=== PATIENT | female | born 1970 | race Caucasian/White ===

== ENCOUNTER 2017-01-27 16:56 | Inpatient (IN) | payer OTHER ==
[~2017-01-27 16:56] MED LIST: DEXTROSE 5% IV ONE; PROPOFOL 200 MG/20 ML AMP IV ONE; SODIUM CHLOR 0.9% 1000 ML INJ 2,000 ML IV ONE; SODIUM CHLORID 0.9% 500 ML INJ 1,000 ML IV ONE; WATE IV ONE
[2017-01-27] MEDS ORDERED: MANNITOL INJ 50 ML ONE ×2 (17:00→17:11)
[2017-01-27] MEDS ORDERED: PROPOFOL 1000 MG/100 ML INJ 100 ML ONE ×2 (17:11→21:06)
[2017-01-27 17:24] LABS: I-STAT POTASSIUM 3.2 MMOL/L (3.5-4.9)
[2017-01-27 17:25] LABS: AUTOMATED NEUTROPHIL # 7.4 TH/MM3 (1.8-7.7); BASOPHIL # 0.1 TH/MM3 (0-0.2); BASOPHIL % 0.6 % (0.0-2.0); EOSINOPHIL # 0.2 TH/MM3 (0-0.4); EOSINOPHIL % 1.2 % (0.0-4.0); HEMATOCRIT 37.4 % (35.0-46.0); LYMPH % 40.5 % (9.0-44.0); LYMPHOCYTE # 5.8 TH/MM3 (1.0-4.8); MEAN CELL VOLUME 94.6 FL (80.0-100.0); MEAN CORPUSCULAR HEMOGLOBIN 32.3 PG (27.0-34.0); MEAN CORPUSCULAR HGB CONC 34.1 % (32.0-36.0); MONO % 6.4 % (0.0-8.0); NEUT % 51.3 % (16.0-70.0); PLATELET COUNT 300 TH/MM3 (150-450); RED BLOOD COUNT 3.95 MIL/MM3 (4.00-5.30); RED CELL DISTRIBUTION WIDTH 11.9 % (11.6-17.2); WHITE BLOOD COUNT 14.3 TH/MM3 (4.0-11.0)
[2017-01-27] MEDS ORDERED: SODIUM CHLORIDE 0.9% FLUSH 10 ML FLUSH IV FLUSH PRN (17:30)
[2017-01-27] MEDS ORDERED: NALOXONE HCL 0.4 MG/ML AMP IV PRN (17:30)
[2017-01-27] MEDS ORDERED: ONDANSETRON HCL 4 MG/2 ML VIAL IV PRN (17:30)
[2017-01-27] MEDS ORDERED: Post-op Orders (for Pharmacy) MISC XX ONE (17:30)
[2017-01-27 17:31] LABS: HEMO FLAGS AUTO DIFF
[2017-01-27 17:37] LABS: APTT (PATIENT) 23.8 SEC (24.3-30.1); PROTHROMBIN TIME - PATIENT 10.7 SEC (9.8-11.6)
[2017-01-27] MEDS ORDERED: 3% SALINE INJ 500 ML IV ONE (17:45)
[2017-01-27] MEDS ORDERED: GELFOAM SIZE 100 ONE (17:48)
[2017-01-27] MEDS ORDERED: THROMBIN (TOPICAL) 5,000 UNIT VIAL ONE (17:48)
[2017-01-27] MEDS ORDERED: GENTAMICIN SULFATE 80 MG/2 ML VIAL ONE (17:49)
--- NOTE | 2017-01-27 17:53 | RADRPT ---
EXAM DATE/TIME: 01/27/2017 16:54 [facility] COMPARISON: None. INDICATIONS : Trauma alert. Patient fell from attic landing on garage floor. MEDICAL HISTORY : None. SURGICAL HISTORY : None. ENCOUNTER: Initial ACUITY: 1 day PAIN SCORE: Non-responsive. LOCATION: Pelvis FINDINGS: Fractures noted involving the left pubic rami. Remaining osseous structures appear intact. The pubic symphysis and SI joints are maintained. The soft tissues are grossly unremarkable. CONCLUSION: 1. Left pubic rami fractures. Otoniel Crain MD on January 27, 2017 at 17:47 Board Certified Radiologist. This report was verified electronically.
[2017-01-27] MEDS ORDERED: VANCOMYCIN HCL 1000 MG VIAL ONE (17:54)
[2017-01-27] MEDS ORDERED: ceFAZolin 2 GM PREMIX 50 ML ONE (17:54)
[2017-01-27] MEDS ORDERED: LIDOCAINE 1%/EPINEPHrine 1:100,000 SOLN 20 ML VIAL ONE (17:55)
--- NOTE | 2017-01-27 17:55 | RADRPT ---
EXAM DATE/TIME: 01/27/2017 17:20 [facility] COMPARISON: No previous studies available for comparison. INDICATIONS : Trauma alert-patient fall. RADIATION DOSE: 56.35 CTDIvol (mGy) MEDICAL HISTORY : Non-responsive. SURGICAL HISTORY : Non-responsive. ENCOUNTER: Initial ACUITY: 1 day PAIN SCALE: Non-responsive LOCATION: Bilateral cranial TECHNIQUE: Multiple contiguous axial images were obtained of the head. Using automated exposure control and adj ustment of the mA and/or kV according to patient size, radiation dose was kept as low as reasonably a chievable to obtain optimal diagnostic quality images. DICOM format image data is available electro nically for review and comparison. FINDINGS: There is a large acute subdural hematoma along the left frontoparietal and temporal lobes which measu res almost 2 cm in greatest width. There may be an additional epidural component more superiorly. T here is significant subfalcine herniation to the right measuring 17 mm. Diffuse effacement of the le ft cerebral sulci is noted. There is an acute temporal bone fracture on the right also. Fluid level s are noted within the left sphenoid sinus and right maxillary sinus. CONCLUSION: 1. Large acute subdural hematoma along the left frontal parietal and temporal lobes measuring 20 mm i n greatest width with possible additional epidural component more superiorly. There is approximately 17 mm of subfalcine herniation to the right as well as diffuse effacement of the left cerebral sulci . 2. Acute right temporal bone fracture. 3. Fluid levels within the right maxillary sinus and left sphenoid sinus. Juan Carlos Jc MD on January 27, 2017 at 17:45 Board Certified Radiologist. This report was verified electronically.
--- NOTE | 2017-01-27 17:55 | RADRPT ---
EXAM DATE/TIME: 01/27/2017 17:25 [facility] COMPARISON: No previous studies available for comparison. INDICATIONS : Trauma alert- patient fall. IV CONTRAST: 90 cc Omnipaque 350 (iohexol) IV RADIATION DOSE: 6.16 CTDIvol (mGy) ; Combined studies - Abdomen/Pelvis MEDICAL HISTORY : Non-responsive. SURGICAL HISTORY : Non-responsive. ENCOUNTER: Initial ACUITY: 1 day PAIN SCALE: Non-responsive LOCATION: Bilateral chest TECHNIQUE: Volumetric scanning of the chest was performed. Using automated exposure control and adjustment of t he mA and/or kV according to patient size, radiation dose was kept as low as reasonably achievable to obtain optimal diagnostic quality images. DICOM format image data is available electronically for review and comparison. Follow-up recommendations for incidentally detected pulmonary nodules are based at a minimum on nodul e size and patient risk factors according to Fleischner Society Guidelines. FINDINGS: LUNGS: There is no consolidation or pneumothorax. No concerning pulmonary nodule is visualized. Minimal pos terior atelectatic changes are noted. PLEURA: There is no pleural thickening or pleural effusion. MEDIASTINUM: The heart and great vessels demonstrate no acute abnormality. There is no mediastinal or hilar lymph adenopathy. AXILLAE: Within normal limits. No lymphadenopathy. SKELETAL: There is a comminuted fracture involving the right scapula. Mild degenerative changes and scoliosis o f the thoracic spine are noted. MISCELLANEOUS: The visualized upper abdominal organs demonstrate no acute abnormality. CONCLUSION: 1. Comminuted fracture involving the right scapula. 2. Minimal posterior atelectatic changes bilaterally. Juan Carlos Jc MD on January 27, 2017 at 17:50 Board Certified Radiologist. This report was verified electronically.
--- NOTE | 2017-01-27 17:59 | RADRPT ---
EXAM DATE/TIME: 01/27/2017 17:25 [facility] COMPARISON: No previous studies available for comparison. INDICATIONS : Trauma Alert IV CONTRAST: 90 cc Omnipaque 350 (iohexol) IV ORAL CONTRAST: No oral contrast ingested. RADIATION DOSE: 6.16 CTDIvol (mGy) ; Combined studies - Thorax/Abdomen/Pelvis MEDICAL HISTORY : Non-responsive. SURGICAL HISTORY : Non-responsive. ENCOUNTER: Initial ACUITY: 1 day PAIN SCALE: Non-responsive LOCATION: Bilateral lower quadrant TECHNIQUE: Volumetric scanning of the abdomen and pelvis was performed. Using automated exposure control and ad justment of the mA and/or kV according to patient size, radiation dose was kept as low as reasonably achievable to obtain optimal diagnostic quality images. DICOM format image data is available electro nically for review and comparison. FINDINGS: LOWER LUNGS: The visualized lower lungs are clear. LIVER: Homogeneous density without lesion. There is no dilation of the biliary tree. No calcified gallston es. SPLEEN: Normal size without lesion. PANCREAS: Within normal limits. KIDNEYS: Normal in size and shape. There is no mass, stone or hydronephrosis. ADRENAL GLANDS: Within normal limits. VASCULAR: There is no aortic aneurysm. BOWEL/MESENTERY: The stomach, small bowel, and colon demonstrate no acute abnormality. There is no free intraperitone al air or fluid. ABDOMINAL WALL: Within normal limits. RETROPERITONEUM: There is no lymphadenopathy. BLADDER: No wall thickening or mass. REPRODUCTIVE: Within normal limits. INGUINAL: There is no lymphadenopathy or hernia. MUSCULOSKELETAL: There are acute fractures involving the right sacrum as well as the left superior and inferior pubic rami. CONCLUSION: 1. Acute fractures along the right sacrum as well as the left superior and inferior pubic rami. 2. No intra-abdominal trauma identified. Juan Carlos Jc MD on January 27, 2017 at 17:54 Board Certified Radiologist. This report was verified electronically.
[2017-01-27] MEDS: PANTOPRAZOLE SODIUM 40 MG VIAL IV SCH (18:00)
[2017-01-27] MEDS: SODIUM CHLOR 0.9% 1000 ML INJ 1,000 ML IV SCH (18:00)
[2017-01-27] MEDS ORDERED: IOHEXOL 350 MG/ML 10 ML VIAL (for RAD DIAG) IV ONE (18:00)
[2017-01-27] MEDS ORDERED: fentaNYL CITRATE 250 MCG/5 ML AMP ONE (18:07)
[2017-01-27 18:08] VITALS: O2SAT 100
--- NOTE | 2017-01-27 18:11 | RADRPT ---
EXAM DATE/TIME: 01/27/2017 17:24 [facility] COMPARISON: No previous studies available for comparison. INDICATIONS : Trauma Alert- fall. RADIATION DOSE: 46.66 CTDIvol (mGy) MEDICAL HISTORY : Non-responsive. SURGICAL HISTORY : Non-responsive. ENCOUNTER: Initial ACUITY: 1 day PAIN SCALE: Non-responsive LOCATION: Bilateral neck region. TECHNIQUE: Volumetric scanning of the cervical spine was performed. Multiplanar reconstructions in the sagittal, coronal and oblique axial planes were performed. Using automated exposure control and adjustment o f the mA and/or kV according to patient size, radiation dose was kept as low as reasonably achievable to obtain optimal diagnostic quality images. DICOM format image data is available electronically f or review and comparison. FINDINGS: There is straightening of the normal cervical lordosis. Cervical spondylosis is noted from C3 throug h C6. There is no acute fracture or prevertebral soft tissue swelling. The bony relationship and al ignment between C1 and C2 is well maintained. No bony spinal canal stenosis is noted. Mild bilatera l foraminal narrowing is noted at C3-4, C4-5 and C5-6. CONCLUSION: 1. No acute fracture or prevertebral soft tissue swelling. 2. Straightening of the normal cervical lordosis. 3. Cervical spondylosis from C3 through C6. 4. Mild bilateral foraminal narrowing at C3-4, C4-5 and C5-6. Juan Carlos Jc MD on January 27, 2017 at 17:58 Board Certified Radiologist. This report was verified electronically.
--- NOTE | 2017-01-27 18:11 | MH ---
cc: NOEMY GARZA MD DATE OF ADMISSION 01/27/2017 DATE OF ADMISSION 01/27/[address] Garza, trauma surgery. ADMISSION DIAGNOSIS Loss of consciousness, large left subdural hematoma, left fixed and blown pupil, left superior and inferior ramus fracture, pubis ramus fracture and right sacral fracture, as well as hematoma of the right forearm with contusion. HISTORY OF THE PRESENT ILLNESS This 46-year-old female was working on her house when she fell through some rafters or something and landed apparently on her head. The patient was brought in as priority one trauma alert on spinal board with a C-collar in place and being ventilated by face mask. On arrival the patient is unconscious with a left blown pupil which is nonreactive. PAST MEDICAL AND SURGICAL HISTORY Unknown. MEDICATIONS Unknown. ALLERGIES UNKNOWN. SOCIAL HISTORY Unknown. PHYSICAL EXAMINATION GENERAL: Reveals a 46-year-old female. HEENT: Normocephalic. trauma to the head consisting of bruising over the left head and the right head. Right pupil is reactive, the left one is fixed about 7 mm in diameter. Extraocular muscles of course are nonfunctioning. The patient has left hemotympanum and the right bleeding from the ear. There is some brain matter on the surface of her hair which may have reached here from the right ear but it is hard to tell. NECK: C-collar is carefully removed. There is no sign of trauma to the neck. This one was repositioned. CHEST: Bilateral breath sounds. HEART: Regular rhythm. Hemodynamically stable. Sustaining blood pressure in the right. ABDOMEN: Soft. Active bowel sounds. EXTREMITIES: The patient has bilateral femoral, popliteal, dorsalis pedis, posterior tibial pulses. No signs of vascular deficit. BACK: The patient log-rolled, there is no sign of trauma to the back. NEUROLOGIC: [place] coma scale is 3. Left pupil is blown to about 7 mm, nonreactive. The right one is reactive, small. Motorically the patient has no motion. Sensory no motion. No reflexes deep or superficial. Babinski is positive left and right. Protocol resuscitation. The patient was resuscitated according to trauma principals. Primary, secondary survey and definitive care consecutively carried out. The patient is taken to CT scan for further studies. FINAL DIAGNOSIS Traumatic severe traumatic brain injury. [place] coma scale 3. Large left temporoparietal subdural hematoma, right basal skull fracture through the petrous bone with extrusion of some brain matter on the right, fracture of the right scapula, left superior inferior ramus pubic fracture with minimal displacement and a right sacral fracture. Patient will be taken immediately to operating room. Dr. Wagner is in the CT scan and came when called and Dr. Garza critical care one hour. Noemy Garza SJ/KK /5:41 PM /5:50 PM
[2017-01-27] MEDS ORDERED: ETOMIDATE 20 MG/10 ML VIAL ONE (18:17)
[2017-01-27 18:33] LABS: EOSINOPHILS 2 % (0-4); MYELOCYTES 2 % (0-0); NEUTROPHIL # MANUAL DIFF 8.3 TH/MM3 (1.8-7.7); POLYS (SEG NEUTROPHILS) 56 % (16-70); WBC DIFF SAMPLE 100
[2017-01-27 18:34] LABS: PLATELET ESTIMATE SMEAR NORMAL (NORMAL); PLATELET MORPHOLOGY NORMAL (NORMAL); SCAN/DIFF FINAL DIFF MANUAL
--- NOTE | 2017-01-27 18:35 | RADRPT ---
EXAM DATE/TIME: 01/27/2017 17:20 [facility] COMPARISON: No previous studies available for comparison. INDICATIONS : Trauma Alert- patient fall. RADIATION DOSE: CTDIvol (mGy) ; Reconstructed from previous dataset, no dose MEDICAL HISTORY : Non-responsive. SURGICAL HISTORY : Non-responsive. ENCOUNTER: Initial ACUITY: 1 day PAIN SCALE: Non-responsive LOCATION: Bilateral mid back region. TECHNIQUE: Volumetric scanning of the thoracic spine was performed. Multiplanar reconstructions in the sagittal , coronal and oblique axial planes were performed. Using automated exposure control and adjustment o f the mA and/or kV according to patient size, radiation dose was kept as low as reasonably achievable to obtain optimal diagnostic quality images. DICOM format image data is available electronically f or review and comparison. FINDINGS: The vertebral bodies of the thoracic spine are in normal alignment without evidence of subluxation. Vertebral body height is maintained. No fractures are seen. T1-T2: Normal. T2-T3: The thecal sac has a normal diameter. No evidence of disc bulge or protrusion. T3-T4: The thecal sac has a normal diameter. No evidence of disc bulge or protrusion. T4-T5: The thecal sac has a normal diameter. No evidence of disc bulge or protrusion. T5-T6: The thecal sac has a normal diameter. No evidence of disc bulge or protrusion. T6-T7: The thecal sac has a normal diameter. No evidence of disc bulge or protrusion. T7-T8: The thecal sac has a normal diameter. No evidence of disc bulge or protrusion. T8-T9: The thecal sac has a normal diameter. No evidence of disc bulge or protrusion. T9-T10: The thecal sac has a normal diameter. No evidence of disc bulge or protrusion. T10-T11: The thecal sac has a normal diameter. No evidence of disc bulge or protrusion. T11-T12: The thecal sac has a normal diameter. No evidence of disc bulge or protrusion. T12-L1: The thecal sac has a normal diameter. No evidence of disc bulge or protrusion. CONCLUSION: 1. No fracture or subluxation. 2. Minimal subcutaneous emphysema seen within the upper neck likely related to patient's temporal bon e fracture. Eb Guerin MD on January 27, 2017 at 18:29 Board Certified Radiologist. This report was verified electronically.
--- NOTE | 2017-01-27 18:37 | RADRPT ---
EXAM DATE/TIME: 01/27/2017 17:20 [facility] COMPARISON: No previous studies available for comparison. INDICATIONS : Trauma Alert- patient fall. RADIATION DOSE: CTDIvol (mGy) ; Reconstructed from previous dataset, no dose MEDICAL HISTORY : Non-responsive. SURGICAL HISTORY : Non-responsive. ENCOUNTER: Initial ACUITY: 1 day PAIN SCALE: Non-responsive LOCATION: Bilateral lower back region. TECHNIQUE: Volumetric scanning of the lumbar spine was performed. Multiplanar reconstructions in the sagittal, coronal and oblique axial planes were performed. Using automated exposure control and adjustment of the mA and/or kV according to patient size, radiation dose was kept as low as reasonably achievable t o obtain optimal diagnostic quality images. DICOM format image data is available electronically for review and comparison. FINDINGS: VERTEBRAE: Normal vertebral body height. ALIGNMENT: No evidence of subluxation. T12-L1: The thecal sac has a normal diameter. No evidence of disc bulge or protrusion. The neural foramina are patent bilaterally. L1-L2: The thecal sac has a normal diameter. No evidence of disc bulge or protrusion. The neural foramina are patent bilaterally. L2-L3: The thecal sac has a normal diameter. No evidence of disc bulge or protrusion. The neural foramina are patent bilaterally. L3-L4: The thecal sac has a normal diameter. No evidence of disc bulge or protrusion. The neural foramina are patent bilaterally. L4-L5: The thecal sac has a normal diameter. No evidence of disc bulge or protrusion. The neural foramina are patent bilaterally. L5-S1: The thecal sac has a normal diameter. No evidence of disc bulge or protrusion. The neural foramina are patent bilaterally. CONCLUSION: 1. No fracture or subluxation of the lumbar spine. 2. There are fractures of the right sacrum discussed in detail on CT the abdomen/pelvis. Eb Guerin MD on January 27, 2017 at 18:34 Board Certified Radiologist. This report was verified electronically.
--- NOTE | 2017-01-27 18:40 | RADRPT ---
EXAM DATE/TIME: 01/27/2017 16:54 [facility] COMPARISON: No previous studies available for comparison. INDICATIONS : Trauma alert. Patient fell from attic on to garage floor. Right forearm hematoma. MEDICAL HISTORY : None. SURGICAL HISTORY : None. ENCOUNTER: Initial ACUITY: 1 day PAIN SCORE: Non-responsive. LOCATION: Right Forearm. FINDINGS: There is soft tissue swelling involving the right mid forearm. No underlying fracture of the radius o r ulna is identified. CONCLUSION: Soft tissue swelling involving the right mid forearm without underlying radial or ulnar fracture. Juan Carlos Jc MD on January 27, 2017 at 18:37 Board Certified Radiologist. This report was verified electronically.
--- NOTE | 2017-01-27 18:45 | RADRPT ---
EXAM DATE/TIME: 01/27/2017 16:54 [facility] COMPARISON: No previous studies available for comparison. INDICATIONS : Trauma alert. Patient fell from attic landing on garage floor. Status post intubation. MEDICAL HISTORY : None. SURGICAL HISTORY : None. ENCOUNTER: Initial ACUITY: 1 day PAIN SCORE: Non-responsive. LOCATION: Chest FINDINGS: An endotracheal tube has its tip 3 cm above the dima. There is an acute fracture involving the rig ht scapula. The heart is normal. The pulmonary vascular pattern is normal. The lungs are clear. The re is no pneumothorax. CONCLUSION: 1. Acute fracture involving the right scapula. 2. Endotracheal tube in good position 3 cm above the dima. Juan Carlos Jc MD on January 27, 2017 at 18:39 Board Certified Radiologist. This report was verified electronically.
--- NOTE | 2017-01-27 18:51 | PD ---
HPI Chief Complaint: Trauma (Alert) Time Seen by Provider: 17:49 Travel History International Travel<30 days: No Contact w/Intl Traveler<30days: No Traveled to known affect area: No History of Present Illness HPI This is a 46-year-old female with unknown past medical history, who presents here as a trauma alert. The patient was reportedly In her attic and fell through to the ground. The patient had a GCS of 3-4 on scene. Paramedics bag valve mask ventilated the patient's and transported her here ALS. When patient arrived she had a fixed and dilated left pupil. Her right pupil was pinpoint at 1 mm. She had a GCS of 3. Unable to obtain history other than from what the paramedics provided. Allergies-Medications (Allergen,Severity, Reaction): Coded Allergies: UNOBTAINABLE (Unverified , 01/27/17) Review of Systems ROS Limitations: Clinical Condition, Altered Mental Status Except as stated in HPI: all other systems reviewed are Neg Physical Exam Narrative GENERAL: Developed well-nourished female being [id number] ventilated in C- spine backboard immobilization. SKIN: Focused skin assessment warm/dry. HEAD: Patient has matted blood on the right side of her head. There was blood and questionable brain matter in her hair. EYES: Left pupil fixed and dilated. Right pupil 1 mm and nonreactive. ENT: Patient had blood in her oropharynx. Patient also had blood noted in her right ear canal. NECK: Trachea midline. C-collar immobilization. CARDIOVASCULAR: Regular rate and rhythm. No murmur appreciated. RESPIRATORY: Patient being [id number] ventilated. There were occasional agonal respirations on top of the ventilation. She was emergently intubated by Dr. Philip. GASTROINTESTINAL: Abdomen soft, nondistended. MUSCULOSKELETAL: No obvious deformities. No clubbing. No cyanosis. No edema. Bruising to her right forearm. NEUROLOGICAL: GCS of 3. E1, V1, M1. Equivocal Babinski. Data Data Last Documented VS Vital Signs Date Time Temp Pulse Resp B/P Pulse Ox O2 Delivery O2 Flow Rate FiO2 01/27/17 18:08 100 100 Orders Mannitol Inj (Mannitol Inj) (01/27/17 17:00) Propofol 1000 Mg/100 Ml Inj (Diprivan 10 (01/27/17 17:11) Mannitol Inj (Mannitol Inj) (01/27/17 17:11) I-Stat Profile (01/27/17 17:00) I-Stat Creatinine (01/27/17 17:00) Complete Blood Count With Diff (01/27/17 17:00) Prothrombin Time / Inr (Pt) (01/27/17 17:00) Act Partial Throm Time (Ptt) (01/27/17 17:00) Type And Screen (01/27/17 17:00) Chest, Single Ap (01/27/17 17:00) Pelvis, Ap Only (Routine) (01/27/17 17:00) Ct Brain W/O Iv Contrast(Rout) (01/27/17 17:00) Ct Cerv Spine W/O Contrast (01/27/17 17:00) Ct Abd/Pel W Iv Contrast(Rout) (01/27/17 17:00) Ct Thorax/ Chest W Iv Contrast (01/27/17 17:00) Ct Thor Spine W/O Contrast (01/27/17 17:00) Ct Lumb Spine W/O Contrast (01/27/17 17:00) Iv Access Insert/Monitor (01/27/17 17:00) Ecg Monitoring (01/27/17 17:00) Oximetry (01/27/17 17:00) Oxygen Administration (01/27/17 17:00) Forearm, One View (01/27/17 ) Admit To Inpatient (01/27/17 ) Code Status (01/27/17 17:24) Vital Signs (Adult) Q4H (01/27/17 17:24) Activity Bed Rest (01/27/17 17:24) Intake + Output BOLIVAR.QSHIFT (01/27/17 17:24) ^ Orogastric Tube (01/27/17 17:24) Diet Npo (01/27/17 Dinner) Sodium Chlor 0.9% 1000 Ml Inj (Ns 1000 M (01/27/17 18:00) Sodium Chloride 0.9% Flush (Ns Flush) (01/27/17 17:30) Sodium Chloride 0.9% Flush (Ns Flush) (01/27/17 21:00) Ondansetron Inj (Zofran Inj) (01/27/17 17:30) Pantoprazole Inj (Protonix Inj) (01/27/17 18:00) Basic Metabolic Panel (Bmp) (01/28/17 06:00) Complete Blood Count With Diff (01/28/17 06:00) Resp Incentive Spirometry (01/27/17 ) Consult Metal Furniture Assembly Supervisor (01/27/17 ) Cefazolin Inj (Ancef Inj) (01/27/17 18:00) Post-Op Orders (For Pharmacy) (Post-Op O (01/27/17 17:30) Naloxone Inj (Narcan Inj) (01/27/17 17:30) Scd Bilateral/Knee High BOLIVAR.QSHIFT (01/27/17 17:24) Inpatient Certification (01/27/17 ) Levetiracetam Inj (Keppra Inj) (01/27/17 21:00) 3% Saline Inj (Sodium Chloride 3% Inj) (01/27/17 17:45) Thrombin Top Soln (Thrombin Top Soln) (01/27/17 17:48) Gelfoam 100 Top (Gelfoam 100 Top) (01/27/17 17:48) Gentamicin Inj (Gentamicin Inj) (01/27/17 17:49) (Hub Use Only)Inp Phy Cons/Ref (01/27/17 ) Vancomycin Inj (Vancomycin Inj) (01/27/17 17:54) Cefazolin 2 Gm Premix (Ancef 2 Gm Premix (01/27/17 17:54) Lidocai-Epi 1%-1:100,000 Inj (Xylocaine- (01/27/17 17:55) Iohexol 350 Inj (Omnipaque 350 Inj) (01/27/17 18:00) Fentanyl Inj (Fentanyl Inj) (01/27/17 18:07) Etomidate Inj (Amidate Inj) (01/27/17 18:17) Admit Order (Ed Use Only) (01/27/17 18:28) Labs Laboratory Tests Test 01/27/17 17:00 White Blood Count 14.3 TH/MM3 Red Blood Count 3.95 MIL/MM3 Hemoglobin 12.7 GM/DL Bedside Hemoglobin 12.2 G/DL Hematocrit 37.4 % Bedside Hematocrit 36.0 % Mean Corpuscular Volume 94.6 FL Mean Corpuscular Hemoglobin 32.3 PG Mean Corpuscular Hemoglobin 34.1 % Concent Red Cell Distribution Width 11.9 % Platelet Count 300 TH/MM3 Mean Platelet Volume 8.5 FL Neutrophils (%) (Auto) 51.3 % Lymphocytes (%) (Auto) 40.5 % Monocytes (%) (Auto) 6.4 % Eosinophils (%) (Auto) 1.2 % Basophils (%) (Auto) 0.6 % Neutrophils # (Auto) 7.4 TH/MM3 Lymphocytes # (Auto) 5.8 TH/MM3 Monocytes # (Auto) 0.9 TH/MM3 Eosinophils # (Auto) 0.2 TH/MM3 Basophils # (Auto) 0.1 TH/MM3 CBC Comment AUTO DIFF Differential Total Cells 100 Counted Neutrophils % (Manual) 56 % Lymphocytes % 37 % Monocytes % 3 % Eosinophils % 2 % Neutrophils # (Manual) 8.3 TH/MM3 Myelocytes 2 % Differential Comment FINAL DIFF MANUAL Atypical Lymphocytes % Platelet Estimate NORMAL Platelet Morphology Comment NORMAL Red Cell Morphology Comment NORMAL Prothrombin Time 10.7 SEC Prothromb Time International 1.0 RATIO Ratio Activated Partial 23.8 SEC Thromboplast Time Bedside Sodium 142 MMOL/L Bedside Potassium 3.2 MMOL/L Bedside Chloride 104 MMOL/L Bedside Blood Urea Nitrogen 17 MG/DL Bedside Creatinine 1.0 MG/DL Bedside Glucose 123 MG/DL Blood Type A POSITIVE Antibody Screen NEGATIVE MDM Medical Screen Exam Complete: Yes Emergency Medical Condition: Yes Interpretation(s) Last [address] Impressions [address]ine CT 01/27/171699 Signed Impressions: Service Date/Time: Friday, January 27, 2017 17:20 - CONCLUSION: 1. No fracture or subluxation. 2. Minimal subcutaneous emphysema seen within the upper neck likely related to patient's temporal bone fracture. Eb Guerin MD Pelvis X-Ray 01/27/171699 Signed Impressions: Service Date/Time: Friday, January 27, 2017 16:54 - CONCLUSION: 1. Left pubic rami fractures. Otoniel Crain MD Chest CT 01/27/171699 Signed Impressions: Service Date/Time: Friday, January 27, 2017 17:25 - CONCLUSION: 1. Comminuted fracture involving the right scapula. 2. Minimal posterior atelectatic changes bilaterally. Juan Carlos Jc MD Abdomen/Pelvis CT 01/27/171699 Signed Impressions: Service Date/Time: Friday, January 27, 2017 17:25 - CONCLUSION: 1. Acute fractures along the right sacrum as well as the left superior and inferior pubic rami. 2. No intra-abdominal trauma identified. Juan Carlos Jc MD Differential Diagnosis Epidural versus subdural hematoma versus skull fracture versus basilar skull fracture versus cervical spine fracture Narrative Course 46-year-old female presents after falling through her attic. The patient has GCS of 3. She was emergently intubated by Dr. Philip in the trauma room. The case was discussed with Dr. Nic Bahena, neurosurgeon, who took the patient emergently to the OR for decompression. Patient's condition was discussed with her and mother and father. They understand the grave condition the patient is an. They understand the she is in critical condition. Critical Care Narrative Aggregate critical care time was 45 minutes. Time to perform other separately billable procedures was not included in the critical care time. My time did not include minutes spent treating any other patients simultaneously or on activities that did not directly contribute to the patient's treatment. The services I provided to this patient were to treat and/or prevent clinically significant deterioration that could result in: I provided critical care services requiring my management, as noted below: Chart data review, documentation time, medication orders and management, vital sign assessments/reviewing monitor data, ordering and reviewing lab tests, ordering and interpreting/reviewing x-rays and diagnostic studies, care of the patient and discussion of the patient with the admitting physicians. Procedures Procedure Narrative Patient was premedicated with 100 mg of lidocaine and 100 mg of succinylcholine. Attempt with the CMAC was made at intubation however unsuccessful. The patient was intubated by Dr. Philip with an 8 ET tube using in-line C-spine immobilization. Trauma Alert - Level One Time Surgeon Summoned: 16:44 Diagnosis Diagnosis: Primary Impression: left epidural hematoma with midline shift Additional Impression: questionable basilar skull fracture Pako Raymundo MD Jan 27, 2017 18:51
--- NOTE | 2017-01-27 19:43 | PD.CONS ---
[facility] Service Critical Care Medicine Consult Requested By Primary Care Physician Unknown History of Present Illness 46-year-old female who according to her family fell through a garage ceiling landing on the floor one-story down. Positive loss of consciousness. Patient was reportedly unresponsive immediately after the event. No seizure activity reported. She was GCS 3-4 at the scene and brought to [facility] emergency room as a trauma alert per EMS. She was intubated in the emergency room. She was noted to have a fixed dilated left pupil and pinpoint right pupil in the emergency room on initial evaluation. The CT Images revealed a large left hemispheric acute subdural hematoma with approximate 16 mm midline shift, significant effacement of the left ventricle and cisterns. Patient was taken emergently to the operating room from the CT scanning suite. Review of Systems ROS Unobtainable patient is sedated and intubated Past Family Social History Allergies: Coded Allergies: UNOBTAINABLE (Unverified , 01/27/17) Past Medical History Unable to obtain Past Surgical History Unobtainable Reported Medications Unobtainable Active Ordered Medications Current Medications Medications (Trade) Dose Ordered Sig/Alexandro Route PRN Reason Start Time Stop Time Status Last Admin Dose Admin Sodium Chloride (NS 1000 ml Inj) 1,000 ml @ 60 mls/hr [id number] IV 01/27/17 18:00 Sodium Chloride (NS Flush) 2 ml UNSCH PRN IV FLUSH FLUSH AFTER USING IV ACCESS 01/27/17 17:30 Sodium Chloride (NS Flush) 2 ml BID IV FLUSH 01/27/17 21:00 01/27/17 21:00 Ondansetron HCl (Zofran Inj) 4 mg Q6H PRN IV NAUSEA OR VOMITING 01/27/17 17:30 Pantoprazole Sodium 40 mg 40 mg Q24H IV 01/27/17 18:00 Cefazolin Sodium/ Sodium Chloride (Ancef Inj/NS Inj) 100 ml @ 200 mls/hr Q8H IV 01/27/17 18:00 01/28/17 10:29 Naloxone HCl 0.4 mg 0.4 mg UNSCH PRN IV SEE LABEL COMMENTS 01/27/17 17:30 Levetriacetam 500 mg/Sodium Chloride 105 ml @ 420 mls/hr Q12HR IV 01/27/17 21:00 01/27/17 23:07 Fentanyl Citrate 250 ml @ 0 mls/hr TITRATE IV 01/27/17 21:15 01/27/17 23:06 Propofol 100 ml @ 0 mls/hr TITRATE IV 01/27/17 21:15 01/27/17 23:06 Sodium Chloride/ Sodium Chloride (Sodium Chloride 23.4% Inj/NS 500 ml Inj) 551 ml @ 40 mls/hr ONCE ONCE IV 01/27/17 22:50 01/28/17 07:31 Family History Unobtainable Social History Unobtainable Physical Exam Vital Signs Vital Signs Date Time Temp Pulse Resp B/P Pulse Ox O2 Delivery O2 Flow Rate FiO2 01/27/17 18:08 100 100 Physical Exam GENERAL: Well-nourished, well-developed patient. SKIN: Warm and dry. HEAD: Status post severe head injury, EVD in place EYES: No scleral icterus. No injection or drainage. NECK: Supple, trachea midline. No JVD or lymphadenopathy. CARDIOVASCULAR: Regular rate and rhythm without murmurs, gallops, or rubs. RESPIRATORY: Breath sounds equal bilaterally. No accessory muscle use. GASTROINTESTINAL: Abdomen soft, non-tender, nondistended. MUSCULOSKELETAL: No cyanosis, or edema. BACK: Nontender without obvious deformity. No CVA tenderness. EXTREMITIES: No clubbing cyanosis or edema Laboratory Laboratory Tests Test 01/27/17 17:00 White Blood Count 14.3 Red Blood Count 3.95 Hemoglobin 12.7 Bedside Hemoglobin 12.2 Hematocrit 37.4 Bedside Hematocrit 36.0 Mean Corpuscular Volume 94.6 Mean Corpuscular Hemoglobin 32.3 Mean Corpuscular Hemoglobin 34.1 Concent Red Cell Distribution Width 11.9 Platelet Count 300 Mean Platelet Volume 8.5 Neutrophils (%) (Auto) 51.3 Lymphocytes (%) (Auto) 40.5 Monocytes (%) (Auto) 6.4 Eosinophils (%) (Auto) 1.2 Basophils (%) (Auto) 0.6 Neutrophils # (Auto) 7.4 Lymphocytes # (Auto) 5.8 Monocytes # (Auto) 0.9 Eosinophils # (Auto) 0.2 Basophils # (Auto) 0.1 CBC Comment AUTO DIFF Differential Total Cells 100 Counted Neutrophils % (Manual) 56 Lymphocytes % 37 Monocytes % 3 Eosinophils % 2 Neutrophils # (Manual) 8.3 Myelocytes 2 Differential Comment FINAL DIFF MANUAL Atypical Lymphocytes Platelet Estimate NORMAL Platelet Morphology Comment NORMAL Red Cell Morphology Comment NORMAL Prothrombin Time 10.7 Prothromb Time International 1.0 Ratio Activated Partial 23.8 Thromboplast Time Bedside Sodium 142 Bedside Potassium 3.2 Bedside Chloride 104 Bedside Blood Urea Nitrogen 17 Bedside Creatinine 1.0 Bedside Glucose 123 Blood Type A POSITIVE Antibody Screen NEGATIVE Result Diagram: 01/27/171699 Imaging Last 24 hours Impressions Thoracic Spine CT 01/27/171699 Signed Impressions: Service Date/Time: Friday, January 27, 2017 17:20 - CONCLUSION: 1. No fracture or subluxation. 2. Minimal subcutaneous emphysema seen within the upper neck likely related to patient's temporal bone fracture. Eb Guerin MD Pelvis X-Ray 01/27/171699 Signed Impressions: Service Date/Time: Friday, January 27, 2017 16:54 - CONCLUSION: 1. Left pubic rami fractures. Otoniel Crain MD Lumbar Spine CT 01/27/171699 Signed Impressions: Service Date/Time: Friday, January 27, 2017 17:20 - CONCLUSION: 1. No fracture or subluxation of the lumbar spine. 2. There are fractures of the right sacrum discussed in detail on CT the abdomen/pelvis. Eb Guerin MD Head CT 01/27/171699 Signed Impressions: Service Date/Time: Friday, January 27, 2017 17:20 - CONCLUSION: 1. Large acute subdural hematoma along the left frontal parietal and temporal lobes measuring 20 mm in greatest width with possible additional epidural component more superiorly. There is approximately 17 mm of subfalcine herniation to the right as well as diffuse effacement of the left cerebral sulci. 2. Acute right temporal bone fracture. 3. Fluid levels within the right maxillary sinus and left sphenoid sinus. Juan Carlos Jc MD Chest X-Ray 01/27/171699 Signed Impressions: Service Date/Time: Friday, January 27, 2017 16:54 - CONCLUSION: 1. Acute fracture involving the right scapula. 2. Endotracheal tube in good position 3 cm above the dima. Juan Carlos Jc MD Chest CT 01/27/171699 Signed Impressions: Service Date/Time: Friday, January 27, 2017 17:25 - CONCLUSION: 1. Comminuted fracture involving the right scapula. 2. Minimal posterior atelectatic changes bilaterally. Juan Carlos Jc MD Cervical Spine CT 01/27/17 1700 Signed Impressions: Service Date/Time: Friday, January 27, 2017 17:24 - CONCLUSION: 1. No acute fracture or prevertebral soft tissue swelling. 2. Straightening of the normal cervical lordosis. 3. Cervical spondylosis from C3 through C6. 4. Mild bilateral foraminal narrowing at C3-4, C4-5 and C5-6. Juan Carlos Jc MD Abdomen/Pelvis CT 01/27/17 1700 Signed Impressions: Service Date/Time: Friday, January 27, 2017 17:25 - CONCLUSION: 1. Acute fractures along the right sacrum as well as the left superior and inferior pubic rami. 2. No intra-abdominal trauma identified. Juan Carlos Jc MD Radius/Ulna X-Ray 01/27/17 0000 Signed Impressions: Service Date/Time: Friday, January 27, 2017 16:54 - CONCLUSION: Soft tissue swelling involving the right mid forearm without underlying radial or ulnar fracture. Juan Carlos Jc MD Chest X-Ray 01/27/17 0000 Signed Impressions: Service Date/Time: Friday, January 27, 2017 21:57 - CONCLUSION: No acute disease. Adequate placement of right jugular central line. Questionable tiny right apical pneumothorax. Followup studies recommended. Eb Guerin MD Assessment and Plan Assessment and Plan Respiratory failure - Intubated for airway protection - No weaning until neurologically improved - Continue mechanical ventilation - End-tidal CO2 Subdural hematoma - Status post emergent evacuation - Monitor ICPs - Hypertonic saline Brain edema - Hypertonic saline - Goal sodium 155 -165 - Every 6 hours sodium level Scapular, pelvic, and sacral fractures - No indication for surgery - Conservative and supportive care DVT GI prophylaxis - Teds SCDs - Hold pharmacological DVT prophylaxis 48 hours - Reevaluate after 48 hours and discuss with neurosurgeon - Protonix Critical Care: The total critical care time was 35 minutes. Time to perform other separately billable procedures was not included in the critical care time. Pastor Fitzpatrick MD Jan 27, 2017 19:43
[2017-01-27 20:46] VITALS: O2SAT 100
[2017-01-27 21:00] VITALS: BP 120/74; PULSE 87; RESP 14; TEMP 98.2; O2SAT 100
[2017-01-27] MEDS: SODIUM CHLORIDE 0.9% FLUSH 10 ML FLUSH IV FLUSH SCH (21:00)
--- NOTE | 2017-01-27 21:26 | PD.CONS ---
History of Present Illness Service Neurosurgery Consult Requested By General surgery trauma service Reason for Consult Traumatic brain injury-left acute subdural hematoma Primary Care Physician Unknown Diagnoses: History of Present Illness Patient is a middle-aged female who according to her family fell through a garage ceiling landing on the floor one-story down. Positive loss of consciousness. Patient was reportedly unresponsive immediately after the event. No seizure activity reported. She was GCS 3-4 at the scene and brought to [facility] emergency room as a trauma alert per EMS. She was intubated in the emergency room. She was noted to have a fixed dilated left pupil and pinpoint right pupil in the emergency room on initial evaluation. The undersigned reviewed the patient's CT scan images shortly after completion while the patient was in the CT scanning suite. Images revealed a large left hemispheric acute subdural hematoma with approximate 16 mm midline shift, significant effacement of the left ventricle and cisterns. Patient was taken emergently to the operating room from the CT scanning suite. Review of Systems Unable to obtain review of systems from the patient. According to the family she is quite healthy with no medical complaints except for occasional gastric problems. Past Family Social History Allergies: Coded Allergies: UNOBTAINABLE (Unverified , 01/27/17) Past Medical History No history of significant cardiac, pulmonary disease, diabetes, hypertension. She has some problems with apparent gastritis or GERD. Past Surgical History Hysterectomy Reported Medications No prescription medications Social History She does not smoke cigarettes or drink alcohol Physical Exam Vital Signs Vital Signs Date Time Temp Pulse Resp B/P Pulse Ox O2 Delivery O2 Flow Rate FiO2 01/27/17 20:46 100 40 01/27/17 18:08 100 100 Physical Exam GENERAL: This is a well-nourished, well-developed patient, intubated. SKIN: No rashes, ecchymoses or lesions. Cool and dry. HEAD: There is blood in her hair. Unable to see a definite scalp laceration. EYES: Sclerae are clear and nonicteric ENT: No periorbital edema or ecchymosis. Positive blood right tympanic membrane and external auditory canal. No obvious facial fracture or deformity. NECK: Cervical collar in place. CARDIOVASCULAR: Regular rate and rhythm without murmurs RESPIRATORY: Intubated. Clear to auscultation. Breath sounds equal bilaterally. No wheezes, rales, or rhonchi. GASTROINTESTINAL: Abdomen soft, nondistended MUSCULOSKELETAL: Edema and mild ecchymosis right midforearm. NEUROLOGICAL: Intubated. No response to voice or command. No eye opening spontaneously or to voice or to deep pain Pupils 5 mm left, 1-2 mm right, nonreactive Absent corneal and oculocephalic responses Occasional agonal-type respiration No response to deep pain all extremities Laboratory Laboratory Tests Test 01/27/17 17:00 White Blood Count 14.3 Red Blood Count 3.95 Hemoglobin 12.7 Bedside Hemoglobin 12.2 Hematocrit 37.4 Bedside Hematocrit 36.0 Mean Corpuscular Volume 94.6 Mean Corpuscular Hemoglobin 32.3 Mean Corpuscular Hemoglobin 34.1 Concent Red Cell Distribution Width 11.9 Platelet Count 300 Mean Platelet Volume 8.5 Neutrophils (%) (Auto) 51.3 Lymphocytes (%) (Auto) 40.5 Monocytes (%) (Auto) 6.4 Eosinophils (%) (Auto) 1.2 Basophils (%) (Auto) 0.6 Neutrophils # (Auto) 7.4 Lymphocytes # (Auto) 5.8 Monocytes # (Auto) 0.9 Eosinophils # (Auto) 0.2 Basophils # (Auto) 0.1 CBC Comment AUTO DIFF Differential Total Cells 100 Counted Neutrophils % (Manual) 56 Lymphocytes % 37 Monocytes % 3 Eosinophils % 2 Neutrophils # (Manual) 8.3 Myelocytes 2 Differential Comment FINAL DIFF MANUAL Atypical Lymphocytes Platelet Estimate NORMAL Platelet Morphology Comment NORMAL Red Cell Morphology Comment NORMAL Prothrombin Time 10.7 Prothromb Time International 1.0 Ratio Activated Partial 23.8 Thromboplast Time Bedside Sodium 142 Bedside Potassium 3.2 Bedside Chloride 104 Bedside Blood Urea Nitrogen 17 Bedside Creatinine 1.0 Bedside Glucose 123 Blood Type A POSITIVE Antibody Screen NEGATIVE Result Diagram: 01/27/171699 Imaging CT scan of the head, cervical spine, thoracic spine, and lumbar spine images all reviewed by the undersigned. Agree with findings as noted below: Thoracic Spine CT 01/27/171699 Signed Impressions: Service Date/Time: Friday, January 27, 2017 17:20 - CONCLUSION: 1. No fracture or subluxation. 2. Minimal subcutaneous emphysema seen within the upper neck likely related to patient's temporal bone fracture. Eb Guerin MD Pelvis X-Ray 01/27/171699 Signed Impressions: Service Date/Time: Friday, January 27, 2017 16:54 - CONCLUSION: 1. Left pubic rami fractures. Otoniel Crain MD Lumbar Spine CT 01/27/171699 Signed Impressions: Service Date/Time: Friday, January 27, 2017 17:20 - CONCLUSION: 1. No fracture or subluxation of the lumbar spine. 2. There are fractures of the right sacrum discussed in detail on CT the abdomen/pelvis. Eb Guerin MD Head CT 01/27/171699 Signed Impressions: Service Date/Time: Friday, January 27, 2017 17:20 - CONCLUSION: 1. Large acute subdural hematoma along the left frontal parietal and temporal lobes measuring 20 mm in greatest width with possible additional epidural component more superiorly. There is approximately 17 mm of subfalcine herniation to the right as well as diffuse effacement of the left cerebral sulci. 2. Acute right temporal bone fracture. 3. Fluid levels within the right maxillary sinus and left sphenoid sinus. Juan Carlos Jc MD Chest X-Ray 01/27/171699 Signed Impressions: Service Date/Time: Friday, January 27, 2017 16:54 - CONCLUSION: 1. Acute fracture involving the right scapula. 2. Endotracheal tube in good position 3 cm above the dima. Juan Carlos Jc MD Chest CT 01/27/171699 Signed Impressions: Service Date/Time: Friday, January 27, 2017 17:25 - CONCLUSION: 1. Comminuted fracture involving the right scapula. 2. Minimal posterior atelectatic changes bilaterally. Juan Carlos Jc MD Cervical Spine CT 01/27/171699 Signed Impressions: Service Date/Time: Friday, January 27, 2017 17:24 - CONCLUSION: 1. No acute fracture or prevertebral soft tissue swelling. 2. Straightening of the normal cervical lordosis. 3. Cervical spondylosis from C3 through C6. 4. Mild bilateral foraminal narrowing at C3-4, C4-5 and C5-6. Juan Carlos Jc MD Abdomen/Pelvis CT 01/27/171699 Signed Impressions: Service Date/Time: Friday, January 27, 2017 17:25 - CONCLUSION: 1. Acute fractures along the right sacrum as well as the left superior and inferior pubic rami. 2. No intra-abdominal trauma identified. Juan Carlos Jc MD Radius/Ulna X-Ray 01/27/17 0000 Signed Impressions: Service Date/Time: Friday, January 27, 2017 16:54 - CONCLUSION: Soft tissue swelling involving the right mid forearm without underlying radial or ulnar fracture. Juan Carlos Jc MD Assessment and Plan Assessment and Plan Impression: 1. Severe acute left hemisphere subdural hematoma with severe midline shift and mass effect. 2. Right temporal bone fracture-nondisplaced Plan: Findings and treatment plan were discussed briefly with the patient's family in the emergency room while the patient was being transported to the operating room. The patient underwent emergency left frontotemporoparietal decompressive craniotomy, evacuation hematoma, placement of ventriculostomy and ICP monitor which will be dictated separately. Postoperatively the patient's ICPs are less than 10. Continuing ventilatory support and full sedation. Seizure prophylaxis Ulcer prophylaxis Non chemical DVT prophylaxis Follow-up CT scan head Discussed with supervisor coke handling postoperative. Nic Bahena MD Jan 27, 2017 21:26
--- NOTE | 2017-01-27 21:37 | PD.OP ---
Operative Report Date of Surgery: Jan 27, 2017 Preoperative Diagnosis: (1) Acute subdural hematoma Acute left hemisphere subdural hematoma Postoperative Diagnosis: (1) Acute subdural hematoma Acute left hemisphere subdural hematoma Procedure: 1. Left decompressive frontotemporoparietal craniotomy for evacuation of acute subdural hematoma. 2. Left frontal ventriculostomy catheter placement 3. Left frontal twist drill for intracranial pressure monitor placement Anesthesia: Gen. endotracheal Surgeon: Nic Bahena Machine Compositor(s): Lorne Jean Operation and Findings: The patient was brought into the operating room and general endotracheal anesthesia induced without difficulty. The Sanchez catheter, and sequential compression devices were in place. The lines were established per anesthesia. The patient was placed in semilateral position on the 3080 table with the head on the horseshoe headrest. All extremities were appropriately padded Appropriate time-out procedure was performed with all personnel present and in agreement The left side of the head was shaved with the clippers and sterilely prepped and draped 1% Xylocaine was used for local infiltration over the incision site which was made over the left frontotemporal parietal area in a curvilinear fashion and carried sharply down to the cranium through the temporalis muscle and fascia. The scalp and temporalis muscle flap were elevated in a single layer with the periosteal elevator and retracted over a laparotomy sponge with the large scalp hooks. The director of curriculum was used to place a single bur hole in the posterior left frontoparietal region and the craniotome was used since to incise the bone flap. The dura was moderately tense upon removal of the bone flap. The dura was opened in a cruciate fashion . The large left hemispheric acute subdural hematoma was evacuated with gentle suction and irrigation. Areas of moderate cortical contusion and subcortical hemorrhage were noted at the mid to lower left temporal region with some active bleeding from these sites. The bipolar forceps were used to control any bleeding at the operative site. There was evidence of moderate cerebral edema and the brain was bulging mildly beyond the edge dura at the the craniotomy site. It was elected to leave the bone flap out and the dura opened to allow for cerebral edema. A 7 mm flat fluted drain was left in place in the subgaleal space The drain was brought out through an incision in the posterior parietal region and secured to the skin with nylon suture The Codman ventriculostomy catheter was placed through a small cortical incision in the left frontal region approximately 1 cm anterior to the coronal suture and 3.5-4 cm lateral to the midline. The ventricle was passed approximately 6 cm intracranially with good return of blood tinged cerebrospinal fluid. The catheter was tunneled beneath the scalp in the posterior parietal region secured and skin with nylon suture and the sterile connector placed. The closure was performed with 2-0 Vicryl for the temporalis muscle fascia and galeal closure and mendel for the skin closure. Following closure, a small incision was made in the left frontal region just behind the hairline and approximately 2-3 cm lateral to the midline. A hand drill was used to place a single twist drill opening in the cranium and the dura was perforated with the 18-gauge spinal needle. The ICP bolt was secured to the cranium. The Saulo ICP transducer was zeroed and placed intracranially and secured to the ICP bolt. A dressing of sterile Telfa, 4 x 4's, and a loose head stockinette was applied. ICP was 4 cm water with dampened wave form in the operating room. The patient was taken to the intensive care unit in stable condition All counts including sponge and needles were correct at the end of the case. Estimated blood loss was 300 cc No specimen was sent to pathology Nic Bahena MD Jan 27, 2017 21:37
[2017-01-27 22:00] VITALS: PULSE 106
--- NOTE | 2017-01-27 22:16 | RADRPT ---
EXAM DATE/TIME: 01/27/2017 21:57 [facility] COMPARISON: No previous studies available for comparison. INDICATIONS : Post central line placement. MEDICAL HISTORY : None. SURGICAL HISTORY : None. ENCOUNTER: Initial ACUITY: 1 day PAIN SCORE: Non-responsive. LOCATION: Bilateral chest FINDINGS: A single view of the chest demonstrates the lungs to be symmetrically aerated without evidence of mas s, infiltrate or effusion. Endotracheal tube unchanged. Right jugular central line with tip in the r ight atrium. Questionable tiny apical pneumothorax. The cardiomediastinal contours are unremarkable. Osseous structures are intact. CONCLUSION: No acute disease. Adequate placement of right jugular central line. Questionable tiny right apical p neumothorax. Followup studies recommended. Eb Guerin MD on January 27, 2017 at 22:13 Board Certified Radiologist. This report was verified electronically.
[2017-01-27] MEDS ORDERED: SODIUM CHLORID 0.9% IV ONE (22:50)
[2017-01-27] MEDS ORDERED: SODIUM CHLORIDE IV ONE (22:50)
[2017-01-27] MEDS: fentaNYL DRIP 250 ML IV SCH (23:06)
[2017-01-27] MEDS: PROPOFOL 1000 MG/100 ML INJ 100 ML IV SCH (23:06)
[2017-01-27] MEDS: levETIRAcetam INJ 500 MG in SODIUM CHLORIDE 0.9% INJ 100 ML IV SCH (23:07)
--- NOTE | 2017-01-27 23:15 | PD.PROCEDR ---
Procedure Note Procedure Centerline placement A time-out was completed verifying correct patient, procedure, site, positioning , and special equipment if applicable. The patient was placed in a dependent position appropriate for central line placement based on the vein to be cannulated. The patients right neck was prepped and draped in sterile fashion. 1% Lidocaine was used to anesthetize the surrounding skin area. A triple lumen 9 -British Cordis catheter was introduced into the the internal jugular vein using the Seldinger technique and under ultrasound guidance. The catheter was threaded smoothly over the guide wire and appropriate blood return was obtained. Each lumen of the catheter was evacuated of air and flushed with sterile saline. The catheter was then sutured in place to the skin and a sterile dressing applied. Perfusion to the extremity distal to the point of catheter insertion was checked and found to be adequate. Estimated Blood Loss: 1ml The patient tolerated the procedure well and there were no complications. Pastor Fitzpatrick MD Jan 27, 2017 23:15
[2017-01-27 23:38] LABS: BICARBONATE 21.4 MEQ/L (21.0-32.0); POTASSIUM 3.2 MEQ/L (3.5-5.1)
[2017-01-28] VITALS (21 sets, daily range): BP systolic 94–134; BP diastolic 56–74; PULSE 74–96; RESP 14–15; TEMP 98.5–99.5; O2SAT 100
[2017-01-28 00:12] LABS: CALCIUM-PROTEIN CORRECTED 7.2 MG/DL (8.5-10.1)
[2017-01-28] MEDS: SODIUM CHLORIDE IV SCH ×2 (00:14→17:30)
[2017-01-28] MEDS: SODIUM CHLORID 0.9% IV SCH ×2 (00:14→17:30)
[2017-01-28] MEDS ORDERED: ICU - D/C ICU ELECTROLYTE ORDERS PRN (01:00)
[2017-01-28] MEDS ORDERED: ICU - MAGNESIUM OXIDE 400 MG TAB PO PRN (01:00)
[2017-01-28] MEDS ORDERED: ICU - MAGNESIUM SULFATE 4 GM/NS 100 ML IV PRN ×2 (01:00)
[2017-01-28] MEDS ORDERED: SODIUM CHLOR 0.9% 1000 ML INJ 2,000 ML IV ONE (01:00)
[2017-01-28] MEDS ORDERED: ICU - CALL ORDERING PHYSICIAN PRN (01:00)
[2017-01-28] MEDS ORDERED: ICU - SODIUM PHOSPHATE 30 MMOL/NS 250 ML IV PRN ×2 (01:00)
[2017-01-28] MEDS ORDERED: SODIUM CHLORIDE 23.4% INJ 120 MEQ in SYRINGE/BAG 1 EA IV ONE (01:00)
[2017-01-28] MEDS ORDERED: ICU - POTASSIUM PHOSPHATE MONOBASIC 500 MG TAB PO PRN (01:00)
[2017-01-28] MEDS ORDERED: POTASSIUM CHLORIDE 25 MEQ EFFERVESCENT TAB PO PRN (01:00)
[2017-01-28] MEDS ORDERED: ICU - POTASSIUM CHLORIDE/AQUEOUS SOLN 20 MEQ/100 ML IVPB IV PRN (01:00)
[2017-01-28] MEDS ORDERED: ICU - MAGNESIUM SULFATE 2 GM/NS 100 ML IV PRN ×2 (01:00)
[2017-01-28] MEDS: SODIUM CHLOR 0.9% 1000 ML INJ 1,000 ML IV SCH ×2 (02:20→10:44)
[2017-01-28] MEDS: ICU - POTASSIUM CHLORIDE/AQUEOUS SOLN 40 MEQ/100 ML IVPB IV PRN (04:11)
[2017-01-28 05:17] LABS: BLOOD GAS BASE EXCESS -4.3 mmol/L (-2-2); BLOOD GAS CARBOXYHEMOGLOBIN 0.8 % (0-4); BLOOD GAS HCO3 20 mmol/L (22-26); BLOOD GAS METHEMOGLOBIN 1.3 % (0-2); BLOOD GAS O2 HGB SATURATION 98 % (90-100); BLOOD GAS OXYGEN CONTENT 10.5 Vol % (12.0-20.0); BLOOD GAS PCO2 35 mmHg (38-42); BLOOD GAS PO2 188 mmHg (61-120); BLOOD GAS TOTAL HGB 7.3 G/DL (12.0-16.0); CRITICAL VALUE NO; DRAW SITE ART LINE; FIO2 40 %; OXYGEN DEVICE VENTILATOR; STAT NO; TEMP CORR TO 98.6; VENT SETTINGS AC/14/500/PEEP 5
[2017-01-28 05:50] LABS: AUTOMATED NEUTROPHIL # 9.8 TH/MM3 (1.8-7.7); BASOPHIL % 0.1 % (0.0-2.0); HEMATOCRIT 21.9 % (35.0-46.0); HEMO FLAGS DIFF FINAL; LYMPH % 5.5 % (9.0-44.0); LYMPHOCYTE # 0.6 TH/MM3 (1.0-4.8); MEAN CELL VOLUME 94.8 FL (80.0-100.0); MEAN CORPUSCULAR HEMOGLOBIN 32.2 PG (27.0-34.0); NEUT % 88.4 % (16.0-70.0); PLATELET COUNT 135 TH/MM3 (150-450); RED BLOOD COUNT 2.31 MIL/MM3 (4.00-5.30); WHITE BLOOD COUNT 11.1 TH/MM3 (4.0-11.0)
[2017-01-28] MEDS: PROPOFOL 1000 MG/100 ML INJ 100 ML IV SCH (05:57)
[2017-01-28 06:07] LABS: MRSA PCR NEGATIVE (NEGATIVE); STAPH AUREUS PCR NEGATIVE (NEGATIVE)
[2017-01-28 06:17] LABS: BICARBONATE 19.3 MEQ/L (21.0-32.0); CALCIUM-PROTEIN CORRECTED 7.8 MG/DL (8.5-10.1); MAGNESIUM 1.5 MG/DL (1.5-2.5); POTASSIUM 4.1 MEQ/L (3.5-5.1); TOTAL BILIRUBIN ADULT 0.6 MG/DL (0.2-1.0)
--- NOTE | 2017-01-28 06:33 | RADRPT ---
EXAM DATE/TIME: 01/28/2017 05:49 [facility] COMPARISON: CT THORAX W CONTRAST, January 27, 2017, 17:25. CHEST SINGLE AP, January 27, 2017, 21:57. INDICATIONS : Respiratory distress. MEDICAL HISTORY : None. SURGICAL HISTORY : None. ENCOUNTER: Subsequent ACUITY: 2 days PAIN SCORE: Non-responsive. LOCATION: Bilateral chest FINDINGS: Portable AP view of the chest demonstrates a normal-sized cardiac silhouette. A right IJ line and ETT remain present. Nasogastric tube is in place with distal tip in the proximal stomach. There is a sma ll right pneumothorax, increased in size from the prior study. No pleural effusion or air space conso lidation is present. CONCLUSION: 1. There is a small right pneumothorax, increased in size from the prior study. 2. Remainder of the examination demonstrates no acute finding. Emerson Mariee MD on January 28, 2017 at 6:29 Board Certified Radiologist. This report was verified electronically.
[2017-01-28] MEDS ORDERED: NOREPINEPHRINE 4 MG/4 ML AMP ONE (06:37)
[2017-01-28] MEDS ORDERED: NOREPINEPHRINE-DEXTROSE DRIP 250 ML IV SCH (07:00)
[2017-01-28] MEDS ORDERED: TERBUTALINE INJ 1 MG/ML AMP SQ PRN (07:00)
--- NOTE | 2017-01-28 08:14 | HHI.CCPN ---
Subjective Remarks/Hospital Course 46-year-old female who according to her family fell through a garage ceiling landing on the floor one-story down. Positive loss of consciousness. Patient was reportedly unresponsive immediately after the event. No seizure activity reported. She was GCS 3-4 at the scene and brought to [facility] emergency room as a trauma alert per EMS. She was intubated in the emergency room. She was noted to have a fixed dilated left pupil and pinpoint right pupil in the emergency room on initial evaluation. The CT Images revealed a large left hemispheric acute subdural hematoma with approximate 16 mm midline shift, significant effacement of the left ventricle and cisterns. Patient was taken emergently to the operating room from the CT scanning suite. SUBJ 01/28/17: s/p Left decompressive frontotemporoparietal craniotomy for evacuation of acute subdural hematoma. Left frontal ventriculostomy catheter placement, and Left frontal twist drill for intracranial pressure monitor placement. ICP well controlled. Small to moderate line associated pneumothorax associated with central line placement. Started on Levophed to maintain MAP, CPP Objective Vital Signs Date Time Temp Pulse Resp B/P Pulse Ox O2 Delivery O2 Flow Rate FiO2 01/28/17 06:00 96 01/28/17 04:03 100 40 01/28/17 04:00 98.7 14 98/58 01/27/17 21:00 Mechanical Ventilator Intake and Output 01/27/17 01/27/17 01/28/17 08:00 16:00 00:00 Intake Total 2025 ml Output Total 1170 ml Balance 855 ml Result Diagram: 01/28/17 0510 01/28/17 0510 Other Results Laboratory Tests Test 01/28/17 04:56 Blood Gas Puncture Site ART LINE Blood Gas Patient Temperature 98.6 Blood Gas HCO3 20 mmol/L (22-26) Blood Gas Base Excess -4.3 mmol/L (-2-2) Blood Gas Oxygen Saturation 98 % (90-100) Arterial Blood pH 7.38 (7.380-7.420) Arterial Blood Partial 35 mmHg (38-42) Pressure CO2 Arterial Blood Partial 188 mmHg Pressure O2 (61-120) Arterial Blood Oxygen Content 10.5 Vol % (12.0-20.0) Arterial Blood 0.8 % (0-4) Carboxyhemoglobin Arterial Blood Methemoglobin 1.3 % (0-2) Blood Gas Hemoglobin 7.3 G/DL (12.0-16.0) Oxygen Delivery Device VENTILATOR Blood Gas Ventilator Setting AC/14/500/PEEP 5 Blood Gas Inspired Oxygen 40 % Imaging Last 24 hours Impressions Thoracic Spine CT 01/27/171699 Signed Impressions: Service Date/Time: Friday, January 27, 2017 17:20 - CONCLUSION: 1. No fracture or subluxation. 2. Minimal subcutaneous emphysema seen within the upper neck likely related to patient's temporal bone fracture. Eb Guerin MD Pelvis X-Ray 01/27/171699 Signed Impressions: Service Date/Time: Friday, January 27, 2017 16:54 - CONCLUSION: 1. Left pubic rami fractures. Otoniel Crain MD Lumbar Spine CT 01/27/171699 Signed Impressions: Service Date/Time: Wednesday, January 27, 2017 17:20 - CONCLUSION: 1. No fracture or subluxation of the lumbar spine. 2. There are fractures of the right sacrum discussed in detail on CT the abdomen/pelvis. Eb Guerin MD Head CT 01/27/171699 Signed Impressions: Service Date/Time: Friday, January 27, 2017 17:20 - CONCLUSION: 1. Large acute subdural hematoma along the left frontal parietal and temporal lobes measuring 20 mm in greatest width with possible additional epidural component more superiorly. There is approximately 17 mm of subfalcine herniation to the right as well as diffuse effacement of the left cerebral sulci. 2. Acute right temporal bone fracture. 3. Fluid levels within the right maxillary sinus and left sphenoid sinus. Juan Carlos Jc MD Chest X-Ray 01/27/171699 Signed Impressions: Service Date/Time: Friday, January 27, 2017 16:54 - CONCLUSION: 1. Acute fracture involving the right scapula. 2. Endotracheal tube in good position 3 cm above the dima. Juan Carlos Jc MD Chest CT 01/27/171699 Signed Impressions: Service Date/Time: Friday, January 27, 2017 17:25 - CONCLUSION: 1. Comminuted fracture involving the right scapula. 2. Minimal posterior atelectatic changes bilaterally. Juan Carlos Jc MD Cervical Spine CT 7/26/17 1700 Signed Impressions: Service Date/Time: Friday, January 27, 2017 17:24 - CONCLUSION: 1. No acute fracture or prevertebral soft tissue swelling. 2. Straightening of the normal cervical lordosis. 3. Cervical spondylosis from C3 through C6. 4. Mild bilateral foraminal narrowing at C3-4, C4-5 and C5-6. Juan Carlos Jc MD Abdomen/Pelvis CT 01/27/17 1700 Signed Impressions: Service Date/Time: Friday, January 27, 2017 17:25 - CONCLUSION: 1. Acute fractures along the right sacrum as well as the left superior and inferior pubic rami. 2. No intra-abdominal trauma identified. Juan Carlos Jc MD Radius/Ulna X-Ray 01/27/17 0000 Signed Impressions: Service Date/Time: Friday, January 27, 2017 16:54 - CONCLUSION: Soft tissue swelling involving the right mid forearm without underlying radial or ulnar fracture. Juan Carlos Jc MD Chest X-Ray 01/27/17 0000 Signed Impressions: Service Date/Time: Friday, January 27, 2017 21:57 - CONCLUSION: No acute disease. Adequate placement of right jugular central line. Questionable tiny right apical pneumothorax. Followup studies recommended. Eb Guerin MD Objective Remarks GENERAL: Well-nourished, well-developed patient. SKIN: Warm and dry. HEAD: Status post severe head injury, EVD in place EYES: No scleral icterus. No injection or drainage. Pupils 3 mm briskly reactive. NECK: Supple, trachea midline. No JVD or lymphadenopathy. CARDIOVASCULAR: Regular rate and rhythm without murmurs, gallops, or rubs. RESPIRATORY: Breath sounds equal bilaterally. No accessory muscle use. GASTROINTESTINAL: Abdomen soft, non-tender, nondistended. MUSCULOSKELETAL: No cyanosis, or edema. BACK: Nontender without obvious deformity. No CVA tenderness. EXTREMITIES: No clubbing cyanosis or edema NEURO: Able to 3 mm briskly reactive. Moves extremities spontaneously A/P Assessment and Plan NEURO: Severe acute left hemisphere subdural hematoma with midline shift and mass effect Right temporal bone fracture-nondisplaced - Status post emergent evacuation, EVD and ICP monitor placement by Dr. Bahena - Monitor ICP-well controlled overnight - Hypertonic saline, keep Na 150-155 - Mannitol if needed - Dr. Bahena. Follow up CT head per him - Marzena for sz prophylaxis - Encouraging neuro exam RESP: Acute Respiratory failure Iatrogenic pneumothorax - Intubated for airway protection - No weaning until neurologically improved - Continue mechanical ventilation - End-tidal CO2 - Place R pigtail chest tube CVS: Hypotension - Levophed to keep CPP 60-70 - NS 1L additional bolus - Flow trac monitoring GI: - NPO IV Protonix : - Monitor UO. Monitor BUN/creatinine ID: - Perioperative antibiotics per Dr. Bahena Endo: - Electrolyte replacement per protocol MSK: Scapular, pelvic, and sacral fractures - No indication for surgery - Conservative and supportive care DVT GI prophylaxis - Teds SCDs - Hold pharmacological DVT prophylaxis 48 hours - Reevaluate after 48-72 hours and discuss with neurosurgeon - Protonix Critical Care: The total critical care time was 40 minutes. Time to perform other separately billable procedures was not included in the critical care time. Oscar Norman MD Jan 28, 2017 08:14
[2017-01-28] MEDS: SODIUM CHLORIDE 0.9% FLUSH 10 ML FLUSH IV FLUSH SCH ×2 (08:47→20:55)
[2017-01-28] MEDS: levETIRAcetam INJ 500 MG in SODIUM CHLORIDE 0.9% INJ 100 ML IV SCH ×4 (08:47→21:00)
--- NOTE | 2017-01-28 09:06 | RADRPT ---
EXAM DATE/TIME: 01/28/2017 08:47 [facility] COMPARISON: CHEST SINGLE AP, January 27, 2017, 21:57. CHEST SINGLE AP, January 28, 2017, 5:49. INDICATIONS : Evaluate for pneumothorax. MEDICAL HISTORY : Unobtainable. SURGICAL HISTORY : Unobtainable. ENCOUNTER: Subsequent ACUITY: 2 days PAIN SCORE: Non-responsive. LOCATION: Bilateral chest FINDINGS: There is a stable ETT, right subclavian catheter, and NGT in the stomach. Right apical pneumothorax h as minimally enlarged in size now measuring approximately 2.6 cm. No significant mediastinal shift. C ardiomegaly without contours are stable. Remainder of the exam is unchanged. CONCLUSION: Minimal interval enlargement of right apical pneumothorax, now measuring approximately 2.6 cm. Otoniel Crain MD on January 28, 2017 at 9:03 Board Certified Radiologist. This report was verified electronically.
--- NOTE | 2017-01-28 09:57 | RADRPT ---
EXAM DATE/TIME: 01/28/2017 09:30 [facility] COMPARISON: CHEST SINGLE AP, January 28, 2017, 8:47. INDICATIONS : Chest tube placement MEDICAL HISTORY : None. SURGICAL HISTORY : None. ENCOUNTER: Subsequent ACUITY: 2 days PAIN SCORE: Non-responsive. LOCATION: chest FINDINGS: There is a stable ETT, NGT, and right IJ central line. Interval placement of small bore right-sided c hest tube. Slight interval improvement in right apical pneumothorax with residual pneumothorax measur ing approximately 1.8 cm. Remainder of the exam is unchanged. CONCLUSION: Interval placement of a right apical chest tube with mild interval improvement of right apical pneumo thorax now measuring 1.8 cm. Otoniel Crain MD on January 28, 2017 at 9:53 Board Certified Radiologist. This report was verified electronically.
[2017-01-28] MEDS ORDERED: CALCIUM GLUCONATE INJ 2 GM in DEXTROSE 5% IN WATER 100ML INJ 100 ML IV ONE ×2 (11:00)
--- NOTE | 2017-01-28 11:17 | PD.PROCEDR ---
Procedure Note Procedure Procedure: Right pigtail chest tube placement Indication: Moderate R apical pneumothorax A time-out was completed verifying correct patient, procedure, site, positioning. The patient's right upper chest was prepped and draped in a sterile manner after the appropriate infiltration level was confirmed by ultrasound. 1% lidocaine was used anesthetize the surrounding skin. A 10-blade scalpel used to make the incision. 18G needle was then introduced without difficulty and into the pleural space and air was withdrawn. Guidewire was placed through the needle and the needle was removed. A 7 Indonesian dilator was used, followed by placement of 8 Indonesian pigtail catheter over the guidewire using Seldinger technique. Guidewire was removed and pigtail was connected to the Vacutainer. A post-procedure chest x-ray was checked which showed improvement in the pneumothorax. Estimated Blood Loss: <1 ml. The patient tolerated the procedure well and there were no immediate complications. Oscar Norman MD Jan 28, 2017 11:17
[2017-01-28] MEDS: DOCUSATE SODIUM 100 MG/10 ML UDC PO SCH ×2 (11:44→20:55)
--- NOTE | 2017-01-28 12:18 | HHI.NSPN ---
(Marques Moreno) History Chief Complaint: Unable to obtain due to clinical condition. (Marques Moreno) Interval History 01/27: Patient is a middle-aged female who according to her family fell through a garage ceiling landing on the floor one-story down. Positive loss of consciousness. Patient was reportedly unresponsive immediately after the event. No seizure activity reported. She was GCS 3-4 at the scene and brought to [facility] emergency room as a trauma alert per EMS. She was intubated in the emergency room. She was noted to have a fixed dilated left pupil and pinpoint right pupil in the emergency room on initial evaluation. The undersigned reviewed the patient's CT scan images shortly after completion while the patient was in the CT scanning suite. Images revealed a large left hemispheric acute subdural hematoma with approximate 16 mm midline shift, significant effacement of the left ventricle and cisterns. Patient was taken emergently to the operating room from the CT scanning suite. 01/28: The patient is intubated and mechanically ventilated with propofol & fentanyl for sedation. She is on norepinephrine for blood pressure support which Nursing states she is titrating down. Nursing also reported that the patient did squeeze with her hands this morning. The patient was transfused this morning for a haemoglobin of 7.4. (Marques Moreno) System Review Comments Unable to obtain due to clinical condition. (Marques Moreno) Exam Results Vital Signs Date Time Temp Pulse Resp B/P Pulse Ox O2 Delivery O2 Flow Rate FiO2 01/28/17 11:51 100 40 01/28/17 10:00 78 01/28/17 08:35 99.1 15 96/74 01/28/17 07:00 Mechanical Ventilator Intake and Output 01/27/17 01/27/17 01/28/17 08:00 16:00 00:00 Intake Total 2025 ml Output Total 1170 ml Balance 855 ml (Marques Moreno) Physical Examination GENERAL: The patient is intubated and mechanically ventilated with propofol at 5 mcg/kg/min and fentanyl at 50 mcg/hr infusing for sedation. SKIN: Skin warm & dry. Several abrasions noted w/o any erythema, streaking or active drainage noted. Ecchymosis to right forearm, no rashes or other lesions noted. HEENT: Intact surgical dressing from craniotomy w/pressure monitoring bolt & ventriculostomy, THA drain to bulb suction w/serosanguinous drainage. PERRLA. Orally intubated. OGT. NECK: No JVD, trachea midline, right IJ central venous catheter. CARDIOVASCULAR: S1S2 w/RRR w/o M/G/R, radial & pedal pulses 2+ bilaterally, cap refill < 2 sec, no pedal edema. Monitor is sinus rhythm w/o any ectopy noted. On norepinephrine drip at 3 mcg/min. RESPIRATORY: CTAB w/o W/R/R, equal excursion, nonlaboured, intubated and mechanically ventilated. GASTROINTESTINAL: Abdomen soft, positive bowel sounds, OGT to LIWS. MUSCULOSKELETAL: Scattered abrasions. Ecchymosis & swelling right forearm. No evident deformities or clubbing. NEUROLOGICAL: Moves BLE to stimuli, GCS 6T (E1 V1T M4). No response to voice or command. No eye opening spontaneously or to voice or to deep pain. PERRL 2-3 mm. LLE withdraws to localised & central noxious stimuli, trace movement of RUE to stimuli, no response with BUE. Nursing did report patient did squeeze w/left hand. Ventriculostomy at 5 cm H2O pressure with yellow CSF noted on top of pinkish. [place] ICP noted to be 8 when seen. (Marques Moreno) Lab, Micro, Other Results Allergies Coded Allergies Type Severity Reaction Last Updated Verified UNOBTAINABLE 01/27/17 No Recent Impressions Chest X-Ray 01/28/17 0600 Signed Impressions: Service Date/Time: January 05:49 - CONCLUSION: 1. There is a small right pneumothorax, increased in size from the prior study. 2. Remainder of the examination demonstrates no acute finding. Emerson Mariee MD Chest X-Ray 01/28/17 0000 Signed Impressions: Service Date/Time: January 09:30 - CONCLUSION: Interval placement of a right apical chest tube with mild interval improvement of right apical pneumothorax now measuring 1.8 cm. Otoniel Crain MD Chest X-Ray 01/28/17 0000 Signed Impressions: Service Date/Time: January 08:47 - CONCLUSION: Minimal interval enlargement of right apical pneumothorax, now measuring approximately 2.6 cm. Otoniel Crain MD Thoracic Spine CT 01/27/17 170 Signed Impressions: Service Date/Time: Friday, January 27, 2017 17:20 - CONCLUSION: 1. No fracture or subluxation. 2. Minimal subcutaneous emphysema seen within the upper neck likely related to patient's temporal bone fracture. Eb Guerin MD Pelvis X-Ray 01/27/171699 Signed Impressions: Service Date/Time: Wednesday, January 27, 2017 16:54 - CONCLUSION: 1. Left pubic rami fractures. Otoniel Crain MD Lumbar Spine CT 01/27/171699 Signed Impressions: Service Date/Time: Friday, January 27, 2017 17:20 - CONCLUSION: 1. No fracture or subluxation of the lumbar spine. 2. There are fractures of the right sacrum discussed in detail on CT the abdomen/pelvis. Eb Guerin MD Head CT [id number]/27/171699 Signed Impressions: Service Date/Time: Friday, January 27, 2017 17:20 - CONCLUSION: 1. Large acute subdural hematoma along the left frontal parietal and temporal lobes measuring 20 mm in greatest width with possible additional epidural component more superiorly. There is approximately 17 mm of subfalcine herniation to the right as well as diffuse effacement of the left cerebral sulci. 2. Acute right temporal bone fracture. 3. Fluid levels within the right maxillary sinus and left sphenoid sinus. Juan Carlos Jc MD Chest X-Ray [id number]/27/171699 Signed Impressions: Service Date/Time: Friday, January 27, 2017 16:54 - CONCLUSION: 1. Acute fracture involving the right scapula. 2. Endotracheal tube in good position 3 cm above the dima. Juan Carlos Jc MD Chest CT 01/27/171699 Signed Impressions: Service Date/Time: Friday, January 27, 2017 17:25 - CONCLUSION: 1. Comminuted fracture involving the right scapula. 2. Minimal posterior atelectatic changes bilaterally. Juan Carlos Jc MD Cervical Spine CT 01/27/17 1700 Signed Impressions: Service Date/Time: Friday, January 27, 2017 17:24 - CONCLUSION: 1. No acute fracture or prevertebral soft tissue swelling. 2. Straightening of the normal cervical lordosis. 3. Cervical spondylosis from C3 through C6. 4. Mild bilateral foraminal narrowing at C3-4, C4-5 and C5-6. Juan Carlos Jc MD Abdomen/Pelvis CT 01/27/17 1700 Signed Impressions: Service Date/Time: Friday, January 27, 2017 17:25 - CONCLUSION: 1. Acute fractures along the right sacrum as well as the left superior and inferior pubic rami. 2. No intra-abdominal trauma identified. Juan Carlos Jc MD Radius/Ulna X-Ray 01/27/17 0000 Signed Impressions: Service Date/Time: Friday, January 27, 2017 16:54 - CONCLUSION: Soft tissue swelling involving the right mid forearm without underlying radial or ulnar fracture. Juan Carlos Jc MD Chest X-Ray 01/27/17 0000 Signed Impressions: Service Date/Time: Friday, January 27, 2017 21:57 - CONCLUSION: No acute disease. Adequate placement of right jugular central line. Questionable tiny right apical pneumothorax. Followup studies recommended. Eb Guerin MD ///// 06:00 18:00 06:00 18:00 06:00 18:00 Intake Total 3349 ml Output Total 1902 ml Balance 1447 ml Intake IV Total 3349 ml Output Urine Total 1725 ml Gastric Drainage Total 20 ml Drainage Total 157 ml # Bowel Movements 0 Laboratory Tests Test 01/27/17 01/27/17 01/28/17 01/28/17 17:00 23:00 04:56 05:10 White Blood Count 14.3 TH/MM3 11.1 TH/MM3 Red Blood Count 3.95 MIL/MM3 2.31 MIL/MM3 Hemoglobin 12.7 GM/DL 7.4 GM/DL Bedside Hemoglobin 12.2 G/DL Hematocrit 37.4 % 21.9 % Bedside Hematocrit 36.0 % Mean Corpuscular Volume 94.6 FL 94.8 FL Mean Corpuscular Hemoglobin 32.3 PG 32.2 PG Mean Corpuscular Hemoglobin 34.1 % 34.0 % Concent Red Cell Distribution Width 11.9 % 12.0 % Platelet Count 300 TH/MM3 135 TH/MM3 Mean Platelet Volume 8.5 FL 8.0 FL Neutrophils (%) (Auto) 51.3 % 88.4 % Lymphocytes (%) (Auto) 40.5 % 5.5 % Monocytes (%) (Auto) 6.4 % 6.0 % Eosinophils (%) (Auto) 1.2 % 0.0 % Basophils (%) (Auto) 0.6 % 0.1 % Neutrophils # (Auto) 7.4 TH/MM3 9.8 TH/MM3 Lymphocytes # (Auto) 5.8 TH/MM3 0.6 TH/MM3 Monocytes # (Auto) 0.9 TH/MM3 0.7 TH/MM3 Eosinophils # (Auto) 0.2 TH/MM3 0.0 TH/MM3 Basophils # (Auto) 0.1 TH/MM3 0.0 TH/MM3 CBC Comment AUTO DIFF DIFF FINAL Differential Total Cells 100 Counted Neutrophils % (Manual) 56 % Lymphocytes % 37 % Monocytes % 3 % Eosinophils % 2 % Neutrophils # (Manual) 8.3 TH/MM3 Myelocytes 2 % Differential Comment FINAL DIFF MANUAL Atypical Lymphocytes % Platelet Estimate NORMAL Platelet Morphology Comment NORMAL Red Cell Morphology Comment NORMAL Prothrombin Time 10.7 SEC Prothromb Time International 1.0 RATIO Ratio Activated Partial 23.8 SEC Thromboplast Time Bedside Sodium 142 MMOL/L Bedside Potassium 3.2 MMOL/L Bedside Chloride 104 MMOL/L Bedside Blood Urea Nitrogen 17 MG/DL Bedside Creatinine 1.0 MG/DL Bedside Glucose 123 MG/DL Blood Type A POSITIVE Antibody Screen NEGATIVE Nasal Screen MRSA (PCR) NEGATIVE Sodium Level 146 MEQ/L 148 MEQ/L Potassium Level 3.2 MEQ/L 4.1 MEQ/L Chloride Level 117 MEQ/L 119 MEQ/L Carbon Dioxide Level 21.4 MEQ/L 19.3 MEQ/L Anion Gap 8 MEQ/L 10 MEQ/L Blood Urea Nitrogen 12 MG/DL 11 MG/DL Creatinine 0.70 MG/DL 0.80 MG/DL Estimat Glomerular Filtration 72 ML/MIN 62 ML/MIN Rate Random Glucose 167 MG/DL 166 MG/DL Calcium Level 5.6 MG/DL 6.5 MG/DL Protein Corrected Calcium 7.2 MG/DL 7.8 MG/DL Total Protein 3.6 GM/DL 4.5 GM/DL Staphylococcus aureus NEGATIVE (PCR)(LAB) Blood Gas Puncture Site ART LINE Blood Gas Patient Temperature 98.6 Blood Gas HCO3 20 mmol/L Blood Gas Base Excess -4.3 mmol/L Blood Gas Oxygen Saturation 98 % Arterial Blood pH 7.38 Arterial Blood Partial 35 mmHg Pressure CO2 Arterial Blood Partial 188 mmHg Pressure O2 Arterial Blood Oxygen Content 10.5 Vol % Arterial Blood 0.8 % Carboxyhemoglobin Arterial Blood Methemoglobin 1.3 % Blood Gas Hemoglobin 7.3 G/DL Oxygen Delivery Device VENTILATOR Blood Gas Ventilator Setting AC/14/500/PEEP 5 Blood Gas Inspired Oxygen 40 % Phosphorus Level 2.1 MG/DL Magnesium Level 1.5 MG/DL Total Bilirubin 0.6 MG/DL Aspartate Amino Transf 70 U/L (AST/SGOT) Alanine Aminotransferase 55 U/L (ALT/SGPT) Alkaline Phosphatase 68 U/L Albumin 2.3 GM/DL Test 01/28/17 07:49 Blood Type A POSITIVE Crossmatch Leukocyte-Reduced Red Blood Cells Blood Bank Comment Procedure Category Date Status Time Mannitol Inj MED 01/27/17 Complete (Mannitol Inj) 17:00 Propofol 1000 Mg/100 MED 01/27/17 Complete Ml Inj (Diprivan 10 17:11 Mannitol Inj MED 01/27/17 Complete (Mannitol Inj) 17:11 I-Stat Profile LAB 01/27/17 Complete 17:00 I-Stat Creatinine LAB 01/27/17 Complete 17:00 Complete Blood Count LAB 01/27/17 Complete With Diff 17:00 Prothrombin Time / LAB 01/27/17 Complete Inr (Pt) 17:00 Act Partial Throm LAB 01/27/17 Complete Time (Ptt) 17:00 Type And Screen BBK 01/27/17 Complete 17:00 Chest, Single Ap RADDIAG 01/27/17 Resulted 17:00 Pelvis, Ap Only RADDIAG 01/27/17 Resulted (Routine) 17:00 Ct Brain W/O Iv RADCT 01/27/17 Resulted Contrast(Rout) 17:00 Ct Cerv Spine W/O RADCT 01/27/17 Resulted Contrast 17:00 Ct Abd/Pel W Iv RADCT 01/27/17 Resulted Contrast(Rout) 17:00 Ct Thorax/ Chest W Iv RADCT 01/27/17 Resulted Contrast 17:00 Ct Thor Spine W/O RADCT 01/27/17 Resulted Contrast 17:00 Ct Lumb Spine W/O RADCT 01/27/17 Resulted Contrast 17:00 Iv Access TX 01/27/17 Transmitted Insert/Monitor 17:00 Ecg Monitoring TX 01/27/17 Transmitted 17:00 Oximetry TX 01/27/17 Transmitted 17:00 Oxygen Administration TX 01/27/17 Transmitted 17:00 Forearm, One View RADDIAG 01/27/17 Resulted Admit To Inpatient ADMITTING 01/27/17 Transmitted Code Status CODE 01/27/17 Transmitted 17:24 Vital Signs (Adult) BOLIVAR 01/27/17 In Process 17:24 Activity Bed Rest BOLIVAR 01/27/17 In Process 17:24 Intake + Output BOLIVAR 01/27/17 In Process 17:24 ^ Orogastric Tube BOLIVAR 01/27/17 In Process 17:24 Diet Npo DIET 01/27/17 Transmitted Dinner Sodium Chlor 0.9% MED 01/27/17 In Process 1000 Ml Inj (Ns 1000 M 18:00 Sodium Chloride 0.9% MED 01/27/17 In Process Flush (Ns Flush) 17:30 Sodium Chloride 0.9% MED 01/27/17 In Process Flush (Ns Flush) 21:00 Ondansetron Inj MED 01/27/17 In Process (Zofran Inj) 17:30 Pantoprazole Inj MED 01/27/17 In Process (Protonix Inj) 18:00 Complete Blood Count LAB 01/28/17 Complete With Diff 06:00 Resp Incentive RSP 01/27/17 Complete Spirometry Consult Prosthodontist CONS 01/27/17 Transmitted Cefazolin Inj (Ancef MED 01/27/17 Complete Inj) 18:00 Post-Op Orders (For MED 01/27/17 Complete Pharmacy) (Post-Op O 17:30 Naloxone Inj (Narcan MED 01/27/17 In Process Inj) 17:30 Scd Bilateral/Knee BOLIVAR 01/27/17 In Process High 17:24 Inpatient ADMITTING 01/27/17 Transmitted Certification Levetiracetam Inj MED 01/27/17 In Process (Keppra Inj) 21:00 3% Saline Inj (Sodium MED 01/27/17 Complete Chloride 3% Inj) 17:45 Thrombin Top Soln MED 01/27/17 Complete (Thrombin Top Soln) 17:48 Gelfoam 100 Top MED 01/27/17 Complete (Gelfoam 100 Top) 17:48 Gentamicin Inj MED 01/27/17 Complete (Gentamicin Inj) 17:49 (Hub Use Only)Inp Phy CONS 01/27/17 Transmitted Cons/Ref Vancomycin Inj MED 01/27/17 Complete (Vancomycin Inj) 17:54 Cefazolin 2 Gm Premix MED 01/27/17 Complete (Ancef 2 Gm Premix 17:54 Lidocai-Epi MED 01/27/17 Complete 1%-1:100,000 Inj 17:55 Iohexol 350 Inj MED 01/27/17 Complete (Omnipaque 350 Inj) 18:00 Fentanyl Inj MED 01/27/17 Complete (Fentanyl Inj) 18:07 Etomidate Inj MED 01/27/17 Complete (Amidate Inj) 18:17 Admit Order (Ed Use ADMITTING 01/27/17 Transmitted Only) 18:28 Urinary Catheter BOLIVAR 01/27/17 In Process Management 19:16 Fentanyl Inj MED 01/27/17 Complete (Fentanyl Inj) 19:57 Propofol 1000 Mg/100 MED 01/27/17 Complete Ml Inj (Diprivan 10 21:06 Neurological Rass BOLIVAR 01/27/17 In Process Scale 21:15 Fentanyl Drip MED 01/27/17 In Process (Fentanyl Drip) 21:15 Propofol 1000 Mg/100 MED 01/27/17 In Process Ml Inj (Diprivan 10 21:15 Chest, Single Ap RADDIAG 01/27/17 Resulted Arterial Blood Gas LAB 01/28/17 Complete (Abg) 06:00 Comprehensive LAB 01/28/17 Complete Metabolic Panel 06:00 Magnesium (Mg) LAB 01/28/17 Complete 06:00 Phosphorus (Po4) LAB 01/28/17 Complete 06:00 Chest, Single Ap RADDIAG 01/28/17 Resulted 06:00 Restraints Non-Violent BOLIVAR 01/27/17 Complete 22:23 Resp Ventilation- RSP 01/27/17 Logged Volume Sodium Chloride 23.4% MED 01/27/17 Complete Inj (Sodium Chlori 22:50 Basic Metabolic Panel LAB 01/27/17 Complete (Bmp) 22:54 Protein Corrected LAB 01/27/17 Complete Calcium(Pcc) 23:00 Sodium (Na) LAB 01/28/17 Logged 12:03 Sodium (Na) LAB 01/28/17 Logged 18:03 Sodium (Na) LAB 01/29/17 Verified 00:03 Sodium (Na) LAB 01/29/17 Verified 06:03 Sodium (Na) LAB 01/29/17 Verified 12:03 Sodium (Na) LAB 01/29/17 Verified 18:03 Sodium (Na) LAB 01/30/17 Verified 00:03 Sodium (Na) LAB 01/30/17 Verified 06:03 Sodium (Na) LAB 01/30/17 Verified 12:03 Sodium (Na) LAB 01/30/17 Verified 18:03 Sodium (Na) LAB 01/31/17 Verified 00:03 Sodium (Na) LAB 01/31/17 Verified 06:03 Sodium (Na) LAB 01/31/17 Verified 12:03 Sodium (Na) LAB 01/31/17 Verified 18:03 Sodium Chlor 0.9% MED 01/28/17 Complete 1000 Ml Inj (Ns 1000 M 01:00 Sodium Chloride 23.4% MED 01/28/17 Complete Inj (Sodium Chlori 01:00 Sodium Chloride 23.4% MED 01/28/17 In Process Inj (Sodium Chlori 01:00 Misc Nursing MED 01/28/17 In Process Information 01:00 Misc Nursing MED 01/28/17 In Process Information 01:00 Potassium Chlor 40 MED 01/28/17 In Process Meq Premix (Kcl 40 Me 01:00 Potassium Chloride MED 01/28/17 In Process Eff (K-Lyte Cl Eff) 01:00 Potassium Chlor 20 MED 01/28/17 In Process Meq Premix (Kcl 20 Me 01:00 Magnesium Sulfate Inj MED 01/28/17 In Process (Magnesium Sulfate 01:00 Magnesium Sulfate Inj MED 01/28/17 In Process (Magnesium Sulfate 01:00 Magnesium Oxide MED 01/28/17 In Process (Mag-Ox) 01:00 Sodium Phosphate Inj MED 01/28/17 In Process (Sodium Phosphate I 01:00 Potassium Phosphate MED 01/28/17 In Process (K-Phos) 01:00 Potassium Phosphate MED 01/28/17 In Process Inj (Potassium Phosp 01:00 Nasal Mrsa/Sa Pcr LAB 01/28/17 Complete 04:01 Norepinephrine Inj MED 01/28/17 Complete (Levophed Inj) 06:37 Trauma Office Use NTRACS 01/28/17 Transmitted Only Norepinephrine-Dextrose MED 01/28/17 In Process Drip (Levophed-D 07:00 Terbutaline Inj MED 01/28/17 In Process (Brethine Inj) 07:00 Red Blood Cells (Rbc) BBK 01/28/17 In Process 07:36 Consult Daniel Gts CONS 01/28/17 Transmitted Consult Neurosurgery CONS 01/28/17 Transmitted Consult Orthopedic CONS 01/28/17 Transmitted Case Management CONS 01/28/17 Transmitted Consult Consult Pt Eval & PT 01/28/17 Logged Treat 07:44 Ot Request For Service OT 01/28/17 Logged 07:44 (Hub Use Only)Inp Phy CONS 01/28/17 Transmitted Cons/Ref Magnesium (Mg) LAB 01/29/17 Verified 05:00 Complete Blood Count LAB 01/29/17 Verified With Diff 05:00 Chest, Single Ap RADDIAG 01/29/17 Verified 06:00 Arterial Blood Gas LAB 01/29/17 Verified (Abg) 06:00 Comprehensive LAB 01/29/17 Verified Metabolic Panel 05:00 Phosphorus (Po4) LAB 01/29/17 Verified 05:00 Chest, Single Ap RADDIAG 01/28/17 Resulted (Hub Use Only)Inp Phy CONS 01/28/17 Transmitted Cons/Ref Chest, Single Ap RADDIAG 01/28/17 Resulted Levetiracetam Inj MED 01/28/17 In Process (Keppra Inj) 09:30 Calcium Gluconate Inj MED 01/28/17 Complete (Calcium Gluconate 11:00 Pt Activity PT 01/28/17 Logged 10:55 Hgb & Hct LAB 01/28/17 In Process 12:00 Magnesium Hydroxide MED 01/28/17 In Process Liq (Milk Of Magnesi 21:00 Docusate Sodium Liq MED 01/28/17 In Process (Colace Liq) 11:30 Vital Signs Date Time Temp Pulse Resp B/P Pulse Ox O2 Delivery O2 Flow Rate FiO2 01/28/17 11:51 100 40 01/28/17 10:00 78 01/28/17 08:56 100 40 01/28/17 08:35 99.1 86 15 96/74 100 01/28/17 08:00 40 01/28/17 08:00 99.5 86 15 106/58 100 01/28/17 08:00 79 01/28/17 07:00 100 Mechanical Ventilator 40 01/28/17 06:00 96 01/28/17 04:03 100 40 01/28/17 04:00 92 01/28/17 04:00 40 01/28/17 04:00 98.7 92 14 98/58 100 01/28/17 02:00 88 01/28/17 00:45 100 40 01/28/17 00:00 98.5 86 14 94/56 100 01/28/17 00:00 86 01/28/17 00:00 40 01/27/17 22:00 106 01/27/17 21:00 98.2 87 14 120/74 100 01/27/17 21:00 100 Mechanical Ventilator 40 01/27/17 20:46 100 40 01/27/17 18:08 100 100 (Marques Moreno) Medical Decision Making Impression and Plan Impression: 1. Severe acute left hemisphere subdural hematoma with severe midline shift and mass effect. 2. Right temporal bone fracture-nondisplaced Leukocytosis, interval improvement (14.3=>11.1) Anaemia, interval improvement after transfusion (12.7=>7.4=>10.1) Thrombocytopenia (300=>135) Sodium 148 Hypokalemia, resolved (3.2=>4.1) Decreased eGFR (72=>62) Hypophosphatemia (2.1) THA drain w/100 mL Ventriculostomy w/57 mL Patient with improved neurological response, still critical. POD #1 () s/p: 1. Left decompressive frontotemporoparietal craniotomy for evacuation of acute subdural hematoma. 2. Left frontal ventriculostomy catheter placement 3. Left frontal twist drill for intracranial pressure monitor placement Plan: Primary management per Prosthodontist/Trauma. Frequent neuro checks. Stat CT brain for worsening neuro status. Continue hypertonic saline. Continuing ventilatory support and full sedation. Seizure prophylaxis. Ulcer prophylaxis. Non chemical DVT prophylaxis. (Marques Moreno) Attending Statement I have personally seen and examined the patient on 01/28/17. Pertinent documentation and study results have been reviewed by the undersigned. I have personally developed the treatment plan and performed medical decision making. Agree with findings, exam, and treatment plan as noted above. ICPs remained below 10. Postoperative CT scan reveals the ICP transducer lead likely deflected off the dura into the epidural space. Ventriculostomy in place The significant midline shift. Continuing ventilator support, intravenous sedation, adjustment of fluids to maintain adequate sodium level. On prophylactic anticonvulsants (Nic Bahena MD) Marques Moreno Jan 28, 2017 12:18 Nic Bahena MD Jan 29, 2017 22:23
[2017-01-28 12:19] LABS: HEMATOCRIT 29.6 % (35.0-46.0); REVIEW FLAG FINAL
--- NOTE | 2017-01-28 14:21 | RADRPT ---
EXAM DATE/TIME: 01/28/2017 13:46 [place] COMPARISON: CHEST SINGLE AP, January 28, 2017, 9:30. INDICATIONS : Pneumothorax. MEDICAL HISTORY : Unobtainable. SURGICAL HISTORY : Unobtainable. ENCOUNTER: Subsequent ACUITY: 2 days PAIN SCORE: Non-responsive. LOCATION: Right cranial FINDINGS: Stable ETT, NGT, and right IJ central line. Stable right sided chest tube with interval resolution of right-sided pneumothorax. Remainder of exam is unchanged. CONCLUSION: 1. Stable right-sided chest tube with interval resolution of right-sided pneumothorax. Otoniel Crain MD on January 28, 2017 at 14:18 Board Certified Radiologist. This report was verified electronically.
--- NOTE | 2017-01-28 15:29 | MB ---
cc: WING SINGLETON DATE OF CONSULTATION 01/28/2017 CHIEF COMPLAINT Multiple pelvic fractures and a right scapular fracture status post fall. HISTORY OF PRESENT ILLNESS The patient is a 46-year-old female who was working on her house when she fell through some of the rafters in the attic and apparently landed on her head. The patient's daughter was nearby and witnessed the fall and immediately called EMS. She was brought as a Priority I Trauma Alert to [facility]. The patient was unconscious on arrival and apparently had a left blown pupil which was nonreactive. Since then she was taken for a craniectomy by Dr. Thibodeaux and is intubated and sedated on the unit. The nurse reports that her pupil has returned back to full function and that she is improving. Scans were done in the [facility] which revealed fractures of her pelvis as well as her right scapula. PAST MEDICAL AND SURGICAL HISTORY Unknown and unobtainable. MEDICATIONS Unknown and unobtainable. ALLERGIES Unknown and unobtainable. SOCIAL HISTORY Unknown and unobtainable. REVIEW OF SYSTEMS Unobtainable except what is mentioned in the HPI. PHYSICAL EXAMINATION VITALS: Pulse 78, temperature 99.1, blood pressure 96/74 and O2 saturation is 100 on mechanical ventilator. GENERAL: Intubated, sedated, 42-year-old female who is unresponsive. HEAD: Multiple bandages on the upper aspect of her head with an intracranial bolt present. EYES: Pupils are equal, round, react to light. CRANIAL NERVES: Unable to assess. HEARING: Unable to assess. NECK: Supple. No evidence of lymphadenopathy. Heart: No evidence of grade 4 murmur. ABDOMEN: Soft and nontender. LUNGS: Mechanically ventilated, no audible wheezes at bedside. HEART: No evidence of grade 4 murmur present. MUSCULOSKELETAL: The patient is in restraints. Examination of the right upper extremity reveals no crepitus with motion of the shoulder, elbow, wrist or fingers. Good capillary refill distally. Left upper extremity examination reveals no crepitus with movement of the shoulder, elbow, wrist or fingers. Good capillary refill distally. Significant bruising of the hand and fingers. Bilateral lower extremities - No crepitus noted with motion of the hips, knees, ankles or toes. She has good capillary refill distally and bilaterally. IMAGING STUDIES CT scan of the thorax was reviewed from [facility] which shows a minimally displaced right scapula fracture. AP pelvis x-ray was reviewed from [facility] which shows left superior and inferior pubic rami fractures that are well-aligned. Pelvic CT scan was reviewed from [facility] which reveals minimally displaced left superior and inferior pubic rami fractures as well as a right minimally displaced sacral fracture. ASSESSMENT 1. Right sacral fracture. 2. Left superior and inferior pubic rami fractures. 3. Right scapular fracture. PLAN At this point the fractures the patient has sustained are nonoperative. They are well aligned and should heal well with conservative measures. I will encourage her to remain non-weightbearing on the right arm and maintain a sling. She may do pendular exercises for motion. She will be toe-touch weightbearing on the right leg and full weightbearing on the left leg. As long as these fractures maintain in position, they should heal well and she should have a positive outcome. At this time she is intubated, sedated and unresponsive. No further orthopedic care should be needed at this time. She is a nonsurgical candidate. We will follow along and place physical therapy orders appropriately. If any other problems arise, please reconsult orthopedics. Thank you for this consultation. The above patient was reviewed and discussed with Dr. Singleton. He understands and agrees. Dictated by: Edward Vázquez PA-C MD EVA Camp/LIS /10:49 AM /7:58 AM I also saw and examined this patient. History, past medical history, social history, review of systems, physical exam, radiographs, assessment, and plan were also reviewed. Plan on nonoperative treatment. A mid-level provider in my office (nurse practitioner or physician academic support assistant) may see this patient on follow-up visits and continue to implement the objectives of this plan including : Starting or adjusting medications, injections, cast application, orthotics, brace application, physical therapy, radiological studies (including x-ray, MRI , CT, ultrasound, bone scan), vascular studies, neurologic studies, specialist consultation, and proceeding with surgical management, as appropriate. RONNIE
--- NOTE | 2017-01-28 16:12 | RADRPT ---
EXAM DATE/TIME: 01/28/2017 15:14 [facility] COMPARISON: CT BRAIN W/O CONTRAST, January 27, 2017, 17:20. INDICATIONS : Fall with left subdural hematoma. RADIATION DOSE: 57.53 CTDIvol (mGy) MEDICAL HISTORY : None SURGICAL HISTORY : Cranial sx yesterday. ENCOUNTER: Subsequent ACUITY: 2 days PAIN SCALE: Non-responsive LOCATION: Left cranial TECHNIQUE: Multiple contiguous axial images were obtained of the head. Using automated exposure control and adj ustment of the mA and/or kV according to patient size, radiation dose was kept as low as reasonably a chievable to obtain optimal diagnostic quality images. DICOM format image data is available electro nically for review and comparison. FINDINGS: CEREBRUM: Interval left parietal craniectomy with evacuation of the previously seen large left subdural hematom a. Small subdural persists inferiorly measuring 6 mm in depth. There is also placement of an intraven tricular drain with marked reduction in the left to right subfalcine shift, previously measuring 1.7 cm and now measuring 4 mm. Subdural blood tracks along the left tentorium. POSTERIOR FOSSA: The cerebellum and brainstem are intact. The 4th ventricle is midline. The cerebellopontine angle i s unremarkable. EXTRACRANIAL: The visualized portion of the orbits is intact. Fluid in the right mastoid air cells associated with the right temporal bone fracture. There also appears to be hyperdense blood in the paranasal sinuses. SKULL: Decompressive left craniectomy. Fracture through the right temporal bone as noted previously. CONCLUSION: 1. Post surgical changes with left parietal craniectomy and evacuation of most of the previously seen large left subdural hematoma. A small subdural persists inferiorly measuring approximately 6 mm in d epth. 2. Marked improvement in the previously seen left to right subfalcine shift previously measuring 17 m m and now measuring 4 mm. 3. Persistent subdural component tracking along the left tentorium. 4. Right temporal bone fracture with fluid in the right mastoid air cells. Hyperdense blood in the pa ranasal sinuses. Isaak Uriarte MD on January 28, 2017 at 15:58 Board Certified Radiologist. This report was verified electronically.
[2017-01-28] MEDS: PANTOPRAZOLE SODIUM 40 MG VIAL IV SCH (17:30)
--- NOTE | 2017-01-28 19:10 | HHI.CCPN ---
Subjective Brief History severe traumatic brain injury. Yoandy coma scale 3. Large left temporoparietal subdural hematoma, right basal skull fracture through the petrous bone with extrusion of some brain matter on the right, fracture of the right scapula, left superior inferior ramus pubic fracture with minimal displacement and a right sacral fracture. Patient will be taken immediately to the operating room. Patient underwent a left frontotemporal craniectomy with evacuation of subdural hematoma and placement of ventriculostomy Orthopedic consult was obtained and no further operative management will be instituted 24 Hour Review/Hospital Course Patient has been in the ICU overnight intubated and ventilated Objective Vital Signs Date Time Temp Pulse Resp B/P Pulse Ox O2 Delivery O2 Flow Rate FiO2 01/28/17 18:00 88 01/28/17 16:59 100 40 01/28/17 16:00 99.5 14 120/68 01/28/17 07:00 Mechanical Ventilator Intake and Output 01/27/17 01/27/17 01/27/17 07:59 15:59 23:59 Intake Total 2025 ml Output Total 1170 ml Balance 855 ml Result Diagram: 01/28/17 1156 01/28/17 1800 Other Results Laboratory Tests Test 01/28/17 04:56 Blood Gas Puncture Site ART LINE Blood Gas Patient Temperature 98.6 Blood Gas HCO3 20 mmol/L (22-26) Blood Gas Base Excess -4.3 mmol/L (-2-2) Blood Gas Oxygen Saturation 98 % (90-100) Arterial Blood pH 7.38 (7.380-7.420) Arterial Blood Partial 35 mmHg (38-42) Pressure CO2 Arterial Blood Partial 188 mmHg Pressure O2 (61-120) Arterial Blood Oxygen Content 10.5 Vol % (12.0-20.0) Arterial Blood 0.8 % (0-4) Carboxyhemoglobin Arterial Blood Methemoglobin 1.3 % (0-2) Blood Gas Hemoglobin 7.3 G/DL (12.0-16.0) Oxygen Delivery Device VENTILATOR Blood Gas Ventilator Setting AC/14/500/PEEP 5 Blood Gas Inspired Oxygen 40 % Imaging Last [address] 01/28/17 2263 Signed Impressions: Service Date/Time: January 15:14 - CONCLUSION: 1. Post surgical changes with left parietal craniectomy and evacuation of most of the previously seen large left subdural hematoma. A small subdural persists inferiorly measuring approximately 6 mm in depth. 2. Marked improvement in the previously seen left to right subfalcine shift previously measuring 17 mm and now measuring 4 mm. 3. Persistent subdural component tracking along the left tentorium. 4. Right temporal bone fracture with fluid in the right mastoid air cells. Hyperdense blood in the paranasal sinuses. Isaak Uriarte MD Chest X-Ray 01/28/17 0600 Signed Impressions: Service Date/Time: January 05:49 - CONCLUSION: 1. There is a small right pneumothorax, increased in size from the prior study. 2. Remainder of the examination demonstrates no acute finding. Emerson Mariee MD Chest X-Ray 01/28/17 0000 Signed Impressions: Service Date/Time: January 13:46 - CONCLUSION: 1. Stable right-sided chest tube with interval resolution of right-sided pneumothorax. Otoniel Crain MD Chest X-Ray 01/28/17 0000 Signed Impressions: Service Date/Time: January 09:30 - CONCLUSION: Interval placement of a right apical chest tube with mild interval improvement of right apical pneumothorax now measuring 1.8 cm. Otoniel Crain MD Chest X-Ray 01/28/17 0000 Signed Impressions: Service Date/Time: January 08:47 - CONCLUSION: Minimal interval enlargement of right apical pneumothorax, now measuring approximately 2.6 cm. Otoniel Crain MD Exam [facility]ER Severe traumatic brain injury with extrusion of the brain matter through the base of the skull fracture Status post frontotemporal craniectomy and evacuation of subdural hematoma Ventriculostomy ICP around 8 mmHg Patient is deeply, toes however the left blown pupil has receded and patient has now bilateral 3 mm pupils poorly reactive Remains on propofol and fentanyl Hypertonic 3% saline at 30 cc an hour Keppra Hemodynamic/Cardiac Hemodynamically intact Pulmonary/Respiratory Bilateral breath sounds fully ventilatory supported Abdomen/GI Nutrition Abdomen soft Renal/I&O Preserved renal function Assessment and Plan Attestation Plan Keep patient intubated and ventilated with gradual decrease of sedation as long as intracranial pressure remains low Prognosis from this injury is guarded but eventually poor in the face of severe brain damage Critical care 40 minutes Noemy Philip MD Jan 28, 2017 19:10
[2017-01-28] MEDS: fentaNYL DRIP 250 ML IV SCH (20:56)
[2017-01-28] MEDS ORDERED: MAGNESIUM HYDROXIDE SUSP 30 ML CUP PO SCH (21:00)
[2017-01-29] VITALS (17 sets, daily range): BP systolic 126–140; BP diastolic 55–73; PULSE 84–119; RESP 14–17; TEMP 98.6–100.4; O2SAT 100
[2017-01-29 04:51] LABS: BLOOD GAS BASE EXCESS -2.9 mmol/L (-2-2); BLOOD GAS HCO3 22 mmol/L (22-26); BLOOD GAS O2 HGB SATURATION 98 % (90-100); BLOOD GAS OXYGEN CONTENT 12.9 Vol % (12.0-20.0); BLOOD GAS PCO2 39 mmHg (38-42); BLOOD GAS PO2 181 mmHg (61-120); BLOOD GAS TOTAL HGB 9.1 G/DL (12.0-16.0); CRITICAL VALUE NO; DRAW SITE ART LINE; FIO2 40 %; OXYGEN DEVICE VENTILATOR; STAT NO; TEMP CORR TO 98.6; VENT SETTINGS AC 14/500/5PEEP
--- NOTE | 2017-01-29 05:52 | RADRPT ---
EXAM DATE/TIME: 01/29/2017 05:13 [facility] COMPARISON: CHEST SINGLE AP, January 28, 2017, 13:46. INDICATIONS : Respiratory distress. MEDICAL HISTORY : Unobtainable SURGICAL HISTORY : Unobtainable ENCOUNTER: Subsequent ACUITY: 3 days PAIN SCORE: Non-responsive. LOCATION: Bilateral chest FINDINGS: Single AP view of the chest. Endotracheal tube, nasogastric tube, right sided pigtail chest catheter, right IJ central venous catheter remain in place. Lungs are grossly clear. No evidence of pleural ef fusion or pneumothorax. CONCLUSION: Lines and tubes remain in place. No evidence of pneumothorax. Kenny Velarde MD on January 29, 2017 at 5:49 Board Certified Radiologist. This report was verified electronically.
[2017-01-29] MEDS: PROPOFOL 1000 MG/100 ML INJ 100 ML IV SCH (05:58)
[2017-01-29] MEDS: SODIUM CHLOR 0.9% 1000 ML INJ 1,000 ML IV SCH ×2 (05:58→23:00)
[2017-01-29 06:19] LABS: AUTOMATED NEUTROPHIL # 9.7 TH/MM3 (1.8-7.7); BASOPHIL % 0.1 % (0.0-2.0); HEMATOCRIT 27.6 % (35.0-46.0); HEMO FLAGS DIFF FINAL; LYMPH % 10.9 % (9.0-44.0); LYMPHOCYTE # 1.3 TH/MM3 (1.0-4.8); MEAN CORPUSCULAR HEMOGLOBIN 30.3 PG (27.0-34.0); MEAN CORPUSCULAR HGB CONC 34.4 % (32.0-36.0); MONO % 9.7 % (0.0-8.0); NEUT % 79.3 % (16.0-70.0); PLATELET COUNT 121 TH/MM3 (150-450); RED BLOOD COUNT 3.13 MIL/MM3 (4.00-5.30); RED CELL DISTRIBUTION WIDTH 17.8 % (11.6-17.2); WHITE BLOOD COUNT 12.2 TH/MM3 (4.0-11.0)
[2017-01-29 07:11] LABS: ALKALINE PHOSPHATASE 64 U/L (45-117); ALT (GPT) 39 U/L (10-53); ANION GAP 7 MEQ/L (5-15); AST (GOT) 46 U/L (15-37); BICARBONATE 22.9 MEQ/L (21.0-32.0); BLOOD UREA NITROGEN 11 MG/DL (7-18); CHLORIDE 123 MEQ/L (98-107); GLOMERULAR FILTRATION RATE 123 ML/MIN (>89); MAGNESIUM 2.1 MG/DL (1.5-2.5); POTASSIUM 3.6 MEQ/L (3.5-5.1); SODIUM (NA) 153 MEQ/L (136-145); TOTAL BILIRUBIN ADULT 1.1 MG/DL (0.2-1.0)
[2017-01-29] MEDS: levETIRAcetam INJ 500 MG in SODIUM CHLORIDE 0.9% INJ 100 ML IV SCH ×3 (08:48→21:01)
[2017-01-29] MEDS: SODIUM CHLORIDE 0.9% FLUSH 10 ML FLUSH IV FLUSH SCH ×2 (08:48→21:00)
[2017-01-29] MEDS: DOCUSATE SODIUM 100 MG/10 ML UDC PO SCH (08:48)
[2017-01-29] MEDS ORDERED: niCARdipine INJ 25 MG in SODIUM CHLOR 0.9% 250 ML INJ 250 ML IV SCH (10:15)
[2017-01-29] MEDS ORDERED: LABETALOL HCL 100 MG/20 ML VIAL IV PUSH PRN (10:15)
[2017-01-29] MEDS ORDERED: hydrALAZINE HCL 20 MG/ML VIAL IV PUSH PRN (10:15)
[2017-01-29] MEDS ORDERED: BISACODYL 10 MG SUPP RECTAL PRN (10:15)
--- NOTE | 2017-01-29 10:19 | HHI.CCPN ---
Subjective Remarks/Hospital Course 46-year-old female who according to her family fell through a garage ceiling landing on the floor one-story down. Positive loss of consciousness. Patient was reportedly unresponsive immediately after the event. No seizure activity reported. She was GCS 3-4 at the scene and brought to [facility] emergency room as a trauma alert per EMS. She was intubated in the emergency room. She was noted to have a fixed dilated left pupil and pinpoint right pupil in the emergency room on initial evaluation. The CT Images revealed a large left hemispheric acute subdural hematoma with approximate 16 mm midline shift, significant effacement of the left ventricle and cisterns. Patient was taken emergently to the operating room from the CT scanning suite. SUBJ 01/28/17: s/p Left decompressive frontotemporoparietal craniotomy for evacuation of acute subdural hematoma. Left frontal ventriculostomy catheter placement, and Left frontal twist drill for intracranial pressure monitor placement. ICP well controlled. Small to moderate line associated pneumothorax associated with central line placement. Started on Levophed to maintain MAP, CPP SUBJ 01/29: CT scan yesterday shows interval excellent evacuation of the subdural hemorrhage with improved midline shift from 17 mm to 4 mm. Neuro exam improving. Patient shakes her head to opened eyes couple times during night. Localizes to pain. ICP well controlled. Chest x-ray shows no residual pneumothorax Objective Vital Signs Date Time Temp Pulse Resp B/P Pulse Ox O2 Delivery O2 Flow Rate FiO2 01/29/17 08:19 100 40 01/29/17 08:00 97 01/29/17 07:00 Mechanical Ventilator 01/29/17 04:00 99.3 14 139/73 Intake and Output 01/28/17 01/28/17 01/29/17 08:00 16:00 00:00 Intake Total 1324 ml 2238 ml 794 ml Output Total 732 ml 595 ml 554 ml Balance 592 ml 1643 ml 240 ml Result Diagram: 01/29/17 0545 01/29/17 0545 Other Results Laboratory Tests Test 01/29/17 04:38 Blood Gas Puncture Site ART LINE Blood Gas Patient Temperature 98.6 Blood Gas HCO3 22 mmol/L (22-26) Blood Gas Base Excess -2.9 mmol/L (-2-2) Blood Gas Oxygen Saturation 98 % (90-100) Arterial Blood pH 7.37 (7.380-7.420) Arterial Blood Partial 39 mmHg (38-42) Pressure CO2 Arterial Blood Partial 181 mmHg Pressure O2 (61-120) Arterial Blood Oxygen Content 12.9 Vol % (12.0-20.0) Arterial Blood 1.0 % (0-4) Carboxyhemoglobin Arterial Blood Methemoglobin 1.0 % (0-2) Blood Gas Hemoglobin 9.1 G/DL (12.0-16.0) Oxygen Delivery Device VENTILATOR Blood Gas Ventilator Setting AC 14/500/5PEEP Blood Gas Inspired Oxygen 40 % Imaging Last 24 hours Impressions Thoracic Spine CT 01/27/171699 Signed Impressions: Service Date/Time: Friday, January 27, 2017 17:20 - CONCLUSION: 1. No fracture or subluxation. 2. Minimal subcutaneous emphysema seen within the upper neck likely related to patient's temporal bone fracture. Eb Guerin MD Pelvis X-Ray 01/27/171699 Signed Impressions: Service Date/Time: Friday, January 27, 2017 16:54 - CONCLUSION: 1. Left pubic rami fractures. Otoniel Crain MD Lumbar Spine CT 01/27/171699 Signed Impressions: Service Date/Time: Friday, January 27, 2017 17:20 - CONCLUSION: 1. No fracture or subluxation of the lumbar spine. 2. There are fractures of the right sacrum discussed in detail on CT the abdomen/pelvis. Eb Guerin MD Head CT 01/27/171699 Signed Impressions: Service Date/Time: Friday, January 27, 2017 17:20 - CONCLUSION: 1. Large acute subdural hematoma along the left frontal parietal and temporal lobes measuring 20 mm in greatest width with possible additional epidural component more superiorly. There is approximately 17 mm of subfalcine herniation to the right as well as diffuse effacement of the left cerebral sulci. 2. Acute right temporal bone fracture. 3. Fluid levels within the right maxillary sinus and left sphenoid sinus. Juan Carlos Jc MD Chest X-Ray 01/27/171699 Signed Impressions: Service Date/Time: Friday, January 27, 2017 16:54 - CONCLUSION: 1. Acute fracture involving the right scapula. 2. Endotracheal tube in good position 3 cm above the dima. Juan Carlos Jc MD Chest CT 01/27/17 1700 Signed Impressions: Service Date/Time: Friday, January 27, 2017 17:25 - CONCLUSION: 1. Comminuted fracture involving the right scapula. 2. Minimal posterior atelectatic changes bilaterally. Juan Carlos Jc MD Cervical Spine CT 01/27/17 1700 Signed Impressions: Service Date/Time: Friday, January 27, 2017 17:24 - CONCLUSION: 1. No acute fracture or prevertebral soft tissue swelling. 2. Straightening of the normal cervical lordosis. 3. Cervical spondylosis from C3 through C6. 4. Mild bilateral foraminal narrowing at C3-4, C4-5 and C5-6. Juan Carlos Jc MD Abdomen/Pelvis CT 01/27/17 1700 Signed Impressions: Service Date/Time: Friday, January 27, 2017 17:25 - CONCLUSION: 1. Acute fractures along the right sacrum as well as the left superior and inferior pubic rami. 2. No intra-abdominal trauma identified. Juan Carlos Jc MD Radius/Ulna X-Ray 01/27/17 0000 Signed Impressions: Service Date/Time: Friday, January 27, 2017 16:54 - CONCLUSION: Soft tissue swelling involving the right mid forearm without underlying radial or ulnar fracture. Juan Carlos Jc MD Chest X-Ray 01/27/17 0000 Signed Impressions: Service Date/Time: Friday, January 27, 2017 21:57 - CONCLUSION: No acute disease. Adequate placement of right jugular central line. Questionable tiny right apical pneumothorax. Followup studies recommended. Eb Guerin MD Objective Remarks GENERAL: Well-nourished, well-developed patient. SKIN: Warm and dry. HEAD: Status post severe head injury, EVD in place, 253 ml in 24 hours EYES: No scleral icterus. No injection or drainage. Pupils 3 mm briskly reactive. NECK: Supple, trachea midline. No JVD or lymphadenopathy. CARDIOVASCULAR: Regular rate and rhythm without murmurs, gallops, or rubs. RESPIRATORY: Breath sounds equal bilaterally. No accessory muscle use. GASTROINTESTINAL: Abdomen soft, non-tender, nondistended. MUSCULOSKELETAL: No cyanosis, or edema. BACK: Nontender without obvious deformity. No CVA tenderness. EXTREMITIES: No clubbing cyanosis or edema NEURO: Pupils 3 mm briskly reactive. Moves extremities spontaneously, and localizes to pain. Shakes head to oral care. Not following commands Urinary Catheter: Yes Assessment to: Continue Vascular Central Line Catheter: Yes Assessment to: Continue A/P Assessment and Plan NEURO: Severe acute left hemisphere subdural hematoma with midline shift and mass effect Right temporal bone fracture-nondisplaced - Status post emergent evacuation, EVD and ICP monitor placement by Dr. Bahena - CT head 01/28-excellent evacuation of the subdural hemorrhage with significant improvement in midline shift - Monitor ICP-well controlled overnight. EVD 253 ml in 24 hour - Hypertonic saline, keep Na 150-155, Mannitol if needed - Dr. Bahena. Follow up CT head per him - Marzena for sz prophylaxis - Encouraging neuro exam, steadily improving RESP: Acute Respiratory failure Iatrogenic pneumothorax - Intubated for airway protection - No weaning until neurologically improved - Continue mechanical ventilation - End-tidal CO2 - Placed R right pigtail chest tube, with resolution of pneumothorax CVS: Hypotension, now hypertensive - Levophed to keep CPP 60-70- off Levophed now hypertensive - Cardene infusion and when necessary labetalol and hydralazine to keep systolic blood pressure less than 140-150 - NS IV fluids - Flow trac monitoring GI: - NPO IV Protonix - Start tube feeds if ok with trauma : - Monitor UO. Monitor BUN/creatinine ID: - Patient has right temporal bone fracture with fluid in mastoid air cells - Start empiric Unasyn Endo: - Electrolyte replacement per protocol MSK: Scapular, pelvic, and sacral fractures - No indication for surgery - Conservative and supportive care DVT GI prophylaxis - Teds SCDs - Hold pharmacological DVT prophylaxis 48 hours - Reevaluate after 48-72 hours and discuss with neurosurgeon - Protonix Critical Care: The total critical care time was 35 minutes. Time to perform other separately billable procedures was not included in the critical care time. Oscar Norman MD Jan 29, 2017 10:19
[2017-01-29] MEDS: LACTULOSE SYRUP 20 GM/30 ML CUP PO SCH (10:44)
[2017-01-29] MEDS: AMPICILLIN-SULBACTAM INJ 3 GM in SODIUM CHLORIDE 0.9% INJ 100 ML IV SCH ×3 (10:44→23:00)
--- NOTE | 2017-01-29 12:24 | HHI.NSPN ---
(Marques Moreno) History Chief Complaint: Unable to obtain due to clinical condition. (Marques Moreno) Interval History 01/27: Patient is a middle-aged female who according to her family fell through a garage ceiling landing on the floor one-story down. Positive loss of consciousness. Patient was reportedly unresponsive immediately after the event. No seizure activity reported. She was GCS 3-4 at the scene and brought to [facility] emergency room as a trauma alert per EMS. She was intubated in the emergency room. She was noted to have a fixed dilated left pupil and pinpoint right pupil in the emergency room on initial evaluation. The undersigned reviewed the patient's CT scan images shortly after completion while the patient was in the CT scanning suite. Images revealed a large left hemispheric acute subdural hematoma with approximate 16 mm midline shift, significant effacement of the left ventricle and cisterns. Patient was taken emergently to the operating room from the CT scanning suite. 01/28: The patient is intubated and mechanically ventilated with propofol & fentanyl for sedation. She is on norepinephrine for blood pressure support which Nursing states she is titrating down. Nursing also reported that the patient did squeeze with her hands this morning. The patient was transfused this morning for a haemoglobin of 7.4. 01/29: The patient remains intubated and mechanically ventilated. The propofol & fentanyl drips have been off since 929 this morning. She is no longer on any vasopressors. Saline 3% is infusing. Nursing states she is withdrawing but has not had any eye opening. ICP has been running 4 to 5 on the ventriculostomy per Nursing and that the bolt pressure is not being used since it was reportedly not in proper position. Nursing also reports excessive drainage from the ventriculostomy. (Marques Moreno) System Review Comments Unable to obtain due to clinical condition. (Marques Moreno) Exam Results Vital Signs Date Time Temp Pulse Resp B/P Pulse Ox O2 Delivery O2 Flow Rate FiO2 01/29/17 10:00 94 01/29/17 08:19 100 40 01/29/17 08:00 99.1 14 131/62 01/29/17 07:00 Mechanical Ventilator Intake and Output 01/28/17 01/28/17 01/29/17 08:00 16:00 00:00 Intake Total 1324 ml 2238 ml 794 ml Output Total 732 ml 595 ml 554 ml Balance 592 ml 1643 ml 240 ml (Marques Moreno) Physical Examination GENERAL: The patient is intubated and mechanically ventilated w/o any sedation. SKIN: Skin warm & dry. Several abrasions noted to the left foot w/o any erythema , streaking or active drainage noted. Ecchymosis to right forearm & to left side of face. No rashes or other lesions noted. HEENT: Intact surgical dressing from craniotomy w/pressure monitoring bolt & ventriculostomy, THA drain to bulb suction w/serous drainage. PERRLA. Orally intubated. OGT. NECK: No JVD, trachea midline, right IJ central venous catheter. CARDIOVASCULAR: S1S2 w/RRR w/o M/G/R, radial & pedal pulses 2+ bilaterally, cap refill < 2 sec, no pedal edema. Monitor is sinus rhythm w/o any ectopy noted. RESPIRATORY: CTAB w/o W/R/R, equal excursion, nonlaboured, intubated and mechanically ventilated. GASTROINTESTINAL: Abdomen soft, positive bowel sounds, OGT w/enteral feeds. MUSCULOSKELETAL: Scattered abrasions. Ecchymosis & swelling right forearm & hand. No evident deformities or clubbing. NEUROLOGICAL: Moves BLE to stimuli, GCS 6T (E1 V1T M4). No response to voice or command. No eye opening spontaneously or to voice or to deep pain. PERRL 2-3 mm. Withdrew RLE>LLE to noxious stimuli, none to BUE but did spontaneously move the LUE, questionable if subsequent hand squeeze was to command or reflex. When commands were given the patient was noted to shake her head from [id number]. Unable to assess sensation. 3% saline infusing at 30 mL. Ventriculostomy w/99 mL out from 2200 to 0600 and 80 mL from 0600 to when seen at 1210. (Marques Moreno) Lab, Micro, Other Results Allergies Coded Allergies Type Severity Reaction Last Updated Verified UNOBTAINABLE 01/27/17 No Recent Impressions Chest X-Ray 01/29/17 0600 Signed Impressions: Service Date/Time: Sunday, January 29, 2017 05:13 - CONCLUSION: Lines and tubes remain in place. No evidence of pneumothorax. Kenny Velarde MD Head CT 01/28/17 1319 Signed Impressions: Service Date/Time: January 15:14 - CONCLUSION: 1. Post surgical changes with left parietal craniectomy and evacuation of most of the previously seen large left subdural hematoma. A small subdural persists inferiorly measuring approximately 6 mm in depth. 2. Marked improvement in the previously seen left to right subfalcine shift previously measuring 17 mm and now measuring 4 mm. 3. Persistent subdural component tracking along the left tentorium. 4. Right temporal bone fracture with fluid in the right mastoid air cells. Hyperdense blood in the paranasal sinuses. Isaak Uriarte MD Chest X-Ray 01/28/17 0600 Signed Impressions: Service Date/Time: January 05:49 - CONCLUSION: 1. There is a small right pneumothorax, increased in size from the prior study. 2. Remainder of the examination demonstrates no acute finding. Emerson Mariee MD Chest X-Ray 01/28/17 0000 Signed Impressions: Service Date/Time: January 13:46 - CONCLUSION: 1. Stable right-sided chest tube with interval resolution of right-sided pneumothorax. Otoniel Crain MD Chest X-Ray 01/28/17 0000 Signed Impressions: Service Date/Time: January 09:30 - CONCLUSION: Interval placement of a right apical chest tube with mild interval improvement of right apical pneumothorax now measuring 1.8 cm. Otoniel Crain MD Chest X-Ray 01/28/17 0000 Signed Impressions: Service Date/Time: January 08:47 - CONCLUSION: Minimal interval enlargement of right apical pneumothorax, now measuring approximately 2.6 cm. Otoniel Crain MD Thoracic Spine CT 01/27/17 1700 Signed Impressions: Service Date/Time: Friday, January 27, 2017 17:20 - CONCLUSION: 1. No fracture or subluxation. 2. Minimal subcutaneous emphysema seen within the upper neck likely related to patient's temporal bone fracture. Eb Guerin MD Pelvis X-Ray 01/27/171699 Signed Impressions: Service Date/Time: Friday, January 27, 2017 16:54 - CONCLUSION: 1. Left pubic rami fractures. Otoniel Crain MD Lumbar Spine CT 01/27/171699 Signed Impressions: Service Date/Time: Friday, January 27, 2017 17:20 - CONCLUSION: 1. No fracture or subluxation of the lumbar spine. 2. There are fractures of the right sacrum discussed in detail on CT the abdomen/pelvis. Eb Guerin MD Head CT 01/27/171699 Signed Impressions: Service Date/Time: Friday, January 27, 2017 17:20 - CONCLUSION: 1. Large acute subdural hematoma along the left frontal parietal and temporal lobes measuring 20 mm in greatest width with possible additional epidural component more superiorly. There is approximately 17 mm of subfalcine herniation to the right as well as diffuse effacement of the left cerebral sulci. 2. Acute right temporal bone fracture. 3. Fluid levels within the right maxillary sinus and left sphenoid sinus. Juan Carlos Jc MD Chest X-Ray 01/27/171699 Signed Impressions: Service Date/Time: Friday, January 27, 2017 16:54 - CONCLUSION: 1. Acute fracture involving the right scapula. 2. Endotracheal tube in good position 3 cm above the dima. Juan Carlos Jc MD Chest CT 01/27/171699 Signed Impressions: Service Date/Time: Friday, January 27, 2017 17:25 - CONCLUSION: 1. Comminuted fracture involving the right scapula. 2. Minimal posterior atelectatic changes bilaterally. Juan Carlos Jc MD Cervical Spine CT 01/27/171699 Signed Impressions: Service Date/Time: Friday, January 27, 2017 17:24 - CONCLUSION: 1. No acute fracture or prevertebral soft tissue swelling. 2. Straightening of the normal cervical lordosis. 3. Cervical spondylosis from C3 through C6. 4. Mild bilateral foraminal narrowing at C3-4, C4-5 and C5-6. Juan Carlos Jc MD Abdomen/Pelvis CT 01/27/17 1700 Signed Impressions: Service Date/Time: Friday, January 27, 2017 17:25 - CONCLUSION: 1. Acute fractures along the right sacrum as well as the left superior and inferior pubic rami. 2. No intra-abdominal trauma identified. Juan Carlos Jc MD Radius/Ulna X-Ray 01/27/17 0000 Signed Impressions: Service Date/Time: Friday, January 27, 2017 16:54 - CONCLUSION: Soft tissue swelling involving the right mid forearm without underlying radial or ulnar fracture. Juan Carlos Jc MD Chest X-Ray 01/27/17 0000 Signed Impressions: Service Date/Time: Friday, January 27, 2017 21:57 - CONCLUSION: No acute disease. Adequate placement of right jugular central line. Questionable tiny right apical pneumothorax. Followup studies recommended. Eb Guerin MD //// 06:00 18:00 06:00 18:00 06:00 18:00 Intake Total 3349 ml 2238 ml 1470 ml Output Total 1902 ml 595 ml 1033 ml Balance 1447 ml 1643 ml 437 ml Intake IV Total 3349 ml 1738 ml 1470 ml Packed Cells 500 ml Output Urine Total 1725 ml 525 ml 775 ml Gastric Drainage Total 20 ml 0 ml 30 ml Chest Tube Drainage Total 0 ml 0 ml Drainage Total 157 ml 70 ml 228 ml # Bowel Movements 0 0 0 Laboratory Tests Test 01/27/17 01/27/17 01/28/17 01/28/17 17:00 23:00 04:56 05:10 White Blood Count 14.3 TH/MM3 11.1 TH/MM3 Red Blood Count 3.95 MIL/MM3 2.31 MIL/MM3 Hemoglobin 12.7 GM/DL 7.4 GM/DL Bedside Hemoglobin 12.2 G/DL Hematocrit 37.4 % 21.9 % Bedside Hematocrit 36.0 % Mean Corpuscular Volume 94.6 FL 94.8 FL Mean Corpuscular Hemoglobin 32.3 PG 32.2 PG Mean Corpuscular Hemoglobin 34.1 % 34.0 % Concent Red Cell Distribution Width 11.9 % 12.0 % Platelet Count 300 TH/MM3 135 TH/MM3 Mean Platelet Volume 8.5 FL 8.0 FL Neutrophils (%) (Auto) 51.3 % 88.4 % Lymphocytes (%) (Auto) 40.5 % 5.5 % Monocytes (%) (Auto) 6.4 % 6.0 % Eosinophils (%) (Auto) 1.2 % 0.0 % Basophils (%) (Auto) 0.6 % 0.1 % Neutrophils # (Auto) 7.4 TH/MM3 9.8 TH/MM3 Lymphocytes # (Auto) 5.8 TH/MM3 0.6 TH/MM3 Monocytes # (Auto) 0.9 TH/MM3 0.7 TH/MM3 Eosinophils # (Auto) 0.2 TH/MM3 0.0 TH/MM3 Basophils # (Auto) 0.1 TH/MM3 0.0 TH/MM3 CBC Comment AUTO DIFF DIFF FINAL Differential Total Cells 100 Counted Neutrophils % (Manual) 56 % Lymphocytes % 37 % Monocytes % 3 % Eosinophils % 2 % Neutrophils # (Manual) 8.3 TH/MM3 Myelocytes 2 % Differential Comment FINAL DIFF MANUAL Atypical Lymphocytes % Platelet Estimate NORMAL Platelet Morphology Comment NORMAL Red Cell Morphology Comment NORMAL Prothrombin Time 10.7 SEC Prothromb Time International 1.0 RATIO Ratio Activated Partial 23.8 SEC Thromboplast Time Bedside Sodium 142 MMOL/L Bedside Potassium 3.2 MMOL/L Bedside Chloride 104 MMOL/L Bedside Blood Urea Nitrogen 17 MG/DL Bedside Creatinine 1.0 MG/DL Bedside Glucose 123 MG/DL Blood Type A POSITIVE Antibody Screen NEGATIVE Nasal Screen MRSA (PCR) NEGATIVE Sodium Level 146 MEQ/L 148 MEQ/L Potassium Level 3.2 MEQ/L 4.1 MEQ/L Chloride Level 117 MEQ/L 119 MEQ/L Carbon Dioxide Level 21.4 MEQ/L 19.3 MEQ/L Anion Gap 8 MEQ/L 10 MEQ/L Blood Urea Nitrogen 12 MG/DL 11 MG/DL Creatinine 0.70 MG/DL 0.80 MG/DL Estimat Glomerular Filtration 72 ML/MIN 62 ML/MIN Rate Random Glucose 167 MG/DL 166 MG/DL Calcium Level 5.6 MG/DL 6.5 MG/DL Protein Corrected Calcium 7.2 MG/DL 7.8 MG/DL Total Protein 3.6 GM/DL 4.5 GM/DL Staphylococcus aureus NEGATIVE (PCR)(LAB) Blood Gas Puncture Site ART LINE Blood Gas Patient Temperature 98.6 Blood Gas HCO3 20 mmol/L Blood Gas Base Excess -4.3 mmol/L Blood Gas Oxygen Saturation 98 % Arterial Blood pH 7.38 Arterial Blood Partial 35 mmHg Pressure CO2 Arterial Blood Partial 188 mmHg Pressure O2 Arterial Blood Oxygen Content 10.5 Vol % Arterial Blood 0.8 % Carboxyhemoglobin Arterial Blood Methemoglobin 1.3 % Blood Gas Hemoglobin 7.3 G/DL Oxygen Delivery Device VENTILATOR Blood Gas Ventilator Setting AC/14/500/PEEP 5 Blood Gas Inspired Oxygen 40 % Phosphorus Level 2.1 MG/DL Magnesium Level 1.5 MG/DL Total Bilirubin 0.6 MG/DL Aspartate Amino Transf 70 U/L (AST/SGOT) Alanine Aminotransferase 55 U/L (ALT/SGPT) Alkaline Phosphatase 68 U/L Albumin 2.3 GM/DL Test 01/28/17 01/28/17 01/28/17 01/29/17 07:49 11:56 18:00 00:05 Blood Type A POSITIVE Crossmatch Leukocyte-Reduced Red Blood Cells Blood Bank Comment Hemoglobin 10.1 GM/DL Hematocrit 29.6 % Sodium Level 150 MEQ/L 152 MEQ/L 153 MEQ/L Test 01/29/17 01/29/17 04:38 05:45 Blood Gas Puncture Site ART LINE Blood Gas Patient Temperature 98.6 Blood Gas HCO3 22 mmol/L Blood Gas Base Excess -2.9 mmol/L Blood Gas Oxygen Saturation 98 % Arterial Blood pH 7.37 Arterial Blood Partial 39 mmHg Pressure CO2 Arterial Blood Partial 181 mmHg Pressure O2 Arterial Blood Oxygen Content 12.9 Vol % Arterial Blood 1.0 % Carboxyhemoglobin Arterial Blood Methemoglobin 1.0 % Blood Gas Hemoglobin 9.1 G/DL Oxygen Delivery Device [place] [address]/5PEEP Blood Gas Inspired Oxygen 40 % White Blood Count 12.2 TH/MM3 Red Blood Count 3.13 MIL/MM3 Hemoglobin 9.5 GM/DL Hematocrit 27.6 % Mean Corpuscular Volume 88.0 FL Mean Corpuscular Hemoglobin 30.3 PG Mean Corpuscular Hemoglobin 34.4 % Concent Red Cell Distribution Width 17.8 % Platelet Count 121 TH/MM3 Mean Platelet Volume 7.9 FL Neutrophils (%) (Auto) 79.3 % Lymphocytes (%) (Auto) 10.9 % Monocytes (%) (Auto) 9.7 % Eosinophils (%) (Auto) 0.0 % Basophils (%) (Auto) 0.1 % Neutrophils # (Auto) 9.7 TH/MM3 Lymphocytes # (Auto) 1.3 TH/MM3 Monocytes # (Auto) 1.2 TH/MM3 Eosinophils # (Auto) 0.0 TH/MM3 Basophils # (Auto) 0.0 TH/MM3 CBC Comment DIFF FINAL Differential Comment Sodium Level 153 MEQ/L Potassium Level 3.6 MEQ/L Chloride Level 123 MEQ/L Carbon Dioxide Level 22.9 MEQ/L Anion Gap 7 MEQ/L Blood Urea Nitrogen 11 MG/DL Creatinine 0.53 MG/DL Estimat Glomerular Filtration 123 ML/MIN Rate Random Glucose 123 MG/DL Calcium Level 8.0 MG/DL Phosphorus Level 1.4 MG/DL Magnesium Level 2.1 MG/DL Total Bilirubin 1.1 MG/DL Aspartate Amino Transf 46 U/L (AST/SGOT) Alanine Aminotransferase 39 U/L (ALT/SGPT) Alkaline Phosphatase 64 U/L Total Protein 4.8 GM/DL Albumin 2.2 GM/DL Vital Signs Date Time Temp Pulse Resp B/P Pulse Ox O2 Delivery O2 Flow Rate FiO2 01/29/17 10:00 94 01/29/17 08:19 100 40 01/29/17 08:00 40 01/29/17 08:00 97 01/29/17 08:00 99.1 100 14 131/62 100 01/29/17 07:00 100 Mechanical Ventilator 40 01/29/17 06:00 98 01/29/17 04:07 100 40 01/29/17 04:00 40 01/29/17 04:00 103 01/29/17 04:00 99.3 103 14 139/73 100 01/29/17 02:00 94 01/29/17 01:25 100 40 01/29/17 00:00 98.6 84 14 132/68 100 01/29/17 00:00 84 01/29/17 00:00 40 01/28/17 22:24 100 40 01/28/17 22:00 88 01/28/17 20:00 40 01/28/17 20:00 92 01/28/17 20:00 99.2 92 14 134/72 100 01/28/17 19:54 100 40 01/28/17 19:00 100 Mechanical Ventilator 40 01/28/17 18:00 88 01/28/17 16:59 100 40 01/28/17 16:00 40 01/28/17 16:00 74 01/28/17 16:00 99.5 74 14 120/68 100 01/28/17 15:05 100 40 01/28/17 14:00 80 01/28/17 12:00 99.0 74 14 110/58 100 01/28/17 12:00 40 01/28/17 12:00 74 01/28/17 11:51 100 40 01/28/17 10:00 78 01/28/17 08:56 100 40 01/28/17 08:35 99.1 86 15 96/74 100 01/28/17 08:00 40 01/28/17 08:00 99.5 86 15 106/58 100 01/28/17 08:00 79 01/28/17 07:00 100 Mechanical Ventilator 40 01/28/17 06:00 96 01/28/17 04:03 100 40 01/28/17 04:00 92 01/28/17 04:00 40 01/28/17 04:00 98.7 92 14 98/58 100 01/28/17 02:00 88 01/28/17 00:45 100 40 01/28/17 00:00 98.5 86 14 94/56 100 01/28/17 00:00 86 01/28/17 00:00 40 01/27/17 22:00 106 01/27/17 21:00 98.2 87 14 120/74 100 01/27/17 21:00 100 Mechanical Ventilator 40 01/27/17 20:46 100 40 01/27/17 18:08 100 100 (Marques Moreno) Medical Decision Making Impression and Plan Impression: 1. Severe acute left hemisphere subdural hematoma with severe midline shift and mass effect. 2. Right temporal bone fracture-nondisplaced Leukocytosis, interval increase (11.1=>12.2) Anaemia, essentially stable after transfusion (7.4=>10.1=>9.5) Thrombocytopenia, interval decrease (135=>121) Sodium 154 Hypokalemia, resolved Improved eGFR (62=>123) Hypophosphatemia, interval worsening (2.1=>1.4) THA drain w/45 mL Ventriculostomy w/253 mL Patient with improved neurological response, still critical. POD #2 () s/p: 1. Left decompressive frontotemporoparietal craniotomy for evacuation of acute subdural hematoma. 2. Left frontal ventriculostomy catheter placement 3. Left frontal twist drill for intracranial pressure monitor placement Plan: Primary management per Irrigation Laborer/Trauma. Frequent neuro checks. Stat CT brain for worsening neuro status. Continue hypertonic saline. Continuing ventilatory support and full sedation. Seizure prophylaxis. Ulcer prophylaxis. Non chemical DVT prophylaxis. (Marques Moreno) Attending Statement I have personally seen and examined the patient on the date of this note. Pertinent documentation and study results have been reviewed by the undersigned. I have personally developed the treatment plan and performed medical decision making. Agree with findings, exam, and treatment plan as noted above. On my examination today, scalp flap is soft and pulsatile. ICPs less than 10. Pupils 2 mm nonreactive With sedation vacation today, the patient had some spontaneous eye opening, flexing and reaching with upper extremities but not following commands. Continuing external ventricular drain. Continue hypertonic saline to maintain sodium 145-154 range. Continuing AED for seizure prophylaxis. Plan follow-up CT scan early next week. (Nic Bahena MD) Marques Moreno Jan 29, 2017 12:24 Nic Bahena MD Jan 29, 2017 22:26
--- NOTE | 2017-01-29 12:27 | HHI.PR ---
Neuropsych Emotional Emotional: UnabletoAssess: Emotional, Anxious/Fearful, Depressed/Sad, Hostile/ Resentful, Irritable/Angry/Frustrate, Labile, Constricted/Blunted Behavior Behavior: Unable to Asses: Behavior, Coping/Acceptance, Cooperative w/ Treatment, Motivation, Frustration Tolerance/[place], Impulsive/Agitated, Suicidal/ Homicidal Risk Cognitive Cognitive: Unable to Asses: Cognitive, Attention/Concentration, Confused/ Orientation, Insight/Awareness, Judgement/Problem-Solving, Memory Psychosocial Psychosocial: Unable to Asses: Psychosocial, Family/Other Adjustment, Realistic Expectation, Self-Esteem/Confidence Progress Notes/Response to Tx Contents of Sessions: Adjustment, Level of Consciousness Time with Patient: 15 minutes Premorbid psychological status Premorbid Cognitive, Emotional and Behavioral Status: Deferred. No family present to ascertain premorbid abilities. Behavioral Reactions of Patient and Family/Support System: Deferred. The patients family is likley experiencing ongoing issues of adjustment given the nature of the injury, and this aspect of recovery will require ongoing monitoring. Emotional/Behavioral Status of Patient and Family/Support System: Deferred. Pertinent issues, if appropriate to this patients clinical care, are described in detail above. Maximizing acute care outcome It is recommended that the patient be monitored for emergent behavioral impulsivity as the medical condition evolves. This patients neuropathological challenges may limit their rehabilitation potential going forward, and these challenges will require specialized therapeutic skills to maximize outcome. Additionally, the patients family is experiencing ongoing issues of adjustment given the traumatic nature of the injury, and they may benefit from ongoing psychological assistance. Anticipated Problems Ongoing areas of concern will include behavioral impulsivity, lack of insight and judgment, which is expected to improve with time and treatment. Presently , the patient unresponsive, intubated and sedated. Treatment Plan This clinician will continue to follow with you throughout the course of this patients acute care treatment, and I will be available to meet with the patient s family/support system to facilitate their understanding and the ongoing care of their family member. The goals of neuropsychological intervention shall be both educational and supportive to the family/support system as is deemed clinically appropriate. [facility] Level: II:General response-total assist Impression This is a 46 year old woman s/p TBI 2T fall on 01/27/2017, with large left temporoparietal SDH, right basal skull fracture through petrous bone with extrusion of brain matter on the right, and is s/p DC/ventriculostomy placement. 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 This is day 2 post injury. The patient remains intubated and sedated, having undergone a left frontotemporal craniectomy with SDH evacuation and ventriculostomy placement. Her prognosis is guarded and she is expected to have severe and permanent neuropsychological deficits from this injury. She reportedly localizes to pain, and her ICPs have been around 5. She is considered a [place]o II. I will continue to follow. Luis Murphy PhD Jan 29, 2017 12:27 pm
[2017-01-29] MEDS: SODIUM CHLORID 0.9% IV SCH (13:02)
[2017-01-29] MEDS: SODIUM CHLORIDE IV SCH (13:02)
--- NOTE | 2017-01-29 16:28 | HHI.CCPN ---
Subjective Brief History severe traumatic brain injury. [place] coma scale 3. Large left temporoparietal subdural hematoma, right basal skull fracture through the petrous bone with extrusion of some brain matter on the right, fracture of the right scapula, left superior inferior ramus pubic fracture with minimal displacement and a right sacral fracture. Patient will be taken immediately to the operating room. Patient underwent a left frontotemporal craniectomy with evacuation of subdural hematoma and placement of ventriculostomy Orthopedic consult was obtained and no further operative management will be instituted 24 Hour Review/Hospital Course Patient has been in the ICU overnight intubated and ventilated 01/29/17 Neurologic status is unchanged ICP remains low Pupils are equal about 2 mm and somewhat reactive Patient remains on propofol fentanyl Hypertonic 3% saline at 30 cc/h Keppra No clinical suspicion of seizures Objective Vital Signs Date Time Temp Pulse Resp B/P Pulse Ox O2 Delivery O2 Flow Rate FiO2 01/29/17 16:00 40 01/29/17 16:00 99.2 119 17 126/55 100 01/29/17 07:00 Mechanical Ventilator Intake and Output 01/28/17 01/28/17 01/29/17 08:00 16:00 00:00 Intake Total 1324 ml 2238 ml 794 ml Output Total 732 ml 595 ml 554 ml Balance 592 ml 1643 ml 240 ml Result Diagram: 01/29/17 0545 01/29/17 1200 Other Results Laboratory Tests Test 01/29/17 04:38 Blood Gas Puncture Site ART LINE Blood Gas Patient Temperature 98.6 Blood Gas HCO3 22 mmol/L (22-26) Blood Gas Base Excess -2.9 mmol/L (-2-2) Blood Gas Oxygen Saturation 98 % (90-100) Arterial Blood pH 7.37 (7.380-7.420) Arterial Blood Partial 39 mmHg (38-42) Pressure CO2 Arterial Blood Partial 181 mmHg Pressure O2 (61-120) Arterial Blood Oxygen Content 12.9 Vol % (12.0-20.0) Arterial Blood 1.0 % (0-4) Carboxyhemoglobin Arterial Blood Methemoglobin 1.0 % (0-2) Blood Gas Hemoglobin 9.1 G/DL (12.0-16.0) Oxygen Delivery Device VENTILATOR Blood Gas Ventilator Setting AC 14/500/5PEEP Blood Gas Inspired Oxygen 40 % Imaging Last 24 hours Impressions Chest X-Ray 01/29/17 0600 Signed Impressions: Service Date/Time: Sunday, January 29, 2017 05:13 - CONCLUSION: Lines and tubes remain in place. No evidence of pneumothorax. Kenny Velarde MD Exam RIVET BUCKER Neurologic status is unchanged ICP remains low Pupils are equal about 2 mm and somewhat reactive Patient remains on propofol fentanyl Hypertonic 3% saline at 30 cc/h Keppra No clinical suspicion of seizures Hemodynamic/Cardiac Hemodynamically patient is stable with a tiny dose of Levophed to account for the mean arterial pressure and hereby the central perfusion pressure Pulmonary/Respiratory Bilateral breath sounds ventilatory dependent Abdomen/GI Nutrition Abdomen soft enteral feeds started Renal/I&O Good urine output and preserved renal function Assessment and Plan Attestation Patient with severe brain injury due to the fall We'll wean as tolerated In face of low ICPs we'll remove propofol and fentanyl Prognosis is a Olegario yet every effort should be made to striving for maximum functional recovery Depending on the recovery neurologic function patient may need tracheostomy next week Critical care 38 minutes Noemy Philip MD Jan 29, 2017 16:28
--- NOTE | 2017-01-29 17:12 | PD.CONS ---
HPI Service Rehabilitation Medicine Consult Requested By [facility] trauma service Reason for Consult Comprehensive rehabilitation evaluation. Primary Care Physician Unknown History of Present Illness Gregoria Terrazas is a 46-year-old female with an [place] [facility] after she reportedly fell through the roof of her attic. GCS 3. She required intubation. Head CT showed large acute subdural hematoma left frontal temporal parietal area 20 mm with possible epidural components superiorly; 7 mm of subfalcine herniation to the right with diffuse effacement of the left cerebral sulci and right temporal fracture. On 01/27/17 she underwent left decompressive frontotemporal parietal craniotomy with evacuation of subdural hematoma with placement of ICP monitor and ventriculostomy. Associated injuries include: -Left superior and inferior pubic rami fracture -Right sacral fracture -Right scapular fracture Review of Systems ROS Limitations: Clinical Condition, Intubated, Altered Mental Status Past Family Social History Allergies: Coded Allergies: No Known Allergies (Unverified , 01/31/17) per Past Medical History Unable to obtain Past Surgical History Unable to obtain Current Medications Current Medications Medications (Trade) Dose Ordered Sig/Alexandro Route Start Time Stop Time Status Last Admin (NS 1000 ml Inj) 1,000 ml @ 50 mls/hr Q20H IV 01/27/17 18:00 01/29/17 05:58 (NS Flush) 2 ml UNSCH PRN IV FLUSH 01/27/17 17:30 (NS Flush) 2 ml BID IV FLUSH 01/27/17 21:00 01/29/17 08:48 (Zofran Inj) 4 mg Q6H PRN IV 01/27/17 17:30 (Protonix Inj) 40 mg Q24H IV 01/27/17 18:00 01/28/17 17:30 Naloxone HCl 0.4 mg 0.4 mg UNSCH PRN IV 01/27/17 17:30 Levetriacetam 500 mg/Sodium Chloride 105 ml @ 420 mls/hr Q12HR IV 01/27/17 21:00 01/29/17 08:48 Fentanyl Citrate 250 ml @ 0 mls/hr TITRATE IV 01/27/17 21:15 01/28/17 20:56 Propofol 100 ml @ 0 mls/hr TITRATE IV 01/27/17 21:15 01/29/17 05:58 (Sodium Chloride 23.4% Inj/NS 500 ml Inj) 551 ml @ 30 mls/hr Q18H IV 01/28/17 01:00 01/29/17 13:02 Miscellaneous Information D/C ICU ELECTROLYTE ORDERS... UNSCH PRN .XX 01/28/17 01:00 Miscellaneous Information ICU - CALL ORDERING PHYSIC... UNS PRN .XX 01/28/17 01:00 (KCl 40 Meq Premix Inj) 100 ml @ 25 mls/hr UNSCH PRN IV 01/28/17 01:00 01/28/17 04:11 Potassium Bicarb/ Potassium Chloride 50 meq 50 meq UNS PRN PO 01/28/17 01:00 Potassium Chloride 100 ml @ 50 mls/hr [facility] PRN IV 01/28/17 01:00 Magnesium Sulfate 4 gm/Sodium Chloride 108 ml @ 54 mls/hr [facility] IV 01/28/17 01:00 (Magnesium Sulfate Inj/NS Inj) 104 ml @ 52 mls/hr [facility] PRN IV 01/28/17 01:00 Magnesium Oxide 800 mg 800 mg [facility] PRN PO 01/28/17 01:00 (Sodium Phosphate Inj/NS 250 ml Inj) 260 ml @ 43.333 mls/ hr [facility] PRN IV 01/28/17 01:00 01/29/17 08:49 Potassium Phosphate 2000 mg 2,000 mg [facility] PRN PO 01/28/17 01:00 Potassium Phosphate 30 mmol/ Sodium Chloride 260 ml @ 43.333 mls/ hr [facility] PRN IV 01/28/17 01:00 (Levophed-Dextrose Drip) 250 ml @ 0 mls/hr TITRATE IV 01/28/17 07:00 Terbutaline Sulfate 1 mg 1 mg UNS PRN SQ 01/28/17 07:00 (Cardene Inj/NS 250 ml Inj) 260 ml @ 0 mls/hr TITRATE IV 01/29/17 10:15 (Trandate Inj) 20 mg Q4H PRN IV PUSH 01/29/17 10:15 Hydralazine HCl 20 mg 20 mg Q4H PRN IV PUSH 01/29/17 10:15 01/29/17 13:04 (Unasyn Inj/NS Inj) 100 ml @ 200 mls/hr Q6H IV 01/29/17 11:00 01/29/17 16:45 (Shannon-Colace) 1 tab BID PO 01/29/17 21:00 (Lactulose Liq) 30 ml DAILY PO 01/29/17 10:15 01/29/17 10:44 (Dulcolax Supp) 10 mg DAILY PRN RECTAL 01/29/17 10:15 (Peridex 0.12% Liq) 15 ml BID@08,20 MT 01/29/17 20:00 Family History Unable to obtain Social History Prior to admission patient lived in [place], [place]. Exam I&O / VS 01/28/17 01/28/17 01/29/17 14:59 22:59 06:59 Intake Total 2238 ml 794 ml 676 ml Output Total 595 ml 554 ml 479 ml Balance 1643 ml 240 ml 197 ml Intake IV Total 1738 ml 794 ml 676 ml Packed Cells 500 ml Output Urine Total 525 ml 400 ml 375 ml Gastric Drainage Total 0 ml 30 ml 0 ml Chest Tube Drainage Total 0 ml 0 ml 0 ml Drainage Total 70 ml 124 ml 104 ml # Bowel Movements 0 0 0 Vital Signs Date Time Temp Pulse Resp B/P Pulse Ox O2 Delivery O2 Flow Rate FiO2 01/29/17 16:00 40 01/29/17 16:00 99.2 119 17 126/55 100 01/29/17 16:00 119 01/29/17 14:00 114 01/29/17 12:09 100 40 01/29/17 12:00 40 01/29/17 12:00 99.2 89 14 140/70 100 01/29/17 12:00 89 01/29/17 10:00 94 01/29/17 08:19 100 40 01/29/17 08:00 40 01/29/17 08:00 97 01/29/17 08:00 99.1 100 14 131/62 100 01/29/17 07:00 100 Mechanical Ventilator 40 01/29/17 06:00 98 01/29/17 04:07 100 40 01/29/17 04:00 40 01/29/17 04:00 103 01/29/17 04:00 99.3 103 14 139/73 100 01/29/17 02:00 94 01/29/17 01:25 100 40 01/29/17 00:00 98.6 84 14 132/68 100 01/29/17 00:00 84 01/29/17 00:00 40 01/28/17 22:24 100 40 01/28/17 22:00 88 01/28/17 20:00 40 01/28/17 20:00 92 01/28/17 20:00 99.2 92 14 134/72 100 01/28/17 19:54 100 40 01/28/17 19:00 100 Mechanical Ventilator 40 01/28/17 18:00 88 General: Intubated, No acute distress, Other (Ventriculostomy in place; no bone flap in place left) Respiratory: Lungs CTA, Non-labored respirations, BS equal, Other (Right chest tube) Gastrointestinal: Positive Bowel Sounds, Non-Distended Cardiovascular: Normal rate, Regular Rhythm Musculoskeletal: ROM (within functional limits) Psychiatric: Other (Generalized response to sternal rub; not following to open eyes or focus to voice) Orientation: unable to asses Self, unable to asses Place, unable to asses Time , unable to asses Situation Neurologic: Pupils (Reactive bilaterally 3 mm) Spasticity Tone within normal limits Clonus: Positive (1-2 beats) Exam Comments Sanchez in place SCDs in place Assessment and Plan Diagnosis: (1) Traumatic brain injury Encounter type: initial encounter Assessment 1. Traumatic brain injury 01/27/17 status post fall including large acute subdural hematoma left frontal temporal parietal area measuring 20 mm with possible epidural components superiorly; 7 mm of subfalcine herniation to the right with diffuse effacement of the left cerebral sulci and right temporal fracture status post left decompressive frontotemporal parietal craniotomy with evacuation of subdural hematoma with placement of ICP monitor and ventriculostomy. Now [place] level II 2. Associated injuries include: -Left superior and inferior pubic rami fracture -Right sacral fracture -Right scapular fracture Plan 1. PT/OT providing range of motion. Patient currently dependent for all mobility and ADLs 2. Patient will need speech therapy. We'll follow to initiate 3. Appreciate neuropsychology consult and follow-up 4. SCDs in place for ETE prophylaxis 5. Continue to reposition every 2 hours to protect skin 6. Patient will likely need ongoing inpatient rehabilitation at discharge. Will follow in conjunction with case management 7. Will follow while hospitalized and at discharge. Thank you for this consult Terri Springer MD Jan 29, 2017 17:12
[2017-01-29] MEDS: PANTOPRAZOLE SODIUM 40 MG VIAL IV SCH (17:57)
[2017-01-29] MEDS: DOCUSATE SODIUM 50 MG/SENNA 8.6 MG TAB PO SCH (21:00)
[2017-01-29] MEDS: CHLORHEXIDINE 0.12% (ORAL KIT) 15 ML CUP MT SCH (21:01)
[2017-01-30] VITALS (12 sets, daily range): BP systolic 110–138; BP diastolic 60–66; PULSE 77–94; RESP 14; TEMP 98.5–100.5; O2SAT 100
--- NOTE | 2017-01-30 05:44 | RADRPT ---
EXAM DATE/TIME: 01/30/2017 04:27 [place] COMPARISON: CHEST SINGLE AP, January 29, 2017, 5:13. INDICATIONS : Respiratory disease. MEDICAL HISTORY : Unobtainable SURGICAL HISTORY : Unobtainable ENCOUNTER: Subsequent ACUITY: 4 - 6 days PAIN SCORE: Non-responsive. LOCATION: Bilateral chest FINDINGS: A single view of the chest demonstrates the endotracheal tube, nasogastric tube, right IJ central cherry e and right apical pigtail chest tube catheter oral and good position. Lungs are grossly clear. The cardiomediastinal contours are unremarkable. Osseous structures are intact. CONCLUSION: Lungs are clear Sarabjit Landers MD on January 30, 2017 at 5:41 Board Certified Radiologist. This report was verified electronically.
[2017-01-30] MEDS: AMPICILLIN-SULBACTAM INJ 3 GM in SODIUM CHLORIDE 0.9% INJ 100 ML IV SCH ×4 (05:46→23:26)
[2017-01-30 05:53] LABS: BLOOD GAS BASE EXCESS 0.5 mmol/L (-2-2); BLOOD GAS CARBOXYHEMOGLOBIN 1.1 % (0-4); BLOOD GAS HCO3 25 mmol/L (22-26); BLOOD GAS O2 HGB SATURATION 97 % (90-100); BLOOD GAS OXYGEN CONTENT 12.1 Vol % (12.0-20.0); BLOOD GAS PCO2 42 mmHg (38-42); BLOOD GAS PO2 195 mmHg (61-120); BLOOD GAS TOTAL HGB 8.5 G/DL (12.0-16.0); CRITICAL VALUE NO; OXYGEN DEVICE VENTILATOR; TEMP CORR TO 98.6
[2017-01-30 05:54] LABS: DRAW SITE ART LINE; FIO2 40 %; STAT NO; VENT SETTINGS AC/14/500/PEEP 5
[2017-01-30] MEDS: SODIUM CHLORIDE IV SCH (06:13)
[2017-01-30] MEDS: SODIUM CHLORID 0.9% IV SCH (06:13)
[2017-01-30 06:17] LABS: AUTOMATED NEUTROPHIL # 8.7 TH/MM3 (1.8-7.7); BASOPHIL % 0.2 % (0.0-2.0); EOSINOPHIL % 0.1 % (0.0-4.0); HEMATOCRIT 23.4 % (35.0-46.0); LYMPH % 12.8 % (9.0-44.0); LYMPHOCYTE # 1.4 TH/MM3 (1.0-4.8); MEAN CELL VOLUME 87.9 FL (80.0-100.0); MEAN CORPUSCULAR HEMOGLOBIN 30.7 PG (27.0-34.0); MONO % 8.1 % (0.0-8.0); NEUT % 78.8 % (16.0-70.0); PLATELET COUNT 99 TH/MM3 (150-450); RED BLOOD COUNT 2.66 MIL/MM3 (4.00-5.30); RED CELL DISTRIBUTION WIDTH 17.8 % (11.6-17.2)
[2017-01-30 06:31] LABS: HEMO FLAGS AUTO DIFF
--- NOTE | 2017-01-30 07:07 | HHI.NSPN ---
History Chief Complaint: Unable to obtain due to clinical condition. Interval History Interval History 01/27: Patient is a middle-aged female who according to her family fell through a garage ceiling landing on the floor one-story down. Positive loss of consciousness. Patient was reportedly unresponsive immediately after the event. No seizure activity reported. She was GCS 3-4 at the scene and brought to [facility] emergency room as a trauma alert per EMS. She was intubated in the emergency room. She was noted to have a fixed dilated left pupil and pinpoint right pupil in the emergency room on initial evaluation. The undersigned reviewed the patient's CT scan images shortly after completion while the patient was in the CT scanning suite. Images revealed a large left hemispheric acute subdural hematoma with approximate 16 mm midline shift, significant effacement of the left ventricle and cisterns. Patient was taken emergently to the operating room from the CT scanning suite. 01/28: The patient is intubated and mechanically ventilated with propofol & fentanyl for sedation. She is on norepinephrine for blood pressure support which Nursing states she is titrating down. Nursing also reported that the patient did squeeze with her hands this morning. The patient was transfused this morning for a haemoglobin of 7.4. 01/29: The patient remains intubated and mechanically ventilated. The propofol & fentanyl drips have been off since 929 this morning. She is no longer on any vasopressors. Saline 3% is infusing. Nursing states she is withdrawing but has not had any eye opening. ICP has been running 4 to 5 on the ventriculostomy per Nursing and that the bolt pressure is not being used since it was reportedly not in proper position. Nursing also reports excessive drainage from the ventriculostomy 01/29: Patient intubated on minimal sedation. Not opening eyes to verbal or tactile stimulation Exam Results Vital Signs Date Time Temp Pulse Resp B/P Pulse Ox O2 Delivery O2 Flow Rate FiO2 01/30/17 04:50 100 40 01/30/17 04:00 99.7 92 14 114/62 01/29/17 07:00 Mechanical Ventilator Intake and Output 01/29/17 01/29/17 01/30/17 08:00 16:00 00:00 Intake Total 676 ml 1111 ml 1099 ml Output Total 479 ml 665 ml 764 ml Balance 197 ml 446 ml 335 ml Physical Examination Neurological: Eyes closed to painful stimulation. Pupils are 3 mm reactive. There are roving eye movements. Patient localizes pain in upper extremities and withdraws lower extremities. Moves all 4 extremities spontaneously off of sedation. AVBD draining bloody CSF and ICPs 78 mm Hg Lab, Micro, Other Results Laboratory Tests Test 01/29/17 01/29/17 01/30/17 01/30/17 12:00 18:00 00:15 05:30 Sodium Level 154 154 155 Blood Gas Puncture Site ART LINE Blood Gas Patient Temperature 98.6 Blood Gas HCO3 25 Blood Gas Base Excess 0.5 Blood Gas Oxygen Saturation 97 Arterial Blood pH 7.39 Arterial Blood Partial 42 Pressure CO2 Arterial Blood Partial 195 Pressure O2 Arterial Blood Oxygen Content 12.1 Arterial Blood 1.1 Carboxyhemoglobin Arterial Blood Methemoglobin 1.0 Blood Gas Hemoglobin 8.5 Oxygen Delivery Device VENTILATOR Blood Gas Ventilator Setting AC/14/500/PEEP 5 Blood Gas Inspired Oxygen 40 Test 01/30/17 05:45 White Blood Count 11.0 Red Blood Count 2.66 Hemoglobin 8.2 Hematocrit 23.4 Mean Corpuscular Volume 87.9 Mean Corpuscular Hemoglobin 30.7 Mean Corpuscular Hemoglobin 35.0 Concent Red Cell Distribution Width 17.8 Platelet Count 99 Mean Platelet Volume 8.3 Neutrophils (%) (Auto) 78.8 Lymphocytes (%) (Auto) 12.8 Monocytes (%) (Auto) 8.1 Eosinophils (%) (Auto) 0.1 Basophils (%) (Auto) 0.2 Neutrophils # (Auto) 8.7 Lymphocytes # (Auto) 1.4 Monocytes # (Auto) 0.9 Eosinophils # (Auto) 0.0 Basophils # (Auto) 0.0 CBC Comment AUTO DIFF Sodium Level 157 Medical Decision Making Impression and Plan Impression: 1. Severe acute left hemisphere subdural hematoma with severe midline shift and mass effect. Status post left craniotomy. 2. Right temporal bone fracture-nondisplaced Plan: Continue aggressive ICU support. Wean the ventilator as tolerated. Continue ICP monitoring and ventriculostomy Derrek Rachel MD Jan 30, 2017 07:07
[2017-01-30] MEDS: CHLORHEXIDINE 0.12% (ORAL KIT) 15 ML CUP MT SCH ×2 (07:40→21:27)
[2017-01-30] MEDS: LACTULOSE SYRUP 20 GM/30 ML CUP PO SCH (07:40)
[2017-01-30] MEDS: DOCUSATE SODIUM 50 MG/SENNA 8.6 MG TAB PO SCH ×2 (07:40→21:26)
[2017-01-30] MEDS: levETIRAcetam INJ 500 MG in SODIUM CHLORIDE 0.9% INJ 100 ML IV SCH ×2 (07:40→21:27)
[2017-01-30] MEDS: SODIUM CHLORIDE 0.9% FLUSH 10 ML FLUSH IV FLUSH SCH ×2 (07:40→21:27)
[2017-01-30 08:14] LABS: ALKALINE PHOSPHATASE 61 U/L (45-117); ALT (GPT) 38 U/L (10-53); ANION GAP 5 MEQ/L (5-15); AST (GOT) 35 U/L (15-37); BICARBONATE 26.4 MEQ/L (21.0-32.0); BLOOD UREA NITROGEN 12 MG/DL (7-18); CHLORIDE 127 MEQ/L (98-107); GLOMERULAR FILTRATION RATE 138 ML/MIN (>89); MAGNESIUM 2.2 MG/DL (1.5-2.5); POTASSIUM 3.5 MEQ/L (3.5-5.1); TOTAL BILIRUBIN ADULT 0.7 MG/DL (0.2-1.0)
[2017-01-30 08:48] LABS: SODIUM (NA) 158 MEQ/L (136-145)
[2017-01-30 08:53] LABS: PLATELET ESTIMATE SMEAR LOW (NORMAL); PLATELET MORPHOLOGY NORMAL (NORMAL); SCAN/DIFF AUTO DIFF CONFIRMED
--- NOTE | 2017-01-30 09:04 | HHI.CCPN ---
Subjective Remarks/Hospital Course 46-year-old female who according to her family fell through a garage ceiling landing on the floor one-story down. Positive loss of consciousness. Patient was reportedly unresponsive immediately after the event. No seizure activity reported. She was GCS 3-4 at the scene and brought to [facility] emergency room as a trauma alert per EMS. She was intubated in the emergency room. She was noted to have a fixed dilated left pupil and pinpoint right pupil in the emergency room on initial evaluation. The CT Images revealed a large left hemispheric acute subdural hematoma with approximate 16 mm midline shift, significant effacement of the left ventricle and cisterns. Patient was taken emergently to the operating room from the CT scanning suite. SUBJ 01/28/17: s/p Left decompressive frontotemporoparietal craniotomy for evacuation of acute subdural hematoma. Left frontal ventriculostomy catheter placement, and Left frontal twist drill for intracranial pressure monitor placement. ICP well controlled. Small to moderate line associated pneumothorax associated with central line placement. Started on Levophed to maintain MAP, CPP SUBJ 01/29: CT scan yesterday shows interval excellent evacuation of the subdural hemorrhage with improved midline shift from 17 mm to 4 mm. Neuro exam improving. Patient shakes her head to opened eyes couple times during night. Localizes to pain. ICP well controlled. Chest x-ray shows no residual pneumothorax 01/30: Remains intubated off pressors. Examination off sedation shows localizing 4, pupils are equal and reactive. Not following commands. Chest x- ray clear without pneumothorax Objective Vital Signs Date Time Temp Pulse Resp B/P Pulse Ox O2 Delivery O2 Flow Rate FiO2 01/30/17 08:14 100 40 01/30/17 08:00 92 123/62 01/30/17 04:00 99.7 14 01/29/17 07:00 Mechanical Ventilator Intake and Output 01/29/17 01/29/17 01/30/17 08:00 16:00 00:00 Intake Total 676 ml 1111 ml 1099 ml Output Total 479 ml 665 ml 764 ml Balance 197 ml 446 ml 335 ml Result Diagram: 01/30/17 0545 01/30/17 0545 Other Results Laboratory Tests Test 01/30/17 05:30 Blood Gas Puncture Site ART LINE Blood Gas Patient Temperature 98.6 Blood Gas HCO3 25 mmol/L (22-26) Blood Gas Base Excess 0.5 mmol/L (-2-2) Blood Gas Oxygen Saturation 97 % (90-100) Arterial Blood pH 7.39 (7.380-7.420) Arterial Blood Partial 42 mmHg (38-42) Pressure CO2 Arterial Blood Partial 195 mmHg Pressure O2 (61-120) Arterial Blood Oxygen Content 12.1 Vol % (12.0-20.0) Arterial Blood 1.1 % (0-4) Carboxyhemoglobin Arterial Blood Methemoglobin 1.0 % (0-2) Blood Gas Hemoglobin 8.5 G/DL (12.0-16.0) Oxygen Delivery Device VENTILATOR Blood Gas Ventilator Setting AC/14/500/PEEP 5 Blood Gas Inspired Oxygen 40 % Imaging Last 24 hours Impressions Thoracic Spine CT 01/27/171699 Signed Impressions: Service Date/Time: Friday, January 27, 2017 17:20 - CONCLUSION: 1. No fracture or subluxation. 2. Minimal subcutaneous emphysema seen within the upper neck likely related to patient's temporal bone fracture. Eb Guerin MD Pelvis X-Ray 01/27/171699 Signed Impressions: Service Date/Time: Friday, January 27, 2017 16:54 - CONCLUSION: 1. Left pubic rami fractures. Otoniel Crain MD Lumbar Spine CT 01/27/171699 Signed Impressions: Service Date/Time: Friday, January 27, 2017 17:20 - CONCLUSION: 1. No fracture or subluxation of the lumbar spine. 2. There are fractures of the right sacrum discussed in detail on CT the abdomen/pelvis. Eb Guerin MD Head CT 01/27/171699 Signed Impressions: Service Date/Time: Friday, January 27, 2017 17:20 - CONCLUSION: 1. Large acute subdural hematoma along the left frontal parietal and temporal lobes measuring 20 mm in greatest width with possible additional epidural component more superiorly. There is approximately 17 mm of subfalcine herniation to the right as well as diffuse effacement of the left cerebral sulci. 2. Acute right temporal bone fracture. 3. Fluid levels within the right maxillary sinus and left sphenoid sinus. Juan Carlos Jc MD Chest X-Ray 01/27/171699 Signed Impressions: Service Date/Time: Friday, January 27, 2017 16:54 - CONCLUSION: 1. Acute fracture involving the right scapula. 2. Endotracheal tube in good position 3 cm above the dima. Juan Carlos Jc MD Chest CT 01/27/17 1700 Signed Impressions: Service Date/Time: Friday, January 27, 2017 17:25 - CONCLUSION: 1. Comminuted fracture involving the right scapula. 2. Minimal posterior atelectatic changes bilaterally. Juan Carlos Jc MD Cervical Spine CT 01/27/17 1700 Signed Impressions: Service Date/Time: Friday, January 27, 2017 17:24 - CONCLUSION: 1. No acute fracture or prevertebral soft tissue swelling. 2. Straightening of the normal cervical lordosis. 3. Cervical spondylosis from C3 through C6. 4. Mild bilateral foraminal narrowing at C3-4, C4-5 and C5-6. Juan Carlos Jc MD Abdomen/Pelvis CT 01/27/17 1700 Signed Impressions: Service Date/Time: Friday, January 27, 2017 17:25 - CONCLUSION: 1. Acute fractures along the right sacrum as well as the left superior and inferior pubic rami. 2. No intra-abdominal trauma identified. Juan Carlos Jc MD Radius/Ulna X-Ray 01/27/17 0000 Signed Impressions: Service Date/Time: Friday, January 27, 2017 16:54 - CONCLUSION: Soft tissue swelling involving the right mid forearm without underlying radial or ulnar fracture. Juan Carlos Jc MD Chest X-Ray 01/27/17 0000 Signed Impressions: Service Date/Time: Friday, January 27, 2017 21:57 - CONCLUSION: No acute disease. Adequate placement of right jugular central line. Questionable tiny right apical pneumothorax. Followup studies recommended. Eb Guerin MD Objective Remarks GENERAL: Well-nourished, well-developed patient. SKIN: Warm and dry. HEAD: Status post severe head injury, EVD in place, at 5, 300 ml in 24 hours EYES: No scleral icterus. No injection or drainage. Pupils 3 mm briskly reactive. NECK: Supple, trachea midline. No JVD or lymphadenopathy. CARDIOVASCULAR: Regular rate and rhythm without murmurs, gallops, or rubs. RESPIRATORY: Breath sounds equal bilaterally. No accessory muscle use. GASTROINTESTINAL: Abdomen soft, non-tender, nondistended. MUSCULOSKELETAL: No cyanosis, or edema. BACK: Nontender without obvious deformity. No CVA tenderness. EXTREMITIES: No clubbing cyanosis or edema NEURO: Pupils 3 mm briskly reactive. Moves extremities spontaneously, and localizes to pain x4. Not following commands A/P Assessment and Plan NEURO: Severe acute left hemisphere subdural hematoma with midline shift and mass effect Right temporal bone fracture-nondisplaced - Status post emergent evacuation, EVD and ICP monitor placement by Dr. Bahena - CT head 01/28-excellent evacuation of the subdural hemorrhage with significant improvement in midline shift - Monitor ICP-well controlled overnight. EVD 300 ml in 24 hour - DC Hypertonic saline, keep Na 150-155, Mannitol if needed - Marzena for sz prophylaxis - Neuro exam, steadily improving RESP: Acute Respiratory failure Iatrogenic pneumothorax - Intubated for airway protection - No weaning until neurologically improved - Continue mechanical ventilation - End-tidal CO2 - Placed R right pigtail chest tube, with resolution of pneumothorax - SBT without extubation, will not be able to protect airway CVS: Hypotension, now hypertensive - off Levophed now hypertensive - Cardene infusion and when necessary labetalol and hydralazine to keep systolic blood pressure less than 140-150 - NS IV fluids - Flow trac monitoring GI: - Tube feeds, IV Protonix : - Monitor UO. Monitor BUN/creatinine ID: - Patient has right temporal bone fracture with fluid in mastoid air cells - Empiric Unasyn Endo: - Electrolyte replacement per protocol MSK: Scapular, pelvic, and sacral fractures - No indication for surgery - Conservative and supportive care DVT GI prophylaxis - Teds SCDs - No pharmacological DVT prophylaxis - Reevaluate after 48-72 hours and discuss with neurosurgeon - Protonix Critical Care: The total critical care time was 35 minutes. Time to perform other separately billable procedures was not included in the critical care time. Oscar Norman MD Jan 30, 2017 09:04
[2017-01-30] MEDS: ICU - POTASSIUM PHOSPHATE 30 MMOL/NS 250 ML IV PRN ×2 (10:36)
--- NOTE | 2017-01-30 11:48 | HHI.CCPN ---
Subjective Brief History severe traumatic brain injury. Yoandy coma scale 3. Large left temporoparietal subdural hematoma, right basal skull fracture through the petrous bone with extrusion of some brain matter on the right, fracture of the right scapula, left superior inferior ramus pubic fracture with minimal displacement and a right sacral fracture. Patient will be taken immediately to the operating room. Patient underwent a left frontotemporal craniectomy with evacuation of subdural hematoma and placement of ventriculostomy Orthopedic consult was obtained and no further operative management will be instituted 24 Hour Review/Hospital Course Patient has been in the ICU overnight intubated and ventilated 01/29/17 Neurologic status is unchanged ICP remains low Pupils are equal about 2 mm and somewhat reactive Patient remains on propofol fentanyl Hypertonic 3% saline at 30 cc/h Keppra No clinical suspicion of seizures 01/30/17 Patient is withdrawing all 4 extremities and localizes and opened her eyes ICP remains low around 8 mmHg Removed from propofol and fentanyl or any form of sedation Sodium 158 and hypertonic saline removed Remains intubated and ventilated and starting to pickup on her own the rate Objective Vital Signs Date Time Temp Pulse Resp B/P Pulse Ox O2 Delivery O2 Flow Rate FiO2 01/30/17 08:14 100 40 01/30/17 08:00 92 123/62 01/30/17 08:00 98.9 14 01/29/17 07:00 Mechanical Ventilator Intake and Output 01/29/17 01/29/17 01/30/17 08:00 16:00 00:00 Intake Total 676 ml 1111 ml 1099 ml Output Total 479 ml 665 ml 764 ml Balance 197 ml 446 ml 335 ml Result Diagram: 01/30/17 0545 01/30/17 0545 Other Results Laboratory Tests Test 01/30/17 05:30 Blood Gas Puncture Site ART LINE Blood Gas Patient Temperature 98.6 Blood Gas HCO3 25 mmol/L (22-26) Blood Gas Base Excess 0.5 mmol/L (-2-2) Blood Gas Oxygen Saturation 97 % (90-100) Arterial Blood pH 7.39 (7.380-7.420) Arterial Blood Partial 42 mmHg (38-42) Pressure CO2 Arterial Blood Partial 195 mmHg Pressure O2 (61-120) Arterial Blood Oxygen Content 12.1 Vol % (12.0-20.0) Arterial Blood 1.1 % (0-4) Carboxyhemoglobin Arterial Blood Methemoglobin 1.0 % (0-2) Blood Gas Hemoglobin 8.5 G/DL (12.0-16.0) Oxygen Delivery Device VENTILATOR Blood Gas Ventilator Setting AC/14/500/PEEP 5 Blood Gas Inspired Oxygen 40 % Imaging Last 24 hours Impressions Chest X-Ray 01/30/17 0600 Signed Impressions: Service Date/Time: Wednesday, January 30, 2017 04:27 - CONCLUSION: Lungs are clear Sarabjit Landers MD Exam [employer] Patient is withdrawing all 4 extremities and localizes and opened her eyes ICP remains low around 8 mmHg Removed from propofol and fentanyl or any form of sedation Sodium 158 and hypertonic saline removed Remains intubated and ventilated and starting to pickup on her own the rate Hemodynamic/Cardiac Hemodynamically intact Pulmonary/Respiratory Bilateral breath sounds breathing slightly over the ventilator Will decrease the rate and allow patient to pickup on her own and then possibly do CPAP trial just to allow patient to breathe on her own Depending on the recovery of neurologic status patient will likely need a tracheostomy but we'll see how she does next week Abdomen/GI Nutrition Abdomen soft enteral feeds tolerated Renal/I&O Good urine output preserved renal function Assessment and Plan Attestation Critical care 38 minutes Noemy Philip MD Jan 30, 2017 11:48
[2017-01-30] MEDS: PANTOPRAZOLE SODIUM 40 MG VIAL IV SCH (17:23)
[2017-01-30 19:45] LABS: POTASSIUM 3.2 MEQ/L (3.5-5.1)
[2017-01-30] MEDS: ACETAMINOPHEN 325 MG TAB PO PRN (21:26)
[2017-01-31] VITALS (18 sets, daily range): BP systolic 118–136; BP diastolic 55–64; PULSE 75–110; RESP 14–25; TEMP 99–99.6; O2SAT 100
[2017-01-31] MEDS: SODIUM CHLORIDE IV SCH ×2 (01:00→17:17)
[2017-01-31] MEDS: SODIUM CHLORID 0.9% IV SCH ×2 (01:00→17:17)
[2017-01-31] MEDS: AMPICILLIN-SULBACTAM INJ 3 GM in SODIUM CHLORIDE 0.9% INJ 100 ML IV SCH ×4 (05:31→23:19)
[2017-01-31 05:34] LABS: AUTOMATED NEUTROPHIL # 7.6 TH/MM3 (1.8-7.7); BASOPHIL % 0.5 % (0.0-2.0); EOSINOPHIL # 0.1 TH/MM3 (0-0.4); EOSINOPHIL % 0.8 % (0.0-4.0); HEMATOCRIT 22.9 % (35.0-46.0); LYMPH % 15.3 % (9.0-44.0); LYMPHOCYTE # 1.5 TH/MM3 (1.0-4.8); MEAN CELL VOLUME 88.9 FL (80.0-100.0); MEAN CORPUSCULAR HEMOGLOBIN 30.8 PG (27.0-34.0); MEAN CORPUSCULAR HGB CONC 34.6 % (32.0-36.0); MONO % 5.9 % (0.0-8.0); NEUT % 77.5 % (16.0-70.0); PLATELET COUNT 121 TH/MM3 (150-450); RED BLOOD COUNT 2.58 MIL/MM3 (4.00-5.30); RED CELL DISTRIBUTION WIDTH 17.2 % (11.6-17.2); WHITE BLOOD COUNT 9.8 TH/MM3 (4.0-11.0)
[2017-01-31 05:36] LABS: HEMO FLAGS AUTO DIFF
[2017-01-31 06:16] LABS: SODIUM (NA) 157 MEQ/L (136-145)
--- NOTE | 2017-01-31 06:22 | RADRPT ---
EXAM DATE/TIME: 01/31/2017 05:00 [facility] COMPARISON: CHEST SINGLE AP, January 30, 2017, 4:27. INDICATIONS : Shortness of breath. MEDICAL HISTORY : None. SURGICAL HISTORY : Cranial sx ENCOUNTER: Subsequent ACUITY: 4 - 6 days PAIN SCORE: Non-responsive. LOCATION: Bilateral chest FINDINGS: A single view of the chest demonstrates the right sided pigtail catheter and a right IJ central venou s catheter are in good position. The endotracheal tube and nasogastric are both in good position. Ld gs are grossly clear. Persistent small pneumothorax is noted. The cardiomediastinal contours are unr emarkable. Osseous structures are intact. CONCLUSION: Small right-sided pneumothorax persists. Pigtail catheter overlies the right lung apex Sarabjit Landers MD on January 31, 2017 at 6:19 Board Certified Radiologist. This report was verified electronically.
[2017-01-31 06:54] LABS: BANDS 3 % (0-6); NEUTROPHIL # MANUAL DIFF 7.1 TH/MM3 (1.8-7.7); POLYS (SEG NEUTROPHILS) 69 % (16-70); WBC DIFF SAMPLE 100
[2017-01-31 06:55] LABS: PLATELET ESTIMATE SMEAR LOW (NORMAL); PLATELET MORPHOLOGY NORMAL (NORMAL); SCAN/DIFF FINAL DIFF MANUAL
--- NOTE | 2017-01-31 06:58 | HHI.CCPN ---
Subjective Remarks/Hospital Course 46-year-old female who according to her family fell through a garage ceiling landing on the floor one-story down. Positive loss of consciousness. Patient was reportedly unresponsive immediately after the event. No seizure activity reported. She was GCS 3-4 at the scene and brought to [facility] emergency room as a trauma alert per EMS. She was intubated in the emergency room. She was noted to have a fixed dilated left pupil and pinpoint right pupil in the emergency room on initial evaluation. The CT Images revealed a large left hemispheric acute subdural hematoma with approximate 16 mm midline shift, significant effacement of the left ventricle and cisterns. Patient was taken emergently to the operating room from the CT scanning suite. SUBJ 01/28/17: s/p Left decompressive frontotemporoparietal craniotomy for evacuation of acute subdural hematoma. Left frontal ventriculostomy catheter placement, and Left frontal twist drill for intracranial pressure monitor placement. ICP well controlled. Small to moderate line associated pneumothorax associated with central line placement. Started on Levophed to maintain MAP, CPP SUBJ 01/29: CT scan yesterday shows interval excellent evacuation of the subdural hemorrhage with improved midline shift from 17 mm to 4 mm. Neuro exam improving. Patient shakes her head to opened eyes couple times during night. Localizes to pain. ICP well controlled. Chest x-ray shows no residual pneumothorax 01/30: Remains intubated off pressors. Examination off sedation shows localizing 4, pupils are equal and reactive. Not following commands. Chest x- ray clear without pneumothorax 01/31: Neuro exam continues to improve. Opening eyes spontaneously and to pain. Localizes to pain 4 not following commands yet but shakes her head. Small apical pneumothorax most likely due to blockage and the pigtail-this was cleared we'll repeat chest x-ray Objective Vital Signs Date Time Temp Pulse Resp B/P Pulse Ox O2 Delivery O2 Flow Rate FiO2 01/31/17 06:00 75 01/31/17 04:50 100 40 01/31/17 04:00 99.6 14 128/56 01/29/17 07:00 Mechanical Ventilator Intake and Output 01/30/17 01/30/17 01/31/17 08:00 16:00 00:00 Intake Total 1060 ml 1193 ml 294 ml Output Total 408 ml 551 ml 506 ml Balance 652 ml 642 ml -212 ml Result Diagram: 01/31/1720 01/31/17519 Imaging Last 24 hours Impressions Thoracic Spine CT 01/27/171699 Signed Impressions: Service Date/Time: Friday, January 27, 2017 17:20 - CONCLUSION: 1. No fracture or subluxation. 2. Minimal subcutaneous emphysema seen within the upper neck likely related to patient's temporal bone fracture. Eb Guerin MD Pelvis X-Ray 01/27/171699 Signed Impressions: Service Date/Time: Friday, January 27, 2017 16:54 - CONCLUSION: 1. Left pubic rami fractures. Otoniel Crain MD Lumbar Spine CT 01/27/171699 Signed Impressions: Service Date/Time: Friday, January 27, 2017 17:20 - CONCLUSION: 1. No fracture or subluxation of the lumbar spine. 2. There are fractures of the right sacrum discussed in detail on CT the abdomen/pelvis. Eb Guerin MD Head CT 01/27/171699 Signed Impressions: Service Date/Time: Friday, January 27, 2017 17:20 - CONCLUSION: 1. Large acute subdural hematoma along the left frontal parietal and temporal lobes measuring 20 mm in greatest width with possible additional epidural component more superiorly. There is approximately 17 mm of subfalcine herniation to the right as well as diffuse effacement of the left cerebral sulci. 2. Acute right temporal bone fracture. 3. Fluid levels within the right maxillary sinus and left sphenoid sinus. Juan Carlos Jc MD Chest X-Ray 01/27/171699 Signed Impressions: Service Date/Time: Friday, January 27, 2017 16:54 - CONCLUSION: 1. Acute fracture involving the right scapula. 2. Endotracheal tube in good position 3 cm above the dima. Juan Carlos Jc MD Chest CT 01/27/171699 Signed Impressions: Service Date/Time: Friday, January 27, 2017 17:25 - CONCLUSION: 1. Comminuted fracture involving the right scapula. 2. Minimal posterior atelectatic changes bilaterally. Juan Carlos Jc MD Cervical Spine CT 01/27/171699 Signed Impressions: Service Date/Time: Friday, January 27, 2017 17:24 - CONCLUSION: 1. No acute fracture or prevertebral soft tissue swelling. 2. Straightening of the normal cervical lordosis. 3. Cervical spondylosis from C3 through C6. 4. Mild bilateral foraminal narrowing at C3-4, C4-5 and C5-6. Juan Carlos Jc MD Abdomen/Pelvis CT 01/27/17 1700 Signed Impressions: Service Date/Time: Friday, January 27, 2017 17:25 - CONCLUSION: 1. Acute fractures along the right sacrum as well as the left superior and inferior pubic rami. 2. No intra-abdominal trauma identified. Juan Carlos Jc MD Radius/Ulna X-Ray 01/27/17 0000 Signed Impressions: Service Date/Time: Friday, January 27, 2017 16:54 - CONCLUSION: Soft tissue swelling involving the right mid forearm without underlying radial or ulnar fracture. Juan Carlos Jc MD Chest X-Ray 01/27/17 0000 Signed Impressions: Service Date/Time: Friday, January 27, 2017 21:57 - CONCLUSION: No acute disease. Adequate placement of right jugular central line. Questionable tiny right apical pneumothorax. Followup studies recommended. Eb Guerin MD Objective Remarks GENERAL: Well-nourished, well-developed patient. Intubated not on continuous sedation SKIN: Warm and dry. HEAD: Status post craniotomy circumferential dressing in place, EVD in place, at 5, 280 ml in 24 hours EYES: No scleral icterus. No injection or drainage. Pupils 3 mm briskly reactive. NECK: Supple, trachea midline. No JVD or lymphadenopathy. CARDIOVASCULAR: Regular rate and rhythm without murmurs, gallops, or rubs. RESPIRATORY: Breath sounds equal bilaterally. No accessory muscle use. 1+ GASTROINTESTINAL: Abdomen soft, non-tender, nondistended. MUSCULOSKELETAL: No cyanosis, or edema. BACK: Nontender without obvious deformity. No CVA tenderness. EXTREMITIES: No clubbing cyanosis or edema NEURO: Pupils 3 mm briskly reactive. Moves extremities spontaneously, and localizes to pain x4. Opens eyes to pain and sometimes spontaneously Urinary Catheter: Yes Assessment to: Continue A/P Assessment and Plan NEURO: Severe acute left hemisphere subdural hematoma with midline shift and mass effect Right temporal bone fracture-nondisplaced - Status post emergent evacuation, EVD and ICP monitor placement by Dr. Bahena - CT head 01/28-excellent evacuation of the subdural hemorrhage with significant improvement in midline shift - Monitor ICP-well controlled. Monitor EVD output - DCd Hypertonic saline, keep Na 150-155, Mannitol if needed - Marzena for sz prophylaxis - Neuro exam, steadily improving RESP: Acute Respiratory failure Iatrogenic pneumothorax - Intubated for airway protection - No weaning until neurologically improved - Continue mechanical ventilation - End-tidal CO2 - Placed R right pigtail chest tube, with resolution of pneumothorax - 01/31 Slight re expansion of pneumothorax. Chest tube was occluded, cleared by suctioning - SBT without extubation, will not be able to protect airway - ETCO2 monitoring CVS: Hypertension - off Levophed now hypertensive - Cardene infusion and when necessary labetalol and hydralazine to keep systolic blood pressure less than 140-150 - Flow trac monitoring GI: - Tube feeds, IV Protonix - Increase lactulose to QID - Add Dulcolax suppository : - Monitor UO. Monitor BUN/creatinine ID: - Patient has right temporal bone fracture with fluid in mastoid air cells - Empiric Unasyn Endo: - Electrolyte replacement per protocol MSK: Scapular, pelvic, and sacral fractures - No indication for surgery - Conservative and supportive care DVT GI prophylaxis - Teds SCDs - No pharmacological DVT prophylaxis - Will discuss with neurosurgeon - Protonix Critical Care: The total critical care time was 35 minutes. Time to perform other separately billable procedures was not included in the critical care time. Oscar Norman MD Jan 31, 2017 06:58
[2017-01-31 07:17] LABS: BLOOD GAS BASE EXCESS 2.9 mmol/L (-2-2); BLOOD GAS HCO3 27 mmol/L (22-26); BLOOD GAS METHEMOGLOBIN 0.9 % (0-2); BLOOD GAS O2 HGB SATURATION 98 % (90-100); BLOOD GAS OXYGEN CONTENT 11.3 Vol % (12.0-20.0); BLOOD GAS PCO2 38 mmHg (38-42); BLOOD GAS PO2 200 mmHg (61-120); BLOOD GAS TOTAL HGB 7.9 G/DL (12.0-16.0); TEMP CORR TO 98.6
[2017-01-31 07:18] LABS: CRITICAL VALUE NO; DRAW SITE ART LINE; FIO2 40 %; OXYGEN DEVICE VENTILATOR; STAT NO
[2017-01-31 07:21] LABS: ALT (GPT) 37 U/L (10-53); ANION GAP 5 MEQ/L (5-15); AST (GOT) 32 U/L (15-37); BICARBONATE 28.4 MEQ/L (21.0-32.0); BLOOD UREA NITROGEN 13 MG/DL (7-18); CHLORIDE 124 MEQ/L (98-107); GLOMERULAR FILTRATION RATE 141 ML/MIN (>89); POTASSIUM 3.4 MEQ/L (3.5-5.1); TOTAL BILIRUBIN ADULT 0.6 MG/DL (0.2-1.0)
[2017-01-31 07:22] LABS: ALKALINE PHOSPHATASE 65 U/L (45-117)
[2017-01-31] MEDS: CHLORHEXIDINE 0.12% (ORAL KIT) 15 ML CUP MT SCH ×2 (08:05→20:38)
[2017-01-31] MEDS: DOCUSATE SODIUM 50 MG/SENNA 8.6 MG TAB PO SCH ×2 (08:05→20:37)
[2017-01-31] MEDS: SODIUM CHLORIDE 0.9% FLUSH 10 ML FLUSH IV FLUSH SCH ×2 (08:05→20:38)
[2017-01-31] MEDS: levETIRAcetam INJ 500 MG in SODIUM CHLORIDE 0.9% INJ 100 ML IV SCH ×2 (08:05→20:37)
--- NOTE | 2017-01-31 08:25 | RADRPT ---
EXAM DATE/TIME: 01/31/2017 08:03 [facility] COMPARISON: CHEST SINGLE AP, January 28, 2017, 8:47. CHEST SINGLE AP, January 28, 2017, 9:30. CT THORAX W CONTRAST, J karine 2016, 17:25. CHEST SINGLE AP, January 31, 2017, 5:00. INDICATIONS : Pneumothorax. MEDICAL HISTORY : None. SURGICAL HISTORY : None. ENCOUNTER: Subsequent ACUITY: 2 days PAIN SCORE: Non-responsive. LOCATION: Right chest FINDINGS: There is no pneumothorax with right chest tube in good position. Support apparatus is in good positi on. Minimal bibasilar parenchymal changes are evident. CONCLUSION: There is no pneumothorax. Israel Dominguez MD FACR on January 31, 2017 at 8:22 Board Certified Radiologist. This report was verified electronically.
[2017-01-31] MEDS: LACTULOSE SYRUP 20 GM/30 ML CUP PO SCH ×4 (08:56→20:37)
[2017-01-31] MEDS: BISACODYL 10 MG SUPP RECTAL SCH (09:14)
[2017-01-31] MEDS: ICU - POTASSIUM PHOSPHATE 30 MMOL/NS 250 ML IV PRN ×2 (09:28)
--- NOTE | 2017-01-31 10:51 | HHI.NSPN ---
History Chief Complaint: Unable to obtain due to clinical condition. Interval History Interval History 01/27: Patient is a middle-aged female who according to her family fell through a garage ceiling landing on the floor one-story down. Positive loss of consciousness. Patient was reportedly unresponsive immediately after the event. No seizure activity reported. She was GCS 3-4 at the scene and brought to [facility] emergency room as a trauma alert per EMS. She was intubated in the emergency room. She was noted to have a fixed dilated left pupil and pinpoint right pupil in the emergency room on initial evaluation. The undersigned reviewed the patient's CT scan images shortly after completion while the patient was in the CT scanning suite. Images revealed a large left hemispheric acute subdural hematoma with approximate 16 mm midline shift, significant effacement of the left ventricle and cisterns. Patient was taken emergently to the operating room from the CT scanning suite. 01/28: The patient is intubated and mechanically ventilated with propofol & fentanyl for sedation. She is on norepinephrine for blood pressure support which Nursing states she is titrating down. Nursing also reported that the patient did squeeze with her hands this morning. The patient was transfused this morning for a haemoglobin of 7.4. 01/29: The patient remains intubated and mechanically ventilated. The propofol & fentanyl drips have been off since 929 this morning. She is no longer on any vasopressors. Saline 3% is infusing. Nursing states she is withdrawing but has not had any eye opening. ICP has been running 4 to 5 on the ventriculostomy per Nursing and that the bolt pressure is not being used since it was reportedly not in proper position. Nursing also reports excessive drainage from the ventriculostomy 01/30: Patient intubated on minimal sedation. Not opening eyes to verbal or tactile stimulation 01/31: Patient remains intubated on minimal sedation. At this point she is opening her eyes and tracking to verbal stimulation. Exam Results Vital Signs Date Time Temp Pulse Resp B/P Pulse Ox O2 Delivery O2 Flow Rate FiO2 01/31/17 10:00 84 01/31/17 08:19 40 01/31/17 08:07 100 01/31/17 08:00 136/62 01/31/17 08:00 99.6 25 01/29/17 07:00 Mechanical Ventilator Intake and Output 01/30/17 01/30/17 01/31/17 08:00 16:00 00:00 Intake Total 1060 ml 1193 ml 294 ml Output Total 408 ml 551 ml 506 ml Balance 652 ml 642 ml -212 ml Physical Examination Neurological: Eyes open to painful stimulation in patient tracking to voice. Shakes her head no to painful stimulation. Pupils are 3 mm reactive. Patient localizes pain in upper extremities and withdraws lower extremities. Moves all 4 extremities spontaneously off of sedation. EVD draining bloody CSF and ICPs 7 8 mm Hg Lab, Micro, Other Results Laboratory Tests Test 01/30/17 01/30/17 01/30/17 01/31/17 12:00 18:00 23:34 05:20 Sodium Level 157 156 158 157 Potassium Level 3.2 3.4 Phosphorus Level 1.6 1.9 White Blood Count 9.8 Red Blood Count 2.58 Hemoglobin 7.9 Hematocrit 22.9 Mean Corpuscular Volume 88.9 Mean Corpuscular Hemoglobin 30.8 Mean Corpuscular Hemoglobin 34.6 Concent Red Cell Distribution Width 17.2 Platelet Count 121 Mean Platelet Volume 8.3 Neutrophils (%) (Auto) 77.5 Lymphocytes (%) (Auto) 15.3 Monocytes (%) (Auto) 5.9 Eosinophils (%) (Auto) 0.8 Basophils (%) (Auto) 0.5 Neutrophils # (Auto) 7.6 Lymphocytes # (Auto) 1.5 Monocytes # (Auto) 0.6 Eosinophils # (Auto) 0.1 Basophils # (Auto) 0.0 CBC Comment AUTO DIFF Differential Total Cells 100 Counted Neutrophils % (Manual) 69 Band Neutrophils % 3 Lymphocytes % 21 Monocytes % 7 Neutrophils # (Manual) 7.1 Differential Comment FINAL DIFF MANUAL Platelet Estimate LOW Platelet Morphology Comment NORMAL Chloride Level 124 Carbon Dioxide Level 28.4 Anion Gap 5 Blood Urea Nitrogen 13 Creatinine 0.47 Estimat Glomerular Filtration 141 Rate Random Glucose 121 Calcium Level 7.8 Magnesium Level 2.0 Total Bilirubin 0.6 Aspartate Amino Transf 32 (AST/SGOT) Alanine Aminotransferase 37 (ALT/SGPT) Alkaline Phosphatase 65 Total Protein 5.0 Albumin 2.0 Test 01/31/17 07:10 Blood Gas Puncture Site ART LINE Blood Gas Patient Temperature 98.6 Blood Gas HCO3 27 Blood Gas Base Excess 2.9 Blood Gas Oxygen Saturation 98 Arterial Blood pH 7.46 Arterial Blood Partial 38 Pressure CO2 Arterial Blood Partial 200 Pressure O2 Arterial Blood Oxygen Content 11.3 Arterial Blood 1.0 Carboxyhemoglobin Arterial Blood Methemoglobin 0.9 Blood Gas Hemoglobin 7.9 Oxygen Delivery Device VENTILATOR Blood Gas Ventilator Setting CPAP,PEEP5,PS10 Blood Gas Inspired Oxygen 40 Medical Decision Making Impression and Plan Impression: 1. Severe acute left hemisphere subdural hematoma with severe midline shift and mass effect. Status post left craniotomy. 2. Right temporal bone fracture-nondisplaced Plan: Continue aggressive ICU support. Wean the ventilator as tolerated. Continue ICP monitoring and ventriculostomy Derrek Rachel MD Jan 31, 2017 10:51
--- NOTE | 2017-01-31 16:22 | HHI.CCPN ---
Subjective Brief History severe traumatic brain injury. [place] coma scale 3. Large left temporoparietal subdural hematoma, right basal skull fracture through the petrous bone with extrusion of some brain matter on the right, fracture of the right scapula, left superior inferior ramus pubic fracture with minimal displacement and a right sacral fracture. Patient will be taken immediately to the operating room. Patient underwent a left frontotemporal craniectomy with evacuation of subdural hematoma and placement of ventriculostomy Orthopedic consult was obtained and no further operative management will be instituted 24 Hour Review/Hospital Course Patient has been in the ICU overnight intubated and ventilated 01/29/17 Neurologic status is unchanged ICP remains low Pupils are equal about 2 mm and somewhat reactive Patient remains on propofol fentanyl Hypertonic 3% saline at 30 cc/h Keppra No clinical suspicion of seizures 01/30/17 Patient is withdrawing all 4 extremities and localizes and opened her eyes ICP remains low around 8 mmHg Removed from propofol and fentanyl or any form of sedation Sodium 158 and hypertonic saline removed Remains intubated and ventilated and starting to pickup on her own the rate 01/31 open eyes spontaneously-move extremities ICP around 10 mmHg ventriculostomy 110cc/8hrs tolerating CPAP Objective Vital Signs Date Time Temp Pulse Resp B/P Pulse Ox O2 Delivery O2 Flow Rate FiO2 01/31/17 15:51 100 40 01/31/17 14:00 96 01/31/17 12:00 99.0 16 122/62 01/29/17 07:00 Mechanical Ventilator Intake and Output 01/30/17 01/30/17 01/31/17 08:00 16:00 00:00 Intake Total 1060 ml 1193 ml 294 ml Output Total 408 ml 551 ml 506 ml Balance 652 ml 642 ml -212 ml Result Diagram: 01/31/17 0520 01/31/17 1200 Other Results Laboratory Tests Test 01/31/17 07:10 Blood Gas Puncture Site ART LINE Blood Gas Patient Temperature 98.6 Blood Gas HCO3 27 mmol/L (22-26) Blood Gas Base Excess 2.9 mmol/L (-2-2) Blood Gas Oxygen Saturation 98 % (90-100) Arterial Blood pH 7.46 (7.380-7.420) Arterial Blood Partial 38 mmHg (38-42) Pressure CO2 Arterial Blood Partial 200 mmHg Pressure O2 (61-120) Arterial Blood Oxygen Content 11.3 Vol % (12.0-20.0) Arterial Blood 1.0 % (0-4) Carboxyhemoglobin Arterial Blood Methemoglobin 0.9 % (0-2) Blood Gas Hemoglobin 7.9 G/DL (12.0-16.0) Oxygen Delivery Device VENTILATOR Blood Gas Ventilator Setting CPAP,PEEP5,PS10 Blood Gas Inspired Oxygen 40 % Imaging Last 24 hours Impressions Chest X-Ray 01/31/17 0800 Signed Impressions: Service Date/Time: Tuesday, January 31, 2017 08:03 - CONCLUSION: There is no pneumothorax. Israel Dominguez MD FACR Chest X-Ray 01/31/17 0600 Signed Impressions: Service Date/Time: Tuesday, January 31, 2017 05:00 - CONCLUSION: Small right- sided pneumothorax persists. Pigtail catheter overlies the right lung apex Sarabjit Landers MD Exam MANAGER INFORMATION [id number] Hemodynamic/Cardiac stable Pulmonary/Respiratory clear b/l ,small ptx right Abdomen/GI Nutrition soft,tolerating tube feeds Urinary Catheter Assessment Urinary Catheter: Yes Sanchez insert reason: Measure Accurate Output Vascular Central Line Catheter Vascular Central Line Catheter: Yes Assessment and Plan Plan ICP satisfactory level CPP as well neuro status improving HD stable monitor NA-off hyperosmolar therapy CT right to suction continue tube feeds discuss chemical DVT prophylaxis with Antoinette Wong MD Jan 31, 2017 16:22
[2017-01-31] MEDS: PANTOPRAZOLE SODIUM 40 MG VIAL IV SCH (17:17)
[2017-01-31] MEDS ORDERED: fentaNYL DRIP 250 ML IV SCH (22:15)
[2017-02-01] VITALS (19 sets, daily range): BP systolic 116–142; BP diastolic 58–65; PULSE 75–134; RESP 14–22; TEMP 98.9–101.9; O2SAT 100
[2017-02-01 00:29] LABS: POTASSIUM 3.5 MEQ/L (3.5-5.1)
[2017-02-01] MEDS: ICU - POTASSIUM CHLORIDE/AQUEOUS SOLN 40 MEQ/100 ML IVPB IV PRN (01:28)
[2017-02-01] MEDS: AMPICILLIN-SULBACTAM INJ 3 GM in SODIUM CHLORIDE 0.9% INJ 100 ML IV SCH ×4 (04:55→22:11)
--- NOTE | 2017-02-01 05:42 | RADRPT ---
EXAM DATE/TIME: 02/01/2017 04:44 [facility] COMPARISON: CHEST SINGLE AP, January 31, 2017, 8:03. INDICATIONS : Shortness of breath. MEDICAL HISTORY : None. SURGICAL HISTORY : None. ENCOUNTER: Subsequent ACUITY: 4 - 6 days PAIN SCORE: 0/10 LOCATION: Bilateral chest FINDINGS: A single AP portable semierect view of the chest was obtained and again demonstrates an endotracheal tube in place with the tip approximately 3 cm above the dima. The nasogastric tube remains in place with the tip in the stomach. There is a small bore right-sided chest tube in place. There is a right -sided central venous line remaining in place as well. There is an electronic device projected over t he right upper lobe. There is no visualized pneumothorax. The heart size is within normal limits with no evidence of mediastinal shift. There are multiple overlying electrocardiogram leads and oxygen tu javi. CONCLUSION: 1. Small bore right-sided chest tube remains in place with no visualized pneumothorax. 2. Artifact projected over the right lung apex limiting visualization. Kalin Tate MD on February 01, 2017 at 5:39 Board Certified Radiologist. This report was verified electronically.
[2017-02-01 05:46] LABS: AUTOMATED NEUTROPHIL # 7.6 TH/MM3 (1.8-7.7); BASOPHIL % 0.3 % (0.0-2.0); EOSINOPHIL # 0.1 TH/MM3 (0-0.4); EOSINOPHIL % 1.2 % (0.0-4.0); HEMATOCRIT 23.3 % (35.0-46.0); HEMO FLAGS DIFF FINAL; LYMPH % 16.1 % (9.0-44.0); LYMPHOCYTE # 1.6 TH/MM3 (1.0-4.8); MEAN CELL VOLUME 88.5 FL (80.0-100.0); MEAN CORPUSCULAR HEMOGLOBIN 31.5 PG (27.0-34.0); MEAN CORPUSCULAR HGB CONC 35.6 % (32.0-36.0); NEUT % 74.4 % (16.0-70.0); PLATELET COUNT 151 TH/MM3 (150-450); RED BLOOD COUNT 2.63 MIL/MM3 (4.00-5.30); RED CELL DISTRIBUTION WIDTH 16.4 % (11.6-17.2); WHITE BLOOD COUNT 10.2 TH/MM3 (4.0-11.0)
[2017-02-01 06:11] LABS: ALKALINE PHOSPHATASE 79 U/L (45-117); ALT (GPT) 42 U/L (10-53); ANION GAP 5 MEQ/L (5-15); AST (GOT) 31 U/L (15-37); BICARBONATE 27.7 MEQ/L (21.0-32.0); BLOOD UREA NITROGEN 11 MG/DL (7-18); CHLORIDE 114 MEQ/L (98-107); GLOMERULAR FILTRATION RATE 149 ML/MIN (>89); MAGNESIUM 1.9 MG/DL (1.5-2.5); POTASSIUM 4.5 MEQ/L (3.5-5.1); SODIUM (NA) 147 MEQ/L (136-145)
[2017-02-01] MEDS: LACTULOSE SYRUP 20 GM/30 ML CUP PO SCH ×4 (09:25→20:49)
[2017-02-01] MEDS: DOCUSATE SODIUM 50 MG/SENNA 8.6 MG TAB PO SCH ×2 (09:25→20:49)
[2017-02-01] MEDS: SODIUM CHLORIDE 0.9% FLUSH 10 ML FLUSH IV FLUSH SCH ×2 (09:26→20:48)
[2017-02-01] MEDS: levETIRAcetam INJ 500 MG in SODIUM CHLORIDE 0.9% INJ 100 ML IV SCH ×2 (09:26→20:48)
[2017-02-01] MEDS: CHLORHEXIDINE 0.12% (ORAL KIT) 15 ML CUP MT SCH ×2 (09:27→19:57)
[2017-02-01] MEDS ORDERED: FUROSEMIDE 40 MG/4 ML VIAL IV PUSH ONE (09:45)
--- NOTE | 2017-02-01 09:53 | HHI.NSPN ---
(Marques MorenoCash CHRIS) History Chief Complaint: Unable to obtain due to clinical condition. (Marques Moreno) Interval History 01/27: Patient is a middle-aged female who according to her family fell through a garage ceiling landing on the floor one-story down. Positive loss of consciousness. Patient was reportedly unresponsive immediately after the event. No seizure activity reported. She was GCS 3-4 at the scene and brought to [facility] emergency room as a trauma alert per EMS. She was intubated in the emergency room. She was noted to have a fixed dilated left pupil and pinpoint right pupil in the emergency room on initial evaluation. The undersigned reviewed the patient's CT scan images shortly after completion while the patient was in the CT scanning suite. Images revealed a large left hemispheric acute subdural hematoma with approximate 16 mm midline shift, significant effacement of the left ventricle and cisterns. Patient was taken emergently to the operating room from the CT scanning suite. 01/28: The patient is intubated and mechanically ventilated with propofol & fentanyl for sedation. She is on norepinephrine for blood pressure support which Nursing states she is titrating down. Nursing also reported that the patient did squeeze with her hands this morning. The patient was transfused this morning for a haemoglobin of 7.4. 01/29: The patient remains intubated and mechanically ventilated. The propofol & fentanyl drips have been off since 929 this morning. She is no longer on any vasopressors. Saline 3% is infusing. Nursing states she is withdrawing but has not had any eye opening. ICP has been running 4 to 5 on the ventriculostomy per Nursing and that the bolt pressure is not being used since it was reportedly not in proper position. Nursing also reports excessive drainage from the ventriculostomy. 01/30: Patient intubated on minimal sedation. Not opening eyes to verbal or tactile stimulation 01/31: Patient remains intubated on minimal sedation. At this point she is opening her eyes and tracking to verbal stimulation. 02/01: The patient continues to be intubated and mechanically ventilated. The fentanyl was discontinued this morning.Nursing reported that the left pupil appeared slightly larger this morning and that the ventriculostomy ICP has been ranging between 5 and 10. (Marques Moreno) System Review Comments Unable to obtain due to clinical condition. (Marques Moreno) Exam Results Vital Signs Date Time Temp Pulse Resp B/P Pulse Ox O2 Delivery O2 Flow Rate FiO2 02/01/17 06:00 76 02/01/17 04:11 100 40 02/01/17 04:00 98.9 14 122/58 Arterial Line 01/29/17 07:00 Mechanical Ventilator Intake and Output 01/31/17 01/31/17 02/01/17 08:00 16:00 00:00 Intake Total 1026 ml 1054 ml 709 ml Output Total 377 ml 1105 ml 800 ml Balance 649 ml -51 ml -91 ml (Marques Moreno) Physical Examination GENERAL: The patient is intubated and mechanically ventilated w/o any sedation. SKIN: Skin warm & dry. Multiple abrasions & ecchymosis to right forearm & left foot healing w/o complication, ecchymosis to left side of head. No rashes or other lesions noted. HEENT: Intact surgical dressing from craniotomy w/pressure monitoring bolt & ventriculostomy, THA drain to bulb suction w/serous drainage. PERRLA. Orally intubated. OGT. NECK: No JVD, trachea midline, right IJ central venous catheter. CARDIOVASCULAR: S1S2 w/RRR w/o M/G/R, radial & pedal pulses 2+ bilaterally, cap refill < 2 sec, no pedal edema. Monitor is sinus rhythm w/o any ectopy noted. RESPIRATORY: CTAB w/o W/R/R, equal excursion, nonlaboured, intubated and mechanically ventilated. GASTROINTESTINAL: Abdomen soft, positive bowel sounds, OGT w/enteral feeds. MUSCULOSKELETAL: Scattered abrasions & ecchymosis. No evident deformities or clubbing. NEUROLOGICAL: Moves BLE to stimuli, GCS 6T (E1 V1T M4). No response to voice or command. No eye opening spontaneously or to voice or to deep pain. PERRLA. Withdrew RLE>LLE to noxious stimuli, none to BUE, spontaneous movement RLE noted. Unable to assess sensation. 3% saline infusing at 30 mL. Ventriculostomy at 5 cm H2O pressure, ICP reported to be between 5 and 10, w/ 252 mL drainage which is pinkish CSF in collection chamber. [place] ICP 7 when seen. (Marques Moreno) Lab, Micro, Other Results Allergies Coded Allergies Type Severity Reaction Last Updated Verified No Known Allergies 01/31/17 No Recent Impressions Chest X-Ray 02/01/17 06 Signed Impressions: Service Date/Time: Wednesday, February 01, 2017 04:44 - CONCLUSION: 1. Small bore right-sided chest tube remains in place with no visualized pneumothorax. 2. Artifact projected over the right lung apex limiting visualization. Kalin Tate MD Chest X-Ray 01/31/17 08 Signed Impressions: Service Date/Time: Tuesday, January 31, 2017 08:03 - CONCLUSION: There is no pneumothorax. Israel Dominguez MD FACR Chest X-Ray 01/31/17599 Signed Impressions: Service Date/Time: Tuesday, January 31, 2017 05:00 - CONCLUSION: Small right- sided pneumothorax persists. Pigtail catheter overlies the right lung apex Sarabjit Landers MD Chest X-Ray 01/30/17599 Signed Impressions: Service Date/Time: Monday, January 30, 2017 04:27 - CONCLUSION: Lungs are clear Sarabjit Landers MD //// 06:00 18:00 06:00 18:00 06:00 18:00 Intake Total 2159 ml 1193 ml 1320 ml 1054 ml 1371 ml Output Total 1172 ml 551 ml 883 ml 1105 ml 1647 ml Balance 987 ml 642 ml 437 ml -51 ml -276 ml Intake IV Total 1559 ml 747 ml 542 ml 617 ml 623 ml Tube Feeding 540 ml 446 ml 778 ml 437 ml 748 ml Tube Irrigant 60 ml Output Urine Total 950 ml 450 ml 700 ml 1000 ml 1450 ml Gastric Drainage Total 0 ml 0 ml Chest Tube Drainage Total 20 ml 0 ml 3 ml 0 ml Drainage Total 202 ml 101 ml 180 ml 105 ml 197 ml # Bowel Movements 0 0 0 0 1 Laboratory Tests Test 01/29/17 01/29/17 01/30/17/29/17 12:00 18:00 00:15 05:30 Sodium Level 154 MEQ/L 154 MEQ/L 155 MEQ/L Blood Gas Puncture Site ART LINE Blood Gas Patient Temperature 98.6 Blood Gas HCO3 25 mmol/L Blood Gas Base Excess 0.5 mmol/L Blood Gas Oxygen Saturation 97 % Arterial Blood pH 7.39 Arterial Blood Partial 42 mmHg Pressure CO2 Arterial Blood Partial 195 mmHg Pressure O2 Arterial Blood Oxygen Content 12.1 Vol % Arterial Blood 1.1 % Carboxyhemoglobin Arterial Blood Methemoglobin 1.0 % Blood Gas Hemoglobin 8.5 G/DL Oxygen Delivery Device VENTILATOR Blood Gas Ventilator Setting AC/14/500/PEEP 5 Blood Gas Inspired Oxygen 40 % Test 01/30/17 01/30/17 01/30/17 01/30/17 05:45 12:00 18:00 23:34 White Blood Count 11.0 TH/MM3 Red Blood Count 2.66 MIL/MM3 Hemoglobin 8.2 GM/DL Hematocrit 23.4 % Mean Corpuscular Volume 87.9 FL Mean Corpuscular Hemoglobin 30.7 PG Mean Corpuscular Hemoglobin 35.0 % Concent Red Cell Distribution Width 17.8 % Platelet Count 99 TH/MM3 Mean Platelet Volume 8.3 FL Neutrophils (%) (Auto) 78.8 % Lymphocytes (%) (Auto) 12.8 % Monocytes (%) (Auto) 8.1 % Eosinophils (%) (Auto) 0.1 % Basophils (%) (Auto) 0.2 % Neutrophils # (Auto) 8.7 TH/MM3 Lymphocytes # (Auto) 1.4 TH/MM3 Monocytes # (Auto) 0.9 TH/MM3 Eosinophils # (Auto) 0.0 TH/MM3 Basophils # (Auto) 0.0 TH/MM3 CBC Comment AUTO DIFF Differential Comment AUTO DIFF CONFIRMED Platelet Estimate LOW Platelet Morphology Comment NORMAL Sodium Level 158 MEQ/L 157 MEQ/L 156 MEQ/L 158 MEQ/L Potassium Level 3.5 MEQ/L 3.2 MEQ/L Chloride Level 127 MEQ/L Carbon Dioxide Level 26.4 MEQ/L Anion Gap 5 MEQ/L Blood Urea Nitrogen 12 MG/DL Creatinine 0.48 MG/DL Estimat Glomerular Filtration 138 ML/MIN Rate Random Glucose 99 MG/DL Calcium Level 7.8 MG/DL Phosphorus Level 1.1 MG/DL 1.6 MG/DL Magnesium Level 2.2 MG/DL Total Bilirubin 0.7 MG/DL Aspartate Amino Transf 35 U/L (AST/SGOT) Alanine Aminotransferase 38 U/L (ALT/SGPT) Alkaline Phosphatase 61 U/L Total Protein 4.7 GM/DL Albumin 2.1 GM/DL Test 01/31/17 01/31/17 01/31/17 01/31/17 05:20 07:10 12:00 18:00 White Blood Count 9.8 TH/MM3 Red Blood Count 2.58 MIL/MM3 Hemoglobin 7.9 GM/DL Hematocrit 22.9 % Mean Corpuscular Volume 88.9 FL Mean Corpuscular Hemoglobin 30.8 PG Mean Corpuscular Hemoglobin 34.6 % Concent Red Cell Distribution Width 17.2 % Platelet Count 121 TH/MM3 Mean Platelet Volume 8.3 FL Neutrophils (%) (Auto) 77.5 % Lymphocytes (%) (Auto) 15.3 % Monocytes (%) (Auto) 5.9 % Eosinophils (%) (Auto) 0.8 % Basophils (%) (Auto) 0.5 % Neutrophils # (Auto) 7.6 TH/MM3 Lymphocytes # (Auto) 1.5 TH/MM3 Monocytes # (Auto) 0.6 TH/MM3 Eosinophils # (Auto) 0.1 TH/MM3 Basophils # (Auto) 0.0 TH/MM3 CBC Comment AUTO DIFF Differential Total Cells 100 Counted Neutrophils % (Manual) 69 % Band Neutrophils % 3 % Lymphocytes % 21 % Monocytes % 7 % Neutrophils # (Manual) 7.1 TH/MM3 Differential Comment FINAL DIFF MANUAL Platelet Estimate LOW Platelet Morphology Comment NORMAL Sodium Level 157 MEQ/L 154 MEQ/L 151 MEQ/L Potassium Level 3.4 MEQ/L Chloride Level 124 MEQ/L Carbon Dioxide Level 28.4 MEQ/L Anion Gap 5 MEQ/L Blood Urea Nitrogen 13 MG/DL Creatinine 0.47 MG/DL Estimat Glomerular Filtration 141 ML/MIN Rate Random Glucose 121 MG/DL Calcium Level 7.8 MG/DL Phosphorus Level 1.9 MG/DL Magnesium Level 2.0 MG/DL Total Bilirubin 0.6 MG/DL Aspartate Amino Transf 32 U/L (AST/SGOT) Alanine Aminotransferase 37 U/L (ALT/SGPT) Alkaline Phosphatase 65 U/L Total Protein 5.0 GM/DL Albumin 2.0 GM/DL Blood Gas Puncture Site ART LINE Blood Gas Patient Temperature 98.6 Blood Gas HCO3 27 mmol/L Blood Gas Base Excess 2.9 mmol/L Blood Gas Oxygen Saturation 98 % Arterial Blood pH 7.46 Arterial Blood Partial 38 mmHg Pressure CO2 Arterial Blood Partial 200 mmHg Pressure O2 Arterial Blood Oxygen Content 11.3 Vol % Arterial Blood 1.0 % Carboxyhemoglobin Arterial Blood Methemoglobin 0.9 % Blood Gas Hemoglobin 7.9 G/DL Oxygen Delivery Device VENTILATOR Blood Gas Ventilator Setting CPAP,PEEP5,PS10 Blood Gas Inspired Oxygen 40 % Test 01/31/17 02/01/17 23:45 05:09 Sodium Level 151 MEQ/L 147 MEQ/L Potassium Level 3.5 MEQ/L 4.5 MEQ/L Phosphorus Level 2.6 MG/DL White Blood Count 10.2 TH/MM3 Red Blood Count 2.63 MIL/MM3 Hemoglobin 8.3 GM/DL Hematocrit 23.3 % Mean Corpuscular Volume 88.5 FL Mean Corpuscular Hemoglobin 31.5 PG Mean Corpuscular Hemoglobin 35.6 % Concent Red Cell Distribution Width 16.4 % Platelet Count 151 TH/MM3 Mean Platelet Volume 8.4 FL Neutrophils (%) (Auto) 74.4 % Lymphocytes (%) (Auto) 16.1 % Monocytes (%) (Auto) 8.0 % Eosinophils (%) (Auto) 1.2 % Basophils (%) (Auto) 0.3 % Neutrophils # (Auto) 7.6 TH/MM3 Lymphocytes # (Auto) 1.6 TH/MM3 Monocytes # (Auto) 0.8 TH/MM3 Eosinophils # (Auto) 0.1 TH/MM3 Basophils # (Auto) 0.0 TH/MM3 CBC Comment DIFF FINAL Differential Comment Chloride Level 114 MEQ/L Carbon Dioxide Level 27.7 MEQ/L Anion Gap 5 MEQ/L Blood Urea Nitrogen 11 MG/DL Creatinine 0.45 MG/DL Estimat Glomerular Filtration 149 ML/MIN Rate Random Glucose 102 MG/DL Calcium Level 8.2 MG/DL Magnesium Level 1.9 MG/DL Total Bilirubin 1.0 MG/DL Aspartate Amino Transf 31 U/L (AST/SGOT) Alanine Aminotransferase 42 U/L (ALT/SGPT) Alkaline Phosphatase 79 U/L Total Protein 5.4 GM/DL Albumin 2.2 GM/DL Vital Signs Date Time Temp Pulse Resp B/P Pulse Ox O2 Delivery O2 Flow Rate FiO2 02/01/17 06:00 76 02/01/17 04:11 100 40 7/31/17 04:00 80 02/01/17 04:00 98.9 80 14 122/58 100 Arterial Line 02/01/17 04:00 40 02/01/17 02:00 76 02/01/17 00:54 100 40 02/01/17 00:00 40 02/01/17 00:00 77 02/01/17 00:00 99.5 77 14 125/60 100 01/31/17 22:07 100 40 01/31/17 22:07 100 40 01/31/17 22:00 88 01/31/17 20:00 40 01/31/17 20:00 110 01/31/17 20:00 99.6 110 17 131/62 100 01/31/17 18:00 79 01/31/17 16:00 90 01/31/17 16:00 40 01/31/17 16:00 99.0 90 19 136/64 100 01/31/17 15:51 100 40 01/31/17 14:00 96 01/31/17 12:00 99.0 105 16 122/62 100 01/31/17 12:00 80 122/62 01/31/17 12:00 105 01/31/17 12:00 40 01/31/17 11:58 100 40 01/31/17 10:00 84 01/31/17 08:19 40 01/31/17 08:07 100 40 01/31/17 08:07 100 40 01/31/17 08:00 40 01/31/17 08:00 80 136/62 01/31/17 08:00 99.6 84 25 136/62 100 01/31/17 08:00 89 01/31/17 06:00 75 01/31/17 04:50 100 40 01/31/17 04:00 99.6 77 14 128/56 100 01/31/17 04:00 77 01/31/17 04:00 40 01/31/17 04:00 80 128/56 01/31/17 02:00 86 01/31/17 01:28 100 40 01/31/17 00:00 99.6 77 14 118/58 100 01/31/17 00:00 80 01/31/17 00:00 40 01/31/17 00:00 80 118/55 01/30/17 22:00 77 01/30/17 20:32 100 40 01/30/17 20:00 94 01/30/17 20:00 100.5 94 14 138/66 100 01/30/17 20:00 40 01/30/17 20:00 94 138/66 01/30/17 16:00 40 01/30/17 16:00 98.5 87 14 135/64 100 01/30/17 16:00 92 135/64 01/30/17 15:44 100 40 01/30/17 12:00 92 131/64 01/30/17 12:00 98.9 91 14 131/64 100 01/30/17 12:00 40 01/30/17 08:14 100 40 01/30/17 08:00 92 123/62 01/30/17 08:00 40 01/30/17 08:00 98.9 84 14 126/62 100 01/30/17 04:50 100 40 01/30/17 04:00 40 01/30/17 04:00 99.7 92 14 114/62 100 01/30/17 04:00 92 114/62 01/30/17 00:20 100 40 01/30/17 00:00 100.0 92 14 110/60 100 01/30/17 00:00 92 110/60 01/30/17 00:00 40 01/29/17 21:01 100 40 01/29/17 20:00 108 01/29/17 20:00 92 126/60 01/29/17 20:00 100.4 92 14 126/60 100 01/29/17 20:00 40 01/29/17 18:00 114 01/29/17 17:12 100 40 01/29/17 16:00 40 01/29/17 16:00 99.2 119 17 126/55 100 01/29/17 16:00 119 01/29/17 14:00 114 01/29/17 12:09 100 40 01/29/17 12:00 40 01/29/17 12:00 99.2 89 14 140/70 100 01/29/17 12:00 89 01/29/17 10:00 94 (Marques Moreno) Medical Decision Making Impression and Plan Impression: 1. Severe acute left hemisphere subdural hematoma with severe midline shift and mass effect. 2. Right temporal bone fracture-nondisplaced Leukocytosis, resolved Anaemia, slight interval improvement (7.9=>8.3) Thrombocytopenia, interval resolution (121=>151) Sodium 147 Hypokalemia, resolved eGFR WNL Hypophosphatemia,resolved THA drain w/50 mL Ventriculostomy w/252 mL Patient with stable neurological response, still critical. POD #5 () s/p: 1. Left decompressive frontotemporoparietal craniotomy for evacuation of acute subdural hematoma. 2. Left frontal ventriculostomy catheter placement 3. Left frontal twist drill for intracranial pressure monitor placement Plan: Primary management per [facility]le Sorter/Trauma. Frequent neuro checks. Stat CT brain for worsening neuro status. Continuing external ventricular drain. Continue hypertonic saline to maintain sodium 145-154 range. Continuing ventilatory support and full sedation. Seizure prophylaxis. Ulcer prophylaxis. Non chemical DVT prophylaxis. CT brain in AM. (Marques Moreno) Attending Statement I have personally seen and examined the patient on the date of this note. Pertinent documentation and study results have been reviewed by the undersigned. I have personally developed the treatment plan and performed medical decision making. Agree with findings, exam, and treatment plan as noted above. Remains unresponsive on examination today. ICPs less than 10 Entry colostomy draining well. No real improvement in neurologic function over the past few days. Check follow-up CT scan in the morning. Raise ventriculostomy to 10 cm water. (Nic Bahena MD) Marques Moreno Feb 01, 2017 09:53 Nic Bahena MD Feb 01, 2017 20:12
--- NOTE | 2017-02-01 10:11 | HHI.CCPN ---
Subjective Remarks/Hospital Course 46-year-old female who according to her family fell through a garage ceiling landing on the floor one-story down. Positive loss of consciousness. Patient was reportedly unresponsive immediately after the event. No seizure activity reported. She was GCS 3-4 at the scene and brought to [facility] emergency room as a trauma alert per EMS. She was intubated in the emergency room. She was noted to have a fixed dilated left pupil and pinpoint right pupil in the emergency room on initial evaluation. The CT Images revealed a large left hemispheric acute subdural hematoma with approximate 16 mm midline shift, significant effacement of the left ventricle and cisterns. Patient was taken emergently to the operating room from the CT scanning suite. SUBJ 01/28/17: s/p Left decompressive frontotemporoparietal craniotomy for evacuation of acute subdural hematoma. Left frontal ventriculostomy catheter placement, and Left frontal twist drill for intracranial pressure monitor placement. ICP well controlled. Small to moderate line associated pneumothorax associated with central line placement. Started on Levophed to maintain MAP, CPP SUBJ 01/29: CT scan yesterday shows interval excellent evacuation of the subdural hemorrhage with improved midline shift from 17 mm to 4 mm. Neuro exam improving. Patient shakes her head to opened eyes couple times during night. Localizes to pain. ICP well controlled. Chest x-ray shows no residual pneumothorax 01/30: Remains intubated off pressors. Examination off sedation shows localizing 4, pupils are equal and reactive. Not following commands. Chest x- ray clear without pneumothorax 01/31: Neuro exam continues to improve. Opening eyes spontaneously and to pain. Localizes to pain 4 not following commands yet but shakes her head. Small apical pneumothorax most likely due to blockage and the pigtail-this was cleared we'll repeat chest x-ray 02/01: Opens eyes to sternal rub. Clearly weaker on the left side. Attempts to follow command on RUE on multiple requests, withdraws on left. Pneumothorax has resolved. Objective Vital Signs Date Time Temp Pulse Resp B/P Pulse Ox O2 Delivery O2 Flow Rate FiO2 02/01/17 06:00 76 02/01/17 04:11 100 40 02/01/17 04:00 98.9 14 122/58 Arterial Line 01/29/17 07:00 Mechanical Ventilator Intake and Output 01/31/17 01/31/17 02/01/17 08:00 16:00 00:00 Intake Total 1026 ml 1054 ml 709 ml Output Total 377 ml 1105 ml 800 ml Balance 649 ml -51 ml -91 ml Result Diagram: 02/01/17 0509 02/01/17 0509 Imaging Last 24 hours Impressions Thoracic Spine CT 01/27/171699 Signed Impressions: Service Date/Time: Friday, January 27, 2017 17:20 - CONCLUSION: 1. No fracture or subluxation. 2. Minimal subcutaneous emphysema seen within the upper neck likely related to patient's temporal bone fracture. Eb Guerin MD Pelvis X-Ray 01/27/171699 Signed Impressions: Service Date/Time: Friday, January 27, 2017 16:54 - CONCLUSION: 1. Left pubic rami fractures. Otoniel Crain MD Lumbar Spine CT 01/27/171699 Signed Impressions: Service Date/Time: Friday, January 27, 2017 17:20 - CONCLUSION: 1. No fracture or subluxation of the lumbar spine. 2. There are fractures of the right sacrum discussed in detail on CT the abdomen/pelvis. Eb Guerin MD Head CT 01/27/171699 Signed Impressions: Service Date/Time: Friday, January 27, 2017 17:20 - CONCLUSION: 1. Large acute subdural hematoma along the left frontal parietal and temporal lobes measuring 20 mm in greatest width with possible additional epidural component more superiorly. There is approximately 17 mm of subfalcine herniation to the right as well as diffuse effacement of the left cerebral sulci. 2. Acute right temporal bone fracture. 3. Fluid levels within the right maxillary sinus and left sphenoid sinus. Juan Carlos Jc MD Chest X-Ray 01/27/171699 Signed Impressions: Service Date/Time: Friday, January 27, 2017 16:54 - CONCLUSION: 1. Acute fracture involving the right scapula. 2. Endotracheal tube in good position 3 cm above the dima. Juan Carlos cJ MD Chest CT 01/27/171699 Signed Impressions: Service Date/Time: Friday, January 27, 2017 17:25 - CONCLUSION: 1. Comminuted fracture involving the right scapula. 2. Minimal posterior atelectatic changes bilaterally. Juan Carlos Jc MD Cervical Spine CT 01/27/17 1700 Signed Impressions: Service Date/Time: Friday, January 27, 2017 17:24 - CONCLUSION: 1. No acute fracture or prevertebral soft tissue swelling. 2. Straightening of the normal cervical lordosis. 3. Cervical spondylosis from C3 through C6. 4. Mild bilateral foraminal narrowing at C3-4, C4-5 and C5-6. Juan Carlos Jc MD Abdomen/Pelvis CT 01/27/17 1700 Signed Impressions: Service Date/Time: Friday, January 27, 2017 17:25 - CONCLUSION: 1. Acute fractures along the right sacrum as well as the left superior and inferior pubic rami. 2. No intra-abdominal trauma identified. Juan Carlos Jc MD Radius/Ulna X-Ray 01/27/17 0000 Signed Impressions: Service Date/Time: Friday, January 27, 2017 16:54 - CONCLUSION: Soft tissue swelling involving the right mid forearm without underlying radial or ulnar fracture. Juan Carlos Jc MD Chest X-Ray 01/27/17 0000 Signed Impressions: Service Date/Time: Friday, January 27, 2017 21:57 - CONCLUSION: No acute disease. Adequate placement of right jugular central line. Questionable tiny right apical pneumothorax. Followup studies recommended. Eb Guerin MD Objective Remarks GENERAL: Well-nourished, well-developed patient. Sedation on hold SKIN: Warm and dry. HEAD: Status post craniotomy circumferential dressing in place, EVD in place, at 5, 252 ml in 24 hours EYES: No scleral icterus. No injection or drainage. Pupils 3 mm briskly reactive. NECK: Supple, trachea midline. No JVD or lymphadenopathy. CARDIOVASCULAR: Regular rate and rhythm without murmurs, gallops, or rubs. RESPIRATORY: Breath sounds equal bilaterally. No accessory muscle use. Right anterior pigtail to wall suction GASTROINTESTINAL: Abdomen soft, non-tender, nondistended. MUSCULOSKELETAL: No cyanosis, or edema. BACK: Nontender without obvious deformity. No CVA tenderness. EXTREMITIES: No clubbing cyanosis or edema NEURO: Pupils 3 mm briskly reactive. Opens eyes to pain and sometimes spontaneously. Intermittently following with right upper extremity and purposeful, withdraws bilateral lower extremity. Slight withdrawal of left upper extremity. Clearly left side weaker than right A/P Assessment and Plan NEURO: Severe acute left hemisphere subdural hematoma with midline shift and mass effect Right temporal bone fracture-nondisplaced - Status post emergent evacuation, EVD and ICP monitor placement by Dr. Bahena - CT head 01/28-excellent evacuation of the subdural hemorrhage with significant improvement in midline shift - F/U CT head 02/02 - Monitor ICP-well controlled. Monitor EVD output - Keep Na 145-150, Mannitol if needed - Keppra for sz prophylaxis - Neuro exam, steadily improving, L hemiparesis present RESP: Acute Respiratory failure Iatrogenic pneumothorax - Intubated for airway protection. No weaning until neurologically improved, continue SBT without extubation - Continue mechanical ventilation, End-tidal CO2 monitoring keep 30-35 - Placed R right pigtail chest tube, with resolution of pneumothorax - DuoNeb every 2 hours when necessary CVS: Hypertension - off Levophed now hypertensive - Cardene infusion and when necessary labetalol and hydralazine to keep systolic blood pressure less than 140-150 - Flow trac monitoring GI: - Tube feeds, IV Protonix - Lactulose QID - Dulcolax suppository - Had BM overnight : - Monitor UO. Monitor BUN/creatinine ID: - Patient has right temporal bone fracture with fluid in mastoid air cells - Empiric Unasyn Endo: - Electrolyte replacement per protocol MSK: Scapular, pelvic, and sacral fractures - No indication for surgery - Conservative and supportive care DVT GI prophylaxis - Teds SCDs - No pharmacological DVT prophylaxis - Protonix Critical Care: The total critical care time was 35 minutes. Time to perform other separately billable procedures not included in the critical care time. Oscar Norman MD Feb 01, 2017 10:11
[2017-02-01] MEDS: VALPROIC ACID SYRUP 250 MG/5 ML UDC PO SCH ×2 (10:13→20:48)
[2017-02-01] MEDS: BISACODYL 10 MG SUPP RECTAL SCH (10:14)
--- NOTE | 2017-02-01 11:59 | HHI.PR ---
Neuropsych Emotional Emotional: UnabletoAssess: Emotional, Anxious/Fearful, Depressed/Sad, Hostile/ Resentful, Irritable/Angry/Frustrate, Labile, Constricted/Blunted Behavior Behavior: Unable to Asses: Behavior, Coping/Acceptance, Cooperative w/ Treatment, Motivation, Frustration Tolerance/[place], Impulsive/Agitated, Suicidal/ Homicidal Risk Cognitive Cognitive: Unable to Asses: Cognitive, Attention/Concentration, Confused/ Orientation, Insight/Awareness, Judgement/Problem-Solving, Memory Psychosocial Psychosocial: Unable to Asses: Psychosocial, Family/Other Adjustment, Realistic Expectation, Self-Esteem/Confidence Progress Notes/Response to Tx Contents of Sessions: Adjustment, Level of Consciousness Time with Patient: 15 minutes Premorbid psychological status Premorbid Cognitive, Emotional and Behavioral Status: Deferred. No family present to ascertain premorbid abilities. Behavioral Reactions of Patient and Family/Support System: Deferred. The patients family is likley experiencing ongoing issues of adjustment given the nature of the injury, and this aspect of recovery will require ongoing monitoring. Emotional/Behavioral Status of Patient and Family/Support System: Deferred. Pertinent issues, if appropriate to this patients clinical care, are described in detail above. Maximizing acute care outcome It is recommended that the patient be monitored for emergent behavioral impulsivity as the medical condition evolves. This patients neuropathological challenges may limit their rehabilitation potential going forward, and these challenges will require specialized therapeutic skills to maximize outcome. Additionally, the patients family is experiencing ongoing issues of adjustment given the traumatic nature of the injury, and they may benefit from ongoing psychological assistance. Anticipated Problems Ongoing areas of concern will include behavioral impulsivity, lack of insight and judgment, which is expected to improve with time and treatment. Presently , the patient unresponsive, intubated and sedated. Treatment Plan This clinician will continue to follow with you throughout the course of this patients acute care treatment, and I will be available to meet with the patient s family/support system to facilitate their understanding and the ongoing care of their family member. The goals of neuropsychological intervention shall be both educational and supportive to the family/support system as is deemed clinically appropriate. [facility] Level: III:Localized response-total assist Impression This is a 46 year old woman s/p TBI 2T fall on 01/27/2017, with large left temporoparietal SDH, right basal skull fracture through petrous bone with extrusion of brain matter on the right, and is s/p DC/ventriculostomy placement. 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 This is day 5 post injury. She reportedly opens her eyes intermittently and follows intermittently. She is on titrating sedation and is intubated. Trauma team consensus is to start Valproic Acid 250 BID to ease into the process of agitation management which is expected to be an issue in the next several days. Presently, she is considered a Rancho III. I will continue to follow. Luis Murphy PhD Feb 01, 2017 11:59 am
--- NOTE | 2017-02-01 15:02 | MG ---
cc: JUAN CARSON M.D. Lab No: [id number] Date: 02/01/2017 Age: Sex: F Race: TECHNIQUE 17-channel EEG. DESCRIPTION: Background rhythm is generally slow at roughly 3-4 Hz. It seems to be slower over the left hemisphere than over the right hemisphere. There is occasional sharp activity identified over the left hemisphere. It is not truly epileptiform but it is sharp in contour, no other lateralizing features are seen. INTERPRETATION Abnormal study consistent with diffuse encephalopathy, rule out left hemisphere structural lesion. There is some sharp activity identified over the left hemisphere as well. MD ALTHEA Núñez/SANTOSH /2:33 PM /2:57 PM
[2017-02-01] MEDS: SODIUM CHLORIDE IV SCH (15:20)
[2017-02-01] MEDS: SODIUM CHLORID 0.9% IV SCH (15:20)
--- NOTE | 2017-02-01 15:50 | HHI.CCPN ---
Subjective Brief History severe traumatic brain injury. [place] coma scale 3. Large left temporoparietal subdural hematoma, right basal skull fracture through the petrous bone with extrusion of some brain matter on the right, fracture of the right scapula, left superior inferior ramus pubic fracture with minimal displacement and a right sacral fracture. Patient will be taken immediately to the operating room. Patient underwent a left frontotemporal craniectomy with evacuation of subdural hematoma and placement of ventriculostomy Orthopedic consult was obtained and no further operative management will be instituted 24 Hour Review/Hospital Course Patient has been in the ICU overnight intubated and ventilated 01/29/17 Neurologic status is unchanged ICP remains low Pupils are equal about 2 mm and somewhat reactive Patient remains on propofol fentanyl Hypertonic 3% saline at 30 cc/h Keppra No clinical suspicion of seizures 01/30/17 Patient is withdrawing all 4 extremities and localizes and opened her eyes ICP remains low around 8 mmHg Removed from propofol and fentanyl or any form of sedation Sodium 158 and hypertonic saline removed Remains intubated and ventilated and starting to pickup on her own the rate 01/31 open eyes spontaneously-move extremities ICP around 10 mmHg ventriculostomy 110cc/8hrs tolerating CPAP 02/01/17 ICP remains low around 8-10 mmHg Probably ventriculostomy can be safely removed soon as per neurosurgery Patient opening eyes and trying to follow some commands moves both lower extremities and right arm but very little in the left arm Patient is definitely neurologically improving Tolerated CPAP for about 4 hours Objective Vital Signs Date Time Temp Pulse Resp B/P Pulse Ox O2 Delivery O2 Flow Rate FiO2 02/01/17 14:00 128 02/01/17 13:05 100 40 02/01/17 12:00 101.3 22 127/59 01/29/17 07:00 Mechanical Ventilator Intake and Output 01/31/17 01/31/17 02/01/17 08:00 16:00 00:00 Intake Total 1026 ml 1054 ml 709 ml Output Total 377 ml 1105 ml 800 ml Balance 649 ml -51 ml -91 ml Result Diagram: 02/01/17 0509 02/01/17 0509 Imaging Last 24 hours Impressions Chest X-Ray 02/01/17 0600 Signed Impressions: Service Date/Time: Wednesday, February 01, 2017 04:44 - CONCLUSION: 1. Small bore right-sided chest tube remains in place with no visualized pneumothorax. 2. Artifact projected over the right lung apex limiting visualization. Kalin Tate MD Exam SKULL SPLITTER Patient is slowly improving opening eyes and trying to follow commands withdrawing lower extremities and right arm Hemodynamic/Cardiac Hemodynamically intact Pulmonary/Respiratory Bilateral breath sounds fully respiratory supported Chest tube no drainage and no leak We will gradually wean the ventilator CPAP trials while beneficial for the pulmonary function at this point are not indicative patient's ability to extubate or she cannot protect upper airway We'll see how the patient does neurologically by the end of the week and then possibly schedule for tracheostomy if patient does not wake up This is early in the course and hopefully patient will improve Abdomen/GI Nutrition Abdomen soft enteral feeds tolerated Renal/I&O Renal function preserved good urine output slightly swollen so we'll give a little Lasix to mobilize the third space Assessment and Plan Plan ICP satisfactory level CPP as well neuro status improving HD stable monitor NA-off hyperosmolar therapy CT right to suction continue tube feeds discuss chemical DVT prophylaxis with NS Attestation Critical care 40 minutes Noemy Philip MD Feb 01, 2017 15:50
[2017-02-01] MEDS: PANTOPRAZOLE SODIUM 40 MG VIAL IV SCH (17:49)
[2017-02-01] MEDS: ACETAMINOPHEN 325 MG TAB PO PRN (20:10)
--- NOTE | 2017-02-01 20:55 | HHI.PR ---
Subjective Subjective Comments Intubated on vent. No sedation Allergies: Coded Allergies: No Known Allergies (Unverified , 01/31/17) per Review of Systems All other ROS: Unable to obtain Exam I&O / VS 01/31/17 01/31/17 02/01/17 14:59 22:59 06:59 Intake Total 1054 ml 709 ml 662 ml Output Total 1105 ml 800 ml 847 ml Balance -51 ml -91 ml -185 ml Intake IV Total 617 ml 329 ml 294 ml Tube Feeding 437 ml 380 ml 368 ml Output Urine Total 1000 ml 700 ml 750 ml Gastric Drainage Total 0 ml Chest Tube Drainage Total 0 ml 0 ml Drainage Total 105 ml 100 ml 97 ml # Bowel Movements 0 0 1 Vital Signs Date Time Temp Pulse Resp B/P Pulse Ox O2 Delivery O2 Flow Rate FiO2 02/01/17 18:00 134 02/01/17 16:59 100 40 02/01/17 16:00 100.8 123 18 116/59 100 02/01/17 16:00 40 02/01/17 16:00 123 02/01/17 14:00 128 02/01/17 13:05 100 40 02/01/17 12:00 113 02/01/17 12:00 101.3 113 22 127/59 100 02/01/17 12:00 40 02/01/17 10:43 100 40 02/01/17 10:00 80 02/01/17 08:00 99.7 75 15 142/65 100 02/01/17 08:00 75 02/01/17 08:00 40 02/01/17 06:00 76 02/01/17 04:11 100 40 02/01/17 04:00 80 02/01/17 04:00 98.9 80 14 122/58 100 Arterial Line 02/01/17 04:00 40 02/01/17 02:00 76 02/01/17 00:54 100 40 02/01/17 00:00 40 02/01/17 00:00 77 02/01/17 00:00 99.5 77 14 125/60 100 01/31/17 22:07 100 40 01/31/17 22:07 100 40 01/31/17 22:00 88 General: Intubated, No acute distress, Other (Ventriculostomy in place; no bone flap in place left) Respiratory: Other (Right chest tube) Musculoskeletal: ROM (Within functional limits) Neurologic: Other (Not following commands but some spontaneous movement right lower extremity and left upper extremity nonpurposeful) Clonus: Negative Exam Comments SCDs in place Sanchez in place Objective Micro and Labs Laboratory Tests Test 01/31/17 02/01/17 02/01/17 23:45 05:09 20:00 Sodium Level 151 147 144 Potassium Level 3.5 4.5 Phosphorus Level 2.6 White Blood Count 10.2 Red Blood Count 2.63 Hemoglobin 8.3 Hematocrit 23.3 Mean Corpuscular Volume 88.5 Mean Corpuscular Hemoglobin 31.5 Mean Corpuscular Hemoglobin 35.6 Concent Red Cell Distribution Width 16.4 Platelet Count 151 Mean Platelet Volume 8.4 Neutrophils (%) (Auto) 74.4 Lymphocytes (%) (Auto) 16.1 Monocytes (%) (Auto) 8.0 Eosinophils (%) (Auto) 1.2 Basophils (%) (Auto) 0.3 Neutrophils # (Auto) 7.6 Lymphocytes # (Auto) 1.6 Monocytes # (Auto) 0.8 Eosinophils # (Auto) 0.1 Basophils # (Auto) 0.0 CBC Comment DIFF FINAL Differential Comment Chloride Level 114 Carbon Dioxide Level 27.7 Anion Gap 5 Blood Urea Nitrogen 11 Creatinine 0.45 Estimat Glomerular Filtration 149 Rate Random Glucose 102 Calcium Level 8.2 Magnesium Level 1.9 Total Bilirubin 1.0 Aspartate Amino Transf 31 (AST/SGOT) Alanine Aminotransferase 42 (ALT/SGPT) Alkaline Phosphatase 79 Total Protein 5.4 Albumin 2.2 Assessment and Plan Diagnosis: (1) Traumatic brain injury Encounter type: subsequent encounter Assessment 1. Traumatic brain injury 01/27/17 status post fall including large acute subdural hematoma left frontal temporal parietal area measuring 20 mm with possible epidural components superiorly; 7 mm of subfalcine herniation to the right with diffuse effacement of the left cerebral sulci and right temporal fracture status post left decompressive frontotemporal parietal craniotomy with evacuation of subdural hematoma with placement of ICP monitor and ventriculostomy. Now Rancho level 3 2. Associated injuries include: -Left superior and inferior pubic rami fracture -Right sacral fracture -Right scapular fracture Plan 1. PT/OT providing range of motion. Patient currently dependent for all mobility and ADLs 2. Patient will need speech therapy. Will follow to initiate 3. Appreciate neuropsychology consult and follow-up 4. SCDs in place for VTE prophylaxis 5. Continue to reposition every 2 hours to protect skin 6. Patient will likely need ongoing inpatient rehabilitation at discharge. Will follow in conjunction with case management 7. Will continue follow while hospitalized and at discharge. Terri Springer MD Feb 01, 2017 20:55
[2017-02-02] VITALS (20 sets, daily range): BP systolic 118–161; BP diastolic 56–64; PULSE 88–132; RESP 16–21; TEMP 99.6–103.1; O2SAT 94–100
--- NOTE | 2017-02-02 04:45 | RADRPT ---
EXAM DATE/TIME: 02/02/2017 04:24 [place] COMPARISON: CT BRAIN W/O CONTRAST, January 28, 2017, 15:14. INDICATIONS : Followup intracranial hemorrhage.. Status post craniotomy. RADIATION DOSE: 56.35 CTDIvol (mGy) MEDICAL HISTORY : None SURGICAL HISTORY : Craniotomy. ENCOUNTER: Subsequent ACUITY: 4 - 6 days PAIN SCALE: Non-responsive LOCATION: cranial TECHNIQUE: Multiple contiguous axial images were obtained of the head. Using automated exposure control and adj ustment of the mA and/or kV according to patient size, radiation dose was kept as low as reasonably a chievable to obtain optimal diagnostic quality images. DICOM format image data is available electro nically for review and comparison. FINDINGS: Air-fluid level remains in the right maxillary sinus and sphenoid sinuses. Fluid is again noted in the mastoid air cells bilaterally. The right temporal bone fracture is again noted. Postsurgical c hanges are again noted status post left frontal and parietal craniotomy. The subdural hematoma along the left parietal lobe is not significant changed. There is mildly increased surrounding edema. There is mildly increased subtle edema in the right temporal lobe. The ventricular shunt catheter remains in place without significant change. There is no hydrocephalus. There is no significant midline shift now identified. The posterior fossa and brainstem remain unremarkable. Subdural hemorrhage remains a long the left side of the tentorium. CONCLUSION: 1. No significant change in the subdural hemorrhage with mild increase in surrounding edema 2. Small area of edema again noted in the right temporal lobe which is mildly more conspicuous. 3. No new hemorrhage or mass effect. There is no significant midline shift now noted. 4. TheThe ventricular shunt catheter remains in place with no hydrocephalus. Kalin Tate MD on February 02, 2017 at 4:38 Board Certified Radiologist. This report was verified electronically.
[2017-02-02] MEDS: SODIUM CHLORIDE IV SCH (06:33)
[2017-02-02] MEDS: AMPICILLIN-SULBACTAM INJ 3 GM in SODIUM CHLORIDE 0.9% INJ 100 ML IV SCH ×4 (06:33→23:55)
[2017-02-02] MEDS: SODIUM CHLORID 0.9% IV SCH (06:33)
[2017-02-02 06:37] LABS: AUTOMATED NEUTROPHIL # 11.6 TH/MM3 (1.8-7.7); BASOPHIL % 0.2 % (0.0-2.0); EOSINOPHIL # 0.2 TH/MM3 (0-0.4); EOSINOPHIL % 1.5 % (0.0-4.0); HEMATOCRIT 27.3 % (35.0-46.0); HEMO FLAGS DIFF FINAL; LYMPH % 11.6 % (9.0-44.0); LYMPHOCYTE # 1.7 TH/MM3 (1.0-4.8); MEAN CELL VOLUME 89.7 FL (80.0-100.0); MEAN CORPUSCULAR HEMOGLOBIN 30.7 PG (27.0-34.0); MEAN CORPUSCULAR HGB CONC 34.3 % (32.0-36.0); MONO % 8.4 % (0.0-8.0); NEUT % 78.3 % (16.0-70.0); PLATELET COUNT 203 TH/MM3 (150-450); RED BLOOD COUNT 3.04 MIL/MM3 (4.00-5.30); RED CELL DISTRIBUTION WIDTH 16.2 % (11.6-17.2); WHITE BLOOD COUNT 14.8 TH/MM3 (4.0-11.0)
[2017-02-02 06:43] LABS: ANION GAP 9 MEQ/L (5-15); AST (GOT) 29 U/L (15-37); BICARBONATE 26.5 MEQ/L (21.0-32.0); BLOOD UREA NITROGEN 12 MG/DL (7-18); CHLORIDE 109 MEQ/L (98-107); GLOMERULAR FILTRATION RATE 166 ML/MIN (>89); MAGNESIUM 2.2 MG/DL (1.5-2.5); POTASSIUM 3.6 MEQ/L (3.5-5.1); SODIUM (NA) 144 MEQ/L (136-145)
[2017-02-02 06:45] LABS: ALT (GPT) 37 U/L (10-53)
[2017-02-02 06:47] LABS: ALKALINE PHOSPHATASE 86 U/L (45-117); TOTAL BILIRUBIN ADULT 1.1 MG/DL (0.2-1.0)
[2017-02-02] MEDS: DOCUSATE SODIUM 50 MG/SENNA 8.6 MG TAB PO SCH ×2 (09:00→20:35)
[2017-02-02] MEDS: BISACODYL 10 MG SUPP RECTAL SCH (09:00)
[2017-02-02] MEDS: LACTULOSE SYRUP 20 GM/30 ML CUP PO SCH ×2 (09:00→12:05)
[2017-02-02] MEDS: VALPROIC ACID SYRUP 250 MG/5 ML UDC PO SCH ×2 (09:55→20:36)
[2017-02-02] MEDS: SODIUM CHLORIDE 0.9% FLUSH 10 ML FLUSH IV FLUSH SCH ×2 (09:55→20:36)
[2017-02-02] MEDS: levETIRAcetam INJ 500 MG in SODIUM CHLORIDE 0.9% INJ 100 ML IV SCH ×2 (09:55→20:36)
[2017-02-02] MEDS: CHLORHEXIDINE 0.12% (ORAL KIT) 15 ML CUP MT SCH ×2 (09:56→20:36)
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
--- NOTE | 2017-02-02 12:48 | HHI.CCPN ---
Subjective Remarks/Hospital Course 46-year-old female who according to her family fell through a garage ceiling landing on the floor one-story down. Positive loss of consciousness. Patient was reportedly unresponsive immediately after the event. No seizure activity reported. She was GCS 3-4 at the scene and brought to [facility] emergency room as a trauma alert per EMS. She was intubated in the emergency room. She was noted to have a fixed dilated left pupil and pinpoint right pupil in the emergency room on initial evaluation. The CT Images revealed a large left hemispheric acute subdural hematoma with approximate 16 mm midline shift, significant effacement of the left ventricle and cisterns. Patient was taken emergently to the operating room from the CT scanning suite. SUBJ 01/28/17: s/p Left decompressive frontotemporoparietal craniotomy for evacuation of acute subdural hematoma. Left frontal ventriculostomy catheter placement, and Left frontal twist drill for intracranial pressure monitor placement. ICP well controlled. Small to moderate line associated pneumothorax associated with central line placement. Started on Levophed to maintain MAP, CPP 01/29: CT scan yesterday shows interval excellent evacuation of the subdural hemorrhage with improved midline shift from 17 mm to 4 mm. Neuro exam improving. Patient shakes her head to opened eyes couple times during night. Localizes to pain. ICP well controlled. Chest x-ray shows no residual pneumothorax 01/30: Remains intubated off pressors. Examination off sedation shows localizing 4, pupils are equal and reactive. Not following commands. Chest x- ray clear without pneumothorax 01/31: Neuro exam continues to improve. Opening eyes spontaneously and to pain. Localizes to pain 4 not following commands yet but shakes her head. Small apical pneumothorax most likely due to blockage and the pigtail-this was cleared we'll repeat chest x-ray 02/01: Opens eyes to sternal rub. Clearly weaker on the left side. Attempts to follow command on RUE on multiple requests, withdraws on left. Pneumothorax has resolved. Subjective: 02/02 CT scan with worsening L parietal edema. Off continuous sedation; gets intermittent low dose fentanyl boluses. Opens eyes to sternal rub. Spontaneously moves BLE, RUE. Localizes on right, does not follow commands during my exam. CT was placed to water seal per trauma. Xray hand ordered due to L hand ecchymosis. Tolerating tube feeds and CPAP. ICP 5-10, Ventric +10 cm. Objective Vital Signs Date Time Temp Pulse Resp B/P Pulse Ox O2 Delivery O2 Flow Rate FiO2 02/02/17 10:00 120 02/02/17 08:46 100 40 02/02/17 08:00 100.5 20 161/60 01/29/17 07:00 Mechanical Ventilator Intake and Output 02/01/17 02/01/17 02/02/17 08:00 16:00 00:00 Intake Total 662 ml 946 ml 780 ml Output Total 847 ml 3862 ml 2660 ml Balance -185 ml -2916 ml -1880 ml Result Diagram: 02/02/17 0500 02/02/17 0500 Imaging Last 24 hours Impressions Thoracic Spine CT 01/27/171699 Signed Impressions: Service Date/Time: Friday, January 27, 2017 17:20 - CONCLUSION: 1. No fracture or subluxation. 2. Minimal subcutaneous emphysema seen within the upper neck likely related to patient's temporal bone fracture. Eb Guerin MD Pelvis X-Ray 01/27/171699 Signed Impressions: Service Date/Time: Friday, January 27, 2017 16:54 - CONCLUSION: 1. Left pubic rami fractures. Otoniel Crain MD Lumbar Spine CT 01/27/171699 Signed Impressions: Service Date/Time: Friday, January 27, 2017 17:20 - CONCLUSION: 1. No fracture or subluxation of the lumbar spine. 2. There are fractures of the right sacrum discussed in detail on CT the abdomen/pelvis. Eb Guerin MD Head CT 01/27/171699 Signed Impressions: Service Date/Time: Friday, January 27, 2017 17:20 - CONCLUSION: 1. Large acute subdural hematoma along the left frontal parietal and temporal lobes measuring 20 mm in greatest width with possible additional epidural component more superiorly. There is approximately 17 mm of subfalcine herniation to the right as well as diffuse effacement of the left cerebral sulci. 2. Acute right temporal bone fracture. 3. Fluid levels within the right maxillary sinus and left sphenoid sinus. Juan Carlos Jc MD Chest X-Ray 01/27/171699 Signed Impressions: Service Date/Time: Friday, January 27, 2017 16:54 - CONCLUSION: 1. Acute fracture involving the right scapula. 2. Endotracheal tube in good position 3 cm above the dima. Juan Carlos Jc MD Chest CT 01/27/17 1700 Signed Impressions: Service Date/Time: Friday, January 27, 2017 17:25 - CONCLUSION: 1. Comminuted fracture involving the right scapula. 2. Minimal posterior atelectatic changes bilaterally. Juan Carlos Jc MD Cervical Spine CT 01/27/17 1700 Signed Impressions: Service Date/Time: Friday, January 27, 2017 17:24 - CONCLUSION: 1. No acute fracture or prevertebral soft tissue swelling. 2. Straightening of the normal cervical lordosis. 3. Cervical spondylosis from C3 through C6. 4. Mild bilateral foraminal narrowing at C3-4, C4-5 and C5-6. Juan Carlos Jc MD Abdomen/Pelvis CT 01/27/17 1700 Signed Impressions: Service Date/Time: Friday, January 27, 2017 17:25 - CONCLUSION: 1. Acute fractures along the right sacrum as well as the left superior and inferior pubic rami. 2. No intra-abdominal trauma identified. Juan Carlos Jc MD Radius/Ulna X-Ray 01/27/17 0000 Signed Impressions: Service Date/Time: Friday, January 27, 2017 16:54 - CONCLUSION: Soft tissue swelling involving the right mid forearm without underlying radial or ulnar fracture. Juan Carlos Jc MD Chest X-Ray 01/27/17 0000 Signed Impressions: Service Date/Time: Friday, January 27, 2017 21:57 - CONCLUSION: No acute disease. Adequate placement of right jugular central line. Questionable tiny right apical pneumothorax. Followup studies recommended. Eb Guerin MD Objective Remarks GENERAL: Well-nourished, well-developed patient. Off continuous sedation. SKIN: Warm and dry. HEAD: Status post craniotomy circumferential dressing in place, EVD in place + 10cm 246 ml output 24 hours. THA serosanginous, 60 ml output. EYES: No scleral icterus. No injection or drainage. Pupils 3 mm briskly reactive. NECK: Supple, trachea midline. No JVD or lymphadenopathy. CARDIOVASCULAR: Regular rate and rhythm without murmurs, gallops, or rubs. RESPIRATORY: Breath sounds equal bilaterally. No accessory muscle use. Right anterior pigtail to water seal. No airleak. Outpu 13 ml. GASTROINTESTINAL: Abdomen soft, non-tender, nondistended. MUSCULOSKELETAL: No cyanosis, or edema. EXTREMITIES: No clubbing cyanosis or edema. Ecchymosis over left hand. Palpable radial pulses bilaterally. NEURO: Pupils 3 mm briskly reactive. Opens eyes to pain and sometimes spontaneously. Localizes right upper extremity. Does not follow commands for me. Withdraws bilateral lower extremity (LLE weaker). Slight withdrawal of left upper extremity. Clearly left side weaker than right A/P Assessment and Plan NEURO: Severe acute left hemisphere subdural hematoma with midline shift and mass effect Right temporal bone fracture-nondisplaced - Status post emergent evacuation, EVD and ICP monitor placement by Dr. Bahena - CT head 01/28-excellent evacuation of the subdural hemorrhage with significant improvement in midline shift - F/U CT head 02/02 - L parietal edema appears slightly increased. R temporal lobe edema persists. No midline shift. - Monitor ICP-well controlled. Monitor EVD output - Keep Na 145-150, 3% NaCl @ 30 ml/hr. Will increase to 40 mL/hr. Serial sodium q6 hours. - Keppra for sz prophylaxis. On depaken 250 bid per trauma surgery. - Neuro exam, steadily improving, L hemiparesis present RESP: Acute Respiratory failure Iatrogenic pneumothorax - Intubated for airway protection. No weaning until neurologically improved, continue SBT without extubation - Continue mechanical ventilation, End-tidal CO2 monitoring keep 30-35 - Placed R right pigtail chest tube 01/28, with resolution of pneumothorax. Now to water seal. Followup CXR in am. - DuoNeb every 2 hours when necessary CVS: Hypertension - off Levophed now hypertensive - When ecessary labetalol and hydralazine to keep systolic blood pressure less than 150 GI: -Vital 1.5 @ 50 mL per hour per nutrition recommendations., IV Protonix - Having multiple bowel movements. Hold lactulose FEN/RENAL : - Monitor UO. Monitor BUN/creatinine ID: - Patient has right temporal bone fracture with fluid in mastoid air cells - Patient has been on empiric unasyn. Temp max 101.9. WBC 14.8. Will panculture. Add vancomycin if clinical worsening. Endo: - Electrolyte replacement per protocol MSK: Scapular, pelvic, and sacral fractures - No indication for surgery - Conservative and supportive care DVT GI prophylaxis - Teds SCDs - Start lovenox 40 mg subcut today, ok per discussion with Dr. Bahena.. - Protonix Level 3 Natalia Headley MD Feb 02, 2017 12:48 Natalia Headley MD Feb 02, 2017 12:48 Natalia Headley MD Feb 02, 2017 12:48
--- NOTE | 2017-02-02 14:48 | RADRPT ---
EXAM DATE/TIME: 02/02/2017 13:54 [facility] COMPARISON: CHEST SINGLE AP, February 01, 2017, 4:44. INDICATIONS : Follow up trauma, evaluate pneumothorax MEDICAL HISTORY : intracranial hemorrhage SURGICAL HISTORY : Craniotomy. ENCOUNTER: Subsequent ACUITY: 4 - 6 days PAIN SCORE: Non-responsive. LOCATION: Bilateral chest FINDINGS: Small caliber right chest tube has been removed. There is a moderate sized right pneumothorax with ab out 4 cm pleural separation. Mild basilar atelectasis. Endotracheal tube in satisfactory position. Ri ght central line in superior vena cava. Nasogastric tube enters the stomach. CONCLUSION: 1. Small caliber right chest tube has been removed. There is a moderate size right pneumothorax. Find ings called to Dr. Moreno at the time of dictation. Juan Bajwa MD on February 02, 2017 at 14:43 Board Certified Radiologist. This report was verified electronically.
--- NOTE | 2017-02-02 16:27 | RADRPT ---
EXAM DATE/TIME: 02/02/2017 14:00 [facility] COMPARISON: No previous studies available for comparison. INDICATIONS : Fall 01/28/17. Left hand appears bruised MEDICAL HISTORY : intracranial hemorrhage SURGICAL HISTORY : Craniotomy. ENCOUNTER: Initial ACUITY: 4 - 6 days PAIN SCORE: Non-responsive. LOCATION: Left hand FINDINGS: 3 views of the left hand demonstrate no fracture or dislocation. Mineralization is within normal limi ts. Pulse oximeter lead is present on the distal fourth digit. A buckle overlies the distal forearm. No soft tissue abnormality or concerning radiopaque foreign body is visualized. CONCLUSION: No acute left hand abnormality is identified. Emerson Mariee MD on February 02, 2017 at 16:24 Board Certified Radiologist. This report was verified electronically.
[2017-02-02] MEDS: ACETAMINOPHEN 325 MG TAB PO PRN (16:46)
[2017-02-02] MEDS: PANTOPRAZOLE SODIUM 40 MG VIAL IV SCH (16:46)
[2017-02-02] MEDS: ENOXAPARIN SODIUM 40 MG/0.4 ML SYRINGE SQ SCH (16:48)
--- NOTE | 2017-02-02 16:57 | HHI.CCPN ---
Subjective Brief History severe traumatic brain injury. [place] coma scale 3. Large left temporoparietal subdural hematoma, right basal skull fracture through the petrous bone with extrusion of some brain matter on the right, fracture of the right scapula, left superior inferior ramus pubic fracture with minimal displacement and a right sacral fracture. Patient will be taken immediately to the operating room. Patient underwent a left frontotemporal craniectomy with evacuation of subdural hematoma and placement of ventriculostomy Orthopedic consult was obtained and no further operative management will be instituted 24 Hour Review/Hospital Course Patient has been in the ICU overnight intubated and ventilated 01/29/17 Neurologic status is unchanged ICP remains low Pupils are equal about 2 mm and somewhat reactive Patient remains on propofol fentanyl Hypertonic 3% saline at 30 cc/h Keppra No clinical suspicion of seizures 01/30/17 Patient is withdrawing all 4 extremities and localizes and opened her eyes ICP remains low around 8 mmHg Removed from propofol and fentanyl or any form of sedation Sodium 158 and hypertonic saline removed Remains intubated and ventilated and starting to pickup on her own the rate 01/31 open eyes spontaneously-move extremities ICP around 10 mmHg ventriculostomy 110cc/8hrs tolerating CPAP 02/01/17 ICP remains low around 8-10 mmHg Probably ventriculostomy can be safely removed soon as per neurosurgery Patient opening eyes and trying to follow some commands moves both lower extremities and right arm but very little in the left arm Patient is definitely neurologically improving Tolerated CPAP for about 4 hours 02/02/17 Patient neurologically unchanged. Opens eyes to sternal rub and moves all 4 extremities right more than left as described yesterday Does not follow commands Repeat CT scan shows evolving parietal trauma with edema however no new changes EEG consistent with encephalopathy and no seizures Patient is on Keppra and valproic acid. In this case valproic acid has been added by neuropsychology for unrelated reasons ICP remains around 8-9 mmHg and ventriculostomy is a 10 cm Will be probably able to remove either ICP bolt, ventriculostomy or both soon as per neurosurgery Objective Vital Signs Date Time Temp Pulse Resp B/P Pulse Ox O2 Delivery O2 Flow Rate FiO2 02/02/17 13:31 100 40 02/02/17 12:00 122 02/02/17 12:00 100.5 18 139/63 01/29/17 07:00 Mechanical Ventilator Intake and Output 02/01/17 02/01/17 02/02/17 08:00 16:00 00:00 Intake Total 662 ml 946 ml 780 ml Output Total 847 ml 3862 ml 2660 ml Balance -185 ml -2916 ml -1880 ml Result Diagram: 02/02/17 0500 02/02/17 1235 Imaging Last 24 hours Impressions Chest X-Ray 02/02/17 1400 Signed Impressions: Service Date/Time: Thursday, February 02, 2017 13:54 - CONCLUSION: 1. Small caliber right chest tube has been removed. There is a moderate size right pneumothorax. Findings called to Dr. Moreno at the time of dictation. Juan Bajwa MD Head CT 02/02/17 0600 Signed Impressions: Service Date/Time: Thursday, February 02, 2017 04:24 - CONCLUSION: 1. No significant change in the subdural hemorrhage with mild increase in surrounding edema 2. Small area of edema again noted in the right temporal lobe which is mildly more conspicuous. 3. No new hemorrhage or mass effect. There is no significant midline shift now noted. 4. TheThe ventricular shunt catheter remains in place with no hydrocephalus. Kalin Tate MD Hand X-Ray 02/02/17 0000 Signed Impressions: Service Date/Time: Thursday, February 02, 2017 14:00 - CONCLUSION: No acute left hand abnormality is identified. Emerson Mariee MD Exam [employer] Patient neurologically unchanged. Opens eyes to sternal rub and moves all 4 extremities right more than left as described yesterday Does not follow commands Repeat CT scan shows evolving parietal trauma with edema however no new changes EEG consistent with encephalopathy and no seizures Patient is on Keppra and valproic acid. In this case valproic acid has been added by neuropsychology for unrelated reasons ICP remains around 8-9 mmHg and ventriculostomy is a 10 cm Will be probably able to remove either ICP bolt, ventriculostomy or both soon as per neurosurgery Hypertonic 2% saline at 20 cc/h Will probably be able to remove that soon as well Hemodynamic/Cardiac Hemodynamically patient is stable Pulmonary/Respiratory Bilateral breath sounds Right pigtail chest tube apparently fell out today during the movement of the patient to CT scan There is a small residual apical pneumothorax and if it decreases tomorrow I will not do anything about it but if it's increased I'll place another pigtail catheter Abdomen/GI Nutrition Abdomen soft enteral feeds tolerated Assessment and Plan Plan ICP satisfactory level CPP as well neuro status improving HD stable monitor NA-off hyperosmolar therapy CT right to suction continue tube feeds discuss chemical DVT prophylaxis with NS Attestation Plan Daily CPAP trials Remove the ICP bolt and the ventriculostomy as per neurosurgery If no neurologic improvement by the end with a week patient will require tracheostomy for further weaning because at this point the obstacle is not the pulmonary function but rather the low neurologic level and inability to protect the upper airway Critical care 40 minutes Noemy Philip MD Feb 02, 2017 16:57
[2017-02-02 17:08] LABS: BLOOD, URINE NEG (NEG); COMMENT (UR) CATH-CULT NOT IND; CULTURE IF INDICATED CATH CULTURE NOT IND; GLUCOSE,URINE NEG (NEG); KETONE, URINE TRACE mg/dL (NEG); MUCUS URINE FEW /lpf (OCC); NITRITE,URINE NEG (NEG); URINE COLOR YELLOW (YELLW/STRAW)
[2017-02-03] VITALS (18 sets, daily range): BP systolic 111–134; BP diastolic 56–59; PULSE 96–126; RESP 14–28; TEMP 99.3–102.7; O2SAT 99–100
[2017-02-03] MEDS: ACETAMINOPHEN 325 MG TAB PO PRN ×2 (00:35→17:07)
[2017-02-03] MEDS: SODIUM CHLORIDE IV SCH (00:35)
[2017-02-03] MEDS: SODIUM CHLORID 0.9% IV SCH (00:35)
[2017-02-03] MEDS: AMPICILLIN-SULBACTAM INJ 3 GM in SODIUM CHLORIDE 0.9% INJ 100 ML IV SCH (04:34)
--- NOTE | 2017-02-03 05:15 | RADRPT ---
EXAM DATE/TIME: 02/03/2017 04:28 [facility] COMPARISON: CHEST SINGLE AP, February 02, 2017, 13:54. INDICATIONS : Short of breath. Followup right pneumothorax.. MEDICAL HISTORY : None. SURGICAL HISTORY : None. ENCOUNTER: Subsequent ACUITY: 1 week PAIN SCORE: 0/10 LOCATION: Bilateral chest FINDINGS: A single AP portable semierect view of the chest was obtained and again demonstrates a moderate right pneumothorax extending from the lung apices to the lung base. This has increased mildly in size and now measures up to 4.2 cm in the lung apex. This now surrounds the periphery of the lung. There is mi ld atelectasis in the right lung. The left lung is clear. The heart size is within normal limits. The re is questionable mild mediastinal shift to the left. The endotracheal tube remains in place with th e tip approximately 2 cm above the dima. Nasogastric tube remains in place as well. There is subcut aneous emphysema over the right lateral chest wall. There is a right scapular fracture again noted. T he right-sided central venous line remains in place. CONCLUSION: Mild interval increase in the size of the moderate right pneumothorax which now surro unds the entire lung periphery. There is questionable mild mediastinal shift to the left. Kalin Tate MD on February 03, 2017 at 5:10 Board Certified Radiologist. This report was verified electronically.
[2017-02-03 05:56] LABS: BASOPHIL # 0.1 TH/MM3 (0-0.2); BASOPHIL % 0.5 % (0.0-2.0); EOSINOPHIL # 0.3 TH/MM3 (0-0.4); EOSINOPHIL % 1.8 % (0.0-4.0); HEMATOCRIT 26.6 % (35.0-46.0); LYMPHOCYTE # 2.1 TH/MM3 (1.0-4.8); MEAN CELL VOLUME 90.3 FL (80.0-100.0); MEAN CORPUSCULAR HEMOGLOBIN 29.6 PG (27.0-34.0); MEAN CORPUSCULAR HGB CONC 32.8 % (32.0-36.0); MONO % 9.1 % (0.0-8.0); NEUT % 75.6 % (16.0-70.0); PLATELET COUNT 256 TH/MM3 (150-450); RED BLOOD COUNT 2.95 MIL/MM3 (4.00-5.30); RED CELL DISTRIBUTION WIDTH 15.8 % (11.6-17.2); WHITE BLOOD COUNT 15.9 TH/MM3 (4.0-11.0)
[2017-02-03 06:02] LABS: HEMO FLAGS AUTO DIFF
[2017-02-03 06:24] LABS: ALT (GPT) 29 U/L (10-53); ANION GAP 6 MEQ/L (5-15); AST (GOT) 16 U/L (15-37); BICARBONATE 26.6 MEQ/L (21.0-32.0); BLOOD UREA NITROGEN 13 MG/DL (7-18); CHLORIDE 110 MEQ/L (98-107); GLOMERULAR FILTRATION RATE 157 ML/MIN (>89); POTASSIUM 3.9 MEQ/L (3.5-5.1); SODIUM (NA) 143 MEQ/L (136-145)
[2017-02-03 06:27] LABS: ALKALINE PHOSPHATASE 85 U/L (45-117); TOTAL BILIRUBIN ADULT 0.8 MG/DL (0.2-1.0)
[2017-02-03] MEDS ORDERED: Vancomycin Consult Pharmacy 1 EA OTHER SCH (07:30)
[2017-02-03 07:59] LABS: BASOPHILS 1 % (0-2); EOSINOPHILS 3 % (0-4); METAMYELOCYTES 3 % (0-1); MYELOCYTES 3 % (0-0); NEUTROPHIL # MANUAL DIFF 11.8 TH/MM3 (1.8-7.7); POLYS (SEG NEUTROPHILS) 68 % (16-70); WBC DIFF SAMPLE 100
[2017-02-03 08:00] LABS: PLATELET ESTIMATE SMEAR NORMAL (NORMAL); PLATELET MORPHOLOGY ENLARGED (NORMAL)
[2017-02-03] MEDS: CHLORHEXIDINE 0.12% (ORAL KIT) 15 ML CUP MT SCH ×2 (08:00→20:40)
[2017-02-03 08:01] LABS: SCAN/DIFF FINAL DIFF MANUAL
[2017-02-03] MEDS: CEFEPIME INJ 2,000 MG in SODIUM CHLORIDE 0.9% INJ 100 ML IV SCH ×2 (08:35→17:07)
[2017-02-03] MEDS: DOCUSATE SODIUM 50 MG/SENNA 8.6 MG TAB PO SCH ×2 (08:35→20:56)
[2017-02-03] MEDS: VALPROIC ACID SYRUP 250 MG/5 ML UDC PO SCH ×3 (08:36→17:14)
[2017-02-03] MEDS: SODIUM CHLORIDE 0.9% FLUSH 10 ML FLUSH IV FLUSH SCH ×2 (08:36→20:56)
[2017-02-03] MEDS: BISACODYL 10 MG SUPP RECTAL SCH ×2 (08:36→09:00)
[2017-02-03] MEDS: levETIRAcetam INJ 500 MG in SODIUM CHLORIDE 0.9% INJ 100 ML IV SCH ×2 (08:43→20:56)
--- NOTE | 2017-02-03 08:46 | HHI.NSPN ---
(Marques MorenoCash CHRIS) History Chief Complaint: Unable to obtain due to clinical condition. (Marques Moreno) Interval History 01/27: Patient is a middle-aged female who according to her family fell through a garage ceiling landing on the floor one-story down. Positive loss of consciousness. Patient was reportedly unresponsive immediately after the event. No seizure activity reported. She was GCS 3-4 at the scene and brought to [facility] emergency room as a trauma alert per EMS. She was intubated in the emergency room. She was noted to have a fixed dilated left pupil and pinpoint right pupil in the emergency room on initial evaluation. The undersigned reviewed the patient's CT scan images shortly after completion while the patient was in the CT scanning suite. Images revealed a large left hemispheric acute subdural hematoma with approximate 16 mm midline shift, significant effacement of the left ventricle and cisterns. Patient was taken emergently to the operating room from the CT scanning suite. 01/28: The patient is intubated and mechanically ventilated with propofol & fentanyl for sedation. She is on norepinephrine for blood pressure support which Nursing states she is titrating down. Nursing also reported that the patient did squeeze with her hands this morning. The patient was transfused this morning for a haemoglobin of 7.4. 01/29: The patient remains intubated and mechanically ventilated. The propofol & fentanyl drips have been off since 929 this morning. She is no longer on any vasopressors. Saline 3% is infusing. Nursing states she is withdrawing but has not had any eye opening. ICP has been running 4 to 5 on the ventriculostomy per Nursing and that the bolt pressure is not being used since it was reportedly not in proper position. Nursing also reports excessive drainage from the ventriculostomy. 01/30: Patient intubated on minimal sedation. Not opening eyes to verbal or tactile stimulation 01/31: Patient remains intubated on minimal sedation. At this point she is opening her eyes and tracking to verbal stimulation. 02/01: The patient continues to be intubated and mechanically ventilated. The fentanyl was discontinued this morning.Nursing reported that the left pupil appeared slightly larger this morning and that the ventriculostomy ICP has been ranging between 5 and 10. 02/02: The patient is still intubated and mechanically ventilated. She remains off any sedation. Nursing reported that she did follow commands to move the right hand once yesterday. When an EEG was done yesterday the tech reported to Nursing that there was fresh blood to the right side of the head. 02/03: The patient remains intubated and mechanically ventilated. She is noted to be moving the right side extremities spontaneously. Nursing reports that she also was withdrawing on the left to noxious stimuli. The Mill Control Operator is preparing to replace the chest tube. The patient did spike a temperature to 103.1 yesterday afternoon. (Marques Moreno) System Review Comments Unable to obtain due to clinical condition. (Marques Moreno) Exam Results Vital Signs Date Time Temp Pulse Resp B/P Pulse Ox O2 Delivery O2 Flow Rate FiO2 02/03/17 07:46 100 40 02/03/17 06:00 108 02/03/17 04:00 99.3 14 111/56 Intake and Output 02/02/17 02/02/17 02/03/17 08:00 16:00 00:00 Intake Total 629 ml 860 ml 614 ml Output Total 1222.0 ml 1227 ml 760 ml Balance -593.0 ml -367 ml -146 ml (Marques Moreno) Physical Examination GENERAL: The patient is intubated and mechanically ventilated w/o any sedation. SKIN: Skin warm & dry. Multiple abrasions & ecchymosis to extremities healing w/ o complication, ecchymosis to left side of head. Right parietal scalp laceration. No rashes or other lesions noted. HEENT: Well approximated left-sided craniotomy w/intact mendel and pressure monitoring bolt & ventriculostomy insertions sites, w/o any evident drainage, erythema or streaking. PERRLA. Orally intubated. OGT. NECK: No JVD, trachea midline, right IJ central venous catheter. CARDIOVASCULAR: S1S2 w/regular but fast rate w/o M/G/R, radial & pedal pulses 2 + bilaterally, cap refill < 2 sec, no pedal edema. Monitor is sinus tachycardia w/o any ectopy noted. RESPIRATORY: CTAB w/o W/R/R, equal excursion, nonlaboured, intubated and mechanically ventilated. GASTROINTESTINAL: Abdomen soft, bowel sounds not appreciated, OGT w/enteral feeds. MUSCULOSKELETAL: Scattered abrasions & ecchymosis. No evident deformities or clubbing. NEUROLOGICAL: GCS 8T (E3 V1T M4). Opens eyes intermittently to voice & noxious stimuli. PERRLA. Spontaneously moving RUE & RLE, withdrew LLE to noxious stimuli, no response w/ LUE to noxious stimuli. Unable to assess sensation. 3% saline infusing at 30 mL. Ventriculostomy at 10 cm H2O pressure, w/175 mL drainage which is faint pinkish yellow CSF in collection chamber. [place] ICP 8-10 when seen. (Marques Moreno) Lab, Micro, Other Results Allergies Coded Allergies Type Severity Reaction Last Updated Verified No Known Allergies 01/31/17 No Recent Impressions Chest X-Ray 02/03/17 0600 Signed Impressions: Service Date/Time: Friday, February 03, 2017 04:28 - CONCLUSION: Mild interval increase in the size of the moderate right pneumothorax which now surrounds the entire lung periphery. There is questionable mild mediastinal shift to the left. Kalin Tate MD Chest X-Ray 02/02/17 1400 Signed Impressions: Service Date/Time: Thursday, February 02, 2017 13:54 - CONCLUSION: 1. Small caliber right chest tube has been removed. There is a moderate size right pneumothorax. Findings called to Dr. Moreno at the time of dictation. Juan Bajwa MD Head CT 02/02/17 0600 Signed Impressions: Service Date/Time: Thursday, February 02, 2017 04:24 - CONCLUSION: 1. No significant change in the subdural hemorrhage with mild increase in surrounding edema 2. Small area of edema again noted in the right temporal lobe which is mildly more conspicuous. 3. No new hemorrhage or mass effect. There is no significant midline shift now noted. 4. TheThe ventricular shunt catheter remains in place with no hydrocephalus. Kalin Tate MD Hand X-Ray 02/02/17 0000 Signed Impressions: Service Date/Time: Thursday, February 02, 2017 14:00 - CONCLUSION: No acute left hand abnormality is identified. Emerson Mariee MD Chest X-Ray 02/01/17 0600 Signed Impressions: Service Date/Time: Wednesday, February 01, 2017 04:44 - CONCLUSION: 1. Small bore right-sided chest tube remains in place with no visualized pneumothorax. 2. Artifact projected over the right lung apex limiting visualization. Kalin Tate MD /////// 06:00 18:00 06:00 18:00 06:00 18:00 Intake Total 1371 ml 946 ml 1409 ml 860 ml 1482 ml Output Total 1647 ml 3862 ml 3882 ml 1227 ml 1865 ml Balance -276 ml -2916 ml -2473 ml -367 ml -383 ml Intake IV Total 623 ml 468 ml 689 ml 400 ml 710 ml Tube Feeding 748 ml 418 ml 690 ml 400 ml 742 ml Tube Irrigant 60 ml 30 ml 60 ml 30 ml Output Urine Total 1450 ml 3725 ml 3700 ml 1125 ml 1750 ml Stool Total 0 ml Gastric Drainage Total 0 ml 0 ml Tube Feeding Residual Discard 0 ml Chest Tube Drainage Total 0 ml 7 ml 6 ml 2 ml Drainage Total 197 ml 130 ml 176 ml 100 ml 115 ml # Bowel Movements 1 0 4 3 Laboratory Tests Test 01/31/17 01/31/17 01/31/17 02/01/17 12:00 18:00 23:45 05:09 Sodium Level 154 MEQ/L 151 MEQ/L 151 MEQ/L 147 MEQ/L Potassium Level 3.5 MEQ/L 4.5 MEQ/L Phosphorus Level 2.6 MG/DL White Blood Count 10.2 TH/MM3 Red Blood Count 2.63 MIL/MM3 Hemoglobin 8.3 GM/DL Hematocrit 23.3 % Mean Corpuscular Volume 88.5 FL Mean Corpuscular Hemoglobin 31.5 PG Mean Corpuscular Hemoglobin 35.6 % Concent Red Cell Distribution Width 16.4 % Platelet Count 151 TH/MM3 Mean Platelet Volume 8.4 FL Neutrophils (%) (Auto) 74.4 % Lymphocytes (%) (Auto) 16.1 % Monocytes (%) (Auto) 8.0 % Eosinophils (%) (Auto) 1.2 % Basophils (%) (Auto) 0.3 % Neutrophils # (Auto) 7.6 TH/MM3 Lymphocytes # (Auto) 1.6 TH/MM3 Monocytes # (Auto) 0.8 TH/MM3 Eosinophils # (Auto) 0.1 TH/MM3 Basophils # (Auto) 0.0 TH/MM3 CBC Comment DIFF FINAL Differential Comment Chloride Level 114 MEQ/L Carbon Dioxide Level 27.7 MEQ/L Anion Gap 5 MEQ/L Blood Urea Nitrogen 11 MG/DL Creatinine 0.45 MG/DL Estimat Glomerular Filtration 149 ML/MIN Rate Random Glucose 102 MG/DL Calcium Level 8.2 MG/DL Magnesium Level 1.9 MG/DL Total Bilirubin 1.0 MG/DL Aspartate Amino Transf 31 U/L (AST/SGOT) Alanine Aminotransferase 42 U/L (ALT/SGPT) Alkaline Phosphatase 79 U/L Total Protein 5.4 GM/DL Albumin 2.2 GM/DL Test 02/01/17 02/02/17 02/02/17 02/02/17 20:00 00:00 05:00 12:35 Sodium Level 144 MEQ/L 148 MEQ/L 144 MEQ/L 143 MEQ/L White Blood Count 14.8 TH/MM3 Red Blood Count 3.04 MIL/MM3 Hemoglobin 9.4 GM/DL Hematocrit 27.3 % Mean Corpuscular Volume 89.7 FL Mean Corpuscular Hemoglobin 30.7 PG Mean Corpuscular Hemoglobin 34.3 % Concent Red Cell Distribution Width 16.2 % Platelet Count 203 TH/MM3 Mean Platelet Volume 8.7 FL Neutrophils (%) (Auto) 78.3 % Lymphocytes (%) (Auto) 11.6 % Monocytes (%) (Auto) 8.4 % Eosinophils (%) (Auto) 1.5 % Basophils (%) (Auto) 0.2 % Neutrophils # (Auto) 11.6 TH/MM3 Lymphocytes # (Auto) 1.7 TH/MM3 Monocytes # (Auto) 1.2 TH/MM3 Eosinophils # (Auto) 0.2 TH/MM3 Basophils # (Auto) 0.0 TH/MM3 CBC Comment DIFF FINAL Differential Comment Potassium Level 3.6 MEQ/L Chloride Level 109 MEQ/L Carbon Dioxide Level 26.5 MEQ/L Anion Gap 9 MEQ/L Blood Urea Nitrogen 12 MG/DL Creatinine 0.41 MG/DL Estimat Glomerular Filtration 166 ML/MIN Rate Random Glucose 109 MG/DL Calcium Level 8.2 MG/DL Magnesium Level 2.2 MG/DL Total Bilirubin 1.1 MG/DL Aspartate Amino Transf 29 U/L (AST/SGOT) Alanine Aminotransferase 37 U/L (ALT/SGPT) Alkaline Phosphatase 86 U/L Total Protein 5.6 GM/DL Albumin 2.2 GM/DL Test 02/02/17 02/02/17 02/03/17 02/03/17 15:30 19:40 00:00 05:30 Urine Color YELLOW Urine Turbidity CLEAR Urine pH 8.0 Urine Specific [place] 1.019 Urine Protein TRACE mg/dL Urine Glucose (UA) NEG mg/dL Urine Ketones TRACE mg/dL Urine Occult Blood NEG Urine Nitrite NEG Urine Bilirubin NEG Urine Urobilinogen LESS THAN 2.0 MG/DL Urine Leukocyte Esterase NEG Urine RBC LESS THAN 1 /hpf Urine WBC 2 /hpf Urine Mucus FEW /lpf Microscopic Urinalysis Comment CATH-CULT NOT IND Sodium Level 143 MEQ/L 145 MEQ/L 143 MEQ/L White Blood Count 15.9 TH/MM3 Red Blood Count 2.95 MIL/MM3 Hemoglobin 8.7 GM/DL Hematocrit 26.6 % Mean Corpuscular Volume 90.3 FL Mean Corpuscular Hemoglobin 29.6 PG Mean Corpuscular Hemoglobin 32.8 % Concent Red Cell Distribution Width 15.8 % Platelet Count 256 TH/MM3 Mean Platelet Volume 7.9 FL Neutrophils (%) (Auto) 75.6 % Lymphocytes (%) (Auto) 13.0 % Monocytes (%) (Auto) 9.1 % Eosinophils (%) (Auto) 1.8 % Basophils (%) (Auto) 0.5 % Neutrophils # (Auto) 12.0 TH/MM3 Lymphocytes # (Auto) 2.1 TH/MM3 Monocytes # (Auto) 1.4 TH/MM3 Eosinophils # (Auto) 0.3 TH/MM3 Basophils # (Auto) 0.1 TH/MM3 CBC Comment AUTO DIFF Differential Total Cells 100 Counted Neutrophils % (Manual) 68 % Lymphocytes % 12 % Monocytes % 10 % Eosinophils % 3 % Basophils % 1 % Neutrophils # (Manual) 11.8 TH/MM3 Metamyelocytes 3 % Myelocytes 3 % Differential Comment FINAL DIFF MANUAL Platelet Estimate NORMAL Platelet Morphology Comment ENLARGED Polychromasia 2.0 % Basophilic Stippling FAINT Potassium Level 3.9 MEQ/L Chloride Level 110 MEQ/L Carbon Dioxide Level 26.6 MEQ/L Anion Gap 6 MEQ/L Blood Urea Nitrogen 13 MG/DL Creatinine 0.43 MG/DL Estimat Glomerular Filtration 157 ML/MIN Rate Random Glucose 113 MG/DL Calcium Level 8.1 MG/DL Total Bilirubin 0.8 MG/DL Aspartate Amino Transf 16 U/L (AST/SGOT) Alanine Aminotransferase 29 U/L (ALT/SGPT) Alkaline Phosphatase 85 U/L Total Protein 5.5 GM/DL Albumin 2.0 GM/DL Vital Signs Date Time Temp Pulse Resp B/P Pulse Ox O2 Delivery O2 Flow Rate FiO2 02/03/17 07:46 100 40 02/03/17 06:00 108 02/03/17 04:28 100 40 02/03/17 04:00 99.3 96 14 111/56 100 02/03/17 04:00 40 02/03/17 04:00 96 02/03/17 02:00 118 02/03/17 01:10 100 40 02/03/17 00:00 120 02/03/17 00:00 40 02/03/17 00:00 100.5 120 22 121/56 100 02/02/17 22:00 118 02/02/17 20:00 100.0 122 21 118/56 100 02/02/17 20:00 40 02/02/17 20:00 122 02/02/17 19:57 100 40 02/02/17 18:00 124 02/02/17 16:57 100 40 02/02/17 16:00 132 02/02/17 16:00 103.1 132 19 146/64 94 02/02/17 16:00 40 02/02/17 14:00 119 02/02/17 13:31 100 40 02/02/17 12:00 40 02/02/17 12:00 122 02/02/17 12:00 100.5 122 18 139/63 100 02/02/17 10:00 120 02/02/17 09:30 40 02/02/17 09:30 40 02/02/17 09:30 99 40 02/02/17 08:46 100 40 02/02/17 08:00 100.5 120 20 161/60 100 02/02/17 08:00 40 02/02/17 08:00 128 02/02/17 06:00 116 02/02/17 04:20 100 100 02/02/17 04:05 100 40 02/02/17 04:00 40 02/02/17 04:00 99.9 88 16 133/62 100 02/02/17 04:00 88 02/02/17 02:00 110 02/02/17 01:22 100 40 02/02/17 00:00 98 02/02/17 00:00 40 02/02/17 00:00 99.6 98 21 133/60 100 02/01/17 22:47 100 40 02/01/17 22:00 110 02/01/17 21:09 20 02/01/17 21:09 20 02/01/17 20:00 101.9 130 22 136/63 100 02/01/17 20:00 40 02/01/17 20:00 130 02/01/17 19:42 100 40 02/01/17 18:00 134 02/01/17 16:59 100 40 02/01/17 16:00 100.8 123 18 116/59 100 02/01/17 16:00 40 02/01/17 16:00 123 02/01/17 14:00 128 02/01/17 13:05 100 40 02/01/17 12:00 113 02/01/17 12:00 101.3 113 22 127/59 100 02/01/17 12:00 40 02/01/17 10:43 100 40 02/01/17 10:00 80 02/01/17 08:00 99.7 75 15 142/65 100 02/01/17 08:00 75 02/01/17 08:00 40 02/01/17 06:00 76 02/01/17 04:11 100 40 02/01/17 04:00 80 02/01/17 04:00 98.9 80 14 122/58 100 Arterial Line 02/01/17 04:00 40 02/01/17 02:00 76 02/01/17 00:54 100 40 02/01/17 00:00 40 02/01/17 00:00 77 02/01/17 00:00 99.5 77 14 125/60 100 01/31/17 22:07 100 40 01/31/17 22:07 100 40 01/31/17 22:00 88 01/31/17 20:00 40 01/31/17 20:00 110 01/31/17 20:00 99.6 110 17 131/62 100 01/31/17 18:00 79 01/31/17 16:00 90 01/31/17 16:00 40 01/31/17 16:00 99.0 90 19 136/64 100 01/31/17 15:51 100 40 01/31/17 14:00 96 01/31/17 12:00 99.0 105 16 122/62 100 01/31/17 12:00 80 122/62 01/31/17 12:00 105 01/31/17 12:00 40 01/31/17 11:58 100 40 01/31/17 10:00 84 (Marques Moreno) Medical Decision Making Impression and Plan Impression: 1. Severe acute left hemisphere subdural hematoma with severe midline shift and mass effect. 2. Right temporal bone fracture-nondisplaced Leukocytosis, interval increase (14.8=>15.9) Anaemia, interval drop (9.4=>8.7) Thrombocytopenia, resolved Sodium 143 Hypokalemia, resolved eGFR WNL Hypophosphatemia,resolved THA drain w/40 mL Ventriculostomy w/175 mL T max 103.1 Patient with improved neurological response, still critical. POD #7 () s/p: 1. Left decompressive frontotemporoparietal craniotomy for evacuation of acute subdural hematoma. 2. Left frontal ventriculostomy catheter placement 3. Left frontal twist drill for intracranial pressure monitor placement Plan: Primary management per Mill Control Operator/Trauma. Frequent neuro checks. Stat CT brain for worsening neuro status. Continuing external ventricular drain. Continue hypertonic saline to maintain sodium 145-154 range. Continuing ventilatory support and full sedation. Seizure prophylaxis. Ulcer prophylaxis. Non chemical DVT prophylaxis. (Marques Moreno) Attending Statement I have personally seen and examined the patient on 02/03/2017. Pertinent documentation and study results have been reviewed by the undersigned. I have personally developed the treatment plan and performed medical decision making. Agree with findings, exam, and treatment plan as noted above. No change on my neurologic exam today. Remains mostly unresponsive off sedation 02/02/17 CSF results reviewed. Repeat CSF culture obtained Discontinue ventriculostomy Continued ICP monitor (Nic Bahena MD) Marques Moreno Feb 03, 2017 08:46 Nic Bahena MD Feb 05, 2017 21:08
--- NOTE | 2017-02-03 09:32 | HHI.CCPN ---
Subjective Remarks/Hospital Course 46-year-old female who according to her family fell through a garage ceiling landing on the floor one-story down. Positive loss of consciousness. Patient was reportedly unresponsive immediately after the event. No seizure activity reported. She was GCS 3-4 at the scene and brought to [facility] emergency room as a trauma alert per EMS. She was intubated in the emergency room. She was noted to have a fixed dilated left pupil and pinpoint right pupil in the emergency room on initial evaluation. The CT Images revealed a large left hemispheric acute subdural hematoma with approximate 16 mm midline shift, significant effacement of the left ventricle and cisterns. Patient was taken emergently to the operating room from the CT scanning suite. SUBJ 01/28/17: s/p Left decompressive frontotemporoparietal craniotomy for evacuation of acute subdural hematoma. Left frontal ventriculostomy catheter placement, and Left frontal twist drill for intracranial pressure monitor placement. ICP well controlled. Small to moderate line associated pneumothorax associated with central line placement. Started on Levophed to maintain MAP, CPP 01/29: CT scan yesterday shows interval excellent evacuation of the subdural hemorrhage with improved midline shift from 17 mm to 4 mm. Neuro exam improving. Patient shakes her head to opened eyes couple times during night. Localizes to pain. ICP well controlled. Chest x-ray shows no residual pneumothorax 01/30: Remains intubated off pressors. Examination off sedation shows localizing 4, pupils are equal and reactive. Not following commands. Chest x- ray clear without pneumothorax 01/31: Neuro exam continues to improve. Opening eyes spontaneously and to pain. Localizes to pain 4 not following commands yet but shakes her head. Small apical pneumothorax most likely due to blockage and the pigtail-this was cleared we'll repeat chest x-ray 02/01: Opens eyes to sternal rub. Clearly weaker on the left side. Attempts to follow command on RUE on multiple requests, withdraws on left. Pneumothorax has resolved. 02/02 CT scan with worsening L parietal edema. Off continuous sedation; gets intermittent low dose fentanyl boluses. Opens eyes to sternal rub. Spontaneously moves RUE/RLE/LLE extremities but left is weaker. Localizes on right, does not follow commands during my exam. CT was placed to water seal per trauma. Xray hand ordered due to L hand ecchymosis. Tolerating tube feeds and CPAP. ICP 5-10, Ventric +10 cm. Subjective: 02/03 Chest tube dislodged yesterday. CXR this morning with increased size of R pneumothorax. Replacing chest tube. Opens eyes to stimulation. Spontaneously moves BLE and RUE with localizing RUE. Temp max 103.1 with leukocytosis 15.9. Sandhu cultures have been sent and are pending. Replacing central line and initiating antimicrobial therapy with cefepime and vancomycin. Plan to continue CPAP trials after chest tube placement. Objective Vital Signs Date Time Temp Pulse Resp B/P Pulse Ox O2 Delivery O2 Flow Rate FiO2 02/03/17 07:46 100 40 02/03/17 06:00 108 02/03/17 04:00 99.3 14 111/56 Intake and Output 02/02/17 02/02/17 02/03/17 08:00 16:00 00:00 Intake Total 629 ml 860 ml 614 ml Output Total 1222.0 ml 1227 ml 760 ml Balance -593.0 ml -367 ml -146 ml Result Diagram: 02/03/17 0530 02/03/17 0530 Imaging Last 24 hours Impressions [address] Spine CT 01/27/171699 Signed Impressions: Service Date/Time: Friday, January 27, 2017 17:20 - CONCLUSION: 1. No fracture or subluxation. 2. Minimal subcutaneous emphysema seen within the upper neck likely related to patient's temporal bone fracture. Eb Guerin MD Pelvis X-Ray 01/27/171699 Signed Impressions: Service Date/Time: Friday, January 27, 2017 16:54 - CONCLUSION: 1. Left pubic rami fractures. Otoniel Crain MD Lumbar Spine CT 01/27/171699 Signed Impressions: Service Date/Time: Friday, January 27, 2017 17:20 - CONCLUSION: 1. No fracture or subluxation of the lumbar spine. 2. There are fractures of the right sacrum discussed in detail on CT the abdomen/pelvis. Eb Guerin MD Head CT 01/27/171699 Signed Impressions: Service Date/Time: Friday, January 27, 2017 17:20 - CONCLUSION: 1. Large acute subdural hematoma along the left frontal parietal and temporal lobes measuring 20 mm in greatest width with possible additional epidural component more superiorly. There is approximately 17 mm of subfalcine herniation to the right as well as diffuse effacement of the left cerebral sulci. 2. Acute right temporal bone fracture. 3. Fluid levels within the right maxillary sinus and left sphenoid sinus. Juan Carlos Jc MD Chest X-Ray 01/27/171699 Signed Impressions: Service Date/Time: Friday, January 27, 2017 16:54 - CONCLUSION: 1. Acute fracture involving the right scapula. 2. Endotracheal tube in good position 3 cm above the dima. Juan Carlos Jc MD Chest CT 01/27/171699 Signed Impressions: Service Date/Time: Friday, January 27, 2017 17:25 - CONCLUSION: 1. Comminuted fracture involving the right scapula. 2. Minimal posterior atelectatic changes bilaterally. Juan Carlos Jc MD Cervical Spine CT 01/27/171699 Signed Impressions: Service Date/Time: Friday, January 27, 2017 17:24 - CONCLUSION: 1. No acute fracture or prevertebral soft tissue swelling. 2. Straightening of the normal cervical lordosis. 3. Cervical spondylosis from C3 through C6. 4. Mild bilateral foraminal narrowing at C3-4, C4-5 and C5-6. Juan Carlos Jc MD Abdomen/Pelvis CT 01/27/171699 Signed Impressions: Service Date/Time: Friday, January 27, 2017 17:25 - CONCLUSION: 1. Acute fractures along the right sacrum as well as the left superior and inferior pubic rami. 2. No intra-abdominal trauma identified. Juan Carlos Jc MD Radius/Ulna X-Ray 01/27/17 0000 Signed Impressions: Service Date/Time: Friday, January 27, 2017 16:54 - CONCLUSION: Soft tissue swelling involving the right mid forearm without underlying radial or ulnar fracture. Juan Carlos Jc MD Chest X-Ray 01/27/17 0000 Signed Impressions: Service Date/Time: Friday, January 27, 2017 21:57 - CONCLUSION: No acute disease. Adequate placement of right jugular central line. Questionable tiny right apical pneumothorax. Followup studies recommended. Eb Guerin MD Objective Remarks Drips: 3% NaCl @ 30 mL per hour GENERAL: Well-nourished, well-developed patient. Off continuous sedation. SKIN: Warm and dry. HEAD: Status post craniotomy. R EVD in place +10cm 175 ml output 24 hours. EYES: No scleral icterus. No injection or drainage. Pupils 3 mm briskly reactive. NECK: Supple, trachea midline. No JVD or lymphadenopathy. CARDIOVASCULAR: Tachycardic, regular, sinus tach on the monitor with rate in the 110s. Without murmurs, gallops, or rubs. RESPIRATORY: Breath sounds diminished on the right. No wheezes Rales or rhonchi. GASTROINTESTINAL: Abdomen soft, non-tender, nondistended. Bowel sounds present. Rectal bag in place with no stool in it however patient has had 3 bowel movements in the last 24 hours. MUSCULOSKELETAL: No cyanosis, or edema. There is ecchymosis over the left hand. Probable radial pulses are present bilaterally. There is ecchymosis overlying the right distal forearm. NEURO: Pupils 3 mm briskly reactive. Opens eyes to stimulation. Localizes right upper extremity. Does not follow commands for me. Withdraws bilateral lower extremity (LLE weaker). LUE flaccid. . Clearly left side weaker than right A/P Assessment and Plan NEURO: Severe acute left hemisphere subdural hematoma with midline shift and mass effect Right temporal bone fracture-nondisplaced - Status post emergent evacuation, EVD and ICP monitor placement by Dr. Bahena - CT head 01/28-excellent evacuation of the subdural hemorrhage with significant improvement in midline shift - F/U CT head 02/02 - L parietal edema appears slightly increased. R temporal lobe edema persists. No midline shift. - Monitor ICP-well controlled. Monitor EVD output, Dr. Bahena challenging ventric. - Keep Na 145-153 in keeping with NSG recs, 3% NaCl increase to 40 mL/hr. Checking sodium daily. - Keppra for sz prophylaxis. On depaken 250 bid per trauma surgery. - Neuro exam, steadily improving, L hemiparesis present - Lortab prn pain. Fentanyl prn breakthrough. RESP: Acute Respiratory failure Iatrogenic R pneumothorax - Intubated for airway protection. Daily SBT however mental status precludes extubation. Mechanical ventilation day #8. Patient is improving neurologically but appears she may require trach. - Continue mechanical ventilation, End-tidal CO2 monitoring keep 30-35 - Placed R right pigtail chest tube 01/28, with resolution of pneumothorax. This chest tube dislodged on 02/02. Replaced 02/03 due to increased size of PTX. - DuoNeb every 2 hours when necessary CVS: Hypertension - When necessary labetalol and hydralazine to keep systolic blood pressure less than 150 GI: -Vital 1.5 @ 50 mL per hour per nutrition recommendations., IV Protonix - Having multiple bowel movements. Holding lactulose FEN/RENAL : - Sanchez remains in place because critically ill on mechanical ventilation and in need of accurate I's and O's. Monitor UOP. Monitor BUN/creatinine - Electrolyte replacement per protocol ID: - Patient has right temporal bone fracture with fluid in mastoid air cells - Patient has been on empiric unasyn. Temp max 103 WBC 15.9. Panculture from pending. U/a negative. Change antimicrobial coverage to vancomycin and cefepime. Will replace central line today. Ventric output noncloudy (is serosanginous/blood tinged). Endo: Satisfactory glycemic control MSK: Scapular, pelvic, and sacral fractures - No indication for surgery - Conservative and supportive care Xray R forearm and L hand were negative for fractures. DVT GI prophylaxis - Teds SCDs - Started lovenox 40 mg subcut 02/02, ok per discussion with Dr. Bahena.. - Protonix updated on telephone by me. Level 3 Natalia Headley MD Feb 03, 2017 09:32
--- NOTE | 2017-02-03 09:33 | PD.PROCEDR ---
Procedure Note Procedure Procedure: Right pigtail chest tube placement Indication: Right pneumothorax Details of procedure: Informed consent was obtained from the patient's after discussion of risks, benefits, alternatives. The patient was laid supine. The lateral chest wall was cleaned with ChloraPrep x3. Regional sterile drapes were applied. 1% lidocaine was used for local anesthesia and injected into the subcutaneous and deep muscle tissues. Needle was advanced into pleural space and there was serosanginous pleural fluid return. Wire was advanced. The 2 mm skin incision was made and the track was dilated. 10 Azeri pigtail chest tube was advanced over the wire. A suture was placed and a sterile dressing was applied. The chest tube was connected to a Pleur-evac drainage system -20 cm suction. There was a 1+ air leak. He tolerated procedure well without complication. Estimated blood loss: minimal Complications: None. Stat chest x-ray demonstrates improvement but still some residual PTX. Of note chest tube is peripheral in location. Natalia Headley MD Feb 03, 2017 09:33 aNtalia Headley MD Feb 03, 2017 09:33
--- NOTE | 2017-02-03 10:14 | RADRPT ---
EXAM DATE/TIME: 02/03/2017 09:50 [place] COMPARISON: CHEST SINGLE AP, February 03, 2017, 4:28. INDICATIONS : Status post chest tube placement. MEDICAL HISTORY : None. SURGICAL HISTORY : None. ENCOUNTER: Initial ACUITY: 1 week PAIN SCORE: Non-responsive. LOCATION: chest FINDINGS: Portable semi-upright expiratory view of the chest demonstrates a normal-sized cardiac silhouette. ET T, NG tube, and right subclavian central line remain present. Right chest tube has been placed and is located peripherally in the inferior right hemithorax. The right pneumothorax has decreased in size but a small pneumothorax remains present. There is linear atelectasis at the right lung base. No pleu ral effusion is visualized. There is right chest wall soft tissue air. Scapula fracture remains visua lized. CONCLUSION: 1. Right chest tube has been placed and the pneumothorax has decreased in size but a small pneumothor ax remains present. Please note that the chest tube is located very peripherally in the inferior righ t hemithorax. 2. Stable right chest wall soft tissue air. Right scapula fracture remains visualized. Emerson Mariee MD on February 03, 2017 at 10:10 Board Certified Radiologist. This report was verified electronically.
[2017-02-03] MEDS: VANCOMYCIN INJ 1,500 MG in SODIUM CHLORID 0.9% 500 ML INJ 500 ML IV SCH ×2 (10:38→21:59)
--- NOTE | 2017-02-03 11:50 | HHI.PR ---
Neuropsych Emotional Emotional: UnabletoAssess: Emotional, Anxious/Fearful, Depressed/Sad, Hostile/ Resentful, Irritable/Angry/Frustrate, Labile, Constricted/Blunted Behavior Behavior: Unable to Asses: Behavior, Coping/Acceptance, Cooperative w/ Treatment, Motivation, Frustration Tolerance/[place], Impulsive/Agitated, Suicidal/ Homicidal Risk Cognitive Cognitive: Unable to Asses: Cognitive, Attention/Concentration, Confused/ Orientation, Insight/Awareness, Judgement/Problem-Solving, Memory Progress Notes/Response to Tx Contents of Sessions: Adjustment, Level of Consciousness Time with Patient: 15 minutes Premorbid psychological status Premorbid Cognitive, Emotional and Behavioral Status: Deferred. No family present to ascertain premorbid abilities. Behavioral Reactions of Patient and Family/Support System: Deferred. The patients family is likley experiencing ongoing issues of adjustment given the nature of the injury, and this aspect of recovery will require ongoing monitoring. Emotional/Behavioral Status of Patient and Family/Support System: Deferred. Pertinent issues, if appropriate to this patients clinical care, are described in detail above. Maximizing acute care outcome It is recommended that the patient be monitored for emergent behavioral impulsivity as the medical condition evolves. This patients neuropathological challenges may limit their rehabilitation potential going forward, and these challenges will require specialized therapeutic skills to maximize outcome. Additionally, the patients family is experiencing ongoing issues of adjustment given the traumatic nature of the injury, and they may benefit from ongoing psychological assistance. Anticipated Problems Ongoing areas of concern will include behavioral impulsivity, lack of insight and judgment, which is expected to improve with time and treatment. Presently , the patient unresponsive, intubated and sedated. Treatment Plan This clinician will continue to follow with you throughout the course of this patients acute care treatment, and I will be available to meet with the patient s family/support system to facilitate their understanding and the ongoing care of their family member. The goals of neuropsychological intervention shall be both educational and supportive to the family/support system as is deemed clinically appropriate. [facility] Level: IV:Confused/Agitated-maximal assist Impression This is a 46 year old woman s/p TBI 2T fall on 01/27/2017, with large left temporoparietal SDH, right basal skull fracture through petrous bone with extrusion of brain matter on the right, and is s/p DC/ventriculostomy placement. 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 This is day 7 post injury. The patient opens her eyes to stimulation, moving extremities with increased restlessness, as would be expected. She appears as an emerging [place]o IV, and as such trauma team consensus is to increase Valproic Acid to 250 TID. I will continue to follow. Luis Murphy PhD Feb 03, 2017 11:50 am
[2017-02-03] MEDS: ENOXAPARIN SODIUM 40 MG/0.4 ML SYRINGE SQ SCH (13:09)
--- NOTE | 2017-02-03 13:53 | PD.CONS ---
History of Present Illness Service Infectious Disease Consult Requested By Dr Jr Headley Reason for Consult Evaluate patient with CSF (+) Gram variable segun Primary Care Physician Unknown Diagnoses: History of Present Illness Patient seen and examined. Records reviewed. Patient is a 46-year-old female admitted as a trauma alert. She was apparently working in her house in the garage ceiling and she felt improved some of the rafters, and landed on her head. She was found to have significant traumatic brain injury, and also had some other fracture including scapular fracture and in the pelvic region. The orthopedic injuries were all being treated conservatively. She had significant eye murmur out to on her imaging study of the brain, and underwent emergent surgery on her brain for evacuation of the significant epidural hematoma, placement of a bolt, as well as a ventriculostomy. She has remained on the vent. She was on Unasyn since January 29. Starting February 01 she started having fevers, and no cultures were ordered. CSF culture is showing gram-variable segun on the Gram stain of the broth but it did not grow on culture media. She has been started on cefepime and vancomycin. Patient also has a chest tube for pneumothorax. Her chest x-ray has shown stable findings. Urinalysis unremarkable. She has a central line in the right IJ. Infectious disease consultation is requested to evaluate the patient. Review of Systems ROS Limitations: Clinical Condition, Intubated, Unresponsive Past Family Social History Allergies: Coded Allergies: No Known Allergies (Unverified , 01/31/17) per Past Medical History None Past Surgical History None Active Ordered Medications Tylenol [place] Albuterol Dulcolax Cefepime Lovenox Fentanyl Hydralazine Labetalol Keppra Magnesium Zofran Protonix Potassium Depakene Vancomycin Family History Not known Social History Not known Physical Exam Vital Signs Vital Signs Date Time Temp Pulse Resp B/P Pulse Ox O2 Delivery O2 Flow Rate FiO2 02/03/17 12:00 120 02/03/17 12:00 102.7 122 23 123/58 100 02/03/17 12:00 40 02/03/17 11:29 100 40 02/03/17 10:00 120 02/03/17 09:59 100 40 02/03/17 09:59 40 02/03/17 08:00 118 02/03/17 08:00 99.5 118 19 120/59 100 02/03/17 08:00 40 8/2/17 07:46 100 40 02/03/17 06:00 108 02/03/17 04:28 100 40 02/03/17 04:00 99.3 96 14 111/56 100 02/03/17 04:00 40 02/03/17 04:00 96 02/03/17 02:00 118 02/03/17 01:10 100 40 02/03/17 00:00 120 02/03/17 00:00 40 02/03/17 00:00 100.5 120 22 121/56 100 02/02/17 22:00 118 02/02/17 20:00 100.0 122 21 118/56 100 02/02/17 20:00 40 02/02/17 20:00 122 02/02/17 19:57 100 40 02/02/17 18:00 124 02/02/17 16:57 100 40 02/02/17 16:00 132 02/02/17 16:00 103.1 132 19 146/64 94 02/02/17 16:00 40 02/02/17 14:00 119 Physical Exam GENERAL: Patient is a well-nourished, well-developed CF, sedated on the vent ; has bolt/ICP monitor and ventriculostomy, not in respiratory distress. SKIN: Warm and dry. No generalized rash, no ecchymoses and no evidence of embolic lesions. HEAD: Incision L side of head is dry, no redness or drainage. Ventriculostomy site ok, CSF blood tinged EYES: [place] conjunctiva. No petechia or hemorrhage. Pupils equal, round and reactive to light. No scleral icterus. No injection or drainage. EARS, NOSE AND THROAT: Nose without bleeding or purulent nasal discharge. She is orally intubated. NECK: Trachea midline. Supple and not tender, no meningeal signs. Line site with no evidence of infection CARDIOVASCULAR: Regular rate and rhythm. No murmurs, rubs or gallops heard RESPIRATORY: Scattered rales, more on R than L. CT site ok. ABDOMEN: Soft, nondistended, NO reaction to deep palpation. Bowel sounds present and normoactive. No organomegaly. EXTREMITIES: No clubbing, cyanosis, or joint effusion. Mild pedal edema. Hands edematous. Well perfused and warm. NEUROLOGICAL: Sedated PSYCHIATRIC: Unable to assess LINE: No evidence of infection : Sanchez in place urine looks ok Laboratory Laboratory Tests Test 02/02/17 02/02/17 02/03/17 02/03/17 15:30 19:40 00:00 05:30 Urine Color YELLOW Urine Turbidity CLEAR Urine pH 8.0 Urine Specific [place] 1.019 Urine Protein TRACE Urine Glucose (UA) NEG Urine Ketones TRACE Urine Occult Blood NEG Urine Nitrite NEG Urine Bilirubin NEG Urine Urobilinogen LESS THAN 2.0 Urine Leukocyte Esterase NEG Urine RBC LESS THAN 1 Urine WBC 2 Urine Mucus FEW Microscopic Urinalysis Comment CATH-CULT NOT IND Sodium Level 143 145 143 White Blood Count 15.9 Red Blood Count 2.95 Hemoglobin 8.7 Hematocrit 26.6 Mean Corpuscular Volume 90.3 Mean Corpuscular Hemoglobin 29.6 Mean Corpuscular Hemoglobin 32.8 Concent Red Cell Distribution Width 15.8 Platelet Count 256 Mean Platelet Volume 7.9 Neutrophils (%) (Auto) 75.6 Lymphocytes (%) (Auto) 13.0 Monocytes (%) (Auto) 9.1 Eosinophils (%) (Auto) 1.8 Basophils (%) (Auto) 0.5 Neutrophils # (Auto) 12.0 Lymphocytes # (Auto) 2.1 Monocytes # (Auto) 1.4 Eosinophils # (Auto) 0.3 Basophils # (Auto) 0.1 CBC Comment AUTO DIFF Differential Total Cells 100 Counted Neutrophils % (Manual) 68 Lymphocytes % 12 Monocytes % 10 Eosinophils % 3 Basophils % 1 Neutrophils # (Manual) 11.8 Metamyelocytes 3 Myelocytes 3 Differential Comment FINAL DIFF MANUAL Platelet Estimate NORMAL Platelet Morphology Comment ENLARGED Polychromasia 2.0 Basophilic Stippling FAINT Potassium Level 3.9 Chloride Level 110 Carbon Dioxide Level 26.6 Anion Gap 6 Blood Urea Nitrogen 13 Creatinine 0.43 Estimat Glomerular Filtration 157 Rate Random Glucose 113 Calcium Level 8.1 Total Bilirubin 0.8 Aspartate Amino Transf 16 (AST/SGOT) Alanine Aminotransferase 29 (ALT/SGPT) Alkaline Phosphatase 85 Total Protein 5.5 Albumin 2.0 Date/Time Procedure Status Source Growth 02/02/17 18:45 Aerobic Blood Culture - Preliminary Resulted Blood Peripheral NO GROWTH IN 1 DAY 02/02/17 18:45 Anaerobic Blood Culture - Preliminary Resulted Blood Peripheral NO GROWTH IN 1 DAY 02/02/17 15:45 Gram Stain - Final Resulted Sputum Endotracheal 02/02/17 15:45 Sputum Culture - Preliminary Resulted Sputum Endotracheal IMMATURE GROWTH - REINCUBATE Result Diagram: 02/03/17 0530 02/03/17 0530 Imaging RADIOLOGY STUDIES/FILMS REVIEWED Chest X-Ray 02/03/17 0600 Signed Impressions: Service Date/Time: Friday, February 03, 2017 04:28 - CONCLUSION: Mild interval increase in the size of the moderate right pneumothorax which now surrounds the entire lung periphery. There is questionable mild mediastinal shift to the left. Kalin Tate MD Head CT 02/02/17 0600 Signed Impressions: Service Date/Time: Thursday, February 02, 2017 04:24 - CONCLUSION: 1. No significant change in the subdural hemorrhage with mild increase in surrounding edema 2. Small area of edema again noted in the right temporal lobe which is mildly more conspicuous. 3. No new hemorrhage or mass effect. There is no significant midline shift now noted. 4. TheThe ventricular shunt catheter remains in place with no hydrocephalus. Kalin Tate MD Hand X-Ray 02/02/17 0000 Signed Impressions: Service Date/Time: Thursday, February 02, 2017 14:00 - CONCLUSION: No acute left hand abnormality is identified. Emerson Mariee MD Thoracic Spine CT 01/27/171699 Signed Impressions: Service Date/Time: Friday, January 27, 2017 17:20 - CONCLUSION: 1. No fracture or subluxation. 2. Minimal subcutaneous emphysema seen within the upper neck likely related to patient's temporal bone fracture. Eb Guerin MD Pelvis X-Ray 01/27/171699 Signed Impressions: Service Date/Time: Friday, January 27, 2017 16:54 - CONCLUSION: 1. Left pubic rami fractures. Otoniel Crain MD Lumbar Spine CT 01/27/171699 Signed Impressions: Service Date/Time: Friday, January 27, 2017 17:20 - CONCLUSION: 1. No fracture or subluxation of the lumbar spine. 2. There are fractures of the right sacrum discussed in detail on CT the abdomen/pelvis. Eb Guerin MD Chest CT 01/27/171699 Signed Impressions: Service Date/Time: Friday, January 27, 2017 17:25 - CONCLUSION: 1. Comminuted fracture involving the right scapula. 2. Minimal posterior atelectatic changes bilaterally. Juan Carlos Jc MD Cervical Spine CT 01/27/17 1700 Signed Impressions: Service Date/Time: Friday, January 27, 2017 17:24 - CONCLUSION: 1. No acute fracture or prevertebral soft tissue swelling. 2. Straightening of the normal cervical lordosis. 3. Cervical spondylosis from C3 through C6. 4. Mild bilateral foraminal narrowing at C3-4, C4-5 and C5-6. Juan Carlos Jc MD Abdomen/Pelvis CT 01/27/17 1700 Signed Impressions: Service Date/Time: Wednesday, January 27, 2017 17:25 - CONCLUSION: 1. Acute fractures along the right sacrum as well as the left superior and inferior pubic rami. 2. No intra-abdominal trauma identified. Juan Carlos Jc MD Radius/Ulna X-Ray 01/27/17 0000 Signed Impressions: Service Date/Time: Friday, January 27, 2017 16:54 - CONCLUSION: Soft tissue swelling involving the right mid forearm without underlying radial or ulnar fracture. Juan Carlos Jc MD Assessment and Plan Assessment and Plan IMPRESSION New fevers, possible sepsis, source? - ?VAP - has line, about 7 days old - ?CSF - has gram variable segun on broth, ?true or contamination TBI, with epidural hematoma S/P OR, has bolt and EVD Respiratory failure RECOMMENDATION Follow C/S Send CSF for cell count, glucose and proetin Repeat CSF C/S Continue Vancomycin and Cefepime Monitor temp Monitor progress I will follow with you Thank you for this consultation Discussed Condition With D/W RN D/W Dr Headley D/W Ai Menon MD Feb 03, 2017 13:53
[2017-02-03] MEDS ORDERED: SODIUM CHLORIDE 23.4% INJ 188 MEQ in SODIUM CHLOR 0.9% 1000 ML INJ 1,000 ML IV SCH (15:00)
--- NOTE | 2017-02-03 15:28 | RADRPT ---
EXAM DATE/TIME: 02/03/2017 13:16 [facility] COMPARISON: No previous studies available for comparison. INDICATIONS : Right arm swelling. MEDICAL HISTORY : Subdural hematoma. SURGICAL HISTORY : Hysterectomy. Breast reduction. Crania surgery. ENCOUNTER: Initial ACUITY: 1 day PAIN SCORE: Non-responsive LOCATION: Right arm. FINDINGS: There is minimal occlusive thrombus in the cephalic vein. The deep veins are patent. The axillary v ein is patent. CONCLUSION: Superficial thrombosis of the cephalic vein. Israel Dominguez MD FACR on February 03, 2017 at 15:25 Board Certified Radiologist. This report was verified electronically.
[2017-02-03 16:59] LABS: SUPERNATE COLOR TUBE #1 CLEAR (CLEAR); VOLUME TUBE # 1 1.1 ML; WBC TUBE #1 102 /MM3 (0-10)
[2017-02-03 17:00] LABS: CSF LYMPHOCYTES 5 %; CSF MONOCYTES 32 %; CSF NEUTROPHILS 63 %
[2017-02-03] MEDS: PANTOPRAZOLE SODIUM 40 MG VIAL IV SCH (17:14)
[2017-02-04] VITALS (19 sets, daily range): BP systolic 106–117; BP diastolic 51–56; PULSE 85–116; RESP 15–26; TEMP 98.6–101.9; O2SAT 100
[2017-02-04] MEDS: CEFEPIME INJ 2,000 MG in SODIUM CHLORIDE 0.9% INJ 100 ML IV SCH ×3 (01:25→17:42)
--- NOTE | 2017-02-04 02:55 | RADRPT ---
EXAM DATE/TIME: 02/04/2017 02:29 [facility] COMPARISON: CHEST SINGLE AP, February 03, 2017, 9:50. INDICATIONS : Shortness of breath. Follow up right pneumothorax MEDICAL HISTORY : None. SURGICAL HISTORY : None. ENCOUNTER: Subsequent ACUITY: 1 week PAIN SCORE: Non-responsive. LOCATION: Right chest FINDINGS: A single AP semierect view of the chest was obtained and again demonstrates a small bore right-sided chest tube in place at the lateral lung base. There has been interval increase in the size of the rig ht pneumothorax which is now moderate in size. This measures up to approximately 3 cm in diameter in the lung apex. There is mild subcutaneous emphysema. The heart size remains within normal limits. End otracheal tube tip remains in place with the tip approximately 3 cm above the dima. A nasogastric t ube is again seen coursing into the stomach. There are no confluent infiltrates or effusions. CONCLUSION: 1. Interval increase in the size of the right pneumothorax. Small bore right-sided chest tube remains in place. 2. No confluent wedge-shaped or effusions. Kalin Tate MD on February 04, 2017 at 2:52 Board Certified Radiologist. This report was verified electronically.
[2017-02-04] MEDS: ACETAMINOPHEN 325 MG TAB PO PRN ×2 (03:30→21:51)
--- NOTE | 2017-02-04 05:00 | RADRPT ---
EXAM DATE/TIME: 02/04/2017 04:39 [facility] COMPARISON: CT BRAIN W/O CONTRAST, February 02, 2017, 4:24. INDICATIONS : Follow up intracranial hemorrhage. RADIATION DOSE: 34.90 CTDIvol (mGy) MEDICAL HISTORY : None SURGICAL HISTORY : Craniotomy. ENCOUNTER: Subsequent ACUITY: 2 days PAIN SCALE: Non-responsive LOCATION: cranial TECHNIQUE: Multiple contiguous axial images were obtained of the head. Using automated exposure control and adj ustment of the mA and/or kV according to patient size, radiation dose was kept as low as reasonably a chievable to obtain optimal diagnostic quality images. DICOM format image data is available electro nically for review and comparison. FINDINGS: The study is degraded by streak and motion artifact. There are stable postoperative changes stat us post left frontal and parietal craniotomy. The previously noted ventricular shunt catheter has bee n removed. The subdural hemorrhage along the left temporal and parietal lobe is not significantly neli nged. The previously noted area of focal decreased attenuation in the right temporal lobe is stable i n appearance as well. The ventricular system remains within normal limits. There is no definite media stinal shift. The posterior fossa and brainstem are unremarkable. CONCLUSION: 1. Study is moderately degraded by streak and motion artifact limiting sensitivity. 2. Interval removal of the previously noted ventricular shunt catheter. 3. The low attenuation region in the right temporal lobe is no significant change. 4. No significant change in the left subdural hematoma. Kalin Tate MD on February 04, 2017 at 4:56 Board Certified Radiologist. This report was verified electronically.
[2017-02-04] MEDS: CHLORHEXIDINE 0.12% (ORAL KIT) 15 ML CUP MT SCH ×2 (08:55→20:00)
[2017-02-04] MEDS: DOCUSATE SODIUM 50 MG/SENNA 8.6 MG TAB PO SCH ×2 (09:00→21:00)
[2017-02-04] MEDS: BISACODYL 10 MG SUPP RECTAL SCH (09:00)
--- NOTE | 2017-02-04 09:06 | RADRPT ---
EXAM DATE/TIME: 02/04/2017 07:52 [facility] COMPARISON: No previous studies available for comparison. INDICATIONS : Left arm swelling. MEDICAL HISTORY : Subdural hematoma. SURGICAL HISTORY : Hysterectomy. Breast reduction. Cranial surgery. ENCOUNTER: Initial ACUITY: 4 - 6 days PAIN SCORE: Non-responsive LOCATION: Left arm. FINDINGS: There is spontaneous flow documented in the brachial, basilic, cephalic, axillary, and subclavian vei ns. The vessels are compressible and augmentation response is documented. No filling defects are se en. The flow is phasic with respiration. Direction of flow in the jugular vein is caudal. Please note that the peripheral basilic and portions of the cephalic vein were not visualized. CONCLUSION: No DVT is identified. Please note that portions of the basilic and cephalic vein are not visualized. Emerson Mariee MD on February 04, 2017 at 9:03 Board Certified Radiologist. This report was verified electronically.
--- NOTE | 2017-02-04 09:11 | HHI.PR ---
Neuropsych Emotional Emotional: UnabletoAssess: Emotional, Anxious/Fearful, Depressed/Sad, Hostile/ Resentful Behavior Behavior: Mild: Impulsive/Agitated Cognitive Cognitive: Unable to Asses: Cognitive, Attention/Concentration, Confused/ Orientation, Insight/Awareness, Judgement/Problem-Solving, Memory Progress Notes/Response to Tx Contents of Sessions: Adjustment, Level of Consciousness Time with Patient: 15 minutes Premorbid psychological status Premorbid Cognitive, Emotional and Behavioral Status: Deferred. No family present to ascertain premorbid abilities. Behavioral Reactions of Patient and Family/Support System: Deferred. The patients family is likley experiencing ongoing issues of adjustment given the nature of the injury, and this aspect of recovery will require ongoing monitoring. Emotional/Behavioral Status of Patient and Family/Support System: Deferred. Pertinent issues, if appropriate to this patients clinical care, are described in detail above. Maximizing acute care outcome It is recommended that the patient be monitored for emergent behavioral impulsivity as the medical condition evolves. This patients neuropathological challenges may limit their rehabilitation potential going forward, and these challenges will require specialized therapeutic skills to maximize outcome. Additionally, the patients family is experiencing ongoing issues of adjustment given the traumatic nature of the injury, and they may benefit from ongoing psychological assistance. Anticipated Problems Ongoing areas of concern will include behavioral impulsivity, lack of insight and judgment, which is expected to improve with time and treatment. Presently , the patient unresponsive, intubated and sedated. Treatment Plan This clinician will continue to follow with you throughout the course of this patients acute care treatment, and I will be available to meet with the patient s family/support system to facilitate their understanding and the ongoing care of their family member. The goals of neuropsychological intervention shall be both educational and supportive to the family/support system as is deemed clinically appropriate. [facility] Level: III:Localized response-total assist Impression This is a 46 year old woman s/p TBI 2T fall on 01/27/2017, with large left temporoparietal SDH, right basal skull fracture through petrous bone with extrusion of brain matter on the right, and is s/p DC/ventriculostomy placement. 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 This is day 8 post injury. The patient is slowly improving from a neurobehavioral standpoint , with increasing restlessness, suggestive of an emerging Rancho IV. Trauma team consensus is to maintain Valproic Acid at 250 TID. I will continue to follow. Luis Murphy PhD Feb 04, 2017 9:11 am
[2017-02-04] MEDS: levETIRAcetam INJ 500 MG in SODIUM CHLORIDE 0.9% INJ 100 ML IV SCH ×2 (10:08→21:24)
[2017-02-04] MEDS: VALPROIC ACID SYRUP 250 MG/5 ML UDC PO SCH ×3 (10:09→17:42)
[2017-02-04] MEDS: SODIUM CHLORIDE 0.9% FLUSH 10 ML FLUSH IV FLUSH SCH ×2 (10:09→21:24)
--- NOTE | 2017-02-04 10:51 | HHI.CCPN ---
Subjective Remarks/Hospital Course 46-year-old female who according to her family fell through a garage ceiling landing on the floor one-story down. Positive loss of consciousness. Patient was reportedly unresponsive immediately after the event. No seizure activity reported. She was GCS 3-4 at the scene and brought to [facility] emergency room as a trauma alert per EMS. She was intubated in the emergency room. She was noted to have a fixed dilated left pupil and pinpoint right pupil in the emergency room on initial evaluation. The CT Images revealed a large left hemispheric acute subdural hematoma with approximate 16 mm midline shift, significant effacement of the left ventricle and cisterns. Patient was taken emergently to the operating room from the CT scanning suite. SUBJ 01/28/17: s/p Left decompressive frontotemporoparietal craniotomy for evacuation of acute subdural hematoma. Left frontal ventriculostomy catheter placement, and Left frontal twist drill for intracranial pressure monitor placement. ICP well controlled. Small to moderate line associated pneumothorax associated with central line placement. Started on Levophed to maintain MAP, CPP 01/29: CT scan yesterday shows interval excellent evacuation of the subdural hemorrhage with improved midline shift from 17 mm to 4 mm. Neuro exam improving. Patient shakes her head to opened eyes couple times during night. Localizes to pain. ICP well controlled. Chest x-ray shows no residual pneumothorax 01/30: Remains intubated off pressors. Examination off sedation shows localizing 4, pupils are equal and reactive. Not following commands. Chest x- ray clear without pneumothorax 01/31: Neuro exam continues to improve. Opening eyes spontaneously and to pain. Localizes to pain 4 not following commands yet but shakes her head. Small apical pneumothorax most likely due to blockage and the pigtail-this was cleared we'll repeat chest x-ray 02/01: Opens eyes to sternal rub. Clearly weaker on the left side. Attempts to follow command on RUE on multiple requests, withdraws on left. Pneumothorax has resolved. 02/02 CT scan with worsening L parietal edema. Off continuous sedation; gets intermittent low dose fentanyl boluses. Opens eyes to sternal rub. Spontaneously moves RUE/RLE/LLE extremities but left is weaker. Localizes on right, does not follow commands during my exam. CT was placed to water seal per trauma. Xray hand ordered due to L hand ecchymosis. Tolerating tube feeds and CPAP. ICP 5-10, Ventric +10 cm. 02/03 Chest tube dislodged yesterday. CXR this morning with increased size of R pneumothorax. Replacing chest tube. Opens eyes to stimulation. Spontaneously moves BLE and RUE with localizing RUE. Temp max 103.1 with leukocytosis 15.9. Sandhu cultures have been sent and are pending. Replacing central line and initiating antimicrobial therapy with cefepime and vancomycin. Plan to continue CPAP trials after chest tube placement. Subjective: 02/[address] R PTX. [address]. Philip states he will place additional pigtail. Ventric removed yesterday due to gram variable rods. ICP monitor removed today. LUE infiltrated with 2% saline overnight around 11 pm. Objective Vital Signs Date Time Temp Pulse Resp B/P Pulse Ox O2 Delivery O2 Flow Rate FiO2 02/04/17 08:46 100 40 02/04/17 06:00 88 02/04/17 04:00 101.3 15 116/55 Intake and Output 02/03/17 02/03/17 02/04/17 08:00 16:00 00:00 Intake Total 868 ml 1001 ml 843 ml Output Total 1105 ml 1200 ml 1380 ml Balance -237 ml -199 ml -537 ml Result Diagram: 02/03/17 0530 02/04/17 0148 Imaging Last 24 hours Impressions Thoracic Spine CT 01/27/171699 Signed Impressions: Service Date/Time: Friday, January 27, 2017 17:20 - CONCLUSION: 1. No fracture or subluxation. 2. Minimal subcutaneous emphysema seen within the upper neck likely related to patient's temporal bone fracture. Eb Guerin MD Pelvis X-Ray 01/27/171699 Signed Impressions: Service Date/Time: Friday, January 27, 2017 16:54 - CONCLUSION: 1. Left pubic rami fractures. Otoniel Crain MD Lumbar Spine CT 01/27/171699 Signed Impressions: Service Date/Time: Friday, January 27, 2017 17:20 - CONCLUSION: 1. No fracture or subluxation of the lumbar spine. 2. There are fractures of the right sacrum discussed in detail on CT the abdomen/pelvis. Eb Guerin MD Head CT 01/27/171699 Signed Impressions: Service Date/Time: Friday, January 27, 2017 17:20 - CONCLUSION: 1. Large acute subdural hematoma along the left frontal parietal and temporal lobes measuring 20 mm in greatest width with possible additional epidural component more superiorly. There is approximately 17 mm of subfalcine herniation to the right as well as diffuse effacement of the left cerebral sulci. 2. Acute right temporal bone fracture. 3. Fluid levels within the right maxillary sinus and left sphenoid sinus. Juan Carlos Jc MD Chest X-Ray 01/27/171699 Signed Impressions: Service Date/Time: Friday, January 27, 2017 16:54 - CONCLUSION: 1. Acute fracture involving the right scapula. 2. Endotracheal tube in good position 3 cm above the dima. Juan Carlos Jc MD Chest CT 01/27/171699 Signed Impressions: Service Date/Time: Friday, January 27, 2017 17:25 - CONCLUSION: 1. Comminuted fracture involving the right scapula. 2. Minimal posterior atelectatic changes bilaterally. Juan Carlos Jc MD Cervical Spine CT 01/27/171699 Signed Impressions: Service Date/Time: Friday, January 27, 2017 17:24 - CONCLUSION: 1. No acute fracture or prevertebral soft tissue swelling. 2. Straightening of the normal cervical lordosis. 3. Cervical spondylosis from C3 through C6. 4. Mild bilateral foraminal narrowing at C3-4, C4-5 and C5-6. Juan Carlos Jc MD Abdomen/Pelvis CT 01/27/171699 Signed Impressions: Service Date/Time: Friday, January 27, 2017 17:25 - CONCLUSION: 1. Acute fractures along the right sacrum as well as the left superior and inferior pubic rami. 2. No intra-abdominal trauma identified. Juan Carlos Jc MD Radius/Ulna X-Ray 01/27/17 0000 Signed Impressions: Service Date/Time: Friday, January 27, 2017 16:54 - CONCLUSION: Soft tissue swelling involving the right mid forearm without underlying radial or ulnar fracture. Juan Carlos Jc MD Chest X-Ray 01/27/17 0000 Signed Impressions: Service Date/Time: Friday, January 27, 2017 21:57 - CONCLUSION: No acute disease. Adequate placement of right jugular central line. Questionable tiny right apical pneumothorax. Followup studies recommended. Eb Guerin MD Objective Remarks Drips: 2% NaCL @ 20 ml/hr GENERAL: Well-nourished, well-developed patient. Off continuous sedation. SKIN: Warm and dry. HEAD: Status post craniotomy. Fiberoptic ICP monitor in place, being removed. EYES: No scleral icterus. No injection or drainage. Pupils 3 mm briskly reactive. NECK: Supple, trachea midline. No JVD or lymphadenopathy.No meningismus CARDIOVASCULAR: Tachycardic, regular, sinus tach on the monitor with rate in the 110s. Without murmurs, gallops, or rubs. RESPIRATORY: Breath sounds diminished on the right. No wheezes Rales or rhonchi. R pigtail chest tube in place, connections and suction tested, no air leak. GASTROINTESTINAL: Abdomen soft, non-tender, nondistended. Bowel sounds present. MUSCULOSKELETAL: No cyanosis,. There is ecchymosis over the left hand. Palpable radial pulses are present bilaterally. There is ecchymosis overlying the right distal forearm. There is swelling left upper arm at infiltration, no erythema. NEURO: Pupils 3 mm briskly reactive. Opens eyes to stimulationand sometimes spontaneously, does not track. + facial grimace. Localizes right upper extremity. Does not follow commands for me. Withdraws bilateral lower extremity (LLE weaker). LUE flaccid. . A/P Assessment and Plan NEURO: Severe acute left hemisphere subdural hematoma with midline shift and mass effect Right temporal bone fracture-nondisplaced - Status post emergent evacuation, EVD and ICP monitor placement by Dr. Bahena - CT head 01/28-excellent evacuation of the subdural hemorrhage with significant improvement in midline shift - F/U CT head 02/02 - L parietal edema appears slightly increased but there is no midline shift. R temporal lobe edema persists. - Monitor ICP-well controlled. EVD removed 02/04 when CSF gram stain resulted gram variable segun. Repeat CT brain no hydrocephalus. - Discussed with NSG, will d/c 2% NaCl, monitor sodium daily, avoid hyponatremia. - Keppra for sz prophylaxis. On depaken 250 bid per trauma surgery. - Neuro exam, steadily improving, L hemiparesis present - Lortab prn pain. Fentanyl prn breakthrough. RESP: Acute Respiratory failure Iatrogenic R pneumothorax - Intubated for airway protection. Daily SBT however mental status precludes extubation. Mechanical ventilation day #9. Patient is improving neurologically but appears she may require trach. Discussed with DR. Hernandez, plans to trach early next week if not able to extubate. - Continue mechanical ventilation, d/c end tidal CO2 monitoring. - Placed R right pigtail chest tube 01/28, with resolution of pneumothorax. This chest tube dislodged on 02/02. Replaced 02/03 due to increased size of PTX. Now persitent PTX, additional pigtail catheter per Dr. Mark Justin every 2 hours when necessary CVS: Hypertension - When necessary labetalol and hydralazine to keep systolic blood pressure less than 150 GI: -Vital 1.5 @ 50 mL per hour per nutrition recommendations., IV Protonix - Having multiple bowel movements. Holding lactulose FEN/RENAL : - Sanchez remains in place because critically ill on mechanical ventilation and in need of accurate I's and O's. Monitor UOP. Monitor BUN/creatinine - Electrolyte replacement per protocol ID: Fever - Patient has right temporal bone fracture with fluid in mastoid air cells - Temp 103 on 02/03 WBC 15.9. CSF with gram variable segun. CSF cell count 102 WBC/267 RBC , glucose normal, protein low . Abx broadened to cefepime/vanc on #2 to address ?Ventriculitis Blood cx, sputum cx, u/a negative 02/02. CVL removed 02/03 Superfical thrombophlebitis R distal cephalic. Endo: Satisfactory glycemic control MSK: Scapular, pelvic, and sacral fractures - No indication for surgery - Conservative and supportive care Xray R forearm and L hand were negative for fractures. DVT GI prophylaxis - Teds SCDs - Started lovenox 40 mg subcut 02/02, ok per discussion with Dr. Bahena.. - Protonix updated on telephone by me on 02/03. Discussed on multidisciplinary trauma rounds. Discussed with NSG. Level 3 Natalia Headley MD Feb 04, 2017 10:51
--- NOTE | 2017-02-04 10:59 | HHI.NSPN ---
(Marques MorenoCash CHRIS) History Chief Complaint: Unable to obtain due to clinical condition. (Marques Moreno) Interval History 01/27: Patient is a middle-aged female who according to her family fell through a garage ceiling landing on the floor one-story down. Positive loss of consciousness. Patient was reportedly unresponsive immediately after the event. No seizure activity reported. She was GCS 3-4 at the scene and brought to [facility] emergency room as a trauma alert per EMS. She was intubated in the emergency room. She was noted to have a fixed dilated left pupil and pinpoint right pupil in the emergency room on initial evaluation. The undersigned reviewed the patient's CT scan images shortly after completion while the patient was in the CT scanning suite. Images revealed a large left hemispheric acute subdural hematoma with approximate 16 mm midline shift, significant effacement of the left ventricle and cisterns. Patient was taken emergently to the operating room from the CT scanning suite. 01/28: The patient is intubated and mechanically ventilated with propofol & fentanyl for sedation. She is on norepinephrine for blood pressure support which Nursing states she is titrating down. Nursing also reported that the patient did squeeze with her hands this morning. The patient was transfused this morning for a haemoglobin of 7.4. 01/29: The patient remains intubated and mechanically ventilated. The propofol & fentanyl drips have been off since 929 this morning. She is no longer on any vasopressors. Saline 3% is infusing. Nursing states she is withdrawing but has not had any eye opening. ICP has been running 4 to 5 on the ventriculostomy per Nursing and that the bolt pressure is not being used since it was reportedly not in proper position. Nursing also reports excessive drainage from the ventriculostomy. 01/30: Patient intubated on minimal sedation. Not opening eyes to verbal or tactile stimulation 01/31: Patient remains intubated on minimal sedation. At this point she is opening her eyes and tracking to verbal stimulation. 02/01: The patient continues to be intubated and mechanically ventilated. The fentanyl was discontinued this morning.Nursing reported that the left pupil appeared slightly larger this morning and that the ventriculostomy ICP has been ranging between 5 and 10. 02/02: The patient is still intubated and mechanically ventilated. She remains off any sedation. Nursing reported that she did follow commands to move the right hand once yesterday. When an EEG was done yesterday the tech reported to Nursing that there was fresh blood to the right side of the head. 02/03: The patient remains intubated and mechanically ventilated. She is noted to be moving the right side extremities spontaneously. Nursing reports that she also was withdrawing on the left to noxious stimuli. The Eye Technician is preparing to replace the chest tube. The patient did spike a temperature to 103.1 yesterday afternoon. 02/04: The patient is still intubated and mechanically ventilated. She is moving the right lower extremity spontaneously. Nursing reports no response to stimuli with the left upper extremity, otherwise she is withdrawing still. The ventriculostomy was withdrawn yesterday due to Gram variable rods noted on the Gram stain off the CSF specimen sent for culture when she spiked her temperature on . (Marques Moreno) System Review Comments Unable to obtain due to clinical condition. (Marques Moreno) Exam Results Vital Signs Date Time Temp Pulse Resp B/P Pulse Ox O2 Delivery O2 Flow Rate FiO2 02/04/17 08:46 100 40 02/04/17 06:00 88 02/04/17 04:00 101.3 15 116/55 Intake and Output 02/03/17 02/03/17 02/04/17 08:00 16:00 00:00 Intake Total 868 ml 1001 ml 843 ml Output Total 1105 ml 1200 ml 1380 ml Balance -237 ml -199 ml -537 ml (Marques Moreno) Physical Examination GENERAL: The patient is intubated and mechanically ventilated w/o any sedation. SKIN: Skin warm & dry. Multiple abrasions & ecchymosis to extremities healing w/ o complication, ecchymosis to left side of head. Right parietal scalp laceration. No rashes or other lesions noted. HEENT: Well approximated left-sided craniotomy w/intact mendel and pressure monitoring bolt & ventriculostomy insertions sites, w/o any evident drainage, erythema or streaking. PERRLA. Orally intubated. OGT. NECK: No JVD, trachea midline. CARDIOVASCULAR: S1S2 w/RRR w/o M/G/R, radial & pedal pulses 2+ bilaterally, cap refill < 2 sec, no pedal edema. Monitor is sinus rhythm w/o any ectopy noted. RESPIRATORY: CTAB w/o W/R/R, equal excursion, nonlaboured, intubated and mechanically ventilated. GASTROINTESTINAL: Abdomen soft, bowel sounds not appreciated, OGT w/enteral feeds. MUSCULOSKELETAL: Scattered abrasions & ecchymosis. No evident deformities or clubbing. NEUROLOGICAL: GCS 6T (E1 V1T M4). No eye opening to voice & noxious stimuli. PERRLA. Spontaneously moving RLE, withdrew BLE to localised noxious stimuli and RUE & BLE to centralised noxious stimuli, no response w/LUE to noxious stimuli. Unable to assess sensation. [place] ICP 8-10 when seen. (Marques Moreno) Lab, Micro, Other Results Allergies Coded Allergies Type Severity Reaction Last Updated Verified No Known Allergies 01/31/17 No Recent Impressions Head CT 02/04/17 0600 Signed Impressions: Service Date/Time: February 04:39 - CONCLUSION: 1. Study is moderately degraded by streak and motion artifact limiting sensitivity. 2. Interval removal of the previously noted ventricular shunt catheter. 3. The low attenuation region in the right temporal lobe is no significant change. 4. No significant change in the left subdural hematoma. Kalin Tate MD Chest X-Ray 02/04/17 0600 Signed Impressions: Service Date/Time: February 02:29 - CONCLUSION: 1. Interval increase in the size of the right pneumothorax. Small bore right-sided chest tube remains in place. 2. No confluent wedge-shaped or effusions. Kalin Tate MD Upper Extremity Ultrasound 02/04/17 0000 Signed Impressions: Service Date/Time: February 07:52 - CONCLUSION: No DVT is identified. Please note that portions of the basilic and cephalic vein are not visualized. Emerson Mariee MD Chest X-Ray 02/03/17 0600 Signed Impressions: Service Date/Time: Friday, February 03, 2017 04:28 - CONCLUSION: Mild interval increase in the size of the moderate right pneumothorax which now surrounds the entire lung periphery. There is questionable mild mediastinal shift to the left. Kalin Tate MD Upper Extremity Ultrasound 02/03/17 0000 Signed Impressions: Service Date/Time: Friday, February 03, 2017 13:16 - CONCLUSION: Superficial thrombosis of the cephalic vein. Israel Dominguez MD FACR Chest X-Ray 02/03/17 0000 Signed Impressions: Service Date/Time: Friday, February 03, 2017 09:50 - CONCLUSION: 1. Right chest tube has been placed and the pneumothorax has decreased in size but a small pneumothorax remains present. Please note that the chest tube is located very peripherally in the inferior right hemithorax. 2. Stable right chest wall soft tissue air. Right scapula fracture remains visualized. Emerson Mariee MD Chest X-Ray 02/02/17 1400 Signed Impressions: Service Date/Time: Thursday, February 02, 2017 13:54 - CONCLUSION: 1. Small caliber right chest tube has been removed. There is a moderate size right pneumothorax. Findings called to Dr. Moreno at the time of dictation. Juan Bajwa MD Head CT 02/02/17 0600 Signed Impressions: Service Date/Time: Thursday, February 02, 2017 04:24 - CONCLUSION: 1. No significant change in the subdural hemorrhage with mild increase in surrounding edema 2. Small area of edema again noted in the right temporal lobe which is mildly more conspicuous. 3. No new hemorrhage or mass effect. There is no significant midline shift now noted. 4. TheThe ventricular shunt catheter remains in place with no hydrocephalus. Kalin Tate MD Hand X-Ray 02/02/17 0000 Signed Impressions: Service Date/Time: Thursday, February 02, 2017 14:00 - CONCLUSION: No acute left hand abnormality is identified. Emerson Mariee MD ///2//2/// 06:00 18:00 06:00 18:00 06:00 18:00 Intake Total 1409 ml 860 ml 1482 ml 1001 ml 1923 ml Output Total 3882 ml 1227 ml 1865 ml 1200 ml 2375 ml Balance -2473 ml -367 ml -383 ml -199 ml -452 ml Intake IV Total 689 ml 400 ml 710 ml 594 ml 1277 ml Tube Feeding 690 ml 400 ml 742 ml 407 ml 646 ml Tube Irrigant 30 ml 60 ml 30 ml Output Urine Total 3700 ml 1125 ml 1750 ml 1000 ml 2325 ml Stool Total 0 ml Tube Feeding Residual Discard 0 ml Chest Tube Drainage Total 6 ml 2 ml 140 ml 50 ml Drainage Total 176 ml 100 ml 115 ml 60 ml # Bowel Movements 4 3 1 Laboratory Tests Test 02/01/17 02/02/17 02/02/17 02/02/17 20:00 00:00 05:00 12:35 Sodium Level 144 MEQ/L 148 MEQ/L 144 MEQ/L 143 MEQ/L White Blood Count 14.8 TH/MM3 Red Blood Count 3.04 MIL/MM3 Hemoglobin 9.4 GM/DL Hematocrit 27.3 % Mean Corpuscular Volume 89.7 FL Mean Corpuscular Hemoglobin 30.7 PG Mean Corpuscular Hemoglobin 34.3 % Concent Red Cell Distribution Width 16.2 % Platelet Count 203 TH/MM3 Mean Platelet Volume 8.7 FL Neutrophils (%) (Auto) 78.3 % Lymphocytes (%) (Auto) 11.6 % Monocytes (%) (Auto) 8.4 % Eosinophils (%) (Auto) 1.5 % Basophils (%) (Auto) 0.2 % Neutrophils # (Auto) 11.6 TH/MM3 Lymphocytes # (Auto) 1.7 TH/MM3 Monocytes # (Auto) 1.2 TH/MM3 Eosinophils # (Auto) 0.2 TH/MM3 Basophils # (Auto) 0.0 TH/MM3 CBC Comment DIFF FINAL Differential Comment Potassium Level 3.6 MEQ/L Chloride Level 109 MEQ/L Carbon Dioxide Level 26.5 MEQ/L Anion Gap 9 MEQ/L Blood Urea Nitrogen 12 MG/DL Creatinine 0.41 MG/DL Estimat Glomerular Filtration 166 ML/MIN Rate Random Glucose 109 MG/DL Calcium Level 8.2 MG/DL Magnesium Level 2.2 MG/DL Total Bilirubin 1.1 MG/DL Aspartate Amino Transf 29 U/L (AST/SGOT) Alanine Aminotransferase 37 U/L (ALT/SGPT) Alkaline Phosphatase 86 U/L Total Protein 5.6 GM/DL Albumin 2.2 GM/DL Test 02/02/17 02/02/17 02/03/17 02/03/17 15:30 19:40 00:00 05:30 Urine Color YELLOW Urine Turbidity CLEAR Urine pH 8.0 Urine Specific [place] 1.019 Urine Protein TRACE mg/dL Urine Glucose (UA) NEG mg/dL Urine Ketones TRACE mg/dL Urine Occult Blood NEG Urine Nitrite NEG Urine Bilirubin NEG Urine Urobilinogen LESS THAN 2.0 MG/DL Urine Leukocyte Esterase NEG Urine RBC LESS THAN 1 /hpf Urine WBC 2 /hpf Urine Mucus FEW /lpf Microscopic Urinalysis Comment CATH-CULT NOT IND Sodium Level 143 MEQ/L 145 MEQ/L 143 MEQ/L White Blood Count 15.9 TH/MM3 Red Blood Count 2.95 MIL/MM3 Hemoglobin 8.7 GM/DL Hematocrit 26.6 % Mean Corpuscular Volume 90.3 FL Mean Corpuscular Hemoglobin 29.6 PG Mean Corpuscular Hemoglobin 32.8 % Concent Red Cell Distribution Width 15.8 % Platelet Count 256 TH/MM3 Mean Platelet Volume 7.9 FL Neutrophils (%) (Auto) 75.6 % Lymphocytes (%) (Auto) 13.0 % Monocytes (%) (Auto) 9.1 % Eosinophils (%) (Auto) 1.8 % Basophils (%) (Auto) 0.5 % Neutrophils # (Auto) 12.0 TH/MM3 Lymphocytes # (Auto) 2.1 TH/MM3 Monocytes # (Auto) 1.4 TH/MM3 Eosinophils # (Auto) 0.3 TH/MM3 Basophils # (Auto) 0.1 TH/MM3 CBC Comment AUTO DIFF Differential Total Cells 100 Counted Neutrophils % (Manual) 68 % Lymphocytes % 12 % Monocytes % 10 % Eosinophils % 3 % Basophils % 1 % Neutrophils # (Manual) 11.8 TH/MM3 Metamyelocytes 3 % Myelocytes 3 % Differential Comment FINAL DIFF MANUAL Platelet Estimate NORMAL Platelet Morphology Comment ENLARGED Polychromasia 2.0 % Basophilic Stippling FAINT Potassium Level 3.9 MEQ/L Chloride Level 110 MEQ/L Carbon Dioxide Level 26.6 MEQ/L Anion Gap 6 MEQ/L Blood Urea Nitrogen 13 MG/DL Creatinine 0.43 MG/DL Estimat Glomerular Filtration 157 ML/MIN Rate Random Glucose 113 MG/DL Calcium Level 8.1 MG/DL Total Bilirubin 0.8 MG/DL Aspartate Amino Transf 16 U/L (AST/SGOT) Alanine Aminotransferase 29 U/L (ALT/SGPT) Alkaline Phosphatase 85 U/L Total Protein 5.5 GM/DL Albumin 2.0 GM/DL Test 02/03/17 02/03/17 02/04/17 15:00 18:15 01:48 CSF Volume (Tube 1) 1.1 ML CSF Supernatant Color (tube 1) CLEAR CSF WBC (Tube 1) 102 /MM3 CSF RBC (Tube 1) 267 /MM3 CSF Neutrophils 63 % CSF Lymphocytes 5 % CSF Monocytes 32 % CSF Glucose 80 MG/DL CSF Total Protein 10.9 MG/DL Sodium Level 141 MEQ/L 143 MEQ/L Vital Signs Date Time Temp Pulse Resp B/P Pulse Ox O2 Delivery O2 Flow Rate FiO2 02/04/17 08:46 100 40 02/04/17 08:46 40 02/04/17 06:00 88 02/04/17 05:15 100 40 02/04/17 04:30 100 100 02/04/17 04:00 101.3 116 15 116/55 100 02/04/17 04:00 40 02/04/17 04:00 116 02/04/17 02:00 112 02/04/17 01:29 100 40 02/04/17 00:00 99.7 108 21 115/56 100 02/04/17 00:00 96 02/04/17 00:00 40 02/03/17 22:00 108 02/03/17 20:21 100 40 02/03/17 20:00 99.8 110 21 119/56 100 02/03/17 20:00 40 02/03/17 20:00 110 02/03/17 18:00 109 02/03/17 16:00 40 02/03/17 16:00 126 02/03/17 16:00 99 40 02/03/17 16:00 102.1 126 28 134/59 100 02/03/17 14:02 126 02/03/17 12:00 120 02/03/17 12:00 102.7 122 23 123/58 100 02/03/17 12:00 40 02/03/17 11:29 100 40 02/03/17 10:00 120 02/03/17 09:59 100 40 02/03/17 09:59 40 02/03/17 08:00 118 02/03/17 08:00 99.5 118 19 120/59 100 02/03/17 08:00 40 02/03/17 07:46 100 40 02/03/17 06:00 108 02/03/17 04:28 100 40 02/03/17 04:00 99.3 96 14 111/56 100 02/03/17 04:00 40 02/03/17 04:00 96 02/03/17 02:00 118 02/03/17 01:10 100 40 02/03/17 00:00 120 02/03/17 00:00 40 02/03/17 00:00 100.5 120 22 121/56 100 02/02/17 22:00 118 02/02/17 20:00 100.0 122 21 118/56 100 02/02/17 20:00 40 02/02/17 20:00 122 02/02/17 19:57 100 40 02/02/17 18:00 124 02/02/17 16:57 100 40 02/02/17 16:00 132 02/02/17 16:00 103.1 132 19 146/64 94 02/02/17 16:00 40 02/02/17 14:00 119 02/02/17 13:31 100 40 02/02/17 12:00 40 02/02/17 12:00 122 02/02/17 12:00 100.5 122 18 139/63 100 02/02/17 10:00 120 02/02/17 09:30 40 02/02/17 09:30 40 02/02/17 09:30 99 40 02/02/17 08:46 100 40 02/02/17 08:00 100.5 120 20 161/60 100 02/02/17 08:00 40 02/02/17 08:00 128 02/02/17 06:00 116 02/02/17 04:20 100 100 02/02/17 04:05 100 40 02/02/17 04:00 40 02/02/17 04:00 99.9 88 16 133/62 100 02/02/17 04:00 88 02/02/17 02:00 110 02/02/17 01:22 100 40 02/02/17 00:00 98 02/02/17 00:00 40 02/02/17 00:00 99.6 98 21 133/60 100 02/01/17 22:47 100 40 02/01/17 22:00 110 02/01/17 21:09 20 02/01/17 21:09 20 02/01/17 20:00 101.9 130 22 136/63 100 02/01/17 20:00 40 02/01/17 20:00 130 02/01/17 19:42 100 40 02/01/17 18:00 134 02/01/17 16:59 100 40 02/01/17 16:00 100.8 123 18 116/59 100 02/01/17 16:00 40 02/01/17 16:00 123 02/01/17 14:00 128 02/01/17 13:05 100 40 02/01/17 12:00 113 02/01/17 12:00 101.3 113 22 127/59 100 02/01/17 12:00 40 (Marques Moreno) Medical Decision Making Impression and Plan Impression: 1. Severe acute left hemisphere subdural hematoma with severe midline shift and mass effect. 2. Right temporal bone fracture-nondisplaced Leukocytosis, interval increase (14.8=>15.9) Anaemia, interval drop (9.4=>8.7) Thrombocytopenia, resolved Sodium 143 this morning Hypokalemia, resolved eGFR WNL Hypophosphatemia,resolved Ventriculostomy w/60 mL drainage prior to be removed. CT brain demonstrates no significant change in the left SDH or the right temporal lobe low attenuation region compared to . T max 102.7 at noon yesterday. Patient with stable neurological response, remains critical. POD #8 () s/p: 1. Left decompressive frontotemporoparietal craniotomy for evacuation of acute subdural hematoma. 2. Left frontal ventriculostomy catheter placement 3. Left frontal twist drill for intracranial pressure monitor placement Plan: Primary management per Eye Technician/Trauma. Frequent neuro checks. Stat CT brain for worsening neuro status. Daily sodium level, maintain sodium WNL. Continuing ventilatory support and full sedation. Seizure prophylaxis. Ulcer prophylaxis. Non chemical DVT prophylaxis. Will d/c 2% saline. Will d/c ICP monitoring bolt. Plan to d/c mendel on POD #10. (Marques Moreno) Attending Statement I have personally seen and examined the patient on 02/04/2017. Pertinent documentation and study results have been reviewed by the undersigned. I have personally developed the treatment plan and performed medical decision making. Agree with findings, exam, and treatment plan as noted above. Patient with mild eyelid movement to deep pain. Not following commands Pupils 3 mm mildly reactive Mild oculocephalic movements ICPs remain stable-ICP monitor discontinued Continue close neurologic checks Remain soft sedation on ventilator support (Nic Bahena MD) Marques Moreno Feb 04, 2017 10:59 Nic Bahena MD Feb 05, 2017 21:10
[2017-02-04] MEDS: VANCOMYCIN INJ 1,500 MG in SODIUM CHLORID 0.9% 500 ML INJ 500 ML IV SCH ×2 (11:01→21:25)
[2017-02-04] MEDS: ENOXAPARIN SODIUM 40 MG/0.4 ML SYRINGE SQ SCH (14:18)
--- NOTE | 2017-02-04 15:04 | HHI.IDPN ---
Subjective Subjective Remarks Patient is a 46-year-old female admitted as a trauma alert. She was apparently working in her house in the garage ceiling and she felt improved some of the rafters, and landed on her head. She was found to have significant traumatic brain injury, and also had some other fracture including scapular fracture and in the pelvic region. The orthopedic injuries were all being treated conservatively. She had significant eye murmur out to on her imaging study of the brain, and underwent emergent surgery on her brain for evacuation of the significant epidural hematoma, placement of a bolt, as well as a ventriculostomy. She has remained on the vent. She was on Unasyn since January 29. Starting February 01 she started having fevers, and no cultures were ordered. CSF culture is showing gram-variable segun on the Gram stain of the broth but it did not grow on culture media. She has been started on cefepime and vancomycin. Patient also has a chest tube for pneumothorax. Her chest x-ray has shown stable findings. Urinalysis unremarkable. She has a central line in the right IJ. Notes reviewed Temps better today Up to 102+ yesterday EVD removed Repeat CSF C/S neg so far First CSF C/S Bacillus and Gm neg coccobacilli On CPAP Antibiotics Vancomycin Cefepime Past Medical History None Allergies: Coded Allergies: No Known Allergies (Unverified , 01/31/17) per Objective . Vital Signs Date Time Temp Pulse Resp B/P Pulse Ox O2 Delivery O2 Flow Rate FiO2 02/04/17 12:00 40 02/04/17 12:00 98.6 109 26 117/55 100 02/04/17 12:00 109 02/04/17 10:00 106 02/04/17 08:46 100 40 02/04/17 08:46 40 02/04/17 08:00 98.6 90 18 113/56 100 02/04/17 08:00 97 02/04/17 08:00 40 02/04/17 06:00 88 02/04/17 05:15 100 40 02/04/17 04:30 100 100 02/04/17 04:00 101.3 116 15 116/55 100 02/04/17 04:00 40 02/04/17 04:00 116 02/04/17 02:00 112 02/04/17 01:29 100 40 02/04/17 00:00 99.7 108 21 115/56 100 02/04/17 00:00 96 02/04/17 00:00 40 02/03/17 22:00 108 02/03/17 20:21 100 40 02/03/17 20:00 99.8 110 21 119/56 100 02/03/17 20:00 40 02/03/17 20:00 110 02/03/17 18:00 109 02/03/17 16:00 40 02/03/17 16:00 126 02/03/17 16:00 99 40 02/03/17 16:00 102.1 126 28 134/59 100 02/03/17 02/03/17 02/04/17 15:00 23:00 07:00 Intake Total 1001 ml 843 ml 1080 ml Output Total 1200 ml 1380 ml 995 ml Balance -199 ml -537 ml 85 ml Intake IV Total 594 ml 482 ml 795 ml Tube Feeding 407 ml 361 ml 285 ml Output Urine Total 1000 ml 1350 ml 975 ml Chest Tube Drainage Total 140 ml 30 ml 20 ml Drainage Total 60 ml # Bowel Movements 1 . Laboratory Tests Test 02/03/17 05:30 White Blood Count 15.9 TH/MM3 Red Blood Count 2.95 MIL/MM3 Hemoglobin 8.7 GM/DL Hematocrit 26.6 % Mean Corpuscular Volume 90.3 FL Mean Corpuscular Hemoglobin 29.6 PG Mean Corpuscular Hemoglobin 32.8 % Concent Red Cell Distribution Width 15.8 % Platelet Count 256 TH/MM3 Mean Platelet Volume 7.9 FL Neutrophils (%) (Auto) 75.6 % Lymphocytes (%) (Auto) 13.0 % Monocytes (%) (Auto) 9.1 % Eosinophils (%) (Auto) 1.8 % Basophils (%) (Auto) 0.5 % Neutrophils # (Auto) 12.0 TH/MM3 Lymphocytes # (Auto) 2.1 TH/MM3 Monocytes # (Auto) 1.4 TH/MM3 Eosinophils # (Auto) 0.3 TH/MM3 Basophils # (Auto) 0.1 TH/MM3 CBC Comment AUTO DIFF Differential Total Cells 100 Counted Neutrophils % (Manual) 68 % Lymphocytes % 12 % Monocytes % 10 % Eosinophils % 3 % Basophils % 1 % Neutrophils # (Manual) 11.8 TH/MM3 Metamyelocytes 3 % Myelocytes 3 % Differential Comment FINAL DIFF MANUAL Platelet Estimate NORMAL Platelet Morphology Comment ENLARGED Polychromasia 2.0 % Basophilic Stippling FAINT Laboratory Tests Test 02/02/17 02/03/17 02/03/17 02/03/17 19:40 00:00 05:30 18:15 Sodium Level 143 MEQ/L 145 MEQ/L 143 MEQ/L 141 MEQ/L Potassium Level 3.9 MEQ/L Chloride Level 110 MEQ/L Carbon Dioxide Level 26.6 MEQ/L Anion Gap 6 MEQ/L Blood Urea Nitrogen 13 MG/DL Creatinine 0.43 MG/DL Estimat Glomerular Filtration 157 ML/MIN Rate Random Glucose 113 MG/DL Calcium Level 8.1 MG/DL Total Bilirubin 0.8 MG/DL Aspartate Amino Transf 16 U/L (AST/SGOT) Alanine Aminotransferase 29 U/L (ALT/SGPT) Alkaline Phosphatase 85 U/L Total Protein 5.5 GM/DL Albumin 2.0 GM/DL Test 02/04/17 01:48 Sodium Level 143 MEQ/L Microbiology Date/Time Procedure Status Source Growth 02/02/17 15:25 Gram Stain - Final Resulted Cerebral Spinal Fluid Shunt Fluid 02/02/17 15:25 CSF Culture - Preliminary Resulted Gram Negative Coccobacilli Bacillus Species Not Anthracis 02/02/17 15:45 Gram Stain - Final Complete Sputum Endotracheal 02/02/17 15:45 Sputum Culture - Final Complete Sputum Endotracheal MODERATE GROWTH NORMAL RESPIRATORY LIZ 02/02/17 18:30 Aerobic Blood Culture - Preliminary Resulted Blood Peripheral NO GROWTH IN 2 DAYS 02/02/17 18:30 Anaerobic Blood Culture - Preliminary Resulted Blood Peripheral NO GROWTH IN 2 DAYS 02/02/17 18:45 Aerobic Blood Culture - Preliminary Resulted Blood Peripheral NO GROWTH IN 2 DAYS 02/02/17 18:45 Anaerobic Blood Culture - Preliminary Resulted Blood Peripheral NO GROWTH IN 2 DAYS 02/03/17 15:00 Gram Stain - Final Resulted Cerebral Spinal Fluid Shunt Fluid 02/03/17 15:00 CSF Culture - Preliminary Resulted Cerebral Spinal Fluid Shunt Fluid NO GROWTH IN 24 HOURS. Physical Exam GENERAL: sedated on the vent; not in respiratory distress. SKIN: Warm and dry. No generalized rash, no ecchymoses and no evidence of embolic lesions. HEAD: Incision L side of head is dry, no redness or drainage. EYES: Shiner conjunctiva. No petechia or hemorrhage. Pupils equal, round and reactive to light. No scleral icterus. No injection or drainage. EARS, NOSE AND THROAT: Nose without bleeding or purulent nasal discharge. She is orally intubated. NECK: Trachea midline. Supple and not tender, no meningeal signs. Line site with no evidence of infection CARDIOVASCULAR: Regular rate and rhythm. No murmurs, rubs or gallops heard RESPIRATORY: Scattered rales, more on R than L. CT site ok. ABDOMEN: Soft, nondistended, NO reaction to deep palpation. Bowel sounds present and normoactive. No organomegaly. EXTREMITIES: No clubbing, cyanosis, or joint effusion. Mild pedal edema. Hands edematous. Well perfused and warm. NEUROLOGICAL: Sedated PSYCHIATRIC: Unable to assess LINE: No evidence of infection : Sanchez in place urine looks ok Assessment & Plan Remarks IMPRESSION New fevers, possible sepsis, source? - ?VAP - has line - ?CSF - has gram variable segun on broth, ?true or contamination TBI, with epidural hematoma S/P OR, has bolt and EVD Respiratory failure RECOMMENDATION Follow C/S - adjust Abx once C/S available Continue Vancomycin and Cefepime Monitor temp Monitor progress Ai Montano MD Feb 04, 2017 15:03
[2017-02-04] MEDS: ACETAMINOPHEN/HYDROcodone 325 MG/5 MG TAB PO PRN (16:20)
--- NOTE | 2017-02-04 16:43 | HHI.PR ---
Subjective Subjective Comments Intubated on vent Allergies: Coded Allergies: No Known Allergies (Unverified , 01/31/17) per Review of Systems All other ROS: Unable to obtain Exam I&O / VS 02/03/17 02/03/17 02/04/17 15:00 23:00 07:00 Intake Total 1001 ml 843 ml 1080 ml Output Total 1200 ml 1380 ml 995 ml Balance -199 ml -537 ml 85 ml Intake IV Total 594 ml 482 ml 795 ml Tube Feeding 407 ml 361 ml 285 ml Output Urine Total 1000 ml 1350 ml 975 ml Chest Tube Drainage Total 140 ml 30 ml 20 ml Drainage Total 60 ml # Bowel Movements 1 Vital Signs Date Time Temp Pulse Resp B/P Pulse Ox O2 Delivery O2 Flow Rate FiO2 02/04/17 16:00 101.7 110 20 111/56 100 02/04/17 16:00 110 02/04/17 16:00 40 02/04/17 14:00 104 02/04/17 12:00 40 02/04/17 12:00 98.6 109 26 117/55 100 02/04/17 12:00 109 02/04/17 10:00 106 02/04/17 08:46 100 40 02/04/17 08:46 40 02/04/17 08:00 98.6 90 18 113/56 100 02/04/17 08:00 97 02/04/17 08:00 40 02/04/17 06:00 88 02/04/17 05:15 100 40 02/04/17 04:30 100 100 02/04/17 04:00 101.3 116 15 116/55 100 02/04/17 04:00 40 02/04/17 04:00 116 02/04/17 02:00 112 02/04/17 01:29 100 40 02/04/17 00:00 99.7 108 21 115/56 100 02/04/17 00:00 96 02/04/17 00:00 40 02/03/17 22:00 108 02/03/17 20:21 100 40 02/03/17 20:00 99.8 110 21 119/56 100 02/03/17 20:00 40 02/03/17 20:00 110 02/03/17 18:00 109 General: Intubated, No acute distress Musculoskeletal: ROM (Within functional limits) Psychiatric: Other (Generalized response to sternal rub; not following to open eyes or focus to voice) Neurologic: Pupils (reactive bilaterally), EOM (right eye laterally deviated), Speech (not verbalizing) Motor: Right Upper Extremity (spontaneously nonpurposively moving), Right Lower Extremity (withdraws), Left Lower Extremity (withdraws to painful stem) Clonus: Negative Objective Micro and Labs Laboratory Tests Test 02/03/17 02/04/17 18:15 01:48 Sodium Level 141 143 Date/Time Procedure Status Source Growth 02/03/17 15:00 Gram Stain - Final Resulted Cerebral Spinal Fluid Shunt Fluid 02/03/17 15:00 CSF Culture - Preliminary Resulted Cerebral Spinal Fluid Shunt Fluid NO GROWTH IN 24 HOURS. 02/02/17 18:45 Aerobic Blood Culture - Preliminary Resulted Blood Peripheral NO GROWTH IN 2 DAYS 02/02/17 18:45 Anaerobic Blood Culture - Preliminary Resulted Blood Peripheral NO GROWTH IN 2 DAYS Assessment and Plan Diagnosis: (1) Traumatic brain injury Encounter type: subsequent encounter Assessment 1. Traumatic brain injury 01/27/17 status post fall including large acute subdural hematoma left frontal temporal parietal area measuring 20 mm with possible epidural components superiorly; 7 mm of subfalcine herniation to the right with diffuse effacement of the left cerebral sulci and right temporal fracture status post left decompressive frontotemporal parietal craniotomy with evacuation of subdural hematoma with placement of ICP monitor and ventriculostomy. Now [place] level 3 2. Associated injuries include: -Left superior and inferior pubic rami fracture -Right sacral fracture -Right scapular fracture Plan 1. PT/OT providing range of motion. Patient currently dependent for all mobility and ADLs 2. Speech therapy consulted to begin coma stim 3. Appreciate neuropsychology consult and follow-up 4. SCDs in place for VTE prophylaxis 5. Continue to reposition every 2 hours to protect skin 6. Patient will likely need ongoing inpatient rehabilitation at discharge. Will follow in conjunction with case management 7. Will continue follow while hospitalized and at discharge. Terri Springer MD Feb 04, 2017 16:43
--- NOTE | 2017-02-04 17:29 | HHI.CCPN ---
Subjective Brief History severe traumatic brain injury. Dunlap coma scale 3. Large left temporoparietal subdural hematoma, right basal skull fracture through the petrous bone with extrusion of some brain matter on the right, fracture of the right scapula, left superior inferior ramus pubic fracture with minimal displacement and a right sacral fracture. Patient will be taken immediately to the operating room. Patient underwent a left frontotemporal craniectomy with evacuation of subdural hematoma and placement of ventriculostomy Orthopedic consult was obtained and no further operative management will be instituted 24 Hour Review/Hospital Course Patient has been in the ICU overnight intubated and ventilated 01/29/17 Neurologic status is unchanged ICP remains low Pupils are equal about 2 mm and somewhat reactive Patient remains on propofol fentanyl Hypertonic 3% saline at 30 cc/h Keppra No clinical suspicion of seizures 01/30/17 Patient is withdrawing all 4 extremities and localizes and opened her eyes ICP remains low around 8 mmHg Removed from propofol and fentanyl or any form of sedation Sodium 158 and hypertonic saline removed Remains intubated and ventilated and starting to pickup on her own the rate 01/31 open eyes spontaneously-move extremities ICP around 10 mmHg ventriculostomy 110cc/8hrs tolerating CPAP 02/01/17 ICP remains low around 8-10 mmHg Probably ventriculostomy can be safely removed soon as per neurosurgery Patient opening eyes and trying to follow some commands moves both lower extremities and right arm but very little in the left arm Patient is definitely neurologically improving Tolerated CPAP for about 4 hours 02/02/17 Patient neurologically unchanged. Opens eyes to sternal rub and moves all 4 extremities right more than left as described yesterday Does not follow commands Repeat CT scan shows evolving parietal trauma with edema however no new changes EEG consistent with encephalopathy and no seizures Patient is on Keppra and valproic acid. In this case valproic acid has been added by neuropsychology for unrelated reasons ICP remains around 8-9 mmHg and ventriculostomy is a 10 cm Will be probably able to remove either ICP bolt, ventriculostomy or both soon as per neurosurgery 02/04/17 Neurologically slightly improved patient's opening eyes Moves extremities but left side is clearly weaker than the right Right chest drain in position however still apical pneumothorax which is enlarging and we'll place another anterior drain Patient spiked fever to 103 yesterday Triple-lumen removed Venous ultrasound did not reveal any deep venous thrombosis in the arm or the shoulder girdle Patient doing well at this time continue antibiotics Objective Vital Signs Date Time Temp Pulse Resp B/P Pulse Ox O2 Delivery O2 Flow Rate FiO2 02/04/17 16:00 101.7 110 20 111/56 100 02/04/17 16:00 40 Intake and Output 02/03/17 02/03/17 02/04/17 08:00 16:00 00:00 Intake Total 868 ml 1001 ml 843 ml Output Total 1105 ml 1200 ml 1380 ml Balance -237 ml -199 ml -537 ml Result Diagram: 02/03/17 0530 02/04/17 0148 Other Results Microbiology Date/Time Procedure Status Source Growth 02/02/17 15:45 Gram Stain - Final Complete Sputum Endotracheal 02/02/17 15:45 Sputum Culture - Final Complete Sputum Endotracheal MODERATE GROWTH NORMAL RESPIRATORY [facility] Imaging Last [address] 02/04/17 0600 Signed Impressions: Service Date/Time: February 04:39 - CONCLUSION: 1. Study is moderately degraded by streak and motion artifact limiting sensitivity. 2. Interval removal of the previously noted ventricular shunt catheter. 3. The low attenuation region in the right temporal lobe is no significant change. 4. No significant change in the left subdural hematoma. Kalin Tate MD Chest X-Ray 02/04/17 0600 Signed Impressions: Service Date/Time: February 02:29 - CONCLUSION: 1. Interval increase in the size of the right pneumothorax. Small bore right-sided chest tube remains in place. 2. No confluent wedge-shaped or effusions. Kalin Tate MD Upper Extremity Ultrasound 02/04/17 0000 Signed Impressions: Service Date/Time: February 07:52 - CONCLUSION: No DVT is identified. Please note that portions of the basilic and cephalic vein are not visualized. Emerson Mariee MD Exam [employer] Slightly more awake opens eyes moves the right side of the body Hemodynamic/Cardiac Hemodynamically remains stable Pulmonary/Respiratory Bilateral breath sounds good A gradient Abdomen/GI Nutrition Abdomen soft enteral feeds tolerated Renal/I&O Renal function all of preserved good urine output Assessment and Plan Plan ICP satisfactory level CPP as well neuro status improving HD stable monitor NA-off hyperosmolar therapy CT right to suction continue tube feeds discuss chemical DVT prophylaxis with NS Attestation Plan Wean vent as tolerated and allow for CPAP trials At this point neurologic status does not allow extubation because patient could not protect her upper airway so likelihood this patient will require tracheostomy early next week provided she doesn't wake up more Will place another chest drain anteriorly today [employer] care greatly appreciated Critical-care 38 minutes Noemy Philip MD Feb 04, 2017 17:29
[2017-02-04] MEDS: PANTOPRAZOLE SODIUM 40 MG VIAL IV SCH (17:42)
[2017-02-04] MEDS ORDERED: LIDOCAINE 1%/EPINEPHrine 1:100,000 SOLN 30 ML VIAL ONE (19:15)
--- NOTE | 2017-02-04 20:23 | RADRPT ---
EXAM DATE/TIME: 02/04/2017 19:42 [facility] COMPARISON: CHEST SINGLE AP, February 04, 2017, 2:29. INDICATIONS : Right side chest tube placement. MEDICAL HISTORY : intracranial hemorrhage SURGICAL HISTORY : Craniotomy. ENCOUNTER: Subsequent ACUITY: 2 weeks PAIN SCORE: Non-responsive. LOCATION: Bilateral chest FINDINGS: Interval placement of a right chest tube at the apex with reexpansion of the right lung. Pigtail cat heter tube remains partially projected over lower right chest. The lungs are clear. Gastric tube ti p and side-port project within the stomach. Both hemidiaphragms well delineated. CONCLUSION: Interval placement of right chest tube with reexpansion of the right lung. No residual pneumothorax. Chris Estrada MD on February 04, 2017 at 20:20 Board Certified Radiologist. This report was verified electronically.
[2017-02-04] MEDS ORDERED: LIDOCAINE 1%/EPINEPHrine 1:100,000 SOLN 50 ML VIAL OTHER PRN (20:30)
--- NOTE | 2017-02-04 21:18 | MP ---
cc: MD KAYLA,NOEMY DATE OF SURGERY: 02/04/2017. PREOPERATIVE DIAGNOSIS: 1. Persistent anterior pneumothorax. 2. Respiratory failure. 3. Head injury. POSTOPERATIVE DIAGNOSIS: 1. Persistent anterior pneumothorax. 2. Respiratory failure. 3. Head injury. OPERATIVE PROCEDURE PERFORMED: Right anterior pigtail 14-Omani chest catheter placement. SURGEON: Noemy Philip M.D. ANESTHESIA: 1% Xylocaine and sedation ESTIMATED BLOOD LOSS: Minimal. DESCRIPTION OF THE PROCEDURE IN DETAIL: The patient was prepped and draped in the usual fashion. The area was filtrated with 1% Xylocaine. A small incision was made and deepened down with a hemostat over the rib and then a 14-Omani pigtail catheter inserted. The guide was removed and then the catheter was connected to a Pleur-Evac and sutured in place with 0-silk. Dressing applied. The patient tolerated the procedure well. Chest x-ray obtained. Noemy WINKLER/MARIA GUADALUPE /7:29 PM /9:14 PM
[2017-02-05] VITALS (18 sets, daily range): BP systolic 110–140; BP diastolic 52–62; PULSE 94–120; RESP 14–28; TEMP 99.1–102.7; O2SAT 95–100
[2017-02-05] MEDS: CEFEPIME INJ 2,000 MG in SODIUM CHLORIDE 0.9% INJ 100 ML IV SCH ×3 (01:06→16:10)
--- NOTE | 2017-02-05 06:29 | RADRPT ---
EXAM DATE/TIME: 02/05/2017 05:29 [facility] COMPARISON: CHEST SINGLE AP, February 04, 2017, 19:42. INDICATIONS : Short of breath. Followup right pneumothorax. MEDICAL HISTORY : intracranial hemorrhage SURGICAL HISTORY : Craniotomy. ENCOUNTER: Subsequent ACUITY: 2 weeks PAIN SCORE: Non-responsive. LOCATION: Bilateral chest FINDINGS: The cardiac silhouette is normal in transverse diameter. The lungs are free of acute parenchymal opac ity. No effusions are identified. Support lines and tubes are in satisfactory position. A right chest tube is in place. There is no evidence of pneumothorax. CONCLUSION: 1. There is no evidence of pneumothorax. Luis Angel Bulolck MD on February 05, 2017 at 6:27 Board Certified Radiologist. This report was verified electronically.
[2017-02-05 07:32] LABS: AUTOMATED NEUTROPHIL # 19.5 TH/MM3 (1.8-7.7); BASOPHIL # 0.3 TH/MM3 (0-0.2); BASOPHIL % 1.1 % (0.0-2.0); EOSINOPHIL # 0.7 TH/MM3 (0-0.4); EOSINOPHIL % 2.6 % (0.0-4.0); HEMATOCRIT 28.7 % (35.0-46.0); LYMPH % 9.7 % (9.0-44.0); LYMPHOCYTE # 2.4 TH/MM3 (1.0-4.8); MEAN CELL VOLUME 90.2 FL (80.0-100.0); MEAN CORPUSCULAR HEMOGLOBIN 30.4 PG (27.0-34.0); MEAN CORPUSCULAR HGB CONC 33.6 % (32.0-36.0); MONO % 8.2 % (0.0-8.0); NEUT % 78.4 % (16.0-70.0); PLATELET COUNT 439 TH/MM3 (150-450); RED BLOOD COUNT 3.18 MIL/MM3 (4.00-5.30); RED CELL DISTRIBUTION WIDTH 16.3 % (11.6-17.2); WHITE BLOOD COUNT 24.9 TH/MM3 (4.0-11.0)
[2017-02-05 07:50] LABS: ALKALINE PHOSPHATASE 125 U/L (45-117); ALT (GPT) 26 U/L (10-53); ANION GAP 7 MEQ/L (5-15); AST (GOT) 24 U/L (15-37); BICARBONATE 26.6 MEQ/L (21.0-32.0); CHLORIDE 104 MEQ/L (98-107); GLOMERULAR FILTRATION RATE 141 ML/MIN (>89); POTASSIUM 4.9 MEQ/L (3.5-5.1); SODIUM (NA) 138 MEQ/L (136-145)
[2017-02-05 07:52] LABS: BLOOD UREA NITROGEN 16 MG/DL (7-18); TOTAL BILIRUBIN ADULT 0.8 MG/DL (0.2-1.0)
[2017-02-05] MEDS: CHLORHEXIDINE 0.12% (ORAL KIT) 15 ML CUP MT SCH ×2 (08:00→20:54)
[2017-02-05 08:01] LABS: HEMO FLAGS AUTO DIFF
[2017-02-05 08:03] LABS: BANDS 3 % (0-6); CORRECTED NUCLEATED RBC 1 /100 WBC (0-0); EOSINOPHILS 4 % (0-4); METAMYELOCYTES 1 % (0-1); NEUTROPHIL # MANUAL DIFF 18.4 TH/MM3 (1.8-7.7); PLATELET ESTIMATE SMEAR HIGH (NORMAL); POLYS (SEG NEUTROPHILS) 70 % (16-70); SCAN/DIFF FINAL DIFF MANUAL; WBC DIFF SAMPLE 100
[2017-02-05 08:04] LABS: PLATELET MORPHOLOGY NORMAL (NORMAL); TOXIC VACUOLATION PRESENT (NONE SEEN)
[2017-02-05 08:05] LABS: ACANTHOCYTES OCC (NORMAL); POLYCHROMASIA 2.8 % (0.0-1.9)
[2017-02-05] MEDS: DOCUSATE SODIUM 50 MG/SENNA 8.6 MG TAB PO SCH ×2 (08:35→20:54)
[2017-02-05] MEDS: VALPROIC ACID SYRUP 250 MG/5 ML UDC PO SCH ×3 (08:35→18:08)
[2017-02-05] MEDS: ACETAMINOPHEN 325 MG TAB PO PRN ×2 (08:36→16:09)
[2017-02-05] MEDS: SODIUM CHLORIDE 0.9% FLUSH 10 ML FLUSH IV FLUSH SCH ×2 (08:38→21:00)
[2017-02-05] MEDS: BISACODYL 10 MG SUPP RECTAL SCH (08:39)
[2017-02-05] MEDS: levETIRAcetam INJ 500 MG in SODIUM CHLORIDE 0.9% INJ 100 ML IV SCH ×2 (09:21→20:54)
[2017-02-05] MEDS ORDERED: PHARMACY ORDERED LAB ONE (09:45)
[2017-02-05] MEDS: VANCOMYCIN INJ 1,500 MG in SODIUM CHLORID 0.9% 500 ML INJ 500 ML IV SCH ×2 (10:03→18:46)
--- NOTE | 2017-02-05 10:38 | HHI.IDPN ---
Subjective Subjective Remarks Patient is a 46-year-old female admitted as a trauma alert. She was apparently working in her house in the garage ceiling and she felt improved some of the rafters, and landed on her head. She was found to have significant traumatic brain injury, and also had some other fracture including scapular fracture and in the pelvic region. The orthopedic injuries were all being treated conservatively. She had significant eye murmur out to on her imaging study of the brain, and underwent emergent surgery on her brain for evacuation of the significant epidural hematoma, placement of a bolt, as well as a ventriculostomy. She has remained on the vent. She was on Unasyn since January 29. Starting February 01 she started having fevers, and no cultures were ordered. CSF culture is showing gram-variable segun on the Gram stain of the broth but it did not grow on culture media. She has been started on cefepime and vancomycin. Patient also has a chest tube for pneumothorax. Her chest x-ray has shown stable findings. Urinalysis unremarkable. She has a central line in the right IJ. Notes reviewed Still with intermittent fevers Has second R CT placed yesterday Repeat CSF C/S neg so far First CSF C/S Bacillus and sensitive Acinetobacter WBC higher today CXR no consolidation Antibiotics Vancomycin Cefepime Lines PIV Past Medical History None Allergies: Coded Allergies: No Known Allergies (Unverified , 01/31/17) per Objective . Vital Signs Date Time Temp Pulse Resp B/P Pulse Ox O2 Delivery O2 Flow Rate FiO2 02/05/17 08:17 100 40 02/05/17 08:00 111 02/05/17 08:00 40 02/05/17 06:00 120 02/05/17 04:49 100 40 02/05/17 04:00 100.7 106 20 113/57 100 02/05/17 04:00 40 02/05/17 04:00 106 02/05/17 02:00 98 02/05/17 01:41 100 40 02/05/17 00:00 96 02/05/17 00:00 40 02/05/17 00:00 99.1 96 19 110/52 100 02/04/17 22:51 14 02/04/17 22:10 100 40 02/04/17 22:00 90 02/04/17 20:00 101.9 100 15 106/51 100 02/04/17 20:00 100 02/04/17 20:00 40 02/04/17 19:52 100 40 02/04/17 18:00 85 02/04/17 17:28 100 40 02/04/17 16:00 101.7 110 20 111/56 100 02/04/17 16:00 110 02/04/17 16:00 40 02/04/17 14:00 104 02/04/17 12:00 40 02/04/17 12:00 98.6 109 26 117/55 100 02/04/17 12:00 109 02/04/17 02/04/17 02/05/17 15:00 23:00 07:00 Intake Total 1345 ml 634 ml 1015 ml Output Total 2000 ml 835 ml 1824 ml Balance -655 ml -201 ml -809 ml Intake IV Total 877 ml 243 ml 653 ml Tube Feeding 408 ml 361 ml 362 ml Tube Irrigant 60 ml 30 ml Output Urine Total 1925 ml 825 ml 1800 ml Stool Total 25 ml Chest Tube Drainage Total 50 ml 10 ml 24 ml # Bowel Movements 1 1 . Laboratory Tests Test 02/05/17 06:39 White Blood Count 24.9 TH/MM3 Red Blood Count 3.18 MIL/MM3 Hemoglobin 9.7 GM/DL Hematocrit 28.7 % Mean Corpuscular Volume 90.2 FL Mean Corpuscular Hemoglobin 30.4 PG Mean Corpuscular Hemoglobin 33.6 % Concent Red Cell Distribution Width 16.3 % Platelet Count 439 TH/MM3 Mean Platelet Volume 8.8 FL Neutrophils (%) (Auto) 78.4 % Lymphocytes (%) (Auto) 9.7 % Monocytes (%) (Auto) 8.2 % Eosinophils (%) (Auto) 2.6 % Basophils (%) (Auto) 1.1 % Neutrophils # (Auto) 19.5 TH/MM3 Lymphocytes # (Auto) 2.4 TH/MM3 Monocytes # (Auto) 2.0 TH/MM3 Eosinophils # (Auto) 0.7 TH/MM3 Basophils # (Auto) 0.3 TH/MM3 CBC Comment AUTO DIFF Differential Total Cells 100 Counted Neutrophils % (Manual) 70 % Band Neutrophils % 3 % Lymphocytes % 13 % Monocytes % 9 % Eosinophils % 4 % Neutrophils # (Manual) 18.4 TH/MM3 Metamyelocytes 1 % Nucleated Red Blood Cells 1 /100 WBC Differential Comment FINAL DIFF MANUAL Toxic Vacuolation PRESENT Platelet Estimate HIGH Platelet Morphology Comment NORMAL Polychromasia 2.8 % Acanthocytes OCC Laboratory Tests Test 02/03/17 02/04/17 02/05/17 18:15 01:48 06:39 Sodium Level 141 MEQ/L 143 MEQ/L 138 MEQ/L Potassium Level 4.9 MEQ/L Chloride Level 104 MEQ/L Carbon Dioxide Level 26.6 MEQ/L Anion Gap 7 MEQ/L Blood Urea Nitrogen 16 MG/DL Creatinine 0.47 MG/DL Estimat Glomerular Filtration 141 ML/MIN Rate Random Glucose 101 MG/DL Calcium Level 7.9 MG/DL Total Bilirubin 0.8 MG/DL Aspartate Amino Transf 24 U/L (AST/SGOT) Alanine Aminotransferase 26 U/L (ALT/SGPT) Alkaline Phosphatase 125 U/L Total Protein 5.9 GM/DL Albumin 2.3 GM/DL Microbiology Date/Time Procedure Status Source Growth 02/02/17 15:25 Gram Stain - Final Resulted Cerebral Spinal Fluid Shunt Fluid 02/02/17 15:25 CSF Culture - Preliminary Resulted Acinetobacter Baumannii/Haemol Bacillus Species Not Anthracis 02/02/17 15:45 Gram Stain - Final Complete Sputum Endotracheal 02/02/17 15:45 Sputum Culture - Final Complete Sputum Endotracheal MODERATE GROWTH NORMAL RESPIRATORY LIZ 02/02/17 18:30 Aerobic Blood Culture - Preliminary Resulted Blood Peripheral NO GROWTH IN 2 DAYS 02/02/17 18:30 Anaerobic Blood Culture - Preliminary Resulted Blood Peripheral NO GROWTH IN 2 DAYS 02/02/17 18:45 Aerobic Blood Culture - Preliminary Resulted Blood Peripheral NO GROWTH IN 2 DAYS 02/02/17 18:45 Anaerobic Blood Culture - Preliminary Resulted Blood Peripheral NO GROWTH IN 2 DAYS 02/03/17 15:00 Gram Stain - Final Resulted Cerebral Spinal Fluid Shunt Fluid 02/03/17 15:00 CSF Culture - Preliminary Resulted Cerebral Spinal Fluid Shunt Fluid NO GROWTH IN 48 HOURS. Imaging Chest X-Ray 02/05/17 06 Signed Impressions: Service Date/Time: Sunday, February 05, 2017 05:29 - CONCLUSION: 1. There is no evidence of pneumothorax. Luis Angel Bullock MD Head CT 02/04/17 06 Signed Impressions: Service Date/Time: February 04:39 - CONCLUSION: 1. Study is moderately degraded by streak and motion artifact limiting sensitivity. 2. Interval removal of the previously noted ventricular shunt catheter. 3. The low attenuation region in the right temporal lobe is no significant change. 4. No significant change in the left subdural hematoma. Kalin Tate MD Upper Extremity Ultrasound 02/04/17 Signed Impressions: Service Date/Time: February 07:52 - CONCLUSION: No DVT is identified. Please note that portions of the basilic and cephalic vein are not visualized. Emerson Mariee MD Hand X-Ray 02/02/17 Signed Impressions: Service Date/Time: Thursday, February 02, 2017 14:00 - CONCLUSION: No acute left hand abnormality is identified. Emerson Mariee MD Thoracic Spine CT [id number]/[id number] Signed Impressions: Service Date/Time: Friday, January 27, 2017 17:20 - CONCLUSION: 1. No fracture or subluxation. 2. Minimal subcutaneous emphysema seen within the upper neck likely related to patient's temporal bone fracture. Eb Guerin MD Pelvis X-Ray [id number] Signed Impressions: Service Date/Time: Friday, January 27, 2017 16:54 - CONCLUSION: 1. Left pubic rami fractures. Otoniel Crain MD Lumbar Spine CT [id number]/171699 Signed Impressions: Service Date/Time: Friday, January 27, 2017 17:20 - CONCLUSION: 1. No fracture or subluxation of the lumbar spine. 2. There are fractures of the right sacrum discussed in detail on CT the abdomen/pelvis. Eb Guerin MD Chest CT [id number]/[id number] Signed Impressions: Service Date/Time: Friday, January 27, 2017 17:25 - CONCLUSION: 1. Comminuted fracture involving the right scapula. 2. Minimal posterior atelectatic changes bilaterally. Juan Carlos Jc MD Cervical Spine CT [id number]/[id number] Signed Impressions: Service Date/Time: Friday, January 27, 2017 17:24 - CONCLUSION: 1. No acute fracture or prevertebral soft tissue swelling. 2. Straightening of the normal cervical lordosis. 3. Cervical spondylosis from C3 through C6. 4. Mild bilateral foraminal narrowing at C3-4, C4-5 and C5-6. Juan Carlos cJ MD Abdomen/Pelvis CT 01/27/17 1700 Signed Impressions: Service Date/Time: Friday, January 27, 2017 17:25 - CONCLUSION: 1. Acute fractures along the right sacrum as well as the left superior and inferior pubic rami. 2. No intra-abdominal trauma identified. Juan Carlos Jc MD Radius/Ulna X-Ray 01/27/17 0000 Signed Impressions: Service Date/Time: Friday, January 27, 2017 16:54 - CONCLUSION: Soft tissue swelling involving the right mid forearm without underlying radial or ulnar fracture. Juan Carlos Jc MD Physical Exam GENERAL: sedated on the vent; not in respiratory distress. SKIN: Warm and dry. No generalized rash HEAD: Incision L side of head is dry, no redness or drainage. Previous tubes site in scalp dry EYES: [place] conjunctiva. No petechia or hemorrhage. Pupils equal, round and reactive to light. No scleral icterus. No injection or drainage. EARS, NOSE AND THROAT: Nose without bleeding or purulent nasal discharge. She is orally intubated. NECK: Trachea midline. Supple and not tender, no meningeal signs. Line site with no evidence of infection CARDIOVASCULAR: Regular rate and rhythm. No murmurs, rubs or gallops heard RESPIRATORY: Scattered rales, more on R than L. 2 CT sites ok. ABDOMEN: Soft, nondistended, NO reaction to deep palpation. Bowel sounds present and normoactive. No organomegaly. EXTREMITIES: No clubbing, cyanosis, or joint effusion. Mild pedal edema. Hands edematous. Well perfused and warm. NEUROLOGICAL: Sedated PSYCHIATRIC: Unable to assess LINE: No evidence of infection : Sanchez in place urine looks ok Assessment & Plan Remarks IMPRESSION New fevers, possible sepsis, source? - ?VAP - has line - ?CSF - has Acinetobacter and Bacillus; repeat negative; ?significance, ? colonization TBI, with epidural hematoma S/P OR, has bolt and EVD Respiratory failure Leukocytosis worse, ?>reactive - CXR negative - nothing new on C/S RECOMMENDATION Follow C/S Follow CBC Repeat 2 BC today Continue Vancomycin and Cefepime Monitor temp Monitor progress Spoke with daughter Dr Dominguez covering this weekend Ai Montano MD Feb 05, 2017 10:38
--- NOTE | 2017-02-05 11:38 | HHI.PR ---
Neuropsych Emotional Emotional: UnabletoAssess: Emotional, Anxious/Fearful, Depressed/Sad, Hostile/ Resentful, Irritable/Angry/Frustrate, Labile, Constricted/Blunted Behavior Behavior: Unable to Asses: Behavior, Coping/Acceptance, Cooperative w/ Treatment, Motivation, Frustration Tolerance/[place], Impulsive/Agitated, Suicidal/ Homicidal Risk Cognitive Cognitive: Unable to Asses: Cognitive, Attention/Concentration, Confused/ Orientation, Insight/Awareness, Judgement/Problem-Solving, Memory Psychosocial Psychosocial: Intact: Psychosocial, Family/Other Adjustment Progress Notes/Response to Tx Contents of Sessions: Adjustment, Level of Consciousness Time with Patient: 15 minutes Premorbid psychological status Premorbid Cognitive, Emotional and Behavioral Status: Deferred. No family present to ascertain premorbid abilities. Behavioral Reactions of Patient and Family/Support System: Deferred. The patients family is likley experiencing ongoing issues of adjustment given the nature of the injury, and this aspect of recovery will require ongoing monitoring. Emotional/Behavioral Status of Patient and Family/Support System: Deferred. Pertinent issues, if appropriate to this patients clinical care, are described in detail above. Maximizing acute care outcome It is recommended that the patient be monitored for emergent behavioral impulsivity as the medical condition evolves. This patients neuropathological challenges may limit their rehabilitation potential going forward, and these challenges will require specialized therapeutic skills to maximize outcome. Additionally, the patients family is experiencing ongoing issues of adjustment given the traumatic nature of the injury, and they may benefit from ongoing psychological assistance. Anticipated Problems Ongoing areas of concern will include behavioral impulsivity, lack of insight and judgment, which is expected to improve with time and treatment. Presently , the patient unresponsive, intubated and sedated. Treatment Plan This clinician will continue to follow with you throughout the course of this patients acute care treatment, and I will be available to meet with the patient s family/support system to facilitate their understanding and the ongoing care of their family member. The goals of neuropsychological intervention shall be both educational and supportive to the family/support system as is deemed clinically appropriate. [facility] Level: III:Localized response-total assist Impression This is a 46 year old woman s/p TBI 2T fall on 01/27/2017, with large left temporoparietal SDH, right basal skull fracture through petrous bone with extrusion of brain matter on the right, and is s/p DC/ventriculostomy placement. 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 This is day 9 post injury. The patient is opening her eyes spontaneously, moves her extremities, right greater than left and is on no sedation. Neurobehaviorally , she appears a [place] III moving to IV. She is on Valproic Acid 250 TID for restlessness/agitation. I will continue to follow. Luis Murphy PhD Feb 05, 2017 11:38 am
[2017-02-05] MEDS: ENOXAPARIN SODIUM 40 MG/0.4 ML SYRINGE SQ SCH (13:43)
--- NOTE | 2017-02-05 16:45 | HHI.CCPN ---
Subjective Brief History severe traumatic brain injury. [place] coma scale 3. Large left temporoparietal subdural hematoma, right basal skull fracture through the petrous bone with extrusion of some brain matter on the right, fracture of the right scapula, left superior inferior ramus pubic fracture with minimal displacement and a right sacral fracture. Patient will be taken immediately to the operating room. Patient underwent a left frontotemporal craniectomy with evacuation of subdural hematoma and placement of ventriculostomy Orthopedic consult was obtained and no further operative management will be instituted 24 Hour Review/Hospital Course Patient has been in the ICU overnight intubated and ventilated 01/29/17 Neurologic status is unchanged ICP remains low Pupils are equal about 2 mm and somewhat reactive Patient remains on propofol fentanyl Hypertonic 3% saline at 30 cc/h Keppra No clinical suspicion of seizures 01/30/17 Patient is withdrawing all 4 extremities and localizes and opened her eyes ICP remains low around 8 mmHg Removed from propofol and fentanyl or any form of sedation Sodium 158 and hypertonic saline removed Remains intubated and ventilated and starting to pickup on her own the rate 01/31 open eyes spontaneously-move extremities ICP around 10 mmHg ventriculostomy 110cc/8hrs tolerating CPAP 02/01/17 ICP remains low around 8-10 mmHg Probably ventriculostomy can be safely removed soon as per neurosurgery Patient opening eyes and trying to follow some commands moves both lower extremities and right arm but very little in the left arm Patient is definitely neurologically improving Tolerated CPAP for about 4 hours 02/02/17 Patient neurologically unchanged. Opens eyes to sternal rub and moves all 4 extremities right more than left as described yesterday Does not follow commands Repeat CT scan shows evolving parietal trauma with edema however no new changes EEG consistent with encephalopathy and no seizures Patient is on Keppra and valproic acid. In this case valproic acid has been added by neuropsychology for unrelated reasons ICP remains around 8-9 mmHg and ventriculostomy is a 10 cm Will be probably able to remove either ICP bolt, ventriculostomy or both soon as per neurosurgery 02/04/17 Neurologically slightly improved patient's opening eyes Moves extremities but left side is clearly weaker than the right Right chest drain in position however still apical pneumothorax which is enlarging and we'll place another anterior drain Patient spiked fever to 103 yesterday Triple-lumen removed Venous ultrasound did not reveal any deep venous thrombosis in the arm or the shoulder girdle Patient doing well at this time continue antibiotics 02/05/17 off sedation slowly emerging CXR stable-keep drain on suction Objective Vital Signs Date Time Temp Pulse Resp B/P Pulse Ox O2 Delivery O2 Flow Rate FiO2 02/05/17 16:00 116 02/05/17 16:00 101.8 16 140/62 100 02/05/17 16:00 40 Intake and Output 02/04/17 02/04/17 02/05/17 08:00 16:00 00:00 Intake Total 1080 ml 1345 ml 634 ml Output Total 995 ml 2000 ml 835 ml Balance 85 ml -655 ml -201 ml Result Diagram: 02/05/17 0639 02/05/17 0639 Imaging Last 24 hours Impressions Chest X-Ray 02/05/17 0600 Signed Impressions: Service Date/Time: Sunday, February 05, 2017 05:29 - CONCLUSION: 1. There is no evidence of pneumothorax. Luis Angel Bullock MD Exam SHACTOR GCS 9t Hemodynamic/Cardiac stable Pulmonary/Respiratory clear b/l Abdomen/GI Nutrition soft,tolerating tube feeds Urinary Catheter Assessment Urinary Catheter: Yes Vascular Central Line Catheter Vascular Central Line Catheter: No Assessment and Plan Plan neuro status improving HD stable CT right to suction continue tube feeds start SBT-needs to have better mental status for extubation Antoinette Garner MD Feb 05, 2017 16:45
[2017-02-05] MEDS: PANTOPRAZOLE SODIUM 40 MG VIAL IV SCH (18:08)
[2017-02-05] MEDS: RESP: ALBUTEROL 2.5 MG/IPRATROPIUM 0.5 MG NEB (PRN) NEB (20:58)
--- NOTE | 2017-02-05 21:13 | HHI.NSPN ---
History Chief Complaint: Unable to obtain due to clinical condition. Interval History Status post left decompressive craniotomy evacuation large acute subdural hematoma with approximately 16 mm shift 01/27/17. 02/03/17 ventriculostomy catheter removed 02/04/17 ICP monitor bolt removed Exam Results Vital Signs Date Time Temp Pulse Resp B/P Pulse Ox O2 Delivery O2 Flow Rate FiO2 02/05/17 18:00 114 02/05/17 16:56 100 40 02/05/17 16:00 101.8 16 140/62 Intake and Output 02/04/17 02/04/17 02/05/17 08:00 16:00 00:00 Intake Total 1080 ml 1345 ml 634 ml Output Total 995 ml 2000 ml 835 ml Balance 85 ml -655 ml -201 ml Physical Examination GENERAL: The patient is intubated and mechanically ventilated w/o any sedation. SKIN: Skin warm & dry. Multiple abrasions & ecchymosis to extremities healing w/ o complication, ecchymosis to left side of head. Right parietal scalp laceration. No rashes or other lesions noted. HEENT: Well approximated left-sided craniotomy w/intact mendel and pressure monitoring bolt & ventriculostomy insertions sites, w/o any evident drainage, erythema or streaking. PERRLA. Orally intubated. OGT. NECK: No JVD, trachea midline. CARDIOVASCULAR: S1S2 w/RRR w/o M/G/R, radial & pedal pulses 2+ bilaterally, cap refill < 2 sec, no pedal edema. Monitor is sinus rhythm w/o any ectopy noted. RESPIRATORY: CTAB w/o W/R/R, equal excursion, nonlaboured, intubated and mechanically ventilated. GASTROINTESTINAL: Abdomen soft, bowel sounds not appreciated, OGT w/enteral feeds. MUSCULOSKELETAL: Scattered abrasions & ecchymosis. No evident deformities or clubbing. NEUROLOGICAL: GCS 6T (E1 V1T M4). No eye opening to voice & noxious stimuli. PERRLA. Spontaneously moving RLE, withdrew BLE to localised noxious stimuli and RUE & BLE to centralised noxious stimuli, no response w/LUE to noxious stimuli. Unable to assess sensation. Lab, Micro, Other Results Chest X-Ray 02/05/17 0600 Signed Impressions: Service Date/Time: Sunday, February 05, 2017 05:29 - CONCLUSION: 1. There is no evidence of pneumothorax. Luis Angel Bullock MD Laboratory Tests Test 02/05/17 02/05/17 06:39 10:00 White Blood Count 24.9 TH/MM3 Red Blood Count 3.18 MIL/MM3 Hemoglobin 9.7 GM/DL Hematocrit 28.7 % Mean Corpuscular Volume 90.2 FL Mean Corpuscular Hemoglobin 30.4 PG Mean Corpuscular Hemoglobin 33.6 % Concent Red Cell Distribution Width 16.3 % Platelet Count 439 TH/MM3 Mean Platelet Volume 8.8 FL Neutrophils (%) (Auto) 78.4 % Lymphocytes (%) (Auto) 9.7 % Monocytes (%) (Auto) 8.2 % Eosinophils (%) (Auto) 2.6 % Basophils (%) (Auto) 1.1 % Neutrophils # (Auto) 19.5 TH/MM3 Lymphocytes # (Auto) 2.4 TH/MM3 Monocytes # (Auto) 2.0 TH/MM3 Eosinophils # (Auto) 0.7 TH/MM3 Basophils # (Auto) 0.3 TH/MM3 CBC Comment AUTO DIFF Differential Total Cells 100 Counted Neutrophils % (Manual) 70 % Band Neutrophils % 3 % Lymphocytes % 13 % Monocytes % 9 % Eosinophils % 4 % Neutrophils # (Manual) 18.4 TH/MM3 Metamyelocytes 1 % Nucleated Red Blood Cells 1 /100 WBC Differential Comment FINAL DIFF MANUAL Toxic Vacuolation PRESENT Platelet Estimate HIGH Platelet Morphology Comment NORMAL Polychromasia 2.8 % Acanthocytes OCC Sodium Level 138 MEQ/L Potassium Level 4.9 MEQ/L Chloride Level 104 MEQ/L Carbon Dioxide Level 26.6 MEQ/L Anion Gap 7 MEQ/L Blood Urea Nitrogen 16 MG/DL Creatinine 0.47 MG/DL Estimat Glomerular Filtration 141 ML/MIN Rate Random Glucose 101 MG/DL Calcium Level 7.9 MG/DL Total Bilirubin 0.8 MG/DL Aspartate Amino Transf 24 U/L (AST/SGOT) Alanine Aminotransferase 26 U/L (ALT/SGPT) Alkaline Phosphatase 125 U/L Total Protein 5.9 GM/DL Albumin 2.3 GM/DL Vancomycin Level Trough 10.2 MCG/ML Medical Decision Making Impression and Plan Impression: 1. Stable neurologic exam following left craniotomy evacuation large acute subdural hematoma. Plan: Continue ventilatory support ICP monitor and ventriculostomy discontinued Follow-up CT scan early next week depending on clinical course Continue ISC neurologic checks and monitoring Continue follow sodium level to keep 145-153 range Okay for Nic Enamorado MD Feb 05, 2017 21:13
[2017-02-06] VITALS (18 sets, daily range): BP systolic 107–133; BP diastolic 53–78; PULSE 99–138; RESP 14–25; TEMP 98.7–102; O2SAT 100
[2017-02-06] MEDS: VANCOMYCIN INJ 1,500 MG in SODIUM CHLORID 0.9% 500 ML INJ 500 ML IV SCH ×2 (03:02→10:30)
[2017-02-06] MEDS: CEFEPIME INJ 2,000 MG in SODIUM CHLORIDE 0.9% INJ 100 ML IV SCH ×3 (03:02→17:07)
[2017-02-06] MEDS: ACETAMINOPHEN 325 MG TAB PO PRN ×2 (05:48→12:43)
[2017-02-06 06:02] LABS: AUTOMATED NEUTROPHIL # 11.3 TH/MM3 (1.8-7.7); BASOPHIL % 0.2 % (0.0-2.0); EOSINOPHIL # 0.3 TH/MM3 (0-0.4); HEMATOCRIT 22.4 % (35.0-46.0); LYMPH % 10.2 % (9.0-44.0); LYMPHOCYTE # 1.4 TH/MM3 (1.0-4.8); MEAN CELL VOLUME 94.7 FL (80.0-100.0); MEAN CORPUSCULAR HEMOGLOBIN 31.2 PG (27.0-34.0); MONO % 7.6 % (0.0-8.0); PLATELET COUNT 294 TH/MM3 (150-450); RED BLOOD COUNT 2.37 MIL/MM3 (4.00-5.30); RED CELL DISTRIBUTION WIDTH 16.1 % (11.6-17.2); WHITE BLOOD COUNT 14.1 TH/MM3 (4.0-11.0)
[2017-02-06 06:04] LABS: HEMO FLAGS AUTO DIFF
[2017-02-06 08:22] LABS: BANDS 3 % (0-6); CORRECTED NUCLEATED RBC 3 /100 WBC (0-0); EOSINOPHILS 1 % (0-4); METAMYELOCYTES 3 % (0-1); NEUTROPHIL # MANUAL DIFF 12.5 TH/MM3 (1.8-7.7); PLATELET ESTIMATE SMEAR NORMAL (NORMAL); PLATELET MORPHOLOGY NORMAL (NORMAL); POLYS (SEG NEUTROPHILS) 83 % (16-70); SCAN/DIFF FINAL DIFF MANUAL; WBC DIFF SAMPLE 100
[2017-02-06 08:23] LABS: POLYCHROMASIA 2.1 % (0.0-1.9)
[2017-02-06] MEDS: BISACODYL 10 MG SUPP RECTAL SCH (08:37)
[2017-02-06] MEDS: CHLORHEXIDINE 0.12% (ORAL KIT) 15 ML CUP MT SCH ×2 (08:37→20:00)
[2017-02-06] MEDS: DOCUSATE SODIUM 50 MG/SENNA 8.6 MG TAB PO SCH ×2 (08:45→20:01)
[2017-02-06] MEDS: VALPROIC ACID SYRUP 250 MG/5 ML UDC PO SCH ×3 (08:45→17:07)
[2017-02-06] MEDS: levETIRAcetam INJ 500 MG in SODIUM CHLORIDE 0.9% INJ 100 ML IV SCH (08:46)
[2017-02-06] MEDS: SODIUM CHLORIDE 0.9% FLUSH 10 ML FLUSH IV FLUSH SCH ×2 (08:46→20:02)
[2017-02-06] MEDS ORDERED: PHARMACY ORDERED LAB ONE (09:45)
[2017-02-06] MEDS ORDERED: BACITRACIN OINT 0.9 GM PKT TOPICAL ONE (10:45)
[2017-02-06 11:41] LABS: HEMATOCRIT 27.3 % (35.0-46.0); REVIEW FLAG FINAL
[2017-02-06 12:28] LABS: BICARBONATE 28.5 MEQ/L (21.0-32.0); POTASSIUM 4.1 MEQ/L (3.5-5.1)
[2017-02-06] MEDS: ENOXAPARIN SODIUM 40 MG/0.4 ML SYRINGE SQ SCH (12:44)
--- NOTE | 2017-02-06 13:54 | HHI.CCPN ---
Subjective Brief History severe traumatic brain injury. [place] coma scale 3. Large left temporoparietal subdural hematoma, right basal skull fracture through the petrous bone with extrusion of some brain matter on the right, fracture of the right scapula, left superior inferior ramus pubic fracture with minimal displacement and a right sacral fracture. Patient will be taken immediately to the operating room. Patient underwent a left frontotemporal craniectomy with evacuation of subdural hematoma and placement of ventriculostomy Orthopedic consult was obtained and no further operative management will be instituted 24 Hour Review/Hospital Course Patient has been in the ICU overnight intubated and ventilated 01/29/17 Neurologic status is unchanged ICP remains low Pupils are equal about 2 mm and somewhat reactive Patient remains on propofol fentanyl Hypertonic 3% saline at 30 cc/h Keppra No clinical suspicion of seizures 01/30/17 Patient is withdrawing all 4 extremities and localizes and opened her eyes ICP remains low around 8 mmHg Removed from propofol and fentanyl or any form of sedation Sodium 158 and hypertonic saline removed Remains intubated and ventilated and starting to pickup on her own the rate 01/31 open eyes spontaneously-move extremities ICP around 10 mmHg ventriculostomy 110cc/8hrs tolerating CPAP 02/01/17 ICP remains low around 8-10 mmHg Probably ventriculostomy can be safely removed soon as per neurosurgery Patient opening eyes and trying to follow some commands moves both lower extremities and right arm but very little in the left arm Patient is definitely neurologically improving Tolerated CPAP for about 4 hours 02/02/17 Patient neurologically unchanged. Opens eyes to sternal rub and moves all 4 extremities right more than left as described yesterday Does not follow commands Repeat CT scan shows evolving parietal trauma with edema however no new changes EEG consistent with encephalopathy and no seizures Patient is on Keppra and valproic acid. In this case valproic acid has been added by neuropsychology for unrelated reasons ICP remains around 8-9 mmHg and ventriculostomy is a 10 cm Will be probably able to remove either ICP bolt, ventriculostomy or both soon as per neurosurgery 02/04/17 Neurologically slightly improved patient's opening eyes Moves extremities but left side is clearly weaker than the right Right chest drain in position however still apical pneumothorax which is enlarging and we'll place another anterior drain Patient spiked fever to 103 yesterday Triple-lumen removed Venous ultrasound did not reveal any deep venous thrombosis in the arm or the shoulder girdle Patient doing well at this time continue antibiotics 02/05/17 off sedation slowly emerging CXR stable-keep drain on suction 02/06 sodium 141 hgb 11 moving all 4 extremities CXR no PTX NS cleared for lovenox Objective Vital Signs Date Time Temp Pulse Resp B/P Pulse Ox O2 Delivery O2 Flow Rate FiO2 02/06/17 12:00 100.7 116 20 133/64 100 02/06/17 12:00 40 Intake and Output 02/05/17 02/05/17 02/05/17 07:59 15:59 23:59 Intake Total 1015 ml 1116 ml 1324 ml Output Total 1824 ml 2220 ml 975 ml Balance -809 ml -1104 ml 349 ml Result Diagram: 02/06/17 1002 02/06/17 1002 Other Results Microbiology Date/Time Procedure Status Source Growth 02/03/17 15:00 Gram Stain - Final Complete Cerebral Spinal Fluid Shunt Fluid 02/03/17 15:00 CSF Culture - Final Complete Cerebral Spinal Fluid Shunt Fluid NO GROWTH IN 72 HOURS Assessment and Plan Plan neuro status improving HD stable CT right to suction continue tube feeds start SBT-needs to have better mental status for extubation Antoinette Garner MD Feb 06, 2017 13:54
--- NOTE | 2017-02-06 14:35 | HHI.IDPN ---
Note Infectious Disease Note ID coverage. Notes reviewed. Spoke to RN. Having fever. Sedated on the vent. On CPAP. Repeat CSF C/S negative. Patient admitted as a trauma alert. Post evacuation of epidural hematoma, placement of a bolt and ventriculostomy. Antibiotics Vancomycin Cefepime Lines PIV Past Medical History None Allergies: Coded Allergies: No Known Allergies (Unverified , 01/31/17) per OBJECTIVE: Vital Signs Date Time Temp Pulse Resp B/P Pulse Ox O2 Delivery O2 Flow Rate FiO2 02/06/17 12:00 100.7 116 20 133/64 100 02/06/17 12:00 40 02/06/17 12:00 116 02/06/17 11:53 100 40 02/06/17 10:00 115 02/06/17 08:35 100 40 02/06/17 08:00 98.7 108 14 122/58 100 02/06/17 08:00 109 02/06/17 08:00 108 02/06/17 08:00 40 02/06/17 04:30 100 40 02/06/17 04:00 40 02/06/17 04:00 101.0 99 14 127/78 100 02/06/17 02:00 138 02/06/17 01:40 100 40 02/06/17 00:00 40 02/06/17 00:00 102.0 138 25 107/53 100 02/06/17 00:00 138 02/05/17 22:00 115 02/05/17 20:30 100 40 02/05/17 20:00 99.8 108 28 136/60 100 02/05/17 20:00 40 02/05/17 20:00 106 02/05/17 18:00 114 02/05/17 16:56 100 40 02/05/17 16:00 116 02/05/17 16:00 101.8 116 16 140/62 100 02/05/17 16:00 40 02/05/17 15:31 95 40 02/05/17 02/05/17 02/06/17 14:59 22:59 06:59 Intake Total 1116 ml 1324 ml 756 ml Output Total 2220 ml 975 ml 1000 ml Balance -1104 ml 349 ml -244 ml Intake IV Total 741 ml 771 ml 525 ml Tube Feeding 375 ml 553 ml 231 ml Output Urine Total 2200 ml 975 ml 1000 ml Stool Total 0 ml Chest Tube Drainage Total 20 ml Laboratory Tests Test 02/05/17 02/06/17 02/06/17 06:39 05:06 10:02 White Blood Count 24.9 TH/MM3 14.1 TH/MM3 Red Blood Count 3.18 MIL/MM3 2.37 MIL/MM3 Hemoglobin 9.7 GM/DL 7.4 GM/DL 9.2 GM/DL Hematocrit 28.7 % 22.4 % 27.3 % Mean Corpuscular Volume 90.2 FL 94.7 FL Mean Corpuscular Hemoglobin 30.4 PG 31.2 PG Mean Corpuscular Hemoglobin 33.6 % 33.0 % Concent Red Cell Distribution Width 16.3 % 16.1 % Platelet Count 439 TH/MM3 294 TH/MM3 Mean Platelet Volume 8.8 FL 9.0 FL Neutrophils (%) (Auto) 78.4 % 80.0 % Lymphocytes (%) (Auto) 9.7 % 10.2 % Monocytes (%) (Auto) 8.2 % 7.6 % Eosinophils (%) (Auto) 2.6 % 2.0 % Basophils (%) (Auto) 1.1 % 0.2 % Neutrophils # (Auto) 19.5 TH/MM3 11.3 TH/MM3 Lymphocytes # (Auto) 2.4 TH/MM3 1.4 TH/MM3 Monocytes # (Auto) 2.0 TH/MM3 1.1 TH/MM3 Eosinophils # (Auto) 0.7 TH/MM3 0.3 TH/MM3 Basophils # (Auto) 0.3 TH/MM3 0.0 TH/MM3 CBC Comment AUTO DIFF AUTO DIFF Differential Total Cells 100 100 Counted Neutrophils % (Manual) 70 % 83 % Band Neutrophils % 3 % 3 % Lymphocytes % 13 % 8 % Monocytes % 9 % 2 % Eosinophils % 4 % 1 % Neutrophils # (Manual) 18.4 TH/MM3 12.5 TH/MM3 Metamyelocytes 1 % 3 % Nucleated Red Blood Cells 1 /100 WBC 3 /100 WBC Differential Comment FINAL DIFF FINAL DIFF MANUAL MANUAL Toxic Vacuolation PRESENT Platelet Estimate HIGH NORMAL Platelet Morphology Comment NORMAL NORMAL Polychromasia 2.8 % 2.1 % Acanthocytes OCC Laboratory Tests Test 02/05/17 02/06/17 06:39 10:02 Sodium Level 138 MEQ/L 141 MEQ/L Potassium Level 4.9 MEQ/L 4.1 MEQ/L Chloride Level 104 MEQ/L 105 MEQ/L Carbon Dioxide Level 26.6 MEQ/L 28.5 MEQ/L Anion Gap 7 MEQ/L 8 MEQ/L Blood Urea Nitrogen 16 MG/DL 14 MG/DL Creatinine 0.47 MG/DL 0.48 MG/DL Estimat Glomerular Filtration 141 ML/MIN 138 ML/MIN Rate Random Glucose 101 MG/DL 121 MG/DL Calcium Level 7.9 MG/DL 8.3 MG/DL Total Bilirubin 0.8 MG/DL Aspartate Amino Transf 24 U/L (AST/SGOT) Alanine Aminotransferase 26 U/L (ALT/SGPT) Alkaline Phosphatase 125 U/L Total Protein 5.9 GM/DL Albumin 2.3 GM/DL Microbiology Date/Time Procedure Status Source Growth 02/03/17 15:00 Gram Stain - Final Complete Cerebral Spinal Fluid Shunt Fluid 02/03/17 15:00 CSF Culture - Final Complete Cerebral Spinal Fluid Shunt Fluid NO GROWTH IN 72 HOURS 02/06/17 04:59 Aerobic Blood Culture Received Blood Peripheral Pending 02/06/17 04:59 Anaerobic Blood Culture Received Blood Peripheral Pending 02/06/17 05:06 Aerobic Blood Culture Received Blood Peripheral Pending 02/06/17 05:06 Anaerobic Blood Culture Received Blood Peripheral Pending Microbiology Date/Time Procedure Status Source Growth 02/02/17 15:25 Gram Stain - Final Resulted Cerebral Spinal Fluid Shunt Fluid 02/02/17 15:25 CSF Culture - Preliminary Resulted Acinetobacter Baumannii/Haemol Bacillus Species Not Anthracis 02/02/17 15:45 Gram Stain - Final Complete Sputum Endotracheal 02/02/17 15:45 Sputum Culture - Final Complete Sputum Endotracheal MODERATE GROWTH NORMAL RESPIRATORY LIZ 02/02/17 18:30 Aerobic Blood Culture - Preliminary Resulted Blood Peripheral NO GROWTH IN 2 DAYS 02/02/17 18:30 Anaerobic Blood Culture - Preliminary Resulted Blood Peripheral NO GROWTH IN 2 DAYS 02/02/17 18:45 Aerobic Blood Culture - Preliminary Resulted Blood Peripheral NO GROWTH IN 2 DAYS 02/02/17 18:45 Anaerobic Blood Culture - Preliminary Resulted Blood Peripheral NO GROWTH IN 2 DAYS 02/03/17 15:00 Gram Stain - Final Resulted Cerebral Spinal Fluid Shunt Fluid 02/03/17 15:00 CSF Culture - Preliminary Resulted Cerebral Spinal Fluid Shunt Fluid NO GROWTH IN 48 HOURS. Imaging Chest X-Ray 02/05/17 0600 Signed Impressions: Service Date/Time: Sunday, February 05, 2017 05:29 - CONCLUSION: 1. There is no evidence of pneumothorax. Luis Angel Bullock MD Physical Exam GENERAL: sedated on the vent. NAD SKIN: Warm and dry. No generalized rash HEENT: Incision L side of head is dry, no redness or drainage. No scleral icterus. CARDIOVASCULAR: Regular rate and rhythm. No murmurs, rubs or gallops. RESPIRATORY: Rhonchi at the bases. Bilateral chest tubes. ABDOMEN: Soft, No reaction to palpation. Bowel sounds present. EXTREMITIES: No clubbing, cyanosis or edema. NEUROLOGICAL: Sedated PSYCHIATRIC: Unable to assess LINE: No evidence of infection : Sanchez has turbid urine. Assessment & Plan IMPRESSION New fevers, possible sepsis, source? - ?VAP - ?CSF - has Acinetobacter and Bacillus; repeat negative; ?significance, ? colonization TBI, with epidural hematoma S/P OR, has bolt and EVD Respiratory failure Leukocytosis worse, ? reactive WBC lower. RECOMMENDATION Obtain UA/C&S.. Follow CBC Follow BC Continue Vancomycin and Cefepime Monitor temp Monitor progress D/W RN and . Tariq Dominguez MD Feb 06, 2017 14:35
[2017-02-06] MEDS: BACITRACIN TOP OINT 15 GM TUBE TOPICAL SCH ×2 (15:00→20:01)
[2017-02-06 15:51] LABS: BACTERIA, URINE OCC /hpf; BLOOD, URINE NEG (NEG); GLUCOSE,URINE NEG (NEG); HYALINE CAST, URINE 2 /lpf (RARE); KETONE, URINE 10 mg/dL (NEG); MUCUS URINE FEW /lpf (OCC); NITRITE,URINE NEG (NEG); URINE COLOR YELLOW (YELLW/STRAW)
[2017-02-06 15:52] LABS: COMMENT (UR) CATH-CULTURE IND; CULTURE IF INDICATED CATH CULTURE IND
--- NOTE | 2017-02-06 16:37 | HHI.CCPN ---
Subjective Remarks/Hospital Course 46-year-old female who according to her family fell through a garage ceiling landing on the floor one-story down. Positive loss of consciousness. Patient was reportedly unresponsive immediately after the event. No seizure activity reported. She was GCS 3-4 at the scene and brought to [facility] emergency room as a trauma alert per EMS. She was intubated in the emergency room. She was noted to have a fixed dilated left pupil and pinpoint right pupil in the emergency room on initial evaluation. The CT Images revealed a large left hemispheric acute subdural hematoma with approximate 16 mm midline shift, significant effacement of the left ventricle and cisterns. Patient was taken emergently to the operating room from the CT scanning suite. SUBJ 01/28/17: s/p Left decompressive frontotemporoparietal craniotomy for evacuation of acute subdural hematoma. Left frontal ventriculostomy catheter placement, and Left frontal twist drill for intracranial pressure monitor placement. ICP well controlled. Small to moderate line associated pneumothorax associated with central line placement. Started on Levophed to maintain MAP, CPP 01/29: CT scan yesterday shows interval excellent evacuation of the subdural hemorrhage with improved midline shift from 17 mm to 4 mm. Neuro exam improving. Patient shakes her head to opened eyes couple times during night. Localizes to pain. ICP well controlled. Chest x-ray shows no residual pneumothorax 01/30: Remains intubated off pressors. Examination off sedation shows localizing 4, pupils are equal and reactive. Not following commands. Chest x- ray clear without pneumothorax 01/31: Neuro exam continues to improve. Opening eyes spontaneously and to pain. Localizes to pain 4 not following commands yet but shakes her head. Small apical pneumothorax most likely due to blockage and the pigtail-this was cleared we'll repeat chest x-ray 02/01: Opens eyes to sternal rub. Clearly weaker on the left side. Attempts to follow command on RUE on multiple requests, withdraws on left. Pneumothorax has resolved. 02/02 CT scan with worsening L parietal edema. Off continuous sedation; gets intermittent low dose fentanyl boluses. Opens eyes to sternal rub. Spontaneously moves RUE/RLE/LLE extremities but left is weaker. Localizes on right, does not follow commands during my exam. CT was placed to water seal per trauma. Xray hand ordered due to L hand ecchymosis. Tolerating tube feeds and CPAP. ICP 5-10, Ventric +10 cm. 02/03 Chest tube dislodged yesterday. CXR this morning with increased size of R pneumothorax. Replacing chest tube. Opens eyes to stimulation. Spontaneously moves BLE and RUE with localizing RUE. Temp max 103.1 with leukocytosis 15.9. Sandhu cultures have been sent and are pending. Replacing central line and initiating antimicrobial therapy with cefepime and vancomycin. Plan to continue CPAP trials after chest tube placement. 02/04 Recurrent R PTX. Dr. Philip states he will place additional pigtail. Ventric removed yesterday due to gram variable rods. ICP monitor removed today. LUE infiltrated with 2% saline overnight around 11 pm. Subjective: 02/06: neuro exam very poor and not improving. no improvement in respiratory status. acinetobacter and bacillus in EVD. febrile overnight. repeat cultures pending. Objective Vital Signs Date Time Temp Pulse Resp B/P Pulse Ox O2 Delivery O2 Flow Rate FiO2 02/06/17 15:12 100 40 02/06/17 14:00 123 02/06/17 12:00 100.7 20 133/64 Intake and Output 02/05/17 02/05/17 02/06/17 08:00 16:00 00:00 Intake Total 1015 ml 1116 ml 1324 ml Output Total 1824 ml 2220 ml 975 ml Balance -809 ml -1104 ml 349 ml Result Diagram: 02/06/17 1002 02/06/17 1002 Imaging Last 24 hours Impressions Thoracic Spine CT 01/27/17 170 Signed Impressions: Service Date/Time: Friday, January 27, 2017 17:20 - CONCLUSION: 1. No fracture or subluxation. 2. Minimal subcutaneous emphysema seen within the upper neck likely related to patient's temporal bone fracture. Eb Guerin MD Pelvis X-Ray 01/27/17 170 Signed Impressions: Service Date/Time: Friday, January 27, 2017 16:54 - CONCLUSION: 1. Left pubic rami fractures. Otoniel Crain MD Lumbar Spine CT 01/27/17 1700 Signed Impressions: Service Date/Time: Friday, January 27, 2017 17:20 - CONCLUSION: 1. No fracture or subluxation of the lumbar spine. 2. There are fractures of the right sacrum discussed in detail on CT the abdomen/pelvis. Eb Guerin MD Head CT 01/27/171699 Signed Impressions: Service Date/Time: Friday, January 27, 2017 17:20 - CONCLUSION: 1. Large acute subdural hematoma along the left frontal parietal and temporal lobes measuring 20 mm in greatest width with possible additional epidural component more superiorly. There is approximately 17 mm of subfalcine herniation to the right as well as diffuse effacement of the left cerebral sulci. 2. Acute right temporal bone fracture. 3. Fluid levels within the right maxillary sinus and left sphenoid sinus. Juan Carlos Jc MD Chest X-Ray 01/27/171699 Signed Impressions: Service Date/Time: Friday, January 27, 2017 16:54 - CONCLUSION: 1. Acute fracture involving the right scapula. 2. Endotracheal tube in good position 3 cm above the dima. Juan Carlos Jc MD Chest CT 01/27/171699 Signed Impressions: Service Date/Time: Friday, January 27, 2017 17:25 - CONCLUSION: 1. Comminuted fracture involving the right scapula. 2. Minimal posterior atelectatic changes bilaterally. Juan Carlos Jc MD Cervical Spine CT 01/27/171699 Signed Impressions: Service Date/Time: Friday, January 27, 2017 17:24 - CONCLUSION: 1. No acute fracture or prevertebral soft tissue swelling. 2. Straightening of the normal cervical lordosis. 3. Cervical spondylosis from C3 through C6. 4. Mild bilateral foraminal narrowing at C3-4, C4-5 and C5-6. Juan Carlos Jc MD Abdomen/Pelvis CT 01/27/171699 Signed Impressions: Service Date/Time: Friday, January 27, 2017 17:25 - CONCLUSION: 1. Acute fractures along the right sacrum as well as the left superior and inferior pubic rami. 2. No intra-abdominal trauma identified. Juan Carlos Jc MD Radius/Ulna X-Ray 01/27/17 0000 Signed Impressions: Service Date/Time: Friday, January 27, 2017 16:54 - CONCLUSION: Soft tissue swelling involving the right mid forearm without underlying radial or ulnar fracture. Juan Carlos Jc MD Chest X-Ray 01/27/17 0000 Signed Impressions: Service Date/Time: Friday, January 27, 2017 21:57 - CONCLUSION: No acute disease. Adequate placement of right jugular central line. Questionable tiny right apical pneumothorax. Followup studies recommended. Eb Guerin MD Objective Remarks GENERAL: middle-aged female, off sedation, comatose. SKIN: Warm and dry. HEAD: Status post craniotomy. EYES: No scleral icterus. No injection or drainage. Pupils 3 mm briskly reactive. NECK: trachea midline. No JVD CARDIOVASCULAR: Tachycardic, regular, sinus tach on the monitor RESPIRATORY: Breath sounds diminished on the right. No wheezes Rales or rhonchi. R pigtail chest tube in place, connections and suction tested, no air leak. GASTROINTESTINAL: Abdomen soft, non-tender, nondistended. MUSCULOSKELETAL: No cyanosis,. There is ecchymosis over the left hand. Palpable radial pulses are present bilaterally. There is ecchymosis overlying the right distal forearm. NEURO: Pupils 3 mm briskly reactive. Grimaces to pain. does not open eyes. weakly withdraws in RUE. minimal movement in LUE or BLEs. Does not follow commands for me. A/P Assessment and Plan Assessment: 46yF s/p fall with acute SDH and now severe encephalopathy. persistent comatose state is worrisome. will order EEG and MRI. check VPA levels. will need tracheostomy as patient is off pathway and not improving and cannot protect airway. NEURO: Severe acute left hemisphere subdural hematoma with midline shift and mass effect Right temporal bone fracture-nondisplaced - Status post emergent evacuation, EVD and ICP monitor placement by Dr. Bahena - CT head 01/28-excellent evacuation of the subdural hemorrhage with significant improvement in midline shift - F/U CT head 02/02 - L parietal edema appears slightly increased but there is no midline shift. R temporal lobe edema persists. - Monitor ICP-well controlled. EVD removed 02/04 when CSF gram stain resulted gram variable segun. Repeat CT brain no hydrocephalus. - Discussed with NSG, will d/c 2% NaCl, monitor sodium daily, avoid hyponatremia. - Keppra for sz prophylaxis. On depaken 250 tid per trauma surgery. - Neuro exam worsening over last few days. - Lortab prn pain. Fentanyl prn breakthrough. RESP: Acute Respiratory failure Iatrogenic R pneumothorax - Daily SBT however mental status precludes extubation. Mechanical ventilation day #10. patient not improving neurologically over last few days. will require tracheostomy. - Continue mechanical ventilation, - Placed R right pigtail chest tube 01/28, with resolution of pneumothorax. This chest tube dislodged on 02/02. Replaced 02/03 due to increased size of PTX. Now persitent PTX, additional pigtail catheter per Dr. Mark Justin every 2 hours when necessary CVS: Hypertension - When necessary labetalol and hydralazine to keep systolic blood pressure less than 150 GI: -Vital 1.5 @ 50 mL per hour per nutrition recommendations., IV Protonix - Having multiple bowel movements. Holding lactulose FEN/RENAL : - Sanchez remains in place because critically ill on mechanical ventilation and in need of accurate I's and O's. Monitor UOP. Monitor BUN/creatinine - Electrolyte replacement per protocol ID: Fever Acinetobacter and Bacillus Ventriculitis - Patient has right temporal bone fracture with fluid in mastoid air cells - Temp 103 on 02/03 WBC 15.9. CSF with acinetobacter and bacillus ventriculitis. CSF cell count 102 WBC/267 RBC , glucose normal, protein low . Abx broadened to cefepime/vanc on 02/03 #4 to address Blood cx, sputum cx, u/a negative 02/02. CVL removed 02/03 - resend sputum culture - keep vanc/cefepime. if cultures today are negative, d/c vanc. Superfical thrombophlebitis R distal cephalic. Endo: Satisfactory glycemic control MSK: Scapular, pelvic, and sacral fractures - No indication for surgery - Conservative and supportive care Xray R forearm and L hand were negative for fractures. DVT GI prophylaxis - Teds SCDs - Started lovenox 40 mg subcut 02/02, ok per discussion with Dr. Bahena.. - Protonix Filemon Moreira MD Feb 06, 2017 16:37
[2017-02-06] MEDS: AMANTADINE HCL SOLN 100 MG/10 ML UDC PO SCH ×2 (17:07→20:01)
[2017-02-06] MEDS: VANCOMYCIN INJ 1,250 MG in SODIUM CHLOR 0.9% 250 ML INJ 250 ML IV SCH (17:30)
[2017-02-06] MEDS: FAMOTIDINE 20 MG TAB NG SCH (20:01)
[2017-02-06] MEDS: levETIRAcetam 500 MG/5 ML UDC NG SCH (20:02)
--- NOTE | 2017-02-06 22:20 | RADRPT ---
EXAM DATE/TIME: 02/06/2017 21:31 [facility] COMPARISON: CT BRAIN W/O CONTRAST, February 04, 2017, 4:39. INDICATIONS : Decreased level of consciousness s/p craniotomy. MEDICAL HISTORY : None. SURGICAL HISTORY : Hysterectomy. Craniotomy. ENCOUNTER: Subsequent ACUITY: 1 month PAIN SCORE: 0/10 LOCATION: cranial TECHNIQUE: Multiplanar, multisequence MRI of the brain was performed without contrast. FINDINGS: Comparison is made with prior CT. There is previous traumatic brain injury and partial craniectomy on the left with evacuation of a previous left subdural hematoma. There is some residual subdural hemor rhage present especially posteriorly in the occipital region and in the posterior fossa. This measure s up to approximately 6 mm in thickness. Currently there is very minimal shift from right to left wit h the decompression craniectomy on the left. There is a left-sided shunt tube tract in the left front al lobe. There are presumed contusions in the temporal lobes bilaterally measuring up to 3.4 cm on the right near the previous right temporal bone fracture and up to 5.4 x 2.7 cm in the left temporal lobe. Ther e is also some scattered residual subarachnoid hemorrhage. There is fluid in the temporal bones bilat erally and in the sphenoid sinus. CONCLUSION: 1. Postoperative partial left craniectomy for decompression and evacuation of left subdural hematoma. There is some residual subdural hematoma present predominantly posteriorly in the occipital region a nd posterior fossa. 2. Bilateral temporal lobe contusions with measurements given above. Scattered subarachnoid hemorrhag e. 3. Fluid in the temporal bones bilaterally and in the sphenoid sinus. There minimal right to left mid line shift. Multiple hemosiderin deposits noted on the susceptibility weighted images especially over both convexities and on the left side laterally. Juan Bajwa MD on February 06, 2017 at 22:09 Board Certified Radiologist. This report was verified electronically.
[2017-02-07] VITALS (18 sets, daily range): BP systolic 120–133; BP diastolic 60–84; PULSE 102–120; RESP 14–26; TEMP 99.3–102.3; O2SAT 96–100
[2017-02-07] MEDS: CEFEPIME INJ 2,000 MG in SODIUM CHLORIDE 0.9% INJ 100 ML IV SCH ×3 (00:27→17:06)
[2017-02-07] MEDS: ENOXAPARIN SODIUM 30 MG/0.3 ML SYRINGE SQ SCH ×2 (00:28→13:32)
--- NOTE | 2017-02-07 06:06 | RADRPT ---
EXAM DATE/TIME: 02/07/2017 05:36 [facility] COMPARISON: CHEST SINGLE AP, February 05, 2017, 5:29. INDICATIONS : Follow up trauma. Respiratory status. MEDICAL HISTORY : None. SURGICAL HISTORY : Craniotomy. ENCOUNTER: Subsequent ACUITY: 4 - 6 days PAIN SCORE: Non-responsive. LOCATION: Bilateral chest FINDINGS: The cardiac silhouette is normal in transverse diameter. The lungs are free of acute parenchymal opac ity. No effusions are identified. A right chest tube is in place. There is no evidence of pneumothora x. Support lines and tubes are in satisfactory position. CONCLUSION: 1. There is no evidence of pneumothorax. Luis Angel Bullock MD on February 07, 2017 at 6:04 Board Certified Radiologist. This report was verified electronically.
[2017-02-07] MEDS: VANCOMYCIN INJ 1,250 MG in SODIUM CHLOR 0.9% 250 ML INJ 250 ML IV SCH ×3 (06:26→22:23)
[2017-02-07] MEDS: CHLORHEXIDINE 0.12% (ORAL KIT) 15 ML CUP MT SCH ×2 (08:00→20:00)
--- NOTE | 2017-02-07 08:13 | HHI.CCPN ---
Subjective Remarks/Hospital Course 46-year-old female who according to her family fell through a garage ceiling landing on the floor one-story down. Positive loss of consciousness. Patient was reportedly unresponsive immediately after the event. No seizure activity reported. She was GCS 3-4 at the scene and brought to [facility] emergency room as a trauma alert per EMS. She was intubated in the emergency room. She was noted to have a fixed dilated left pupil and pinpoint right pupil in the emergency room on initial evaluation. The CT Images revealed a large left hemispheric acute subdural hematoma with approximate 16 mm midline shift, significant effacement of the left ventricle and cisterns. Patient was taken emergently to the operating room from the CT scanning suite. SUBJ 01/28/17: s/p Left decompressive frontotemporoparietal craniotomy for evacuation of acute subdural hematoma. Left frontal ventriculostomy catheter placement, and Left frontal twist drill for intracranial pressure monitor placement. ICP well controlled. Small to moderate line associated pneumothorax associated with central line placement. Started on Levophed to maintain MAP, CPP 01/29: CT scan yesterday shows interval excellent evacuation of the subdural hemorrhage with improved midline shift from 17 mm to 4 mm. Neuro exam improving. Patient shakes her head to opened eyes couple times during night. Localizes to pain. ICP well controlled. Chest x-ray shows no residual pneumothorax 01/30: Remains intubated off pressors. Examination off sedation shows localizing 4, pupils are equal and reactive. Not following commands. Chest x- ray clear without pneumothorax 01/31: Neuro exam continues to improve. Opening eyes spontaneously and to pain. Localizes to pain 4 not following commands yet but shakes her head. Small apical pneumothorax most likely due to blockage and the pigtail-this was cleared we'll repeat chest x-ray 02/01: Opens eyes to sternal rub. Clearly weaker on the left side. Attempts to follow command on RUE on multiple requests, withdraws on left. Pneumothorax has resolved. 02/02 CT scan with worsening L parietal edema. Off continuous sedation; gets intermittent low dose fentanyl boluses. Opens eyes to sternal rub. Spontaneously moves RUE/RLE/LLE extremities but left is weaker. Localizes on right, does not follow commands during my exam. CT was placed to water seal per trauma. Xray hand ordered due to L hand ecchymosis. Tolerating tube feeds and CPAP. ICP 5-10, Ventric +10 cm. 02/03 Chest tube dislodged yesterday. CXR this morning with increased size of R pneumothorax. Replacing chest tube. Opens eyes to stimulation. Spontaneously moves BLE and RUE with localizing RUE. Temp max 103.1 with leukocytosis 15.9. Sandhu cultures have been sent and are pending. Replacing central line and initiating antimicrobial therapy with cefepime and vancomycin. Plan to continue CPAP trials after chest tube placement. 02/04 Recurrent R PTX. Dr. Philip states he will place additional pigtail. Ventric removed yesterday due to gram variable rods. ICP monitor removed today. LUE infiltrated with 2% saline overnight around 11 pm. 02/06: neuro exam very poor and not improving. no improvement in respiratory status. acinetobacter and bacillus in EVD. febrile overnight. repeat cultures pending. Subjective: 02/07: still poor neuro exam. MRI with evidence of persistence of minimal SDH, and contusions as well as hemosiderin deficits suggestive of axonal shear injury. Objective Vital Signs Date Time Temp Pulse Resp B/P Pulse Ox O2 Delivery O2 Flow Rate FiO2 02/07/17 07:36 100 40 02/07/17 06:00 111 02/07/17 04:00 99.6 14 133/65 Intake and Output 02/06/17 02/06/17 02/07/17 08:00 16:00 00:00 Intake Total 756 ml 829 ml 849 ml Output Total 1000 ml 1555 ml 855 ml Balance -244 ml -726 ml -6 ml Result Diagram: 02/06/17 1002 02/06/17 1002 Imaging Last 24 hours Impressions Thoracic Spine CT 01/27/171699 Signed Impressions: Service Date/Time: Friday, January 27, 2017 17:20 - CONCLUSION: 1. No fracture or subluxation. 2. Minimal subcutaneous emphysema seen within the upper neck likely related to patient's temporal bone fracture. Eb Guerin MD Pelvis X-Ray 01/27/171699 Signed Impressions: Service Date/Time: Friday, January 27, 2017 16:54 - CONCLUSION: 1. Left pubic rami fractures. Otoniel Crain MD Lumbar Spine CT 01/27/171699 Signed Impressions: Service Date/Time: Friday, January 27, 2017 17:20 - CONCLUSION: 1. No fracture or subluxation of the lumbar spine. 2. There are fractures of the right sacrum discussed in detail on CT the abdomen/pelvis. Eb Guerin MD Head CT 01/27/171699 Signed Impressions: Service Date/Time: Friday, January 27, 2017 17:20 - CONCLUSION: 1. Large acute subdural hematoma along the left frontal parietal and temporal lobes measuring 20 mm in greatest width with possible additional epidural component more superiorly. There is approximately 17 mm of subfalcine herniation to the right as well as diffuse effacement of the left cerebral sulci. 2. Acute right temporal bone fracture. 3. Fluid levels within the right maxillary sinus and left sphenoid sinus. Juan Carlos Jc MD Chest X-Ray 01/27/171699 Signed Impressions: Service Date/Time: Friday, January 27, 2017 16:54 - CONCLUSION: 1. Acute fracture involving the right scapula. 2. Endotracheal tube in good position 3 cm above the dima. Juan Carlos Jc MD Chest CT 01/27/171699 Signed Impressions: Service Date/Time: Friday, January 27, 2017 17:25 - CONCLUSION: 1. Comminuted fracture involving the right scapula. 2. Minimal posterior atelectatic changes bilaterally. Juan Carlos Jc MD Cervical Spine CT 01/27/171699 Signed Impressions: Service Date/Time: Friday, January 27, 2017 17:24 - CONCLUSION: 1. No acute fracture or prevertebral soft tissue swelling. 2. Straightening of the normal cervical lordosis. 3. Cervical spondylosis from C3 through C6. 4. Mild bilateral foraminal narrowing at C3-4, C4-5 and C5-6. Juan Carlos Jc MD Abdomen/Pelvis CT 01/27/171699 Signed Impressions: Service Date/Time: Friday, January 27, 2017 17:25 - CONCLUSION: 1. Acute fractures along the right sacrum as well as the left superior and inferior pubic rami. 2. No intra-abdominal trauma identified. Juan Carlos Jc MD Radius/Ulna X-Ray 01/27/17 0000 Signed Impressions: Service Date/Time: Friday, January 27, 2017 16:54 - CONCLUSION: Soft tissue swelling involving the right mid forearm without underlying radial or ulnar fracture. Juan Carlos Jc MD Chest X-Ray 01/27/17 0000 Signed Impressions: Service Date/Time: Friday, January 27, 2017 21:57 - CONCLUSION: No acute disease. Adequate placement of right jugular central line. Questionable tiny right apical pneumothorax. Followup studies recommended. Eb Guerin MD Objective Remarks GENERAL: middle-aged female, off sedation, comatose. SKIN: Warm and dry. HEAD: Status post craniotomy. EYES: No scleral icterus. No injection or drainage. Pupils 3 mm briskly reactive. NECK: trachea midline. No JVD CARDIOVASCULAR: Tachycardic, regular, sinus tach on the monitor RESPIRATORY: Breath sounds diminished on the right. No wheezes Rales or rhonchi. R pigtail chest tube in place, connections and suction tested, no air leak. GASTROINTESTINAL: Abdomen soft, non-tender, nondistended. MUSCULOSKELETAL: No cyanosis,. There is ecchymosis over the left hand. Palpable radial pulses are present bilaterally. There is ecchymosis overlying the right distal forearm. NEURO: Pupils 3 mm briskly reactive. Grimaces to pain. does not open eyes. weakly withdraws in RUE. minimal movement in LUE or BLEs. Does not follow commands for me. A/P Assessment and Plan Assessment: 46yF s/p fall with acute SDH and now severe encephalopathy. persistent comatose state is worrisome. MRI suggestive of axonal injury. awaiting VPA levels. will need tracheostomy as patient is off pathway and not improving and cannot protect airway. NEURO: Severe acute left hemisphere subdural hematoma with midline shift and mass effect Right temporal bone fracture-nondisplaced - Status post emergent evacuation, EVD and ICP monitor placement by Dr. Bahena - CT head 01/28-excellent evacuation of the subdural hemorrhage with significant improvement in midline shift - F/U CT head 02/02 - L parietal edema appears slightly increased but there is no midline shift. R temporal lobe edema persists. - Monitor ICP-well controlled. EVD removed 02/04 when CSF gram stain resulted gram variable segun. Repeat CT brain no hydrocephalus. - Discussed with NSG, will d/c 2% NaCl, monitor sodium daily, avoid hyponatremia. - Marzena for sz prophylaxis. On depaken 250 tid per trauma surgery. - Neuro exam slightly better and stable today. - will f/u depakote levels. - started amantadine 02/06. RESP: Acute Respiratory failure Iatrogenic R pneumothorax - Daily SBT however mental status precludes extubation. Mechanical ventilation day #10. patient not improving neurologically over last few days. will require tracheostomy. - Continue mechanical ventilation, - Placed R right pigtail chest tube 01/28, with resolution of pneumothorax. This chest tube dislodged on 02/02. Replaced 02/03 due to increased size of PTX. Now persitent PTX, additional pigtail catheter per Dr. Mark Justin every 2 hours when necessary CVS: Hypertension - When necessary labetalol and hydralazine to keep systolic blood pressure less than 150 GI: -Vital 1.5 @ 50 mL per hour per nutrition recommendations., IV Protonix - Having multiple bowel movements. Holding lactulose FEN/RENAL : - will d/c zhong and straight cath i/o q6h. Monitor BUN/creatinine - Electrolyte replacement per protocol ID: Fever Acinetobacter and Bacillus Ventriculitis - Patient has right temporal bone fracture with fluid in mastoid air cells - Temp 103 on 02/03 WBC 15.9. CSF with acinetobacter and bacillus ventriculitis. CSF cell count 102 WBC/267 RBC , glucose normal, protein low . Abx broadened to cefepime/vanc on 02/03 #4 Blood cx, sputum cx, u/a negative 02/02. CVL removed 02/03 - resend sputum culture - keep vanc/cefepime. if cultures 02/06 remain negative x 48h, will d/c vancomycin Superfical thrombophlebitis R distal cephalic. Endo: Satisfactory glycemic control MSK: Scapular, pelvic, and sacral fractures - No indication for surgery - Conservative and supportive care Xray R forearm and L hand were negative for fractures. DVT GI prophylaxis - Teds SCDs - Started lovenox 40 mg subcut 02/02, ok per discussion with Dr. Bahena.. - Protonix Filemon Moreira MD Feb 07, 2017 08:13
[2017-02-07] MEDS: BISACODYL 10 MG SUPP RECTAL SCH (09:00)
[2017-02-07] MEDS: SODIUM CHLORIDE 0.9% FLUSH 10 ML FLUSH IV FLUSH SCH ×2 (09:00→20:38)
[2017-02-07] MEDS: BACITRACIN TOP OINT 15 GM TUBE TOPICAL SCH ×2 (09:00→20:39)
[2017-02-07] MEDS ORDERED: PHARMACY ORDERED LAB ONE (09:45)
[2017-02-07] MEDS: levETIRAcetam 500 MG/5 ML UDC NG SCH ×2 (09:57→20:38)
[2017-02-07] MEDS: AMANTADINE HCL SOLN 100 MG/10 ML UDC PO SCH ×2 (09:57→20:38)
[2017-02-07] MEDS: VALPROIC ACID SYRUP 250 MG/5 ML UDC PO SCH ×3 (09:58→17:06)
[2017-02-07] MEDS: DOCUSATE SODIUM 50 MG/SENNA 8.6 MG TAB PO SCH ×2 (09:58→20:38)
[2017-02-07] MEDS: FAMOTIDINE 20 MG TAB NG SCH ×2 (09:58→20:38)
--- NOTE | 2017-02-07 10:17 | HHI.NSPN ---
(Veronica Tubbs) Note Status Status: Progress Note (Veronica Tubbs) Interval History Interval History THIS NOTE IS FOR 02/06/17 WHEN PATIENT WAS SEEN AND EXAMINED. NOTE WAS NOT SAVED PROPERLY. Status post left decompressive craniotomy evacuation large acute subdural hematoma with approximately 16 mm shift 01/27/17. 02/03/17 ventriculostomy catheter removed 02/04/17 ICP monitor bolt removed 02/06: intubated, sedation off. not opening eyes or following command. withdraws x 4. (Veronica Tubbs) Labs, Micro, & Vital Signs Results Date Time Temp Pulse Resp B/P Pulse Ox O2 Delivery O2 Flow Rate FiO2 02/07/17 08:00 100.5 102 20 120/84 100 02/07/17 08:00 40 02/07/17 08:00 102 02/07/17 07:36 100 40 02/07/17 06:00 111 02/07/17 04:00 108 02/07/17 04:00 40 02/07/17 04:00 99.6 108 14 133/65 99 02/07/17 03:57 100 40 02/07/17 02:00 115 02/07/17 01:49 100 40 02/07/17 00:00 40 02/07/17 00:00 100.3 114 14 129/60 99 02/07/17 00:00 114 02/06/17 22:00 120 02/06/17 21:00 100 100 02/06/17 20:31 100 40 02/06/17 20:00 40 02/06/17 20:00 100.9 106 14 125/58 100 02/06/17 20:00 106 02/06/17 18:00 109 02/06/17 16:00 100 02/06/17 16:00 99.5 100 14 115/57 100 02/06/17 16:00 40 02/06/17 15:12 100 40 02/06/17 14:00 123 02/06/17 12:00 100.7 116 20 133/64 100 02/06/17 12:00 40 02/06/17 12:00 116 02/06/17 11:53 100 40 02/07/17 06:59 Intake Total 2243 ml Output Total 3270 ml Balance -1027 ml Constitutional Vital Signs Date Time Temp Pulse Resp B/P Pulse Ox O2 Delivery O2 Flow Rate FiO2 02/07/17 08:00 100.5 102 20 120/84 100 02/07/17 08:00 40 02/07/17 08:00 102 02/07/17 07:36 100 40 02/07/17 06:00 111 02/07/17 04:00 108 02/07/17 04:00 40 02/07/17 04:00 99.6 108 14 133/65 99 02/07/17 03:57 100 40 02/07/17 02:00 115 02/07/17 01:49 100 40 02/07/17 00:00 40 02/07/17 00:00 100.3 114 14 129/60 99 02/07/17 00:00 114 02/06/17 22:00 120 02/06/17 21:00 100 100 02/06/17 20:31 100 40 02/06/17 20:00 40 02/06/17 20:00 100.9 106 14 125/58 100 02/06/17 20:00 106 02/06/17 18:00 109 02/06/17 16:00 100 02/06/17 16:00 99.5 100 14 115/57 100 02/06/17 16:00 40 02/06/17 15:12 100 40 02/06/17 14:00 123 02/06/17 12:00 100.7 116 20 133/64 100 02/06/17 12:00 40 02/06/17 12:00 116 02/06/17 11:53 100 40 02/07/17 06:59 Intake Total 2243 ml Output Total 3270 ml Balance -1027 ml (Veronica Tubbs) Review of Systems/Exam Exam THIS NOTE IS FOR 02/06/17 WHEN PATIENT WAS SEEN AND EXAMINED. NOTE WAS NOT SAVED PROPERLY. Intubated, off sedation. Not following commands Left flap full but soft. Surgical wound is healing well. Sensorimotor: not following commands for testing, minimally withdraws x 4 to local pain stimuli Plantars silent b/l CN: pupils 2-3 mm equal (Veronica Tubbs) Medical Decision Making MDM Remarks THIS NOTE IS FOR 02/06/17 WHEN PATIENT WAS SEEN AND EXAMINED. NOTE WAS NOT SAVED PROPERLY. 46 y/o female s/p left decompressive craniotomy with evacuation large acute subdural hematoma with approximately 16 mm shift on 01/27/17 (Veronica Tubbs) Plan Plan Remarks THIS NOTE IS FOR 02/06/17 WHEN PATIENT WAS SEEN AND EXAMINED. NOTE WAS NOT SAVED PROPERLY. cont current care cont monitor and follow up neuro examination serial neuro checks (Veronica Tubbs) Attending Statement The exam, history, and the medical decision-making described in the above note were completed with the assistance of the mid-level provider. I reviewed and agree with the findings presented. I attest that I had a [id number] encounter with the patient on the same day, and personally performed and documented my assessment and findings in the medical record. (Bipin Salgado MD) Veronica Tubbs Feb 07, 2017 10:17 Bipin Salgado MD Feb 09, 2017 19:13
--- NOTE | 2017-02-07 10:52 | HHI.NSPN ---
(Veronica Tubbs) Note Status Status: Progress Note (Veronica Tubbs) Interval History Interval History Status post left decompressive craniotomy evacuation large acute subdural hematoma with approximately 16 mm shift 01/27/17. 02/03/17 ventriculostomy catheter removed 02/04/17 ICP monitor bolt removed 02/06: intubated, sedation off. not opening eyes or following command. withdraws x 4. 8: MRI Brain completed yesterday, otherwise no changes to neuro checks overnight (Veronica Tubbs) Labs, Micro, & Vital Signs Results Date Time Temp Pulse Resp B/P Pulse Ox O2 Delivery O2 Flow Rate FiO2 02/07/17 10:00 104 02/07/17 08:00 100.5 102 20 120/84 100 02/07/17 08:00 40 02/07/17 08:00 102 02/07/17 07:36 100 40 02/07/17 06:00 111 02/07/17 04:00 108 02/07/17 04:00 40 02/07/17 04:00 99.6 108 14 133/65 99 02/07/17 03:57 100 40 02/07/17 02:00 115 02/07/17 01:49 100 40 02/07/17 00:00 40 02/07/17 00:00 100.3 114 14 129/60 99 02/07/17 00:00 114 02/06/17 22:00 120 02/06/17 21:00 100 100 02/06/17 20:31 100 40 02/06/17 20:00 40 02/06/17 20:00 100.9 106 14 125/58 100 02/06/17 20:00 106 02/06/17 18:00 109 02/06/17 16:00 100 02/06/17 16:00 99.5 100 14 115/57 100 02/06/17 16:00 40 02/06/17 15:12 100 40 02/06/17 14:00 123 02/06/17 12:00 100.7 116 20 133/64 100 02/06/17 12:00 40 02/06/17 12:00 116 02/06/17 11:53 100 40 02/07/17 07:00 Intake Total 2243 ml Output Total 3270 ml Balance -1027 ml Constitutional Vital Signs Date Time Temp Pulse Resp B/P Pulse Ox O2 Delivery O2 Flow Rate FiO2 02/07/17 10:00 104 02/07/17 08:00 100.5 102 20 120/84 100 02/07/17 08:00 40 02/07/17 08:00 102 02/07/17 07:36 100 40 02/07/17 06:00 111 02/07/17 04:00 108 02/07/17 04:00 40 02/07/17 04:00 99.6 108 14 133/65 99 02/07/17 03:57 100 40 02/07/17 02:00 115 02/07/17 01:49 100 40 02/07/17 00:00 40 02/07/17 00:00 100.3 114 14 129/60 99 02/07/17 00:00 114 02/06/17 22:00 120 02/06/17 21:00 100 100 02/06/17 20:31 100 40 02/06/17 20:00 40 02/06/17 20:00 100.9 106 14 125/58 100 02/06/17 20:00 106 02/06/17 18:00 109 02/06/17 16:00 100 02/06/17 16:00 99.5 100 14 115/57 100 02/06/17 16:00 40 02/06/17 15:12 100 40 02/06/17 14:00 123 02/06/17 12:00 100.7 116 20 133/64 100 02/06/17 12:00 40 02/06/17 12:00 116 02/06/17 11:53 100 40 02/07/17 07:00 Intake Total 2243 ml Output Total 3270 ml Balance -1027 ml (Veronica Tubbs) Review of Systems/Exam Exam Intubated, off sedation. Not following commands Left flap full but soft. Surgical wound is healing well. Sensorimotor: not following commands for testing, minimally withdraws x 4 to local pain stimuli Plantars silent b/l CN: pupils 2-3 mm equal (Veronica Tubbs) Medications Current Medications Current Medications Medications (Trade) Dose Ordered Sig/Alexandro Route PRN Reason Start Time Stop Time Status Last Admin Dose Admin Sodium Chloride (NS Flush) 2 ml UNSCH PRN IV FLUSH FLUSH AFTER USING IV ACCESS 01/27/17 17:30 Sodium Chloride (NS Flush) 2 ml BID IV FLUSH 01/27/17 21:00 02/06/17 20:02 Ondansetron HCl (Zofran Inj) 4 mg Q6H PRN IV NAUSEA OR VOMITING 01/27/17 17:30 Naloxone HCl (Narcan Inj) 0.4 mg UNSCH PRN IV SEE LABEL COMMENTS 01/27/17 17:30 Miscellaneous Information D/C ICU ELECTROLYTE ORDERS... UNSCH PRN .XX SEE DOSE INSTRUCTIONS 01/28/17 01:00 Miscellaneous Information ICU - CALL ORDERING PHYSIC... UNSCH PRN .XX SEE DOSE INSTRUCTIONS 01/28/17 01:00 Potassium Chloride (KCl 40 Meq Premix Inj) 100 ml @ 25 mls/hr UNSCH PRN IV ELECTROLYTE REPLACEMENT 01/28/17 01:00 02/01/17 01:28 Potassium Bicarb/ Potassium Chloride 50 meq 50 meq UNSCH PRN PO ELECTROLYTE REPLACEMENT 01/28/17 01:00 Potassium Chloride 100 ml @ 50 mls/hr UNSCH PRN IV ELECTROLYTE REPLACEMENT 01/28/17 01:00 Magnesium Sulfate 4 gm/Sodium Chloride 108 ml @ 54 mls/hr UNSCH PRN IV ELECTROLYTE REPLACEMENT 01/28/17 01:00 Magnesium Sulfate/ Sodium Chloride (Magnesium Sulfate Inj/NS Inj) 104 ml @ 52 mls/hr UNSCH PRN IV ELECTROLYTE REPLACEMENT 01/28/17 01:00 Magnesium Oxide 800 mg 800 mg UNSCH PRN PO ELECTROLYTE REPLACEMENT 01/28/17 01:00 Sodium Phosphate/ Sodium Chloride (Sodium Phosphate Inj/NS 250 ml Inj) 260 ml @ 43.333 mls/ hr UNSCH PRN IV ELECTROLYTE REPLACEMENT 01/28/17 01:00 01/29/17 08:49 Potassium Phosphate 2000 mg 2,000 mg UNSCH PRN PO ELECTROLYTE REPLACEMENT 01/28/17 01:00 Potassium Phosphate/Sodium Chloride (Potassium Phosphate Inj/NS 250 ml Inj) 260 ml @ 43.333 mls/ hr UNSCH PRN IV ELECTROLYTE REPLACEMENT 01/28/17 01:00 01/31/17 09:28 Labetalol HCl (Trandate Inj) 20 mg Q4H PRN IV PUSH SBP >150 01/29/17 10:15 Hydralazine HCl (Apresoline Inj) 20 mg Q4H PRN IV PUSH >150 01/29/17 10:15 01/29/17 13:04 Senna/Docusate Sodium (Shannon-Colace) 1 tab BID PO 01/29/17 21:00 02/07/17 09:58 Bisacodyl (Dulcolax Supp) 10 mg DAILY PRN RECTAL Constipation 01/29/17 10:15 Chlorhexidine Gluconate (Peridex 0.12% Liq) 15 ml BID@08,20 MT 01/29/17 20:00 02/07/17 08:00 Acetaminophen (Tylenol) 650 mg Q6H PRN PO FEVER 01/30/17 21:00 02/06/17 12:43 Fentanyl Citrate (fentaNYL INJ) 25 mcg Q2H PRN IV AGITATION 01/31/17 07:00 02/04/17 14:18 Bisacodyl 10 mg 10 mg DAILY RECTAL 01/31/17 09:00 02/01/17 10:14 Pharmacy Profile Note 0 ml @ 0 mls/hr UNSCH OTHER 02/03/17 07:30 Cefepime HCl/ Sodium Chloride (Maxipime Inj/NS Inj) 100 ml @ 200 mls/hr Q8H IV 02/03/17 09:00 02/07/17 09:57 Acetaminophen/ Hydrocodone Bitart (Dewar 5-325 Mg) 1 tab Q6H PRN PO PAIN 02/03/17 11:00 02/04/17 16:20 Valproic Acid 250 mg 250 mg TID PO 02/03/17 13:00 02/07/17 09:58 Vancomycin HCl/ Sodium Chloride (Vancomycin Inj/ NS 250 ml Inj) 262.5 ml @ 250 mls/hr Q12H IV 02/06/17 18:00 02/07/17 06:26 Enoxaparin Sodium (Lovenox Inj) 30 mg Q12H SQ 02/07/17 01:00 02/07/17 00:28 Bacitracin (Baciguent Oint) 1 applic BID TOPICAL 02/06/17 15:00 02/07/17 09:00 Amantadine HCl (Symmetrel Liq) 100 mg BID PO 02/06/17 16:07 02/07/17 09:57 Levetriacetam (Keppra Liq) 500 mg Q12HR NG 02/06/17 21:00 02/07/17 09:57 Famotidine (Pepcid) 20 mg BID NG 02/06/17 21:00 02/07/17 09:58 (Veronica Tubbs) Medical Decision Making MDM Remarks 46 y/o female s/p left decompressive craniotomy with evacuation large acute subdural hematoma with approximately 16 mm shift on 01/27/17 MRI Brain 02/06/17 with improved midline shift, there is b/l temporal contusions, scattered traumatic SAH (Veronica Tubbs) Plan Plan Remarks cont current care cont monitor and follow up neuro examination serial neuro checks (Veronica Tubbs) Attending Statement The exam, history, and the medical decision-making described in the above note were completed with the assistance of the mid-level provider. I reviewed and agree with the findings presented. I attest that I had a [id number] encounter with the patient on the same day, and personally performed and documented my assessment and findings in the medical record. (Bipin Salgado MD) Veronica Tubbs Feb 07, 2017 10:52 Bipin Salgado MD Feb 09, 2017 19:14
--- NOTE | 2017-02-07 14:11 | MG ---
cc: JUAN CARSON Lab No: [id number] Date: 02/07/2017 Age: Sex: F Race: TECHNIQUE: 17 channel EEG. DESCRIPTION: The background rhythm is generally slow in the delta frequency at roughly 3-4 Hz. Amplitude is 30-40 microvolts. There is more prominent slowing over the left hemisphere. Photic results in a poor driving response. INTERPRETATION: Abnormal study consistent with severe encephalopathy. MD ALTHEA Núñez/MARIA GUADALUPE /2:00 PM /2:05 PM
[2017-02-07 14:19] LABS: HEMATOCRIT 29.1 % (35.0-46.0); MEAN CORPUSCULAR HEMOGLOBIN 29.5 PG (27.0-34.0); MEAN CORPUSCULAR HGB CONC 32.8 % (32.0-36.0); PLATELET COUNT 625 TH/MM3 (150-450); RED BLOOD COUNT 3.23 MIL/MM3 (4.00-5.30); RED CELL DISTRIBUTION WIDTH 16.1 % (11.6-17.2); REVIEW FLAG FINAL; WHITE BLOOD COUNT 27.2 TH/MM3 (4.0-11.0)
[2017-02-07] MEDS: ACETAMINOPHEN 325 MG TAB PO PRN (14:50)
[2017-02-07 15:03] LABS: BICARBONATE 28.4 MEQ/L (21.0-32.0); POTASSIUM 4.2 MEQ/L (3.5-5.1)
--- NOTE | 2017-02-07 16:22 | HHI.IDPN ---
Note Infectious Disease Note ID coverage. Notes reviewed. Sedated on the vent. On CPAP. Spiking Temps. Sputum culture pending. Patient admitted as a trauma alert. Post evacuation of epidural hematoma, placement of a bolt and ventriculostomy. Antibiotics Vancomycin Cefepime Lines PIV Past Medical History None Allergies: Coded Allergies: No Known Allergies (Unverified , 01/31/17) per OBJECTIVE: Vital Signs Date Time Temp Pulse Resp B/P Pulse Ox O2 Delivery O2 Flow Rate FiO2 02/07/17 14:00 118 02/07/17 12:13 100 40 02/07/17 12:00 113 02/07/17 12:00 102.3 118 22 131/82 96 02/07/17 12:00 40 02/07/17 10:00 104 02/07/17 08:00 100.5 102 20 120/84 100 02/07/17 08:00 40 02/07/17 08:00 102 02/07/17 07:36 100 40 02/07/17 06:00 111 02/07/17 04:00 108 02/07/17 04:00 40 02/07/17 04:00 99.6 108 14 133/65 99 02/07/17 03:57 100 40 02/07/17 02:00 115 02/07/17 01:49 100 40 02/07/17 00:00 40 02/07/17 00:00 100.3 114 14 129/60 99 02/07/17 00:00 114 02/06/17 22:00 120 02/06/17 21:00 100 100 02/06/17 20:31 100 40 02/06/17 20:00 40 02/06/17 20:00 100.9 106 14 125/58 100 02/06/17 20:00 106 02/06/17 18:00 109 02/06/17 02/06/17 02/07/17 15:00 23:00 07:00 Intake Total 829 ml 849 ml 565 ml Output Total 1555 ml 855 ml 860 ml Balance -726 ml -6 ml -295 ml Intake IV Total 369 ml 402 ml 84 ml Tube Feeding 460 ml 327 ml 381 ml Other 120 ml 100 ml Output Urine Total 1550 ml 825 ml 850 ml Chest Tube Drainage Total 5 ml 30 ml 10 ml # Bowel Movements 1 0 Microbiology Date/Time Procedure Status Source Growth 02/02/17 15:25 Gram Stain - Final Resulted Cerebral Spinal Fluid Shunt Fluid 02/02/17 15:25 CSF Culture - Preliminary Resulted Acinetobacter Baumannii/Haemol Bacillus Species Not Anthracis 02/02/17 15:45 Gram Stain - Final Complete Sputum Endotracheal 02/02/17 15:45 Sputum Culture - Final Complete Sputum Endotracheal MODERATE GROWTH NORMAL RESPIRATORY LIZ 02/02/17 18:30 Aerobic Blood Culture - Preliminary Resulted Blood Peripheral NO GROWTH IN 2 DAYS 02/02/17 18:30 Anaerobic Blood Culture - Preliminary Resulted Blood Peripheral NO GROWTH IN 2 DAYS 02/02/17 18:45 Aerobic Blood Culture - Preliminary Resulted Blood Peripheral NO GROWTH IN 2 DAYS 02/02/17 18:45 Anaerobic Blood Culture - Preliminary Resulted Blood Peripheral NO GROWTH IN 2 DAYS 02/03/17 15:00 Gram Stain - Final Resulted Cerebral Spinal Fluid Shunt Fluid 02/03/17 15:00 CSF Culture - Preliminary Resulted Cerebral Spinal Fluid Shunt Fluid NO GROWTH IN 48 HOURS. Imaging Chest X-Ray 02/07/17 06 Signed Impressions: Service Date/Time: Tuesday, February 07, 2017 05:36 - CONCLUSION: 1. There is no evidence of pneumothorax. Luis Angel Bullock MD Chest X-Ray 02/05/17 0600 Signed Impressions: Service Date/Time: Sunday, February 05, 2017 05:29 - CONCLUSION: 1. There is no evidence of pneumothorax. Luis Angel Bullock MD Physical Exam GENERAL: sedated on the vent. NAD SKIN: Warm and dry. No rash HEENT: Incision L side of head is dry, no redness or drainage. No scleral icterus. CARDIOVASCULAR: Regular rate and rhythm. No murmurs, rubs or gallops. RESPIRATORY: Rhonchi at the bases. ABDOMEN: Soft, No reaction to palpation. Bowel sounds present. EXTREMITIES: No clubbing, cyanosis or edema. NEUROLOGICAL: Sedated PSYCHIATRIC: Unable to assess LINE: No evidence of infection Assessment & Plan IMPRESSION New fevers, possible sepsis, source? - ?VAP - ?CSF - has Acinetobacter and Bacillus; repeat negative; ?significance, ? colonization TBI, with epidural hematoma S/P OR, has bolt and EVD Respiratory failure Leukocytosis worse, ? reactive. UTI Cindy. RECOMMENDATION Add Micafungin for yeast coverage. . Continue Vancomycin Continue Cefepime Monitor sputum culture. Monitor temp Monitor progress Dontfraid,Tariq F MD Feb 07, 2017 16:22
--- NOTE | 2017-02-07 19:17 | HHI.CCPN ---
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 Large left temporoparietal subdural hematoma, right basal skull fracture through the petrous bone with extrusion of some brain matter on the right, fracture of the right scapula, left superior inferior ramus pubic fracture with minimal displacement and a right sacral fracture. Patient will be taken immediately to the operating room. Patient underwent a left frontotemporal craniectomy with evacuation of subdural hematoma and placement of ventriculostomy Orthopedic consult was obtained and no further operative management will be instituted 24 Hour Review/Hospital Course Patient has been in the ICU overnight intubated and ventilated 01/29/17 Neurologic status is unchanged ICP remains low Pupils are equal about 2 mm and somewhat reactive Patient remains on propofol fentanyl Hypertonic 3% saline at 30 cc/h Keppra No clinical suspicion of seizures 01/30/17 Patient is withdrawing all 4 extremities and localizes and opened her eyes ICP remains low around 8 mmHg Removed from propofol and fentanyl or any form of sedation Sodium 158 and hypertonic saline removed Remains intubated and ventilated and starting to pickup on her own the rate 01/31 open eyes spontaneously-move extremities ICP around 10 mmHg ventriculostomy 110cc/8hrs tolerating CPAP 02/01/17 ICP remains low around 8-10 mmHg Probably ventriculostomy can be safely removed soon as per neurosurgery Patient opening eyes and trying to follow some commands moves both lower extremities and right arm but very little in the left arm Patient is definitely neurologically improving Tolerated CPAP for about 4 hours 02/02/17 Patient neurologically unchanged. Opens eyes to sternal rub and moves all 4 extremities right more than left as described yesterday Does not follow commands Repeat CT scan shows evolving parietal trauma with edema however no new changes EEG consistent with encephalopathy and no seizures Patient is on Keppra and valproic acid. In this case valproic acid has been added by neuropsychology for unrelated reasons ICP remains around 8-9 mmHg and ventriculostomy is a 10 cm Will be probably able to remove either ICP bolt, ventriculostomy or both soon as per neurosurgery 02/04/17 Neurologically slightly improved patient's opening eyes Moves extremities but left side is clearly weaker than the right Right chest drain in position however still apical pneumothorax which is enlarging and we'll place another anterior drain Patient spiked fever to 103 yesterday Triple-lumen removed Venous ultrasound did not reveal any deep venous thrombosis in the arm or the shoulder girdle Patient doing well at this time continue antibiotics 02/05/17 off sedation slowly emerging CXR stable-keep drain on suction 02/06 sodium 141 hgb 11 moving all 4 extremities CXR no PTX NS cleared for lovenox 02/07/17 MRI shows BARBY clinically slowly emerging Objective Vital Signs Date Time Temp Pulse Resp B/P Pulse Ox O2 Delivery O2 Flow Rate FiO2 02/07/17 18:00 112 02/07/17 16:23 96 40 02/07/17 16:00 99.8 26 120/83 Intake and Output 02/06/17 02/06/17 02/06/17 07:59 15:59 23:59 Intake Total 756 ml 829 ml 849 ml Output Total 1000 ml 1555 ml 855 ml Balance -244 ml -726 ml -6 ml Result Diagram: 02/07/17 1404 02/07/17 1630 Imaging Last 24 hours Impressions Chest X-Ray 02/07/17 0600 Signed Impressions: Service Date/Time: Tuesday, February 07, 2017 05:36 - CONCLUSION: 1. There is no evidence of pneumothorax. Luis Angel Bullock MD Exam [employer] 6T Hemodynamic/Cardiac stable Pulmonary/Respiratory cpap/ps Abdomen/GI Nutrition soft,tolerating tube feeds Urinary Catheter Assessment Urinary Catheter: Yes Vascular Central Line Catheter Vascular Central Line Catheter: No Assessment and Plan Plan neuro status slowly improving HD stable CT right to suction continue tube feeds start SBT-needs to have better mental status for extubation will plan for trach next 48 hrs Antoinette Garner MD Feb 07, 2017 19:17
[2017-02-08] VITALS (19 sets, daily range): BP systolic 109–148; BP diastolic 55–63; PULSE 101–116; RESP 16–26; TEMP 99–102.2; O2SAT 98–100
[2017-02-08] MEDS: ENOXAPARIN SODIUM 30 MG/0.3 ML SYRINGE SQ SCH ×2 (01:00→12:44)
[2017-02-08] MEDS: CEFEPIME INJ 2,000 MG in SODIUM CHLORIDE 0.9% INJ 100 ML IV SCH ×3 (01:00→17:20)
[2017-02-08 05:44] LABS: HEMATOCRIT 28.5 % (35.0-46.0); MEAN CELL VOLUME 89.9 FL (80.0-100.0); MEAN CORPUSCULAR HGB CONC 33.4 % (32.0-36.0); PLATELET COUNT 505 TH/MM3 (150-450); RED BLOOD COUNT 3.17 MIL/MM3 (4.00-5.30); REVIEW FLAG FINAL; WHITE BLOOD COUNT 30.4 TH/MM3 (4.0-11.0)
[2017-02-08] MEDS ORDERED: PHARMACY ORDERED LAB ONE ×2 (05:45→13:45)
[2017-02-08] MEDS: VANCOMYCIN INJ 1,250 MG in SODIUM CHLOR 0.9% 250 ML INJ 250 ML IV SCH ×3 (05:59→21:26)
[2017-02-08] MEDS: BACITRACIN TOP OINT 15 GM TUBE TOPICAL SCH ×2 (09:00→21:00)
[2017-02-08] MEDS: levETIRAcetam 500 MG/5 ML UDC NG SCH ×2 (09:00→21:28)
[2017-02-08] MEDS: AMANTADINE HCL SOLN 100 MG/10 ML UDC NG SCH ×2 (09:00→09:23)
[2017-02-08] MEDS: SODIUM CHLOR 0.9% 1000 ML INJ 1,000 ML IV SCH ×2 (09:21→14:45)
[2017-02-08] MEDS: VALPROIC ACID SYRUP 250 MG/5 ML UDC PO SCH ×3 (09:23→17:20)
[2017-02-08] MEDS: FAMOTIDINE 20 MG TAB NG SCH ×2 (09:23→21:26)
[2017-02-08] MEDS: CHLORHEXIDINE 0.12% (ORAL KIT) 15 ML CUP MT SCH ×2 (09:24→21:28)
[2017-02-08] MEDS: DOCUSATE SODIUM 50 MG/SENNA 8.6 MG TAB PO SCH ×2 (09:24→21:26)
[2017-02-08] MEDS: SODIUM CHLORIDE 0.9% FLUSH 10 ML FLUSH IV FLUSH SCH ×2 (09:24→21:28)
[2017-02-08] MEDS: BISACODYL 10 MG SUPP RECTAL SCH (09:24)
--- NOTE | 2017-02-08 09:26 | HHI.IDPN ---
Subjective Subjective Remarks Patient is a 46-year-old female admitted as a trauma alert. She was apparently working in her house in the garage ceiling and she felt improved some of the rafters, and landed on her head. She was found to have significant traumatic brain injury, and also had some other fracture including scapular fracture and in the pelvic region. The orthopedic injuries were all being treated conservatively. She had significant eye murmur out to on her imaging study of the brain, and underwent emergent surgery on her brain for evacuation of the significant epidural hematoma, placement of a bolt, as well as a ventriculostomy. She has remained on the vent. She was on Unasyn since January 29. Starting February 01 she started having fevers, and no cultures were ordered. CSF culture is showing gram-variable segun on the Gram stain of the broth but it did not grow on culture media. She has been started on cefepime and vancomycin. Patient also has a chest tube for pneumothorax. Her chest x-ray has shown stable findings. Urinalysis unremarkable. She has a central line in the right IJ. Notes reviewed D/W RN Continues to have fevers Repeat cultures done this weekend For trach today Currently on CPAP Off sedation, and no interaction [address] Sanchez in place No central line WBC continues to rise Blood cultures have been negative Repeat CSF C/S neg so far First CSF C/S Bacillus and sensitive Acinetobacter Last chest x-ray clear Antibiotics Vancomycin Cefepime Lines PIV Past Medical History None Allergies: Coded Allergies: No Known Allergies (Unverified , 01/31/17) per Objective . Vital Signs Date Time Temp Pulse Resp B/P Pulse Ox O2 Delivery O2 Flow Rate FiO2 02/08/17 08:59 40 02/08/17 08:57 100 40 02/08/17 08:54 100 40 02/08/17 06:00 108 02/08/17 04:37 100 40 02/08/17 04:00 99.0 116 20 130/60 100 02/08/17 04:00 40 02/08/17 04:00 116 02/08/17 02:00 116 02/08/17 01:11 100 40 02/08/17 00:00 99.3 108 18 131/60 100 02/08/17 00:00 108 02/08/17 00:00 40 02/07/17 22:00 110 02/07/17 20:28 100 40 02/07/17 20:00 40 02/07/17 20:00 99.3 106 22 127/61 100 02/07/17 20:00 106 02/07/17 18:00 112 02/07/17 16:23 96 40 02/07/17 16:00 99.8 109 26 120/83 100 02/07/17 16:00 120 02/07/17 16:00 40 02/07/17 14:00 118 02/07/17 12:13 100 40 02/07/17 12:00 113 02/07/17 12:00 102.3 118 22 131/82 96 02/07/17 12:00 40 02/07/17 10:00 104 02/07/17 02/07/17 02/08/17 15:00 23:00 07:00 Intake Total 896 ml 977 ml 430 ml Output Total 810 ml 1550 ml 550 ml Balance 86 ml -573 ml -120 ml Intake IV Total 453 ml 505 ml 333 ml Tube Feeding 443 ml 352 ml 47 ml Other 120 ml 50 ml Output Urine Total 800 ml 1550 ml 550 ml Chest Tube Drainage Total 10 ml 0 ml . Laboratory Tests Test 02/06/17 02/07/17 02/08/17 10:02 14:04 05:15 Hemoglobin 9.2 GM/DL 9.5 GM/DL 9.5 GM/DL Hematocrit 27.3 % 29.1 % 28.5 % White Blood Count 27.2 TH/MM3 30.4 TH/MM3 Red Blood Count 3.23 MIL/MM3 3.17 MIL/MM3 Mean Corpuscular Volume 90.0 FL 89.9 FL Mean Corpuscular Hemoglobin 29.5 PG 30.0 PG Mean Corpuscular Hemoglobin 32.8 % 33.4 % Concent Red Cell Distribution Width 16.1 % 16.0 % Platelet Count 625 TH/MM3 505 TH/MM3 Mean Platelet Volume 7.4 FL 8.3 FL Laboratory Tests Test 02/06/17 02/07/17 02/07/17 10:02 14:04 16:30 Sodium Level 141 MEQ/L 135 MEQ/L 136 MEQ/L Potassium Level 4.1 MEQ/L 4.2 MEQ/L Chloride Level 105 MEQ/L 97 MEQ/L Carbon Dioxide Level 28.5 MEQ/L 28.4 MEQ/L Anion Gap 8 MEQ/L 10 MEQ/L Blood Urea Nitrogen 14 MG/DL 14 MG/DL Creatinine 0.48 MG/DL 0.54 MG/DL Estimat Glomerular Filtration 138 ML/MIN 120 ML/MIN Rate Random Glucose 121 MG/DL 123 MG/DL Calcium Level 8.3 MG/DL 8.6 MG/DL Microbiology Date/Time Procedure Status Source Growth 02/06/17 04:59 Aerobic Blood Culture - Preliminary Resulted Blood Peripheral NO GROWTH IN 1 DAY 02/06/17 04:59 Anaerobic Blood Culture - Preliminary Resulted Blood Peripheral NO GROWTH IN 1 DAY 02/06/17 05:06 Aerobic Blood Culture - Preliminary Resulted Blood Peripheral NO GROWTH IN 1 DAY 02/06/17 05:06 Anaerobic Blood Culture - Preliminary Resulted Blood Peripheral NO GROWTH IN 1 DAY 02/06/17 14:38 Urine Culture - Preliminary Resulted Urine Catheterized Urine Yeast Species 02/06/17 18:40 Gram Stain - Final Resulted Sputum Endotracheal 02/06/17 18:40 Sputum Culture - Preliminary Resulted Sputum Endotracheal IMMATURE GROWTH - REINCUBATE Imaging Chest X-Ray 02/05/17 0600 Signed Impressions: Service Date/Time: Sunday, February 05, 2017 05:29 - CONCLUSION: 1. There is no evidence of pneumothorax. Luis Angel Bullock MD Head CT 02/04/17 0600 Signed Impressions: Service Date/Time: February 04:39 - CONCLUSION: 1. Study is moderately degraded by streak and motion artifact limiting sensitivity. 2. Interval removal of the previously noted ventricular shunt catheter. 3. The low attenuation region in the right temporal lobe is no significant change. 4. No significant change in the left subdural hematoma. Kalin Tate MD Upper Extremity Ultrasound 02/04/17 0000 Signed Impressions: Service Date/Time: February 07:52 - CONCLUSION: No DVT is identified. Please note that portions of the basilic and cephalic vein are not visualized. Emerson Mariee MD Hand X-Ray 02/02/17 0000 Signed Impressions: Service Date/Time: Thursday, February 02, 2017 14:00 - CONCLUSION: No acute left hand abnormality is identified. Emerson Mariee MD Thoracic Spine CT 01/27/17 1700 Signed Impressions: Service Date/Time: Friday, January 27, 2017 17:20 - CONCLUSION: 1. No fracture or subluxation. 2. Minimal subcutaneous emphysema seen within the upper neck likely related to patient's temporal bone fracture. Eb Guerin MD Pelvis X-Ray [id number]/27/171699 Signed Impressions: Service Date/Time: Friday, January 27, 2017 16:54 - CONCLUSION: 1. Left pubic rami fractures. Otoniel Crain MD Lumbar Spine CT 01/27/171699 Signed Impressions: Service Date/Time: Friday, January 27, 2017 17:20 - CONCLUSION: 1. No fracture or subluxation of the lumbar spine. 2. There are fractures of the right sacrum discussed in detail on CT the abdomen/pelvis. Eb Guerin MD Chest CT 01/27/171699 Signed Impressions: Service Date/Time: Friday, January 27, 2017 17:25 - CONCLUSION: 1. Comminuted fracture involving the right scapula. 2. Minimal posterior atelectatic changes bilaterally. Juan Carlos Jc MD Cervical Spine CT 01/27/171699 Signed Impressions: Service Date/Time: Friday, January 27, 2017 17:24 - CONCLUSION: 1. No acute fracture or prevertebral soft tissue swelling. 2. Straightening of the normal cervical lordosis. 3. Cervical spondylosis from C3 through C6. 4. Mild bilateral foraminal narrowing at C3-4, C4-5 and C5-6. Juan Carlos Jc MD Abdomen/Pelvis CT [id number]/27/171699 Signed Impressions: Service Date/Time: Friday, January 27, 2017 17:25 - CONCLUSION: 1. Acute fractures along the right sacrum as well as the left superior and inferior pubic rami. 2. No intra-abdominal trauma identified. Juan Carlos Jc MD Radius/Ulna X-Ray 01/27/17 0000 Signed Impressions: Service Date/Time: Friday, January 27, 2017 16:54 - CONCLUSION: Soft tissue swelling involving the right mid forearm without underlying radial or ulnar fracture. Juan Carlos Jc MD Physical Exam GENERAL: Comfortable on CPAP, not on sedation, no interaction SKIN: Warm and dry. No generalized rash HEAD: Incision L side of head is dry, no redness or drainage. Previous tubes site in scalp dry EYES: Enola conjunctiva. No petechia or hemorrhage. Pupils equal, round and reactive to light. No scleral icterus. No injection or drainage. EARS, NOSE AND THROAT: Nose without bleeding or purulent nasal discharge. She is orally intubated. NECK: Trachea midline. Supple and not tender, no meningeal signs. Line site with no evidence of infection CARDIOVASCULAR: Regular rate and rhythm. No murmurs, rubs or gallops heard RESPIRATORY: 2 CT sites ok. Decreased breath sounds at the bases ABDOMEN: Soft, nondistended, NO reaction to deep palpation. Bowel sounds present and normoactive. No organomegaly. EXTREMITIES: No clubbing, cyanosis, or joint effusion. Mild pedal edema. Hands edematous. Well perfused and warm. NEUROLOGICAL: No interaction PSYCHIATRIC: Unable to assess LINE: No evidence of infection : Sanchez in place urine looks ok Assessment & Plan Remarks IMPRESSION New fevers, possible sepsis, source? - Continues to have fevers - ?VAP - has line - ?CSF - has Acinetobacter and Bacillus; repeat negative; ?significance, ? colonization TBI, with epidural hematoma S/P OR, has bolt and EVD Respiratory failure Leukocytosis worse, ?reactive - CXR negative - nothing new on C/S RECOMMENDATION Follow C/S Follow CBC Continue Vancomycin and Cefepime Add Diflucan Monitor temp Monitor progress For tracheostomy today If she continues to have fevers, and cultures negative, will reevaluate antibiotic Discussed with Ai Santana MD Feb 08, 2017 09:26
--- NOTE | 2017-02-08 09:31 | HHI.NSPN ---
(Marques MorenoCash CHRIS) History Chief Complaint: Unable to obtain due to clinical condition. (Marques Moreno) Interval History 01/27: Patient is a middle-aged female who according to her family fell through a garage ceiling landing on the floor one-story down. Positive loss of consciousness. Patient was reportedly unresponsive immediately after the event. No seizure activity reported. She was GCS 3-4 at the scene and brought to [facility] emergency room as a trauma alert per EMS. She was intubated in the emergency room. She was noted to have a fixed dilated left pupil and pinpoint right pupil in the emergency room on initial evaluation. The undersigned reviewed the patient's CT scan images shortly after completion while the patient was in the CT scanning suite. Images revealed a large left hemispheric acute subdural hematoma with approximate 16 mm midline shift, significant effacement of the left ventricle and cisterns. Patient was taken emergently to the operating room from the CT scanning suite. 01/28: The patient is intubated and mechanically ventilated with propofol & fentanyl for sedation. She is on norepinephrine for blood pressure support which Nursing states she is titrating down. Nursing also reported that the patient did squeeze with her hands this morning. The patient was transfused this morning for a haemoglobin of 7.4. 01/29: The patient remains intubated and mechanically ventilated. The propofol & fentanyl drips have been off since 929 this morning. She is no longer on any vasopressors. Saline 3% is infusing. Nursing states she is withdrawing but has not had any eye opening. ICP has been running 4 to 5 on the ventriculostomy per Nursing and that the bolt pressure is not being used since it was reportedly not in proper position. Nursing also reports excessive drainage from the ventriculostomy. 01/30: Patient intubated on minimal sedation. Not opening eyes to verbal or tactile stimulation 01/31: Patient remains intubated on minimal sedation. At this point she is opening her eyes and tracking to verbal stimulation. 02/01: The patient continues to be intubated and mechanically ventilated. The fentanyl was discontinued this morning.Nursing reported that the left pupil appeared slightly larger this morning and that the ventriculostomy ICP has been ranging between 5 and 10. 02/02: The patient is still intubated and mechanically ventilated. She remains off any sedation. Nursing reported that she did follow commands to move the right hand once yesterday. When an EEG was done yesterday the tech reported to Nursing that there was fresh blood to the right side of the head. 02/03: The patient remains intubated and mechanically ventilated. She is noted to be moving the right side extremities spontaneously. Nursing reports that she also was withdrawing on the left to noxious stimuli. The Central Service Tech is preparing to replace the chest tube. The patient did spike a temperature to 103.1 yesterday afternoon. 02/04: The patient is still intubated and mechanically ventilated. She is moving the right lower extremity spontaneously. Nursing reports no response to stimuli with the left upper extremity, otherwise she is withdrawing still. The ventriculostomy was withdrawn yesterday due to Gram variable rods noted on the Gram stain off the CSF specimen sent for culture when she spiked her temperature on . 8/5: intubated, sedation off. not opening eyes or following command. withdraws x 4. 8/6: MRI Brain completed yesterday, otherwise no changes to neuro checks overnight 02/08: When seen this morning the patient was intubated and mechanically ventilated. She was not on any drips for sedation. Respiratory was present in the room and was going to place her on CPAP. (Marques Moreno) System Review Comments Unable to obtain due to clinical condition. (Marques Moreno) Exam Results Vital Signs Date Time Temp Pulse Resp B/P Pulse Ox O2 Delivery O2 Flow Rate FiO2 02/08/17 08:54 100 40 02/08/17 06:00 108 02/08/17 04:00 99.0 20 130/60 Intake and Output 02/07/17 02/07/17 02/08/17 08:00 16:00 00:00 Intake Total 565 ml 896 ml 977 ml Output Total 860 ml 810 ml 1550 ml Balance -295 ml 86 ml -573 ml (Marques Moreno) Physical Examination GENERAL: The patient is intubated and mechanically ventilated w/o any sedation. SKIN: Skin warm & dry. Multiple abrasions & ecchymosis to extremities healing w/ o complication, ecchymosis to left side of head. Right parietal scalp laceration. No rashes or other lesions noted. HEENT: Well approximated left-sided craniotomy w/intact mendel and pressure monitoring bolt & ventriculostomy insertions sites, w/o any evident drainage, erythema or streaking. Flap full but soft. PERRLA. Orally intubated. OGT. NECK: No JVD, trachea midline. CARDIOVASCULAR: S1S2 w/RRR w/o M/G/R, radial & pedal pulses 2+ bilaterally, cap refill < 2 sec, no pedal edema. Monitor is sinus tachycardia w/o any ectopy noted. RESPIRATORY: CTAB w/o W/R/R, equal excursion, nonlaboured, intubated and mechanically ventilated. Right-sided tube thoracotomies x2. GASTROINTESTINAL: Abdomen soft, bowel sounds not appreciated, OGT clamped. MUSCULOSKELETAL: Scattered abrasions & ecchymosis. No evident deformities or clubbing. NEUROLOGICAL: GCS 6T (E1 V1T M4). No eye opening to voice & noxious stimuli. PERRLA 3mm brisk. Does not follow any commands, no spontaneous movement noted, no response to localised noxious stimuli, strong flexion response w/RUE only to centralised noxious stimulus. Unable to assess sensation. (Marques Moreno) Lab, Micro, Other Results Allergies Coded Allergies Type Severity Reaction Last Updated Verified No Known Allergies 01/31/17 No Recent Impressions Chest X-Ray 02/07/17 0600 Signed Impressions: Service Date/Time: Tuesday, February 07, 2017 05:36 - CONCLUSION: 1. There is no evidence of pneumothorax. Luis Angel Bullock MD Brain MRI 02/06/17 0000 Signed Impressions: Service Date/Time: Monday, February 06, 2017 21:31 - CONCLUSION: 1. Postoperative partial left craniectomy for decompression and evacuation of left subdural hematoma. There is some residual subdural hematoma present predominantly posteriorly in the occipital region and posterior fossa. 2. Bilateral temporal lobe contusions with measurements given above. Scattered subarachnoid hemorrhage. 3. Fluid in the temporal bones bilaterally and in the sphenoid sinus. There minimal right to left midline shift. Multiple hemosiderin deposits noted on the susceptibility weighted images especially over both convexities and on the left side laterally. Juan Bajwa MD ///// 06:00 18:00 06:00 18:00 06:00 18:00 Intake Total 2080 ml 829 ml 1414 ml 896 ml 1407 ml Output Total 1975 ml 1555 ml 1715 ml 810 ml 2100 ml Balance 105 ml -726 ml -301 ml 86 ml -693 ml Intake IV Total 1296 ml 369 ml 486 ml 453 ml 838 ml Tube Feeding 784 ml 460 ml 708 ml 443 ml 399 ml Other 220 ml 170 ml Output Urine Total 1975 ml 1550 ml 1675 ml 800 ml 2100 ml Chest Tube Drainage Total 5 ml 40 ml 10 ml 0 ml # Bowel Movements 1 0 Laboratory Tests Test 02/05/17 02/06/17 02/06/17 02/06/17 10:00 05:06 10:02 14:38 Vancomycin Level Trough 10.2 MCG/ML 19.9 MCG/ML White Blood Count 14.1 TH/MM3 Red Blood Count 2.37 MIL/MM3 Hemoglobin 7.4 GM/DL 9.2 GM/DL Hematocrit 22.4 % 27.3 % Mean Corpuscular Volume 94.7 FL Mean Corpuscular Hemoglobin 31.2 PG Mean Corpuscular Hemoglobin 33.0 % Concent Red Cell Distribution Width 16.1 % Platelet Count 294 TH/MM3 Mean Platelet Volume 9.0 FL Neutrophils (%) (Auto) 80.0 % Lymphocytes (%) (Auto) 10.2 % Monocytes (%) (Auto) 7.6 % Eosinophils (%) (Auto) 2.0 % Basophils (%) (Auto) 0.2 % Neutrophils # (Auto) 11.3 TH/MM3 Lymphocytes # (Auto) 1.4 TH/MM3 Monocytes # (Auto) 1.1 TH/MM3 Eosinophils # (Auto) 0.3 TH/MM3 Basophils # (Auto) 0.0 TH/MM3 CBC Comment AUTO DIFF Differential Total Cells 100 Counted Neutrophils % (Manual) 83 % Band Neutrophils % 3 % Lymphocytes % 8 % Monocytes % 2 % Eosinophils % 1 % Neutrophils # (Manual) 12.5 TH/MM3 Metamyelocytes 3 % Nucleated Red Blood Cells 3 /100 WBC Differential Comment FINAL DIFF MANUAL Platelet Estimate NORMAL Platelet Morphology Comment NORMAL Polychromasia 2.1 % Sodium Level 141 MEQ/L Potassium Level 4.1 MEQ/L Chloride Level 105 MEQ/L Carbon Dioxide Level 28.5 MEQ/L Anion Gap 8 MEQ/L Blood Urea Nitrogen 14 MG/DL Creatinine 0.48 MG/DL Estimat Glomerular Filtration 138 ML/MIN Rate Random Glucose 121 MG/DL Calcium Level 8.3 MG/DL Urine Color YELLOW Urine Turbidity HAZY Urine pH 7.0 Urine Specific [place] 1.024 Urine Protein TRACE mg/dL Urine Glucose (UA) NEG mg/dL Urine Ketones 10 mg/dL Urine Occult Blood NEG Urine Nitrite NEG Urine Bilirubin NEG Urine Urobilinogen LESS THAN 2.0 MG/DL Urine Leukocyte Esterase NEG Urine WBC 6 /hpf Urine Bacteria OCC /hpf Urine Hyaline Casts 2 /lpf Urine Mucus FEW /lpf Urine Yeast (Budding) FEW Microscopic Urinalysis Comment CATH-CULTURE IND Test 02/07/17 02/07/17 02/08/17 14:04 16:30 05:15 White Blood Count 27.2 TH/MM3 30.4 TH/MM3 Red Blood Count 3.23 MIL/MM3 3.17 MIL/MM3 Hemoglobin 9.5 GM/DL 9.5 GM/DL Hematocrit 29.1 % 28.5 % Mean Corpuscular Volume 90.0 FL 89.9 FL Mean Corpuscular Hemoglobin 29.5 PG 30.0 PG Mean Corpuscular Hemoglobin 32.8 % 33.4 % Concent Red Cell Distribution Width 16.1 % 16.0 % Platelet Count 625 TH/MM3 505 TH/MM3 Mean Platelet Volume 7.4 FL 8.3 FL Sodium Level 135 MEQ/L 136 MEQ/L Potassium Level 4.2 MEQ/L Chloride Level 97 MEQ/L Carbon Dioxide Level 28.4 MEQ/L Anion Gap 10 MEQ/L Blood Urea Nitrogen 14 MG/DL Creatinine 0.54 MG/DL Estimat Glomerular Filtration 120 ML/MIN Rate Random Glucose 123 MG/DL Calcium Level 8.6 MG/DL Valproic Acid (Depakene) Level 50 MCG/ML Vital Signs Date Time Temp Pulse Resp B/P Pulse Ox O2 Delivery O2 Flow Rate FiO2 02/08/17 08:54 100 40 02/08/17 06:00 108 02/08/17 04:37 100 40 02/08/17 04:00 99.0 116 20 130/60 100 02/08/17 04:00 40 02/08/17 04:00 116 02/08/17 02:00 116 02/08/17 01:11 100 40 02/08/17 00:00 99.3 108 18 131/60 100 02/08/17 00:00 108 02/08/17 00:00 40 02/07/17 22:00 110 02/07/17 20:28 100 40 02/07/17 20:00 40 02/07/17 20:00 99.3 106 22 127/61 100 02/07/17 20:00 106 02/07/17 18:00 112 02/07/17 16:23 96 40 02/07/17 16:00 99.8 109 26 120/83 100 02/07/17 16:00 120 02/07/17 16:00 40 02/07/17 14:00 118 02/07/17 12:13 100 40 02/07/17 12:00 113 02/07/17 12:00 102.3 118 22 131/82 96 02/07/17 12:00 40 02/07/17 10:00 104 02/07/17 08:00 100.5 102 20 120/84 100 02/07/17 08:00 40 02/07/17 08:00 102 02/07/17 07:36 100 40 02/07/17 06:00 111 02/07/17 04:00 108 02/07/17 04:00 40 02/07/17 04:00 99.6 108 14 133/65 99 02/07/17 03:57 100 40 02/07/17 02:00 115 02/07/17 01:49 100 40 02/07/17 00:00 40 02/07/17 00:00 100.3 114 14 129/60 99 02/07/17 00:00 114 02/06/17 22:00 120 02/06/17 21:00 100 100 02/06/17 20:31 100 40 02/06/17 20:00 40 02/06/17 20:00 100.9 106 14 125/58 100 02/06/17 20:00 106 02/06/17 18:00 109 02/06/17 16:00 100 02/06/17 16:00 99.5 100 14 115/57 100 02/06/17 16:00 40 02/06/17 15:12 100 40 02/06/17 14:00 123 02/06/17 12:00 100.7 116 20 133/64 100 02/06/17 12:00 40 02/06/17 12:00 116 02/06/17 11:53 100 40 02/06/17 10:00 115 02/06/17 08:35 100 40 02/06/17 08:00 98.7 108 14 122/58 100 02/06/17 08:00 109 02/06/17 08:00 108 02/06/17 08:00 40 02/06/17 04:30 100 40 02/06/17 04:00 40 02/06/17 04:00 101.0 99 14 127/78 100 02/06/17 02:00 138 02/06/17 01:40 100 40 02/06/17 00:00 40 02/06/17 00:00 102.0 138 25 107/53 100 02/06/17 00:00 138 02/05/17 22:00 115 02/05/17 20:30 100 40 02/05/17 20:00 99.8 108 28 136/60 100 02/05/17 20:00 40 02/05/17 20:00 106 02/05/17 18:00 114 02/05/17 16:56 100 40 02/05/17 16:00 116 02/05/17 16:00 101.8 116 16 140/62 100 02/05/17 16:00 40 02/05/17 15:31 95 40 02/05/17 14:00 112 02/05/17 13:39 40 02/05/17 12:00 99.4 94 14 115/59 100 02/05/17 12:00 94 02/05/17 12:00 40 02/05/17 11:30 100 40 (Marques Moreno) Medical Decision Making Impression and Plan Impression: 1. Severe acute left hemisphere subdural hematoma with severe midline shift and mass effect. 2. Right temporal bone fracture-nondisplaced Leukocytosis, interval increase (27.2=>30.4) Anaemia, stable (9.5=>9.5) Thrombocytosis, interval improvement (625=>505) Thrombocytopenia, resolved Sodium 136 yesterday, pending this morning Hypokalemia, resolved eGFR WNL Hypophosphatemia,resolved CT brain demonstrates no significant change in the left SDH or the right temporal lobe low attenuation region compared to . MRI brain demonstrates some residual left SDH to occipital region & posterior fossa, bilateral temporal lobe contusions & scattered SAH, with a minimal right to left shift. There are multiple haemosiderin deposits noted on susceptibility weighted images over both convexities and the left lateral. T max 102.3 at noon yesterday. Patient remains critical, questionable stable neurological response. POD #12 () s/p: 1. Left decompressive frontotemporoparietal craniotomy for evacuation of acute subdural hematoma. 2. Left frontal ventriculostomy catheter placement 3. Left frontal twist drill for intracranial pressure monitor placement Plan: Primary management per Central Service Tech/Trauma. Frequent neuro checks. Stat CT brain for worsening neuro status. Daily sodium level, maintain sodium in 145-153 range. Continuing ventilatory support and full sedation. Seizure prophylaxis. Ulcer prophylaxis. Continue non chemical DVT prophylaxis. Okay for Lovenox. D/C mendel today to left craniotomy flap. Will consider CT brain tomorrow. (Marques Moreno) Attending Statement I have personally seen and examined the patient on the date of this note. Pertinent documentation and study results have been reviewed by the undersigned. I have personally developed the treatment plan and performed medical decision making. Agree with findings, exam, and treatment plan as noted above. On my examination today, the patient remains essentially unresponsive. No eye opening. Minimal movement upper extremities to deep pain Discussed with palliative care today. Recent MRI reviewed. Overall prognosis remains poor, although she is relatively early out from the initial injury. Continuing ventilator support, nutrition. (Nic Bahena MD) Marques Moreno Feb 08, 2017 09:31 Nic Bahena MD Feb 08, 2017 23:38
[2017-02-08 11:05] LABS: BICARBONATE 28.7 MEQ/L (21.0-32.0); POTASSIUM 4.9 MEQ/L (3.5-5.1)
--- NOTE | 2017-02-08 11:11 | RADRPT ---
EXAM DATE/TIME: 02/08/2017 10:29 [facility] COMPARISON: CHEST SINGLE AP, February 07, 2017, 5:36. INDICATIONS : Pneumothorax. MEDICAL HISTORY : None. SURGICAL HISTORY : Craniotomy. ENCOUNTER: Initial ACUITY: 1 week PAIN SCORE: Non-responsive. LOCATION: Bilateral chest FINDINGS: Large bore chest tube is present on the right without pneumothorax. The left lung is clear. ET tube and nasogastric tube are in good position. Small bore chest tube on the right appears to be in the subcutaneous tissues. Correlation suggested. CONCLUSION: Large bore chest tube on the right. Apparent small bore chest tube subcutaneous tissues on the right . There is no pneumothorax. Israel Dominguez MD FACR on February 08, 2017 at 11:08 Board Certified Radiologist. This report was verified electronically.
--- NOTE | 2017-02-08 11:40 | PD.CONS ---
Consult Service Palliative Care . Consult Requested By Dr. Rashad Moreira . Primary Care Physician Unknown . Reason for Consultation a. To assist with evaluation and management of symptoms including: pain; dyspnea; encephalopathy b. To assist medical decision maker(s) with: better understanding of current medical conditions; weighing benefits/burdens of medical treatment options; making medical treatment decisions. . HPI History of Present Illness The patient is a 46-year-old female who was brought to the [facility] Emergency Department as a "trauma alert" on 01/27/17. The history of the trauma is somewhat vague, but apparently the patient was doing some work on her house and fell from the level of her attic to the ground floor and may have landed on her head. Paramedics noted a GCS of 3-4 upon arrival at the scene. The patient was ventilated by [id number] on the way to the emergency department. Upon arrival, she was noted to have a fixed and dilated left pupil. The right pupil was pinpoint 1 mm. No other history was available at the time of emergency department presentation. Physical examination in the emergency department noted the following vital signs > temperature 98.2; pulse 87; respiratory rate 14; blood pressure 120/ 74; the initial pulse oximetry was 100% on an FiO2 of 45 mechanical ventilation. The emergency supervisor sewing department noted the following on exam > patient was well-nourished. C-spine and backboard was in place upon arrival. There is matted blood on the right side of her head. There was blood and questionable brain matter in her hair. Left pupil is fixed and dilated. Right pupil 1 mm as noted above. There was blood in the oropharynx. There was blood noted in the right ear canal. Occasional agonal respirations were noted on top of the [id number] ventilation. Cardiovascular exam showed a regular rate and rhythm without murmur. Abdomen was benign. No obvious musculoskeletal abnormalities. There is bruising to her right forearm. GCS was 3. Babinski noted to be equivocal. Initial diagnostic studies revealed the following: * CBC showed WBC 14.3; hemoglobin 12.7 Hemoccult: Platelet count 300 * Coagulation profile showed PT 10.7; INR 1.0 * Bedside chemistry panel showed sodium 142; potassium 3.2; chloride 104; BUN 17 ; creatinine 1.0; glucose 123; * CT of the head showed a large acute subdural hematoma along the left frontal parietal and temporal lobes measuring 20 mm in greatest width with possible additional epidural component more superiorly. There was approximately 17 mm of subfalcine herniation to the right as well as diffuse effacement of the left cerebral sulci area there was an acute right temporal bone fracture. There were fluid levels within the right maxillary sinus and left sphenoid sinus. * Thoracic spine x-rays remarkable only for some minimal subcutaneous emphysema within the upper neck * Pelvis x-ray showed a left pubic ramus fracture * Chest CT showed comminuted fracture involving the right scapula * Abdomen/pelvis CT showed acute fractures along the right sacrum as well as the left superior and inferior pubic rami. No intra-abdominal trauma identified The patient was emergently intubated in the emergency department trauma room. Neurosurgery was consulted. Dr. Bahena took the patient emergently to the operating room for decompression and underwent left sided fronto-temporal craniotomy with evacuation of subdural hematoma and placement of ventriculosotmy. The patient has remained in the SICU. There has been minimal neurological recovery. Even with sedation off, she is not opening eyes or following commands though she does withdraw all 4 extremities to noxious stimuli. She is tolerating CPAP trials for hours at a time. She has recently developed fevers and ID has been consulted. Source of the fevers is unclear. ID is considering ventilator acquired pneumonia versus line infection versus CSF infection. CSF did culture out Acinetobacter and bacillus but repeat was negative. .She is off all sedation at time of my visit. I have spoken with Dr. Moreira and with Dr. Bahena about this patient. . . Function/Cognitive Trajectory Patient was fully functional, physically active, and reportedly in excellent health prior to her accident per her family. . Review of Systems ROS Limitations: Clinical Condition (Patient is intubated, minimally responsive in the SICU. Family repeatedly tells me she was in excellent health with no health problems or concerns. ) Past Family Social History Coded Allergies: No Known Allergies (Unverified , 01/31/17) per Past Medical History * Family reports no medical problems or health concerns prior to fall. . Past Surgical History * Hysterectomy * Breast reduction * left sided fronto-temporal craniotomy with evacuation of subdural hematoma and placement of ventriculosotmy . Reported Medications Pre-hospital medications... Patient was on no prescription medications. She did take different types of nutritional supplements. . Current Medications Medications (Trade) Dose Ordered Sig/Alexandro Route Start Time Stop Time Status Last Admin (NS Flush) 2 ml UNSCH PRN IV FLUSH 01/27/17 17:30 (NS Flush) 2 ml BID IV FLUSH 01/27/17 21:00 02/08/17 09:24 (Zofran Inj) 4 mg Q6H PRN IV 01/27/17 17:30 (Narcan Inj) 0.4 mg UNSCH PRN IV 01/27/17 17:30 Miscellaneous Information D/C ICU ELECTROLYTE ORDERS... UNSCH PRN .XX 01/28/17 01:00 Miscellaneous Information ICU - CALL ORDERING PHYSIC... UNSCH PRN .XX 01/28/17 01:00 (KCl 40 Meq Premix Inj) 100 ml @ 25 mls/hr UNSCH PRN IV 01/28/17 01:00 02/01/17 01:28 Potassium Bicarb/ Potassium Chloride 50 meq 50 meq UNSCH PRN PO 01/28/17 01:00 Potassium Chloride 100 ml @ 50 mls/hr UNSCH PRN IV 01/28/17 01:00 Magnesium Sulfate 4 gm/Sodium Chloride 108 ml @ 54 mls/hr UNSCH PRN IV 01/28/17 01:00 (Magnesium Sulfate Inj/NS Inj) 104 ml @ 52 mls/hr UNSCH PRN IV 01/28/17 01:00 Magnesium Oxide 800 mg 800 mg UNSCH PRN PO 01/28/17 01:00 (Sodium Phosphate Inj/NS 250 ml Inj) 260 ml @ 43.333 mls/ hr UNSCH PRN IV 01/28/17 01:00 01/29/17 08:49 Potassium Phosphate 2000 mg 2,000 mg UNSCH PRN PO 01/28/17 01:00 (Potassium Phosphate Inj/NS 250 ml Inj) 260 ml @ 43.333 mls/ hr UNSCH PRN IV 01/28/17 01:00 01/31/17 09:28 (Trandate Inj) 20 mg Q4H PRN IV PUSH 01/29/17 10:15 (Apresoline Inj) 20 mg Q4H PRN IV PUSH 01/29/17 10:15 01/29/17 13:04 (Shannon-Colace) 1 tab BID PO 01/29/17 21:00 02/08/17 09:24 (Dulcolax Supp) 10 mg DAILY PRN RECTAL 01/29/17 10:15 (Peridex 0.12% Liq) 15 ml BID@08,20 MT 01/29/17 20:00 02/08/17 09:24 (Tylenol) 650 mg Q6H PRN PO 01/30/17 21:00 02/07/17 14:50 (fentaNYL INJ) 25 mcg Q2H PRN IV 01/31/17 07:00 02/04/17 14:18 Bisacodyl 10 mg 10 mg DAILY RECTAL 01/31/17 09:00 02/08/17 09:24 Pharmacy Profile Note 0 ml @ 0 mls/hr UNSCH OTHER 02/03/17 07:30 (Maxipime Inj/NS Inj) 100 ml @ 200 mls/hr Q8H IV 02/03/17 09:00 02/08/17 09:22 ([place]aufort 5-325 Mg) 1 tab Q6H PRN PO 02/03/17 11:00 02/04/17 16:20 (Depakene Liq) 250 mg TID PO 02/03/17 13:00 02/08/17 09:23 (Lovenox Inj) 30 mg Q12H SQ 02/07/17 01:00 02/08/17 01:00 (Baciguent Oint) 1 applic BID TOPICAL 02/06/17 15:00 02/08/17 09:00 (Keppra Liq) 500 mg Q12HR NG 02/06/17 21:00 02/08/17 09:00 Famotidine 20 mg 20 mg BID NG 02/06/17 21:00 02/08/17 09:23 Vancomycin HCl 1250 mg/Sodium Chloride 262.5 ml @ 250 mls/hr Q8H IV 02/07/17 14:00 02/08/17 05:59 (NS 1000 ml Inj) 1,000 ml @ 50 mls/hr Q20H IV 02/07/17 18:45 02/08/17 09:21 Amantadine HCl 100 mg 100 mg DAILY NG 02/08/17 07:00 02/08/17 09:23 (Diflucan 400 Mg Premix Bag) 200 ml @ 100 mls/hr Q24H IV 02/08/17 10:00 (Sodium Chloride) 1 gm DAILY PO 02/08/17 10:15 . Family History * Father with non-insulin requiring diabetes * Paternal grandfather with leukemia * Maternal grandfather with heart disease. . Substance Use Tobacco: Lifetime non-smoker Alcohol: No history of abuse Prescription med abuse: No history of abuse Illicits: No known use of illicits. . Psychosocial History Originally from [facility]. Patient and her family were living in [place], [place] but in the process of moving to [facility] to be near her mother and father. High school graduate once. x 27 years. 4 children -- 1 daughter; 3 sons 2 brothers; 1 sister. Mother and father live in [place], [place] . Spiritual/Cultural Factors Orthodox and spirituality have played an important role in her life. She is a member of the [employer] in [facility]. Hospital water resources project manager has already visited. Mother tells me there is a lot of prayer support for the patient. . . Living Will: Never completed Health Care Surrogate: Never completed Durable Power of Electronic Controls Repairer Supervisor: Never completed Date completed: No advance directive completed. . Health Care Surrogate(s): No advance directive completed. . Documented care wishes: No written documentation of health care preferences / goals. . Today's verbally stated goals: Patient unable to verbally state goals. She is not expected to recover to the point where she is able to do so. . Family/friends goals: Family feels that patient would continue to want full aggressive care including tracheostomy and PEG in spite of poor prognosis for meaningful neurological recovery. . Ethical and Legal Issues Patient is incapacitated to make her own health care decisions. There is no reasonable probability of her recovering capacity to do so over the next weeks to months if at all. . Physical Exam Vital Signs Date Time Temp Pulse Resp B/P Pulse Ox O2 Delivery O2 Flow Rate FiO2 02/08/17 08:59 40 02/08/17 08:57 100 40 02/08/17 08:54 100 40 02/08/17 06:00 108 02/08/17 04:37 100 40 02/08/17 04:00 99.0 116 20 130/60 100 02/08/17 04:00 40 02/08/17 04:00 116 02/08/17 02:00 116 02/08/17 01:11 100 40 02/08/17 00:00 99.3 108 18 131/60 100 02/08/17 00:00 108 02/08/17 00:00 40 02/07/17 22:00 110 02/07/17 20:28 100 40 02/07/17 20:00 40 02/07/17 20:00 99.3 106 22 127/61 100 02/07/17 20:00 106 02/07/17 18:00 112 02/07/17 16:23 96 40 02/07/17 16:00 99.8 109 26 120/83 100 02/07/17 16:00 120 02/07/17 16:00 40 02/07/17 14:00 118 02/07/17 12:13 100 40 02/07/17 12:00 113 02/07/17 12:00 102.3 118 22 131/82 96 02/07/17 12:00 40 . 02/07/17 02/08/17 19:00 07:00 Intake Total 896 ml 1407 ml Output Total 810 ml 2100 ml Balance 86 ml -693 ml Intake IV Total 453 ml 838 ml Tube Feeding 443 ml 399 ml Other 170 ml Output Urine Total 800 ml 2100 ml Chest Tube Drainage Total 10 ml 0 ml . Exam CONSTITUTIONAL/GENERAL: This is an adequately nourished patient, intubated, minimally responsive in an SICU bed. TUBES/LINES/DRAINS: Chest tubes (right sided anterior and lateral) ; peripheral iv; zhong catheter; orotracheal tube; orogastric tube; soft wrist restraints; anti-contracture boots SKIN: No jaundice, rashes, or lesions. Ecchymoses on upper extremities. No wounds seen anteriorly. Skin temperature appropriate. Not diaphoretic. HEAD: Healing left craniotomy wound. EYES: Pupils equal and round and reactive. Not tracking. No scleral icterus. No injection or drainage. Fundi not examined. ENT: Unable to assess hearing -- does not respond to voice. Nose without bleeding or purulent drainage. Throat without visible erythema, exudates, masses , or lesions though difficult to assess due to intubations. NECK: Trachea midline. No palpable thyroid enlargement or nodularity. CARDIOVASCULAR: Regular rate and rhythm without murmurs, gallops, or rubs. No JVD. Peripheral pulses symmetric. RESPIRATORY/CHEST: Symmetric, unlabored respirations. Clear to auscultation. Breath sounds equal bilaterally. No wheezes, rales, or rhonchi. GASTROINTESTINAL: Abdomen soft, non-tender, nondistended. No hepato-splenomegaly , or palpable masses. No guarding. Bowel sounds present. GENITOURINARY: Without palpable bladder distension. Zhong catheter in place. MUSCULOSKELETAL: Extremities without clubbing, cyanosis, or edema. No mottling. LYMPHATICS: No palpable cervical or supraclavicular adenopathy. NEUROLOGICAL: Few spontaneous movements on right side. Withdraws all 4 extremities to noxious stimuli. Does not awaken to voice or exam. Unable to follow commands. PSYCHIATRIC: Unable to assess due to level of responsiveness. . Diagnostic Tests Laboratory Laboratory Tests Test 02/06/17 02/06/17 02/06/17 02/07/17 05:06 10:02 14:38 14:04 White Blood Count 14.1 TH/MM3 27.2 TH/MM3 (4.0-11.0) (4.0-11.0) Red Blood Count 2.37 MIL/MM3 3.23 MIL/MM3 (4.00-5.30) (4.00-5.30) Hemoglobin 7.4 GM/DL 9.2 GM/DL 9.5 GM/DL (11.6-15.3) (11.6-15.3) (11.6-15.3) Hematocrit 22.4 % 27.3 % 29.1 % (35.0-46.0) (35.0-46.0) (35.0-46.0) Mean Corpuscular Volume 94.7 FL 90.0 FL (80.0-100.0) (80.0-100.0) Mean Corpuscular Hemoglobin 31.2 PG 29.5 PG (27.0-34.0) (27.0-34.0) Mean Corpuscular Hemoglobin 33.0 % 32.8 % Concent (32.0-36.0) (32.0-36.0) Red Cell Distribution Width 16.1 % 16.1 % (11.6-17.2) (11.6-17.2) Platelet Count 294 TH/MM3 625 TH/MM3 (150-450) (150-450) Mean Platelet Volume 9.0 FL 7.4 FL (7.0-11.0) (7.0-11.0) Neutrophils (%) (Auto) 80.0 % (16.0-70.0) Lymphocytes (%) (Auto) 10.2 % (9.0-44.0) Monocytes (%) (Auto) 7.6 % (0.0-8.0) Eosinophils (%) (Auto) 2.0 % (0.0-4.0) Basophils (%) (Auto) 0.2 % (0.0-2.0) Neutrophils # (Auto) 11.3 TH/MM3 (1.8-7.7) Lymphocytes # (Auto) 1.4 TH/MM3 (1.0-4.8) Monocytes # (Auto) 1.1 TH/MM3 (0-0.9) Eosinophils # (Auto) 0.3 TH/MM3 (0-0.4) Basophils # (Auto) 0.0 TH/MM3 (0-0.2) CBC Comment AUTO DIFF Differential Total Cells 100 Counted Neutrophils % (Manual) 83 % (16-70) Band Neutrophils % 3 % (0-6) Lymphocytes % 8 % (9-44) Monocytes % 2 % (0-8) Eosinophils % 1 % (0-4) Neutrophils # (Manual) 12.5 TH/MM3 (1.8-7.7) Metamyelocytes 3 % (0-1) Nucleated Red Blood Cells 3 /100 WBC (0-0) Differential Comment FINAL DIFF MANUAL Platelet Estimate NORMAL (NORMAL) Platelet Morphology Comment NORMAL (NORMAL) Polychromasia 2.1 % (0.0-1.9) Sodium Level 141 MEQ/L 135 MEQ/L (136-145) (136-145) Potassium Level 4.1 MEQ/L 4.2 MEQ/L (3.5-5.1) (3.5-5.1) Chloride Level 105 MEQ/L 97 MEQ/L (98-107) (98-107) Carbon Dioxide Level 28.5 MEQ/L 28.4 MEQ/L (21.0-32.0) (21.0-32.0) Anion Gap 8 MEQ/L (5-15) 10 MEQ/L (5-15) Blood Urea Nitrogen 14 MG/DL (7-18) 14 MG/DL (7-18) Creatinine 0.48 MG/DL 0.54 MG/DL (0.50-1.00) (0.50-1.00) Estimat Glomerular Filtration 138 ML/MIN 120 ML/MIN Rate (>89) (>89) Random Glucose 121 MG/DL 123 MG/DL (74-106) (74-106) Calcium Level 8.3 MG/DL 8.6 MG/DL (8.5-10.1) (8.5-10.1) Vancomycin Level Trough 19.9 MCG/ML (5.0-10.0) Urine Color YELLOW (YELLW/STRAW) Urine Turbidity HAZY (CLEAR) Urine pH 7.0 (5.0-8.5) Urine Specific [place] 1.024 (1.002-1.035) Urine Protein TRACE mg/dL (NEG-TRACE) Urine Glucose (UA) NEG mg/dL (NEG) Urine Ketones 10 mg/dL (NEG) Urine Occult Blood NEG (NEG) Urine Nitrite NEG (NEG) Urine Bilirubin NEG (NEG) Urine Urobilinogen LESS THAN 2.0 MG/DL (LESS THAN 2.0) Urine Leukocyte Esterase NEG (NEG) Urine WBC 6 /hpf (0-5) Urine Bacteria OCC /hpf (NONE) Urine Hyaline Casts 2 /lpf (RARE) Urine Mucus FEW /lpf (OCC) Urine Yeast (Budding) FEW (NONE) Microscopic Urinalysis Comment CATH-CULTURE IND Valproic Acid (Depakene) Level 50 MCG/ML (50-100) Test 02/07/17 02/08/17 02/08/17 16:30 05:15 10:20 Sodium Level 136 MEQ/L 137 MEQ/L (136-145) (136-145) White Blood Count 30.4 TH/MM3 (4.0-11.0) Red Blood Count 3.17 MIL/MM3 (4.00-5.30) Hemoglobin 9.5 GM/DL (11.6-15.3) Hematocrit 28.5 % (35.0-46.0) Mean Corpuscular Volume 89.9 FL (80.0-100.0) Mean Corpuscular Hemoglobin 30.0 PG (27.0-34.0) Mean Corpuscular Hemoglobin 33.4 % Concent (32.0-36.0) Red Cell Distribution Width 16.0 % (11.6-17.2) Platelet Count 505 TH/MM3 (150-450) Mean Platelet Volume 8.3 FL (7.0-11.0) Potassium Level 4.9 MEQ/L (3.5-5.1) Chloride Level 101 MEQ/L (98-107) Carbon Dioxide Level 28.7 MEQ/L (21.0-32.0) Anion Gap 7 MEQ/L (5-15) Blood Urea Nitrogen 16 MG/DL (7-18) Creatinine 0.50 MG/DL (0.50-1.00) Estimat Glomerular Filtration 132 ML/MIN Rate (>89) Random Glucose 112 MG/DL (74-106) Calcium Level 8.4 MG/DL (8.5-10.1) . Result Diagram: 02/08/17 0515 02/08/17 1020 Microbiology Microbiology Date/Time Procedure Status Source Growth 02/06/17 04:59 Aerobic Blood Culture - Preliminary Resulted Blood Peripheral NO GROWTH IN 2 DAYS 02/06/17 04:59 Anaerobic Blood Culture - Preliminary Resulted Blood Peripheral NO GROWTH IN 2 DAYS 02/06/17 05:06 Aerobic Blood Culture - Preliminary Resulted Blood Peripheral NO GROWTH IN 2 DAYS 02/06/17 05:06 Anaerobic Blood Culture - Preliminary Resulted Blood Peripheral NO GROWTH IN 2 DAYS 02/06/17 14:38 Urine Culture - Preliminary Resulted Urine Catheterized Urine Yeast Species 02/06/17 18:40 Gram Stain - Final Resulted Sputum Endotracheal 02/06/17 18:40 Sputum Culture - Preliminary Resulted Sputum Endotracheal IMMATURE GROWTH - REINCUBATE . Imaging Last Impressions Chest X-Ray 02/08/17 0000 Signed Impressions: Service Date/Time: Wednesday, February 08, 2017 10:29 - CONCLUSION: Large bore chest tube on the right. Apparent small bore chest tube subcutaneous tissues on the right. There is no pneumothorax. Israel Dominguez MD FACR Brain MRI 02/06/17 0000 Signed Impressions: Service Date/Time: Monday, February 06, 2017 21:31 - CONCLUSION: 1. Postoperative partial left craniectomy for decompression and evacuation of left subdural hematoma. There is some residual subdural hematoma present predominantly posteriorly in the occipital region and posterior fossa. 2. Bilateral temporal lobe contusions with measurements given above. Scattered subarachnoid hemorrhage. 3. Fluid in the temporal bones bilaterally and in the sphenoid sinus. There minimal right to left midline shift. Multiple hemosiderin deposits noted on the susceptibility weighted images especially over both convexities and on the left side laterally. Juan Bajwa MD Head CT 02/04/17 0600 Signed Impressions: Service Date/Time: February 04:39 - CONCLUSION: 1. Study is moderately degraded by streak and motion artifact limiting sensitivity. 2. Interval removal of the previously noted ventricular shunt catheter. 3. The low attenuation region in the right temporal lobe is no significant change. 4. No significant change in the left subdural hematoma. Kalin Tate MD Upper Extremity Ultrasound 02/04/17 0000 Signed Impressions: Service Date/Time: February 07:52 - CONCLUSION: No DVT is identified. Please note that portions of the basilic and cephalic vein are not visualized. Emerson Mariee MD Hand X-Ray 02/02/17 0000 Signed Impressions: Service Date/Time: Thursday, February 02, 2017 14:00 - CONCLUSION: No acute left hand abnormality is identified. Emerson Mariee MD Thoracic Spine CT 01/27/17 170 Signed Impressions: Service Date/Time: Friday, January 27, 2017 17:20 - CONCLUSION: 1. No fracture or subluxation. 2. Minimal subcutaneous emphysema seen within the upper neck likely related to patient's temporal bone fracture. Eb Guerin MD Pelvis X-Ray 01/27/171699 Signed Impressions: Service Date/Time: Friday, January 27, 2017 16:54 - CONCLUSION: 1. Left pubic rami fractures. Otoniel Crain MD Lumbar Spine CT 01/27/171699 Signed Impressions: Service Date/Time: Friday, January 27, 2017 17:20 - CONCLUSION: 1. No fracture or subluxation of the lumbar spine. 2. There are fractures of the right sacrum discussed in detail on CT the abdomen/pelvis. Eb Guerin MD Chest CT 01/27/171699 Signed Impressions: Service Date/Time: Friday, January 27, 2017 17:25 - CONCLUSION: 1. Comminuted fracture involving the right scapula. 2. Minimal posterior atelectatic changes bilaterally. Juan Carlos Jc MD Cervical Spine CT 7/26/17 1700 Signed Impressions: Service Date/Time: Friday, January 27, 2017 17:24 - CONCLUSION: 1. No acute fracture or prevertebral soft tissue swelling. 2. Straightening of the normal cervical lordosis. 3. Cervical spondylosis from C3 through C6. 4. Mild bilateral foraminal narrowing at C3-4, C4-5 and C5-6. Juan Carlos Jc MD Abdomen/Pelvis CT 01/27/17 1700 Signed Impressions: Service Date/Time: Friday, January 27, 2017 17:25 - CONCLUSION: 1. Acute fractures along the right sacrum as well as the left superior and inferior pubic rami. 2. No intra-abdominal trauma identified. Juan Carlos Jc MD Radius/Ulna X-Ray 01/27/17 0000 Signed Impressions: Service Date/Time: Friday, January 27, 2017 16:54 - CONCLUSION: Soft tissue swelling involving the right mid forearm without underlying radial or ulnar fracture. Juan Carlos Jc MD . Procedures * left sided fronto-temporal craniotomy with evacuation of subdural hematoma and placement of ventriculosotmy * Chest tube placement on right Patient/Family Conference Present at Family Conference: , mother, father, daughter. . Family Conference Time (mins): 50 Family Conference Location: Consult Room Issues Discussed: * Palliative care role, purpose, approach * Additional medical, psychosocial, and spiritual history * Patients general health, functional status, and cognitive changes in the months leading up to the current hospitalization * Family understanding of the current medical problems * Family understanding of prognosis * Patients goals of care as best understood from conversations and/or values * Current medical treatment options and benefits/burdens of those options * Likely scenarios comparing ongoing aggressive care with a transition to comfort measures only * Questions answered to the best of my ability * Palliative care contact information provided . Assessment and Plan Disease Oriented Problem List: (1) Traumatic brain injury (2) Acute subdural hematoma (3) Basilar skull fracture (4) Major neurocognitive disorder as late effect of traumatic brain injury without behavioral disturbance (5) Fracture of left pelvis (6) Sacral fracture (7) Right scapula fracture (8) Pneumothorax Symptom Scale: (1) Pain 0-10 Scale: Unable to quantify Comment: Sources of pain might include recent head trauma and surgery; prolonged bedbound status; restraints; zhong catheter; orotracheal tube; vascular access catheters. . (2) Dyspnea 0-10 Scale: Unable to quantify Comment: Tolerating CPAP trials. Will continue to need air-way protection. . (3) Encephalopathy 0-10 Scale: Unable to quantify Comment: Non-interactive. Some spontaneous but non-purposeful movements. . Pertinent Non-Medical Issues Psychosocial: , mother of 4. and children living in [place]. Parents live in [place]. Spiritual: Protestant. Orthodox and spirituality are very important to her. Parents have kaley and many people are praying for her. Legal: No written or verbal advance directives. Ethical issues impacting care: Incapacitated. Unlikely to regain capacity. . Important Contacts * Kenny Terrazas (spouse) [phone] * Shiela (mother) [phone] . Prognosis Though patient is relatively young, she has had a very severe traumatic brain injury. There has been minimal neurologic recovery. Her recent MRI from shows evidence of diffuse axonal injury. Though some recovery is feasible, Dr. Bahena sees chances of meaningful neurological recovery to be poor at this time. Critical care and the trauma team are in agreement. If there is going to be any type of improvement it will likely be very slow and take place over many months. . Code Status: Full Code Plan == Code Status: FULL CODE == Decision Making: Patient is incapacitated and is not expected to regain capacity in the foreseeable future, if at all. As there is no written designation of health care surrogate, so proxy decision making falls to the patient's . == Goals of medical treatment: In my family meeting of 02/08/17, and parents were quite emphatic that in spite of the patient's poor prognosis for meaningful neurologic recovery, the patient would continue to want full aggressive care including tracheostomy and PEG tube placement. Mother , in particular, is emphatic and speaks of the large number of people praying for her recovery. == Pain: Patient currently has orders for scheduled hydrocodone and prn fentanyl. These appear to be adequate. It is hard to distinguish pain from agitation in this patient. Given that we want to prevent over-sedation agree that we should avoid increasing scheduled opiates at this time. No further recommendations at this time. == Dyspnea: Tolerating CPAP trials. No further recommendations at this time. == Encephalopathy: Encephalopathy is quite dense. Given minimal recovery to date, extent of brain injury, and MRI results of 02/06/17, chances of meaningful neurological recovery are looking bleak. == Disposition: Family would like patient to be moved to the [place] area for post-acute care if she survives to discharge. and children are living in the [place] area. == Palliative care will continue to follow to assist with symptom management and to further clarify goals of medical treatment as the clinical course evolves. . Time Spent Total Floor Time (mins): 95 (Total time included chart review; patient exam; case discussion with Molly Moreira and Josef; collaboration with primary nurse; above referenced family conference; and documentation. ) Face to Face Time (mins): 10 >50% Counseling/Coord of Care: Yes Thank you for the opportunity to participate in the care of Ms. Terrazas. . Attestation To help prompt me to consider important information that might be impacting today's encounter and assessment, information from prior notes written by myself or my colleagues may have been "brought forward" into today's note. My signature on this note, however, is an attestation that I personally performed the exam, history, and/or decision-making noted today, and, unless otherwise indicated, the interactions with patient, family, and staff as well as the review of records all occurred today. I also attest that the listed assessment and stated plan reflect my best clinical judgment today based on the combination of historical information, prior notes, and today's exam/ interactions. When time spent is documented, it refers only to time spent today by the signer, or if indicated, combined time spent today by collaborating physician/nurse practitioner. . Maxi Zelaya MD Feb 08, 2017 11:40
[2017-02-08] MEDS ORDERED: AMANTADINE HCL 100 MG CAP NG SCH (12:00)
[2017-02-08] MEDS: FLUCONAZOLE 400 MG PREMIX BAG 200 ML IV SCH (12:43)
[2017-02-08] MEDS: SODIUM CHLORIDE 1 GRAM TAB PO SCH (12:43)
[2017-02-08] MEDS: ACETAMINOPHEN 325 MG TAB PO PRN (15:50)
--- NOTE | 2017-02-08 19:16 | HHI.CCPN ---
Subjective Brief History severe traumatic brain injury. [place] coma scale 3. Large left temporoparietal subdural hematoma, right basal skull fracture through the petrous bone with extrusion of some brain matter on the right, fracture of the right scapula, left superior inferior ramus pubic fracture with minimal displacement and a right sacral fracture. Patient will be taken immediately to the operating room. Patient underwent a left frontotemporal craniectomy with evacuation of subdural hematoma and placement of ventriculostomy Orthopedic consult was obtained and no further operative management will be instituted 24 Hour Review/Hospital Course Patient has been in the ICU overnight intubated and ventilated 01/29/17 Neurologic status is unchanged ICP remains low Pupils are equal about 2 mm and somewhat reactive Patient remains on propofol fentanyl Hypertonic 3% saline at 30 cc/h Keppra No clinical suspicion of seizures 01/30/17 Patient is withdrawing all 4 extremities and localizes and opened her eyes ICP remains low around 8 mmHg Removed from propofol and fentanyl or any form of sedation Sodium 158 and hypertonic saline removed Remains intubated and ventilated and starting to pickup on her own the rate 01/31 open eyes spontaneously-move extremities ICP around 10 mmHg ventriculostomy 110cc/8hrs tolerating CPAP 02/01/17 ICP remains low around 8-10 mmHg Probably ventriculostomy can be safely removed soon as per neurosurgery Patient opening eyes and trying to follow some commands moves both lower extremities and right arm but very little in the left arm Patient is definitely neurologically improving Tolerated CPAP for about 4 hours 02/02/17 Patient neurologically unchanged. Opens eyes to sternal rub and moves all 4 extremities right more than left as described yesterday Does not follow commands Repeat CT scan shows evolving parietal trauma with edema however no new changes EEG consistent with encephalopathy and no seizures Patient is on Keppra and valproic acid. In this case valproic acid has been added by neuropsychology for unrelated reasons ICP remains around 8-9 mmHg and ventriculostomy is a 10 cm Will be probably able to remove either ICP bolt, ventriculostomy or both soon as per neurosurgery 02/04/17 Neurologically slightly improved patient's opening eyes Moves extremities but left side is clearly weaker than the right Right chest drain in position however still apical pneumothorax which is enlarging and we'll place another anterior drain Patient spiked fever to 103 yesterday Triple-lumen removed Venous ultrasound did not reveal any deep venous thrombosis in the arm or the shoulder girdle Patient doing well at this time continue antibiotics 02/05/17 off sedation slowly emerging CXR stable-keep drain on suction 02/06 sodium 141 hgb 11 moving all 4 extremities CXR no PTX NS cleared for lovenox 02/07/17 MRI shows BARBY clinically slowly emerging 02/08/17 patient reached a plateau palliative discussion with family they wish to proceed with peg/trach Objective Vital Signs Date Time Temp Pulse Resp B/P Pulse Ox O2 Delivery O2 Flow Rate FiO2 02/08/17 18:00 102 02/08/17 16:00 40 02/08/17 16:00 102.2 16 120/59 100 Intake and Output 02/07/17 02/07/17 02/08/17 08:00 16:00 00:00 Intake Total 565 ml 896 ml 977 ml Output Total 860 ml 810 ml 1550 ml Balance -295 ml 86 ml -573 ml Result Diagram: 02/08/17 0515 02/08/17 1020 Other Results Microbiology Date/Time Procedure Status Source Growth 02/06/17 14:38 Urine Culture - Final Complete Urine Catheterized Urine Cindy Tropicalis 02/06/17 18:40 Gram Stain - Final Complete Sputum Endotracheal 02/06/17 18:40 Sputum Culture - Final Complete Sputum Endotracheal HEAVY GROWTH NORMAL RESPIRATORY [facility] Imaging Last 24 hours Impressions Chest X-Ray 02/08/17 0000 Signed Impressions: Service Date/Time: Wednesday, February 08, 2017 10:29 - CONCLUSION: Large bore chest tube on the right. Apparent small bore chest tube subcutaneous tissues on the right. There is no pneumothorax. 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
[2017-02-09] VITALS (18 sets, daily range): BP systolic 119–133; BP diastolic 54–60; PULSE 92–114; RESP 14–20; TEMP 99.5–102.9; O2SAT 98–100
[2017-02-09] MEDS: ENOXAPARIN SODIUM 30 MG/0.3 ML SYRINGE SQ SCH ×2 (01:52→14:13)
[2017-02-09] MEDS: CEFEPIME INJ 2,000 MG in SODIUM CHLORIDE 0.9% INJ 100 ML IV SCH ×3 (01:54→17:25)
[2017-02-09 05:08] LABS: HEMATOCRIT 28.9 % (35.0-46.0); MEAN CELL VOLUME 90.5 FL (80.0-100.0); MEAN CORPUSCULAR HEMOGLOBIN 30.4 PG (27.0-34.0); MEAN CORPUSCULAR HGB CONC 33.6 % (32.0-36.0); PLATELET COUNT 632 TH/MM3 (150-450); RED BLOOD COUNT 3.19 MIL/MM3 (4.00-5.30); RED CELL DISTRIBUTION WIDTH 16.5 % (11.6-17.2); REVIEW FLAG FINAL; WHITE BLOOD COUNT 18.1 TH/MM3 (4.0-11.0)
[2017-02-09 05:40] LABS: BICARBONATE 24.7 MEQ/L (21.0-32.0); POTASSIUM 4.1 MEQ/L (3.5-5.1)
[2017-02-09] MEDS: ACETAMINOPHEN 325 MG TAB PO PRN ×2 (05:55→17:36)
[2017-02-09] MEDS: VANCOMYCIN INJ 1,250 MG in SODIUM CHLOR 0.9% 250 ML INJ 250 ML IV SCH (05:55)
[2017-02-09] MEDS: CHLORHEXIDINE 0.12% (ORAL KIT) 15 ML CUP MT SCH ×2 (08:00→20:00)
[2017-02-09] MEDS: BISACODYL 10 MG SUPP RECTAL SCH (09:00)
[2017-02-09] MEDS: BACITRACIN TOP OINT 15 GM TUBE TOPICAL SCH ×2 (09:00→21:00)
[2017-02-09] MEDS: DOCUSATE SODIUM 50 MG/SENNA 8.6 MG TAB PO SCH ×2 (09:00→21:00)
[2017-02-09] MEDS: levETIRAcetam 500 MG/5 ML UDC NG SCH (09:00)
[2017-02-09] MEDS: AMANTADINE HCL SOLN 100 MG/10 ML UDC NG SCH (10:14)
[2017-02-09] MEDS: FAMOTIDINE 20 MG TAB NG SCH ×2 (10:14→21:22)
[2017-02-09] MEDS: VALPROIC ACID SYRUP 250 MG/5 ML UDC PO SCH ×3 (10:14→17:25)
[2017-02-09] MEDS: SODIUM CHLORIDE 1 GRAM TAB PO SCH (10:14)
[2017-02-09] MEDS: SODIUM CHLORIDE 0.9% FLUSH 10 ML FLUSH IV FLUSH SCH ×2 (10:15→20:49)
[2017-02-09] MEDS: SODIUM CHLOR 0.9% 1000 ML INJ 1,000 ML IV SCH (10:15)
[2017-02-09] MEDS: FLUCONAZOLE 400 MG PREMIX BAG 200 ML IV SCH (10:15)
[2017-02-09] MEDS ORDERED: PHARMACY ORDERED LAB ONE (13:45)
--- NOTE | 2017-02-09 14:11 | HHI.IDPN ---
Subjective Subjective Remarks Patient is a 46-year-old female admitted as a trauma alert. She was apparently working in her house in the garage ceiling and she felt improved some of the rafters, and landed on her head. She was found to have significant traumatic brain injury, and also had some other fracture including scapular fracture and in the pelvic region. The orthopedic injuries were all being treated conservatively. She had significant eye murmur out to on her imaging study of the brain, and underwent emergent surgery on her brain for evacuation of the significant epidural hematoma, placement of a bolt, as well as a ventriculostomy. She has remained on the vent. She was on Unasyn since January 29. Starting February 01 she started having fevers, and no cultures were ordered. CSF culture is showing gram-variable segun on the Gram stain of the broth but it did not grow on culture media. She has been started on cefepime and vancomycin. Patient also has a chest tube for pneumothorax. Her chest x-ray has shown stable findings. Urinalysis unremarkable. She has a central line in the right IJ. Notes reviewed Still with intermittent fevers WBC better Nothing new on C/S [address] Sanchez in place No central line Antibiotics Vancomycin Cefepime Diflucan Lines PIV Past Medical History None Allergies: Coded Allergies: No Known Allergies (Unverified , 01/31/17) per Objective . Vital Signs Date Time Temp Pulse Resp B/P Pulse Ox O2 Delivery O2 Flow Rate FiO2 02/09/17 11:48 100 40 02/09/17 10:00 96 02/09/17 08:00 100.1 92 15 125/57 100 02/09/17 08:00 92 02/09/17 08:00 40 02/09/17 07:48 40 02/09/17 07:41 100 40 02/09/17 06:00 108 02/09/17 04:18 100 40 02/09/17 04:00 104 02/09/17 04:00 40 02/09/17 04:00 102.9 110 20 125/57 100 02/09/17 02:00 104 02/09/17 00:59 100 40 02/09/17 00:00 99.6 110 20 125/57 100 02/09/17 00:00 40 02/09/17 00:00 100 02/08/17 22:00 102 02/08/17 21:00 99 40 02/08/17 20:00 99.3 106 16 148/63 98 02/08/17 20:00 106 02/08/17 18:00 102 02/08/17 16:00 40 02/08/17 16:00 108 02/08/17 16:00 102.2 108 16 120/59 100 02/08/17 15:44 100 40 02/08/17 02/08/17 02/09/17 14:59 22:59 06:59 Intake Total 1095 ml 1104 ml 600 ml Output Total 410 ml 0 ml 0 ml Balance 685 ml 1104 ml 600 ml Intake IV Total 923 ml 590 ml 402 ml Tube Feeding 52 ml 394 ml 138 ml Tube Irrigant 120 ml Other 120 ml 60 ml Output Urine Total 400 ml Chest Tube Drainage Total 10 ml 0 ml 0 ml # Voids 2 3 # Bowel Movements 1 1 3 . Laboratory Tests Test 02/08/17 02/09/17 05:15 04:04 White Blood Count 30.4 TH/MM3 18.1 TH/MM3 Red Blood Count 3.17 MIL/MM3 3.19 MIL/MM3 Hemoglobin 9.5 GM/DL 9.7 GM/DL Hematocrit 28.5 % 28.9 % Mean Corpuscular Volume 89.9 FL 90.5 FL Mean Corpuscular Hemoglobin 30.0 PG 30.4 PG Mean Corpuscular Hemoglobin 33.4 % 33.6 % Concent Red Cell Distribution Width 16.0 % 16.5 % Platelet Count 505 TH/MM3 632 TH/MM3 Mean Platelet Volume 8.3 FL 7.6 FL Laboratory Tests Test 02/07/17 02/08/17 02/09/17 16:30 10:20 04:04 Sodium Level 136 MEQ/L 137 MEQ/L 139 MEQ/L Potassium Level 4.9 MEQ/L 4.1 MEQ/L Chloride Level 101 MEQ/L 103 MEQ/L Carbon Dioxide Level 28.7 MEQ/L 24.7 MEQ/L Anion Gap 7 MEQ/L 11 MEQ/L Blood Urea Nitrogen 16 MG/DL 19 MG/DL Creatinine 0.50 MG/DL 0.70 MG/DL Estimat Glomerular Filtration 132 ML/MIN 89 ML/MIN Rate Random Glucose 112 MG/DL 101 MG/DL Calcium Level 8.4 MG/DL 8.2 MG/DL Microbiology Date/Time Procedure Status Source Growth 02/06/17 14:38 Urine Culture - Final Complete Urine Catheterized Urine Cindy Tropicalis 02/06/17 18:40 Gram Stain - Final Complete Sputum Endotracheal 02/06/17 18:40 Sputum Culture - Final Complete Sputum Endotracheal HEAVY GROWTH NORMAL RESPIRATORY [facility] Imaging Chest X-Ray 02/05/17 0600 Signed Impressions: Service Date/Time: Sunday, February 05, 2017 05:29 - CONCLUSION: 1. There is no evidence of pneumothorax. Luis Angel Bullock MD Head CT 02/04/17 0600 Signed Impressions: Service Date/Time: February 04:39 - CONCLUSION: 1. Study is moderately degraded by streak and motion artifact limiting sensitivity. 2. Interval removal of the previously noted ventricular shunt catheter. 3. The low attenuation region in the right temporal lobe is no significant change. 4. No significant change in the left subdural hematoma. Kalin Tate MD Upper Extremity Ultrasound 02/04/17 0000 Signed Impressions: Service Date/Time: February 07:52 - CONCLUSION: No DVT is identified. Please note that portions of the basilic and cephalic vein are not visualized. Emerson Mariee MD Hand X-Ray 02/02/17 0000 Signed Impressions: Service Date/Time: Thursday, February 02, 2017 14:00 - CONCLUSION: No acute left hand abnormality is identified. Emerson Mariee MD Thoracic Spine CT 01/27/17 1700 Signed Impressions: Service Date/Time: Friday, January 27, 2017 17:20 - CONCLUSION: 1. No fracture or subluxation. 2. Minimal subcutaneous emphysema seen within the upper neck likely related to patient's temporal bone fracture. Eb Guerin MD Pelvis X-Ray 01/27/17 1700 Signed Impressions: Service Date/Time: Friday, January 27, 2017 16:54 - CONCLUSION: 1. Left pubic rami fractures. Otoniel Crain MD Lumbar Spine CT 01/27/17 1700 Signed Impressions: Service Date/Time: Wednesday, January 27, 2017 17:20 - CONCLUSION: 1. No fracture or subluxation of the lumbar spine. 2. There are fractures of the right sacrum discussed in detail on CT the abdomen/pelvis. Eb Guerin MD Chest CT 01/27/17 1700 Signed Impressions: Service Date/Time: Friday, January 27, 2017 17:25 - CONCLUSION: 1. Comminuted fracture involving the right scapula. 2. Minimal posterior atelectatic changes bilaterally. Juan Carlos Jc MD Cervical Spine CT 01/27/17 1700 Signed Impressions: Service Date/Time: Friday, January 27, 2017 17:24 - CONCLUSION: 1. No acute fracture or prevertebral soft tissue swelling. 2. Straightening of the normal cervical lordosis. 3. Cervical spondylosis from C3 through C6. 4. Mild bilateral foraminal narrowing at C3-4, C4-5 and C5-6. Juan Carlos Jc MD Abdomen/Pelvis CT 01/27/17 1700 Signed Impressions: Service Date/Time: Friday, January 27, 2017 17:25 - CONCLUSION: 1. Acute fractures along the right sacrum as well as the left superior and inferior pubic rami. 2. No intra-abdominal trauma identified. Juan Carlos Jc MD Radius/Ulna X-Ray 01/27/17 0000 Signed Impressions: Service Date/Time: Friday, January 27, 2017 16:54 - CONCLUSION: Soft tissue swelling involving the right mid forearm without underlying radial or ulnar fracture. Juan Carlos Jc MD Physical Exam GENERAL: Comfortable on vent, not on sedation, no interaction SKIN: Warm and dry. No generalized rash HEAD: Incision L side of head is dry, no redness or drainage. Previous tubes site in scalp dry EYES: [place] conjunctiva. No petechia or hemorrhage. Pupils equal, round and reactive to light. No scleral icterus. No injection or drainage. EARS, NOSE AND THROAT: Nose without bleeding or purulent nasal discharge. She is orally intubated. NECK: Trachea midline. Supple and not tender, no meningeal signs. Line site with no evidence of infection CARDIOVASCULAR: Regular rate and rhythm. No murmurs, rubs or gallops heard RESPIRATORY: 2 CT sites ok. Decreased breath sounds at the bases ABDOMEN: Soft, nondistended, NO reaction to deep palpation. Bowel sounds present and normoactive. No organomegaly. EXTREMITIES: No clubbing, cyanosis, or joint effusion. Mild pedal edema. Hands edematous. Well perfused and warm. NEUROLOGICAL: No interaction PSYCHIATRIC: Unable to assess LINE: No evidence of infection : Sanchez in place urine looks ok Assessment & Plan Remarks IMPRESSION New fevers, possible sepsis, source? - Continues to have fevers - ?VAP - has line - ?CSF - has Acinetobacter and Bacillus; repeat negative; ?significance, ? colonization TBI, with epidural hematoma S/P OR, has bolt and EVD Respiratory failure Leukocytosis, better today - CXR negative - nothing new on C/S RECOMMENDATION Follow C/S Follow CBC Continue Vancomycin and Cefepime Continue Diflucan Monitor temp Monitor progress Trach being discussed Ai Montano MD Feb 09, 2017 14:10
--- NOTE | 2017-02-09 15:25 | HHI.CCPN ---
Subjective Brief History severe traumatic brain injury. [place] coma scale 3. Large left temporoparietal subdural hematoma, right basal skull fracture through the petrous bone with extrusion of some brain matter on the right, fracture of the right scapula, left superior inferior ramus pubic fracture with minimal displacement and a right sacral fracture. Patient will be taken immediately to the operating room. Patient underwent a left frontotemporal craniectomy with evacuation of subdural hematoma and placement of ventriculostomy Orthopedic consult was obtained and no further operative management will be instituted 24 Hour Review/Hospital Course Patient has been in the ICU overnight intubated and ventilated 01/29/17 Neurologic status is unchanged ICP remains low Pupils are equal about 2 mm and somewhat reactive Patient remains on propofol fentanyl Hypertonic 3% saline at 30 cc/h Keppra No clinical suspicion of seizures 01/30/17 Patient is withdrawing all 4 extremities and localizes and opened her eyes ICP remains low around 8 mmHg Removed from propofol and fentanyl or any form of sedation Sodium 158 and hypertonic saline removed Remains intubated and ventilated and starting to pickup on her own the rate 01/31 open eyes spontaneously-move extremities ICP around 10 mmHg ventriculostomy 110cc/8hrs tolerating CPAP 02/01/17 ICP remains low around 8-10 mmHg Probably ventriculostomy can be safely removed soon as per neurosurgery Patient opening eyes and trying to follow some commands moves both lower extremities and right arm but very little in the left arm Patient is definitely neurologically improving Tolerated CPAP for about 4 hours 02/02/17 Patient neurologically unchanged. Opens eyes to sternal rub and moves all 4 extremities right more than left as described yesterday Does not follow commands Repeat CT scan shows evolving parietal trauma with edema however no new changes EEG consistent with encephalopathy and no seizures Patient is on Keppra and valproic acid. In this case valproic acid has been added by neuropsychology for unrelated reasons ICP remains around 8-9 mmHg and ventriculostomy is a 10 cm Will be probably able to remove either ICP bolt, ventriculostomy or both soon as per neurosurgery 02/04/17 Neurologically slightly improved patient's opening eyes Moves extremities but left side is clearly weaker than the right Right chest drain in position however still apical pneumothorax which is enlarging and we'll place another anterior drain Patient spiked fever to 103 yesterday Triple-lumen removed Venous ultrasound did not reveal any deep venous thrombosis in the arm or the shoulder girdle Patient doing well at this time continue antibiotics 02/05/17 off sedation slowly emerging CXR stable-keep drain on suction 02/06 sodium 141 hgb 11 moving all 4 extremities CXR no PTX NS cleared for lovenox 02/07/17 MRI shows BARBY clinically slowly emerging 02/08/17 patient reached a plateau palliative discussion with family they wish to proceed with peg/trach 02/09/17 febrile 102.9 wbc 18 CSF /urine cultures noted ID managing tolearing CPAP-but not extubatable due to mental status Objective Vital Signs Date Time Temp Pulse Resp B/P Pulse Ox O2 Delivery O2 Flow Rate FiO2 02/09/17 14:00 101 02/09/17 12:00 99.8 16 133/60 100 02/09/17 12:00 40 Intake and Output 02/08/17 02/08/17 02/09/17 08:00 16:00 00:00 Intake Total 430 ml 1095 ml 1104 ml Output Total 550 ml 410 ml 0 ml Balance -120 ml 685 ml 1104 ml Result Diagram: 02/09/17 0404 02/09/17 0404 Other Results Microbiology Date/Time Procedure Status Source Growth 02/06/17 18:40 Gram Stain - Final Complete Sputum Endotracheal 02/06/17 18:40 Sputum Culture - Final Complete Sputum Endotracheal HEAVY GROWTH NORMAL RESPIRATORY [facility]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
--- NOTE | 2017-02-09 15:37 | HHI.NSPN ---
(Marques MorenoCash CHRIS) History Chief Complaint: Unable to obtain due to clinical condition. (Marques Moreno) Interval History 01/27: Patient is a middle-aged female who according to her family fell through a garage ceiling landing on the floor one-story down. Positive loss of consciousness. Patient was reportedly unresponsive immediately after the event. No seizure activity reported. She was GCS 3-4 at the scene and brought to [facility] emergency room as a trauma alert per EMS. She was intubated in the emergency room. She was noted to have a fixed dilated left pupil and pinpoint right pupil in the emergency room on initial evaluation. The undersigned reviewed the patient's CT scan images shortly after completion while the patient was in the CT scanning suite. Images revealed a large left hemispheric acute subdural hematoma with approximate 16 mm midline shift, significant effacement of the left ventricle and cisterns. Patient was taken emergently to the operating room from the CT scanning suite. 01/28: The patient is intubated and mechanically ventilated with propofol & fentanyl for sedation. She is on norepinephrine for blood pressure support which Nursing states she is titrating down. Nursing also reported that the patient did squeeze with her hands this morning. The patient was transfused this morning for a haemoglobin of 7.4. 01/29: The patient remains intubated and mechanically ventilated. The propofol & fentanyl drips have been off since 929 this morning. She is no longer on any vasopressors. Saline 3% is infusing. Nursing states she is withdrawing but has not had any eye opening. ICP has been running 4 to 5 on the ventriculostomy per Nursing and that the bolt pressure is not being used since it was reportedly not in proper position. Nursing also reports excessive drainage from the ventriculostomy. 01/30: Patient intubated on minimal sedation. Not opening eyes to verbal or tactile stimulation 01/31: Patient remains intubated on minimal sedation. At this point she is opening her eyes and tracking to verbal stimulation. 02/01: The patient continues to be intubated and mechanically ventilated. The fentanyl was discontinued this morning.Nursing reported that the left pupil appeared slightly larger this morning and that the ventriculostomy ICP has been ranging between 5 and 10. 02/02: The patient is still intubated and mechanically ventilated. She remains off any sedation. Nursing reported that she did follow commands to move the right hand once yesterday. When an EEG was done yesterday the tech reported to Nursing that there was fresh blood to the right side of the head. 02/03: The patient remains intubated and mechanically ventilated. She is noted to be moving the right side extremities spontaneously. Nursing reports that she also was withdrawing on the left to noxious stimuli. The [employer] is preparing to replace the chest tube. The patient did spike a temperature to 103.1 yesterday afternoon. 02/04: The patient is still intubated and mechanically ventilated. She is moving the right lower extremity spontaneously. Nursing reports no response to stimuli with the left upper extremity, otherwise she is withdrawing still. The ventriculostomy was withdrawn yesterday due to Gram variable rods noted on the Gram stain off the CSF specimen sent for culture when she spiked her temperature on . 8/5: intubated, sedation off. not opening eyes or following command. withdraws x 4. 8/6: MRI Brain completed yesterday, otherwise no changes to neuro checks overnight 02/08: When seen this morning the patient was intubated and mechanically ventilated. She was not on any drips for sedation. Respiratory was present in the room and was going to place her on CPAP. 02/09: The patient remains intubated and mechanically ventilated when seen this afternoon. Nursing reports that the patient failed a CPAP trial and went apneic. The plan is to do a trach tomorrow according to Nursing. (Marques Moreno) System Review Comments Unable to obtain due to clinical condition. (Marques Moreno) Exam Results Vital Signs Date Time Temp Pulse Resp B/P Pulse Ox O2 Delivery O2 Flow Rate FiO2 02/09/17 14:00 101 02/09/17 12:00 99.8 16 133/60 100 02/09/17 12:00 40 Intake and Output 02/08/17 02/08/17 02/09/17 08:00 16:00 00:00 Intake Total 430 ml 1095 ml 1104 ml Output Total 550 ml 410 ml 0 ml Balance -120 ml 685 ml 1104 ml (Marques Moreno) Physical Examination GENERAL: The patient is intubated and mechanically ventilated w/o any sedation. SKIN: Skin warm & dry. Multiple abrasions & ecchymosis to extremities healing w/ o complication. No rashes or other lesions noted. HEENT: Well approximated left-sided craniotomy, pressure monitoring bolt & ventriculostomy insertions sites, w/o any evident drainage, erythema or streaking. Flap full but soft. PERRLA. Orally intubated. OGT. NECK: No JVD, trachea midline. CARDIOVASCULAR: S1S2 w/regular but rapid rate w/o M/G/R, radial & pedal pulses 2 + bilaterally, cap refill < 2 sec, no pedal edema. Monitor is sinus tachycardia w/o any ectopy noted. RESPIRATORY: CTAB w/o W/R/R, equal excursion, nonlaboured, intubated and mechanically ventilated. Right-sided tube thoracotomy. GASTROINTESTINAL: Abdomen soft, bowel sounds not appreciated, OGT w/enteral feeds. MUSCULOSKELETAL: Scattered abrasions & ecchymosis. No evident deformities or clubbing. NEUROLOGICAL: GCS 6T (E1 V1T M4). No eye opening to voice & noxious stimuli. PERRLA 3mm brisk. Does not follow any commands, no spontaneous movement noted, withdraws to localised noxious stimulus RLE slightly greater than LLE w/trace LUE but none to RUE, response to central noxious stimulus to all extremities. Unable to assess sensation. (Marques Moreno) Lab, Micro, Other Results Allergies Coded Allergies Type Severity Reaction Last Updated Verified No Known Allergies 01/31/17 No Recent Impressions Chest X-Ray 02/08/17 0000 Signed Impressions: Service Date/Time: Wednesday, February 08, 2017 10:29 - CONCLUSION: Large bore chest tube on the right. Apparent small bore chest tube subcutaneous tissues on the right. There is no pneumothorax. Israel Dominguez MD FACR Chest X-Ray 02/07/17 0600 Signed Impressions: Service Date/Time: Tuesday, February 07, 2017 05:36 - CONCLUSION: 1. There is no evidence of pneumothorax. Luis Angel Bullock MD 178/8/178/8/17 06:00 18:00 06:00 18:00 06:00 18:00 Intake Total 1414 ml 896 ml 1407 ml 1095 ml 1704 ml 759 ml Output Total 1715 ml 810 ml 2100 ml 410 ml 0 ml 0 ml Balance -301 ml 86 ml -693 ml 685 ml 1704 ml 759 ml Intake IV Total 486 ml 453 ml 838 ml 923 ml 992 ml 639 ml Tube Feeding 708 ml 443 ml 399 ml 52 ml 532 ml Tube Irrigant 120 ml 120 ml Other 220 ml 170 ml 180 ml Output Urine Total 1675 ml 800 ml 2100 ml 400 ml Chest Tube Drainage Total 40 ml 10 ml 0 ml 10 ml 0 ml 0 ml # Voids 5 4 # Bowel Movements 0 1 4 4 Laboratory Tests Test 02/07/17 02/07/17 02/08/17 02/08/17 14:04 16:30 05:15 10:20 White Blood Count 27.2 TH/MM3 30.4 TH/MM3 Red Blood Count 3.23 MIL/MM3 3.17 MIL/MM3 Hemoglobin 9.5 GM/DL 9.5 GM/DL Hematocrit 29.1 % 28.5 % Mean Corpuscular Volume 90.0 FL 89.9 FL Mean Corpuscular Hemoglobin 29.5 PG 30.0 PG Mean Corpuscular Hemoglobin 32.8 % 33.4 % Concent Red Cell Distribution Width 16.1 % 16.0 % Platelet Count 625 TH/MM3 505 TH/MM3 Mean Platelet Volume 7.4 FL 8.3 FL Sodium Level 135 MEQ/L 136 MEQ/L 137 MEQ/L Potassium Level 4.2 MEQ/L 4.9 MEQ/L Chloride Level 97 MEQ/L 101 MEQ/L Carbon Dioxide Level 28.4 MEQ/L 28.7 MEQ/L Anion Gap 10 MEQ/L 7 MEQ/L Blood Urea Nitrogen 14 MG/DL 16 MG/DL Creatinine 0.54 MG/DL 0.50 MG/DL Estimat Glomerular Filtration 120 ML/MIN 132 ML/MIN Rate Random Glucose 123 MG/DL 112 MG/DL Calcium Level 8.6 MG/DL 8.4 MG/DL Valproic Acid (Depakene) Level 50 MCG/ML Test 02/08/17 02/09/17 13:45 04:04 Vancomycin Level Trough 17.7 MCG/ML White Blood Count 18.1 TH/MM3 Red Blood Count 3.19 MIL/MM3 Hemoglobin 9.7 GM/DL Hematocrit 28.9 % Mean Corpuscular Volume 90.5 FL Mean Corpuscular Hemoglobin 30.4 PG Mean Corpuscular Hemoglobin 33.6 % Concent Red Cell Distribution Width 16.5 % Platelet Count 632 TH/MM3 Mean Platelet Volume 7.6 FL Sodium Level 139 MEQ/L Potassium Level 4.1 MEQ/L Chloride Level 103 MEQ/L Carbon Dioxide Level 24.7 MEQ/L Anion Gap 11 MEQ/L Blood Urea Nitrogen 19 MG/DL Creatinine 0.70 MG/DL Estimat Glomerular Filtration 89 ML/MIN Rate Random Glucose 101 MG/DL Calcium Level 8.2 MG/DL Vital Signs Date Time Temp Pulse Resp B/P Pulse Ox O2 Delivery O2 Flow Rate FiO2 02/09/17 14:00 101 02/09/17 12:00 99.8 102 16 133/60 100 02/09/17 12:00 40 02/09/17 12:00 102 02/09/17 11:48 100 40 02/09/17 10:00 96 02/09/17 08:00 100.1 92 15 125/57 100 02/09/17 08:00 92 02/09/17 08:00 40 02/09/17 07:48 40 02/09/17 07:41 100 40 02/09/17 06:00 108 02/09/17 04:18 100 40 02/09/17 04:00 104 02/09/17 04:00 40 02/09/17 04:00 102.9 110 20 125/57 100 02/09/17 02:00 104 02/09/17 00:59 100 40 02/09/17 00:00 99.6 110 20 125/57 100 02/09/17 00:00 40 02/09/17 00:00 100 02/08/17 22:00 102 02/08/17 21:00 99 40 02/08/17 20:00 99.3 106 16 148/63 98 02/08/17 20:00 106 02/08/17 18:00 102 02/08/17 16:00 40 02/08/17 16:00 108 02/08/17 16:00 102.2 108 16 120/59 100 02/08/17 15:44 100 40 02/08/17 14:00 107 02/08/17 12:30 40 02/08/17 12:00 104 02/08/17 12:00 100.0 104 26 109/55 100 02/08/17 11:18 100 40 02/08/17 10:00 101 02/08/17 08:59 40 02/08/17 08:57 100 40 02/08/17 08:54 100 40 02/08/17 08:00 40 02/08/17 08:00 112 02/08/17 08:00 99.3 112 22 120/55 100 02/08/17 06:00 108 02/08/17 04:37 100 40 02/08/17 04:00 99.0 116 20 130/60 100 02/08/17 04:00 40 02/08/17 04:00 116 02/08/17 02:00 116 02/08/17 01:11 100 40 02/08/17 00:00 99.3 108 18 131/60 100 02/08/17 00:00 108 02/08/17 00:00 40 02/07/17 22:00 110 02/07/17 20:28 100 40 02/07/17 20:00 40 02/07/17 20:00 99.3 106 22 127/61 100 02/07/17 20:00 106 02/07/17 18:00 112 02/07/17 16:23 96 40 02/07/17 16:00 99.8 109 26 120/83 100 02/07/17 16:00 120 02/07/17 16:00 40 02/07/17 14:00 118 02/07/17 12:13 100 40 02/07/17 12:00 113 02/07/17 12:00 102.3 118 22 131/82 96 02/07/17 12:00 40 02/07/17 10:00 104 02/07/17 08:00 100.5 102 20 120/84 100 02/07/17 08:00 40 02/07/17 08:00 102 02/07/17 07:36 100 40 02/07/17 06:00 111 02/07/17 04:00 108 02/07/17 04:00 40 02/07/17 04:00 99.6 108 14 133/65 99 02/07/17 03:57 100 40 02/07/17 02:00 115 02/07/17 01:49 100 40 02/07/17 00:00 40 02/07/17 00:00 100.3 114 14 129/60 99 02/07/17 00:00 114 02/06/17 22:00 120 02/06/17 21:00 100 100 02/06/17 20:31 100 40 02/06/17 20:00 40 02/06/17 20:00 100.9 106 14 125/58 100 02/06/17 20:00 106 02/06/17 18:00 109 02/06/17 16:00 100 02/06/17 16:00 99.5 100 14 115/57 100 02/06/17 16:00 40 (Marques Moreno) Medical Decision Making Impression and Plan Impression: 1. Severe acute left hemisphere subdural hematoma with severe midline shift and mass effect. 2. Right temporal bone fracture-nondisplaced Leukocytosis, interval improvement (30.4=>18.1) Anaemia, stable (9.5=>9.7) Thrombocytosis, interval increase (505=>632) Thrombocytopenia, resolved Sodium 139 Hypokalemia, resolved eGFR WNL Hypophosphatemia,resolved CT brain demonstrates no significant change in the left SDH or the right temporal lobe low attenuation region compared to . MRI brain demonstrates some residual left SDH to occipital region & posterior fossa, bilateral temporal lobe contusions & scattered SAH, with a minimal right to left shift. There are multiple haemosiderin deposits noted on susceptibility weighted images over both convexities and the left lateral. T max 102.9 at noon yesterday. Patient with stable put poor neurological response. POD #13 () s/p: 1. Left decompressive frontotemporoparietal craniotomy for evacuation of acute subdural hematoma. 2. Left frontal ventriculostomy catheter placement 3. Left frontal twist drill for intracranial pressure monitor placement Plan: Primary management per [employer]/Trauma. Frequent neuro checks. Stat CT brain for worsening neuro status. Daily sodium level, maintain sodium in 145-153 range. Continuing ventilatory support and full sedation. Seizure prophylaxis. Ulcer prophylaxis. Continue non chemical DVT prophylaxis. Okay for Lovenox. CT brain in AM. (Marques Moreno) Attending Statement I have personally seen and examined the patient on the date of this note. Pertinent documentation and study results have been reviewed by the undersigned. I have personally developed the treatment plan and performed medical decision making. Agree with findings, exam, and treatment plan as noted above. On my examination today, the patient remains mostly unresponsive. Mild eyelid, facial movement to deep pain and sternal rub but does not track with her eyes and no eye opening. Minimal response upper extremities to deep pain No improvement in neurologic exam over the past few days Follow-up CT scan head 02/10/17. (Nic Bahena MD) Marques Moreno Feb 09, 2017 15:37 Nic Bahena MD Feb 09, 2017 21:24
--- NOTE | 2017-02-09 19:53 | HHI.HCPN ---
Reason for visit a. To assist with evaluation and management of symptoms including: pain; dyspnea; encephalopathy b. To assist medical decision maker(s) with: better understanding of current medical conditions; weighing benefits/burdens of medical treatment options; making medical treatment decisions. . Subjective/Interval History No significant change overnight. No evidence of neurological improvement noted by family. Failed a C Pap trial today and became apneic. Tracheostomy planned next 24-48 hours. Tmax 102.7; 123-133/58-60; Heart rate 92-114; respiratory rate 15-19; pulse oximetry 100% on FiO2 of 40% Urine output 2900 cc. bowels are moving. WBC decline from 30.4 down to 18.1. Hemoglobin stable at 9.7. Platelet count up to 632. Renal function stable. No new culture resultsurine of 02/06/17 positive for Cnidy tropicalis No new imaging. . Family/friend interactions Family members including , daughter, and one of the sons was at bedside this afternoon. They feel, if anything, the patient is less responsive today. is being asked by relatives, "what stage is she in?" I am not certain what this refers to. Will try to find out. . Advance Directives Living Will: Never completed Health Care Surrogate: Never completed Durable Power of Disability Examiner: Never completed Advance Directive Specifics Date completed: No advance directive completed. . Health Care Surrogate(s): No advance directive completed. . Documented care wishes: No written documentation of health care preferences / goals. . Objective Vital Signs Date Time Temp Pulse Resp B/P Pulse Ox O2 Delivery O2 Flow Rate FiO2 02/09/17 18:00 112 02/09/17 16:03 100 40 02/09/17 16:00 102.7 114 19 123/58 100 02/09/17 16:00 114 02/09/17 16:00 40 02/09/17 14:00 101 02/09/17 12:00 99.8 102 16 133/60 100 02/09/17 12:00 40 02/09/17 12:00 102 02/09/17 11:48 100 40 02/09/17 10:00 96 02/09/17 08:00 100.1 92 15 125/57 100 02/09/17 08:00 92 02/09/17 08:00 40 02/09/17 07:48 40 02/09/17 07:41 100 40 02/09/17 06:00 108 02/09/17 04:18 100 40 02/09/17 04:00 104 02/09/17 04:00 40 02/09/17 04:00 102.9 110 20 125/57 100 02/09/17 02:00 104 02/09/17 00:59 100 40 02/09/17 00:00 99.6 110 20 125/57 100 02/09/17 00:00 40 02/09/17 00:00 100 02/08/17 22:00 102 02/08/17 21:00 99 40 02/08/17 20:00 99.3 106 16 148/63 98 02/08/17 20:00 106 Intake & Output 02/09/17 02/09/17 07:00 19:00 Intake Total 1704 ml 759 ml Output Total 0 ml 0 ml Balance 1704 ml 759 ml Intake IV Total 992 ml 639 ml Tube Feeding 532 ml Tube Irrigant 120 ml Other 180 ml Chest Tube Drainage Total 0 ml 0 ml # Voids 5 4 # Bowel Movements 4 4 . Physical Exam CONSTITUTIONAL/GENERAL: This is an adequately nourished patient, intubated, minimally responsive in an SICU bed. TUBES/LINES/DRAINS: Chest tube (right sided) ; peripheral iv; zhong catheter; orotracheal tube; orogastric tube; soft wrist restraints; anti-contracture boots SKIN: No jaundice, rashes, or lesions. Ecchymoses on upper extremities. No wounds seen anteriorly. Skin temperature appropriate. Not diaphoretic. HEAD: Healing left craniotomy wound (no bone flap) EYES: Pupils equal and round. Not tracking. No scleral icterus. No injection or drainage. Fundi not examined. ENT: Unable to assess hearing -- does not respond to voice. Nose without bleeding or purulent drainage. Throat without visible erythema, exudates, masses , or lesions though difficult to assess due to intubations. NECK: Trachea midline. N CARDIOVASCULAR: Regular rate and rhythm without murmurs, gallops, or rubs. No JVD. Peripheral pulses symmetric. RESPIRATORY/CHEST: Symmetric, unlabored respirations. Clear to auscultation. Breath sounds equal bilaterally. No wheezes, rales, or rhonchi. GASTROINTESTINAL: Abdomen soft, non-tender, nondistended. No hepato-splenomegaly , or palpable masses. No guarding. Bowel sounds present. GENITOURINARY: Without palpable bladder distension. Zhong catheter in place. MUSCULOSKELETAL: Extremities without clubbing, cyanosis, or edema. No mottling. LYMPHATICS: Not examined. NEUROLOGICAL: No spontaneous movements during my visit.. Withdraws all 4 extremities to noxious stimuli. Does not awaken to voice or exam. Unable to follow commands. PSYCHIATRIC: Unable to assess due to level of responsiveness. . Diagnostic Tests Laboratory Laboratory Tests Test 02/07/17 02/07/17 02/08/17 02/08/17 14:04 16:30 05:15 10:20 White Blood Count 27.2 TH/MM3 30.4 TH/MM3 (4.0-11.0) (4.0-11.0) Red Blood Count 3.23 MIL/MM3 3.17 MIL/MM3 (4.00-5.30) (4.00-5.30) Hemoglobin 9.5 GM/DL 9.5 GM/DL (11.6-15.3) (11.6-15.3) Hematocrit 29.1 % 28.5 % (35.0-46.0) (35.0-46.0) Mean Corpuscular Volume 90.0 FL 89.9 FL (80.0-100.0) (80.0-100.0) Mean Corpuscular Hemoglobin 29.5 PG 30.0 PG (27.0-34.0) (27.0-34.0) Mean Corpuscular Hemoglobin 32.8 % 33.4 % Concent (32.0-36.0) (32.0-36.0) Red Cell Distribution Width 16.1 % 16.0 % (11.6-17.2) (11.6-17.2) Platelet Count 625 TH/MM3 505 TH/MM3 (150-450) (150-450) Mean Platelet Volume 7.4 FL 8.3 FL (7.0-11.0) (7.0-11.0) Sodium Level 135 MEQ/L 136 MEQ/L 137 MEQ/L (136-145) (136-145) (136-145) Potassium Level 4.2 MEQ/L 4.9 MEQ/L (3.5-5.1) (3.5-5.1) Chloride Level 97 MEQ/L 101 MEQ/L (98-107) (98-107) Carbon Dioxide Level 28.4 MEQ/L 28.7 MEQ/L (21.0-32.0) (21.0-32.0) Anion Gap 10 MEQ/L (5-15) 7 MEQ/L (5-15) Blood Urea Nitrogen 14 MG/DL (7-18) 16 MG/DL (7-18) Creatinine 0.54 MG/DL 0.50 MG/DL (0.50-1.00) (0.50-1.00) Estimat Glomerular Filtration 120 ML/MIN 132 ML/MIN Rate (>89) (>89) Random Glucose 123 MG/DL 112 MG/DL (74-106) (74-106) Calcium Level 8.6 MG/DL 8.4 MG/DL (8.5-10.1) (8.5-10.1) Valproic Acid (Depakene) Level 50 MCG/ML (50-100) Test 02/08/17 02/09/17 02/09/17 13:45 04:04 18:42 Vancomycin Level Trough 17.7 MCG/ML 21.3 MCG/ML (5.0-10.0) (5.0-10.0) White Blood Count 18.1 TH/MM3 (4.0-11.0) Red Blood Count 3.19 MIL/MM3 (4.00-5.30) Hemoglobin 9.7 GM/DL (11.6-15.3) Hematocrit 28.9 % (35.0-46.0) Mean Corpuscular Volume 90.5 FL (80.0-100.0) Mean Corpuscular Hemoglobin 30.4 PG (27.0-34.0) Mean Corpuscular Hemoglobin 33.6 % Concent (32.0-36.0) Red Cell Distribution Width 16.5 % (11.6-17.2) Platelet Count 632 TH/MM3 (150-450) Mean Platelet Volume 7.6 FL (7.0-11.0) Sodium Level 139 MEQ/L (136-145) Potassium Level 4.1 MEQ/L (3.5-5.1) Chloride Level 103 MEQ/L (98-107) Carbon Dioxide Level 24.7 MEQ/L (21.0-32.0) Anion Gap 11 MEQ/L (5-15) Blood Urea Nitrogen 19 MG/DL (7-18) Creatinine 0.70 MG/DL (0.50-1.00) Estimat Glomerular Filtration 89 ML/MIN (>89) Rate Random Glucose 101 MG/DL (74-106) Calcium Level 8.2 MG/DL (8.5-10.1) . Result Diagram: 02/09/17 0404 02/09/17 0404 Microbiology Microbiology Date/Time Procedure Status Source Growth 02/06/17 18:40 Gram Stain - Final Complete Sputum Endotracheal 02/06/17 18:40 Sputum Culture - Final Complete Sputum Endotracheal HEAVY GROWTH NORMAL RESPIRATORY LIZ 02/06/17 14:38 Urine Culture - Final Complete Urine Catheterized Urine Cindy Tropicalis 02/06/17 05:06 Aerobic Blood Culture - Preliminary Resulted Blood Peripheral NO GROWTH IN 3 DAYS 02/06/17 05:06 Anaerobic Blood Culture - Preliminary Resulted Blood Peripheral NO GROWTH IN 3 DAYS . Imaging Last Impressions Chest X-Ray 02/08/17 0000 Signed Impressions: Service Date/Time: Wednesday, February 08, 2017 10:29 - CONCLUSION: Large bore chest tube on the right. Apparent small bore chest tube subcutaneous tissues on the right. There is no pneumothorax. Israel Dominguez MD FACR Brain MRI 02/06/17 0000 Signed Impressions: Service Date/Time: Monday, February 06, 2017 21:31 - CONCLUSION: 1. Postoperative partial left craniectomy for decompression and evacuation of left subdural hematoma. There is some residual subdural hematoma present predominantly posteriorly in the occipital region and posterior fossa. 2. Bilateral temporal lobe contusions with measurements given above. Scattered subarachnoid hemorrhage. 3. Fluid in the temporal bones bilaterally and in the sphenoid sinus. There minimal right to left midline shift. Multiple hemosiderin deposits noted on the susceptibility weighted images especially over both convexities and on the left side laterally. Juan Bajwa MD Head CT 02/04/17 0600 Signed Impressions: Service Date/Time: February 04:39 - CONCLUSION: 1. Study is moderately degraded by streak and motion artifact limiting sensitivity. 2. Interval removal of the previously noted ventricular shunt catheter. 3. The low attenuation region in the right temporal lobe is no significant change. 4. No significant change in the left subdural hematoma. Kalin Tate MD Upper Extremity Ultrasound 02/04/17 0000 Signed Impressions: Service Date/Time: February 07:52 - CONCLUSION: No DVT is identified. Please note that portions of the basilic and cephalic vein are not visualized. Emerson Mariee MD Hand X-Ray 02/02/17 0000 Signed Impressions: Service Date/Time: Thursday, February 02, 2017 14:00 - CONCLUSION: No acute left hand abnormality is identified. Emerson Mariee MD Thoracic Spine CT 01/27/17 170 Signed Impressions: Service Date/Time: Friday, January 27, 2017 17:20 - CONCLUSION: 1. No fracture or subluxation. 2. Minimal subcutaneous emphysema seen within the upper neck likely related to patient's temporal bone fracture. Eb Guerin MD Pelvis X-Ray 01/27/171699 Signed Impressions: Service Date/Time: Friday, January 27, 2017 16:54 - CONCLUSION: 1. Left pubic rami fractures. Otoniel Crain MD Lumbar Spine CT 01/27/17 170 Signed Impressions: Service Date/Time: Friday, January 27, 2017 17:20 - CONCLUSION: 1. No fracture or subluxation of the lumbar spine. 2. There are fractures of the right sacrum discussed in detail on CT the abdomen/pelvis. Eb Guerin MD Chest CT 01/27/171699 Signed Impressions: Service Date/Time: Friday, January 27, 2017 17:25 - CONCLUSION: 1. Comminuted fracture involving the right scapula. 2. Minimal posterior atelectatic changes bilaterally. Juan Carlos Jc MD Cervical Spine CT 01/27/171699 Signed Impressions: Service Date/Time: Friday, January 27, 2017 17:24 - CONCLUSION: 1. No acute fracture or prevertebral soft tissue swelling. 2. Straightening of the normal cervical lordosis. 3. Cervical spondylosis from C3 through C6. 4. Mild bilateral foraminal narrowing at C3-4, C4-5 and C5-6. Juan Carlos Jc MD Abdomen/Pelvis CT 01/27/171699 Signed Impressions: Service Date/Time: Friday, January 27, 2017 17:25 - CONCLUSION: 1. Acute fractures along the right sacrum as well as the left superior and inferior pubic rami. 2. No intra-abdominal trauma identified. Juan Carlos Jc MD Radius/Ulna X-Ray 01/27/17 0000 Signed Impressions: Service Date/Time: Friday, January 27, 2017 16:54 - CONCLUSION: Soft tissue swelling involving the right mid forearm without underlying radial or ulnar fracture. Juan Carlos Jc MD . Procedures * left sided fronto-temporal craniotomy with evacuation of subdural hematoma and placement of ventriculosotmy * Chest tube placement on right * intubation / mechanical ventilation . Assessment and Plan Disease Oriented Problem List: (1) Traumatic brain injury (2) Acute subdural hematoma (3) Basilar skull fracture (4) Major neurocognitive disorder as late effect of traumatic brain injury without behavioral disturbance (5) Fracture of left pelvis (6) Sacral fracture (7) Right scapula fracture (8) Pneumothorax Symptom Scale: (1) Pain 0-10 Scale: Unable to quantify Comment: Sources of pain might include recent head trauma and surgery; prolonged bedbound status; restraints; zhong catheter; orotracheal tube; vascular access catheters. . (2) Dyspnea 0-10 Scale: Unable to quantify Comment: Had been tolerating C Pap trials but on 02/09/17 failed the trial and became apneic. Will continue to need air-way protection even if she completely weaned from the ventilator. . (3) Encephalopathy 0-10 Scale: Unable to quantify Comment: Non-interactive. Some spontaneous but non-purposeful movements. . Pertinent Non-Medical Issues Psychosocial: , mother of 4. and children living in [place]. Parents live in [place]. Spiritual: [employer]. [employer] and spirituality are very important to her. Parents have klaey and many people are praying for her. Legal: No written or verbal advance directives. Ethical issues impacting care: Incapacitated. Unlikely to regain capacity. . Important Contacts * Kenny Terrazas (spouse) [phone] * Shiela (mother) [phone] . Prognosis Though patient is relatively young, she has had a very severe traumatic brain injury. There has been minimal neurologic recovery. Her recent MRI from shows evidence of diffuse axonal injury. Though some recovery is feasible, Dr. Bahena sees chances of meaningful neurological recovery to be poor at this time. Critical care and the trauma team are in agreement. If there is going to be any type of improvement it will likely be very slow and take place over many months. . Code Status: Full Code Plan == Code Status: FULL CODE == Decision Making: Patient is incapacitated and is not expected to regain capacity in the foreseeable future, if at all. As there is no written designation of health care surrogate, proxy decision making falls to the patient's . == Goals of medical treatment: In my family meeting of 02/08/17, and parents were quite emphatic that in spite of the patient's poor prognosis for meaningful neurologic recovery, the patient would continue to want full aggressive care including tracheostomy and PEG tube placement. Mother , in particular, is emphatic and speaks of the large number of people praying for her recovery. == Pain: Patient currently has orders for scheduled hydrocodone and prn fentanyl. These appear to be adequate. It is hard to distinguish pain from agitation in this patient. Given that we want to prevent over-sedation agree that we should avoid increasing scheduled opiates at this time. No further recommendations at this time. == Dyspnea: Had been tolerating CPAP trials, but failed this AM with some apnea. No further recommendations at this time. Even if patient is able to wean from vent, she will need airway protection . == Encephalopathy: Encephalopathy is quite dense. Given minimal recovery to date, extent of brain injury, and MRI results of 02/06/17, chances of meaningful neurological recovery are looking bleak. == Disposition: Family would like patient to be moved to the [facility] for post-acute care if she survives to discharge. and children are living in the [place] area. == Palliative care will continue to follow to assist with symptom management and to further clarify goals of medical treatment as the clinical course evolves. . Attestation To help prompt me to consider important information that might be impacting today's encounter and assessment, information from prior notes written by myself or my colleagues may have been "brought forward" into today's note. My signature on this note, however, is an attestation that I personally performed the exam, history, and/or decision-making noted today, and, unless otherwise indicated, the interactions with patient, family, and staff as well as the review of records all occurred today. I also attest that the listed assessment and stated plan reflect my best clinical judgment today based on the combination of historical information, prior notes, and today's exam/ interactions. When time spent is documented, it refers only to time spent today by the signer, or if indicated, combined time spent today by collaborating physician/nurse practitioner. . Maxi Zelaya MD Feb 09, 2017 19:53
[2017-02-10] VITALS (20 sets, daily range): BP systolic 111–132; BP diastolic 53–60; PULSE 96–111; RESP 13–29; TEMP 98.7–102.6; O2SAT 97–100
[2017-02-10] MEDS: CEFEPIME INJ 2,000 MG in SODIUM CHLORIDE 0.9% INJ 100 ML IV SCH ×3 (01:00→17:42)
[2017-02-10] MEDS: ENOXAPARIN SODIUM 30 MG/0.3 ML SYRINGE SQ SCH ×2 (01:00→12:46)
[2017-02-10] MEDS ORDERED: ATROPINE SULFATE 1 MG/10 ML SYRINGE ONE (04:08)
[2017-02-10] MEDS ORDERED: EPINEPHrine HCL (1:10,000) 1 MG/10 ML SYRINGE ONE (04:08)
[2017-02-10] MEDS ORDERED: LIDOCAINE HCL 2% 100 MG/5 ML SYRINGE ONE (04:09)
--- NOTE | 2017-02-10 04:47 | RADRPT ---
EXAM DATE/TIME: 02/10/2017 04:19 [place] COMPARISON: CT BRAIN W/O CONTRAST, February 04, 2017, 4:39. INDICATIONS : Follow up subdural hematoma. RADIATION DOSE: 41.01 CTDIvol (mGy) MEDICAL HISTORY : None SURGICAL HISTORY : Craniotomy. ENCOUNTER: Subsequent ACUITY: 2 weeks PAIN SCALE: Non-responsive LOCATION: cranial TECHNIQUE: Multiple contiguous axial images were obtained of the head. Using automated exposure control and adj ustment of the mA and/or kV according to patient size, radiation dose was kept as low as reasonably a chievable to obtain optimal diagnostic quality images. DICOM format image data is available electro nically for review and comparison. FINDINGS: The patient has had previous craniectomy with interval development of hypodensity in the paramedian f rontal and parietal regions bilaterally consistent with areas of acute infarction. There is hypodensi ty in the left temporal lobe compatible with again seen. There is hypodensity in the right temporal r egion from previous contusions. There is no hemorrhage seen on the current study. CONCLUSION: 1. 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 2. Bilateral temporal hypodensities are stable. Pierre Holt MD on February 10, 2017 at 4:42 Board Certified Radiologist. This report was verified electronically.
[2017-02-10] MEDS: ACETAMINOPHEN 325 MG TAB PO PRN ×2 (05:41→12:46)
[2017-02-10] MEDS: SODIUM CHLOR 0.9% 1000 ML INJ 1,000 ML IV SCH (06:45)
--- NOTE | 2017-02-10 07:55 | HHI.PR ---
Neuropsych Emotional Emotional: UnabletoAssess: Emotional, Anxious/Fearful, Depressed/Sad, Hostile/ Resentful, Irritable/Angry/Frustrate, Labile, Constricted/Blunted Behavior Behavior: Unable to Asses: Behavior, Coping/Acceptance, Cooperative w/ Treatment, Motivation, Frustration Tolerance/[place], Impulsive/Agitated, Suicidal/ Homicidal Risk Cognitive Cognitive: Unable to Asses: Cognitive, Attention/Concentration, Confused/ Orientation, Insight/Awareness, Judgement/Problem-Solving, Memory Psychosocial Psychosocial: Intact: Psychosocial, Family/Other Adjustment, Severe: Realistic Expectation, Unable to Asses: Self-Esteem/Confidence Progress Notes/Response to Tx Contents of Sessions: Adjustment, Level of Consciousness Time with Patient: 15 minutes Premorbid psychological status Premorbid Cognitive, Emotional and Behavioral Status: Deferred. No family present to ascertain premorbid abilities. Behavioral Reactions of Patient and Family/Support System: Deferred. The patients family is likley experiencing ongoing issues of adjustment given the nature of the injury, and this aspect of recovery will require ongoing monitoring. Emotional/Behavioral Status of Patient and Family/Support System: Deferred. Pertinent issues, if appropriate to this patients clinical care, are described in detail above. Maximizing acute care outcome It is recommended that the patient be monitored for emergent behavioral impulsivity as the medical condition evolves. This patients neuropathological challenges may limit their rehabilitation potential going forward, and these challenges will require specialized therapeutic skills to maximize outcome. Additionally, the patients family is experiencing ongoing issues of adjustment given the traumatic nature of the injury, and they may benefit from ongoing psychological assistance. Anticipated Problems Ongoing areas of concern will include behavioral impulsivity, lack of insight and judgment, which is expected to improve with time and treatment. Presently , the patient unresponsive, intubated and sedated. Treatment Plan This clinician will continue to follow with you throughout the course of this patients acute care treatment, and I will be available to meet with the patient s family/support system to facilitate their understanding and the ongoing care of their family member. The goals of neuropsychological intervention shall be both educational and supportive to the family/support system as is deemed clinically appropriate. [facility] Level: III:Localized response-total assist Impression This is a 46 year old woman s/p TBI 2T fall on 01/27/2017, with large left temporoparietal SDH, right basal skull fracture through petrous bone with extrusion of brain matter on the right, and is s/p DC/ventriculostomy placement. 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 This is day [address] Recent head CT revealed evolving bilateral frontal and parietal watershed infarcts and stable bilateral temporal hypodensities. Neurobehaviorally this patient has plateaued, and consensus is that she has a poor chance for a meaningful recovery. Trauma team consensus is to start Amantadine 100 qD and she has Valproic Acid 250 TID for emerging agitation/ restlessness. She meets criteria for Rancho III emerging Rancho IV. I will continue to follow. Luis Murphy PhD Feb 10, 2017 7:55 am
[2017-02-10] MEDS: CHLORHEXIDINE 0.12% (ORAL KIT) 15 ML CUP MT SCH ×2 (08:00→20:00)
[2017-02-10] MEDS: VANCOMYCIN INJ 1,250 MG in SODIUM CHLOR 0.9% 250 ML INJ 250 ML IV SCH ×2 (09:32→22:57)
[2017-02-10] MEDS: SODIUM CHLORIDE 1 GRAM TAB PO SCH (10:07)
[2017-02-10] MEDS: DOCUSATE SODIUM 50 MG/SENNA 8.6 MG TAB PO SCH ×2 (10:07→22:59)
[2017-02-10] MEDS: FAMOTIDINE 20 MG TAB NG SCH ×2 (10:07→22:59)
[2017-02-10] MEDS: VALPROIC ACID SYRUP 250 MG/5 ML UDC PO SCH ×3 (10:07→17:42)
[2017-02-10] MEDS: BISACODYL 10 MG SUPP RECTAL SCH (10:07)
[2017-02-10] MEDS: SODIUM CHLORIDE 0.9% FLUSH 10 ML FLUSH IV FLUSH SCH ×2 (10:08→21:00)
[2017-02-10] MEDS: BACITRACIN TOP OINT 15 GM TUBE TOPICAL SCH ×2 (10:08→21:00)
[2017-02-10] MEDS: FLUCONAZOLE 400 MG PREMIX BAG 200 ML IV SCH (10:08)
[2017-02-10] MEDS: AMANTADINE HCL SOLN 100 MG/10 ML UDC NG SCH (10:16)
[2017-02-10 12:17] LABS: HEMATOCRIT 23.3 % (35.0-46.0); MEAN CELL VOLUME 91.4 FL (80.0-100.0); MEAN CORPUSCULAR HEMOGLOBIN 30.8 PG (27.0-34.0); MEAN CORPUSCULAR HGB CONC 33.7 % (32.0-36.0); PLATELET COUNT 687 TH/MM3 (150-450); RED BLOOD COUNT 2.55 MIL/MM3 (4.00-5.30); RED CELL DISTRIBUTION WIDTH 16.1 % (11.6-17.2); REVIEW FLAG FINAL; WHITE BLOOD COUNT 8.9 TH/MM3 (4.0-11.0)
[2017-02-10 12:39] LABS: BICARBONATE 27.1 MEQ/L (21.0-32.0); POTASSIUM 3.4 MEQ/L (3.5-5.1)
--- NOTE | 2017-02-10 13:36 | HHI.CCPN ---
Subjective Brief History severe traumatic brain injury. Yoandy coma scale 3. Large left temporoparietal subdural hematoma, right basal skull fracture through the petrous bone with extrusion of some brain matter on the right, fracture of the right scapula, left superior inferior ramus pubic fracture with minimal displacement and a right sacral fracture. Patient will be taken immediately to the operating room. Patient underwent a left frontotemporal craniectomy with evacuation of subdural hematoma and placement of ventriculostomy Orthopedic consult was obtained and no further operative management will be instituted 24 Hour Review/Hospital Course Patient has been in the ICU overnight intubated and ventilated 01/29/17 Neurologic status is unchanged ICP remains low Pupils are equal about 2 mm and somewhat reactive Patient remains on propofol fentanyl Hypertonic 3% saline at 30 cc/h Keppra No clinical suspicion of seizures 01/30/17 Patient is withdrawing all 4 extremities and localizes and opened her eyes ICP remains low around 8 mmHg Removed from propofol and fentanyl or any form of sedation Sodium 158 and hypertonic saline removed Remains intubated and ventilated and starting to pickup on her own the rate 01/31 open eyes spontaneously-move extremities ICP around 10 mmHg ventriculostomy 110cc/8hrs tolerating CPAP 02/01/17 ICP remains low around 8-10 mmHg Probably ventriculostomy can be safely removed soon as per neurosurgery Patient opening eyes and trying to follow some commands moves both lower extremities and right arm but very little in the left arm Patient is definitely neurologically improving Tolerated CPAP for about 4 hours 02/02/17 Patient neurologically unchanged. Opens eyes to sternal rub and moves all 4 extremities right more than left as described yesterday Does not follow commands Repeat CT scan shows evolving parietal trauma with edema however no new changes EEG consistent with encephalopathy and no seizures Patient is on Keppra and valproic acid. In this case valproic acid has been added by neuropsychology for unrelated reasons ICP remains around 8-9 mmHg and ventriculostomy is a 10 cm Will be probably able to remove either ICP bolt, ventriculostomy or both soon as per neurosurgery 02/04/17 Neurologically slightly improved patient's opening eyes Moves extremities but left side is clearly weaker than the right Right chest drain in position however still apical pneumothorax which is enlarging and we'll place another anterior drain Patient spiked fever to 103 yesterday Triple-lumen removed Venous ultrasound did not reveal any deep venous thrombosis in the arm or the shoulder girdle Patient doing well at this time continue antibiotics 02/05/17 off sedation slowly emerging CXR stable-keep drain on suction 02/06 sodium 141 hgb 11 moving all 4 extremities CXR no PTX NS cleared for lovenox 02/07/17 MRI shows BARBY clinically slowly emerging 02/08/17 patient reached a plateau palliative discussion with family they wish to proceed with peg/trach 02/09/17 febrile 102.9 wbc 18 CSF /urine cultures noted ID managing tolearing CPAP-but not extubatable due to mental status 02/10/17 No change in neurologic status Patient is moving all 4 extremities but left side is weaker than the right No change in level of consciousness precluding extubation Discussed with family through palliative care and directly and the want everything done This patient has a very poor prognosis as far as neurologic recovery is concerned and will require tracheostomy and PEG at this time which are scheduled for tomorrow Objective Vital Signs Date Time Temp Pulse Resp B/P Pulse Ox O2 Delivery O2 Flow Rate FiO2 02/10/17 12:00 103 02/10/17 12:00 40 02/10/17 12:00 100.9 21 111/53 100 Intake and Output 02/09/17 02/09/17 02/10/17 08:00 16:00 00:00 Intake Total 600 ml 759 ml 924 ml Output Total 0 ml 0 ml 1650 ml Balance 600 ml 759 ml -726 ml Result Diagram: 02/10/17 1201 02/10/17 1201 Imaging Last [address] 02/10/17 0600 Signed Impressions: Service Date/Time: Friday, February 10, 2017 04:19 - CONCLUSION: 1. 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 2. Bilateral temporal hypodensities are stable. 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 No change in neurologic status Hemodynamic/Cardiac Hemodynamically stable Pulmonary/Respiratory Bilateral breath sounds normal PO2 FiO2 gradient on 40% FiO2 Patient of course cannot be extubated due to neurologic deficit and inability to protect upper airway and therefore will need tracheostomy and PEG Abdomen/GI Nutrition Abdomen soft enteral feeds tolerated Renal/I&O Preserved renal function Assessment and Plan Plan neuro status same HD stable CT right to waterseal one CT removed continue tube feeds start SBT- abx for + CSF culture will insert zhong in light of febrile episodes,exact I&O s and protect perineal skin form break down - will plan for trach next 48 hrs Attestation Tracheostomy and PEG placement tomorrow Patient will need long-term placement This patient is unfortunately face with a poor neurologic recovery and long- term prospect Critical-care 35 minutes Noemy Philip MD Feb 10, 2017 13:36
--- NOTE | 2017-02-10 14:00 | HHI.NSPN ---
(Marques MorenoCash CHRIS) History Chief Complaint: Unable to obtain due to clinical condition. (Marques Moreno) Interval History 01/27: Patient is a middle-aged female who according to her family fell through a garage ceiling landing on the floor one-story down. Positive loss of consciousness. Patient was reportedly unresponsive immediately after the event. No seizure activity reported. She was GCS 3-4 at the scene and brought to [facility] emergency room as a trauma alert per EMS. She was intubated in the emergency room. She was noted to have a fixed dilated left pupil and pinpoint right pupil in the emergency room on initial evaluation. The undersigned reviewed the patient's CT scan images shortly after completion while the patient was in the CT scanning suite. Images revealed a large left hemispheric acute subdural hematoma with approximate 16 mm midline shift, significant effacement of the left ventricle and cisterns. Patient was taken emergently to the operating room from the CT scanning suite. 01/28: The patient is intubated and mechanically ventilated with propofol & fentanyl for sedation. She is on norepinephrine for blood pressure support which Nursing states she is titrating down. Nursing also reported that the patient did squeeze with her hands this morning. The patient was transfused this morning for a haemoglobin of 7.4. 01/29: The patient remains intubated and mechanically ventilated. The propofol & fentanyl drips have been off since 929 this morning. She is no longer on any vasopressors. Saline 3% is infusing. Nursing states she is withdrawing but has not had any eye opening. ICP has been running 4 to 5 on the ventriculostomy per Nursing and that the bolt pressure is not being used since it was reportedly not in proper position. Nursing also reports excessive drainage from the ventriculostomy. 01/30: Patient intubated on minimal sedation. Not opening eyes to verbal or tactile stimulation 01/31: Patient remains intubated on minimal sedation. At this point she is opening her eyes and tracking to verbal stimulation. 02/01: The patient continues to be intubated and mechanically ventilated. The fentanyl was discontinued this morning.Nursing reported that the left pupil appeared slightly larger this morning and that the ventriculostomy ICP has been ranging between 5 and 10. 02/02: The patient is still intubated and mechanically ventilated. She remains off any sedation. Nursing reported that she did follow commands to move the right hand once yesterday. When an EEG was done yesterday the tech reported to Nursing that there was fresh blood to the right side of the head. 02/03: The patient remains intubated and mechanically ventilated. She is noted to be moving the right side extremities spontaneously. Nursing reports that she also was withdrawing on the left to noxious stimuli. The Pipe Connector is preparing to replace the chest tube. The patient did spike a temperature to 103.1 yesterday afternoon. 02/04: The patient is still intubated and mechanically ventilated. She is moving the right lower extremity spontaneously. Nursing reports no response to stimuli with the left upper extremity, otherwise she is withdrawing still. The ventriculostomy was withdrawn yesterday due to Gram variable rods noted on the Gram stain off the CSF specimen sent for culture when she spiked her temperature on . 8/5: intubated, sedation off. not opening eyes or following command. withdraws x 4. 8/6: MRI Brain completed yesterday, otherwise no changes to neuro checks overnight 02/08: When seen this morning the patient was intubated and mechanically ventilated. She was not on any drips for sedation. Respiratory was present in the room and was going to place her on CPAP. 02/09: The patient remains intubated and mechanically ventilated when seen this afternoon. Nursing reports that the patient failed a CPAP trial and went apneic. The plan is to do a trach tomorrow according to Nursing. 02/10: This afternoon the patient is intubated and on CPAP. (Marques Moreno ) System Review Comments Unable to obtain due to clinical condition. (Marques Moreno) Exam Results Vital Signs Date Time Temp Pulse Resp B/P Pulse Ox O2 Delivery O2 Flow Rate FiO2 02/10/17 12:00 103 02/10/17 12:00 40 02/10/17 12:00 100.9 21 111/53 100 Intake and Output 02/09/17 02/09/17 02/10/17 08:00 16:00 00:00 Intake Total 600 ml 759 ml 924 ml Output Total 0 ml 0 ml 1650 ml Balance 600 ml 759 ml -726 ml (Marques Moreno) Physical Examination GENERAL: The patient is intubated and on CPAP, no sedation. SKIN: Skin warm & dry. Multiple abrasions & ecchymosis to extremities healing w/ o complication. No rashes or other lesions noted. HEENT: Well approximated left-sided craniotomy, pressure monitoring bolt & ventriculostomy insertions sites, w/o any evident drainage, erythema or streaking. Flap full but soft. PERRLA. Orally intubated. OGT. NECK: No JVD, trachea midline. CARDIOVASCULAR: S1S2 w/regular but rapid rate w/o M/G/R, radial & pedal pulses 2 + bilaterally, cap refill < 2 sec, no pedal edema. Monitor is sinus tachycardia w/o any ectopy noted. RESPIRATORY: CTAB w/o W/R/R, equal excursion, nonlaboured, intubated and on CPAP. Right-sided tube thoracotomy. GASTROINTESTINAL: Abdomen soft, bowel sounds not appreciated, OGT w/enteral feeds. MUSCULOSKELETAL: Scattered abrasions & ecchymosis. No evident deformities or clubbing. NEUROLOGICAL: GCS 6T (E1 V1T M4). No eye opening to voice & noxious stimuli. PERRLA 3mm slightly sluggish. Does not follow any commands, no spontaneous movement noted, withdraws to localised noxious stimulus RLE slightly greater than LLE, BUE w/what appears to be weak extension to localised noxious stimuli. Unable to assess sensation. (Marques Moreno) Lab, Micro, Other Results Allergies Coded Allergies Type Severity Reaction Last Updated Verified No Known Allergies 01/31/17 No Recent Impressions Head CT 02/10/17 0600 Signed Impressions: Service Date/Time: Friday, February 10, 2017 04:19 - CONCLUSION: 1. 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 2. Bilateral temporal hypodensities are stable. Pierre Holt MD Chest X-Ray 02/08/17 0000 Signed Impressions: Service Date/Time: Wednesday, February 08, 2017 10:29 - CONCLUSION: Large bore chest tube on the right. Apparent small bore chest tube subcutaneous tissues on the right. There is no pneumothorax. Israel Dominguez MD FACR // 06:00 18:00 06:00 18:00 06:00 18:00 Intake Total 1407 ml 1095 ml 1704 ml 759 ml 1662 ml Output Total 2100 ml 410 ml 0 ml 0 ml 2450 ml Balance -693 ml 685 ml 1704 ml 759 ml -788 ml Intake IV Total 838 ml 923 ml 992 ml 639 ml 784 ml Tube Feeding 399 ml 52 ml 532 ml 478 ml Tube Irrigant 120 ml 120 ml Other 170 ml 180 ml 400 ml Output Urine Total 2100 ml 400 ml 2450 ml Chest Tube Drainage Total 0 ml 10 ml 0 ml 0 ml 0 ml # Voids 5 4 # Bowel Movements 1 4 4 1 Laboratory Tests Test 02/07/17 02/07/17 02/08/17 02/08/17 14:04 16:30 05:15 10:20 White Blood Count 27.2 TH/MM3 30.4 TH/MM3 Red Blood Count 3.23 MIL/MM3 3.17 MIL/MM3 Hemoglobin 9.5 GM/DL 9.5 GM/DL Hematocrit 29.1 % 28.5 % Mean Corpuscular Volume 90.0 FL 89.9 FL Mean Corpuscular Hemoglobin 29.5 PG 30.0 PG Mean Corpuscular Hemoglobin 32.8 % 33.4 % Concent Red Cell Distribution Width 16.1 % 16.0 % Platelet Count 625 TH/MM3 505 TH/MM3 Mean Platelet Volume 7.4 FL 8.3 FL Sodium Level 135 MEQ/L 136 MEQ/L 137 MEQ/L Potassium Level 4.2 MEQ/L 4.9 MEQ/L Chloride Level 97 MEQ/L 101 MEQ/L Carbon Dioxide Level 28.4 MEQ/L 28.7 MEQ/L Anion Gap 10 MEQ/L 7 MEQ/L Blood Urea Nitrogen 14 MG/DL 16 MG/DL Creatinine 0.54 MG/DL 0.50 MG/DL Estimat Glomerular Filtration 120 ML/MIN 132 ML/MIN Rate Random Glucose 123 MG/DL 112 MG/DL Calcium Level 8.6 MG/DL 8.4 MG/DL Valproic Acid (Depakene) Level 50 MCG/ML Test 8/7/17 02/09/17 02/09/17 02/10/17 13:45 04:04 18:42 12:01 Vancomycin Level Trough 17.7 MCG/ML 21.3 MCG/ML White Blood Count 18.1 TH/MM3 8.9 TH/MM3 Red Blood Count 3.19 MIL/MM3 2.55 MIL/MM3 Hemoglobin 9.7 GM/DL 7.9 GM/DL Hematocrit 28.9 % 23.3 % Mean Corpuscular Volume 90.5 FL 91.4 FL Mean Corpuscular Hemoglobin 30.4 PG 30.8 PG Mean Corpuscular Hemoglobin 33.6 % 33.7 % Concent Red Cell Distribution Width 16.5 % 16.1 % Platelet Count 632 TH/MM3 687 TH/MM3 Mean Platelet Volume 7.6 FL 6.7 FL Sodium Level 139 MEQ/L 142 MEQ/L Potassium Level 4.1 MEQ/L 3.4 MEQ/L Chloride Level 103 MEQ/L 108 MEQ/L Carbon Dioxide Level 24.7 MEQ/L 27.1 MEQ/L Anion Gap 11 MEQ/L 7 MEQ/L Blood Urea Nitrogen 19 MG/DL 19 MG/DL Creatinine 0.70 MG/DL 0.53 MG/DL Estimat Glomerular Filtration 89 ML/MIN 123 ML/MIN Rate Random Glucose 101 MG/DL 125 MG/DL Calcium Level 8.2 MG/DL 7.6 MG/DL Vital Signs Date Time Temp Pulse Resp B/P Pulse Ox O2 Delivery O2 Flow Rate FiO2 02/10/17 12:00 103 02/10/17 12:00 40 02/10/17 12:00 100.9 103 21 111/53 100 02/10/17 11:12 100 40 02/10/17 10:00 106 02/10/17 08:11 100 40 02/10/17 08:11 40 02/10/17 08:00 102 02/10/17 08:00 99.7 102 17 132/60 100 02/10/17 08:00 40 02/10/17 06:00 107 02/10/17 04:30 100 40 02/10/17 04:02 100 100 02/10/17 04:00 99 02/10/17 04:00 102.6 99 13 126/58 100 02/10/17 04:00 40 02/10/17 02:00 102 02/10/17 00:20 100 40 02/10/17 00:00 40 02/10/17 00:00 98.7 104 17 123/59 100 02/10/17 00:00 104 02/09/17 22:00 95 02/09/17 20:12 100 40 02/09/17 20:00 40 02/09/17 20:00 104 02/09/17 20:00 99.5 104 14 119/54 98 02/09/17 18:00 112 02/09/17 16:03 100 40 02/09/17 16:00 102.7 114 19 123/58 100 02/09/17 16:00 114 02/09/17 16:00 40 02/09/17 14:00 101 02/09/17 12:00 99.8 102 16 133/60 100 02/09/17 12:00 40 02/09/17 12:00 102 02/09/17 11:48 100 40 02/09/17 10:00 96 02/09/17 08:00 100.1 92 15 125/57 100 02/09/17 08:00 92 02/09/17 08:00 40 02/09/17 07:48 40 02/09/17 07:41 100 40 02/09/17 06:00 108 02/09/17 04:18 100 40 02/09/17 04:00 104 02/09/17 04:00 40 02/09/17 04:00 102.9 110 20 125/57 100 02/09/17 02:00 104 02/09/17 00:59 100 40 02/09/17 00:00 99.6 110 20 125/57 100 02/09/17 00:00 40 02/09/17 00:00 100 02/08/17 22:00 102 02/08/17 21:00 99 40 02/08/17 20:00 99.3 106 16 148/63 98 02/08/17 20:00 106 02/08/17 18:00 102 02/08/17 16:00 40 02/08/17 16:00 108 02/08/17 16:00 102.2 108 16 120/59 100 02/08/17 15:44 100 40 02/08/17 14:00 107 02/08/17 12:30 40 02/08/17 12:00 104 02/08/17 12:00 100.0 104 26 109/55 100 02/08/17 11:18 100 40 02/08/17 10:00 101 02/08/17 08:59 40 02/08/17 08:57 100 40 02/08/17 08:54 100 40 02/08/17 08:00 40 02/08/17 08:00 112 02/08/17 08:00 99.3 112 22 120/55 100 02/08/17 06:00 108 02/08/17 04:37 100 40 02/08/17 04:00 99.0 116 20 130/60 100 02/08/17 04:00 40 02/08/17 04:00 116 02/08/17 02:00 116 02/08/17 01:11 100 40 02/08/17 00:00 99.3 108 18 131/60 100 02/08/17 00:00 108 02/08/17 00:00 40 02/07/17 22:00 110 02/07/17 20:28 100 40 02/07/17 20:00 40 02/07/17 20:00 99.3 106 22 127/61 100 02/07/17 20:00 106 02/07/17 18:00 112 02/07/17 16:23 96 40 02/07/17 16:00 99.8 109 26 120/83 100 02/07/17 16:00 120 02/07/17 16:00 40 02/07/17 14:00 118 (Marques Moreno) Medical Decision Making Impression and Plan Impression: 1. Severe acute left hemisphere subdural hematoma with severe midline shift and mass effect. 2. Right temporal bone fracture-nondisplaced Leukocytosis, interval resolution (18.1=>8.9) Anaemia, interval worsening (9.7=>7.9) Thrombocytosis, interval increase (632=>687) Thrombocytopenia, resolved Sodium 142 Hypokalemia (4.1=>3.4) eGFR WNL Hypophosphatemia,resolved CT brain demonstrates no significant change in the left SDH or the right temporal lobe low attenuation region compared to . MRI brain demonstrates some residual left SDH to occipital region & posterior fossa, bilateral temporal lobe contusions & scattered SAH, with a minimal right to left shift. There are multiple haemosiderin deposits noted on susceptibility weighted images over both convexities and the left lateral. T max 102.7 yesterday afternoon. Patient with stable put poor neurological response. POD #14 () s/p: 1. Left decompressive frontotemporoparietal craniotomy for evacuation of acute subdural hematoma. 2. Left frontal ventriculostomy catheter placement 3. Left frontal twist drill for intracranial pressure monitor placement Plan: Primary management per Pipe Connector/Trauma. Frequent neuro checks. Stat CT brain for worsening neuro status. Daily sodium level, maintain sodium in 145-153 range. Continuing ventilatory support and full sedation. Seizure prophylaxis. Ulcer prophylaxis. Continue non chemical DVT prophylaxis. Okay for Lovenox. CT brain in AM. (Marques Moreno) Attending Statement I have personally seen and examined the patient on the date of this note. Pertinent documentation and study results have been reviewed by the undersigned. I have personally developed the treatment plan and performed medical decision making. Agree with findings, exam, and treatment plan as noted above. My examination today, the patient has moderate eye-opening to sternal rub and voice. She does not track to the right or left with her eyes Pupils are mid range and a mildly reactive with mildly disconjugate oculocephalic movements. Minimal flexion deep pain left upper extremity. Does not follow commands Very slow improvement in level of consciousness over the past week. She will need a tracheostomy and PEG tube. (Nic Bahena MD) Marques Moreno Feb 10, 2017 14:00 Nic Bahena MD Feb 10, 2017 19:37
--- NOTE | 2017-02-10 16:21 | HHI.PR ---
Subjective Subjective Comments Intubated for trach/PEG 02/11/17 Allergies: Coded Allergies: No Known Allergies (Unverified , 01/31/17) per Review of Systems All other ROS: Unable to obtain Exam I&O / VS 02/09/17 02/09/17 02/10/17 15:00 23:00 07:00 Intake Total 759 ml 924 ml 738 ml Output Total 0 ml 1650 ml 800 ml Balance 759 ml -726 ml -62 ml Intake IV Total 639 ml 473 ml 311 ml Tube Feeding 251 ml 227 ml Tube Irrigant 120 ml Other 200 ml 200 ml Output Urine Total 1650 ml 800 ml Chest Tube Drainage Total 0 ml 0 ml # Voids 4 # Bowel Movements 4 0 1 Vital Signs Date Time Temp Pulse Resp B/P Pulse Ox O2 Delivery O2 Flow Rate FiO2 02/10/17 15:39 97 40 02/10/17 14:00 111 02/10/17 12:00 103 02/10/17 12:00 40 02/10/17 12:00 100.9 103 21 111/53 100 02/10/17 11:12 100 40 02/10/17 10:00 106 02/10/17 08:11 100 40 02/10/17 08:11 40 02/10/17 08:00 102 02/10/17 08:00 99.7 102 17 132/60 100 02/10/17 08:00 40 02/10/17 06:00 107 02/10/17 04:30 100 40 02/10/17 04:02 100 100 02/10/17 04:00 99 02/10/17 04:00 102.6 99 13 126/58 100 02/10/17 04:00 40 02/10/17 02:00 102 02/10/17 00:20 100 40 02/10/17 00:00 40 02/10/17 00:00 98.7 104 17 123/59 100 02/10/17 00:00 104 02/09/17 22:00 95 02/09/17 20:12 100 40 02/09/17 20:00 40 02/09/17 20:00 104 02/09/17 20:00 99.5 104 14 119/54 98 02/09/17 18:00 112 General: Intubated, No acute distress Musculoskeletal: ROM (Within functional limits) Psychiatric: Other (Generalized response to sternal rub; not following to open eyes or focus to voice) Neurologic: Pupils (equal; not following to track her focus to voice) Motor: Right Upper Extremity ( extends to painful stim), Left Upper Extremity ( withdrawal to painful stim), Right Lower Extremity (withdrawal to painful stim) , Left Lower Extremity (withdrawal to painful stim) Clonus: Negative Objective Micro and Labs Laboratory Tests Test 02/09/17 02/10/17 18:42 12:01 Vancomycin Level Trough 21.3 White Blood Count 8.9 Red Blood Count 2.55 Hemoglobin 7.9 Hematocrit 23.3 Mean Corpuscular Volume 91.4 Mean Corpuscular Hemoglobin 30.8 Mean Corpuscular Hemoglobin 33.7 Concent Red Cell Distribution Width 16.1 Platelet Count 687 Mean Platelet Volume 6.7 Sodium Level 142 Potassium Level 3.4 Chloride Level 108 Carbon Dioxide Level 27.1 Anion Gap 7 Blood Urea Nitrogen 19 Creatinine 0.53 Estimat Glomerular Filtration 123 Rate Random Glucose 125 Calcium Level 7.6 Date/Time Procedure Status Source Growth 02/06/17 18:40 Gram Stain - Final Complete Sputum Endotracheal 02/06/17 18:40 Sputum Culture - Final Complete Sputum Endotracheal HEAVY GROWTH NORMAL RESPIRATORY LIZ 02/06/17 14:38 Urine Culture - Final Complete Urine Catheterized Urine Cindy Tropicalis 02/06/17 05:06 Aerobic Blood Culture - Preliminary Resulted Blood Peripheral NO GROWTH IN 4 DAYS 02/06/17 05:06 Anaerobic Blood Culture - Preliminary Resulted Blood Peripheral NO GROWTH IN 4 DAYS Assessment and Plan Diagnosis: (1) Traumatic brain injury Encounter type: subsequent encounter Assessment 1. Traumatic brain injury 01/27/17 status post fall including large acute subdural hematoma left frontal temporal parietal area measuring 20 mm with possible epidural components superiorly; 7 mm of subfalcine herniation to the right with diffuse effacement of the left cerebral sulci and right temporal fracture status post left decompressive frontotemporal parietal craniotomy with evacuation of subdural hematoma with placement of ICP monitor and ventriculostomy. Now [place] level 3 2. Associated injuries include: -Left superior and inferior pubic rami fracture -Right sacral fracture -Right scapular fracture 3. Trach and PEG planned for 02/11/17 Plan 1. PT/OT providing range of motion. Patient currently dependent for all mobility and ADLs 2. Speech therapy following for coma stim 3. Appreciate neuropsychology consult and follow-up. Amantadine started 02/08/[address] for VTE prophylaxis 5. Continue to reposition every 2 hours to protect skin 6. Patient will likely need ongoing rehabilitation at discharge and case management has referred for LTAC. 7. Will continue follow while hospitalized and at discharge. Terri Springer MD Feb 10, 2017 16:21
--- NOTE | 2017-02-10 16:26 | PD.CONS ---
HPI History of Present Illness This is a 46 year old female who was brought to [facility] as trauma alert after a fall and landed on her head. She was found to have subdural hematoma, pelvic and sacral fractures. She is s/p craniectomy with evacuation subdural hematoma , ventriculostomy. GI has been consulted for PEG tube placement [facility] Past Medical History * Family reports no medical problems or health concerns prior to fall. . Past Surgical History * Hysterectomy * Breast reduction * left sided fronto-temporal craniotomy with evacuation of subdural hematoma and placement of ventriculosotmy . Coded Allergies: No Known Allergies (Unverified , 01/31/17) per Family History * Father with non-insulin requiring diabetes * Paternal grandfather with leukemia * Maternal grandfather with heart disease. . Review of Systems ROS non contributory GI Exam Vitals I&O Vital Signs Date Time Temp Pulse Resp B/P Pulse Ox O2 Delivery O2 Flow Rate FiO2 02/10/17 15:39 97 40 02/10/17 14:00 111 02/10/17 12:00 103 02/10/17 12:00 40 02/10/17 12:00 100.9 103 21 111/53 100 02/10/17 11:12 100 40 02/10/17 10:00 106 02/10/17 08:11 100 40 02/10/17 08:11 40 02/10/17 08:00 102 02/10/17 08:00 99.7 102 17 132/60 100 02/10/17 08:00 40 02/10/17 06:00 107 02/10/17 04:30 100 40 02/10/17 04:02 100 100 02/10/17 04:00 99 02/10/17 04:00 102.6 99 13 126/58 100 02/10/17 04:00 40 02/10/17 02:00 102 02/10/17 00:20 100 40 02/10/17 00:00 40 02/10/17 00:00 98.7 104 17 123/59 100 02/10/17 00:00 104 02/09/17 22:00 95 02/09/17 20:12 100 40 02/09/17 20:00 40 02/09/17 20:00 104 02/09/17 20:00 99.5 104 14 119/54 98 02/09/17 18:00 112 I/O 02/09/17 02/09/17 02/09/17 02/10/17 02/10/17 02/10/17 06:59 14:59 22:59 06:59 14:59 22:59 Intake Total 600 ml 759 ml 924 ml 738 ml 1568 ml Output Total 0 ml 0 ml 1650 ml 800 ml 700 ml Balance 600 ml 759 ml -726 ml -62 ml 868 ml Intake IV Total 402 ml 639 ml 473 ml 311 ml 1016 ml Tube Feeding 138 ml 251 ml 227 ml 402 ml Tube Irrigant 120 ml Other 60 ml 200 ml 200 ml 150 ml Output Urine Total 1650 ml 800 ml 700 ml Chest Tube Drainage Total 0 ml 0 ml 0 ml 0 ml # Voids 3 4 # Bowel Movements 3 4 0 1 1 Imaging Last Impressions Head CT 02/10/17 0600 Signed Impressions: Service Date/Time: Friday, February 10, 2017 04:19 - CONCLUSION: 1. 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 2. Bilateral temporal hypodensities are stable. Pierre Holt MD Chest X-Ray 02/08/17 0000 Signed Impressions: Service Date/Time: Wednesday, February 08, 2017 10:29 - CONCLUSION: Large bore chest tube on the right. Apparent small bore chest tube subcutaneous tissues on the right. There is no pneumothorax. Israel Dominguez MD FACR Brain MRI 02/06/17 0000 Signed Impressions: Service Date/Time: Monday, February 06, 2017 21:31 - CONCLUSION: 1. Postoperative partial left craniectomy for decompression and evacuation of left subdural hematoma. There is some residual subdural hematoma present predominantly posteriorly in the occipital region and posterior fossa. 2. Bilateral temporal lobe contusions with measurements given above. Scattered subarachnoid hemorrhage. 3. Fluid in the temporal bones bilaterally and in the sphenoid sinus. There minimal right to left midline shift. Multiple hemosiderin deposits noted on the susceptibility weighted images especially over both convexities and on the left side laterally. Juan Bajwa MD Upper Extremity Ultrasound 02/04/17 0000 Signed Impressions: Service Date/Time: February 07:52 - CONCLUSION: No DVT is identified. Please note that portions of the basilic and cephalic vein are not visualized. Emerson Mariee MD Hand X-Ray 02/02/17 0000 Signed Impressions: Service Date/Time: Thursday, February 02, 2017 14:00 - CONCLUSION: No acute left hand abnormality is identified. Emerson Mariee MD Thoracic Spine CT 01/27/171699 Signed Impressions: Service Date/Time: Friday, January 27, 2017 17:20 - CONCLUSION: 1. No fracture or subluxation. 2. Minimal subcutaneous emphysema seen within the upper neck likely related to patient's temporal bone fracture. Eb Guerin MD Pelvis X-Ray 01/27/171699 Signed Impressions: Service Date/Time: Friday, January 27, 2017 16:54 - CONCLUSION: 1. Left pubic rami fractures. Otoniel Crain MD Lumbar Spine CT 01/27/171699 Signed Impressions: Service Date/Time: Friday, January 27, 2017 17:20 - CONCLUSION: 1. No fracture or subluxation of the lumbar spine. 2. There are fractures of the right sacrum discussed in detail on CT the abdomen/pelvis. Eb Guerin MD Chest CT 01/27/171699 Signed Impressions: Service Date/Time: Friday, January 27, 2017 17:25 - CONCLUSION: 1. Comminuted fracture involving the right scapula. 2. Minimal posterior atelectatic changes bilaterally. Juan Carlos Jc MD Cervical Spine CT 01/27/171699 Signed Impressions: Service Date/Time: Friday, January 27, 2017 17:24 - CONCLUSION: 1. No acute fracture or prevertebral soft tissue swelling. 2. Straightening of the normal cervical lordosis. 3. Cervical spondylosis from C3 through C6. 4. Mild bilateral foraminal narrowing at C3-4, C4-5 and C5-6. Juan Carlos Jc MD Abdomen/Pelvis CT 01/27/171699 Signed Impressions: Service Date/Time: Friday, January 27, 2017 17:25 - CONCLUSION: 1. Acute fractures along the right sacrum as well as the left superior and inferior pubic rami. 2. No intra-abdominal trauma identified. Juan Carlos Jc MD Radius/Ulna X-Ray 01/27/17 0000 Signed Impressions: Service Date/Time: Friday, January 27, 2017 16:54 - CONCLUSION: Soft tissue swelling involving the right mid forearm without underlying radial or ulnar fracture. Juan Carlos Jc MD Laboratory Test 02/09/17 02/10/17 18:42 12:01 Vancomycin Level Trough 21.3 MCG/ML White Blood Count 8.9 TH/MM3 Red Blood Count 2.55 MIL/MM3 Hemoglobin 7.9 GM/DL Hematocrit 23.3 % Mean Corpuscular Volume 91.4 FL Mean Corpuscular Hemoglobin 30.8 PG Mean Corpuscular Hemoglobin 33.7 % Concent Red Cell Distribution Width 16.1 % Platelet Count 687 TH/MM3 Mean Platelet Volume 6.7 FL Sodium Level 142 MEQ/L Potassium Level 3.4 MEQ/L Chloride Level 108 MEQ/L Carbon Dioxide Level 27.1 MEQ/L Anion Gap 7 MEQ/L Blood Urea Nitrogen 19 MG/DL Creatinine 0.53 MG/DL Estimat Glomerular Filtration 123 ML/MIN Rate Random Glucose 125 MG/DL Calcium Level 7.6 MG/DL Date/Time Procedure Status Source Growth 02/06/17 18:40 Gram Stain - Final Complete Sputum Endotracheal 02/06/17 18:40 Sputum Culture - Final Complete Sputum Endotracheal HEAVY GROWTH NORMAL RESPIRATORY LIZ 02/06/17 14:38 Urine Culture - Final Complete Urine Catheterized Urine Cindy Tropicalis 02/06/17 05:06 Aerobic Blood Culture - Preliminary Resulted Blood Peripheral NO GROWTH IN 4 DAYS 02/06/17 05:06 Anaerobic Blood Culture - Preliminary Resulted Blood Peripheral NO GROWTH IN 4 DAYS Physical Examination HEENT: normocephalic; atraumatic; no jaundice. intubated CHEST: CTA CARDIAC: RRR ABDOMEN: Soft, nondistended, nontender; no hepatosplenomegaly; bowel sounds are present in all four quadrants. EXTREMITIES: No clubbing, cyanosis, or edema. SKIN: Normal; no rash; no jaundice. 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 D/w pt's , he is agreeable PLAN - EGD with PEG tube placement tomorrow - obtain consent - hold TF after midnight - on abx - hold lovenox - further recs to follow This pt seen by myself and Dr Justice and this note is written on his behalf Donna Banks Feb 10, 2017 16:26
--- NOTE | 2017-02-10 20:20 | HHI.HCPN ---
Reason for visit a. To assist with evaluation and management of symptoms including: pain; dyspnea; encephalopathy b. To assist medical decision maker(s) with: better understanding of current medical conditions; weighing benefits/burdens of medical treatment options; making medical treatment decisions. . Subjective/Interval History No significant change overnight. No evidence of neurological improvement noted nursing or medical team. Tolerated CPAP trial most of day today. Tracheostomy planned for 02/11/17. Tmax is 102.6. Remains slightly tachycardic. Blood pressures stable. Pulse oximetry 97-100% on 40% FiO2. Hemoglobin fell to 7.9 today. WBC down to 8.9. Platelets continued to climb to 687. Calcium low at 7.6. Repeat head CT done today shows evolving bilateral frontal and parietal parafalcine watershed infarcts. Nursing pain level assessments have shown pain levels of 0. No use of the ordered hydrocodone since 02/04/17. No fentanyl use since 02/04/17. . Family/friend interactions Spoke with patient's . I answered his questions regarding grading of the diffuse axonal injury. Given frequent questions regarding the injury I personally telephoned Luis Murphy, PhD , neuropsychologist, who has been rounding on the patient with the trauma team. I have asked him to speak directly to the patient's to help answer some of these questions and provide additional level of support. . Advance Directives Living Will: Never completed Health Care Surrogate: Never completed Durable Power of Numerical Control Operator: Never completed Advance Directive Specifics Date completed: No advance directive completed. . Health Care Surrogate(s): No advance directive completed. . Documented care wishes: No written documentation of health care preferences / goals. . Objective Vital Signs Date Time Temp Pulse Resp B/P Pulse Ox O2 Delivery O2 Flow Rate FiO2 02/10/17 18:00 96 02/10/17 16:00 40 02/10/17 16:00 99.1 102 29 126/58 97 02/10/17 16:00 102 02/10/17 15:39 97 40 02/10/17 14:00 111 02/10/17 12:00 103 02/10/17 12:00 40 02/10/17 12:00 100.9 103 21 111/53 100 02/10/17 11:12 100 40 02/10/17 10:00 106 02/10/17 08:11 100 40 02/10/17 08:11 40 02/10/17 08:00 102 02/10/17 08:00 99.7 102 17 132/60 100 02/10/17 08:00 40 02/10/17 06:00 107 02/10/17 04:30 100 40 02/10/17 04:02 100 100 02/10/17 04:00 99 02/10/17 04:00 102.6 99 13 126/58 100 02/10/17 04:00 40 02/10/17 02:00 102 02/10/17 00:20 100 40 02/10/17 00:00 40 02/10/17 00:00 98.7 104 17 123/59 100 02/10/17 00:00 104 02/09/17 22:00 95 02/09/17 20:12 100 40 Intake & Output 02/10/17 02/10/17 06:59 18:59 Intake Total 1662 ml 1568 ml Output Total 2450 ml 700 ml Balance -788 ml 868 ml Intake IV Total 784 ml 1016 ml Tube Feeding 478 ml 402 ml Other 400 ml 150 ml Output Urine Total 2450 ml 700 ml Chest Tube Drainage Total 0 ml 0 ml # Bowel Movements 1 1 . Physical Exam CONSTITUTIONAL/GENERAL: This is an adequately nourished patient, intubated, minimally responsive in an SICU bed. TUBES/LINES/DRAINS: Chest tube (right sided) ; peripheral iv; orotracheal tube ; orogastric tube; soft wrist restraints; SKIN: No jaundice, rashes, or lesions. Ecchymoses on upper extremities. No wounds seen anteriorly. Skin temperature appropriate. Not diaphoretic. HEAD: Healing left craniotomy wound (no bone flap) EYES: Pupils equal and round. Not tracking. No scleral icterus. No injection or drainage. Fundi not examined. ENT: Unable to assess hearing -- does not respond to voice. Nose without bleeding or purulent drainage. Throat without visible erythema, exudates, masses , or lesions though difficult to assess due to intubations. NECK: Trachea midline. CARDIOVASCULAR: Regular rate and rhythm without murmurs, gallops, or rubs. No JVD. Peripheral pulses symmetric. RESPIRATORY/CHEST: Symmetric, unlabored respirations. Clear to auscultation. Breath sounds equal bilaterally. No wheezes, rales, or rhonchi. GASTROINTESTINAL: Abdomen soft, non-tender, nondistended. No hepato-splenomegaly , or palpable masses. No guarding. Bowel sounds present. GENITOURINARY: Without palpable bladder distension. MUSCULOSKELETAL: Extremities without clubbing, cyanosis, or edema. No mottling. LYMPHATICS: Not examined. NEUROLOGICAL: No spontaneous movements during my visit.. Withdraws all 4 extremities to noxious stimuli. Does not awaken to voice or exam. Unable to follow commands. PSYCHIATRIC: Unable to assess due to level of responsiveness. . Diagnostic Tests Laboratory Laboratory Tests Test 02/08/17 02/08/17 02/08/17 02/09/17 05:15 10:20 13:45 04:04 White Blood Count 30.4 TH/MM3 18.1 TH/MM3 (4.0-11.0) (4.0-11.0) Red Blood Count 3.17 MIL/MM3 3.19 MIL/MM3 (4.00-5.30) (4.00-5.30) Hemoglobin 9.5 GM/DL 9.7 GM/DL (11.6-15.3) (11.6-15.3) Hematocrit 28.5 % 28.9 % (35.0-46.0) (35.0-46.0) Mean Corpuscular Volume 89.9 FL 90.5 FL (80.0-100.0) (80.0-100.0) Mean Corpuscular Hemoglobin 30.0 PG 30.4 PG (27.0-34.0) (27.0-34.0) Mean Corpuscular Hemoglobin 33.4 % 33.6 % Concent (32.0-36.0) (32.0-36.0) Red Cell Distribution Width 16.0 % 16.5 % (11.6-17.2) (11.6-17.2) Platelet Count 505 TH/MM3 632 TH/MM3 (150-450) (150-450) Mean Platelet Volume 8.3 FL 7.6 FL (7.0-11.0) (7.0-11.0) Sodium Level 137 MEQ/L 139 MEQ/L (136-145) (136-145) Potassium Level 4.9 MEQ/L 4.1 MEQ/L (3.5-5.1) (3.5-5.1) Chloride Level 101 MEQ/L 103 MEQ/L (98-107) (98-107) Carbon Dioxide Level 28.7 MEQ/L 24.7 MEQ/L (21.0-32.0) (21.0-32.0) Anion Gap 7 MEQ/L (5-15) 11 MEQ/L (5-15) Blood Urea Nitrogen 16 MG/DL (7-18) 19 MG/DL (7-18) Creatinine 0.50 MG/DL 0.70 MG/DL (0.50-1.00) (0.50-1.00) Estimat Glomerular Filtration 132 ML/MIN 89 ML/MIN (>89) Rate (>89) Random Glucose 112 MG/DL 101 MG/DL (74-106) (74-106) Calcium Level 8.4 MG/DL 8.2 MG/DL (8.5-10.1) (8.5-10.1) Vancomycin Level Trough 17.7 MCG/ML (5.0-10.0) Test 02/09/17 02/10/17 18:42 12:01 Vancomycin Level Trough 21.3 MCG/ML (5.0-10.0) White Blood Count 8.9 TH/MM3 (4.0-11.0) Red Blood Count 2.55 MIL/MM3 (4.00-5.30) Hemoglobin 7.9 GM/DL (11.6-15.3) Hematocrit 23.3 % (35.0-46.0) Mean Corpuscular Volume 91.4 FL (80.0-100.0) Mean Corpuscular Hemoglobin 30.8 PG (27.0-34.0) Mean Corpuscular Hemoglobin 33.7 % Concent (32.0-36.0) Red Cell Distribution Width 16.1 % (11.6-17.2) Platelet Count 687 TH/MM3 (150-450) Mean Platelet Volume 6.7 FL (7.0-11.0) Sodium Level 142 MEQ/L (136-145) Potassium Level 3.4 MEQ/L (3.5-5.1) Chloride Level 108 MEQ/L (98-107) Carbon Dioxide Level 27.1 MEQ/L (21.0-32.0) Anion Gap 7 MEQ/L (5-15) Blood Urea Nitrogen 19 MG/DL (7-18) Creatinine 0.53 MG/DL (0.50-1.00) Estimat Glomerular Filtration 123 ML/MIN Rate (>89) Random Glucose 125 MG/DL (74-106) Calcium Level 7.6 MG/DL (8.5-10.1) Result Diagram: 02/10/17 1201 02/10/17 1201 Microbiology No new results. . Imaging Last Impressions Head CT 02/10/17 0600 Signed Impressions: Service Date/Time: Friday, February 10, 2017 04:19 - CONCLUSION: 1. 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 2. Bilateral temporal hypodensities are stable. Pierre Holt MD Chest X-Ray 02/08/17 0000 Signed Impressions: Service Date/Time: Wednesday, February 08, 2017 10:29 - CONCLUSION: Large bore chest tube on the right. Apparent small bore chest tube subcutaneous tissues on the right. There is no pneumothorax. Israel Dominguez MD FACR Brain MRI 02/06/17 0000 Signed Impressions: Service Date/Time: Monday, February 06, 2017 21:31 - CONCLUSION: 1. Postoperative partial left craniectomy for decompression and evacuation of left subdural hematoma. There is some residual subdural hematoma present predominantly posteriorly in the occipital region and posterior fossa. 2. Bilateral temporal lobe contusions with measurements given above. Scattered subarachnoid hemorrhage. 3. Fluid in the temporal bones bilaterally and in the sphenoid sinus. There minimal right to left midline shift. Multiple hemosiderin deposits noted on the susceptibility weighted images especially over both convexities and on the left side laterally. Juan Bajwa MD Upper Extremity Ultrasound 02/04/17 0000 Signed Impressions: Service Date/Time: February 07:52 - CONCLUSION: No DVT is identified. Please note that portions of the basilic and cephalic vein are not visualized. Emerson Mariee MD Hand X-Ray 02/02/17 0000 Signed Impressions: Service Date/Time: Thursday, February 02, 2017 14:00 - CONCLUSION: No acute left hand abnormality is identified. Emerson Mariee MD Thoracic Spine CT 01/27/17 1700 Signed Impressions: Service Date/Time: Friday, January 27, 2017 17:20 - CONCLUSION: 1. No fracture or subluxation. 2. Minimal subcutaneous emphysema seen within the upper neck likely related to patient's temporal bone fracture. Eb Guerin MD Pelvis X-Ray 01/27/171699 Signed Impressions: Service Date/Time: Friday, January 27, 2017 16:54 - CONCLUSION: 1. Left pubic rami fractures. Otoniel Crain MD Lumbar Spine CT 01/27/171699 Signed Impressions: Service Date/Time: Wednesday, January 27, 2017 17:20 - CONCLUSION: 1. No fracture or subluxation of the lumbar spine. 2. There are fractures of the right sacrum discussed in detail on CT the abdomen/pelvis. Eb Guerin MD Chest CT 01/27/171699 Signed Impressions: Service Date/Time: Wednesday, January 27, 2017 17:25 - CONCLUSION: 1. Comminuted fracture involving the right scapula. 2. Minimal posterior atelectatic changes bilaterally. Juan Carlos Jc MD Cervical Spine CT 01/27/171699 Signed Impressions: Service Date/Time: Friday, January 27, 2017 17:24 - CONCLUSION: 1. No acute fracture or prevertebral soft tissue swelling. 2. Straightening of the normal cervical lordosis. 3. Cervical spondylosis from C3 through C6. 4. Mild bilateral foraminal narrowing at C3-4, C4-5 and C5-6. Juan Carlos Jc MD Abdomen/Pelvis CT 01/27/171699 Signed Impressions: Service Date/Time: Friday, January 27, 2017 17:25 - CONCLUSION: 1. Acute fractures along the right sacrum as well as the left superior and inferior pubic rami. 2. No intra-abdominal trauma identified. Juan Carlos Jc MD Radius/Ulna X-Ray 01/27/17 0000 Signed Impressions: Service Date/Time: Friday, January 27, 2017 16:54 - CONCLUSION: Soft tissue swelling involving the right mid forearm without underlying radial or ulnar fracture. Juan Carlos Jc MD . Procedures * left sided fronto-temporal craniotomy with evacuation of subdural hematoma and placement of ventriculosotmy * Chest tube placement on right * intubation / mechanical ventilation . Assessment and Plan Disease Oriented Problem List: (1) Traumatic brain injury (2) Acute subdural hematoma (3) Basilar skull fracture (4) Major neurocognitive disorder as late effect of traumatic brain injury without behavioral disturbance (5) Fracture of left pelvis (6) Sacral fracture (7) Right scapula fracture (8) Pneumothorax Symptom Scale: (1) Pain 0-10 Scale: Unable to quantify Comment: Sources of pain might include recent head trauma and surgery; prolonged bedbound status; restraints; zhong catheter; orotracheal tube; vascular access catheters. Nurses have not seen evidence of pain. She has not been receiving opiate analgesics. . (2) Dyspnea 0-10 Scale: Unable to quantify Comment: Had been tolerating C Pap trials but on 02/09/17 failed the trial and became apneic. Able to tolerate C Pap trial again on 02/10/17. Will continue to need air-way protection even if she completely weaned from the ventilator. . (3) Encephalopathy 0-10 Scale: Unable to quantify Comment: Non-interactive. Some spontaneous but non-purposeful movements. . Pertinent Non-Medical Issues Psychosocial: , mother of 4. and children living in [place]. Parents live in [place]. Spiritual: Catholic. Jehovah'S Witness and spirituality are very important to her. Parents have kaley and many people are praying for her. Legal: No written or verbal advance directives. Ethical issues impacting care: Incapacitated. Unlikely to regain capacity. . Important Contacts * Kenny Terrazas (spouse) [phone] * Shiela (mother) [phone] . Prognosis Though patient is relatively young, she has had a very severe traumatic brain injury. There has been minimal neurologic recovery. Her recent MRI from shows evidence of diffuse axonal injury. Though some recovery is feasible, Dr. Bahena sees chances of meaningful neurological recovery to be poor at this time. Critical care and the trauma team are in agreement. If there is going to be any type of improvement it will likely be very slow and take place over many months. . Code Status: Full Code Plan == Code Status: FULL CODE == Decision Making: Patient is incapacitated and is not expected to regain capacity in the foreseeable future, if at all. As there is no written designation of health care surrogate, proxy decision making falls to the patient's . == Goals of medical treatment: In my family meeting of 02/08/17, and parents were quite emphatic that in spite of the patient's poor prognosis for meaningful neurologic recovery, the patient would continue to want full aggressive care including tracheostomy and PEG tube placement. Mother , in particular, is emphatic and speaks of the large number of people praying for her recovery. == Pain: Patient currently has orders for scheduled hydrocodone and prn fentanyl. These appear to be adequate. It is hard to distinguish pain from agitation in this patient. Given that we want to prevent over-sedation agree that we should avoid increasing scheduled opiates at this time. No further recommendations at this time. == Dyspnea: Had been tolerating CPAP trials, failed on 02/09, but tolerated C Pap once again on 02/10/17. No further recommendations at this time. Even if patient is able to wean from vent, she will need airway protection . == Encephalopathy: Encephalopathy is quite dense. Given minimal recovery to date, extent of brain injury, and MRI results of 02/06/17, chances of meaningful neurological recovery are looking bleak. == Disposition: Family would like patient to be moved to the [facility] for post-acute care if she survives to discharge. and children are living in the [place] area. == As noted above, I personally telephoned Dr. Murphy and he has agreed to speak directly with patient's to answer questions and provide additional information regarding prognosis. == Palliative care will continue to follow to assist with symptom management and to further clarify goals of medical treatment as the clinical course evolves. . Attestation To help prompt me to consider important information that might be impacting today's encounter and assessment, information from prior notes written by myself or my colleagues may have been "brought forward" into today's note. My signature on this note, however, is an attestation that I personally performed the exam, history, and/or decision-making noted today, and, unless otherwise indicated, the interactions with patient, family, and staff as well as the review of records all occurred today. I also attest that the listed assessment and stated plan reflect my best clinical judgment today based on the combination of historical information, prior notes, and today's exam/ interactions. When time spent is documented, it refers only to time spent today by the signer, or if indicated, combined time spent today by collaborating physician/nurse practitioner. . Maxi Zelaya MD Feb 10, 2017 20:20
[2017-02-11] VITALS (17 sets, daily range): BP systolic 120–138; BP diastolic 56–71; PULSE 82–108; RESP 14–19; TEMP 98.6–102.6; O2SAT 100
[2017-02-11] MEDS: CEFEPIME INJ 2,000 MG in SODIUM CHLORIDE 0.9% INJ 100 ML IV SCH ×3 (01:37→16:14)
[2017-02-11] MEDS: SODIUM CHLOR 0.9% 1000 ML INJ 1,000 ML IV SCH ×2 (02:45→21:25)
--- NOTE | 2017-02-11 05:48 | RADRPT ---
EXAM DATE/TIME: 02/11/2017 05:17 [facility] COMPARISON: CHEST SINGLE AP, February 08, 2017, 10:29. INDICATIONS : Short of breath. MEDICAL HISTORY : None. SURGICAL HISTORY : Craniotomy. ENCOUNTER: Subsequent ACUITY: 2 weeks PAIN SCORE: Non-responsive. LOCATION: Bilateral chest FINDINGS: Right pigtail catheter overlies the right lung apex. I do not see a pneumothorax. The lungs are clear . Endotracheal tube tip at the inferior margin of clavicles. NG tube tip obscured by overlying EKG le ads. Heart size normal. CONCLUSION: Clear lungs. Pierre Holt MD on February 11, 2017 at 5:46 Board Certified Radiologist. This report was verified electronically.
[2017-02-11] MEDS: ACETAMINOPHEN 325 MG TAB PO PRN ×2 (06:21→16:14)
[2017-02-11 06:50] LABS: BICARBONATE 21.3 MEQ/L (21.0-32.0); POTASSIUM 5.6 MEQ/L (3.5-5.1)
[2017-02-11] MEDS ORDERED: PHARMACY ORDERED LAB ONE (07:45)
[2017-02-11] MEDS: BISACODYL 10 MG SUPP RECTAL SCH (08:16)
[2017-02-11] MEDS: DOCUSATE SODIUM 50 MG/SENNA 8.6 MG TAB PO SCH ×2 (08:16→20:27)
[2017-02-11] MEDS: FAMOTIDINE 20 MG TAB NG SCH ×2 (08:16→20:27)
[2017-02-11] MEDS: SODIUM CHLORIDE 1 GRAM TAB PO SCH (08:16)
[2017-02-11] MEDS: VALPROIC ACID SYRUP 250 MG/5 ML UDC PO SCH (08:16)
[2017-02-11] MEDS: AMANTADINE HCL SOLN 100 MG/10 ML UDC NG SCH (08:16)
[2017-02-11] MEDS: CHLORHEXIDINE 0.12% (ORAL KIT) 15 ML CUP MT SCH ×2 (08:17→20:00)
[2017-02-11] MEDS: SODIUM CHLORIDE 0.9% FLUSH 10 ML FLUSH IV FLUSH SCH ×2 (08:17→20:27)
[2017-02-11] MEDS: BACITRACIN TOP OINT 15 GM TUBE TOPICAL SCH ×2 (08:17→20:27)
[2017-02-11 09:16] LABS: HEMATOCRIT 23.3 % (35.0-46.0); MEAN CELL VOLUME 91.1 FL (80.0-100.0); MEAN CORPUSCULAR HEMOGLOBIN 30.8 PG (27.0-34.0); MEAN CORPUSCULAR HGB CONC 33.8 % (32.0-36.0); PLATELET COUNT 668 TH/MM3 (150-450); RED BLOOD COUNT 2.56 MIL/MM3 (4.00-5.30); RED CELL DISTRIBUTION WIDTH 16.3 % (11.6-17.2); REVIEW FLAG FINAL; WHITE BLOOD COUNT 8.6 TH/MM3 (4.0-11.0)
[2017-02-11 09:42] LABS: BICARBONATE 29.2 MEQ/L (21.0-32.0); POTASSIUM 3.8 MEQ/L (3.5-5.1)
[2017-02-11] MEDS: VANCOMYCIN INJ 1,250 MG in SODIUM CHLOR 0.9% 250 ML INJ 250 ML IV SCH (10:00)
[2017-02-11] MEDS ORDERED: ROCURONIUM INJ 50 MG/5 ML VIAL IV ONE (10:00)
[2017-02-11] MEDS ORDERED: PROPOFOL 200 MG/20 ML AMP IV ONE (10:59)
--- NOTE | 2017-02-11 11:10 | HHI.PR ---
Neuropsych Emotional Emotional: UnabletoAssess: Emotional, Anxious/Fearful, Depressed/Sad, Hostile/ Resentful, Irritable/Angry/Frustrate, Labile, Constricted/Blunted Behavior Behavior: Unable to Asses: Behavior, Coping/Acceptance, Cooperative w/ Treatment, Motivation, Frustration Tolerance/[place], Impulsive/Agitated, Suicidal/ Homicidal Risk Cognitive Cognitive: Unable to Asses: Cognitive, Attention/Concentration, Confused/ Orientation, Insight/Awareness, Judgement/Problem-Solving, Memory Psychosocial Psychosocial: Intact: Psychosocial, Family/Other Adjustment, Severe: Realistic Expectation, Unable to Asses: Self-Esteem/Confidence Progress Notes/Response to Tx Contents of Sessions: Adjustment, Level of Consciousness Time with Patient: 15 minutes Premorbid psychological status Premorbid Cognitive, Emotional and Behavioral Status: Deferred. No family present to ascertain premorbid abilities. Behavioral Reactions of Patient and Family/Support System: Deferred. The patients family is likley experiencing ongoing issues of adjustment given the nature of the injury, and this aspect of recovery will require ongoing monitoring. Emotional/Behavioral Status of Patient and Family/Support System: Deferred. Pertinent issues, if appropriate to this patients clinical care, are described in detail above. Maximizing acute care outcome It is recommended that the patient be monitored for emergent behavioral impulsivity as the medical condition evolves. This patients neuropathological challenges may limit their rehabilitation potential going forward, and these challenges will require specialized therapeutic skills to maximize outcome. Additionally, the patients family is experiencing ongoing issues of adjustment given the traumatic nature of the injury, and they may benefit from ongoing psychological assistance. Anticipated Problems Ongoing areas of concern will include behavioral impulsivity, lack of insight and judgment, which is expected to improve with time and treatment. Presently , the patient unresponsive, intubated and sedated. Treatment Plan This clinician will continue to follow with you throughout the course of this patients acute care treatment, and I will be available to meet with the patient s family/support system to facilitate their understanding and the ongoing care of their family member. The goals of neuropsychological intervention shall be both educational and supportive to the family/support system as is deemed clinically appropriate. [facility] Level: II:General response-total assist Impression This is a 46 year old woman s/p TBI 2T fall on 01/27/2017, with large left temporoparietal SDH, right basal skull fracture through petrous bone with extrusion of brain matter on the right, and is s/p DC/ventriculostomy placement. 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 This is day 14 post injury. Yesterday, I had a long discussion with the patient's and parents about issues of neurocognitive and neurobehavioral recovery in light of the severity of this injury, specifically what the patient may be like 6, 12 and 18+ months post injury, with my opinion being consistent with other medical providers of minimal to no chance for a meaningful recovery in light of the severity of her injuries. The patient remains at a [place] II at best. Trauma team consensus is to d/c Valproic Acid in light of no observable to no increasing agitation/restlessness, holding the Amantadine at 100 qD today, with likelihood of increasing dose to BID tomorrow. I will continue to follow and to provide family support. Luis Murphy PhD Feb 11, 2017 11:10 am
[2017-02-11] MEDS: FLUCONAZOLE 400 MG PREMIX BAG 200 ML IV SCH (11:19)
--- NOTE | 2017-02-11 11:21 | HHI.GIFU ---
Subjective Remarks PEG tube inserted today with EGD. EGD findings normal. No hiatal hernia. Excellent indentation and transillumination. No apparent complication. Objective Vitals I&O Vital Signs Date Time Temp Pulse Resp B/P Pulse Ox O2 Delivery O2 Flow Rate FiO2 02/11/17 10:00 98 02/11/17 08:38 40 02/11/17 08:37 100 40 02/11/17 08:00 89 02/11/17 08:00 40 02/11/17 08:00 100.4 89 19 120/56 100 02/11/17 06:00 89 02/11/17 04:08 100 40 02/11/17 04:00 99.5 89 14 122/60 100 02/11/17 04:00 40 02/11/17 04:00 89 02/11/17 02:00 94 02/11/17 00:00 90 02/11/17 00:00 99.7 96 16 127/71 100 02/11/17 00:00 40 02/10/17 23:32 99 40 02/10/17 22:00 99 02/10/17 21:06 100 40 02/10/17 20:00 101.3 98 14 115/53 100 02/10/17 20:00 40 02/10/17 20:00 100 02/10/17 18:00 96 02/10/17 16:00 40 02/10/17 16:00 99.1 102 29 126/58 97 02/10/17 16:00 102 02/10/17 15:39 97 40 02/10/17 14:00 111 02/10/17 12:00 103 02/10/17 12:00 40 02/10/17 12:00 100.9 103 21 111/53 100 I/O 02/10/17 02/10/17 02/10/17 02/11/17 02/11/17 02/11/17 06:59 14:59 22:59 06:59 14:59 22:59 Intake Total 738 ml 1568 ml 857 ml 777 ml Output Total 800 ml 700 ml 550 ml 450 ml Balance -62 ml 868 ml 307 ml 327 ml Intake IV Total 311 ml 1016 ml 409 ml 652 ml Tube Feeding 227 ml 402 ml 248 ml 65 ml Other 200 ml 150 ml 200 ml 60 ml Output Urine Total 800 ml 700 ml 550 ml 450 ml Chest Tube Drainage Total 0 ml # Bowel Movements 1 1 1 1 Laboratory Laboratory Tests Test 02/10/17 02/11/17 02/11/17 12:01 05:47 09:01 White Blood Count 8.9 8.6 Red Blood Count 2.55 2.56 Hemoglobin 7.9 7.9 Hematocrit 23.3 23.3 Mean Corpuscular Volume 91.4 91.1 Mean Corpuscular Hemoglobin 30.8 30.8 Mean Corpuscular Hemoglobin 33.7 33.8 Concent Red Cell Distribution Width 16.1 16.3 Platelet Count 687 668 Mean Platelet Volume 6.7 6.7 Sodium Level 142 142 142 Potassium Level 3.4 5.6 3.8 Chloride Level 108 110 107 Carbon Dioxide Level 27.1 21.3 29.2 Anion Gap 7 11 6 Blood Urea Nitrogen 19 15 16 Creatinine 0.53 0.46 0.36 Estimat Glomerular Filtration 123 145 192 Rate Random Glucose 125 75 94 Calcium Level 7.6 8.5 8.0 Vancomycin Level Trough 17.9 Date/Time Procedure Status Source Growth 02/06/17 18:40 Gram Stain - Final Complete Sputum Endotracheal 02/06/17 18:40 Sputum Culture - Final Complete Sputum Endotracheal HEAVY GROWTH NORMAL RESPIRATORY LIZ 02/06/17 14:38 Urine Culture - Final Complete Urine Catheterized Urine Cindy Tropicalis Physical Exam HEENT: Pupils round and reactive to light; normocephalic; atraumatic; no jaundice. Throat is clear. NECK: Neck is supple, no JVD, no lymphadenopathy. CHEST: Chest is clear to auscultation and percussion. CARDIAC: Regular rate and rhythm with no murmur gallop or rubs. ABDOMEN: Soft, nondistended, nontender; no hepatosplenomegaly; bowel sounds are present in all four quadrants. EXTREMITIES: No clubbing, cyanosis, or edema. SKIN: Normal; no rash; no jaundice. OXYACETYLENE WELDER: No focal deficits; alert and oriented times three. Assessment and Plan Plan ASSESSMENT - dysphagia - brought as trauma alert, found to have SDH s/p craniectomy and ventriculostomy, [facility] and trach tomorrow. D/w pt's , he is agreeable PEG placed on 02/11. No apparent complication. No hiatal hernia. PLAN - OK to use PEG tube for meds and flush with water. - OK to use PEG for tube feeds tomorrow if stable. Eric Justice MD Feb 11, 2017 11:21
[2017-02-11] MEDS ORDERED: MIDAZOLAM HCL 5 MG/ML VIAL (1 ML) ONE (13:13)
--- NOTE | 2017-02-11 13:47 | HHI.NSPN ---
(Marques MorenoCash CHRIS) History Chief Complaint: Unable to obtain due to clinical condition. (Marques Moreno) Interval History 01/27: Patient is a middle-aged female who according to her family fell through a garage ceiling landing on the floor one-story down. Positive loss of consciousness. Patient was reportedly unresponsive immediately after the event. No seizure activity reported. She was GCS 3-4 at the scene and brought to [facility] emergency room as a trauma alert per EMS. She was intubated in the emergency room. She was noted to have a fixed dilated left pupil and pinpoint right pupil in the emergency room on initial evaluation. The undersigned reviewed the patient's CT scan images shortly after completion while the patient was in the CT scanning suite. Images revealed a large left hemispheric acute subdural hematoma with approximate 16 mm midline shift, significant effacement of the left ventricle and cisterns. Patient was taken emergently to the operating room from the CT scanning suite. 01/28: The patient is intubated and mechanically ventilated with propofol & fentanyl for sedation. She is on norepinephrine for blood pressure support which Nursing states she is titrating down. Nursing also reported that the patient did squeeze with her hands this morning. The patient was transfused this morning for a haemoglobin of 7.4. 01/29: The patient remains intubated and mechanically ventilated. The propofol & fentanyl drips have been off since 929 this morning. She is no longer on any vasopressors. Saline 3% is infusing. Nursing states she is withdrawing but has not had any eye opening. ICP has been running 4 to 5 on the ventriculostomy per Nursing and that the bolt pressure is not being used since it was reportedly not in proper position. Nursing also reports excessive drainage from the ventriculostomy. 01/30: Patient intubated on minimal sedation. Not opening eyes to verbal or tactile stimulation 01/31: Patient remains intubated on minimal sedation. At this point she is opening her eyes and tracking to verbal stimulation. 02/01: The patient continues to be intubated and mechanically ventilated. The fentanyl was discontinued this morning.Nursing reported that the left pupil appeared slightly larger this morning and that the ventriculostomy ICP has been ranging between 5 and 10. 02/02: The patient is still intubated and mechanically ventilated. She remains off any sedation. Nursing reported that she did follow commands to move the right hand once yesterday. When an EEG was done yesterday the tech reported to Nursing that there was fresh blood to the right side of the head. 02/03: The patient remains intubated and mechanically ventilated. She is noted to be moving the right side extremities spontaneously. Nursing reports that she also was withdrawing on the left to noxious stimuli. The Patient Support Assistant is preparing to replace the chest tube. The patient did spike a temperature to 103.1 yesterday afternoon. 02/04: The patient is still intubated and mechanically ventilated. She is moving the right lower extremity spontaneously. Nursing reports no response to stimuli with the left upper extremity, otherwise she is withdrawing still. The ventriculostomy was withdrawn yesterday due to Gram variable rods noted on the Gram stain off the CSF specimen sent for culture when she spiked her temperature on . 8/5: intubated, sedation off. not opening eyes or following command. withdraws x 4. 8/6: MRI Brain completed yesterday, otherwise no changes to neuro checks overnight 02/08: When seen this morning the patient was intubated and mechanically ventilated. She was not on any drips for sedation. Respiratory was present in the room and was going to place her on CPAP. 02/09: The patient remains intubated and mechanically ventilated when seen this afternoon. Nursing reports that the patient failed a CPAP trial and went apneic. The plan is to do a trach tomorrow according to Nursing. 02/10: This afternoon the patient is intubated and on CPAP. 02/11: The patient is sedated when seen due to having a tracheostomy done at the bedside just prior to her being seen. During the morning the patient also had a PEG tube done at the bedside. (Marques Moreno) System Review Comments Unable to obtain due to clinical condition. (Marques Moreno) Exam Results Vital Signs Date Time Temp Pulse Resp B/P Pulse Ox O2 Delivery O2 Flow Rate FiO2 02/11/17 12:00 99.7 82 14 124/58 100 02/11/17 12:00 100 Intake and Output 02/10/17 02/10/17 02/11/17 08:00 16:00 00:00 Intake Total 738 ml 1568 ml 857 ml Output Total 800 ml 700 ml 550 ml Balance -62 ml 868 ml 307 ml (Marques Moreno) Physical Examination GENERAL: The patient is trached and mechanically ventilated, still sedated from trach being done. SKIN: Skin warm & dry. Multiple abrasions & ecchymosis to extremities healing w/ o complication. No rashes or other lesions noted. HEENT: Well approximated left-sided craniotomy, w/o any evident drainage, erythema or streaking. Flap soft. Slight clear yellow drainage but none purulent from the insertion site at the flap, no erythema or streaking noted. PERRLA. NECK: No JVD, trachea midline, trached. CARDIOVASCULAR: S1S2 w/RRR w/o M/G/R, radial & pedal pulses 2+ bilaterally, cap refill < 2 sec, no pedal edema. Monitor is sinus rhythm w/o any ectopy noted. RESPIRATORY: CTAB w/o W/R/R, equal excursion, nonlaboured, trached and mechanically ventilated. GASTROINTESTINAL: Abdomen soft, bowel sounds not appreciated, PEG tube clamped. MUSCULOSKELETAL: Scattered abrasions & ecchymosis. No evident deformities or clubbing. NEUROLOGICAL: GCS 6T (E1 V1T M4). No eye opening to voice & noxious stimuli. PERRLA 3mm slightly sluggish. Does not follow any commands, no spontaneous movement noted, withdraws to localised noxious stimulus BLE, no repsonse to localised or central noxious stimuli w/BUE. Unable to assess sensation. (Marques Moreno) Lab, Micro, Other Results Allergies Coded Allergies Type Severity Reaction Last Updated Verified No Known Allergies 01/31/17 No Recent Impressions Chest X-Ray 02/11/17 0600 Signed Impressions: Service Date/Time: February 05:17 - CONCLUSION: Clear lungs. Pierre Holt MD Head CT 02/10/17 0600 Signed Impressions: Service Date/Time: Friday, February 10, 2017 04:19 - CONCLUSION: 1. 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 2. Bilateral temporal hypodensities are stable. Pierre Holt MD / 06:00 18:00 06:00 18:00 06:00 18:00 Intake Total 1704 ml 759 ml 1662 ml 1568 ml 1634 ml Output Total 0 ml 0 ml 2450 ml 700 ml 1000 ml Balance 1704 ml 759 ml -788 ml 868 ml 634 ml Intake IV Total 992 ml 639 ml 784 ml 1016 ml 1061 ml Tube Feeding 532 ml 478 ml 402 ml 313 ml Tube Irrigant 120 ml Other 180 ml 400 ml 150 ml 260 ml Output Urine Total 2450 ml 700 ml 1000 ml Chest Tube Drainage Total 0 ml 0 ml 0 ml 0 ml # Voids 5 4 # Bowel Movements 4 4 1 1 2 Laboratory Tests Test 02/09/17 02/09/17 02/10/17 02/11/17 04:04 18:42 12:01 05:47 White Blood Count 18.1 TH/MM3 8.9 TH/MM3 Red Blood Count 3.19 MIL/MM3 2.55 MIL/MM3 Hemoglobin 9.7 GM/DL 7.9 GM/DL Hematocrit 28.9 % 23.3 % Mean Corpuscular Volume 90.5 FL 91.4 FL Mean Corpuscular Hemoglobin 30.4 PG 30.8 PG Mean Corpuscular Hemoglobin 33.6 % 33.7 % Concent Red Cell Distribution Width 16.5 % 16.1 % Platelet Count 632 TH/MM3 687 TH/MM3 Mean Platelet Volume 7.6 FL 6.7 FL Sodium Level 139 MEQ/L 142 MEQ/L 142 MEQ/L Potassium Level 4.1 MEQ/L 3.4 MEQ/L 5.6 MEQ/L Chloride Level 103 MEQ/L 108 MEQ/L 110 MEQ/L Carbon Dioxide Level 24.7 MEQ/L 27.1 MEQ/L 21.3 MEQ/L Anion Gap 11 MEQ/L 7 MEQ/L 11 MEQ/L Blood Urea Nitrogen 19 MG/DL 19 MG/DL 15 MG/DL Creatinine 0.70 MG/DL 0.53 MG/DL 0.46 MG/DL Estimat Glomerular Filtration 89 ML/MIN 123 ML/MIN 145 ML/MIN Rate Random Glucose 101 MG/DL 125 MG/DL 75 MG/DL Calcium Level 8.2 MG/DL 7.6 MG/DL 8.5 MG/DL Vancomycin Level Trough 21.3 MCG/ML 17.9 MCG/ML Test 02/11/17 09:01 White Blood Count 8.6 TH/MM3 Red Blood Count 2.56 MIL/MM3 Hemoglobin 7.9 GM/DL Hematocrit 23.3 % Mean Corpuscular Volume 91.1 FL Mean Corpuscular Hemoglobin 30.8 PG Mean Corpuscular Hemoglobin 33.8 % Concent Red Cell Distribution Width 16.3 % Platelet Count 668 TH/MM3 Mean Platelet Volume 6.7 FL Sodium Level 142 MEQ/L Potassium Level 3.8 MEQ/L Chloride Level 107 MEQ/L Carbon Dioxide Level 29.2 MEQ/L Anion Gap 6 MEQ/L Blood Urea Nitrogen 16 MG/DL Creatinine 0.36 MG/DL Estimat Glomerular Filtration 192 ML/MIN Rate Random Glucose 94 MG/DL Calcium Level 8.0 MG/DL Vital Signs Date Time Temp Pulse Resp B/P Pulse Ox O2 Delivery O2 Flow Rate FiO2 02/11/17 12:00 99.7 82 14 124/58 100 02/11/17 12:00 100 02/11/17 12:00 82 02/11/17 10:00 98 02/11/17 08:38 40 02/11/17 08:37 100 40 02/11/17 08:00 89 02/11/17 08:00 40 02/11/17 08:00 100.4 89 19 120/56 100 02/11/17 06:00 89 02/11/17 04:08 100 40 02/11/17 04:00 99.5 89 14 122/60 100 02/11/17 04:00 40 02/11/17 04:00 89 02/11/17 02:00 94 02/11/17 00:00 90 02/11/17 00:00 99.7 96 16 127/71 100 02/11/17 00:00 40 02/10/17 23:32 99 40 02/10/17 22:00 99 02/10/17 21:06 100 40 02/10/17 20:00 101.3 98 14 115/53 100 02/10/17 20:00 40 02/10/17 20:00 100 02/10/17 18:00 96 02/10/17 16:00 40 02/10/17 16:00 99.1 102 29 126/58 97 02/10/17 16:00 102 02/10/17 15:39 97 40 02/10/17 14:00 111 02/10/17 12:00 103 02/10/17 12:00 40 02/10/17 12:00 100.9 103 21 111/53 100 02/10/17 11:12 100 40 02/10/17 10:00 106 02/10/17 08:11 100 40 02/10/17 08:11 40 02/10/17 08:00 102 02/10/17 08:00 99.7 102 17 132/60 100 02/10/17 08:00 40 02/10/17 06:00 107 02/10/17 04:30 100 40 02/10/17 04:02 100 100 02/10/17 04:00 99 02/10/17 04:00 102.6 99 13 126/58 100 02/10/17 04:00 40 02/10/17 02:00 102 02/10/17 00:20 100 40 02/10/17 00:00 40 02/10/17 00:00 98.7 104 17 123/59 100 02/10/17 00:00 104 02/09/17 22:00 95 02/09/17 20:12 100 40 02/09/17 20:00 40 02/09/17 20:00 104 02/09/17 20:00 99.5 104 14 119/54 98 02/09/17 18:00 112 02/09/17 16:03 100 40 02/09/17 16:00 102.7 114 19 123/58 100 02/09/17 16:00 114 02/09/17 16:00 40 02/09/17 14:00 101 02/09/17 12:00 99.8 102 16 133/60 100 02/09/17 12:00 40 02/09/17 12:00 102 02/09/17 11:48 100 40 02/09/17 10:00 96 02/09/17 08:00 100.1 92 15 125/57 100 02/09/17 08:00 92 02/09/17 08:00 40 02/09/17 07:48 40 02/09/17 07:41 100 40 02/09/17 06:00 108 02/09/17 04:18 100 40 02/09/17 04:00 104 02/09/17 04:00 40 02/09/17 04:00 102.9 110 20 125/57 100 02/09/17 02:00 104 02/09/17 00:59 100 40 02/09/17 00:00 99.6 110 20 125/57 100 02/09/17 00:00 40 02/09/17 00:00 100 02/08/17 22:00 102 02/08/17 21:00 99 40 02/08/17 20:00 99.3 106 16 148/63 98 02/08/17 20:00 106 02/08/17 18:00 102 02/08/17 16:00 40 02/08/17 16:00 108 02/08/17 16:00 102.2 108 16 120/59 100 02/08/17 15:44 100 40 02/08/17 14:00 107 (Marques Moreno) Medical Decision Making Impression and Plan Impression: 1. Severe acute left hemisphere subdural hematoma with severe midline shift and mass effect. 2. Right temporal bone fracture-nondisplaced Leukocytosis, resolved Anaemia,stable (7.9=>7.9) Thrombocytosis, interval decrease (687=>668) Thrombocytopenia, resolved Sodium 142 Hypokalemia, interval resolution (3.4=>5.6=>3.8) eGFR WNL Hypophosphatemia,resolved CT brain demonstrates no significant change in the left SDH or the right temporal lobe low attenuation region compared to . MRI brain demonstrates some residual left SDH to occipital region & posterior fossa, bilateral temporal lobe contusions & scattered SAH, with a minimal right to left shift. There are multiple haemosiderin deposits noted on susceptibility weighted images over both convexities and the left lateral. 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 T max 101.3 yesterday afternoon. Patient with stable put poor neurological response. POD #15 () s/p: 1. Left decompressive frontotemporoparietal craniotomy for evacuation of acute subdural hematoma. 2. Left frontal ventriculostomy catheter placement 3. Left frontal twist drill for intracranial pressure monitor placement Plan: Primary management per Patient Support Assistant/Trauma. Frequent neuro checks. Stat CT brain for worsening neuro status. Daily sodium level, maintain sodium in 145-153 range. Continuing ventilatory support and full sedation. Seizure prophylaxis. Ulcer prophylaxis. Continue non chemical DVT prophylaxis. Okay for Lovenox. (Marques Moreno) Attending Statement The exam, history, and the medical decision-making described in the above note were completed with the assistance of the mid-level provider. I reviewed and agree with the findings presented. I attest that I had a [id number] encounter with the patient on the same day, and personally performed and documented my assessment and findings in the medical record. No change in examination today. Mild eye-opening No response to command Mild left greater than right upper extremity motor movement Small amount of drainage from the ventriculostomy site which has been sutured today. Continuing ventilatory support. No overall improvement in neurologic function past few days (Nic Bahena MD) Marques Moreno Feb 11, 2017 13:47 Nic Bahena MD Feb 11, 2017 14:00
--- NOTE | 2017-02-11 14:28 | HHI.CCPN ---
Subjective Brief History severe traumatic brain injury. [place] coma scale 3. Large left temporoparietal subdural hematoma, right basal skull fracture through the petrous bone with extrusion of some brain matter on the right, fracture of the right scapula, left superior inferior ramus pubic fracture with minimal displacement and a right sacral fracture. Patient will be taken immediately to the operating room. Patient underwent a left frontotemporal craniectomy with evacuation of subdural hematoma and placement of ventriculostomy Orthopedic consult was obtained and no further operative management will be instituted 24 Hour Review/Hospital Course Patient has been in the ICU overnight intubated and ventilated 01/29/17 Neurologic status is unchanged ICP remains low Pupils are equal about 2 mm and somewhat reactive Patient remains on propofol fentanyl Hypertonic 3% saline at 30 cc/h Keppra No clinical suspicion of seizures 01/30/17 Patient is withdrawing all 4 extremities and localizes and opened her eyes ICP remains low around 8 mmHg Removed from propofol and fentanyl or any form of sedation Sodium 158 and hypertonic saline removed Remains intubated and ventilated and starting to pickup on her own the rate 01/31 open eyes spontaneously-move extremities ICP around 10 mmHg ventriculostomy 110cc/8hrs tolerating CPAP 02/01/17 ICP remains low around 8-10 mmHg Probably ventriculostomy can be safely removed soon as per neurosurgery Patient opening eyes and trying to follow some commands moves both lower extremities and right arm but very little in the left arm Patient is definitely neurologically improving Tolerated CPAP for about 4 hours 02/02/17 Patient neurologically unchanged. Opens eyes to sternal rub and moves all 4 extremities right more than left as described yesterday Does not follow commands Repeat CT scan shows evolving parietal trauma with edema however no new changes EEG consistent with encephalopathy and no seizures Patient is on Keppra and valproic acid. In this case valproic acid has been added by neuropsychology for unrelated reasons ICP remains around 8-9 mmHg and ventriculostomy is a 10 cm Will be probably able to remove either ICP bolt, ventriculostomy or both soon as per neurosurgery 02/04/17 Neurologically slightly improved patient's opening eyes Moves extremities but left side is clearly weaker than the right Right chest drain in position however still apical pneumothorax which is enlarging and we'll place another anterior drain Patient spiked fever to 103 yesterday Triple-lumen removed Venous ultrasound did not reveal any deep venous thrombosis in the arm or the shoulder girdle Patient doing well at this time continue antibiotics 02/05/17 off sedation slowly emerging CXR stable-keep drain on suction 02/06 sodium 141 hgb 11 moving all 4 extremities CXR no PTX NS cleared for lovenox 02/07/17 MRI shows BARBY clinically slowly emerging 02/08/17 patient reached a plateau palliative discussion with family they wish to proceed with peg/trach 02/09/17 febrile 102.9 wbc 18 CSF /urine cultures noted ID managing tolearing CPAP-but not extubatable due to mental status 02/10/17 No change in neurologic status Patient is moving all 4 extremities but left side is weaker than the right No change in level of consciousness precluding extubation Discussed with family through palliative care and directly and the want everything done This patient has a very poor prognosis as far as neurologic recovery is concerned and will require tracheostomy and PEG at this time which are scheduled for tomorrow 02/11/17 No change in neurologic status Patient opening eyes spontaneously coughing and gagging moving all 4 extremities No following commands For tracheostomy today Objective Vital Signs Date Time Temp Pulse Resp B/P Pulse Ox O2 Delivery O2 Flow Rate FiO2 02/11/17 13:30 100 100 02/11/17 12:00 99.7 82 14 124/58 Intake and Output 02/10/17 02/10/17 02/11/17 08:00 16:00 00:00 Intake Total 738 ml 1568 ml 857 ml Output Total 800 ml 700 ml 550 ml Balance -62 ml 868 ml 307 ml Result Diagram: 02/11/17 0901 02/11/17 0901 Imaging Last 24 hours Impressions Chest X-Ray 02/11/17 0600 Signed Impressions: Service Date/Time: February 05:17 - CONCLUSION: Clear lungs. Pierre Holt MD Exam [employer] Neurologic status unchanged GCS 6-7 Hemodynamic/Cardiac Hemodynamically intact Pulmonary/Respiratory Bilateral breath sounds and in order to wean the ventilator patient will need tracheostomy Tracheostomy Blue Rhino performed today Abdomen/GI Nutrition Abdomen soft Renal/I&O Good urine output normal renal function Assessment and Plan Plan neuro status same HD stable CT right to waterseal one CT removed continue tube feeds start SBT- abx for + CSF culture will insert zhong in light of febrile episodes,exact I&O s and protect perineal skin form break down - will plan for trach next 48 hrs Attestation Patient now had tracheostomy and PEG Wean off the ventilator Critical care 35 minutes Noemy Philip MD Feb 11, 2017 14:28
--- NOTE | 2017-02-11 14:43 | HHI.IDPN ---
Subjective Subjective Remarks Patient is a 46-year-old female admitted as a trauma alert. She was apparently working in her house in the garage ceiling and she felt improved some of the rafters, and landed on her head. She was found to have significant traumatic brain injury, and also had some other fracture including scapular fracture and in the pelvic region. The orthopedic injuries were all being treated conservatively. She had significant eye murmur out to on her imaging study of the brain, and underwent emergent surgery on her brain for evacuation of the significant epidural hematoma, placement of a bolt, as well as a ventriculostomy. She has remained on the vent. She was on Unasyn since January 29. Starting February 01 she started having fevers, and no cultures were ordered. CSF culture is showing gram-variable segun on the Gram stain of the broth but it did not grow on culture media. She has been started on cefepime and vancomycin. Patient also has a chest tube for pneumothorax. Her chest x-ray has shown stable findings. Urinalysis unremarkable. She has a central line in the right IJ. Notes reviewed D/W RN Still with intermittent fevers Just had trach and PEG Nothing new on C/S Antibiotics Vancomycin Cefepime Diflucan Lines PIV Past Medical History None Allergies: Coded Allergies: No Known Allergies (Unverified , 01/31/17) per Objective . Vital Signs Date Time Temp Pulse Resp B/P Pulse Ox O2 Delivery O2 Flow Rate FiO2 02/11/17 14:00 107 02/11/17 13:30 100 100 02/11/17 12:00 99.7 82 14 124/58 100 02/11/17 12:00 100 02/11/17 12:00 82 02/11/17 10:00 98 02/11/17 08:38 40 02/11/17 08:37 100 40 02/11/17 08:00 89 02/11/17 08:00 40 02/11/17 08:00 100.4 89 19 120/56 100 02/11/17 06:00 89 02/11/17 04:08 100 40 02/11/17 04:00 99.5 89 14 122/60 100 02/11/17 04:00 40 02/11/17 04:00 89 02/11/17 02:00 94 02/11/17 00:00 90 02/11/17 00:00 99.7 96 16 127/71 100 02/11/17 00:00 40 02/10/17 23:32 99 40 02/10/17 22:00 99 02/10/17 21:06 100 40 02/10/17 20:00 101.3 98 14 115/53 100 02/10/17 20:00 40 02/10/17 20:00 100 02/10/17 18:00 96 02/10/17 16:00 40 02/10/17 16:00 99.1 102 29 126/58 97 02/10/17 16:00 102 02/10/17 15:39 97 40 02/10/17 02/10/17 02/11/17 14:59 22:59 06:59 Intake Total 1568 ml 857 ml 777 ml Output Total 700 ml 550 ml 450 ml Balance 868 ml 307 ml 327 ml Intake IV Total 1016 ml 409 ml 652 ml Tube Feeding 402 ml 248 ml 65 ml Other 150 ml 200 ml 60 ml Output Urine Total 700 ml 550 ml 450 ml Chest Tube Drainage Total 0 ml # Bowel Movements 1 1 1 . Laboratory Tests Test 02/10/17 02/11/17 12:01 09:01 White Blood Count 8.9 TH/MM3 8.6 TH/MM3 Red Blood Count 2.55 MIL/MM3 2.56 MIL/MM3 Hemoglobin 7.9 GM/DL 7.9 GM/DL Hematocrit 23.3 % 23.3 % Mean Corpuscular Volume 91.4 FL 91.1 FL Mean Corpuscular Hemoglobin 30.8 PG 30.8 PG Mean Corpuscular Hemoglobin 33.7 % 33.8 % Concent Red Cell Distribution Width 16.1 % 16.3 % Platelet Count 687 TH/MM3 668 TH/MM3 Mean Platelet Volume 6.7 FL 6.7 FL Laboratory Tests Test 02/10/17 02/11/17 02/11/17 12:01 05:47 09:01 Sodium Level 142 MEQ/L 142 MEQ/L 142 MEQ/L Potassium Level 3.4 MEQ/L 5.6 MEQ/L 3.8 MEQ/L Chloride Level 108 MEQ/L 110 MEQ/L 107 MEQ/L Carbon Dioxide Level 27.1 MEQ/L 21.3 MEQ/L 29.2 MEQ/L Anion Gap 7 MEQ/L 11 MEQ/L 6 MEQ/L Blood Urea Nitrogen 19 MG/DL 15 MG/DL 16 MG/DL Creatinine 0.53 MG/DL 0.46 MG/DL 0.36 MG/DL Estimat Glomerular Filtration 123 ML/MIN 145 ML/MIN 192 ML/MIN Rate Random Glucose 125 MG/DL 75 MG/DL 94 MG/DL Calcium Level 7.6 MG/DL 8.5 MG/DL 8.0 MG/DL Imaging Chest X-Ray 02/11/17 0600 Signed Impressions: Service Date/Time: February 05:17 - CONCLUSION: Clear lungs. Pierre Holt MD Head CT 02/10/17 0600 Signed Impressions: Service Date/Time: Friday, February 10, 2017 04:19 - CONCLUSION: 1. 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 2. Bilateral temporal hypodensities are stable. Pierre Holt MD Chest X-Ray 02/05/17 06 Signed Impressions: Service Date/Time: Sunday, February 05, 2017 05:29 - CONCLUSION: 1. There is no evidence of pneumothorax. Luis Angel Bullock MD Head CT 02/04/17 0600 Signed Impressions: Service Date/Time: February 04:39 - CONCLUSION: 1. Study is moderately degraded by streak and motion artifact limiting sensitivity. 2. Interval removal of the previously noted ventricular shunt catheter. 3. The low attenuation region in the right temporal lobe is no significant change. 4. No significant change in the left subdural hematoma. Kalin Tate MD Upper Extremity Ultrasound 02/04/17 0000 Signed Impressions: Service Date/Time: February 07:52 - CONCLUSION: No DVT is identified. Please note that portions of the basilic and cephalic vein are not visualized. Emerson Mariee MD Hand X-Ray 02/02/17 0000 Signed Impressions: Service Date/Time: Thursday, February 02, 2017 14:00 - CONCLUSION: No acute left hand abnormality is identified. Emerson Mariee MD Thoracic Spine CT 01/27/17 1700 Signed Impressions: Service Date/Time: Friday, January 27, 2017 17:20 - CONCLUSION: 1. No fracture or subluxation. 2. Minimal subcutaneous emphysema seen within the upper neck likely related to patient's temporal bone fracture. Eb Guerin MD Pelvis X-Ray [id number]/27/171699 Signed Impressions: Service Date/Time: Friday, January 27, 2017 16:54 - CONCLUSION: 1. Left pubic rami fractures. Otoniel Crain MD Lumbar Spine CT 01/27/171699 Signed Impressions: Service Date/Time: Friday, January 27, 2017 17:20 - CONCLUSION: 1. No fracture or subluxation of the lumbar spine. 2. There are fractures of the right sacrum discussed in detail on CT the abdomen/pelvis. Eb Guerin MD Chest CT 01/27/171699 Signed Impressions: Service Date/Time: Friday, January 27, 2017 17:25 - CONCLUSION: 1. Comminuted fracture involving the right scapula. 2. Minimal posterior atelectatic changes bilaterally. Juan Carlos Jc MD Cervical Spine CT 01/27/171699 Signed Impressions: Service Date/Time: Friday, January 27, 2017 17:24 - CONCLUSION: 1. No acute fracture or prevertebral soft tissue swelling. 2. Straightening of the normal cervical lordosis. 3. Cervical spondylosis from C3 through C6. 4. Mild bilateral foraminal narrowing at C3-4, C4-5 and C5-6. Juan Carlos Jc MD Abdomen/Pelvis CT 01/27/171699 Signed Impressions: Service Date/Time: Friday, January 27, 2017 17:25 - CONCLUSION: 1. Acute fractures along the right sacrum as well as the left superior and inferior pubic rami. 2. No intra-abdominal trauma identified. Juan Carlos Jc MD Radius/Ulna X-Ray 01/27/17 0000 Signed Impressions: Service Date/Time: Friday, January 27, 2017 16:54 - CONCLUSION: Soft tissue swelling involving the right mid forearm without underlying radial or ulnar fracture. Juan Carlos Jc MD Physical Exam GENERAL: Comfortable on vent, not on sedation, no interaction SKIN: Warm and dry. No generalized rash HEAD: Incision L side of head is dry, no redness or drainage. Previous tubes site in scalp dry EYES: [place] conjunctiva. No petechia or hemorrhage. Pupils equal, round and reactive to light. No scleral icterus. No injection or drainage. EARS, NOSE AND THROAT: Nose without bleeding or purulent nasal discharge. NECK: Trachea midline. Supple and not tender, no meningeal signs. Trach ok CARDIOVASCULAR: Regular rate and rhythm. No murmurs, rubs or gallops heard RESPIRATORY: 2 CT sites ok. Decreased breath sounds at the bases ABDOMEN: Soft, nondistended, No reaction to deep palpation. Bowel sounds present and normoactive. No organomegaly. Intact dressing over PEG EXTREMITIES: No clubbing, cyanosis, or joint effusion. Mild pedal edema. Hands edematous. Well perfused and warm. NEUROLOGICAL: No interaction PSYCHIATRIC: Unable to assess LINE: No evidence of infection : Sanchez in place urine looks ok Assessment & Plan Remarks IMPRESSION New fevers, possible sepsis, source? intermittent fevers - Continues to have fevers - ?VAP - has line - ?CSF - has Acinetobacter and Bacillus; repeat negative; ?significance, ? colonization TBI, with epidural hematoma S/P OR, has bolt and EVD Respiratory failure Leukocytosis, resolved - CXR negative - nothing new on C/S RECOMMENDATION Follow C/S Follow CBC Continue Vancomycin and Cefepime - will give until 12/18 Continue Diflucan, give 7 days Monitor temp Monitor progress D/W Ai Santana MD Feb 11, 2017 14:43
[2017-02-11] MEDS ORDERED: MIDAZOLAM HCL 5 MG/ML VIAL (1 ML) IV PUSH ONE (16:15)
[2017-02-11] MEDS: VANCOMYCIN 1,000 MG/NS 250 ML IV SCH ×2 (21:15)
--- NOTE | 2017-02-11 21:21 | HHI.HCPN ---
Reason for visit a. To assist with evaluation and management of symptoms including: pain; dyspnea; encephalopathy b. To assist medical decision maker(s) with: better understanding of current medical conditions; weighing benefits/burdens of medical treatment options; making medical treatment decisions. . Subjective/Interval History Patient had PEG tube placed by GI shortly before my visit today. Patient is still under sedation. Primary nurse reports that patient was tolerating her C Pap trials prior to going back on the ventilator for her procedure. Per primary nurse, there is no evidence of neurologic improvement. Patient tolerated the PEG tube placement without complications. She received propofol and midazolam for her PEG tube placement. Nursing pain level assessments have shown pain levels of 0. No use of the ordered hydrocodone since 02/04/17. I spoke with Dr. Murphy who has connected with patient's and now helping with education regarding traumatic brain injuries, coma, prognosis, etc. . . Family/friend interactions No interactions with family/friends today. . Advance Directives Living Will: Never completed Health Care Surrogate: Never completed Durable Power of Sanitation Superintendent: Never completed Advance Directive Specifics Date completed: No advance directive completed. . Health Care Surrogate(s): No advance directive completed. . Documented care wishes: No written documentation of health care preferences / goals. . Objective Vital Signs Date Time Temp Pulse Resp B/P Pulse Ox O2 Delivery O2 Flow Rate FiO2 02/11/17 20:49 100 40 02/11/17 20:00 90 02/11/17 20:00 100 02/11/17 18:30 100 40 02/11/17 18:00 97 02/11/17 16:00 100 02/11/17 16:00 108 02/11/17 16:00 102.6 108 18 138/66 100 02/11/17 14:00 107 02/11/17 13:30 100 100 02/11/17 12:00 99.7 82 14 124/58 100 02/11/17 12:00 100 02/11/17 12:00 82 02/11/17 10:00 98 02/11/17 08:38 40 02/11/17 08:37 100 40 02/11/17 08:00 89 02/11/17 08:00 40 02/11/17 08:00 100.4 89 19 120/56 100 02/11/17 06:00 89 02/11/17 04:08 100 40 02/11/17 04:00 99.5 89 14 122/60 100 02/11/17 04:00 40 02/11/17 04:00 89 02/11/17 02:00 94 02/11/17 00:00 90 02/11/17 00:00 99.7 96 16 127/71 100 02/11/17 00:00 40 02/10/17 23:32 99 40 02/10/17 22:00 99 Intake & Output 02/11/17 02/11/17 07:00 19:00 Intake Total 1634 ml 876 ml Output Total 1000 ml 650 ml Balance 634 ml 226 ml Intake IV Total 1061 ml 816 ml Tube Feeding 313 ml 0 ml Other 260 ml 60 ml Output Urine Total 1000 ml 650 ml # Bowel Movements 2 2 . Physical Exam CONSTITUTIONAL/GENERAL: This is an adequately nourished patient, intubated, minimally responsive in an SICU bed. Recently sedated for her PEG tube placement. TUBES/LINES/DRAINS: Chest tube (right sided) ; peripheral iv; orotracheal tube ; orogastric tube; soft wrist restraints; PEG tube SKIN: No jaundice, rashes, or lesions. Ecchymoses on upper extremities. No wounds seen anteriorly. Skin temperature appropriate. Not diaphoretic. HEAD: Healing left craniotomy wound (no bone flap) EYES: Pupils equal and round. Not tracking. No scleral icterus. No injection or drainage. Fundi not examined. ENT: Unable to assess hearing -- does not respond to voice. Nose without bleeding or purulent drainage. Throat without visible erythema, exudates, masses , or lesions though difficult to assess due to intubations. NECK: Trachea midline. CARDIOVASCULAR: Regular rate and rhythm without murmurs, gallops, or rubs. No JVD. Peripheral pulses symmetric. RESPIRATORY/CHEST: Symmetric, unlabored respirations. Clear to auscultation. Breath sounds equal bilaterally. No wheezes, rales, or rhonchi. GASTROINTESTINAL: PEG tube was just place.Did not examine abdomen. GENITOURINARY: Not examined MUSCULOSKELETAL: Extremities without clubbing, cyanosis, or edema. No mottling. LYMPHATICS: Not examined. NEUROLOGICAL: Sedated for procedure. No spontaneous movements during my visit.. Withdraws all 4 extremities to noxious stimuli. Does not awaken to voice or exam. Unable to follow commands. PSYCHIATRIC: Unable to assess due to level of responsiveness. . Diagnostic Tests Laboratory Laboratory Tests Test 02/09/17 02/09/17 02/10/17 02/11/17 04:04 18:42 12:01 05:47 White Blood Count 18.1 TH/MM3 8.9 TH/MM3 (4.0-11.0) (4.0-11.0) Red Blood Count 3.19 MIL/MM3 2.55 MIL/MM3 (4.00-5.30) (4.00-5.30) Hemoglobin 9.7 GM/DL 7.9 GM/DL (11.6-15.3) (11.6-15.3) Hematocrit 28.9 % 23.3 % (35.0-46.0) (35.0-46.0) Mean Corpuscular Volume 90.5 FL 91.4 FL (80.0-100.0) (80.0-100.0) Mean Corpuscular Hemoglobin 30.4 PG 30.8 PG (27.0-34.0) (27.0-34.0) Mean Corpuscular Hemoglobin 33.6 % 33.7 % Concent (32.0-36.0) (32.0-36.0) Red Cell Distribution Width 16.5 % 16.1 % (11.6-17.2) (11.6-17.2) Platelet Count 632 TH/MM3 687 TH/MM3 (150-450) (150-450) Mean Platelet Volume 7.6 FL 6.7 FL (7.0-11.0) (7.0-11.0) Sodium Level 139 MEQ/L 142 MEQ/L 142 MEQ/L (136-145) (136-145) (136-145) Potassium Level 4.1 MEQ/L 3.4 MEQ/L 5.6 MEQ/L (3.5-5.1) (3.5-5.1) (3.5-5.1) Chloride Level 103 MEQ/L 108 MEQ/L 110 MEQ/L (98-107) (98-107) (98-107) Carbon Dioxide Level 24.7 MEQ/L 27.1 MEQ/L 21.3 MEQ/L (21.0-32.0) (21.0-32.0) (21.0-32.0) Anion Gap 11 MEQ/L (5-15) 7 MEQ/L (5-15) 11 MEQ/L (5-15) Blood Urea Nitrogen 19 MG/DL (7-18) 19 MG/DL (7-18) 15 MG/DL (7-18) Creatinine 0.70 MG/DL 0.53 MG/DL 0.46 MG/DL (0.50-1.00) (0.50-1.00) (0.50-1.00) Estimat Glomerular Filtration 89 ML/MIN (>89) 123 ML/MIN 145 ML/MIN Rate (>89) (>89) Random Glucose 101 MG/DL 125 MG/DL 75 MG/DL (74-106) (74-106) (74-106) Calcium Level 8.2 MG/DL 7.6 MG/DL 8.5 MG/DL (8.5-10.1) (8.5-10.1) (8.5-10.1) Vancomycin Level Trough 21.3 MCG/ML 17.9 MCG/ML (5.0-10.0) (5.0-10.0) Test 02/11/17 09:01 White Blood Count 8.6 TH/MM3 (4.0-11.0) Red Blood Count 2.56 MIL/MM3 (4.00-5.30) Hemoglobin 7.9 GM/DL (11.6-15.3) Hematocrit 23.3 % (35.0-46.0) Mean Corpuscular Volume 91.1 FL (80.0-100.0) Mean Corpuscular Hemoglobin 30.8 PG (27.0-34.0) Mean Corpuscular Hemoglobin 33.8 % Concent (32.0-36.0) Red Cell Distribution Width 16.3 % (11.6-17.2) Platelet Count 668 TH/MM3 (150-450) Mean Platelet Volume 6.7 FL (7.0-11.0) Sodium Level 142 MEQ/L (136-145) Potassium Level 3.8 MEQ/L (3.5-5.1) Chloride Level 107 MEQ/L (98-107) Carbon Dioxide Level 29.2 MEQ/L (21.0-32.0) Anion Gap 6 MEQ/L (5-15) Blood Urea Nitrogen 16 MG/DL (7-18) Creatinine 0.36 MG/DL (0.50-1.00) Estimat Glomerular Filtration 192 ML/MIN Rate (>89) Random Glucose 94 MG/DL (74-106) Calcium Level 8.0 MG/DL (8.5-10.1) Result Diagram: 02/11/17 0901 02/11/17 09 Imaging Last Impressions Chest X-Ray 02/11/17 06 Signed Impressions: Service Date/Time: February 05:17 - CONCLUSION: Clear lungs. Pierre Holt MD Head CT 02/10/17 0600 Signed Impressions: Service Date/Time: Friday, February 10, 2017 04:19 - CONCLUSION: 1. 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 2. Bilateral temporal hypodensities are stable. Pierre Holt MD Brain MRI 02/06/17 0000 Signed Impressions: Service Date/Time: Monday, February 06, 2017 21:31 - CONCLUSION: 1. Postoperative partial left craniectomy for decompression and evacuation of left subdural hematoma. There is some residual subdural hematoma present predominantly posteriorly in the occipital region and posterior fossa. 2. Bilateral temporal lobe contusions with measurements given above. Scattered subarachnoid hemorrhage. 3. Fluid in the temporal bones bilaterally and in the sphenoid sinus. There minimal right to left midline shift. Multiple hemosiderin deposits noted on the susceptibility weighted images especially over both convexities and on the left side laterally. Juan Bajwa MD Upper Extremity Ultrasound 02/04/17 0000 Signed Impressions: Service Date/Time: February 07:52 - CONCLUSION: No DVT is identified. Please note that portions of the basilic and cephalic vein are not visualized. Emerson Mariee MD Hand X-Ray 02/02/17 0000 Signed Impressions: Service Date/Time: Thursday, February 02, 2017 14:00 - CONCLUSION: No acute left hand abnormality is identified. Emerson Mariee MD Thoracic Spine CT 01/27/17 1700 Signed Impressions: Service Date/Time: Friday, January 27, 2017 17:20 - CONCLUSION: 1. No fracture or subluxation. 2. Minimal subcutaneous emphysema seen within the upper neck likely related to patient's temporal bone fracture. Eb Guerin MD Pelvis X-Ray 01/27/171699 Signed Impressions: Service Date/Time: Wednesday, January 27, 2017 16:54 - CONCLUSION: 1. Left pubic rami fractures. Otoniel Crain MD Lumbar Spine CT 01/27/17 170 Signed Impressions: Service Date/Time: Wednesday, January 27, 2017 17:20 - CONCLUSION: 1. No fracture or subluxation of the lumbar spine. 2. There are fractures of the right sacrum discussed in detail on CT the abdomen/pelvis. Eb Guerin MD Chest CT 01/27/17 170 Signed Impressions: Service Date/Time: Wednesday, January 27, 2017 17:25 - CONCLUSION: 1. Comminuted fracture involving the right scapula. 2. Minimal posterior atelectatic changes bilaterally. Juan Carlos Jc MD Cervical Spine CT 01/27/171699 Signed Impressions: Service Date/Time: Wednesday, January 27, 2017 17:24 - CONCLUSION: 1. No acute fracture or prevertebral soft tissue swelling. 2. Straightening of the normal cervical lordosis. 3. Cervical spondylosis from C3 through C6. 4. Mild bilateral foraminal narrowing at C3-4, C4-5 and C5-6. Juan Carlos Jc MD Abdomen/Pelvis CT 01/27/171699 Signed Impressions: Service Date/Time: Friday, January 27, 2017 17:25 - CONCLUSION: 1. Acute fractures along the right sacrum as well as the left superior and inferior pubic rami. 2. No intra-abdominal trauma identified. Juan Carlos Jc MD Radius/Ulna X-Ray 01/27/17 0000 Signed Impressions: Service Date/Time: Friday, January 27, 2017 16:54 - CONCLUSION: Soft tissue swelling involving the right mid forearm without underlying radial or ulnar fracture. Juan Carlos Jc MD . Procedures * left sided fronto-temporal craniotomy with evacuation of subdural hematoma and placement of ventriculosotmy * Chest tube placement on right * intubation / mechanical ventilation * PEG tube placed 02/11/17 . Assessment and Plan Disease Oriented Problem List: (1) Traumatic brain injury (2) Acute subdural hematoma (3) Basilar skull fracture (4) Major neurocognitive disorder as late effect of traumatic brain injury without behavioral disturbance (5) Fracture of left pelvis (6) Sacral fracture (7) Right scapula fracture (8) Pneumothorax Symptom Scale: (1) Pain 0-10 Scale: Unable to quantify Comment: Sources of pain might include recent head trauma and surgery; prolonged bedbound status; restraints; zhong catheter; orotracheal tube; vascular access catheters. Also, PEG tube placed on 02/11/17. Nurses have not seen evidence of pain. She has not been receiving opiate analgesics. . (2) Dyspnea 0-10 Scale: Unable to quantify Comment: Had been tolerating C Pap trials but on 02/09/17 failed the trial and became apneic. Able to tolerate C Pap trial again on 02/10/17. Will continue to need air-way protection even if she completely weaned from the ventilator. . (3) Encephalopathy 0-10 Scale: Unable to quantify Comment: Non-interactive. Some spontaneous but non-purposeful movements. . Pertinent Non-Medical Issues Psychosocial: , mother of 4. and children living in [place]. Parents live in [place]. Spiritual: Judaism. Sabianism and spirituality are very important to her. Parents have kaley and many people are praying for her. Legal: No written or verbal advance directives. Ethical issues impacting care: Incapacitated. Unlikely to regain capacity. . Important Contacts * Kenny Terrazas (spouse) [phone] * Shiela (mother) [phone] . Prognosis Though patient is relatively young, she has had a very severe traumatic brain injury. There has been minimal neurologic recovery. Her recent MRI from shows evidence of diffuse axonal injury. Though some recovery is feasible, Dr. Bahena sees chances of meaningful neurological recovery to be poor at this time. Critical care and the trauma team are in agreement. If there is going to be any type of improvement it will likely be very slow and take place over many months. . Code Status: Full Code Plan == Code Status: FULL CODE == Decision Making: Patient is incapacitated and is not expected to regain capacity in the foreseeable future, if at all. As there is no written designation of health care surrogate, proxy decision making falls to the patient's . == Goals of medical treatment: In my family meeting of 02/08/17, and parents were quite emphatic that in spite of the patient's poor prognosis for meaningful neurologic recovery, the patient would continue to want full aggressive care including tracheostomy and PEG tube placement. Mother , in particular, is emphatic and speaks of the large number of people praying for her recovery. == Pain: Patient currently has orders for scheduled hydrocodone and prn fentanyl. These appear to be adequate. It is hard to distinguish pain from agitation in this patient. Given that we want to prevent over-sedation agree that we should avoid increasing scheduled opiates at this time. No further recommendations at this time. == Dyspnea: Had been tolerating CPAP trials, failed on 02/09, but tolerated C Pap once again on 02/10/17. No further recommendations at this time. Even if patient is able to wean from vent, she will need airway protection . == Encephalopathy: Encephalopathy is quite dense. Given minimal recovery to date, extent of brain injury, and MRI results of 02/06/17, chances of meaningful neurological recovery are looking bleak. == Disposition: Family would like patient to be moved to the [facility] for post-acute care if she survives to discharge. and children are living in the [place] area. == Dr. Murphy is now involved and will be periodically speaking with and other family members to help with education process regarding traumatic brain injury, coma, and prognosis. == Palliative care will continue to follow to assist with symptom management and to further clarify goals of medical treatment as the clinical course evolves. . Attestation To help prompt me to consider important information that might be impacting today's encounter and assessment, information from prior notes written by myself or my colleagues may have been "brought forward" into today's note. My signature on this note, however, is an attestation that I personally performed the exam, history, and/or decision-making noted today, and, unless otherwise indicated, the interactions with patient, family, and staff as well as the review of records all occurred today. I also attest that the listed assessment and stated plan reflect my best clinical judgment today based on the combination of historical information, prior notes, and today's exam/ interactions. When time spent is documented, it refers only to time spent today by the signer, or if indicated, combined time spent today by collaborating physician/nurse practitioner. . Maxi Zelaya MD Feb 11, 2017 21:21
[2017-02-12] VITALS (18 sets, daily range): BP systolic 107–130; BP diastolic 55–61; PULSE 84–104; RESP 14–21; TEMP 98.8–100.4; O2SAT 100
[2017-02-12] MEDS: CEFEPIME INJ 2,000 MG in SODIUM CHLORIDE 0.9% INJ 100 ML IV SCH ×3 (00:01→17:04)
[2017-02-12] MEDS: ACETAMINOPHEN 325 MG TAB PO PRN ×2 (06:17→17:58)
--- NOTE | 2017-02-12 07:48 | PD.PROCEDR ---
Procedure Note Procedure Note for 02/12/17: DX: Chronic Respiratory Failure OP: Flexible Bronchoscopy (97062) Procedure: Time out performed. Through proximal elbow on ventilator circuit, the bronchoscope was passed. The tracheobronchial tree was mildly inflamed with normal branching anatomy. Minimal secretions, thin, white. The orotracheal tube and scope were withdrawn to the level of the cricoid and allowed for visualization while a separate team inserted the percutaneous tracheostomy tube. Upon insertion the scope was introduced through the new trach tube and good tube position above the dima was confirmed. Ventilation was converted to the new trach tube. Sats were maintained over 90% throughout the procedure. Pako Flores MD Feb 12, 2017 07:47
[2017-02-12] MEDS: CHLORHEXIDINE 0.12% (ORAL KIT) 15 ML CUP MT SCH ×2 (08:00→20:00)
[2017-02-12] MEDS: DOCUSATE SODIUM 50 MG/SENNA 8.6 MG TAB PO SCH ×3 (08:36→20:43)
[2017-02-12] MEDS: SODIUM CHLORIDE 0.9% FLUSH 10 ML FLUSH IV FLUSH SCH ×2 (08:36→20:43)
[2017-02-12] MEDS: AMANTADINE HCL SOLN 100 MG/10 ML UDC NG SCH (08:36)
[2017-02-12] MEDS: BISACODYL 10 MG SUPP RECTAL SCH (08:45)
[2017-02-12] MEDS: BACITRACIN TOP OINT 15 GM TUBE TOPICAL SCH ×2 (08:45→20:43)
[2017-02-12] MEDS: FLUCONAZOLE 400 MG PREMIX BAG 200 ML IV SCH (08:45)
[2017-02-12] MEDS: FAMOTIDINE 20 MG TAB NG SCH ×2 (08:45→20:43)
[2017-02-12] MEDS: SODIUM CHLORIDE 1 GRAM TAB PO SCH (08:45)
--- NOTE | 2017-02-12 10:15 | HHI.IDPN ---
Subjective Subjective Remarks Patient is a 46-year-old female admitted as a trauma alert. She was apparently working in her house in the garage ceiling and she felt improved some of the rafters, and landed on her head. She was found to have significant traumatic brain injury, and also had some other fracture including scapular fracture and in the pelvic region. The orthopedic injuries were all being treated conservatively. She had significant eye murmur out to on her imaging study of the brain, and underwent emergent surgery on her brain for evacuation of the significant epidural hematoma, placement of a bolt, as well as a ventriculostomy. She has remained on the vent. She was on Unasyn since January 29. Starting February 01 she started having fevers, and no cultures were ordered. CSF culture is showing gram-variable segun on the Gram stain of the broth but it did not grow on culture media. She has been started on cefepime and vancomycin. Patient also has a chest tube for pneumothorax. Her chest x-ray has shown stable findings. Urinalysis unremarkable. She has a central line in the right IJ. Notes reviewed Still with intermittent fevers Hemodynamics ok S/P trach and PEG 02/11 Last CXR clear WBC normal Tolerating CPAP Antibiotics Vancomycin Cefepime Diflucan Lines PIV Past Medical History None Allergies: Coded Allergies: No Known Allergies (Unverified , 01/31/17) per Objective . Vital Signs Date Time Temp Pulse Resp B/P Pulse Ox O2 Delivery O2 Flow Rate FiO2 02/12/17 09:23 100 40 02/12/17 08:16 100 40 02/12/17 08:16 40 02/12/17 06:00 99 02/12/17 04:40 100 40 02/12/17 04:00 96 02/12/17 04:00 40 02/12/17 04:00 98.9 97 17 129/60 100 02/12/17 02:00 93 02/12/17 01:33 100 40 02/12/17 00:00 89 02/12/17 00:00 40 02/12/17 00:00 99.0 84 14 107/56 100 02/11/17 22:00 88 02/11/17 20:49 100 40 02/11/17 20:00 90 02/11/17 20:00 98.6 101 18 121/59 100 02/11/17 20:00 40 02/11/17 18:30 100 40 02/11/17 18:00 97 02/11/17 16:00 100 02/11/17 16:00 108 02/11/17 16:00 102.6 108 18 138/66 100 02/11/17 14:00 107 02/11/17 13:30 100 100 02/11/17 12:00 99.7 82 14 124/58 100 02/11/17 12:00 100 02/11/17 12:00 82 02/11/17 02/11/17 02/12/17 15:00 23:00 07:00 Intake Total 876 ml 585 ml 472 ml Output Total 650 ml 500 ml 525 ml Balance 226 ml 85 ml -53 ml Intake IV Total 816 ml 525 ml 412 ml Tube Feeding 0 ml 0 ml 0 ml Other 60 ml 60 ml 60 ml Output Urine Total 650 ml 500 ml 525 ml # Bowel Movements 2 1 1 . Laboratory Tests Test 02/10/17 02/11/17 12:01 09:01 White Blood Count 8.9 TH/MM3 8.6 TH/MM3 Red Blood Count 2.55 MIL/MM3 2.56 MIL/MM3 Hemoglobin 7.9 GM/DL 7.9 GM/DL Hematocrit 23.3 % 23.3 % Mean Corpuscular Volume 91.4 FL 91.1 FL Mean Corpuscular Hemoglobin 30.8 PG 30.8 PG Mean Corpuscular Hemoglobin 33.7 % 33.8 % Concent Red Cell Distribution Width 16.1 % 16.3 % Platelet Count 687 TH/MM3 668 TH/MM3 Mean Platelet Volume 6.7 FL 6.7 FL Laboratory Tests Test 02/10/17 02/11/17 02/11/17 12:01 05:47 09:01 Sodium Level 142 MEQ/L 142 MEQ/L 142 MEQ/L Potassium Level 3.4 MEQ/L 5.6 MEQ/L 3.8 MEQ/L Chloride Level 108 MEQ/L 110 MEQ/L 107 MEQ/L Carbon Dioxide Level 27.1 MEQ/L 21.3 MEQ/L 29.2 MEQ/L Anion Gap 7 MEQ/L 11 MEQ/L 6 MEQ/L Blood Urea Nitrogen 19 MG/DL 15 MG/DL 16 MG/DL Creatinine 0.53 MG/DL 0.46 MG/DL 0.36 MG/DL Estimat Glomerular Filtration 123 ML/MIN 145 ML/MIN 192 ML/MIN Rate Random Glucose 125 MG/DL 75 MG/DL 94 MG/DL Calcium Level 7.6 MG/DL 8.5 MG/DL 8.0 MG/DL Imaging Chest X-Ray 02/11/17599 Signed Impressions: Service Date/Time: February 05:17 - CONCLUSION: Clear lungs. Pierre Holt MD Head CT 02/10/17599 Signed Impressions: Service Date/Time: Friday, February 10, 2017 04:19 - CONCLUSION: 1. 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 2. Bilateral temporal hypodensities are stable. Pierre Holt MD Chest X-Ray 02/05/17599 Signed Impressions: Service Date/Time: Sunday, February 05, 2017 05:29 - CONCLUSION: 1. There is no evidence of pneumothorax. Luis Angel Bullock MD Head CT 02/04/17599 Signed Impressions: Service Date/Time: February 04:39 - CONCLUSION: 1. Study is moderately degraded by streak and motion artifact limiting sensitivity. 2. Interval removal of the previously noted ventricular shunt catheter. 3. The low attenuation region in the right temporal lobe is no significant change. 4. No significant change in the left subdural hematoma. Kalin Tate MD Upper Extremity Ultrasound 02/04/17 0000 Signed Impressions: Service Date/Time: February 07:52 - CONCLUSION: No DVT is identified. Please note that portions of the basilic and cephalic vein are not visualized. Emerson Mariee MD Hand X-Ray 02/02/17 0000 Signed Impressions: Service Date/Time: Thursday, February 02, 2017 14:00 - CONCLUSION: No acute left hand abnormality is identified. Emerson Mariee MD Thoracic Spine CT 01/27/17 170 Signed Impressions: Service Date/Time: Friday, January 27, 2017 17:20 - CONCLUSION: 1. No fracture or subluxation. 2. Minimal subcutaneous emphysema seen within the upper neck likely related to patient's temporal bone fracture. Eb Guerin MD Pelvis X-Ray 01/27/170 Signed Impressions: Service Date/Time: Friday, January 27, 2017 16:54 - CONCLUSION: 1. Left pubic rami fractures. Otoniel Crain MD Lumbar Spine CT 01/27/171699 Signed Impressions: Service Date/Time: Wednesday, January 27, 2017 17:20 - CONCLUSION: 1. No fracture or subluxation of the lumbar spine. 2. There are fractures of the right sacrum discussed in detail on CT the abdomen/pelvis. Eb Guerin MD Chest CT 01/27/171699 Signed Impressions: Service Date/Time: Wednesday, January 27, 2017 17:25 - CONCLUSION: 1. Comminuted fracture involving the right scapula. 2. Minimal posterior atelectatic changes bilaterally. Juan Carlos Jc MD Cervical Spine CT 01/27/171699 Signed Impressions: Service Date/Time: Friday, January 27, 2017 17:24 - CONCLUSION: 1. No acute fracture or prevertebral soft tissue swelling. 2. Straightening of the normal cervical lordosis. 3. Cervical spondylosis from C3 through C6. 4. Mild bilateral foraminal narrowing at C3-4, C4-5 and C5-6. Juan Carlos Jc MD Abdomen/Pelvis CT 01/27/171699 Signed Impressions: Service Date/Time: Friday, January 27, 2017 17:25 - CONCLUSION: 1. Acute fractures along the right sacrum as well as the left superior and inferior pubic rami. 2. No intra-abdominal trauma identified. Juan Carlos Jc MD Radius/Ulna X-Ray 01/27/17 0000 Signed Impressions: Service Date/Time: Friday, January 27, 2017 16:54 - CONCLUSION: Soft tissue swelling involving the right mid forearm without underlying radial or ulnar fracture. Juan Carlos Jc MD Physical Exam GENERAL: Comfortable on vent, on CPAP, not on sedation, no interaction SKIN: Warm and dry. No generalized rash HEAD: Incision L side of head is dry, no redness or drainage. Previous tubes site in scalp dry EYES: [place] conjunctiva. No petechia or hemorrhage. Pupils equal, round and reactive to light. No scleral icterus. No injection or drainage. EARS, NOSE AND THROAT: Nose without bleeding or purulent nasal discharge. NECK: Trachea midline. Supple and not tender, no meningeal signs. Trach ok CARDIOVASCULAR: Regular rate and rhythm. No murmurs, rubs or gallops heard RESPIRATORY: Decreased breath sounds at the bases ABDOMEN: Soft, nondistended, No reaction to deep palpation. Bowel sounds present and normoactive. No organomegaly. Intact dressing over PEG EXTREMITIES: No clubbing, cyanosis, or joint effusion. Mild pedal edema. Well perfused and warm. NEUROLOGICAL: No interaction PSYCHIATRIC: Unable to assess LINE: No evidence of infection : Sanchez in place urine looks ok Assessment & Plan Remarks IMPRESSION Persistent fevers, source? intermittent fevers - Continues to have fevers - last CXR clear - ?CSF - has Acinetobacter and Bacillus; repeat negative; ?significance, ? colonization - ?meds, [employer] fever TBI, with epidural hematoma S/P OR, has bolt and EVD Respiratory failure Leukocytosis, resolved - CXR negative - nothing new on C/S RECOMMENDATION Repeat 2 BC and UA and C/S Follow C/S Continue Vancomycin and Cefepime - will give until 02/17 Continue Diflucan, give 7 days Monitor temp Monitor progress Weaning per CCM Dr Saucedo covering this weekend Ai Montano MD Feb 12, 2017 10:15
[2017-02-12] MEDS: VANCOMYCIN 1,000 MG/NS 250 ML IV SCH ×4 (10:50→20:43)
--- NOTE | 2017-02-12 11:05 | HHI.HCPN ---
Reason for visit a. To assist with evaluation and management of symptoms including: pain; dyspnea; encephalopathy b. To assist medical decision maker(s) with: better understanding of current medical conditions; weighing benefits/burdens of medical treatment options; making medical treatment decisions. . Subjective/Interval History Patient underwent tracheostomy and bronchoscopy this AM without complication. Chest tube is now out. She appears to be resting comfortably at time of my visit. Eyes are open, not tracking. Spontaneous breathing trail under way. Tube feeds were held for today's procedures. No reports of improved neurological status. Tmax 102.6 at 16:00 on 08. Other VS stable. No new lab today. No new imaging today. Nursing pain level assessments have shown pain levels of 0. . Family/friend interactions No family at bedside at time of my visit. . Advance Directives Living Will: Never completed Health Care Surrogate: Never completed Durable Power of Marking Machine Operator: Never completed Advance Directive Specifics Date completed: No advance directive completed. . Health Care Surrogate(s): No advance directive completed. . Documented care wishes: No written documentation of health care preferences / goals. . Objective Vital Signs Date Time Temp Pulse Resp B/P Pulse Ox O2 Delivery O2 Flow Rate FiO2 02/12/17 09:23 100 40 02/12/17 08:16 100 40 02/12/17 08:16 40 02/12/17 06:00 99 02/12/17 04:40 100 40 02/12/17 04:00 96 02/12/17 04:00 40 02/12/17 04:00 98.9 97 17 129/60 100 02/12/17 02:00 93 02/12/17 01:33 100 40 02/12/17 00:00 89 02/12/17 00:00 40 02/12/17 00:00 99.0 84 14 107/56 100 02/11/17 22:00 88 02/11/17 20:49 100 40 02/11/17 20:00 90 02/11/17 20:00 98.6 101 18 121/59 100 02/11/17 20:00 40 02/11/17 18:30 100 40 02/11/17 18:00 97 02/11/17 16:00 100 02/11/17 16:00 108 02/11/17 16:00 102.6 108 18 138/66 100 02/11/17 14:00 107 02/11/17 13:30 100 100 02/11/17 12:00 99.7 82 14 124/58 100 02/11/17 12:00 100 02/11/17 12:00 82 Intake & Output 02/12/17 02/12/17 07:00 19:00 Intake Total 1057 ml Output Total 1025 ml Balance 32 ml Intake IV Total 937 ml Tube Feeding 0 ml Other 120 ml Output Urine Total 1025 ml # Bowel Movements 2 Physical Exam CONSTITUTIONAL/GENERAL: This is an adequately nourished patient, minimally responsive in an SICU bed. Underwent bronchoscopy/tracheostomy earlier today. TUBES/LINES/DRAINS: Peripheral iv; PEG; Trach; soft wrist restraints; SKIN: No jaundice, rashes, or lesions. Ecchymoses on upper extremities. No wounds seen anteriorly. Skin temperature appropriate. Not diaphoretic. HEAD: Healing left craniotomy wound (no bone flap) EYES: Pupils equal and round. Not tracking. No scleral icterus. No injection or drainage. Fundi not examined. ENT: Unable to assess hearing -- does not respond to voice. New tracheostomy site -- no bleeding noted. Nose without bleeding or purulent drainage. Throat without visible erythema, exudates, masses, or lesions . NECK: Trachea midline. CARDIOVASCULAR: Regular rate and rhythm without murmurs, gallops, or rubs. No JVD. Peripheral pulses symmetric. RESPIRATORY/CHEST: Symmetric, unlabored respirations. Clear to auscultation. Breath sounds equal bilaterally. No wheezes, rales, or rhonchi. GASTROINTESTINAL: PEG tube. Abdomen soft. No organomegaly. GENITOURINARY: Not examined MUSCULOSKELETAL: Extremities without clubbing, cyanosis, or edema. No mottling. LYMPHATICS: Not examined. NEUROLOGICAL: No spontaneous movements during my visit.. Eyes open, but does not track. Withdraws all 4 extremities to noxious stimuli. Does not awaken to voice or exam. Unable to follow commands. PSYCHIATRIC: Unable to assess due to level of responsiveness. . Diagnostic Tests Laboratory Laboratory Tests Test 02/09/17 02/10/17 02/11/17 02/11/17 18:42 12:01 05:47 09:01 Vancomycin Level Trough 21.3 MCG/ML 17.9 MCG/ML (5.0-10.0) (5.0-10.0) White Blood Count 8.9 TH/MM3 8.6 TH/MM3 (4.0-11.0) (4.0-11.0) Red Blood Count 2.55 MIL/MM3 2.56 MIL/MM3 (4.00-5.30) (4.00-5.30) Hemoglobin 7.9 GM/DL 7.9 GM/DL (11.6-15.3) (11.6-15.3) Hematocrit 23.3 % 23.3 % (35.0-46.0) (35.0-46.0) Mean Corpuscular Volume 91.4 FL 91.1 FL (80.0-100.0) (80.0-100.0) Mean Corpuscular Hemoglobin 30.8 PG 30.8 PG (27.0-34.0) (27.0-34.0) Mean Corpuscular Hemoglobin 33.7 % 33.8 % Concent (32.0-36.0) (32.0-36.0) Red Cell Distribution Width 16.1 % 16.3 % (11.6-17.2) (11.6-17.2) Platelet Count 687 TH/MM3 668 TH/MM3 (150-450) (150-450) Mean Platelet Volume 6.7 FL 6.7 FL (7.0-11.0) (7.0-11.0) Sodium Level 142 MEQ/L 142 MEQ/L 142 MEQ/L (136-145) (136-145) (136-145) Potassium Level 3.4 MEQ/L 5.6 MEQ/L 3.8 MEQ/L (3.5-5.1) (3.5-5.1) (3.5-5.1) Chloride Level 108 MEQ/L 110 MEQ/L 107 MEQ/L (98-107) (98-107) (98-107) Carbon Dioxide Level 27.1 MEQ/L 21.3 MEQ/L 29.2 MEQ/L (21.0-32.0) (21.0-32.0) (21.0-32.0) Anion Gap 7 MEQ/L (5-15) 11 MEQ/L (5-15) 6 MEQ/L (5-15) Blood Urea Nitrogen 19 MG/DL (7-18) 15 MG/DL (7-18) 16 MG/DL (7-18) Creatinine 0.53 MG/DL 0.46 MG/DL 0.36 MG/DL (0.50-1.00) (0.50-1.00) (0.50-1.00) Estimat Glomerular Filtration 123 ML/MIN 145 ML/MIN 192 ML/MIN Rate (>89) (>89) (>89) Random Glucose 125 MG/DL 75 MG/DL 94 MG/DL (74-106) (74-106) (74-106) Calcium Level 7.6 MG/DL 8.5 MG/DL 8.0 MG/DL (8.5-10.1) (8.5-10.1) (8.5-10.1) . Result Diagram: 02/11/17 0902/11/17 09 Imaging Last Impressions Chest X-Ray 02/11/17 06 Signed Impressions: Service Date/Time: February 05:17 - CONCLUSION: Clear lungs. Pierre Holt MD Head CT 02/10/17 0600 Signed Impressions: Service Date/Time: Friday, February 10, 2017 04:19 - CONCLUSION: 1. 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 2. Bilateral temporal hypodensities are stable. Pierre Holt MD Brain MRI 02/06/17 0000 Signed Impressions: Service Date/Time: Monday, February 06, 2017 21:31 - CONCLUSION: 1. Postoperative partial left craniectomy for decompression and evacuation of left subdural hematoma. There is some residual subdural hematoma present predominantly posteriorly in the occipital region and posterior fossa. 2. Bilateral temporal lobe contusions with measurements given above. Scattered subarachnoid hemorrhage. 3. Fluid in the temporal bones bilaterally and in the sphenoid sinus. There minimal right to left midline shift. Multiple hemosiderin deposits noted on the susceptibility weighted images especially over both convexities and on the left side laterally. Juan Bajwa MD Upper Extremity Ultrasound 02/04/17 0000 Signed Impressions: Service Date/Time: February 07:52 - CONCLUSION: No DVT is identified. Please note that portions of the basilic and cephalic vein are not visualized. Emerson Mariee MD Hand X-Ray 02/02/17 0000 Signed Impressions: Service Date/Time: Thursday, February 02, 2017 14:00 - CONCLUSION: No acute left hand abnormality is identified. Emerson Mariee MD Thoracic Spine CT 01/27/171699 Signed Impressions: Service Date/Time: Friday, January 27, 2017 17:20 - CONCLUSION: 1. No fracture or subluxation. 2. Minimal subcutaneous emphysema seen within the upper neck likely related to patient's temporal bone fracture. Eb Guerin MD Pelvis X-Ray 01/27/171699 Signed Impressions: Service Date/Time: Friday, January 27, 2017 16:54 - CONCLUSION: 1. Left pubic rami fractures. Otoniel Crain MD Lumbar Spine CT 01/27/171699 Signed Impressions: Service Date/Time: Friday, January 27, 2017 17:20 - CONCLUSION: 1. No fracture or subluxation of the lumbar spine. 2. There are fractures of the right sacrum discussed in detail on CT the abdomen/pelvis. Eb Guerin MD Chest CT 01/27/171699 Signed Impressions: Service Date/Time: Friday, January 27, 2017 17:25 - CONCLUSION: 1. Comminuted fracture involving the right scapula. 2. Minimal posterior atelectatic changes bilaterally. Juan Carlos Jc MD Cervical Spine CT 01/27/171699 Signed Impressions: Service Date/Time: Friday, January 27, 2017 17:24 - CONCLUSION: 1. No acute fracture or prevertebral soft tissue swelling. 2. Straightening of the normal cervical lordosis. 3. Cervical spondylosis from C3 through C6. 4. Mild bilateral foraminal narrowing at C3-4, C4-5 and C5-6. Juan Carlos Jc MD Abdomen/Pelvis CT 01/27/171699 Signed Impressions: Service Date/Time: Friday, January 27, 2017 17:25 - CONCLUSION: 1. Acute fractures along the right sacrum as well as the left superior and inferior pubic rami. 2. No intra-abdominal trauma identified. Juan Carlos Jc MD Radius/Ulna X-Ray 01/27/17 0000 Signed Impressions: Service Date/Time: Friday, January 27, 2017 16:54 - CONCLUSION: Soft tissue swelling involving the right mid forearm without underlying radial or ulnar fracture. Juan Carlos Jc MD . Procedures * left sided fronto-temporal craniotomy with evacuation of subdural hematoma and placement of ventriculosotmy * Chest tube placement on right * intubation / mechanical ventilation * PEG tube placed 02/11/17 * Tracheostomoy 02/12/17 * Chest tube removal . . Assessment and Plan Disease Oriented Problem List: (1) Traumatic brain injury (2) Acute subdural hematoma (3) Basilar skull fracture (4) Major neurocognitive disorder as late effect of traumatic brain injury without behavioral disturbance (5) Fracture of left pelvis (6) Sacral fracture (7) Right scapula fracture (8) Pneumothorax Symptom Scale: (1) Pain 0-10 Scale: Unable to quantify Comment: Sources of pain might include recent head trauma and surgery; prolonged bedbound status; restraints; zhong catheter; orotracheal tube; vascular access catheters. Also, PEG tube placed on 02/11/17. Nurses have not seen evidence of pain. She has not been receiving opiate analgesics. . (2) Dyspnea 0-10 Scale: Unable to quantify Comment: Had been tolerating C Pap trials but on 02/09/17 failed the trial and became apneic. Able to tolerate C Pap trial again on 02/10/17. Will continue to need air-way protection even if she completely weaned from the ventilator. . (3) Encephalopathy 0-10 Scale: Unable to quantify Comment: Non-interactive. Some spontaneous but non-purposeful movements. No evidence of significant neuro improvement. . Pertinent Non-Medical Issues Psychosocial: , mother of 4. and children living in [place]. Parents live in [place]. Spiritual: Hoahaoism. Gnosticism and spirituality are very important to her. Parents have kaley and many people are praying for her. Legal: No written or verbal advance directives. Ethical issues impacting care: Incapacitated. Unlikely to regain capacity. . Important Contacts * Kenny Terrazas (spouse) [phone] * Shiela (mother) [phone] . Prognosis Though patient is relatively young, she has had a very severe traumatic brain injury. There has been minimal neurologic recovery. Her MRI from 02/06/17 shows evidence of diffuse axonal injury. Though some recovery is feasible, Dr. Bahena sees chances of meaningful neurological recovery to be poor at this time. Critical care and the trauma team are in agreement. If there is going to be any type of improvement it will likely be very slow and take place over many months. . Code Status: Full Code Plan == Code Status: FULL CODE == Decision Making: Patient is incapacitated and is not expected to regain capacity in the foreseeable future, if at all. As there is no written designation of health care surrogate, proxy decision making falls to the patient's . == Goals of medical treatment: In my family meeting of 02/08/17, and parents were quite emphatic that in spite of the patient's poor prognosis for meaningful neurologic recovery, the patient would continue to want full aggressive care including tracheostomy and PEG tube placement. Mother , in particular, is emphatic and speaks of the large number of people praying for her recovery. == Pain: Patient currently has orders for scheduled hydrocodone and prn fentanyl. These appear to be adequate. It is hard to distinguish pain from agitation in this patient. Given that we want to prevent over-sedation agree that we should avoid increasing scheduled opiates at this time. No further recommendations at this time. == Dyspnea: Had been tolerating CPAP trials, failed on 02/09, but tolerated C Pap once again on 02/10/17. No further recommendations at this time. Even if patient is able to wean from vent, she will need airway protection -- therefore she underwent tracheostomy on 02/12/17. == Encephalopathy: Encephalopathy is quite dense. Given minimal recovery to date, extent of brain injury, and MRI results of 02/06/17, chances of meaningful neurological recovery are looking bleak. == Disposition: Family would like patient to be moved to the [facility] for post-acute care if she survives to discharge. and children are living in the [place] area. == Dr. Murphy is now involved and will be periodically speaking with and other family members to help with education process regarding traumatic brain injury, coma, and prognosis. == Palliative care will continue to follow to assist with symptom management and to further clarify goals of medical treatment as the clinical course evolves. . Attestation To help prompt me to consider important information that might be impacting today's encounter and assessment, information from prior notes written by myself or my colleagues may have been "brought forward" into today's note. My signature on this note, however, is an attestation that I personally performed the exam, history, and/or decision-making noted today, and, unless otherwise indicated, the interactions with patient, family, and staff as well as the review of records all occurred today. I also attest that the listed assessment and stated plan reflect my best clinical judgment today based on the combination of historical information, prior notes, and today's exam/ interactions. When time spent is documented, it refers only to time spent today by the signer, or if indicated, combined time spent today by collaborating physician/nurse practitioner. . Maxi Zelaya MD Feb 12, 2017 11:05
--- NOTE | 2017-02-12 11:40 | HHI.PR ---
Neuropsych Emotional Emotional: UnabletoAssess: Emotional, Anxious/Fearful, Depressed/Sad, Hostile/ Resentful, Irritable/Angry/Frustrate, Labile, Constricted/Blunted Behavior Behavior: Unable to Asses: Behavior, Coping/Acceptance, Cooperative w/ Treatment, Motivation, Frustration Tolerance/Flora, Impulsive/Agitated, Suicidal/ Homicidal Risk Cognitive Cognitive: Unable to Asses: Cognitive, Attention/Concentration, Confused/ Orientation, Insight/Awareness, Judgement/Problem-Solving, Memory Psychosocial Psychosocial: Intact: Psychosocial, Family/Other Adjustment, Severe: Realistic Expectation, Unable to Asses: Self-Esteem/Confidence Progress Notes/Response to Tx Contents of Sessions: Adjustment, Level of Consciousness Time with Patient: 15 minutes Premorbid psychological status Premorbid Cognitive, Emotional and Behavioral Status: Deferred. No family present to ascertain premorbid abilities. Behavioral Reactions of Patient and Family/Support System: Deferred. The patients family is likley experiencing ongoing issues of adjustment given the nature of the injury, and this aspect of recovery will require ongoing monitoring. Emotional/Behavioral Status of Patient and Family/Support System: Deferred. Pertinent issues, if appropriate to this patients clinical care, are described in detail above. Maximizing acute care outcome It is recommended that the patient be monitored for emergent behavioral impulsivity as the medical condition evolves. This patients neuropathological challenges may limit their rehabilitation potential going forward, and these challenges will require specialized therapeutic skills to maximize outcome. Additionally, the patients family is experiencing ongoing issues of adjustment given the traumatic nature of the injury, and they may benefit from ongoing psychological assistance. Anticipated Problems Ongoing areas of concern will include behavioral impulsivity, lack of insight and judgment, which is expected to improve with time and treatment. Presently , the patient unresponsive, intubated and sedated. Treatment Plan This clinician will continue to follow with you throughout the course of this patients acute care treatment, and I will be available to meet with the patient s family/support system to facilitate their understanding and the ongoing care of their family member. The goals of neuropsychological intervention shall be both educational and supportive to the family/support system as is deemed clinically appropriate. [facility] Level: II:General response-total assist Impression This is a 46 year old woman s/p TBI 2T fall on 01/27/2017, with large left temporoparietal SDH, right basal skull fracture through petrous bone with extrusion of brain matter on the right, and is s/p DC/ventriculostomy placement. 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 This is day 15 post injury. The patient has made no neurobehavioral improvement, and remains at a [place] II. Trauma team consensus is to increase her Amantadine to 100 q0700 and 1200. There was no family present today to discuss patient care. I will continue to follow. Luis Murphy PhD Feb 12, 2017 11:40 am
[2017-02-12] MEDS: AMANTADINE HCL SOLN 100 MG/10 ML UDC PO SCH (11:54)
[2017-02-12 12:40] LABS: BACTERIA, URINE RARE /hpf; BLOOD, URINE TRACE (NEG); GLUCOSE,URINE NEG (NEG); KETONE, URINE 80 mg/dL (NEG); MUCUS URINE FEW /lpf (OCC); NITRITE,URINE NEG (NEG); PH, URINE 5.5 (5.0-8.5); TRANSITIONAL EPI CELLS, URINE <1 /hpf; URINE COLOR YELLOW (YELLW/STRAW)
[2017-02-12 12:42] LABS: COMMENT (UR) CATH-CULTURE IND; CULTURE IF INDICATED CATH CULTURE IND
[2017-02-12 13:08] LABS: BLOOD GAS BASE EXCESS 1.5 mmol/L (-2-2); BLOOD GAS CARBOXYHEMOGLOBIN 1.4 % (0-4); BLOOD GAS HCO3 25 mmol/L (22-26); BLOOD GAS METHEMOGLOBIN 0.8 % (0-2); BLOOD GAS O2 HGB SATURATION 97 % (90-100); BLOOD GAS OXYGEN CONTENT 9.9 Vol % (12.0-20.0); BLOOD GAS PCO2 38 mmHg (38-42); BLOOD GAS PO2 142 mmHg (61-120); CRITICAL VALUE NO; OXYGEN DEVICE MASK; TEMP CORR TO 98.6
[2017-02-12 13:09] LABS: DRAW SITE RT RADIAL; FIO2 40 %; NUMBER OF ARTERIAL PUNCTURES 1; STAT NO; ULNAR PULSE PRESENT
--- NOTE | 2017-02-12 15:33 | HHI.CCPN ---
Subjective Brief History severe traumatic brain injury. Yoandy coma scale 3. Large left temporoparietal subdural hematoma, right basal skull fracture through the petrous bone with extrusion of some brain matter on the right, fracture of the right scapula, left superior inferior ramus pubic fracture with minimal displacement and a right sacral fracture. Patient will be taken immediately to the operating room. Patient underwent a left frontotemporal craniectomy with evacuation of subdural hematoma and placement of ventriculostomy Orthopedic consult was obtained and no further operative management will be instituted 24 Hour Review/Hospital Course Patient has been in the ICU overnight intubated and ventilated 01/29/17 Neurologic status is unchanged ICP remains low Pupils are equal about 2 mm and somewhat reactive Patient remains on propofol fentanyl Hypertonic 3% saline at 30 cc/h Keppra No clinical suspicion of seizures 01/30/17 Patient is withdrawing all 4 extremities and localizes and opened her eyes ICP remains low around 8 mmHg Removed from propofol and fentanyl or any form of sedation Sodium 158 and hypertonic saline removed Remains intubated and ventilated and starting to pickup on her own the rate 01/31 open eyes spontaneously-move extremities ICP around 10 mmHg ventriculostomy 110cc/8hrs tolerating CPAP 02/01/17 ICP remains low around 8-10 mmHg Probably ventriculostomy can be safely removed soon as per neurosurgery Patient opening eyes and trying to follow some commands moves both lower extremities and right arm but very little in the left arm Patient is definitely neurologically improving Tolerated CPAP for about 4 hours 02/02/17 Patient neurologically unchanged. Opens eyes to sternal rub and moves all 4 extremities right more than left as described yesterday Does not follow commands Repeat CT scan shows evolving parietal trauma with edema however no new changes EEG consistent with encephalopathy and no seizures Patient is on Keppra and valproic acid. In this case valproic acid has been added by neuropsychology for unrelated reasons ICP remains around 8-9 mmHg and ventriculostomy is a 10 cm Will be probably able to remove either ICP bolt, ventriculostomy or both soon as per neurosurgery 02/04/17 Neurologically slightly improved patient's opening eyes Moves extremities but left side is clearly weaker than the right Right chest drain in position however still apical pneumothorax which is enlarging and we'll place another anterior drain Patient spiked fever to 103 yesterday Triple-lumen removed Venous ultrasound did not reveal any deep venous thrombosis in the arm or the shoulder girdle Patient doing well at this time continue antibiotics 02/05/17 off sedation slowly emerging CXR stable-keep drain on suction 02/06 sodium 141 hgb 11 moving all 4 extremities CXR no PTX NS cleared for lovenox 02/07/17 MRI shows BARBY clinically slowly emerging 02/08/17 patient reached a plateau palliative discussion with family they wish to proceed with peg/trach 02/09/17 febrile 102.9 wbc 18 CSF /urine cultures noted ID managing tolearing CPAP-but not extubatable due to mental status 02/10/17 No change in neurologic status Patient is moving all 4 extremities but left side is weaker than the right No change in level of consciousness precluding extubation Discussed with family through palliative care and directly and the want everything done This patient has a very poor prognosis as far as neurologic recovery is concerned and will require tracheostomy and PEG at this time which are scheduled for tomorrow 02/11/17 No change in neurologic status Patient opening eyes spontaneously coughing and gagging moving all 4 extremities No following commands For tracheostomy today 02/12/17 No change in neurologic status patient is moving both sides of her body but does not follow commands Opens eyes Tracheostomy placed successfully yesterday We'll wean patient to separate from the ventilator Patient is at this point ready to go to LTAC whenever bed is available Objective Vital Signs Date Time Temp Pulse Resp B/P Pulse Ox O2 Delivery O2 Flow Rate FiO2 02/12/17 12:00 84 02/12/17 11:56 100 Trach Collar 40 02/12/17 08:00 99.3 14 115/55 Intake and Output 02/11/17 02/11/17 02/11/17 07:59 15:59 23:59 Intake Total 777 ml 876 ml 585 ml Output Total 450 ml 650 ml 500 ml Balance 327 ml 226 ml 85 ml Result Diagram: 02/11/17 0901 02/11/17 09 Other Results Laboratory Tests Test 02/12/17 12:50 Blood Gas Puncture Site RT RADIAL Blood Gas Patient Temperature 98.6 Blood Gas HCO3 25 mmol/L (22-26) Blood Gas Base Excess 1.5 mmol/L (-2-2) Blood Gas Oxygen Saturation 97 % (90-100) Arterial Blood pH 7.44 (7.380-7.420) Arterial Blood Partial 38 mmHg (38-42) Pressure CO2 Arterial Blood Partial 142 mmHg Pressure O2 (61-120) Arterial Blood Oxygen Content 9.9 Vol % (12.0-20.0) Arterial Blood 1.4 % (0-4) Carboxyhemoglobin Arterial Blood Methemoglobin 0.8 % (0-2) Blood Gas Hemoglobin 7.0 G/DL (12.0-16.0) Oxygen Delivery Device MASK Blood Gas Inspired Oxygen 40 % Exam PIT SLAGMAN No change in neurologic status Hemodynamic/Cardiac Hemodynamically remains stable Pulmonary/Respiratory Bilateral breath sounds Abdomen/GI Nutrition Abdomen soft we'll start enteral feeds through the PEG Assessment and Plan Plan neuro status same HD stable CT right to waterseal one CT removed continue tube feeds start SBT- abx for + CSF culture will insert zhong in light of febrile episodes,exact I&O s and protect perineal skin form break down - will plan for trach next 48 hrs Attestation Critical care time 38 minutes Noemy Philip MD Feb 12, 2017 15:33
--- NOTE | 2017-02-12 15:52 | MP ---
cc: NOEMY GARZA MD DATE OF SURGERY: 02/11/2017 PREOPERATIVE DIAGNOSIS Traumatic brain injury, respiratory failure. POSTOPERATIVE DIAGNOSIS Traumatic brain injury, respiratory failure. OPERATIVE PROCEDURE Blue Rhino tracheostomy. SURGEON Dr. Garza. ASSEMBLER DC FIELD YOKE Dr. Flores. ANESTHESIA Fentanyl and Versed. ESTIMATED BLOOD LOSS Minimal. PROCEDURE The patient was prepped and draped in usual fashion. The patient is given 50 mg of Rocuronium, Versed and fentanyl. The area was infiltrated with 1% Xylocaine. Incision is made in anterior neck, deepened down to the level of the trachea under bronchoscopy. Angiocath was inserted into the trachea and through this the guidewire is introduced. Over the guidewire the punch dilator is placed to be followed by the Blue Rhino dilator and now the 8 Shiley tracheostomy cannula is placed over the guide and then guide is withdrawn. Cannula connected to the ventilator, end-tidal CO2 checked and returns are normal. Sutured in place with 2-0 Prolene and then secured with a band around the neck. One more bronchoscopy was performed. The patient tolerated the procedure well. Noemy WINKLER/SORAYAL /2:48 PM /3:35 PM
--- NOTE | 2017-02-12 17:05 | HHI.GIFU ---
Subjective Remarks Tolerating TF. Objective Vitals I&O Vital Signs Date Time Temp Pulse Resp B/P Pulse Ox O2 Delivery O2 Flow Rate FiO2 02/12/17 14:00 92 02/12/17 12:00 98.8 84 21 120/60 100 02/12/17 12:00 84 02/12/17 12:00 26 02/12/17 11:56 100 Trach Collar 40 02/12/17 10:00 84 02/12/17 09:23 100 40 02/12/17 08:16 100 40 02/12/17 08:16 40 02/12/17 08:00 84 02/12/17 08:00 40 02/12/17 08:00 99.3 84 14 115/55 100 02/12/17 06:00 99 02/12/17 04:40 100 40 02/12/17 04:00 96 02/12/17 04:00 40 02/12/17 04:00 98.9 97 17 129/60 100 02/12/17 02:00 93 02/12/17 01:33 100 40 02/12/17 00:00 89 02/12/17 00:00 40 02/12/17 00:00 99.0 84 14 107/56 100 02/11/17 22:00 88 02/11/17 20:49 100 40 02/11/17 20:00 90 02/11/17 20:00 98.6 101 18 121/59 100 02/11/17 20:00 40 02/11/17 18:30 100 40 02/11/17 18:00 97 I/O 02/11/17 02/11/17 02/11/17 02/12/17 02/12/17 02/12/17 06:59 14:59 22:59 06:59 14:59 22:59 Intake Total 777 ml 876 ml 585 ml 472 ml 1010 ml Output Total 450 ml 650 ml 500 ml 525 ml 700 ml Balance 327 ml 226 ml 85 ml -53 ml 310 ml Intake IV Total 652 ml 816 ml 525 ml 412 ml 870 ml Tube Feeding 65 ml 0 ml 0 ml 0 ml 40 ml Other 60 ml 60 ml 60 ml 60 ml 100 ml Output Urine Total 450 ml 650 ml 500 ml 525 ml 700 ml # Bowel Movements 1 2 1 1 0 Laboratory Laboratory Tests Test 02/12/17 02/12/17 11:22 12:50 Urine Color YELLOW Urine Turbidity CLEAR Urine pH 5.5 Urine Specific [place] 1.026 Urine Protein 30 Urine Glucose (UA) NEG Urine Ketones 80 Urine Occult Blood TRACE Urine Nitrite NEG Urine Bilirubin NEG Urine Urobilinogen LESS THAN 2.0 Urine Leukocyte Esterase NEG Urine RBC 5 Urine WBC 4 Urine Transitional Epithelial <1 Cells Urine Bacteria RARE Urine Mucus FEW Microscopic Urinalysis Comment CATH-CULTURE IND Blood Gas Puncture Site RT RADIAL Blood Gas Patient Temperature 98.6 Blood Gas HCO3 25 Blood Gas Base Excess 1.5 Blood Gas Oxygen Saturation 97 Arterial Blood pH 7.44 Arterial Blood Partial 38 Pressure CO2 Arterial Blood Partial 142 Pressure O2 Arterial Blood Oxygen Content 9.9 Arterial Blood 1.4 Carboxyhemoglobin Arterial Blood Methemoglobin 0.8 Blood Gas Hemoglobin 7.0 Oxygen Delivery Device MASK Blood Gas Inspired Oxygen 40 Date/Time Procedure Status Source Growth 02/12/17 11:22 Urine Culture Received Urine Clean Catch Pending Physical Exam HEENT: normocephalic; atraumatic; no jaundice. CHEST: CTA CARDIAC: RRR ABDOMEN: Soft, nondistended, nontender; no hepatosplenomegaly; bowel sounds are present in all four quadrants. peg site free of redness, purulence EXTREMITIES: No clubbing, cyanosis, + edema BUE SKIN: no rash; no jaundice. 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 No apparent complication. No hiatal hernia. tolerating TF PLAN - continue TF - supportive care - GI will sign off, please reconsult if needed This pt seen by myself and Dr Justice and this note is written on his behalf Donna Banks Feb 12, 2017 17:05
[2017-02-12] MEDS: SODIUM CHLOR 0.9% 1000 ML INJ 1,000 ML IV SCH (18:51)
--- NOTE | 2017-02-12 20:19 | HHI.NSPN ---
History Chief Complaint: Unable to obtain due to clinical condition. Interval History Status post left decompressive craniotomy evacuation large acute subdural hematoma with approximately 16 mm shift 01/27/17. 02/03/17 ventriculostomy catheter removed 02/04/17 ICP monitor bolt removed Exam Results Vital Signs Date Time Temp Pulse Resp B/P Pulse Ox O2 Delivery O2 Flow Rate FiO2 02/12/17 18:00 95 02/12/17 16:00 26 02/12/17 16:00 100.4 20 130/60 100 02/12/17 11:56 Trach Collar Intake and Output 02/11/17 02/11/17 02/12/17 08:00 16:00 00:00 Intake Total 777 ml 876 ml 585 ml Output Total 450 ml 650 ml 500 ml Balance 327 ml 226 ml 85 ml Physical Examination GENERAL: The patient is trached and mechanically ventilated SKIN: Skin warm & dry. Multiple abrasions healing well HEENT: Well approximated left-sided craniotomy, w/o any evident drainage, erythema or streaking. Flap soft. NECK: No JVD, trachea midline, tracheostomy in place CARDIOVASCULAR: S1S2 w/RRR w/o M/G/R, radial & pedal pulses 2+ bilaterally, cap refill < 2 sec, no pedal edema. Monitor is sinus rhythm w/o any ectopy noted. RESPIRATORY: CTAB w/o W/R/R, equal excursion, nonlaboured, trached and mechanically ventilated. GASTROINTESTINAL: Abdomen soft, bowel sounds not appreciated, PEG tube clamped. MUSCULOSKELETAL: Scattered abrasions & ecchymosis. No evident deformities or clubbing. NEUROLOGICAL: GCS 6T (E1 V1T M4). Good spontaneous eye opening. Does not track to voice or deep pain Mild conjugate oculocephalic responses PERRLA 3mm slightly sluggish. Does not follow any commands, no spontaneous movement noted, minimal upper extremity flexion to deep pain Medical Decision Making Impression and Plan Impression: 1. Stable neurologic exam following left craniotomy evacuation large acute subdural hematoma. Level of consciousness minimally improved over the last week. Plan: Continue ventilatory support Follow-up CT scan early next week depending on clinical course Continue ISC neurologic checks and monitoring Continue follow sodium level to keep 145-153 range Lovenox DVT prophylaxis Nic Bahena MD Feb 12, 2017 20:18
[2017-02-13] VITALS (13 sets, daily range): BP systolic 111–149; BP diastolic 56–71; PULSE 86–106; RESP 14–27; TEMP 98.2–101.8; O2SAT 98–100
[2017-02-13] MEDS: ENOXAPARIN SODIUM 30 MG/0.3 ML SYRINGE SQ SCH ×2 (00:59→13:43)
[2017-02-13] MEDS: CEFEPIME INJ 2,000 MG in SODIUM CHLORIDE 0.9% INJ 100 ML IV SCH ×3 (00:59→16:53)
[2017-02-13] MEDS: ACETAMINOPHEN 325 MG TAB PO PRN ×3 (02:08→23:04)
[2017-02-13 05:45] LABS: HEMATOCRIT 22.8 % (35.0-46.0); MEAN CELL VOLUME 90.3 FL (80.0-100.0); MEAN CORPUSCULAR HEMOGLOBIN 31.4 PG (27.0-34.0); MEAN CORPUSCULAR HGB CONC 34.8 % (32.0-36.0); PLATELET COUNT 611 TH/MM3 (150-450); RED BLOOD COUNT 2.52 MIL/MM3 (4.00-5.30); RED CELL DISTRIBUTION WIDTH 15.7 % (11.6-17.2); REVIEW FLAG FINAL; WHITE BLOOD COUNT 8.1 TH/MM3 (4.0-11.0)
[2017-02-13 05:59] LABS: BICARBONATE 28.2 MEQ/L (21.0-32.0); POTASSIUM 3.1 MEQ/L (3.5-5.1)
[2017-02-13] MEDS: AMANTADINE HCL SOLN 100 MG/10 ML UDC NG SCH (07:33)
[2017-02-13] MEDS: BISACODYL 10 MG SUPP RECTAL SCH (07:34)
[2017-02-13] MEDS: DOCUSATE SODIUM 50 MG/SENNA 8.6 MG TAB PO SCH ×2 (07:34→20:03)
[2017-02-13] MEDS: FAMOTIDINE 20 MG TAB NG SCH ×2 (07:34→20:00)
[2017-02-13] MEDS: SODIUM CHLORIDE 0.9% FLUSH 10 ML FLUSH IV FLUSH SCH ×2 (07:35→20:04)
[2017-02-13] MEDS: BACITRACIN TOP OINT 15 GM TUBE TOPICAL SCH ×2 (07:35→20:04)
[2017-02-13] MEDS: CHLORHEXIDINE 0.12% (ORAL KIT) 15 ML CUP MT SCH ×2 (07:35→20:04)
[2017-02-13] MEDS: ACETAMINOPHEN/HYDROcodone 325 MG/5 MG TAB PO PRN (08:25)
[2017-02-13] MEDS: SODIUM CHLORIDE 1 GRAM TAB PO SCH (08:34)
[2017-02-13] MEDS ORDERED: PHARMACY ORDERED LAB ONE (09:45)
[2017-02-13] MEDS: FLUCONAZOLE 400 MG PREMIX BAG 200 ML IV SCH (10:21)
[2017-02-13] MEDS: VANCOMYCIN 1,000 MG/NS 250 ML IV SCH ×4 (10:21→16:53)
--- NOTE | 2017-02-13 12:06 | HHI.NSPN ---
(Marques MorenoCash CHRIS) History Chief Complaint: Unable to obtain due to clinical condition. (Marques Moreno) Interval History 01/27: Patient is a middle-aged female who according to her family fell through a garage ceiling landing on the floor one-story down. Positive loss of consciousness. Patient was reportedly unresponsive immediately after the event. No seizure activity reported. She was GCS 3-4 at the scene and brought to [facility] emergency room as a trauma alert per EMS. She was intubated in the emergency room. She was noted to have a fixed dilated left pupil and pinpoint right pupil in the emergency room on initial evaluation. The undersigned reviewed the patient's CT scan images shortly after completion while the patient was in the CT scanning suite. Images revealed a large left hemispheric acute subdural hematoma with approximate 16 mm midline shift, significant effacement of the left ventricle and cisterns. Patient was taken emergently to the operating room from the CT scanning suite. 01/28: The patient is intubated and mechanically ventilated with propofol & fentanyl for sedation. She is on norepinephrine for blood pressure support which Nursing states she is titrating down. Nursing also reported that the patient did squeeze with her hands this morning. The patient was transfused this morning for a haemoglobin of 7.4. 01/29: The patient remains intubated and mechanically ventilated. The propofol & fentanyl drips have been off since 929 this morning. She is no longer on any vasopressors. Saline 3% is infusing. Nursing states she is withdrawing but has not had any eye opening. ICP has been running 4 to 5 on the ventriculostomy per Nursing and that the bolt pressure is not being used since it was reportedly not in proper position. Nursing also reports excessive drainage from the ventriculostomy. 01/30: Patient intubated on minimal sedation. Not opening eyes to verbal or tactile stimulation 01/31: Patient remains intubated on minimal sedation. At this point she is opening her eyes and tracking to verbal stimulation. 02/01: The patient continues to be intubated and mechanically ventilated. The fentanyl was discontinued this morning.Nursing reported that the left pupil appeared slightly larger this morning and that the ventriculostomy ICP has been ranging between 5 and 10. 02/02: The patient is still intubated and mechanically ventilated. She remains off any sedation. Nursing reported that she did follow commands to move the right hand once yesterday. When an EEG was done yesterday the tech reported to Nursing that there was fresh blood to the right side of the head. 02/03: The patient remains intubated and mechanically ventilated. She is noted to be moving the right side extremities spontaneously. Nursing reports that she also was withdrawing on the left to noxious stimuli. The Wide Area Network Administrator is preparing to replace the chest tube. The patient did spike a temperature to 103.1 yesterday afternoon. 02/04: The patient is still intubated and mechanically ventilated. She is moving the right lower extremity spontaneously. Nursing reports no response to stimuli with the left upper extremity, otherwise she is withdrawing still. The ventriculostomy was withdrawn yesterday due to Gram variable rods noted on the Gram stain off the CSF specimen sent for culture when she spiked her temperature on . 8/5: intubated, sedation off. not opening eyes or following command. withdraws x 4. 8/6: MRI Brain completed yesterday, otherwise no changes to neuro checks overnight 02/08: When seen this morning the patient was intubated and mechanically ventilated. She was not on any drips for sedation. Respiratory was present in the room and was going to place her on CPAP. 02/09: The patient remains intubated and mechanically ventilated when seen this afternoon. Nursing reports that the patient failed a CPAP trial and went apneic. The plan is to do a trach tomorrow according to Nursing. 02/10: This afternoon the patient is intubated and on CPAP. 02/11: The patient is sedated when seen due to having a tracheostomy done at the bedside just prior to her being seen. During the morning the patient also had a PEG tube done at the bedside. 02/13: The patient is trached and on a T-piece when seen this morning. She is noted to have the left eye partially opened. She is not on any sedation. ( Marques Moreno) System Review Comments Unable to obtain due to clinical condition. (Marques Moreno) Exam Results Vital Signs Date Time Temp Pulse Resp B/P Pulse Ox O2 Delivery O2 Flow Rate FiO2 02/13/17 10:00 98 02/13/17 09:25 25 02/13/17 08:00 100 T-Piece 35 02/13/17 08:00 99.3 149/68 02/13/17 07:59 6.00 Intake and Output 02/12/17 02/12/17 02/13/17 08:00 16:00 00:00 Intake Total 472 ml 1010 ml 1001 ml Output Total 525 ml 700 ml 450 ml Balance -53 ml 310 ml 551 ml (Marques Moreno) Physical Examination GENERAL: The patient is trached and on a T-piece w/o any sedation. SKIN: Skin warm & dry. Multiple abrasions healing well. HEENT: Well approximated left-sided craniotomy, w/o any evident drainage, erythema or streaking. Flap soft. NECK: No JVD, trachea midline, tracheostomy in place. CARDIOVASCULAR: S1S2 w/RRR w/o M/G/R, radial & pedal pulses 2+ bilaterally, cap refill < 2 sec, no pedal edema. Monitor is sinus rhythm w/o any ectopy noted. RESPIRATORY: CTAB w/o W/R/R, equal excursion, nonlaboured, trached and on a T- piece. GASTROINTESTINAL: Abdomen soft, bowel sounds not appreciated, PEG tube w/ enteral feeds. MUSCULOSKELETAL: Scattered abrasions & ecchymosis. No evident deformities or clubbing. NEUROLOGICAL: GCS 5-6T (E1 V1T M3-4). Left eye partially open, does open right to noxious stimulus. Does not track. PERRLA 3mm slightly sluggish. No spontaneous movement noted. Flexion vs withdrawal to localised noxious stimuli BLE w/flexion RUE none to LUE, flexion vs withdrawal to central noxious stimulus RUE & BLE but not LUE. (Marques Moreno) Lab, Micro, Other Results Allergies Coded Allergies Type Severity Reaction Last Updated Verified No Known Allergies 01/31/17 No Recent Impressions Chest X-Ray 02/11/17 0600 Signed Impressions: Service Date/Time: February 05:17 - CONCLUSION: Clear lungs. Pierre Holt MD 06:00 18:00 06:00 18:00 06:00 18:00 Intake Total 1634 ml 876 ml 1057 ml 1010 ml 1697 ml Output Total 1000 ml 650 ml 1025 ml 700 ml 750 ml 0 ml Balance 634 ml 226 ml 32 ml 310 ml 947 ml 0 ml Intake IV Total 1061 ml 816 ml 937 ml 870 ml 1075 ml Tube Feeding 313 ml 0 ml 0 ml 40 ml 622 ml Other 260 ml 60 ml 120 ml 100 ml Output Urine Total 1000 ml 650 ml 1025 ml 700 ml 750 ml Tube Feeding Residual Discard 0 ml # Bowel Movements 2 2 2 0 Laboratory Tests Test 02/10/17 02/11/17 02/11/17 02/12/17 12:01 05:47 09:01 11:22 White Blood Count 8.9 TH/MM3 8.6 TH/MM3 Red Blood Count 2.55 MIL/MM3 2.56 MIL/MM3 Hemoglobin 7.9 GM/DL 7.9 GM/DL Hematocrit 23.3 % 23.3 % Mean Corpuscular Volume 91.4 FL 91.1 FL Mean Corpuscular Hemoglobin 30.8 PG 30.8 PG Mean Corpuscular Hemoglobin 33.7 % 33.8 % Concent Red Cell Distribution Width 16.1 % 16.3 % Platelet Count 687 TH/MM3 668 TH/MM3 Mean Platelet Volume 6.7 FL 6.7 FL Sodium Level 142 MEQ/L 142 MEQ/L 142 MEQ/L Potassium Level 3.4 MEQ/L 5.6 MEQ/L 3.8 MEQ/L Chloride Level 108 MEQ/L 110 MEQ/L 107 MEQ/L Carbon Dioxide Level 27.1 MEQ/L 21.3 MEQ/L 29.2 MEQ/L Anion Gap 7 MEQ/L 11 MEQ/L 6 MEQ/L Blood Urea Nitrogen 19 MG/DL 15 MG/DL 16 MG/DL Creatinine 0.53 MG/DL 0.46 MG/DL 0.36 MG/DL Estimat Glomerular Filtration 123 ML/MIN 145 ML/MIN 192 ML/MIN Rate Random Glucose 125 MG/DL 75 MG/DL 94 MG/DL Calcium Level 7.6 MG/DL 8.5 MG/DL 8.0 MG/DL Vancomycin Level Trough 17.9 MCG/ML Urine Color YELLOW Urine Turbidity CLEAR Urine pH 5.5 Urine Specific [place] 1.026 Urine Protein 30 mg/dL Urine Glucose (UA) NEG mg/dL Urine Ketones 80 mg/dL Urine Occult Blood TRACE Urine Nitrite NEG Urine Bilirubin NEG Urine Urobilinogen LESS THAN 2.0 MG/DL Urine Leukocyte Esterase NEG Urine RBC 5 /hpf Urine WBC 4 /hpf Urine Transitional Epithelial <1 /hpf Cells Urine Bacteria RARE /hpf Urine Mucus FEW /lpf Microscopic Urinalysis Comment CATH-CULTURE IND Test 02/12/17 02/13/17 02/13/17 12:50 05:23 07:44 Blood Gas Puncture Site RT RADIAL Blood Gas Patient Temperature 98.6 Blood Gas HCO3 25 mmol/L Blood Gas Base Excess 1.5 mmol/L Blood Gas Oxygen Saturation 97 % Arterial Blood pH 7.44 Arterial Blood Partial 38 mmHg Pressure CO2 Arterial Blood Partial 142 mmHg Pressure O2 Arterial Blood Oxygen Content 9.9 Vol % Arterial Blood 1.4 % Carboxyhemoglobin Arterial Blood Methemoglobin 0.8 % Blood Gas Hemoglobin 7.0 G/DL Oxygen Delivery Device MASK Blood Gas Inspired Oxygen 40 % White Blood Count 8.1 TH/MM3 Red Blood Count 2.52 MIL/MM3 Hemoglobin 7.9 GM/DL Hematocrit 22.8 % Mean Corpuscular Volume 90.3 FL Mean Corpuscular Hemoglobin 31.4 PG Mean Corpuscular Hemoglobin 34.8 % Concent Red Cell Distribution Width 15.7 % Platelet Count 611 TH/MM3 Mean Platelet Volume 7.0 FL Sodium Level 141 MEQ/L Potassium Level 3.1 MEQ/L Chloride Level 104 MEQ/L Carbon Dioxide Level 28.2 MEQ/L Anion Gap 9 MEQ/L Blood Urea Nitrogen 12 MG/DL Creatinine 0.42 MG/DL Estimat Glomerular Filtration 161 ML/MIN Rate Random Glucose 142 MG/DL Calcium Level 7.7 MG/DL Vancomycin Level Trough 8.8 MCG/ML Vital Signs Date Time Temp Pulse Resp B/P Pulse Ox O2 Delivery O2 Flow Rate FiO2 02/13/17 10:00 98 02/13/17 09:25 25 02/13/17 08:00 104 02/13/17 08:00 100 T-Piece 35 02/13/17 08:00 99.3 104 26 149/68 100 02/13/17 07:59 100 Trach Collar 6.00 35 02/13/17 06:00 97 02/13/17 04:00 28 02/13/17 04:00 100 02/13/17 04:00 101.8 102 21 121/56 100 02/13/17 02:00 86 02/13/17 00:00 28 02/13/17 00:00 104 02/13/17 00:00 100.1 104 14 149/69 100 02/12/17 22:00 104 02/12/17 20:21 100 Trach Collar 40 02/12/17 20:00 94 02/12/17 20:00 28 02/12/17 20:00 99.1 91 16 127/61 100 Arterial Line 02/12/17 18:00 95 02/12/17 16:00 26 02/12/17 16:00 100.4 100 20 130/60 100 02/12/17 16:00 100 02/12/17 14:00 92 02/12/17 12:00 98.8 84 21 120/60 100 02/12/17 12:00 84 02/12/17 12:00 26 02/12/17 11:56 100 Trach Collar 40 02/12/17 10:00 84 02/12/17 09:23 100 40 02/12/17 08:16 100 40 02/12/17 08:16 40 02/12/17 08:00 84 02/12/17 08:00 40 02/12/17 08:00 99.3 84 14 115/55 100 02/12/17 06:00 99 02/12/17 04:40 100 40 02/12/17 04:00 96 02/12/17 04:00 40 02/12/17 04:00 98.9 97 17 129/60 100 02/12/17 02:00 93 02/12/17 01:33 100 40 02/12/17 00:00 89 02/12/17 00:00 40 02/12/17 00:00 99.0 84 14 107/56 100 02/11/17 22:00 88 02/11/17 20:49 100 40 02/11/17 20:00 90 02/11/17 20:00 98.6 101 18 121/59 100 02/11/17 20:00 40 02/11/17 18:30 100 40 02/11/17 18:00 97 02/11/17 16:00 100 02/11/17 16:00 108 02/11/17 16:00 102.6 108 18 138/66 100 02/11/17 14:00 107 02/11/17 13:30 100 100 02/11/17 12:00 99.7 82 14 124/58 100 02/11/17 12:00 100 02/11/17 12:00 82 02/11/17 10:00 98 02/11/17 08:38 40 02/11/17 08:37 100 40 02/11/17 08:00 89 02/11/17 08:00 40 02/11/17 08:00 100.4 89 19 120/56 100 02/11/17 06:00 89 02/11/17 04:08 100 40 02/11/17 04:00 99.5 89 14 122/60 100 02/11/17 04:00 40 02/11/17 04:00 89 02/11/17 02:00 94 02/11/17 00:00 90 02/11/17 00:00 99.7 96 16 127/71 100 02/11/17 00:00 40 02/10/17 23:32 99 40 02/10/17 22:00 99 02/10/17 21:06 100 40 02/10/17 20:00 101.3 98 14 115/53 100 02/10/17 20:00 40 02/10/17 20:00 100 02/10/17 18:00 96 02/10/17 16:00 40 02/10/17 16:00 99.1 102 29 126/58 97 02/10/17 16:00 102 02/10/17 15:39 97 40 02/10/17 14:00 111 02/10/17 12:00 103 02/10/17 12:00 40 02/10/17 12:00 100.9 103 21 111/53 100 (Marques Moreno) Medical Decision Making Impression and Plan Impression: 1. Severe acute left hemisphere subdural hematoma with severe midline shift and mass effect. 2. Right temporal bone fracture-nondisplaced Leukocytosis, resolved Anaemia,stable (7.9=>7.9) Thrombocytosis, interval decrease (668=>611) Thrombocytopenia, resolved Sodium 141 Hypokalemia (3.8=>3.1) eGFR WNL Hypophosphatemia,resolved CT brain demonstrates no significant change in the left SDH or the right temporal lobe low attenuation region compared to . MRI brain demonstrates some residual left SDH to occipital region & posterior fossa, bilateral temporal lobe contusions & scattered SAH, with a minimal right to left shift. There are multiple haemosiderin deposits noted on susceptibility weighted images over both convexities and the left lateral. 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 T max 101.8 yesterday afternoon. Patient with stable put poor neurological response. POD #17 () s/p: 1. Left decompressive frontotemporoparietal craniotomy for evacuation of acute subdural hematoma. 2. Left frontal ventriculostomy catheter placement 3. Left frontal twist drill for intracranial pressure monitor placement Plan: Primary management per Wide Area Network Administrator/Trauma. Frequent neuro checks. Stat CT brain for worsening neuro status. Daily sodium level, maintain sodium in 145-153 range. Continuing ventilatory support and full sedation. Seizure prophylaxis. Ulcer prophylaxis. Continue non chemical DVT prophylaxis. Okay for Lovenox. (Marques Moreno) Attending Statement The exam, history, and the medical decision-making described in the above note were completed with the assistance of the mid-level provider. I reviewed and agree with the findings presented. I attest that I had a [id number] encounter with the patient on the same day, and personally performed and documented my assessment and findings in the medical record. Examination today, the patient remains neurologically stable. Moderate eye- opening when stimulated. Does not follow commands. [id number] disconjugate gaze and oculocephalics. Mild response to deep pain in the upper extremities No overall change in neurologic function over the past 2-3 days. Continuing on trach mask. Tube feedings. Follow-up CT scan head next week. (Nic Bahena MD) Marques Moreno Feb 13, 2017 12:05 Nic Bahena MD Feb 13, 2017 13:56
--- NOTE | 2017-02-13 13:31 | HHI.CCPN ---
Subjective Brief History severe traumatic brain injury. [place] coma scale 3. Large left temporoparietal subdural hematoma, right basal skull fracture through the petrous bone with extrusion of some brain matter on the right, fracture of the right scapula, left superior inferior ramus pubic fracture with minimal displacement and a right sacral fracture. Patient will be taken immediately to the operating room. Patient underwent a left frontotemporal craniectomy with evacuation of subdural hematoma and placement of ventriculostomy Orthopedic consult was obtained and no further operative management will be instituted 24 Hour Review/Hospital Course Patient has been in the ICU overnight intubated and ventilated 01/29/17 Neurologic status is unchanged ICP remains low Pupils are equal about 2 mm and somewhat reactive Patient remains on propofol fentanyl Hypertonic 3% saline at 30 cc/h Keppra No clinical suspicion of seizures 01/30/17 Patient is withdrawing all 4 extremities and localizes and opened her eyes ICP remains low around 8 mmHg Removed from propofol and fentanyl or any form of sedation Sodium 158 and hypertonic saline removed Remains intubated and ventilated and starting to pickup on her own the rate 01/31 open eyes spontaneously-move extremities ICP around 10 mmHg ventriculostomy 110cc/8hrs tolerating CPAP 02/01/17 ICP remains low around 8-10 mmHg Probably ventriculostomy can be safely removed soon as per neurosurgery Patient opening eyes and trying to follow some commands moves both lower extremities and right arm but very little in the left arm Patient is definitely neurologically improving Tolerated CPAP for about 4 hours 02/02/17 Patient neurologically unchanged. Opens eyes to sternal rub and moves all 4 extremities right more than left as described yesterday Does not follow commands Repeat CT scan shows evolving parietal trauma with edema however no new changes EEG consistent with encephalopathy and no seizures Patient is on Keppra and valproic acid. In this case valproic acid has been added by neuropsychology for unrelated reasons ICP remains around 8-9 mmHg and ventriculostomy is a 10 cm Will be probably able to remove either ICP bolt, ventriculostomy or both soon as per neurosurgery 02/04/17 Neurologically slightly improved patient's opening eyes Moves extremities but left side is clearly weaker than the right Right chest drain in position however still apical pneumothorax which is enlarging and we'll place another anterior drain Patient spiked fever to 103 yesterday Triple-lumen removed Venous ultrasound did not reveal any deep venous thrombosis in the arm or the shoulder girdle Patient doing well at this time continue antibiotics 02/05/17 off sedation slowly emerging CXR stable-keep drain on suction 02/06 sodium 141 hgb 11 moving all 4 extremities CXR no PTX NS cleared for lovenox 02/07/17 MRI shows BARBY clinically slowly emerging 02/08/17 patient reached a plateau palliative discussion with family they wish to proceed with peg/trach 02/09/17 febrile 102.9 wbc 18 CSF /urine cultures noted ID managing tolearing CPAP-but not extubatable due to mental status 02/10/17 No change in neurologic status Patient is moving all 4 extremities but left side is weaker than the right No change in level of consciousness precluding extubation Discussed with family through palliative care and directly and the want everything done This patient has a very poor prognosis as far as neurologic recovery is concerned and will require tracheostomy and PEG at this time which are scheduled for tomorrow 02/11/17 No change in neurologic status Patient opening eyes spontaneously coughing and gagging moving all 4 extremities No following commands For tracheostomy today 02/12/17 No change in neurologic status patient is moving both sides of her body but does not follow commands Opens eyes Tracheostomy placed successfully yesterday We'll wean patient to separate from the ventilator Patient is at this point ready to go to LTAC whenever bed is available 02/13/17 No change in neurologic status Patient is liberated from the respirator remains stable In the face of severe neurologic injury patient needs transfer to a fpc or the neural rehabilitation facility Enteral feeds tolerated Remains is ICU as a border because of complexity of care and tracheostomy but otherwise could go to the floor as soon as a bed is available to nursing station Objective Vital Signs Date Time Temp Pulse Resp B/P Pulse Ox O2 Delivery O2 Flow Rate FiO2 02/13/17 10:00 98 02/13/17 09:25 25 02/13/17 08:00 100 T-Piece 35 02/13/17 08:00 99.3 149/68 02/13/17 07:59 6.00 Intake and Output 02/12/17 02/12/17 02/12/17 07:59 15:59 23:59 Intake Total 472 ml 1010 ml 1001 ml Output Total 525 ml 700 ml 450 ml Balance -53 ml 310 ml 551 ml Result Diagram: 02/13/1752202/13/17522 Assessment and Plan Plan neuro status same HD stable CT right to waterseal one CT removed continue tube feeds start SBT- abx for + CSF culture will insert zhong in light of febrile episodes,exact I&O s and protect perineal skin form break down - will plan for trach next 48 hrs Noemy Philip MD Feb 13, 2017 13:31
[2017-02-13] MEDS: AMANTADINE HCL SOLN 100 MG/10 ML UDC PO SCH (13:43)
--- NOTE | 2017-02-13 17:58 | HHI.IDPN ---
Subjective Subjective Remarks ID Xcover chart was reviwed Patient is a 46-year-old female admitted as a trauma alert sp fall from height She was found to have significant traumatic brain injury, and also had some other fracture including scapular fracture and in the pelvic region. The orthopedic injuries were all being treated conservatively. She underwent emergent surgery on her brain for evacuation of the significant epidural hematoma, placement of a bolt, as well as a ventriculostomy. She has remained on the vent. She was on Unasyn since January 29. Starting February 01 she started having fevers, and no cultures were ordered. CSF culture is showing gram- variable segun on the Gram stain of the broth but it did not grow on culture media. She has been started on cefepime and vancomycin. Patient also has a chest tube for pneumothorax. Her chest x-ray has shown stable findings. Urinalysis unremarkable. She has a central line in the right IJ. Notes reviewed cont to have fevers up to 101.8 Hemodynamics ok S/P trach and PEG 8/10 Last CXR clear WBC normal Tolerating CPAP Antibiotics Vancomycin Cefepime Diflucan Lines PIV Past Medical History None Allergies: Coded Allergies: No Known Allergies (Unverified , 01/31/17) per Objective . Vital Signs Date Time Temp Pulse Resp B/P Pulse Ox O2 Delivery O2 Flow Rate FiO2 02/13/17 16:00 97 02/13/17 14:00 98 02/13/17 12:00 100 02/13/17 10:00 98 02/13/17 09:25 25 02/13/17 08:00 104 02/13/17 08:00 100 T-Piece 35 02/13/17 08:00 99.3 104 26 149/68 100 02/13/17 07:59 100 Trach Collar 6.00 35 02/13/17 06:00 97 02/13/17 04:00 28 02/13/17 04:00 100 02/13/17 04:00 101.8 102 21 121/56 100 02/13/17 02:00 86 02/13/17 00:00 28 02/13/17 00:00 104 02/13/17 00:00 100.1 104 14 149/69 100 02/12/17 22:00 104 02/12/17 20:21 100 Trach Collar 40 02/12/17 20:00 94 02/12/17 20:00 28 02/12/17 20:00 99.1 91 16 127/61 100 Arterial Line 02/12/17 18:00 95 02/12/17 02/12/17 02/13/17 14:59 22:59 06:59 Intake Total 1010 ml 1001 ml 696 ml Output Total 700 ml 450 ml 300 ml Balance 310 ml 551 ml 396 ml Intake IV Total 870 ml 703 ml 372 ml Tube Feeding 40 ml 298 ml 324 ml Other 100 ml Output Urine Total 700 ml 450 ml 300 ml # Bowel Movements 0 . Laboratory Tests Test 02/13/17 05:23 White Blood Count 8.1 TH/MM3 Red Blood Count 2.52 MIL/MM3 Hemoglobin 7.9 GM/DL Hematocrit 22.8 % Mean Corpuscular Volume 90.3 FL Mean Corpuscular Hemoglobin 31.4 PG Mean Corpuscular Hemoglobin 34.8 % Concent Red Cell Distribution Width 15.7 % Platelet Count 611 TH/MM3 Mean Platelet Volume 7.0 FL Laboratory Tests Test 02/13/17 05:23 Sodium Level 141 MEQ/L Potassium Level 3.1 MEQ/L Chloride Level 104 MEQ/L Carbon Dioxide Level 28.2 MEQ/L Anion Gap 9 MEQ/L Blood Urea Nitrogen 12 MG/DL Creatinine 0.42 MG/DL Estimat Glomerular Filtration 161 ML/MIN Rate Random Glucose 142 MG/DL Calcium Level 7.7 MG/DL Microbiology Date/Time Procedure Status Source Growth 02/12/17 11:22 Urine Culture - Preliminary Resulted Urine Clean Catch NO GROWTH IN 24 HOURS. 02/13/17 05:23 Aerobic Blood Culture Received Blood Peripheral Pending 02/13/17 05:23 Anaerobic Blood Culture Received Blood Peripheral Pending 02/13/17 07:44 Aerobic Blood Culture Received Blood Peripheral Pending 02/13/17 07:44 Anaerobic Blood Culture Received Blood Peripheral Pending Imaging Last Impressions Chest X-Ray 02/11/17 06 Signed Impressions: Service Date/Time: February 05:17 - CONCLUSION: Clear lungs. Pierre Holt MD Head CT 02/10/17 06 Signed Impressions: Service Date/Time: Friday, February 10, 2017 04:19 - CONCLUSION: 1. 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 2. Bilateral temporal hypodensities are stable. Pierre Holt MD Brain MRI 02/06/17 0000 Signed Impressions: Service Date/Time: Monday, February 06, 2017 21:31 - CONCLUSION: 1. Postoperative partial left craniectomy for decompression and evacuation of left subdural hematoma. There is some residual subdural hematoma present predominantly posteriorly in the occipital region and posterior fossa. 2. Bilateral temporal lobe contusions with measurements given above. Scattered subarachnoid hemorrhage. 3. Fluid in the temporal bones bilaterally and in the sphenoid sinus. There minimal right to left midline shift. Multiple hemosiderin deposits noted on the susceptibility weighted images especially over both convexities and on the left side laterally. Juan Bajwa MD Upper Extremity Ultrasound 02/04/17 0000 Signed Impressions: Service Date/Time: February 07:52 - CONCLUSION: No DVT is identified. Please note that portions of the basilic and cephalic vein are not visualized. Emerson Mariee MD Hand X-Ray 02/02/17 0000 Signed Impressions: Service Date/Time: Thursday, February 02, 2017 14:00 - CONCLUSION: No acute left hand abnormality is identified. Emerson Mariee MD Thoracic Spine CT 01/27/17 1700 Signed Impressions: Service Date/Time: Friday, January 27, 2017 17:20 - CONCLUSION: 1. No fracture or subluxation. 2. Minimal subcutaneous emphysema seen within the upper neck likely related to patient's temporal bone fracture. Eb Guerin MD Pelvis X-Ray 01/27/17 170 Signed Impressions: Service Date/Time: Friday, January 27, 2017 16:54 - CONCLUSION: 1. Left pubic rami fractures. Otoniel Crain MD Lumbar Spine CT 01/27/17 1700 Signed Impressions: Service Date/Time: Friday, January 27, 2017 17:20 - CONCLUSION: 1. No fracture or subluxation of the lumbar spine. 2. There are fractures of the right sacrum discussed in detail on CT the abdomen/pelvis. Eb Guerin MD Chest CT 01/27/17 1700 Signed Impressions: Service Date/Time: Friday, January 27, 2017 17:25 - CONCLUSION: 1. Comminuted fracture involving the right scapula. 2. Minimal posterior atelectatic changes bilaterally. Juan Carlos Jc MD Cervical Spine CT 01/27/17 1700 Signed Impressions: Service Date/Time: Friday, January 27, 2017 17:24 - CONCLUSION: 1. No acute fracture or prevertebral soft tissue swelling. 2. Straightening of the normal cervical lordosis. 3. Cervical spondylosis from C3 through C6. 4. Mild bilateral foraminal narrowing at C3-4, C4-5 and C5-6. Juan Carlos Jc MD Abdomen/Pelvis CT 01/27/17 170 Signed Impressions: Service Date/Time: Friday, January 27, 2017 17:25 - CONCLUSION: 1. Acute fractures along the right sacrum as well as the left superior and inferior pubic rami. 2. No intra-abdominal trauma identified. Juan Carlos Jc MD Radius/Ulna X-Ray 01/27/17 0000 Signed Impressions: Service Date/Time: Friday, January 27, 2017 16:54 - CONCLUSION: Soft tissue swelling involving the right mid forearm without underlying radial or ulnar fracture. Juan Carlos Jc MD Physical Exam GENERAL: Comfortable on vent, on CPAP, not on sedation, no interaction SKIN: Warm and dry. No generalized rash HEAD: Incision L side of head is dry, no redness or drainage. Previous tubes site in scalp dry EYES: [place] conjunctiva. No petechia or hemorrhage. Pupils equal, round and reactive to light. No scleral icterus. No injection or drainage. EARS, NOSE AND THROAT: Nose without bleeding or purulent nasal discharge. NECK: Trachea midline. Supple and not tender, no meningeal signs. Trach ok CARDIOVASCULAR: Regular rate and rhythm. No murmurs, rubs or gallops heard RESPIRATORY: Decreased breath sounds at the bases ABDOMEN: Soft, nondistended, No reaction to deep palpation. Bowel sounds present and normoactive. No organomegaly. Intact dressing over PEG EXTREMITIES: No clubbing, cyanosis, or joint effusion. +1 edema. Well perfused and warm. NEUROLOGICAL: No interaction; unresponsive, not follwoeing commands PSYCHIATRIC: Unable to assess LINE: No evidence of infection : Sanchez in place urine looks ok Assessment & Plan Remarks IMPRESSION Persistent fevers, source? 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
[2017-02-14] VITALS (11 sets, daily range): BP systolic 112–134; BP diastolic 56–85; PULSE 96–126; RESP 18–28; TEMP 99.3–100.8; O2SAT 96–100
[2017-02-14] MEDS: ENOXAPARIN SODIUM 30 MG/0.3 ML SYRINGE SQ SCH ×2 (00:09→13:00)
[2017-02-14] MEDS: CEFEPIME INJ 2,000 MG in SODIUM CHLORIDE 0.9% INJ 100 ML IV SCH ×3 (00:09→18:45)
[2017-02-14] MEDS: SODIUM CHLOR 0.9% 1000 ML INJ 1,000 ML IV SCH ×2 (00:10→11:33)
[2017-02-14] MEDS: VANCOMYCIN 1,000 MG/NS 250 ML IV SCH ×6 (01:13→17:23)
[2017-02-14 04:40] LABS: MEAN CELL VOLUME 89.7 FL (80.0-100.0); MEAN CORPUSCULAR HEMOGLOBIN 30.3 PG (27.0-34.0); MEAN CORPUSCULAR HGB CONC 33.7 % (32.0-36.0); PLATELET COUNT 721 TH/MM3 (150-450); RED BLOOD COUNT 3.01 MIL/MM3 (4.00-5.30); RED CELL DISTRIBUTION WIDTH 15.7 % (11.6-17.2); WHITE BLOOD COUNT 9.8 TH/MM3 (4.0-11.0)
[2017-02-14 04:41] LABS: HEMO FLAGS AUTO DIFF
[2017-02-14 05:14] LABS: BLOOD GAS CARBOXYHEMOGLOBIN 1.7 % (0-4); BLOOD GAS HCO3 30 mmol/L (22-26); BLOOD GAS METHEMOGLOBIN 0.3 % (0-2); BLOOD GAS O2 HGB SATURATION 95 % (90-100); BLOOD GAS OXYGEN CONTENT 10.5 Vol % (12.0-20.0); BLOOD GAS PCO2 34 mmHg (38-42); BLOOD GAS PO2 78 mmHg (61-120); BLOOD GAS TOTAL HGB 7.7 G/DL (12.0-16.0); TEMP CORR TO 98.6
[2017-02-14 05:15] LABS: CRITICAL VALUE YES; DRAW SITE RT RADIAL; FIO2 28 %; LITER FLOW 6 L/M; NUMBER OF ARTERIAL PUNCTURES 1; OXYGEN DEVICE TC; STAT NO; ULNAR PULSE PRESENT
[2017-02-14 05:22] LABS: ALKALINE PHOSPHATASE 224 U/L (45-117); ALT (GPT) 31 U/L (10-53); ANION GAP 10 MEQ/L (5-15); AST (GOT) 43 U/L (15-37); BICARBONATE 27.9 MEQ/L (21.0-32.0); BLOOD UREA NITROGEN 9 MG/DL (7-18); CHLORIDE 106 MEQ/L (98-107); GLOMERULAR FILTRATION RATE 186 ML/MIN (>89); MAGNESIUM 1.8 MG/DL (1.5-2.5); SODIUM (NA) 144 MEQ/L (136-145); TOTAL BILIRUBIN ADULT 0.4 MG/DL (0.2-1.0)
[2017-02-14 05:24] LABS: POTASSIUM 4.2 MEQ/L (3.5-5.1)
[2017-02-14 05:27] LABS: BANDS 10 % (0-6); CORRECTED NUCLEATED RBC 1 /100 WBC (0-0); EOSINOPHILS 1 % (0-4); NEUTROPHIL # MANUAL DIFF 7.8 TH/MM3 (1.8-7.7); POLYS (SEG NEUTROPHILS) 70 % (16-70); WBC DIFF SAMPLE 100
[2017-02-14 05:28] LABS: PLATELET ESTIMATE SMEAR HIGH (NORMAL); PLATELET MORPHOLOGY NORMAL (NORMAL); SCAN/DIFF FINAL DIFF MANUAL
--- NOTE | 2017-02-14 05:56 | RADRPT ---
EXAM DATE/TIME: 02/14/2017 04:56 [facility] COMPARISON: CHEST SINGLE AP, February 11, 2017, 5:17. INDICATIONS : Shortness of breath. MEDICAL HISTORY : Subdural hematoma SURGICAL HISTORY : Craniotomy, Hysterectomy ENCOUNTER: Subsequent ACUITY: 2 weeks PAIN SCORE: Non-responsive. LOCATION: Bilateral chest FINDINGS: A single view of the chest demonstrates bilateral perihilar densities greater in the right perihilar region. Right-sided chest tube has been removed. No significant pneumothorax. Tracheostomy tube 2.5 c m above the dima.. The cardiomediastinal contours are unremarkable. Osseous structures are intact . CONCLUSION: 1. Bilateral perihilar densities. 2. Removal right sided chest tube. No significant pneumothorax. Eb Guerin MD on February 14, 2017 at 5:52 Board Certified Radiologist. This report was verified electronically.
[2017-02-14] MEDS: ACETAMINOPHEN 325 MG TAB PO PRN ×2 (06:26→23:06)
[2017-02-14] MEDS: CHLORHEXIDINE 0.12% (ORAL KIT) 15 ML CUP MT SCH ×2 (07:38→20:00)
[2017-02-14] MEDS: BISACODYL 10 MG SUPP RECTAL SCH (09:00)
[2017-02-14] MEDS: BACITRACIN TOP OINT 15 GM TUBE TOPICAL SCH ×2 (09:00→21:00)
[2017-02-14] MEDS: SODIUM CHLORIDE 0.9% FLUSH 10 ML FLUSH IV FLUSH SCH ×2 (09:00→21:00)
[2017-02-14] MEDS: DOCUSATE SODIUM 50 MG/SENNA 8.6 MG TAB PO SCH ×2 (09:00→23:06)
[2017-02-14] MEDS: FLUCONAZOLE 400 MG PREMIX BAG 200 ML IV SCH (09:44)
[2017-02-14] MEDS ORDERED: PHARMACY ORDERED LAB ONE (09:45)
[2017-02-14] MEDS: FAMOTIDINE 20 MG TAB NG SCH ×2 (09:45→23:07)
[2017-02-14] MEDS: AMANTADINE HCL SOLN 100 MG/10 ML UDC NG SCH (09:45)
[2017-02-14] MEDS: SODIUM CHLORIDE 1 GRAM TAB PO SCH (09:47)
--- NOTE | 2017-02-14 11:09 | HHI.NSPN ---
History Chief Complaint: Unable to obtain due to clinical condition. Interval History Status post left decompressive craniotomy evacuation large acute subdural hematoma with approximately 16 mm shift 01/27/17. 02/03/17 ventriculostomy catheter removed 02/04/17 ICP monitor bolt removed Exam Results Vital Signs Date Time Temp Pulse Resp B/P Pulse Ox O2 Delivery O2 Flow Rate FiO2 02/14/17 07:00 100 T-Piece 35 02/14/17 06:00 102 02/14/17 04:00 99.8 28 123/59 02/13/17 07:59 6.00 Intake and Output 02/13/17 02/13/17 02/14/17 08:00 16:00 00:00 Intake Total 696 ml 1437 ml 1078 ml Output Total 300.0 ml 600.0 ml 900.0 ml Balance 396.0 ml 837.0 ml 178.0 ml Physical Examination GENERAL: The patient is trached and on a T-piece w/o any sedation. SKIN: Skin warm & dry. Multiple abrasions healing well. HEENT: Well approximated left-sided craniotomy, w/o any evident drainage, erythema or streaking. Flap soft. NECK: No JVD, trachea midline, tracheostomy in place. CARDIOVASCULAR: S1S2 w/RRR w/o M/G/R, radial & pedal pulses 2+ bilaterally, cap refill < 2 sec, no pedal edema. Monitor is sinus rhythm w/o any ectopy noted. RESPIRATORY: CTAB w/o W/R/R, equal excursion, nonlaboured, trached and on a T- piece. GASTROINTESTINAL: Abdomen soft, bowel sounds not appreciated, PEG tube w/ enteral feeds. MUSCULOSKELETAL: Scattered abrasions & ecchymosis. No evident deformities or clubbing. NEUROLOGICAL: GCS 5-6T (E1 V1T M3-4). Open his eyes intermittent spontaneous and also slowly to voice. She is starting to track and focus briefly with her eyes. PERRLA 3mm slightly sluggish. No spontaneous movement noted. Mild flexion right upper extremity to deep pain. No response left upper extremity deep pain Medical Decision Making Impression and Plan Impression: 1. Stable neurologic exam following left craniotomy evacuation large acute subdural hematoma. She is starting to focus and track briefly with her eyes. Plan: Continue ventilatory support Follow-up CT scan early next week depending on clinical course Continue ISC neurologic checks and monitoring Continue follow sodium level to keep 145-153 range Lovenox DVT prophylaxis Nic Bahena MD Feb 14, 2017 11:09
[2017-02-14] MEDS: AMANTADINE HCL SOLN 100 MG/10 ML UDC PO SCH (12:00)
--- NOTE | 2017-02-14 13:33 | HHI.CCPN ---
Subjective Brief History [place]: This is a 46-year-old female who fell through her attic. Unresponsive. GCS 3. Pupils: L=6, R=1. Intubated in the ED. Patient with severe traumatic brain injury. Taylors coma scale 3. Large left temporoparietal subdural hematoma, right basal skull fracture through the petrous bone with extrusion of some brain matter on the right, fracture of the right scapula, left superior inferior ramus pubic fracture with minimal displacement and a right sacral fracture. Patient will be taken immediately to the operating room. Patient underwent a left frontotemporal craniectomy with evacuation of subdural hematoma and placement of ventriculostomy Orthopedic consult was obtained and no further operative management will be instituted 24 Hour Review/Hospital Course Patient has been in the ICU overnight intubated and ventilated 01/29/17 Neurologic status is unchanged ICP remains low Pupils are equal about 2 mm and somewhat reactive Patient remains on propofol fentanyl Hypertonic 3% saline at 30 cc/h Keppra No clinical suspicion of seizures 01/30/17 Patient is withdrawing all 4 extremities and localizes and opened her eyes ICP remains low around 8 mmHg Removed from propofol and fentanyl or any form of sedation Sodium 158 and hypertonic saline removed Remains intubated and ventilated and starting to pickup on her own the rate 01/31 open eyes spontaneously-move extremities ICP around 10 mmHg ventriculostomy 110cc/8hrs tolerating CPAP 02/01/17 ICP remains low around 8-10 mmHg Probably ventriculostomy can be safely removed soon as per neurosurgery Patient opening eyes and trying to follow some commands moves both lower extremities and right arm but very little in the left arm Patient is definitely neurologically improving Tolerated CPAP for about 4 hours 02/02/17 Patient neurologically unchanged. Opens eyes to sternal rub and moves all 4 extremities right more than left as described yesterday Does not follow commands Repeat CT scan shows evolving parietal trauma with edema however no new changes EEG consistent with encephalopathy and no seizures Patient is on Keppra and valproic acid. In this case valproic acid has been added by neuropsychology for unrelated reasons ICP remains around 8-9 mmHg and ventriculostomy is a 10 cm Will be probably able to remove either ICP bolt, ventriculostomy or both soon as per neurosurgery 02/04/17 Neurologically slightly improved patient's opening eyes Moves extremities but left side is clearly weaker than the right Right chest drain in position however still apical pneumothorax which is enlarging and we'll place another anterior drain Patient spiked fever to 103 yesterday Triple-lumen removed Venous ultrasound did not reveal any deep venous thrombosis in the arm or the shoulder girdle Patient doing well at this time continue antibiotics 02/05/17 off sedation slowly emerging CXR stable-keep drain on suction 02/06 sodium 141 hgb 11 moving all 4 extremities CXR no PTX NS cleared for lovenox 02/07/17 MRI shows BARBY clinically slowly emerging 02/08/17 patient reached a plateau palliative discussion with family they wish to proceed with peg/trach 02/09/17 febrile 102.9 wbc 18 CSF /urine cultures noted ID managing tolearing CPAP-but not extubatable due to mental status 02/10/17 No change in neurologic status Patient is moving all 4 extremities but left side is weaker than the right No change in level of consciousness precluding extubation Discussed with family through palliative care and directly and the want everything done This patient has a very poor prognosis as far as neurologic recovery is concerned and will require tracheostomy and PEG at this time which are scheduled for tomorrow 02/11/17 No change in neurologic status Patient opening eyes spontaneously coughing and gagging moving all 4 extremities No following commands For tracheostomy today 02/12/17 No change in neurologic status patient is moving both sides of her body but does not follow commands Opens eyes Tracheostomy placed successfully yesterday We'll wean patient to separate from the ventilator Patient is at this point ready to go to LTAC whenever bed is available 02/13/17 No change in neurologic status Patient is liberated from the respirator remains stable In the face of severe neurologic injury patient needs transfer to a skilled nursing or the neural rehabilitation facility Enteral feeds tolerated Remains is ICU as a border because of complexity of care and tracheostomy but otherwise could go to the floor as soon as a bed is available to nursing station 02/14/2017 PTD: 18 Unfortunately, no change in neurological status today. VSS. [facility] to the nursing station due to trach. Additionally she may transfer to a SNF when a bed is available. Objective Vital Signs Date Time Temp Pulse Resp B/P Pulse Ox O2 Delivery O2 Flow Rate FiO2 02/14/17 12:54 99.5 107 20 120/72 99 02/14/17 07:00 T-Piece 35 02/13/17 07:59 6.00 Intake and Output 02/13/17 02/13/17 02/13/17 07:59 15:59 23:59 Intake Total 696 ml 1437 ml 1078 ml Output Total 300 ml 600 ml 900 ml Balance 396 ml 837 ml 178 ml Result Diagram: 02/14/17 0426 02/14/17 0426 Other Results Microbiology Date/Time Procedure Status Source Growth 02/12/17 11:22 Urine Culture - Final Complete Urine Clean Catch NO GROWTH IN 48 HOURS. Laboratory Tests Test 02/14/17 05:00 Blood Gas Puncture Site RT RADIAL Blood Gas Patient Temperature 98.6 Blood Gas HCO3 30 mmol/L (22-26) Blood Gas Base Excess 7.0 mmol/L (-2-2) Blood Gas Oxygen Saturation 95 % (90-100) Arterial Blood pH 7.56 (7.380-7.420) Arterial Blood Partial 34 mmHg (38-42) Pressure CO2 Arterial Blood Partial 78 mmHg Pressure O2 (61-120) Arterial Blood Oxygen Content 10.5 Vol % (12.0-20.0) Arterial Blood 1.7 % (0-4) Carboxyhemoglobin Arterial Blood Methemoglobin 0.3 % (0-2) Blood Gas Hemoglobin 7.7 G/DL (12.0-16.0) Oxygen Delivery Device TC Blood Gas Liter Flow 6 L/M Blood Gas Inspired Oxygen 28 % Imaging Last 24 hours Impressions Chest X-Ray 02/14/17 0600 Signed Impressions: Service Date/Time: Tuesday, February 14, 2017 04:56 - CONCLUSION: 1. Bilateral perihilar densities. 2. Removal right sided chest tube. No significant pneumothorax. Eb Guerin MD Objective Remarks GENERAL: This is a 46-year-old female lying in bed. ADVENTURE THERAPIST in place. SKIN: Warm and dry. HEAD: Atraumatic. Normocephalic. EYES: PERRLA ENT: No nasal bleeding or discharge. Mucous membranes pink and moist. NECK: ADVENTURE THERAPIST. Trachea midline. No JVD. CARDIOVASCULAR: Regular rate and rhythm. RESPIRATORY: No accessory muscle use. Lungs are clear to auscultation. Breath sounds equal bilaterally. No distress or dyspnea. GASTROINTESTINAL: BS + x 4 quads. Abdomen soft, non-tender, nondistended. PEG tube in place. MUSCULOSKELETAL: Extremities without cyanosis, or edema. + peripheral pulses x 4 extremities. Warm with good capillary refill. NEUROLOGICAL: ADVENTURE THERAPIST. Withdraws to pain in all 4 extremities Urinary Catheter Assessment Urinary Catheter: Yes Assessment to: Continue Sanchez insert reason: Measure Accurate Output Vascular Central Line Catheter Vascular Central Line Catheter: No Assessment and Plan Assessment: (1) Acute subdural hematoma ICD Code: I62.01 Status: Acute (2) Traumatic brain injury ICD Code: S06.9X9A Status: Acute (3) Pneumothorax ICD Code: J93.9 Status: Acute (4) Encephalopathy ICD Code: G93.40 Status: Acute (5) Basilar skull fracture ICD Code: S02.109A Status: Acute (6) Fracture of left pelvis ICD Code: S32.9XXA Status: Acute (7) Sacral fracture ICD Code: S32.10XA Status: Acute (8) Right scapula fracture ICD Code: S42.101A Status: Acute Plan [place]: This is a 46-year-old female who sustained a fall. She fell through the attic floor. Unresponsive. GCS 3. Pupils: L=6, R=1. Intubated in the ED INJURIES: RIGHT temporal bone fx LEFT SDH (w/ 16 mm shift) RIGHT scapula fx (non-op) RIGHT sacrum fx (non-op) LEFT pubic rami fx(non-op) Procedures: 01/27: LEFT decompressive craniectomy 02/03: EVD removed 02/04: [place] removed R CT placed (CL related PTX) 02/02: R CT dislodged and found in bed 02/03: RIGHT lateral pigtail placed 02/04: Right anterior pigtail placed (still had PTX) 02/09: R lateral CT dislodged and found in bed 02/11: PEG 02/11: ADVENTURE THERAPIST Consults: CCM. Neurosurgery. Orthopedics. Infectious disease. Pharmacy. Rehabilitation medicine. Neuropsych. Palliative care. Case management. Diet: Jevity 1.5@55 mL/HR. Tolerating. Pulmonary: Encourage good pulmonary toileting. L&S via trach. PAIN Management: [place] 5 mg q6h. Activity: OOB to stretcher chair TID. PT and OT ordered GI prophylaxis: Pepcid BID. Bowel regimen: Shannon-colace BID. Lactulose. Bisacodyl RI PRN LBM: 02/12 DVT prophylaxis: Mechanical VTE with SCDs. Chemical management with Lovenox 30 BID SQ. DC Planning: Case management consulted for assistance with final discharge disposition. Patient will need long-term placement. Emotional support provided to patient and family at bedside and plan of care discussed. Discussed with RN at bedside. Patient is hemodynamically stable and therefore can be managed on the med/surg floor in a room close to the nursing station due to her trach. The trauma team will round each day, and evaluate plan of care on a daily basis. RIGHT temporal bone fx LEFT SDH (w/ 16 mm shift) Neurosurgery consulted and assisting in management and care Serial neuro checks Pain management Amantadine 100 mg BID Valproic acid 250 mg TID ADVENTURE THERAPIST placement PEG placement Will need full-time SNF placement RIGHT scapula fx (non-op) RIGHT sacrum fx (non-op) LEFT pubic rami fx(non-op) Orthopedics consulted and assisting in management and care All injuries were nonoperative at this point Pain management OOB to stretcher chair PT and OT ordered Problem Qualifiers (1) Traumatic brain injury: Qualified Code: S06.9X9D - Traumatic brain injury with loss of consciousness, subsequent encounter (2) Pneumothorax: Qualified Code: J93.9 - Pneumothorax, unspecified type (3) Basilar skull fracture: Qualified Code: S02.101A - Closed fracture of right side of base of skull, initial encounter (4) Fracture of left pelvis: Qualified Code: S32.502A - Closed nondisplaced fracture of left pubis, initial encounter (5) Sacral fracture: Qualified Code: S32.19XA - Other closed fracture of sacrum, initial encounter (6) Right scapula fracture: Qualified Code: S42.191A - Closed fracture of other part of right scapula, initial encounter Deysi Rodrigues Feb 14, 2017 13:33
[2017-02-15] VITALS (9 sets, daily range): BP systolic 119–147; BP diastolic 56–78; PULSE 97–108; RESP 18–24; TEMP 98.5–99.2; O2SAT 94–100
[2017-02-15] MEDS: VANCOMYCIN 1,000 MG/NS 250 ML IV SCH ×6 (02:20→18:00)
[2017-02-15] MEDS: CEFEPIME INJ 2,000 MG in SODIUM CHLORIDE 0.9% INJ 100 ML IV SCH ×3 (02:20→16:53)
[2017-02-15] MEDS: ENOXAPARIN SODIUM 30 MG/0.3 ML SYRINGE SQ SCH (02:20)
[2017-02-15] MEDS: SODIUM CHLOR 0.9% 1000 ML INJ 1,000 ML IV SCH (06:45)
[2017-02-15] MEDS ORDERED: BISACODYL 10 MG SUPP RECTAL ONE (07:45)
--- NOTE | 2017-02-15 08:36 | HHI.PR ---
Neuropsych Emotional Emotional: UnabletoAssess: Emotional, Anxious/Fearful, Depressed/Sad, Hostile/ Resentful, Irritable/Angry/Frustrate, Labile, Constricted/Blunted Behavior Behavior: Unable to Asses: Behavior, Coping/Acceptance, Cooperative w/ Treatment, Motivation, Frustration Tolerance/[place], Impulsive/Agitated, Suicidal/ Homicidal Risk Cognitive Cognitive: Unable to Asses: Cognitive, Attention/Concentration, Confused/ Orientation, Insight/Awareness, Judgement/Problem-Solving, Memory Psychosocial Psychosocial: Intact: Psychosocial, Moderate: Family/Other Adjustment, Realistic Expectation, Unable to Asses: Self-Esteem/Confidence Progress Notes/Response to Tx Contents of Sessions: Adjustment, Level of Consciousness Time with Patient: 15 minutes Premorbid psychological status Premorbid Cognitive, Emotional and Behavioral Status: Deferred. No family present to ascertain premorbid abilities. Behavioral Reactions of Patient and Family/Support System: Deferred. The patients family is likley experiencing ongoing issues of adjustment given the nature of the injury, and this aspect of recovery will require ongoing monitoring. Emotional/Behavioral Status of Patient and Family/Support System: Deferred. Pertinent issues, if appropriate to this patients clinical care, are described in detail above. Maximizing acute care outcome It is recommended that the patient be monitored for emergent behavioral impulsivity as the medical condition evolves. This patients neuropathological challenges may limit their rehabilitation potential going forward, and these challenges will require specialized therapeutic skills to maximize outcome. Additionally, the patients family is experiencing ongoing issues of adjustment given the traumatic nature of the injury, and they may benefit from ongoing psychological assistance. Anticipated Problems Ongoing areas of concern will include behavioral impulsivity, lack of insight and judgment, which is expected to improve with time and treatment. Presently , the patient unresponsive, intubated and sedated. Treatment Plan This clinician will continue to follow with you throughout the course of this patients acute care treatment, and I will be available to meet with the patient s family/support system to facilitate their understanding and the ongoing care of their family member. The goals of neuropsychological intervention shall be both educational and supportive to the family/support system as is deemed clinically appropriate. [facility] Level: II:General response-total assist Impression This is a 46 year old woman s/p TBI 2T fall on 01/27/2017, with large left temporoparietal SDH, right basal skull fracture through petrous bone with extrusion of brain matter on the right, and is s/p DC/ventriculostomy placement. 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 This is day 19 post injury. The patient has exhibited no neurobehavioral change and remains at a [place]. Trauma team consensus is to continue Amantadine 100 q 0700 and 1200, but there has been no neurobehavioral improvement with this medication. She remains a [place]. I will continue to follow. Luis Murphy PhD Feb 15, 2017 8:36 am
[2017-02-15] MEDS: FAMOTIDINE 20 MG TAB NG SCH ×2 (09:00→22:58)
[2017-02-15] MEDS: BISACODYL 10 MG SUPP RECTAL SCH (09:00)
[2017-02-15] MEDS: BACITRACIN TOP OINT 15 GM TUBE TOPICAL SCH ×2 (09:00→21:00)
[2017-02-15] MEDS: DOCUSATE SODIUM 50 MG/SENNA 8.6 MG TAB PO SCH ×2 (09:00→22:58)
[2017-02-15] MEDS: AMANTADINE HCL SOLN 100 MG/10 ML UDC NG SCH (09:00)
[2017-02-15] MEDS: CHLORHEXIDINE 0.12% (ORAL KIT) 15 ML CUP MT SCH (09:01)
[2017-02-15] MEDS: SODIUM CHLORIDE 1 GRAM TAB PO SCH (09:01)
[2017-02-15] MEDS: SODIUM CHLORIDE 0.9% FLUSH 10 ML FLUSH IV FLUSH SCH ×2 (09:04→21:00)
--- NOTE | 2017-02-15 11:51 | HHI.PR ---
Subjective Subjective Notes PTD: 19 In bed w/ FILM FLAT INSPECTOR. OPens eyes to voice. Questionable tracking of staff in room. Withdraws to pain in all 4 extremities. Objective Vitals/I&O Vital Signs Date Time Temp Pulse Resp B/P Pulse Ox O2 Delivery O2 Flow Rate FiO2 02/15/17 11:45 98.5 105 24 147/71 98 02/15/17 08:00 Trach Collar 6.00 35 Labs Date/Time Procedure Status Source Growth 02/13/17 07:44 Aerobic Blood Culture - Preliminary Resulted Blood Peripheral NO GROWTH IN 2 DAYS 02/13/17 07:44 Anaerobic Blood Culture - Preliminary Resulted Blood Peripheral NO GROWTH IN 2 DAYS 02/12/17 11:22 Urine Culture - Final Complete Urine Clean Catch NO GROWTH IN 48 HOURS. Radiology Last Impressions Chest X-Ray 02/14/17 0600 Signed Impressions: Service Date/Time: Tuesday, February 14, 2017 04:56 - CONCLUSION: 1. Bilateral perihilar densities. 2. Removal right sided chest tube. No significant pneumothorax. Eb Guerin MD Head CT 02/10/17 0600 Signed Impressions: Service Date/Time: Friday, February 10, 2017 04:19 - CONCLUSION: 1. 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 2. Bilateral temporal hypodensities are stable. Pierre Holt MD Brain MRI 02/06/17 0000 Signed Impressions: Service Date/Time: Monday, February 06, 2017 21:31 - CONCLUSION: 1. Postoperative partial left craniectomy for decompression and evacuation of left subdural hematoma. There is some residual subdural hematoma present predominantly posteriorly in the occipital region and posterior fossa. 2. Bilateral temporal lobe contusions with measurements given above. Scattered subarachnoid hemorrhage. 3. Fluid in the temporal bones bilaterally and in the sphenoid sinus. There minimal right to left midline shift. Multiple hemosiderin deposits noted on the susceptibility weighted images especially over both convexities and on the left side laterally. Juan Bajwa MD Upper Extremity Ultrasound 02/04/17 0000 Signed Impressions: Service Date/Time: February 07:52 - CONCLUSION: No DVT is identified. Please note that portions of the basilic and cephalic vein are not visualized. Emerson Mariee MD Hand X-Ray 02/02/17 0000 Signed Impressions: Service Date/Time: Thursday, February 02, 2017 14:00 - CONCLUSION: No acute left hand abnormality is identified. Emerson Mariee MD Thoracic Spine CT 01/27/171699 Signed Impressions: Service Date/Time: Friday, January 27, 2017 17:20 - CONCLUSION: 1. No fracture or subluxation. 2. Minimal subcutaneous emphysema seen within the upper neck likely related to patient's temporal bone fracture. Eb Guerin MD Pelvis X-Ray 01/27/171699 Signed Impressions: Service Date/Time: Friday, January 27, 2017 16:54 - CONCLUSION: 1. Left pubic rami fractures. Otoniel Crain MD Lumbar Spine CT 01/27/171699 Signed Impressions: Service Date/Time: Friday, January 27, 2017 17:20 - CONCLUSION: 1. No fracture or subluxation of the lumbar spine. 2. There are fractures of the right sacrum discussed in detail on CT the abdomen/pelvis. Eb Guerin MD Chest CT 01/27/171699 Signed Impressions: Service Date/Time: Friday, January 27, 2017 17:25 - CONCLUSION: 1. Comminuted fracture involving the right scapula. 2. Minimal posterior atelectatic changes bilaterally. Juan Carlos Jc MD Cervical Spine CT 01/27/171699 Signed Impressions: Service Date/Time: Friday, January 27, 2017 17:24 - CONCLUSION: 1. No acute fracture or prevertebral soft tissue swelling. 2. Straightening of the normal cervical lordosis. 3. Cervical spondylosis from C3 through C6. 4. Mild bilateral foraminal narrowing at C3-4, C4-5 and C5-6. Juan Carlos Jc MD Abdomen/Pelvis CT 01/27/171699 Signed Impressions: Service Date/Time: Friday, January 27, 2017 17:25 - CONCLUSION: 1. Acute fractures along the right sacrum as well as the left superior and inferior pubic rami. 2. No intra-abdominal trauma identified. Juan Carlos Jc MD Radius/Ulna X-Ray 01/27/17 0000 Signed Impressions: Service Date/Time: Friday, January 27, 2017 16:54 - CONCLUSION: Soft tissue swelling involving the right mid forearm without underlying radial or ulnar fracture. Juan Carlos Jc MD Narrative Exam GENERAL: This is a 46-year-old female lying in bed. FILM FLAT INSPECTOR in place. SKIN: Warm and dry. HEAD: Atraumatic. Normocephalic. EYES: PERRLA ENT: No nasal bleeding or discharge. Mucous membranes pink and moist. NECK: FILM FLAT INSPECTOR. Trachea midline. No JVD. CARDIOVASCULAR: Regular rate and rhythm. RESPIRATORY: No accessory muscle use. Lungs are clear to auscultation. Breath sounds equal bilaterally. No distress or dyspnea. GASTROINTESTINAL: BS + x 4 quads. Abdomen soft, non-tender, nondistended. PEG tube in place. Sanchez catheter in place to bedside drainage bag. MUSCULOSKELETAL: Extremities without cyanosis, or edema. + peripheral pulses x 4 extremities. Warm with good capillary refill. NEUROLOGICAL: FILM FLAT INSPECTOR. Opens eyes to voice. Withdraws to pain in all 4 extremities. A/P Problem List: (1) Acute subdural hematoma (2) Traumatic brain injury (3) Pneumothorax (4) Encephalopathy (5) Pain (6) Basilar skull fracture (7) Fracture of left pelvis (8) Sacral fracture (9) Right scapula fracture Assessment and Plan [place]: This is a 46-year-old female who sustained a fall. She fell through the attic floor. Unresponsive. GCS 3. Pupils: L=6, R=1. Intubated in the ED INJURIES: RIGHT temporal bone fx LEFT SDH (w/ 16 mm shift) RIGHT scapula fx (non-op) RIGHT sacrum fx (non-op) LEFT pubic rami fx(non-op) Procedures: 01/27: LEFT decompressive craniectomy 02/03: EVD removed 02/04: [place] removed R CT placed (CL related PTX) 02/02: R CT dislodged and found in bed 02/03: RIGHT lateral pigtail placed 02/04: Right anterior pigtail placed (still had PTX) 02/09: R lateral CT dislodged and found in bed 02/11: PEG 02/11: FILM FLAT INSPECTOR Consults: CCM. Neurosurgery. Orthopedics. Infectious disease. Pharmacy. Rehabilitation medicine. Neuropsych. Palliative care. Case management. Diet: Vital 1.5@50 mL/HR per soil fertility specialist's recommendation. Tolerating well. Pulmonary: Trach collar at 28%. Encourage staff to perform good pulmonary toileting. L&S via trach q 4 hrs and PRN. Request RN to document frequency, amount, consistency and color of sputum. PAIN Management: [place] 5 mg q6h. Activity: OOB to stretcher chair TID. PT and OT ordered GI prophylaxis: Pepcid BID. Bowel regimen: Shannon-colace BID. Add MOM HS. Lactulose. Bisacodyl NC PRN LBM : 02/12. Intensified with bisacodyl NC 1 dose today. Maintain Sanchez catheter due to prolonged immobilization. DVT prophylaxis: Mechanical VTE with SCDs. Chemical management with Lovenox 30 BID SQ. DC Planning: Case management consulted for assistance with final discharge disposition. Patient will need long-term placement. Emotional support provided to patient and family at bedside and plan of care discussed. Discussed with RN at bedside. Patient is hemodynamically stable and managed on the med/surg floor in a room close to the nursing station due to her trach. The trauma team will round each day, and evaluate plan of care on a daily basis. RIGHT temporal bone fx LEFT SDH (w/ 16 mm shift) Neurosurgery consulted and assisting in management and care Serial neuro checks Pain management Amantadine 100 mg BID Valproic acid 250 mg TID FILM FLAT INSPECTOR placement PEG placement Will need full-time SNF placement RIGHT scapula fx (non-op) RIGHT sacrum fx (non-op) LEFT pubic rami fx(non-op) Orthopedics consulted and assisting in management and care All injuries were nonoperative at this point Pain management OOB to stretcher chair PT and OT ordered Remarks seen and examined with RETAIL BRANCH MANAGER-agree with assessment and plan eyes open-not tracking at time of my exam TC continue amantadine tube feeds Problem Qualifiers (1) Traumatic brain injury: Qualified Code: S06.9X9D - Traumatic brain injury with loss of consciousness, subsequent encounter (2) Pneumothorax: Qualified Code: J93.9 - Pneumothorax, unspecified type (3) Basilar skull fracture: Qualified Code: S02.101A - Closed fracture of right side of base of skull, initial encounter (4) Fracture of left pelvis: Qualified Code: S32.502A - Closed nondisplaced fracture of left pubis, initial encounter (5) Sacral fracture: Qualified Code: S32.19XA - Other closed fracture of sacrum, initial encounter (6) Right scapula fracture: Qualified Code: S42.191A - Closed fracture of other part of right scapula, initial encounter Deysi Rodrigues Feb 15, 2017 11:51 Antoinette Garner MD Feb 15, 2017 15:44
[2017-02-15] MEDS: AMANTADINE HCL SOLN 100 MG/10 ML UDC PO SCH (12:00)
--- NOTE | 2017-02-15 12:00 | HHI.NSPN ---
(Marques MorenoCash CHRIS) History Chief Complaint: Unable to obtain due to clinical condition. (Marques Moreno) Interval History 01/27: Patient is a middle-aged female who according to her family fell through a garage ceiling landing on the floor one-story down. Positive loss of consciousness. Patient was reportedly unresponsive immediately after the event. No seizure activity reported. She was GCS 3-4 at the scene and brought to [facility] emergency room as a trauma alert per EMS. She was intubated in the emergency room. She was noted to have a fixed dilated left pupil and pinpoint right pupil in the emergency room on initial evaluation. The undersigned reviewed the patient's CT scan images shortly after completion while the patient was in the CT scanning suite. Images revealed a large left hemispheric acute subdural hematoma with approximate 16 mm midline shift, significant effacement of the left ventricle and cisterns. Patient was taken emergently to the operating room from the CT scanning suite. 01/28: The patient is intubated and mechanically ventilated with propofol & fentanyl for sedation. She is on norepinephrine for blood pressure support which Nursing states she is titrating down. Nursing also reported that the patient did squeeze with her hands this morning. The patient was transfused this morning for a haemoglobin of 7.4. 01/29: The patient remains intubated and mechanically ventilated. The propofol & fentanyl drips have been off since 929 this morning. She is no longer on any vasopressors. Saline 3% is infusing. Nursing states she is withdrawing but has not had any eye opening. ICP has been running 4 to 5 on the ventriculostomy per Nursing and that the bolt pressure is not being used since it was reportedly not in proper position. Nursing also reports excessive drainage from the ventriculostomy. 01/30: Patient intubated on minimal sedation. Not opening eyes to verbal or tactile stimulation 01/31: Patient remains intubated on minimal sedation. At this point she is opening her eyes and tracking to verbal stimulation. 02/01: The patient continues to be intubated and mechanically ventilated. The fentanyl was discontinued this morning.Nursing reported that the left pupil appeared slightly larger this morning and that the ventriculostomy ICP has been ranging between 5 and 10. 8: The patient is still intubated and mechanically ventilated. She remains off any sedation. Nursing reported that she did follow commands to move the right hand once yesterday. When an EEG was done yesterday the tech reported to Nursing that there was fresh blood to the right side of the head. 02/03: The patient remains intubated and mechanically ventilated. She is noted to be moving the right side extremities spontaneously. Nursing reports that she also was withdrawing on the left to noxious stimuli. The Enologist is preparing to replace the chest tube. The patient did spike a temperature to 103.1 yesterday afternoon. 3: The patient is still intubated and mechanically ventilated. She is moving the right lower extremity spontaneously. Nursing reports no response to stimuli with the left upper extremity, otherwise she is withdrawing still. The ventriculostomy was withdrawn yesterday due to Gram variable rods noted on the Gram stain off the CSF specimen sent for culture when she spiked her temperature on . 8/5: intubated, sedation off. not opening eyes or following command. withdraws x 4. 8/6: MRI Brain completed yesterday, otherwise no changes to neuro checks overnight 02/08: When seen this morning the patient was intubated and mechanically ventilated. She was not on any drips for sedation. Respiratory was present in the room and was going to place her on CPAP. 02/09: The patient remains intubated and mechanically ventilated when seen this afternoon. Nursing reports that the patient failed a CPAP trial and went apneic. The plan is to do a trach tomorrow according to Nursing. 02/10: This afternoon the patient is intubated and on CPAP. 02/11: The patient is sedated when seen due to having a tracheostomy done at the bedside just prior to her being seen. During the morning the patient also had a PEG tube done at the bedside. 02/13: The patient is trached and on a T-piece when seen this morning. She is noted to have the left eye partially opened. She is not on any sedation. 02/15: The patient is awake when seen but doesn't respond to verbal stimuli. She is on a T-piece. She was transferred from the [facility] to a regular med/surg floor yesterday. (Marques Moreno) System Review Comments Unable to obtain due to clinical condition. (Marques Moreno) Exam Results Vital Signs Date Time Temp Pulse Resp B/P Pulse Ox O2 Delivery O2 Flow Rate FiO2 02/15/17 11:45 98.5 105 24 147/71 98 02/15/17 08:00 Trach Collar 6.00 35 Intake and Output 02/14/17 02/14/17 02/15/17 08:00 16:00 00:00 Intake Total 1322 ml Output Total 1850.0 ml 1300 ml Balance -528.0 ml -1300 ml (Marques Moreno) Physical Examination GENERAL: The patient is trached and on a T-piece w/o any sedation. NAD. SKIN: Skin warm & dry. Multiple abrasions healing w/o complication. HEENT: Well approximated left-sided craniotomy, w/o any evident drainage, erythema or streaking. Flap soft. NECK: No JVD, trachea midline, tracheostomy in place. CARDIOVASCULAR: Radial & pedal pulses 2+ bilaterally, cap refill < 2 sec, no pedal edema. RESPIRATORY: Equal excursion, nonlaboured, trached and on a T-piece. GASTROINTESTINAL: Abdomen soft,PEG tube w/enteral feeds. MUSCULOSKELETAL: Scattered abrasions & ecchymosis. No evident deformities or clubbing. NEUROLOGICAL: GCS 8-9T (E4 V1T M3-4). Eyes open. No tracking with eyes. No spontaneous movement noted. BLE & LUE with flexion to localised noxious stimuli but no response w/RUE. (Marques Moreno) Medical Decision Making Impression and Plan Impression: 1. Severe acute left hemisphere subdural hematoma with severe midline shift and mass effect. 2. Right temporal bone fracture-nondisplaced Leukocytosis, resolved Anaemia, improved (7.9=>9.1) Thrombocytosis, interval increase (611=>721) Thrombocytopenia, resolved Sodium 144 Hypokalemia resolved eGFR WNL Hypophosphatemia,resolved CT brain demonstrates no significant change in the left SDH or the right temporal lobe low attenuation region compared to . MRI brain demonstrates some residual left SDH to occipital region & posterior fossa, bilateral temporal lobe contusions & scattered SAH, with a minimal right to left shift. There are multiple haemosiderin deposits noted on susceptibility weighted images over both convexities and the left lateral. 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 T max 100.8 yesterday afternoon. Patient with stable put poor neurological response. POD #19 () s/p: 1. Left decompressive frontotemporoparietal craniotomy for evacuation of acute subdural hematoma. 2. Left frontal ventriculostomy catheter placement 3. Left frontal twist drill for intracranial pressure monitor placement Plan: Primary management per Enologist/Trauma. Continue neuro checks. Stat CT brain for worsening neuro status. Seizure prophylaxis. Ulcer prophylaxis. Continue non chemical DVT prophylaxis. Okay for Lovenox. CT brain in AM. (Marques Moreno) Attending Statement The exam, history, and the medical decision-making described in the above note were completed with the assistance of the mid-level provider. I reviewed and agree with the findings presented. I attest that I had a [id number] encounter with the patient on the same day, and personally performed and documented my assessment and findings in the medical record. Remains with very minimal response on exam Now on T piece Palliative care Very poor prognosis (Nic Bahena MD) Marques Moreno Feb 15, 2017 12:00 Nic Bahena MD Apr 12, 2017 08:05
[2017-02-15] MEDS: MAGNESIUM HYDROXIDE SUSP 30 ML CUP PO SCH (22:58)
[2017-02-16] VITALS (7 sets, daily range): BP systolic 124–135; BP diastolic 59–84; PULSE 101–112; RESP 20; TEMP 98.8–99.5; O2SAT 96–100
[2017-02-16] MEDS: CEFEPIME INJ 2,000 MG in SODIUM CHLORIDE 0.9% INJ 100 ML IV SCH ×3 (00:30→18:40)
[2017-02-16] MEDS: VANCOMYCIN 1,000 MG/NS 250 ML IV SCH ×6 (02:24→18:43)
[2017-02-16] MEDS: ENOXAPARIN SODIUM 30 MG/0.3 ML SYRINGE SQ SCH ×2 (02:25→13:34)
[2017-02-16] MEDS: SODIUM CHLOR 0.9% 1000 ML INJ 1,000 ML IV SCH ×2 (02:45→22:45)
[2017-02-16] MEDS: CHLORHEXIDINE 0.12% (ORAL KIT) 15 ML CUP MT SCH ×2 (08:00→20:00)
[2017-02-16] MEDS: DOCUSATE SODIUM 50 MG/SENNA 8.6 MG TAB PO SCH ×2 (09:00→20:12)
[2017-02-16] MEDS: BACITRACIN TOP OINT 15 GM TUBE TOPICAL SCH ×2 (09:00→20:15)
[2017-02-16] MEDS: BISACODYL 10 MG SUPP RECTAL SCH (09:00)
--- NOTE | 2017-02-16 09:05 | RADRPT ---
EXAM DATE/TIME: 02/16/2017 07:55 [facility] COMPARISON: CT BRAIN W/O CONTRAST, January 28, 2017, 15:14. MRI BRAIN W/O CONTRAST, February 06, 2017, 21:31. CT BRA IN W/O CONTRAST, February 10, 2017, 4:19. INDICATIONS : Follow up hemorrhage. RADIATION DOSE: 31.40 CTDIvol (mGy) MEDICAL HISTORY : Intracranial hemorrhage. SURGICAL HISTORY : Craniotomy. ENCOUNTER: Subsequent ACUITY: 3 weeks PAIN SCALE: Non-responsive LOCATION: cranial TECHNIQUE: Multiple contiguous axial images were obtained of the head. Using automated exposure control and adj ustment of the mA and/or kV according to patient size, radiation dose was kept as low as reasonably a chievable to obtain optimal diagnostic quality images. DICOM format image data is available electro nically for review and comparison. FINDINGS: CEREBRUM: The patient is status post left frontal craniotomy. There continues to be low density in the medial f rontal lobes bilaterally in the parafalcine regions. Is further extension of low density in the anter ior left frontal lobe. There is persistent low-density seen in the left posterior temporal lobe. Ther e are smaller areas of low density seen in the occipital lobes bilaterally being worse on the left. T here is a smaller low density in the right cerebral peduncle. The ventricles are normal for age. The re is 5 mm above right to left shift at the level of the septum pellucidum. The basal cisterns are op en. A focal extra-axial fluid collection is not seen.. No acute areas of hemorrhage are seen. POSTERIOR FOSSA: The cerebellum and brainstem are intact. The 4th ventricle is midline. The cerebellopontine angle i s unremarkable. EXTRACRANIAL: The visualized portion of the orbits is intact. There is persistent but improving hemorrhage seen in the left sphenoid sinus. SKULL: The patient is status post left craniotomy. There is a right temporal bone fracture. There is fluid i n the mastoid air cells bilaterally. CONCLUSION: 1. Persistent areas of present infarction in the parafalcine region bilaterally, left frontal lobe an d left temporal lobe. 2. There appear to be new areas of low density likely representing infarctions in the occipital lobes bilaterally. 3. Status post decompressive left craniotomy. Emerson Romero MD on February 16, 2017 at 8:50 Board Certified Radiologist. This report was verified electronically.
[2017-02-16] MEDS: AMANTADINE HCL SOLN 100 MG/10 ML UDC NG SCH (10:02)
[2017-02-16] MEDS: SODIUM CHLORIDE 0.9% FLUSH 10 ML FLUSH IV FLUSH SCH ×2 (10:03→20:12)
[2017-02-16] MEDS: SODIUM CHLORIDE 1 GRAM TAB PO SCH (10:04)
[2017-02-16] MEDS: FAMOTIDINE 20 MG TAB NG SCH ×2 (10:04→20:15)
--- NOTE | 2017-02-16 12:01 | HHI.PR ---
Subjective Subjective Notes PTD: 20 Pt lying in bed. at bedside PT at bedside to get pt OOB in a chair. Pt will open eyes to loud voice. Withdraws to pain in all 4 extremities. Objective Vitals/I&O Vital Signs Date Time Temp Pulse Resp B/P Pulse Ox O2 Delivery O2 Flow Rate FiO2 02/16/17 11:43 99.5 111 20 126/59 99 02/16/17 08:00 Trach Collar 6.00 35 Labs Date/Time Procedure Status Source Growth 02/13/17 07:44 Aerobic Blood Culture - Preliminary Resulted Blood Peripheral NO GROWTH IN 3 DAYS 02/13/17 07:44 Anaerobic Blood Culture - Preliminary Resulted Blood Peripheral NO GROWTH IN 3 DAYS 02/12/17 11:22 Urine Culture - Final Complete Urine Clean Catch NO GROWTH IN 48 HOURS. Radiology Last [address] 02/16/17 0600 Signed Impressions: Service Date/Time: Thursday, February 16, 2017 07:55 - CONCLUSION: 1. Persistent areas of present infarction in the parafalcine region bilaterally, left frontal lobe and left temporal lobe. 2. There appear to be new areas of low density likely representing infarctions in the occipital lobes bilaterally. 3. Status post decompressive left craniotomy. Emerson Romero MD Narrative Exam GENERAL: This is a 46-year-old female lying in bed. MARKETING DATABASE ANALYST in place. SKIN: Warm and dry. HEAD: Atraumatic. Normocephalic. EYES: PERRLA ENT: No nasal bleeding or discharge. Mucous membranes pink and moist. NECK: MARKETING DATABASE ANALYST. Trachea midline. No JVD. CARDIOVASCULAR: Regular rate and rhythm. RESPIRATORY: No accessory muscle use. Lungs are clear to auscultation. Breath sounds equal bilaterally. No distress or dyspnea. GASTROINTESTINAL: BS + x 4 quads. Abdomen soft, non-tender, nondistended. PEG tube in place. Sanchez catheter in place to bedside drainage bag. MUSCULOSKELETAL: Extremities without cyanosis, or edema. + peripheral pulses x 4 extremities. Warm with good capillary refill. NEUROLOGICAL: MARKETING DATABASE ANALYST. Opens eyes to voice. Withdraws to pain in all 4 extremities. A/P Problem List: (1) Acute subdural hematoma (2) Traumatic brain injury (3) Pneumothorax (4) Encephalopathy (5) Pain (6) Basilar skull fracture (7) Fracture of left pelvis (8) Sacral fracture (9) Right scapula fracture Assessment and Plan HABEMATOLEL: This is a 46-year-old female who sustained a fall. She fell through the attic floor. Unresponsive. GCS 3. Pupils: L=6, R=1. Intubated in the ED INJURIES: RIGHT temporal bone fx LEFT SDH (w/ 16 mm shift) RIGHT scapula fx (non-op) RIGHT sacrum fx (non-op) LEFT pubic rami fx(non-op) Procedures: 01/27: LEFT decompressive craniectomy 02/03: EVD removed 02/04: Lacon removed R CT placed (CL related PTX) 02/02: R CT dislodged and found in bed 02/03: RIGHT lateral pigtail placed 02/04: Right anterior pigtail placed (still had PTX) 02/09: R lateral CT dislodged and found in bed 02/11: PEG 02/11: MARKETING DATABASE ANALYST Consults: CCM. Neurosurgery. Orthopedics. Infectious disease. Pharmacy. Rehabilitation medicine. Neuropsych. Palliative care. Case management. Diet: Vital 1.5@50 mL/HR per brick kiln burner's recommendation. Tolerating well. Pulmonary: Trach collar at 28%. Encourage staff to perform good pulmonary toileting. L&S via trach q 4 hrs and PRN. Request RN to document frequency, amount, consistency and color of sputum. PAIN Management: [place] 5 mg q6h PRN. Activity: OOB to stretcher chair TID. PT and OT ordered. Roho cushion ordered for when patient is in stretcher chair. Patient remains flaccid in all 4 extremities - receives passive range of motion. To prevent skin breakdown. GI prophylaxis: Pepcid BID. Bowel regimen: Shannon-colace BID. MOM HS. Lactulose. Bisacodyl NH PRN LBM: . Maintain Sanchez catheter due to prolonged immobilization. DVT prophylaxis: Mechanical VTE with SCDs. Chemical management with Lovenox 30 BID SQ. DC Planning: Case management consulted for assistance with final discharge disposition. Patient will need long-term placement. Patient has been accepted by [facility], awaiting insurance authorization. Emotional support provided to patient and at bedside and plan of care discussed. Discussed with RN at bedside. Patient is hemodynamically stable and managed on the med/surg floor in a room close to the nursing station due to her trach. The trauma team will round each day, and evaluate plan of care on a daily basis. RIGHT temporal bone fx LEFT SDH (w/ 16 mm shift) Neurosurgery consulted and assisting in management and care Serial neuro checks 02/16: Follow up head CT: Persistent areas of present infarction in the parafalcine region bilaterally - Left frontal lobe and left temporal lobe. There appears to be new areas of low density likely representing infarctions in the occipital lobes bilaterally. Pain management Amantadine 100 mg BID Valproic acid 250 mg TID MARKETING DATABASE ANALYST placement PEG placement Will need full-time SNF placement - patient has been accepted by [facility]. Awaiting insurance authorization RIGHT scapula fx (non-op) RIGHT sacrum fx (non-op) LEFT pubic rami fx(non-op) Orthopedics consulted and assisting in management and care All injuries were nonoperative at this point Pain management OOB to stretcher chair PT and OT ordered Remarks seen and examined with STUDIO COORDINATOR-agree with assessment and plan CT scan of the head reviewed eyes open starting to track continue tube feeds PT/OT ID -abx plan noted Problem Qualifiers (1) Traumatic brain injury: Qualified Code: S06.9X9D - Traumatic brain injury with loss of consciousness, subsequent encounter (2) Pneumothorax: Qualified Code: J93.9 - Pneumothorax, unspecified type (3) Basilar skull fracture: Qualified Code: S02.101A - Closed fracture of right side of base of skull, initial encounter (4) Fracture of left pelvis: Qualified Code: S32.502A - Closed nondisplaced fracture of left pubis, initial encounter (5) Sacral fracture: Qualified Code: S32.19XA - Other closed fracture of sacrum, initial encounter (6) Right scapula fracture: Qualified Code: S42.191A - Closed fracture of other part of right scapula, initial encounter Deysi Rodrigues Feb 16, 2017 12:01 Antoinette Garner MD Feb 16, 2017 15:17 LEFT SDH (w/ 16 mm shift) RIGHT scapula fx (non-op) RIGHT sacrum fx (non-op) LEFT pubic rami fx(non-op) Procedures: 01/27: LEFT decompressive craniectomy 02/03: EVD removed 02/04: Lacon removed R CT placed (CL related PTX) 02/02: R CT dislodged and found in bed 02/03: RIGHT lateral pigtail placed 02/04: Right anterior pigtail placed (still had PTX) 02/09: R lateral CT dislodged and found in bed 02/11: PEG 02/11: MARKETING DATABASE ANALYST Consults: CCM. Neurosurgery. Orthopedics. Infectious disease. Pharmacy. Rehabilitation medicine. Neuropsych. Palliative care. Case management. Diet: Vital 1.5@50 mL/HR per brick kiln burner's recommendation. Tolerating well. Pulmonary: Trach collar at 28%. Encourage staff to perform good pulmonary toileting. L&S via trach q 4 hrs and PRN. Request RN to document frequency, amount, consistency and color of sputum. PAIN Management: [place] 5 mg q6h. Activity: OOB to stretcher chair TID. PT and OT ordered GI prophylaxis: Pepcid BID. Bowel regimen: Shannon-colace BID. Add MOM HS. Lactulose. Bisacodyl NH PRN LBM : 02/12. Intensified with bisacodyl NH 1 dose today. Maintain Sanchez catheter due to prolonged immobilization. DVT prophylaxis: Mechanical VTE with SCDs. Chemical management with Lovenox 30 BID SQ. DC Planning: Case management consulted for assistance with final discharge disposition. Patient will need long-term placement. Emotional support provided to patient and family at bedside and plan of care discussed. Discussed with RN at bedside. Patient is hemodynamically stable and managed on the med/surg floor in a room close to the nursing station due to her trach. The trauma team will round each day, and evaluate plan of care on a daily basis. RIGHT temporal bone fx LEFT SDH (w/ 16 mm shift) Neurosurgery consulted and assisting in management and care Serial neuro checks Pain management Amantadine 100 mg BID Valproic acid 250 mg TID MARKETING DATABASE ANALYST placement PEG placement Will need full-time SNF placement RIGHT scapula fx (non-op) RIGHT sacrum fx (non-op) LEFT pubic rami fx(non-op) Orthopedics consulted and assisting in management and care All injuries were nonoperative at this point Pain management OOB to stretcher chair PT and OT ordered Problem Qualifiers (1) Traumatic brain injury: Qualified Code: S06.9X9D - Traumatic brain injury with loss of consciousness, subsequent encounter (2) Pneumothorax: Qualified Code: J93.9 - Pneumothorax, unspecified type (3) Basilar skull fracture: Qualified Code: S02.101A - Closed fracture of right side of base of skull, initial encounter (4) Fracture of left pelvis: Qualified Code: S32.502A - Closed nondisplaced fracture of left pubis, initial encounter (5) Sacral fracture: Qualified Code: S32.19XA - Other closed fracture of sacrum, initial encounter (6) Right scapula fracture: Qualified Code: S42.191A - Closed fracture of other part of right scapula, initial encounter Deysi Rodrigues Feb 16, 2017 12:01
--- NOTE | 2017-02-16 12:19 | HHI.PR ---
Neuropsych Emotional Emotional: UnabletoAssess: Emotional, Anxious/Fearful, Depressed/Sad, Hostile/ Resentful, Irritable/Angry/Frustrate, Labile, Constricted/Blunted Behavior Behavior: Unable to Asses: Behavior, Coping/Acceptance, Cooperative w/ Treatment, Motivation, Frustration Tolerance/[place], Impulsive/Agitated, Suicidal/ Homicidal Risk Cognitive Cognitive: Unable to Asses: Cognitive, Attention/Concentration, Confused/ Orientation, Insight/Awareness, Judgement/Problem-Solving, Memory Psychosocial Psychosocial: Intact: Psychosocial, Family/Other Adjustment, Realistic Expectation, Unable to Asses: Self-Esteem/Confidence Progress Notes/Response to Tx Contents of Sessions: Adjustment, Level of Consciousness Time with Patient: 30 minutes Premorbid psychological status Premorbid Cognitive, Emotional and Behavioral Status: Deferred. No family present to ascertain premorbid abilities. Behavioral Reactions of Patient and Family/Support System: Deferred. The patients family is likley experiencing ongoing issues of adjustment given the nature of the injury, and this aspect of recovery will require ongoing monitoring. Emotional/Behavioral Status of Patient and Family/Support System: Deferred. Pertinent issues, if appropriate to this patients clinical care, are described in detail above. Maximizing acute care outcome It is recommended that the patient be monitored for emergent behavioral impulsivity as the medical condition evolves. This patients neuropathological challenges may limit their rehabilitation potential going forward, and these challenges will require specialized therapeutic skills to maximize outcome. Additionally, the patients family is experiencing ongoing issues of adjustment given the traumatic nature of the injury, and they may benefit from ongoing psychological assistance. Anticipated Problems Ongoing areas of concern will include behavioral impulsivity, lack of insight and judgment, which is expected to improve with time and treatment. Presently , the patient unresponsive, intubated and sedated. Treatment Plan This clinician will continue to follow with you throughout the course of this patients acute care treatment, and I will be available to meet with the patient s family/support system to facilitate their understanding and the ongoing care of their family member. The goals of neuropsychological intervention shall be both educational and supportive to the family/support system as is deemed clinically appropriate. [facility] Level: II:General response-total assist Impression This is a 46 year old woman s/p TBI 2T fall on 01/27/2017, with large left temporoparietal SDH, right basal skull fracture through petrous bone with extrusion of brain matter on the right, and is s/p DC/ventriculostomy placement. 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 This is day 20 post injury. The patient does open her eyes to voice but very questionable tracking observed. Neurobehaviorally, this patient remains at a [facility]. I was able to discuss neurobehavioral progress with the patient's , who was bedside, and answer specific questions he had. The patient remains on Amantadine 100 q 0700 and 1200. I will continue to follow. Luis Murphy PhD Feb 16, 2017 12:19 pm
--- NOTE | 2017-02-16 12:30 | HHI.IDPN ---
Subjective Subjective Remarks Patient is a 46-year-old female admitted as a trauma alert sp fall from height She was found to have significant traumatic brain injury, and also had some other fracture including scapular fracture and in the pelvic region. The orthopedic injuries were all being treated conservatively. She underwent emergent surgery on her brain for evacuation of the significant epidural hematoma, placement of a bolt, as well as a ventriculostomy. She has remained on the vent. She was on Unasyn since January 29. Starting February 01 she started having fevers, and no cultures were ordered. CSF culture is showing gram- variable segun on the Gram stain of the broth but it did not grow on culture media. She has been started on cefepime and vancomycin. Patient also has a chest tube for pneumothorax. Her chest x-ray has shown stable findings. Urinalysis unremarkable. She has a central line in the right IJ. Notes reviewed Temps better On T-piece S/P trach and PEG 02/11 Last CXR clear WBC normal Antibiotics Vancomycin Cefepime Lines PIV Past Medical History None Allergies: Coded Allergies: No Known Allergies (Unverified , 01/31/17) per Objective . Vital Signs Date Time Temp Pulse Resp B/P Pulse Ox O2 Delivery O2 Flow Rate FiO2 02/16/17 11:43 99.5 111 20 126/59 99 02/16/17 08:38 99.3 111 20 127/59 98 02/16/17 08:00 110 02/16/17 08:00 Trach Collar 6.00 35 02/16/17 04:00 98.8 110 20 124/61 98 02/16/17 00:00 99.4 108 20 132/84 96 02/15/17 23:18 96 Trach Collar 6.00 28 02/15/17 20:00 99.2 106 20 127/60 99 02/15/17 20:00 105 02/15/17 15:49 99.2 103 20 119/62 99 02/15/17 02/15/17 02/16/17 15:00 23:00 07:00 Intake Total 922 ml Output Total 750 ml 1475 ml 1950 ml Balance -750 ml -553 ml -1950 ml Intake IV Total 577 ml Tube Feeding 345 ml Output Urine Total 750 ml 1475 ml 1950 ml # Bowel Movements 1 Imaging Last Impressions Chest X-Ray 02/11/17 0600 Signed Impressions: Service Date/Time: February 05:17 - CONCLUSION: Clear lungs. Pierre Holt MD Head CT 02/10/17 0600 Signed Impressions: Service Date/Time: Friday, February 10, 2017 04:19 - CONCLUSION: 1. 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 2. Bilateral temporal hypodensities are stable. Pierre Holt MD Brain MRI 02/06/17 0000 Signed Impressions: Service Date/Time: Monday, February 06, 2017 21:31 - CONCLUSION: 1. Postoperative partial left craniectomy for decompression and evacuation of left subdural hematoma. There is some residual subdural hematoma present predominantly posteriorly in the occipital region and posterior fossa. 2. Bilateral temporal lobe contusions with measurements given above. Scattered subarachnoid hemorrhage. 3. Fluid in the temporal bones bilaterally and in the sphenoid sinus. There minimal right to left midline shift. Multiple hemosiderin deposits noted on the susceptibility weighted images especially over both convexities and on the left side laterally. Juan Bajwa MD Upper Extremity Ultrasound 02/04/17 0000 Signed Impressions: Service Date/Time: February 07:52 - CONCLUSION: No DVT is identified. Please note that portions of the basilic and cephalic vein are not visualized. Emerson Mariee MD Hand X-Ray 02/02/17 0000 Signed Impressions: Service Date/Time: Thursday, February 02, 2017 14:00 - CONCLUSION: No acute left hand abnormality is identified. Emerson Mariee MD Thoracic Spine CT 01/27/17 1700 Signed Impressions: Service Date/Time: Friday, January 27, 2017 17:20 - CONCLUSION: 1. No fracture or subluxation. 2. Minimal subcutaneous emphysema seen within the upper neck likely related to patient's temporal bone fracture. Eb Guerin MD Pelvis X-Ray 01/27/17 1700 Signed Impressions: Service Date/Time: Friday, January 27, 2017 16:54 - CONCLUSION: 1. Left pubic rami fractures. Otoniel Crain MD Lumbar Spine CT 01/27/17 1700 Signed Impressions: Service Date/Time: Friday, January 27, 2017 17:20 - CONCLUSION: 1. No fracture or subluxation of the lumbar spine. 2. There are fractures of the right sacrum discussed in detail on CT the abdomen/pelvis. Eb Guerin MD Chest CT 01/27/17 1700 Signed Impressions: Service Date/Time: Friday, January 27, 2017 17:25 - CONCLUSION: 1. Comminuted fracture involving the right scapula. 2. Minimal posterior atelectatic changes bilaterally. Juan Carlos Jc MD Cervical Spine CT 01/27/17 1700 Signed Impressions: Service Date/Time: Friday, January 27, 2017 17:24 - CONCLUSION: 1. No acute fracture or prevertebral soft tissue swelling. 2. Straightening of the normal cervical lordosis. 3. Cervical spondylosis from C3 through C6. 4. Mild bilateral foraminal narrowing at C3-4, C4-5 and C5-6. Juan Carlos Jc MD Abdomen/Pelvis CT 01/27/17 170 Signed Impressions: Service Date/Time: Friday, January 27, 2017 17:25 - CONCLUSION: 1. Acute fractures along the right sacrum as well as the left superior and inferior pubic rami. 2. No intra-abdominal trauma identified. Juan Carlos Jc MD Radius/Ulna X-Ray 01/27/17 0000 Signed Impressions: Service Date/Time: Friday, January 27, 2017 16:54 - CONCLUSION: Soft tissue swelling involving the right mid forearm without underlying radial or ulnar fracture. Juan Carlos Jc MD Physical Exam GENERAL: Comfortable, on T-piece, no interaction SKIN: Warm and dry. No generalized rash HEAD: Incision L side of head is dry, no redness or drainage. Previous tubes site in scalp dry EYES: [place] conjunctiva. No petechia or hemorrhage. Pupils equal, round and reactive to light. No scleral icterus. No injection or drainage. EARS, NOSE AND THROAT: Nose without bleeding or purulent nasal discharge. NECK: Trachea midline. Supple and not tender, no meningeal signs. Trach ok CARDIOVASCULAR: Regular rate and rhythm. No murmurs, rubs or gallops heard RESPIRATORY: Decreased breath sounds at the bases ABDOMEN: Soft, nondistended, No reaction to deep palpation. Bowel sounds present and normoactive. No organomegaly. Intact dressing over PEG EXTREMITIES: No clubbing, cyanosis, or joint effusion. +1 edema. Well perfused and warm. NEUROLOGICAL: No interaction; unresponsive, not following commands PSYCHIATRIC: Unable to assess LINE: No evidence of infection : Sanchez in place urine looks ok Assessment & Plan Remarks IMPRESSION Persistent fevers, source? intermittent fevers, better - Continues to have fevers - last CXR clear - ?CSF - has Acinetobacter and Bacillus; repeat negative; - ?meds, BALLASTER fever TBI, with epidural hematoma S/P OR, has bolt and EVD Respiratory failure Leukocytosis, resolved - CXR negative - nothing new on C/S RECOMMENDATION Continue Vancomycin and Cefepime - will give until 02/17 Monitor temp Monitor progress Clinically improving I will be available prAi Palma MD Feb 16, 2017 12:30
[2017-02-16] MEDS: AMANTADINE HCL SOLN 100 MG/10 ML UDC PO SCH (13:33)
[2017-02-16] MEDS ORDERED: SENN1TAB PO (13:43)
[2017-02-16] MEDS ORDERED: VANC1000P IV (13:43)
[2017-02-16] MEDS ORDERED: AMAN100UDC PO (13:43)
[2017-02-16] MEDS ORDERED: ENOX30P SQ (13:43)
[2017-02-16] MEDS ORDERED: BISA10R RECTAL (13:43)
[2017-02-16] MEDS ORDERED: CEFE2INJ2 IV (13:43)
[2017-02-16] MEDS ORDERED: HYDR-3516 PO (13:43)
[2017-02-16] MEDS ORDERED: AMAN100UDC NG (13:43)
[2017-02-16] MEDS ORDERED: FAMO20TA2 NG (13:43)
[2017-02-16] MEDS ORDERED: MAGN400S PO (13:43)
[2017-02-16] MEDS ORDERED: ACET1TAB86 PO (13:43)
--- NOTE | 2017-02-16 15:48 | HHI.NSPN ---
(Marques MorenoCash CHRIS) History Chief Complaint: Unable to obtain due to clinical condition. (Marques Moreno) Interval History 01/27: Patient is a middle-aged female who according to her family fell through a garage ceiling landing on the floor one-story down. Positive loss of consciousness. Patient was reportedly unresponsive immediately after the event. No seizure activity reported. She was GCS 3-4 at the scene and brought to [facility] emergency room as a trauma alert per EMS. She was intubated in the emergency room. She was noted to have a fixed dilated left pupil and pinpoint right pupil in the emergency room on initial evaluation. The undersigned reviewed the patient's CT scan images shortly after completion while the patient was in the CT scanning suite. Images revealed a large left hemispheric acute subdural hematoma with approximate 16 mm midline shift, significant effacement of the left ventricle and cisterns. Patient was taken emergently to the operating room from the CT scanning suite. 01/28: The patient is intubated and mechanically ventilated with propofol & fentanyl for sedation. She is on norepinephrine for blood pressure support which Nursing states she is titrating down. Nursing also reported that the patient did squeeze with her hands this morning. The patient was transfused this morning for a haemoglobin of 7.4. 01/29: The patient remains intubated and mechanically ventilated. The propofol & fentanyl drips have been off since 929 this morning. She is no longer on any vasopressors. Saline 3% is infusing. Nursing states she is withdrawing but has not had any eye opening. ICP has been running 4 to 5 on the ventriculostomy per Nursing and that the bolt pressure is not being used since it was reportedly not in proper position. Nursing also reports excessive drainage from the ventriculostomy. 01/30: Patient intubated on minimal sedation. Not opening eyes to verbal or tactile stimulation 01/31: Patient remains intubated on minimal sedation. At this point she is opening her eyes and tracking to verbal stimulation. 02/01: The patient continues to be intubated and mechanically ventilated. The fentanyl was discontinued this morning.Nursing reported that the left pupil appeared slightly larger this morning and that the ventriculostomy ICP has been ranging between 5 and 10. 8: The patient is still intubated and mechanically ventilated. She remains off any sedation. Nursing reported that she did follow commands to move the right hand once yesterday. When an EEG was done yesterday the tech reported to Nursing that there was fresh blood to the right side of the head. 02/03: The patient remains intubated and mechanically ventilated. She is noted to be moving the right side extremities spontaneously. Nursing reports that she also was withdrawing on the left to noxious stimuli. The [employer] is preparing to replace the chest tube. The patient did spike a temperature to 103.1 yesterday afternoon. 3: The patient is still intubated and mechanically ventilated. She is moving the right lower extremity spontaneously. Nursing reports no response to stimuli with the left upper extremity, otherwise she is withdrawing still. The ventriculostomy was withdrawn yesterday due to Gram variable rods noted on the Gram stain off the CSF specimen sent for culture when she spiked her temperature on . 8/5: intubated, sedation off. not opening eyes or following command. withdraws x 4. 8/6: MRI Brain completed yesterday, otherwise no changes to neuro checks overnight 02/08: When seen this morning the patient was intubated and mechanically ventilated. She was not on any drips for sedation. Respiratory was present in the room and was going to place her on CPAP. 02/09: The patient remains intubated and mechanically ventilated when seen this afternoon. Nursing reports that the patient failed a CPAP trial and went apneic. The plan is to do a trach tomorrow according to Nursing. 02/10: This afternoon the patient is intubated and on CPAP. 02/11: The patient is sedated when seen due to having a tracheostomy done at the bedside just prior to her being seen. During the morning the patient also had a PEG tube done at the bedside. 02/13: The patient is trached and on a T-piece when seen this morning. She is noted to have the left eye partially opened. She is not on any sedation. 02/15: The patient is awake when seen but doesn't respond to verbal stimuli. She is on a T-piece. She was transferred from the [facility] to a regular med/surg floor yesterday. 02/16: This afternoon the patient is awake when seen. She continues to be on a T- piece. She went for a repeat CT brain this morning demonstrated new areas of low density to the bilateral occipital lobes which may represent infarction as well as the known infarct areas. (Marques Moreno) System Review Comments Unable to obtain due to clinical condition. (Marques Moreno) Exam Results Vital Signs Date Time Temp Pulse Resp B/P Pulse Ox O2 Delivery O2 Flow Rate FiO2 02/16/17 11:43 99.5 111 20 126/59 99 02/16/17 08:00 Trach Collar 6.00 35 Intake and Output 02/15/17 02/15/17 02/16/17 08:00 16:00 00:00 Intake Total 922 ml Output Total 1200 ml 750 ml 1475 ml Balance -1200 ml -750 ml -553 ml (Marques Moreno) Physical Examination GENERAL: The patient is trached and on a T-piece w/o any sedation. NAD. SKIN: Skin warm & dry. Multiple abrasions essentially healed. HEENT: Well approximated left-sided craniotomy, w/o any evident infection. Flap soft. NECK: No JVD, trachea midline, tracheostomy in place. CARDIOVASCULAR: Radial & pedal pulses 2+ bilaterally, cap refill < 2 sec, no pedal edema. RESPIRATORY: Equal excursion, nonlaboured, trached and on a T-piece. GASTROINTESTINAL: Abdomen soft,PEG tube w/enteral feeds. MUSCULOSKELETAL: Scattered abrasions & ecchymosis essentially healed. No evident deformities or clubbing. NEUROLOGICAL: GCS 8-9T (E4 V1T M3-4). Eyes open. Appears to track downward with eyes. No spontaneous movement noted. BLE with flexion/withdrawal to localised noxious stimuli but none w/BUE. With central noxious stimuli withdrawal/flexion to BLE & LUE but not the RUE. (Marques Moreno) Lab, Micro, Other Results Recent Impressions Head CT 02/16/17 0600 Signed Impressions: Service Date/Time: Thursday, February 16, 2017 07:55 - CONCLUSION: 1. Persistent areas of present infarction in the parafalcine region bilaterally, left frontal lobe and left temporal lobe. 2. There appear to be new areas of low density likely representing infarctions in the occipital lobes bilaterally. 3. Status post decompressive left craniotomy. Emerson Romero MD Chest X-Ray 02/14/17 0600 Signed Impressions: Service Date/Time: Tuesday, February 14, 2017 04:56 - CONCLUSION: 1. Bilateral perihilar densities. 2. Removal right sided chest tube. No significant pneumothorax. Eb Guerin MD /// 06:00 18:00 06:00 18:00 06:00 18:00 Intake Total 2400 ml 922 ml Output Total 2750.0 ml 1300 ml 1200 ml 750 ml 3425 ml 750 ml Balance -350.0 ml -1300 ml -1200 ml 172 ml -3425 ml -750 ml Intake IV Total 1378 ml 577 ml Tube Feeding 682 ml 345 ml Other 340 ml Output Urine Total 2750 ml 1300 ml 1200 ml 750 ml 3425 ml 750 ml Tube Feeding Residual Discard 0 ml 0 ml # Bowel Movements 0 1 1 Laboratory Tests Test 02/14/17 02/14/17 02/14/17 04:26 05:00 11:00 White Blood Count 9.8 TH/MM3 Red Blood Count 3.01 MIL/MM3 Hemoglobin 9.1 GM/DL Hematocrit 27.0 % Mean Corpuscular Volume 89.7 FL Mean Corpuscular Hemoglobin 30.3 PG Mean Corpuscular Hemoglobin 33.7 % Concent Red Cell Distribution Width 15.7 % Platelet Count 721 TH/MM3 Mean Platelet Volume 7.3 FL Neutrophils (%) (Auto) % Lymphocytes (%) (Auto) % Monocytes (%) (Auto) % Eosinophils (%) (Auto) % Basophils (%) (Auto) % Neutrophils # (Auto) TH/MM3 Lymphocytes # (Auto) TH/MM3 Monocytes # (Auto) TH/MM3 Eosinophils # (Auto) TH/MM3 Basophils # (Auto) TH/MM3 CBC Comment AUTO DIFF Differential Total Cells 100 Counted Neutrophils % (Manual) 70 % Band Neutrophils % 10 % Lymphocytes % 15 % Monocytes % 4 % Eosinophils % 1 % Neutrophils # (Manual) 7.8 TH/MM3 Nucleated Red Blood Cells 1 /100 WBC Differential Comment FINAL DIFF MANUAL Platelet Estimate HIGH Platelet Morphology Comment NORMAL Hematology Comments Sodium Level 144 MEQ/L Potassium Level 4.2 MEQ/L Chloride Level 106 MEQ/L Carbon Dioxide Level 27.9 MEQ/L Anion Gap 10 MEQ/L Blood Urea Nitrogen 9 MG/DL Creatinine 0.37 MG/DL Estimat Glomerular Filtration 186 ML/MIN Rate Random Glucose 117 MG/DL Calcium Level 7.8 MG/DL Magnesium Level 1.8 MG/DL Total Bilirubin 0.4 MG/DL Aspartate Amino Transf 43 U/L (AST/SGOT) Alanine Aminotransferase 31 U/L (ALT/SGPT) Alkaline Phosphatase 224 U/L Total Protein 5.5 GM/DL Albumin 2.0 GM/DL Blood Gas Puncture Site RT RADIAL Blood Gas Patient Temperature 98.6 Blood Gas HCO3 30 mmol/L Blood Gas Base Excess 7.0 mmol/L Blood Gas Oxygen Saturation 95 % Arterial Blood pH 7.56 Arterial Blood Partial 34 mmHg Pressure CO2 Arterial Blood Partial 78 mmHg Pressure O2 Arterial Blood Oxygen Content 10.5 Vol % Arterial Blood 1.7 % Carboxyhemoglobin Arterial Blood Methemoglobin 0.3 % Blood Gas Hemoglobin 7.7 G/DL Oxygen Delivery Device TC Blood Gas Liter Flow 6 L/M Blood Gas Inspired Oxygen 28 % Vancomycin Level Trough 11.0 MCG/ML Vital Signs Date Time Temp Pulse Resp B/P Pulse Ox O2 Delivery O2 Flow Rate FiO2 02/16/17 11:43 99.5 111 20 126/59 99 02/16/17 08:38 99.3 111 20 127/59 98 02/16/17 08:00 110 02/16/17 08:00 Trach Collar 6.00 35 02/16/17 04:00 98.8 110 20 124/61 98 02/16/17 00:00 99.4 108 20 132/84 96 02/15/17 23:18 96 Trach Collar 6.00 28 02/15/17 20:00 99.2 106 20 127/60 99 02/15/17 20:00 105 02/15/17 15:49 99.2 103 20 119/62 99 02/15/17 12:03 94 T-piece 5.00 28 02/15/17 11:45 98.5 105 24 147/71 98 02/15/17 08:05 98.6 103 24 124/78 100 02/15/17 08:00 101 02/15/17 08:00 99 Trach Collar 6.00 35 02/15/17 04:00 98.9 108 20 128/65 98 02/15/17 00:00 98.9 97 18 128/56 96 02/14/17 23:27 98 T-piece 5.00 28 02/14/17 23:04 97 T-Piece 35 02/14/17 23:04 100.0 02/14/17 20:00 99.6 112 18 131/60 96 02/14/17 16:31 100.8 126 20 134/85 98 02/14/17 13:00 100 T-Piece 35 02/14/17 12:54 99.5 107 20 120/72 99 02/14/17 10:00 102 02/14/17 08:00 96 02/14/17 08:00 99.5 96 26 126/58 100 02/14/17 07:00 100 T-Piece 35 02/14/17 06:00 102 02/14/17 04:00 99.8 106 28 123/59 100 02/14/17 04:00 102 02/14/17 02:00 106 02/14/17 00:00 108 02/14/17 00:00 99.3 108 28 112/56 98 02/13/17 22:00 106 02/13/17 20:00 98.2 104 26 129/64 100 02/13/17 20:00 100 T-Piece 35 02/13/17 20:00 104 02/13/17 18:00 105 02/13/17 16:00 97 02/13/17 16:00 101.8 102 20 111/58 100 (Marques Moreno) Medical Decision Making Impression and Plan Impression: 1. Severe acute left hemisphere subdural hematoma with severe midline shift and mass effect. 2. Right temporal bone fracture-nondisplaced CT brain demonstrates no significant change in the left SDH or the right temporal lobe low attenuation region compared to . MRI brain demonstrates some residual left SDH to occipital region & posterior fossa, bilateral temporal lobe contusions & scattered SAH, with a minimal right to left shift. There are multiple haemosiderin deposits noted on susceptibility weighted images over both convexities and the left lateral. 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 CT brain demonstrated persistent infarction at the bilateral parafalcine region, left frontal lobe & left temporal lobe. New hypodense areas were noted to the bilateral occipital lobes which could reflect infarction. Patient with stable put poor neurological response. POD #20 () s/p: 1. Left decompressive frontotemporoparietal craniotomy for evacuation of acute subdural hematoma. 2. Left frontal ventriculostomy catheter placement 3. Left frontal twist drill for intracranial pressure monitor placement Plan: Primary management per Trauma. Continue neuro checks. Stat CT brain for worsening neuro status. Seizure prophylaxis. Ulcer prophylaxis. Continue non chemical DVT prophylaxis. Okay for Lovenox. (Marques Moreno) Attending Statement The exam, history, and the medical decision-making described in the above note were completed with the assistance of the mid-level provider. I reviewed and agree with the findings presented. I attest that I had a [id number] encounter with the patient on the same day, and personally performed and documented my assessment and findings in the medical record. CT scan head 8018 with bilateral frontal temporal parafalcine infarcts. Remains with minimal responses Continuing to monitor sodium On-T-piece (Nic Bahena MD) Marques Moreno Feb 16, 2017 15:48 Nic Bahena MD Apr 12, 2017 08:07
[2017-02-16] MEDS: MAGNESIUM HYDROXIDE SUSP 30 ML CUP PO SCH (20:12)
[2017-02-17] VITALS (8 sets, daily range): BP systolic 122–137; BP diastolic 51–69; PULSE 107–121; RESP 19–20; TEMP 96.6–99; O2SAT 99–100
[2017-02-17] MEDS: CEFEPIME INJ 2,000 MG in SODIUM CHLORIDE 0.9% INJ 100 ML IV SCH ×3 (01:18→16:14)
[2017-02-17] MEDS: ENOXAPARIN SODIUM 30 MG/0.3 ML SYRINGE SQ SCH ×2 (01:19→13:08)
[2017-02-17] MEDS: VANCOMYCIN 1,000 MG/NS 250 ML IV SCH ×4 (02:00→09:57)
--- NOTE | 2017-02-17 08:32 | HHI.PR ---
Neuropsych Emotional Emotional: UnabletoAssess: Emotional, Anxious/Fearful, Depressed/Sad, Hostile/ Resentful, Irritable/Angry/Frustrate, Labile, Constricted/Blunted Behavior Behavior: Unable to Asses: Behavior, Coping/Acceptance, Cooperative w/ Treatment, Motivation, Frustration Tolerance/[place], Impulsive/Agitated, Suicidal/ Homicidal Risk Cognitive Cognitive: Unable to Asses: Cognitive, Attention/Concentration, Confused/ Orientation, Insight/Awareness, Judgement/Problem-Solving, Memory Psychosocial Psychosocial: Intact: Psychosocial, Family/Other Adjustment, Moderate: Realistic Expectation, Unable to Asses: Self-Esteem/Confidence Progress Notes/Response to Tx Contents of Sessions: Adjustment, Level of Consciousness Time with Patient: 15 minutes Premorbid psychological status Premorbid Cognitive, Emotional and Behavioral Status: Deferred. No family present to ascertain premorbid abilities. Behavioral Reactions of Patient and Family/Support System: Deferred. The patients family is likley experiencing ongoing issues of adjustment given the nature of the injury, and this aspect of recovery will require ongoing monitoring. Emotional/Behavioral Status of Patient and Family/Support System: Deferred. Pertinent issues, if appropriate to this patients clinical care, are described in detail above. Maximizing acute care outcome It is recommended that the patient be monitored for emergent behavioral impulsivity as the medical condition evolves. This patients neuropathological challenges may limit their rehabilitation potential going forward, and these challenges will require specialized therapeutic skills to maximize outcome. Additionally, the patients family is experiencing ongoing issues of adjustment given the traumatic nature of the injury, and they may benefit from ongoing psychological assistance. Anticipated Problems Ongoing areas of concern will include behavioral impulsivity, lack of insight and judgment, which is expected to improve with time and treatment. Presently , the patient unresponsive, intubated and sedated. Treatment Plan This clinician will continue to follow with you throughout the course of this patients acute care treatment, and I will be available to meet with the patient s family/support system to facilitate their understanding and the ongoing care of their family member. The goals of neuropsychological intervention shall be both educational and supportive to the family/support system as is deemed clinically appropriate. [facility] Level: II:General response-total assist Impression This is a 46 year old woman s/p TBI 2T fall on 01/27/2017, with large left temporoparietal SDH, right basal skull fracture through petrous bone with extrusion of brain matter on the right, and is s/p DC/ventriculostomy placement. 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 This is day 21 post injury. The patient opens her eyes to loud voices and withdraws x 4 to pain. She has been accepted at a [facility], awaiting insurance approval. Trauma team consensus is to increase amantadine to 150 q0700 and 1200 , and also ensuring that the medication is being administered according to schedule (yesterday meds were given at 1002 and 1333, not 0700 and 1200). The patient remains at a [facility]. I will continue to follow. Luis Murphy PhD Feb 17, 2017 8:32 am
[2017-02-17] MEDS: DOCUSATE SODIUM 50 MG/SENNA 8.6 MG TAB PO SCH ×2 (09:00→20:57)
[2017-02-17] MEDS: BISACODYL 10 MG SUPP RECTAL SCH (09:00)
[2017-02-17] MEDS: CHLORHEXIDINE 0.12% (ORAL KIT) 15 ML CUP MT SCH ×2 (09:15→20:00)
[2017-02-17] MEDS: FAMOTIDINE 20 MG TAB NG SCH ×2 (09:15→20:57)
[2017-02-17] MEDS: SODIUM CHLORIDE 1 GRAM TAB PO SCH (09:15)
[2017-02-17] MEDS: SODIUM CHLORIDE 0.9% FLUSH 10 ML FLUSH IV FLUSH SCH ×2 (09:15→20:57)
[2017-02-17] MEDS: AMANTADINE HCL SOLN 100 MG/10 ML UDC NG SCH (09:15)
[2017-02-17] MEDS: BACITRACIN TOP OINT 15 GM TUBE TOPICAL SCH ×2 (09:16→20:57)
--- NOTE | 2017-02-17 11:43 | HHI.PR ---
Subjective Subjective Notes PTD: 21 No neuro changes. OPens eyes to voice. Withdraws to pain in all extremities. Objective Vitals/I&O Vital Signs Date Time Temp Pulse Resp B/P Pulse Ox O2 Delivery O2 Flow Rate FiO2 02/17/17 08:32 98.9 117 19 122/61 100 02/16/17 20:00 Trach Collar 6.00 35 Labs Date/Time Procedure Status Source Growth 02/13/17 07:44 Aerobic Blood Culture - Preliminary Resulted Blood Peripheral NO GROWTH IN 4 DAYS 02/13/17 07:44 Anaerobic Blood Culture - Preliminary Resulted Blood Peripheral NO GROWTH IN 4 DAYS Radiology Last [address] 02/16/17 0600 Signed Impressions: Service Date/Time: Thursday, February 16, 2017 07:55 - CONCLUSION: 1. Persistent areas of present infarction in the parafalcine region bilaterally, left frontal lobe and left temporal lobe. 2. There appear to be new areas of low density likely representing infarctions in the occipital lobes bilaterally. 3. Status post decompressive left craniotomy. Emerson Romero MD Narrative Exam GENERAL: This is a 46-year-old female lying in bed. MINING TECHNICIAN in place. SKIN: Warm and dry. HEAD: Atraumatic. Normocephalic. EYES: PERRLA ENT: No nasal bleeding or discharge. Mucous membranes pink and moist. NECK: MINING TECHNICIAN. Trachea midline. No JVD. CARDIOVASCULAR: Regular rate and rhythm. RESPIRATORY: No accessory muscle use. Lungs are clear to auscultation. Breath sounds equal bilaterally. No distress or dyspnea. GASTROINTESTINAL: BS + x 4 quads. Abdomen soft, non-tender, nondistended. PEG tube in place. Sanchez catheter in place to bedside drainage bag. MUSCULOSKELETAL: Extremities without cyanosis, or edema. + peripheral pulses x 4 extremities. Warm with good capillary refill. NEUROLOGICAL: MINING TECHNICIAN. Opens eyes to voice. Withdraws to pain in all 4 extremities. A/P Problem List: (1) Acute subdural hematoma (2) Traumatic brain injury (3) Pneumothorax (4) Encephalopathy (5) Pain (6) Basilar skull fracture (7) Fracture of left pelvis (8) Sacral fracture (9) Right scapula fracture Assessment and Plan [place]: This is a 46-year-old female who sustained a fall. She fell through the attic floor. Unresponsive. GCS 3. Pupils: L=6, R=1. Intubated in the ED INJURIES: RIGHT temporal bone fx LEFT SDH (w/ 16 mm shift) RIGHT scapula fx (non-op) RIGHT sacrum fx (non-op) LEFT pubic rami fx(non-op) Procedures: 01/27: LEFT decompressive craniectomy 02/03: EVD removed 02/04: [place] removed R CT placed (CL related PTX) 02/02: R CT dislodged and found in bed 02/03: RIGHT lateral pigtail placed 02/04: Right anterior pigtail placed (still had PTX) 02/09: R lateral CT dislodged and found in bed 02/11: PEG 02/11: MINING TECHNICIAN Consults: CCM. Neurosurgery. Orthopedics. Infectious disease. Pharmacy. Rehabilitation medicine. Neuropsych. Palliative care. Case management. Diet: Vital 1.5@50 mL/HR per boat joiner's recommendation. Tolerating well. Pulmonary: Trach collar at 28%. Encourage staff to perform good pulmonary toileting. L&S via trach q 4 hrs and PRN. Request RN to document frequency, amount, consistency and color of sputum. PAIN Management: [place] 5 mg q6h PRN. Activity: OOB to stretcher chair TID. PT and OT ordered. Roho cushion ordered for when patient is in stretcher chair. Patient remains flaccid in all 4 extremities - receives passive range of motion. To prevent skin breakdown. GI prophylaxis: Pepcid BID. Bowel regimen: Shannon-colace BID. MOM HS. Lactulose. Bisacodyl VT PRN LBM: . Maintain Sanchez catheter due to prolonged immobilization. DVT prophylaxis: Mechanical VTE with SCDs. Chemical management with Lovenox 30 BID SQ. DC Planning: Case management consulted for assistance with final discharge disposition. Patient will need long-term placement. Patient has been accepted by [facility], and awaiting insurance authorization. Pt is clear to discharge from a trauma surgery standpoint once insurance authorization is complete. Emotional support provided to patient and at bedside and plan of care discussed. Discussed with RN at bedside. Patient is hemodynamically stable and managed on the med/surg floor in a room close to the nursing station due to her trach. The trauma team will round each day, and evaluate plan of care on a daily basis. RIGHT temporal bone fx LEFT SDH (w/ 16 mm shift) Neurosurgery consulted and assisting in management and care Serial neuro checks 02/16: Follow up head CT: Persistent areas of present infarction in the parafalcine region bilaterally - Left frontal lobe and left temporal lobe. There appears to be new areas of low density likely representing infarctions in the occipital lobes bilaterally. Pain management Amantadine increased to 150 mg BID Valproic acid 250 mg TID MINING TECHNICIAN placement PEG placement Will need full-time SNF placement - patient has been accepted by [facility]. Awaiting insurance authorization RIGHT scapula fx (non-op) RIGHT sacrum fx (non-op) LEFT pubic rami fx(non-op) Orthopedics consulted and assisting in management and care All injuries were nonoperative at this point Pain management OOB to stretcher chair PT and OT ordered NWB RUE, TTWB RLE, FWB LLE Remarks eyes open starts to track systemically stable transfer to select Problem Qualifiers (1) Traumatic brain injury: Qualified Code: S06.9X9D - Traumatic brain injury with loss of consciousness, subsequent encounter (2) Pneumothorax: Qualified Code: J93.9 - Pneumothorax, unspecified type (3) Basilar skull fracture: Qualified Code: S02.101A - Closed fracture of right side of base of skull, initial encounter (4) Fracture of left pelvis: Qualified Code: S32.502A - Closed nondisplaced fracture of left pubis, initial encounter (5) Sacral fracture: Qualified Code: S32.19XA - Other closed fracture of sacrum, initial encounter (6) Right scapula fracture: Qualified Code: S42.191A - Closed fracture of other part of right scapula, initial encounter Deysi Rodrigues Feb 17, 2017 11:43 Antoinette Garner MD Feb 17, 2017 15:57
--- NOTE | 2017-02-17 13:41 | HHI.NSPN ---
(Marques MorenoCash CHRIS) History Chief Complaint: Unable to obtain due to clinical condition. (Marques Moreno) Interval History 01/27: Patient is a middle-aged female who according to her family fell through a garage ceiling landing on the floor one-story down. Positive loss of consciousness. Patient was reportedly unresponsive immediately after the event. No seizure activity reported. She was GCS 3-4 at the scene and brought to [facility] emergency room as a trauma alert per EMS. She was intubated in the emergency room. She was noted to have a fixed dilated left pupil and pinpoint right pupil in the emergency room on initial evaluation. The undersigned reviewed the patient's CT scan images shortly after completion while the patient was in the CT scanning suite. Images revealed a large left hemispheric acute subdural hematoma with approximate 16 mm midline shift, significant effacement of the left ventricle and cisterns. Patient was taken emergently to the operating room from the CT scanning suite. 01/28: The patient is intubated and mechanically ventilated with propofol & fentanyl for sedation. She is on norepinephrine for blood pressure support which Nursing states she is titrating down. Nursing also reported that the patient did squeeze with her hands this morning. The patient was transfused this morning for a haemoglobin of 7.4. 01/29: The patient remains intubated and mechanically ventilated. The propofol & fentanyl drips have been off since 929 this morning. She is no longer on any vasopressors. Saline 3% is infusing. Nursing states she is withdrawing but has not had any eye opening. ICP has been running 4 to 5 on the ventriculostomy per Nursing and that the bolt pressure is not being used since it was reportedly not in proper position. Nursing also reports excessive drainage from the ventriculostomy. 01/30: Patient intubated on minimal sedation. Not opening eyes to verbal or tactile stimulation 01/31: Patient remains intubated on minimal sedation. At this point she is opening her eyes and tracking to verbal stimulation. 02/01: The patient continues to be intubated and mechanically ventilated. The fentanyl was discontinued this morning.Nursing reported that the left pupil appeared slightly larger this morning and that the ventriculostomy ICP has been ranging between 5 and 10. 8: The patient is still intubated and mechanically ventilated. She remains off any sedation. Nursing reported that she did follow commands to move the right hand once yesterday. When an EEG was done yesterday the tech reported to Nursing that there was fresh blood to the right side of the head. 02/03: The patient remains intubated and mechanically ventilated. She is noted to be moving the right side extremities spontaneously. Nursing reports that she also was withdrawing on the left to noxious stimuli. The Apple [employer] is preparing to replace the chest tube. The patient did spike a temperature to 103.1 yesterday afternoon. 3: The patient is still intubated and mechanically ventilated. She is moving the right lower extremity spontaneously. Nursing reports no response to stimuli with the left upper extremity, otherwise she is withdrawing still. The ventriculostomy was withdrawn yesterday due to Gram variable rods noted on the Gram stain off the CSF specimen sent for culture when she spiked her temperature on . 8/5: intubated, sedation off. not opening eyes or following command. withdraws x 4. 8/6: MRI Brain completed yesterday, otherwise no changes to neuro checks overnight 02/08: When seen this morning the patient was intubated and mechanically ventilated. She was not on any drips for sedation. Respiratory was present in the room and was going to place her on CPAP. 02/09: The patient remains intubated and mechanically ventilated when seen this afternoon. Nursing reports that the patient failed a CPAP trial and went apneic. The plan is to do a trach tomorrow according to Nursing. 02/10: This afternoon the patient is intubated and on CPAP. 02/11: The patient is sedated when seen due to having a tracheostomy done at the bedside just prior to her being seen. During the morning the patient also had a PEG tube done at the bedside. 02/13: The patient is trached and on a T-piece when seen this morning. She is noted to have the left eye partially opened. She is not on any sedation. 02/15: The patient is awake when seen but doesn't respond to verbal stimuli. She is on a T-piece. She was transferred from the [facility] to a regular med/surg floor yesterday. 02/16: This afternoon the patient is awake when seen. She continues to be on a T- piece. She went for a repeat CT brain this morning demonstrated new areas of low density to the bilateral occipital lobes which may represent infarction as well as the known infarct areas. 02/17: The patient has her eyes closed but opens them on her own. She is on the T -piece still. (Marques Moreno) System Review Comments Unable to obtain due to clinical condition. (Marques Moreno) Exam Results Vital Signs Date Time Temp Pulse Resp B/P Pulse Ox O2 Delivery O2 Flow Rate FiO2 02/17/17 12:12 98.1 114 20 135/68 100 02/16/17 20:00 Trach Collar 6.00 35 Intake and Output 02/16/17 02/16/17 02/16/17 07:59 15:59 23:59 Output Total 2200 ml 500 ml 1350 ml Balance -2200 ml -500 ml -1350 ml (Marques Moreno) Physical Examination GENERAL: The patient is trached and on a T-piece w/o any sedation. NAD. SKIN: Skin warm & dry. Multiple abrasions essentially healed. HEENT: Well approximated left-sided craniotomy, w/o any evident infection. Flap soft. NECK: No JVD, trachea midline, tracheostomy in place. CARDIOVASCULAR: Radial & pedal pulses 2+ bilaterally, cap refill < 2 sec, no pedal edema. RESPIRATORY: Equal excursion, nonlaboured, trached and on a T-piece. GASTROINTESTINAL: Abdomen soft,PEG tube w/enteral feeds. MUSCULOSKELETAL: Scattered abrasions & ecchymosis essentially healed. No evident deformities or clubbing. NEUROLOGICAL: GCS 8-9T (E4 V1T M3-4). Eyes open. Appears to track downward with eyes. No spontaneous movement noted. BLE with flexion/withdrawal to localised noxious stimuli but none w/BUE. With central noxious stimuli withdrawal/flexion to BLE & LUE but not the RUE. (Marques Moreno) Medical Decision Making Impression and Plan Impression: 1. Severe acute left hemisphere subdural hematoma with severe midline shift and mass effect. 2. Right temporal bone fracture-nondisplaced CT brain demonstrates no significant change in the left SDH or the right temporal lobe low attenuation region compared to . MRI brain demonstrates some residual left SDH to occipital region & posterior fossa, bilateral temporal lobe contusions & scattered SAH, with a minimal right to left shift. There are multiple haemosiderin deposits noted on susceptibility weighted images over both convexities and the left lateral. 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 CT brain demonstrated persistent infarction at the bilateral parafalcine region, left frontal lobe & left temporal lobe. New hypodense areas were noted to the bilateral occipital lobes which could reflect infarction. Patient with stable neurological response which is poor. POD #21 () s/p: 1. Left decompressive frontotemporoparietal craniotomy for evacuation of acute subdural hematoma. 2. Left frontal ventriculostomy catheter placement 3. Left frontal twist drill for intracranial pressure monitor placement Plan: Primary management per Trauma. Continue neuro checks. Stat CT brain for worsening neuro status. Seizure prophylaxis. Ulcer prophylaxis. Continue non chemical DVT prophylaxis. Okay for Lovenox. (Marques Moreno) Impression and Plan The exam, history, and the medical decision-making described in the above note were completed with the assistance of the mid-level provider. I reviewed and agree with the findings presented. I attest that I had a [id number] encounter with the patient on the same day, and personally performed and documented my assessment and findings in the medical record. No improvement in neurologic exam Continue to follow sodium Continue supportive care Overall poor prognosis (Nic Bahena MD) Marques Moreno Feb 17, 2017 13:41 Nic Bahena MD Apr 12, 2017 08:09
[2017-02-17] MEDS: MAGNESIUM HYDROXIDE SUSP 30 ML CUP PO SCH (20:57)
[2017-02-18] VITALS (8 sets, daily range): BP systolic 128–137; BP diastolic 67–83; PULSE 110–119; RESP 20–33; TEMP 97.2–98.9; O2SAT 98–100
[2017-02-18] MEDS: ENOXAPARIN SODIUM 30 MG/0.3 ML SYRINGE SQ SCH ×2 (02:16→14:14)
[2017-02-18] MEDS: RESP: ALBUTEROL 2.5 MG/IPRATROPIUM 0.5 MG NEB (PRN) NEB (02:53)
[2017-02-18] MEDS: CHLORHEXIDINE 0.12% (ORAL KIT) 15 ML CUP MT SCH (08:00)
--- NOTE | 2017-02-18 08:40 | HHI.PR ---
Neuropsych Emotional Emotional: UnabletoAssess: Emotional, Anxious/Fearful, Depressed/Sad, Hostile/ Resentful, Irritable/Angry/Frustrate, Labile, Constricted/Blunted Behavior Behavior: Unable to Asses: Behavior, Coping/Acceptance, Cooperative w/ Treatment, Motivation, Frustration Tolerance/[place], Impulsive/Agitated, Suicidal/ Homicidal Risk Cognitive Cognitive: Unable to Asses: Cognitive, Attention/Concentration, Confused/ Orientation, Insight/Awareness, Judgement/Problem-Solving, Memory Psychosocial Psychosocial: Intact: Psychosocial, Family/Other Adjustment, Realistic Expectation, Unable to Asses: Self-Esteem/Confidence Progress Notes/Response to Tx Contents of Sessions: Adjustment, Level of Consciousness Time with Patient: 30 minutes Premorbid psychological status Premorbid Cognitive, Emotional and Behavioral Status: Deferred. No family present to ascertain premorbid abilities. Behavioral Reactions of Patient and Family/Support System: Deferred. The patients family is likley experiencing ongoing issues of adjustment given the nature of the injury, and this aspect of recovery will require ongoing monitoring. Emotional/Behavioral Status of Patient and Family/Support System: Deferred. Pertinent issues, if appropriate to this patients clinical care, are described in detail above. Maximizing acute care outcome It is recommended that the patient be monitored for emergent behavioral impulsivity as the medical condition evolves. This patients neuropathological challenges may limit their rehabilitation potential going forward, and these challenges will require specialized therapeutic skills to maximize outcome. Additionally, the patients family is experiencing ongoing issues of adjustment given the traumatic nature of the injury, and they may benefit from ongoing psychological assistance. Anticipated Problems Ongoing areas of concern will include behavioral impulsivity, lack of insight and judgment, which is expected to improve with time and treatment. Presently , the patient unresponsive, intubated and sedated. Treatment Plan This clinician will continue to follow with you throughout the course of this patients acute care treatment, and I will be available to meet with the patient s family/support system to facilitate their understanding and the ongoing care of their family member. The goals of neuropsychological intervention shall be both educational and supportive to the family/support system as is deemed clinically appropriate. [facility] Level: II:General response-total assist Impression This is a 46 year old woman s/p TBI 2T fall on 01/27/2017, with large left temporoparietal SDH, right basal skull fracture through petrous bone with extrusion of brain matter on the right, and is s/p DC/ventriculostomy placement. 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 This is day 22 post injury. There has been no neurobehavioral change with this patient, and she remains at [place]. She remains on Amantadine 150 q0700 and 1200. I discussed her neurobehavioral status and prognosis with her mother, who was bedside, and answered questions pertaining to treatment options and recovery. I will continue to follow and monitor her neurobehavioral status, and to provide education and support to her family. Luis Murphy PhD Feb 18, 2017 8:39 am
[2017-02-18] MEDS: DOCUSATE SODIUM 50 MG/SENNA 8.6 MG TAB PO SCH (09:00)
[2017-02-18] MEDS: BISACODYL 10 MG SUPP RECTAL SCH (09:00)
[2017-02-18] MEDS ORDERED: AMANTADINE HCL SOLN 100 MG/10 ML UDC NG SCH (09:00)
[2017-02-18] MEDS: SODIUM CHLORIDE 0.9% FLUSH 10 ML FLUSH IV FLUSH SCH (09:00)
[2017-02-18] MEDS: BACITRACIN TOP OINT 15 GM TUBE TOPICAL SCH (09:00)
[2017-02-18] MEDS: FAMOTIDINE 20 MG TAB NG SCH (09:16)
[2017-02-18] MEDS: SODIUM CHLORIDE 1 GRAM TAB PO SCH (09:16)
--- NOTE | 2017-02-18 10:41 | HHI.PR ---
Subjective Subjective Notes PTD: 20 No changed in neurological status. Parents at bedside. Objective Vitals/I&O Vital Signs Date Time Temp Pulse Resp B/P Pulse Ox O2 Delivery O2 Flow Rate FiO2 02/18/17 08:00 98.0 110 33 132/69 98 02/18/17 02:54 Trach Collar 5.00 28 Labs Laboratory Tests Test 02/14/17 02/14/17 02/14/17 04:26 05:00 11:00 White Blood Count 9.8 TH/MM3 Red Blood Count 3.01 MIL/MM3 Hemoglobin 9.1 GM/DL Hematocrit 27.0 % Mean Corpuscular Volume 89.7 FL Mean Corpuscular Hemoglobin 30.3 PG Mean Corpuscular Hemoglobin 33.7 % Concent Red Cell Distribution Width 15.7 % Platelet Count 721 TH/MM3 Mean Platelet Volume 7.3 FL Neutrophils (%) (Auto) % Lymphocytes (%) (Auto) % Monocytes (%) (Auto) % Eosinophils (%) (Auto) % Basophils (%) (Auto) % Neutrophils # (Auto) TH/MM3 Lymphocytes # (Auto) TH/MM3 Monocytes # (Auto) TH/MM3 Eosinophils # (Auto) TH/MM3 Basophils # (Auto) TH/MM3 CBC Comment AUTO DIFF Differential Total Cells 100 Counted Neutrophils % (Manual) 70 % Band Neutrophils % 10 % Lymphocytes % 15 % Monocytes % 4 % Eosinophils % 1 % Neutrophils # (Manual) 7.8 TH/MM3 Nucleated Red Blood Cells 1 /100 WBC Differential Comment FINAL DIFF MANUAL Platelet Estimate HIGH Platelet Morphology Comment NORMAL Hematology Comments Sodium Level 144 MEQ/L Potassium Level 4.2 MEQ/L Chloride Level 106 MEQ/L Carbon Dioxide Level 27.9 MEQ/L Anion Gap 10 MEQ/L Blood Urea Nitrogen 9 MG/DL Creatinine 0.37 MG/DL Estimat Glomerular Filtration 186 ML/MIN Rate Random Glucose 117 MG/DL Calcium Level 7.8 MG/DL Magnesium Level 1.8 MG/DL Total Bilirubin 0.4 MG/DL Aspartate Amino Transf 43 U/L (AST/SGOT) Alanine Aminotransferase 31 U/L (ALT/SGPT) Alkaline Phosphatase 224 U/L Total Protein 5.5 GM/DL Albumin 2.0 GM/DL Blood Gas Puncture Site RT RADIAL Blood Gas Patient Temperature 98.6 Blood Gas HCO3 30 mmol/L Blood Gas Base Excess 7.0 mmol/L Blood Gas Oxygen Saturation 95 % Arterial Blood pH 7.56 Arterial Blood Partial 34 mmHg Pressure CO2 Arterial Blood Partial 78 mmHg Pressure O2 Arterial Blood Oxygen Content 10.5 Vol % Arterial Blood 1.7 % Carboxyhemoglobin Arterial Blood Methemoglobin 0.3 % Blood Gas Hemoglobin 7.7 G/DL Oxygen Delivery Device TC Blood Gas Liter Flow 6 L/M Blood Gas Inspired Oxygen 28 % Vancomycin Level Trough 11.0 MCG/ML Radiology Last [address] 02/16/17 0600 Signed Impressions: Service Date/Time: Thursday, February 16, 2017 07:55 - CONCLUSION: 1. Persistent areas of present infarction in the parafalcine region bilaterally, left frontal lobe and left temporal lobe. 2. There appear to be new areas of low density likely representing infarctions in the occipital lobes bilaterally. 3. Status post decompressive left craniotomy. Emerson Romero MD Narrative Exam GENERAL: This is a 46-year-old female lying in bed. IMMIGRATION CONSULTANT in place. SKIN: Warm and dry. HEAD: Atraumatic. Normocephalic. EYES: PERRLA ENT: No nasal bleeding or discharge. Mucous membranes pink and moist. NECK: IMMIGRATION CONSULTANT. Trachea midline. No JVD. CARDIOVASCULAR: Regular rate and rhythm. RESPIRATORY: No accessory muscle use. Lungs are clear to auscultation. Breath sounds equal bilaterally. No distress or dyspnea. GASTROINTESTINAL: BS + x 4 quads. Abdomen soft, non-tender, nondistended. PEG tube in place. Sanchez catheter in place to bedside drainage bag. MUSCULOSKELETAL: Extremities without cyanosis, or edema. + peripheral pulses x 4 extremities. Warm with good capillary refill. NEUROLOGICAL: IMMIGRATION CONSULTANT. Opens eyes to voice. Withdraws to pain in all 4 extremities. A/P Problem List: (1) Acute subdural hematoma (2) Traumatic brain injury (3) Pneumothorax (4) Encephalopathy (5) Pain (6) Basilar skull fracture (7) Fracture of left pelvis (8) Sacral fracture (9) Right scapula fracture Assessment and Plan [place]: This is a 46-year-old female who sustained a fall. She fell through the attic floor. Unresponsive. GCS 3. Pupils: L=6, R=1. Intubated in the ED INJURIES: RIGHT temporal bone fx LEFT SDH (w/ 16 mm shift) RIGHT scapula fx (non-op) RIGHT sacrum fx (non-op) LEFT pubic rami fx(non-op) Procedures: 01/27: LEFT decompressive craniectomy 02/03: EVD removed 02/04: Duson removed R CT placed (CL related PTX) 02/02: R CT dislodged and found in bed 02/03: RIGHT lateral pigtail placed 02/04: Right anterior pigtail placed (still had PTX) 02/09: R lateral CT dislodged and found in bed 02/11: PEG 02/11: IMMIGRATION CONSULTANT Consults: CCM. Neurosurgery. Orthopedics. Infectious disease. Pharmacy. Rehabilitation medicine. Neuropsych. Palliative care. Case management. Diet: Vital 1.5@50 mL/HR per manager radiation's recommendation. Tolerating well. Pulmonary: Trach collar at 28%. Encourage staff to perform good pulmonary toileting. L&S via trach q 4 hrs and PRN. Request RN to document frequency, amount, consistency and color of sputum. PAIN Management: Tylenol NG PRN. Activity: OOB to stretcher chair TID. PT and OT ordered. Roho cushion ordered for when patient is in stretcher chair. Patient remains flaccid in all 4 extremities - receives passive range of motion. To prevent skin breakdown. GI prophylaxis: Pepcid BID. Bowel regimen: Shannon-colace BID. MOM HS. Lactulose. Bisacodyl MN PRN LBM: . Maintain Sanchez catheter due to prolonged immobilization. DVT prophylaxis: Mechanical VTE with SCDs. Chemical management with Lovenox 30 BID SQ. DC Planning: Case management consulted for assistance with final discharge disposition. Patient will need long-term placement. Patient has been accepted by [facility], and awaiting insurance authorization. Pt is clear to discharge from a trauma surgery standpoint once insurance authorization is complete. Emotional support provided to patient and parents at bedside and plan of care discussed. Discussed with RN at bedside. Patient is hemodynamically stable and managed on the med/surg floor in a room close to the nursing station due to her trach. The trauma team will round each day, and evaluate plan of care on a daily basis. RIGHT temporal bone fx LEFT SDH (w/ 16 mm shift) Neurosurgery consulted and assisting in management and care Serial neuro checks 02/16: Follow up head CT: Persistent areas of present infarction in the parafalcine region bilaterally - Left frontal lobe and left temporal lobe. There appears to be new areas of low density likely representing infarctions in the occipital lobes bilaterally. Pain management Amantadine 150 mg BID Valproic acid 250 mg TID IMMIGRATION CONSULTANT placement PEG placement Will need full-time SNF placement - patient has been accepted by [facility]. Awaiting insurance authorization RIGHT scapula fx (non-op) RIGHT sacrum fx (non-op) LEFT pubic rami fx(non-op) Orthopedics consulted and assisting in management and care All injuries were nonoperative at this point Pain management OOB to stretcher chair PT and OT ordered NWB RUE, TTWB RLE, FWB LLE The exam, history, and the medical decision-making described in the above note were completed with the assistance of the mid-level provider. I reviewed and agree with the findings presented. I attest that I had a [id number] encounter with the patient on the same day, and personally performed and documented my assessment and findings in the medical record. Problem Qualifiers (1) Traumatic brain injury: Qualified Code: S06.9X9D - Traumatic brain injury with loss of consciousness, subsequent encounter (2) Pneumothorax: Qualified Code: J93.9 - Pneumothorax, unspecified type (3) Basilar skull fracture: Qualified Code: S02.101A - Closed fracture of right side of base of skull, initial encounter (4) Fracture of left pelvis: Qualified Code: S32.502A - Closed nondisplaced fracture of left pubis, initial encounter (5) Sacral fracture: Qualified Code: S32.19XA - Other closed fracture of sacrum, initial encounter (6) Right scapula fracture: Qualified Code: S42.191A - Closed fracture of other part of right scapula, initial encounter Deysi Rodrigues Feb 18, 2017 10:41 Vipul Hernandez MD Feb 20, 2017 18:04
[2017-02-18] MEDS ORDERED: AMANTADINE HCL SOLN 100 MG/10 ML UDC PO SCH (12:00)
--- NOTE | 2017-02-18 16:24 | HHI.PR ---
Subjective Subjective Comments Mother at bedside. Patient resting comfortably in bed. Does not appear to be in any pain or discomfort. Allergies: Coded Allergies: No Known Allergies (Unverified , 01/31/17) per Review of Systems All other ROS: Unable to obtain Exam I&O / VS 02/17/17 02/17/17 02/18/17 15:00 23:00 07:00 Intake Total 1262 ml Output Total 2150 ml 1050 ml 450 ml Balance -888 ml -1050 ml -450 ml Intake IV Total 807 ml Tube Feeding 455 ml Output Urine Total 2150 ml 1050 ml 450 ml Vital Signs Date Time Temp Pulse Resp B/P Pulse Ox O2 Delivery O2 Flow Rate FiO2 02/18/17 13:57 98 Trach Collar 28 02/18/17 12:00 97.7 119 30 128/81 99 02/18/17 08:00 98.0 110 33 132/69 98 02/18/17 04:00 97.7 117 20 130/83 100 02/18/17 02:54 100 Trach Collar 5.00 28 02/18/17 00:00 97.2 119 20 137/76 99 02/17/17 20:00 96.6 121 20 137/69 99 02/17/17 19:00 Trach Collar 6.00 28 02/17/17 18:09 100 Trach Collar 6.00 28 General: No acute distress Respiratory: Other (Trach in place with trach collar 5L 28%) Musculoskeletal: ROM (Within functional limits) Psychiatric: Other (Generalized response to sternal rub; not following to open eyes or focus to voice) Neurologic: Pupils (Reactive bilaterally), EOM (Not tracking to voice), Speech (Nonverbal) Clonus: Negative Assessment and Plan Diagnosis: (1) Traumatic brain injury Encounter type: subsequent encounter Loss of consciousness presence/ duration: with LOC of unspecified duration Assessment 1. Traumatic brain injury 01/27/17 status post fall including large acute subdural hematoma left frontal temporal parietal area measuring 20 mm with possible epidural components superiorly; 7 mm of subfalcine herniation to the right with diffuse effacement of the left cerebral sulci and right temporal fracture status post left decompressive frontotemporal parietal craniotomy with evacuation of subdural hematoma with placement of ICP monitor and ventriculostomy. Now [place] level 2 2. Associated injuries include: -Left superior and inferior pubic rami fracture -Right sacral fracture -Right scapular fracture 3. Trach on trach collar 4. PEG Plan 1. PT/OT providing range of motion. Patient currently dependent for all mobility and ADLs 2. Speech therapy following for sensory stimulation and some response to ice on the lower extremities. 3. Appreciate neuropsychology consult and follow-up. Amantadine 150 mg q 0700 and 1200. Dose adjusted 02/18/[address] for VTE prophylaxis 5. Continue to reposition every 2 hours to protect skin 6. Case management has referred for LTAC and patient for transfer later today 7. Will follow at discharge as appropriate. Terri Springer MD Feb 18, 2017 16:24
--- NOTE | 2017-02-19 11:26 | PD.NP.DS ---
Discharge Summary Reason for Referral: The patient is a 46 year old left handed female status post traumatic brain injury secondary to a fall sustained on 01/27/2017. The patient was working on her home and fell through the rafters, landing on her head. On admission, she was LOC with blown left pupil, GCS of 3 and bilateral babinski signs. Head CT notable for large left temporoparietal SDH, right basal skull fracture through petrouos bone with extrusion of brain matter on right. She underwent R DC with SDH evacuation and ventriculostomy placed. She underwent baseline neurobehavioral status examination per trauma protocol to assess cognitive, behavioral and emotional aspects of the injury. Diagnostic impressions at that time were that the patients cognitive and behavioral status met criteria for [facility] Level I. Within the context of the trauma team service, neuropsychology followed this patient throughout her acute care stay, providing recommendations concerning processes to facilitate her recovery and family support. The patient remained in acute care for a total of 22 days and was discharged to an LTAC. Past Medical History: Please refer to the patient's history and physical for information concerning the patient's past medical, surgical, and psychiatric histories. Education/Learning Hx: The patient completed high school education. There is no report of learning difficulties, grade repetitions or behavioral difficulties. The patient is . 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 The patient lives in [place], [place]. Premorbid Cognitive, Emotional and Behavioral Status: Stable. No family present to ascertain premorbid abilities. Behavioral Reactions of Patient and Family/Support System: Stable. The patient s family experienced ongoing issues of adjustment given the nature of the injury, and this aspect of recovery will require ongoing monitoring. The family met with me several times during her stay, and they were provided pertinent information concerning brain injury and recovery. Emotional/Behavioral Status of Patient and Family/Support System: Stable. Pertinent issues, if appropriate to this patients clinical care, are described in detail above. Treatment Interventions: During the course of their acute care stay, this patient and their family/ support system were provided information concerning the neuropsychological aspects of the injury, education regarding course of recovery, and psychological support in the form of counseling with the person served and the family/support system as documented in the neuropsychology service progress notes, as deemed clinically appropriate. Current, Cognitive, Emotional and Behavioral Status: Stable. This patient has experienced a severe injury, and will be adjusting to significant cognitive, emotional and behavioral challenges going forward. Impression at Discharge: The cognitive and behavioral status of this patient meets criteria for [place] Level II: Generalized response - total assistance; Major Neurocognitive Disorder due to Traumatic Brain Injury, without behavioral disturbance CODE: F02.81 The above listed diagnoses are supported by the following clinical criteria: Major Neurocognitive Disorder: This person demonstrates a significant cognitive decline from a previous level of estimated baseline performance in one or more cognitive domains (complex attention, executive functioning, learning and memory, language, perceptual-motor, or social cognition) based on the patients /informants report, further documented by todays testing results , with these cognitive deficits interfering with the patients independence in everyday activities. Status of Family/Support System Adjustment: Stable. The patients family/ support system will experience ongoing issues of adjustment given the nature of the injury, and this aspect of the patients recovery will require ongoing monitoring. They were provided my contact information and were told to contact me anytime now or in the future to facilitate their understanding of their loved one's condition. Post Acute Recommendations: It is recommended that the patient continue to be monitored for behavioral impulsivity as they continue to be early in their course of recovery. This patients neuropathological challenges may limit their reintegration into work and family life going forward, and these challenges may require specialized therapeutic skills to maximize outcome. Additionally, the patients family is experiencing ongoing issues of adjustment given the traumatic nature of the injury, and they will need ongoing psychological assistance following their discharge from acute care. Thank you for the opportunity to assist in this patients care. Luis Murphy, Ph.D., ABPP Board Certified in Clinical Neuropsychology [place] [employer] [place] Licensed Psychologist #[id number] Luis Murphy PhD Feb 19, 2017 11:26
--- NOTE | 2017-02-19 12:55 | HHI.DS ---
Discharge Summary Admission Date Jan 27, 2017 at 18:29 Discharge Date: Feb 18, 2017 Admitting Diagnosis left epidural hematoma, (1) Acute subdural hematoma Diagnosis: Principal (2) Traumatic brain injury Diagnosis: Principal (3) Pneumothorax Diagnosis: Principal (4) Encephalopathy Diagnosis: Principal (5) Pain Diagnosis: Principal (6) Basilar skull fracture Diagnosis: Principal (7) Fracture of left pelvis Diagnosis: Principal (8) Sacral fracture Diagnosis: Principal (9) Right scapula fracture Diagnosis: Principal Brief History Fall. Imaging Last Impressions Head CT 02/16/17 0600 Signed Impressions: Service Date/Time: Thursday, February 16, 2017 07:55 - CONCLUSION: 1. Persistent areas of present infarction in the parafalcine region bilaterally, left frontal lobe and left temporal lobe. 2. There appear to be new areas of low density likely representing infarctions in the occipital lobes bilaterally. 3. Status post decompressive left craniotomy. Emerson Romero MD Chest X-Ray 02/14/17 0600 Signed Impressions: Service Date/Time: Tuesday, February 14, 2017 04:56 - CONCLUSION: 1. Bilateral perihilar densities. 2. Removal right sided chest tube. No significant pneumothorax. Eb Guerin MD Brain MRI 02/06/17 0000 Signed Impressions: Service Date/Time: Monday, February 06, 2017 21:31 - CONCLUSION: 1. Postoperative partial left craniectomy for decompression and evacuation of left subdural hematoma. There is some residual subdural hematoma present predominantly posteriorly in the occipital region and posterior fossa. 2. Bilateral temporal lobe contusions with measurements given above. Scattered subarachnoid hemorrhage. 3. Fluid in the temporal bones bilaterally and in the sphenoid sinus. There minimal right to left midline shift. Multiple hemosiderin deposits noted on the susceptibility weighted images especially over both convexities and on the left side laterally. Juan Bajwa MD Upper Extremity Ultrasound 02/04/17 0000 Signed Impressions: Service Date/Time: February 07:52 - CONCLUSION: No DVT is identified. Please note that portions of the basilic and cephalic vein are not visualized. Emerson Mariee MD Hand X-Ray 02/02/17 0000 Signed Impressions: Service Date/Time: Thursday, February 02, 2017 14:00 - CONCLUSION: No acute left hand abnormality is identified. Emerson Mariee MD Thoracic Spine CT 01/27/171699 Signed Impressions: Service Date/Time: Friday, January 27, 2017 17:20 - CONCLUSION: 1. No fracture or subluxation. 2. Minimal subcutaneous emphysema seen within the upper neck likely related to patient's temporal bone fracture. Eb Guerin MD Pelvis X-Ray 01/27/171699 Signed Impressions: Service Date/Time: Friday, January 27, 2017 16:54 - CONCLUSION: 1. Left pubic rami fractures. Otoniel Crain MD Lumbar Spine CT 01/27/171699 Signed Impressions: Service Date/Time: Wednesday, January 27, 2017 17:20 - CONCLUSION: 1. No fracture or subluxation of the lumbar spine. 2. There are fractures of the right sacrum discussed in detail on CT the abdomen/pelvis. Eb Guerin MD Chest CT 01/27/171699 Signed Impressions: Service Date/Time: Friday, January 27, 2017 17:25 - CONCLUSION: 1. Comminuted fracture involving the right scapula. 2. Minimal posterior atelectatic changes bilaterally. Juan Carlos Jc MD Cervical Spine CT 01/27/171699 Signed Impressions: Service Date/Time: Friday, January 27, 2017 17:24 - CONCLUSION: 1. No acute fracture or prevertebral soft tissue swelling. 2. Straightening of the normal cervical lordosis. 3. Cervical spondylosis from C3 through C6. 4. Mild bilateral foraminal narrowing at C3-4, C4-5 and C5-6. Juan Carlos Jc MD Abdomen/Pelvis CT 01/27/171699 Signed Impressions: Service Date/Time: Friday, January 27, 2017 17:25 - CONCLUSION: 1. Acute fractures along the right sacrum as well as the left superior and inferior pubic rami. 2. No intra-abdominal trauma identified. Juan Carlos Jc MD Radius/Ulna X-Ray 01/27/17 0000 Signed Impressions: Service Date/Time: Wednesday, January 27, 2017 16:54 - CONCLUSION: Soft tissue swelling involving the right mid forearm without underlying radial or ulnar fracture. Juan Carlos Jc MD PE at Discharge GENERAL: This is a 46-year-old female lying in bed. 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 SKIN: Warm and dry. HEAD: Atraumatic. Normocephalic. EYES: PERRLA ENT: No nasal bleeding or discharge. Mucous membranes pink and moist. NECK: HAY STACKER OPERATOR. Trachea midline. No JVD. CARDIOVASCULAR: Regular rate and rhythm. RESPIRATORY: No accessory muscle use. Lungs are clear to auscultation. Breath sounds equal bilaterally. No distress or dyspnea. GASTROINTESTINAL: BS + x 4 quads. Abdomen soft, non-tender, nondistended. PEG tube in place. Sanchez catheter in place to bedside drainage bag. MUSCULOSKELETAL: Extremities without cyanosis, or edema. + peripheral pulses x 4 extremities. Warm with good capillary refill. NEUROLOGICAL: HAY STACKER OPERATOR. Opens eyes to voice. Withdraws to pain in all 4 extremities. Hospital Course CAHUILLA: This is a 46-year-old female who sustained a fall. She fell through the attic floor. Unresponsive. GCS 3. Pupils: L=6, R=1. Intubated in the ED. she required a long stay in the ICU requiring mechanical ventilation. She eventually obtained a trach and PEG. She has since been weaned from the ventilator successfully and transferred to the [facility] floor for continued care. She is now stable for transfer to [place] for continued care and rehabilitation. INJURIES: RIGHT temporal bone fx LEFT SDH (w/ 16 mm shift) RIGHT scapula fx (non-op) RIGHT sacrum fx (non-op) LEFT pubic rami fx(non-op) Procedures: 01/27: LEFT decompressive craniectomy 02/03: EVD removed 02/04: [place] removed R CT placed (CL related PTX) 02/02: R CT dislodged and found in bed 02/03: RIGHT lateral pigtail placed 02/04: Right anterior pigtail placed (still had PTX) 02/09: R lateral CT dislodged and found in bed 02/11: PEG 02/11: HAY STACKER OPERATOR Consults: CCM. Neurosurgery. Orthopedics. Infectious disease. Pharmacy. Rehabilitation medicine. Neuropsych. Palliative care. Case management. Diet: Vital 1.5@50 mL/HR per fox farmer's recommendation. Tolerating well. Pulmonary: Trach collar at 28%. Encourage staff to perform good pulmonary toileting. L&S via trach q 4 hrs and PRN. Request RN to document frequency, amount, consistency and color of sputum. PAIN Management: Tylenol NG PRN. Activity: OOB to stretcher chair TID. PT and OT ordered. Roho cushion ordered for when patient is in stretcher chair. Patient remains flaccid in all 4 extremities - receives passive range of motion. To prevent skin breakdown. GI prophylaxis: Pepcid BID. Bowel regimen: Shannon-colace BID. MOM HS. Lactulose. Bisacodyl NH PRN LBM: . Maintain Sanchez catheter due to prolonged immobilization. DVT prophylaxis: Mechanical VTE with SCDs. Chemical management with Lovenox 30 BID SQ. DC Planning: Case management consulted for assistance with final discharge disposition. Patient will need long-term placement. Patient has been accepted by [facility]. Pt is clear to discharge from a trauma surgery standpoint. Emotional support provided to patient and parents at bedside and plan of care discussed. Discussed with RN at bedside. Patient is hemodynamically stable and managed on the med/surg floor in a room close to the nursing station due to her trach. The trauma team will round each day, and evaluate plan of care on a daily basis. RIGHT temporal bone fx LEFT SDH (w/ 16 mm shift) Neurosurgery consulted and assisting in management and care Serial neuro checks 02/16: Follow up head CT: Persistent areas of present infarction in the parafalcine region bilaterally - Left frontal lobe and left temporal lobe. There appears to be new areas of low density likely representing infarctions in the occipital lobes bilaterally. Pain management Amantadine 150 mg BID Valproic acid 250 mg TID HAY STACKER OPERATOR placement PEG placement Will need full-time SNF placement - patient has been accepted by [facility] and DC today RIGHT scapula fx (non-op) RIGHT sacrum fx (non-op) LEFT pubic rami fx(non-op) Orthopedics consulted and assisting in management and care All injuries were nonoperative at this point Pain management OOB to stretcher chair PT and OT ordered NWB RUE, TTWB RLE, FWB LLE Pt Condition on Discharge: Stable Discharge Disposition: Rehab Inpatient Discharge Instructions DIET: Follow Instructions for: On Tube Feeding Additional Diet Instructions: Vital 1.5 @ 50 ml/hr Activities you can perform: Full Weight Bearing, Toe Touch Weight Bearing, Non Weight Bearing Activities to Avoid: Driving for 24 hrs, Concussion Sports, Contact Sports, Lifting/Bending, Strenuous Activity Other Activity Instructions: NON weight bearing right upper extremity Toe touch weight bearing right lower extremity Full weight bearing left lower extremity Deysi Rodrigues Feb 19, 2017 12:55
== END 2017-02-18 19:34 | DRG 3 ==
LOC: NEPI 16:56 → EDBD 18:29 → NEDA 18:29 → N03A 20:37 → N05A 02-14 12:30
PROVIDERS: ADMIT Surgery; ATTEND Surgery
PROC: 5A1955Z Respiratory Ventilation, Greater than 96 Consecutive Hours (ICD-10-PCS; 2017-01-27)
PROC: 009630Z Drainage of Cerebral Ventricle with Drainage Device, Percutaneous Approach (ICD-10-PCS; 2017-01-27)
PROC: 00H032Z Insertion of Monitoring Device into Brain, Percutaneous Approach (ICD-10-PCS; 2017-01-27)
PROC: 4A103BD Monitoring of Intracranial Pressure, Percutaneous Approach (ICD-10-PCS; 2017-01-27)
PROC: 0BH17EZ Insertion of Endotracheal Airway into Trachea, Via Natural or Artificial Opening (ICD-10-PCS; 2017-01-27)
PROC: 02HV33Z Insertion of Infusion Device into Superior Vena Cava, Percutaneous Approach (ICD-10-PCS; 2017-01-27)
PROC: 00C40ZZ Extirpation of Matter from Intracranial Subdural Space, Open Approach (ICD-10-PCS; principal; 2017-01-27 17:43)
PROC: 0W9930Z Drainage of Right Pleural Cavity with Drainage Device, Percutaneous Approach (ICD-10-PCS; 2017-01-28)
PROC: 30233N1 Transfusion of Nonautologous Red Blood Cells into Peripheral Vein, Percutaneous Approach (ICD-10-PCS; 2017-01-28)
PROC: 0W9930Z Drainage of Right Pleural Cavity with Drainage Device, Percutaneous Approach (ICD-10-PCS; 2017-02-03)
PROC: 0W9930Z Drainage of Right Pleural Cavity with Drainage Device, Percutaneous Approach (ICD-10-PCS; 2017-02-04)
PROC: 0B113F4 Bypass Trachea to Cutaneous with Tracheostomy Device, Percutaneous Approach (ICD-10-PCS; 2017-02-11)
PROC: 0DH63UZ Insertion of Feeding Device into Stomach, Percutaneous Approach (ICD-10-PCS; 2017-02-11)
PROC: 0BJ08ZZ Inspection of Tracheobronchial Tree, Via Natural or Artificial Opening Endoscopic (ICD-10-PCS; 2017-02-11)
DX: S06.5X9A Traumatic subdural hemorrhage with loss of consciousness of unspecified duration, initial encounter (principal); G93.40 Encephalopathy, unspecified; A41.9 Sepsis, unspecified organism; S32.592A Other specified fracture of left pubis, initial encounter for closed fracture; G81.94 Hemiplegia, unspecified affecting left nondominant side; J96.00 Acute respiratory failure, unspecified whether with hypoxia or hypercapnia; S32.10XA Unspecified fracture of sacrum, initial encounter for closed fracture; B37.49 Other urogenital candidiasis; I82.611 Acute embolism and thrombosis of superficial veins of right upper extremity; J95.811 Postprocedural pneumothorax; R13.10 Dysphagia, unspecified; D69.6 Thrombocytopenia, unspecified; S06.2X9A Diffuse traumatic brain injury with loss of consciousness of unspecified duration, initial encounter; S06.6X9A Traumatic subarachnoid hemorrhage with loss of consciousness of unspecified duration, initial encounter; F02.80 Dementia in other diseases classified elsewhere, unspecified severity, without behavioral disturbance, psychotic disturbance, mood disturbance, and anxiety; S42.101A Fracture of unspecified part of scapula, right shoulder, initial encounter for closed fracture; R40.2432 Glasgow coma scale score 3-8, at arrival to emergency department; S06.1X9A Traumatic cerebral edema with loss of consciousness of unspecified duration, initial encounter; S02.19XA Other fracture of base of skull, initial encounter for closed fracture; W13.8XXA Fall from, out of or through other building or structure, initial encounter; Y92.008 Other place in unspecified non-institutional (private) residence as the place of occurrence of the external cause; D64.9 Anemia, unspecified; E83.39 Other disorders of phosphorus metabolism; E87.6 Hypokalemia
CPT/HCPCS: 31500; 31624; 32551; 36430; 36556; 36600; 70450; 70551; 71010; 71260; 72125; 72128; 72131; 72170; 73120; 74177; 76937; 80048; 80053; 80164; 80202; 81001; 82435; 82565; 82805; 82945; 82947; 83735; 84100; 84132; 84155; 84157; 84295; 84520; 85007; 85014; 85018; 85025; 85027; 85610; 85730; 86850; 86900; 86901; 86920; 87040; 87070; 87077; 87086; 87106; 87186; 87205; 87640; 87641; 89051; 93971; 94002; 94003; 94640; 94664; 94762; 94770; 95819; 96374; 99291; C1729; C9113; G0390; J0171; J0295; J0360; J0461; J0610; J0690; J0692; J1450; J1580; J1650; J1940; J1953; J2150; J2250; J3010; J3370; J3480; J7030; J7040; J7050; J7060; P9016; Q9967